=== PATIENT | female | born 1950 | race Caucasian/White ===

== ENCOUNTER 2019-12-19 07:52 | Outpatient (CLI) | payer MEDICARE, MEDICAID, SELFPAY ==
--- NOTE | 2019-12-19 07:59 | NM_ITS ---
WS: [id number] NM bone scan whole body* [id number] REASON FOR EXAM: ELEVATED ALK PHOS TECHNICAL: 24.6 mCi technetium 99m HDP at 0810AM JR right axilla. FINDINGS: Degenerated of activity is noted in both knee joints. The cervical area shows slight increased activity from degenerate changes. The ankle show slight increased activity. No pathological activity is seen throughout the skeletal system. NM/NM bone scan whole body* [id number] IMPRESSION: Mild increased activity from degenerate changes. No pathological activity.
== END 2019-12-19 07:53 | disposition home or self-care (01) ==
PROVIDERS: Family Provider Family Medicine; PCP Family Medicine; Visit Provider Family Medicine
DX: R74.8 Abnormal levels of other serum enzymes (principal); M17.0 Bilateral primary osteoarthritis of knee
CPT/HCPCS: 78306; A9561

== ENCOUNTER 2021-02-18 15:06 | Outpatient (CLI) | payer MEDICARE, MEDICAID, SELFPAY ==
--- NOTE | 2021-02-18 15:16 | CT_ITS ---
WS: [id number] LDCT LUNG CANCER SCREENING TECHNIQUE: Noncontrast CT of the chest with coronal and sagittal reformatted images. CLINICAL INFORMATION: NICOTINE DEPENDENCE, CIGARETTES COMPARISON: None. DLP: 54.58 mGy.cm DIvol: 1.[address] scans at [facility] use at least one of these dose optimization techniques: automat ed exposure control; mA and/or kV adjustment per patient size (includes targeted exams where dose is matched to clinical indication); or iterative reconstruction. FINDINGS: Chronic emphysematous changes. No acute pulmonary infiltrates. Calcified granuloma right upper lobe. 5 mm noncalcified nodule left upper lobe. No mediastinal or hilar lymphadenopathy. 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 This can be further evaluated CTA chest. Calcified hilar and subcarinal lymph nodes. Moderate esophageal hiatal hernia. Adrenal glands are normal. Chronic anterior wedging of the thoracolumbar junction. Mild thoracic kyphosis. : CT/CT lung screening [id number] LUNG-RADS: 2-Benign Appearance or Behavior FOLLOW UP: 12 Month: Continue annual screening with LDCT RECOMMEND CTA CHEST FOR FURTHER DETAIL EVALUATION OF THE ANEURYSMAL AORTIC ARCH .
== END 2021-02-18 15:07 | disposition home or self-care (01) ==
LOC: RAD 15:15
PROVIDERS: PCP Family Medicine; Visit Provider Family Medicine
DX: Z12.2 Encounter for screening for malignant neoplasm of respiratory organs (principal); F17.210 Nicotine dependence, cigarettes, uncomplicated
CPT/HCPCS: 71271

== ENCOUNTER 2021-03-14 09:05 | Outpatient (CLI) | payer MEDICARE, MEDICAID, SELFPAY ==
--- NOTE | 2021-03-14 09:10 | MM_ITS ---
WS: [id number] BILATERAL DIGITAL SCREENING MAMMOGRAPHY WITH CAD CLINICAL INFORMATION: SCREENING HISTORY: Screening mammogram. No current complaints. COMPARISON: TECHNIQUE: Bilateral CC and MLO views. FINDINGS: The breasts are composed of heterogeneous fibroglandular density tissue, which can limit the detectio n of small underlying mass lesions. Bilateral nodular breast tissue is similar in appearance. No susp icious mass, asymmetry, calcifications, or architectural distortion. No evidence of malignancy. Vascu lar calcification. MM/[place] [id number] IMPRESSION: BI-RADS: 2-Benign FOLLOW UP: 1 Year Follow-up Recommend return to annual screening mammography.
== END 2021-03-14 09:06 | disposition home or self-care (01) ==
PROVIDERS: PCP Family Medicine; Visit Provider Family Medicine
DX: Z12.31 Encounter for screening mammogram for malignant neoplasm of breast (principal)
CPT/HCPCS: 77067

== ENCOUNTER 2021-03-14 14:06 | Outpatient (CLI) | payer MEDICARE, MEDICAID, SELFPAY ==
--- NOTE | 2021-03-14 14:11 | CT_ITS ---
WS: [id number] CTA THORACIC TECHNIQUE: Contrast enhanced CTA of the thoracic aorta with coronal and sagittal reformatted images a nd maximum intensity projection (MIP) images. CLINICAL INFORMATION: THORACIC AORTIC ANEURYSM COMPARISON: CT lung screening February 18, 2021 DLP: 1149.[address] scans at [facility] use at least one of these dose optimization techniques: automat ed exposure control; mA and/or kV adjustment per patient size (includes targeted exams where dose is matched to clinical indication); or iterative reconstruction. FINDINGS: Moderate aortic atheromatous disease. Descending thoracic aorta measures 3 cm within normal limits. L obulated aortic arch with small eccentric lobulated pseudoaneurysm measuring 1.2 x 0.9 CM. Moderate a ortic atheromatous disease descending thoracic aorta. Moderate esophageal hiatal hernia. Adrenal glands are normal. Coronary calcification. No mediastinal or hilar lymphadenopathy. No axillary lymphadenopathy. 5 mm noncalcified nodule left upper lobe is un changed. A few calcified granulomas. Chronic appearing anterior wedging in the lower thoracic spine a t T11 CT/CT angio chest [id number] IMPRESSION: 1. Moderate aortic atheromatous disease with lobulated thoracic aorta. 2. 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 No evid ence of intramural hematoma. 3. Coronary calcification. 4. Moderate esophageal hiatal hernia. 5. Noncalcified 5 mm nodule left upper lobe unchanged
[2021-03-14 14:36] LABS: Blood Urea Nitrogen 33 mg/dL (8-23)
[2021-03-14] MEDS: iodixanol 320 mg/mL 100mL Btl IV (14:53)
== END 2021-03-14 14:07 | disposition home or self-care (01) ==
PROVIDERS: PCP Family Medicine; Visit Provider Family Medicine
DX: I71.2 Thoracic aortic aneurysm, without rupture (principal); R91.1 Solitary pulmonary nodule; K44.9 Diaphragmatic hernia without obstruction or gangrene; I25.10 Atherosclerotic heart disease of native coronary artery without angina pectoris
CPT/HCPCS: 71275; 82565; 84520; Q9967

== ENCOUNTER 2021-05-15 13:56 | Outpatient (CLI) | payer MEDICARE, MEDICAID, SELFPAY ==
--- NOTE | 2021-05-15 14:07 | XR_ITS ---
WS: [id number] SCREENING DEXA SCAN [facility] CLINICAL INFORMATION: POST MENOPAUSAL COMPARISON: 019 FINDINGS: The L1-L4 bone mineral density measures 1.306 g/cm2. This corresponds to a T score score of 1.0 and Z score of 2.4. Left femoral neck bone mineral density measures 0.895 g/cm2. This corresponds to a T score of -0.9 an d Z score of 0.4. Right femoral neck bone mineral density measures 0.940 g/cm2. This corresponds to a T score -0.5of an d Z score of 0.8. Mean femoral neck bone mineral density measures 0.917 g/cm2. This corresponds to a T score of -0.7 an d Z score of 0.6. XR/XR DEXA axial skeleton* [id number] IMPRESSION: Normal bone mineralization. Patient's FRAX calculated 10 year probability for major osteoporotic fracture i s 17.8 % and osteoporotic hip fracture is 5.0%.
== END 2021-05-15 13:57 | disposition home or self-care (01) ==
LOC: RADWPI 14:06
PROVIDERS: PCP Family Medicine; Visit Provider Family Medicine
DX: Z78.0 Asymptomatic menopausal state (principal)
CPT/HCPCS: 77080

== ENCOUNTER 2022-05-11 12:12 | Emergency (ER) | payer MEDICARE, MEDICAID, SELFPAY ==
[2022-05-11 12:46] VITALS: BP 112/66; PULSE 85; RESP 16; TEMP 36.8; BMI 29.2
--- NOTE | 2022-05-11 13:08 | CTR_ITS ---
PROCEDURE INFORMATION: Exam: CT Head Without Contrast Exam date and time: 05/11/2022 1:59 PM Age: 71 years old Clinical indication: Injury or trauma; Fall; Blunt trauma (contusions or hematomas); Injury details: Dizzy; Additional info: Stroke like symptoms > 1 week ago TECHNIQUE: Imaging protocol: Computed tomography of the head without contrast. Radiation optimization: All CT scans at this facility use at least one of these dose optimization techniques: automated exposure control; mA and/or kV adjustment per patient size (includes targeted exams where dose is matched to clinical indication); or iterative reconstruction. COMPARISON: PA bone scan whole body* [id number] 12/19/2019 7:59 AM RADIATION DOSE METRICS: Total DLP (mGy-cm): 1010.88 FINDINGS: Brain: Severe calcified intracranial atherosclerotic vessel disease. Mild cerebral atrophy and ischemic leukoencephalopathy. Cerebral ventricles: No ventriculomegaly. Paranasal sinuses: Visualized sinuses are unremarkable. No fluid levels. Mastoid air cells: Visualized mastoid air cells are well aerated. Bones/joints: Unremarkable. No acute fracture. Soft tissues: Unremarkable. CT/CT head wo con* [id number] IMPRESSION: No acute intracranial findings.
--- NOTE | 2022-05-11 14:23 | ECG_ITS ---
[facility] Test Date: 2022-05-11 Pat Name: Katerina Orozco Department: Room: Gender: Female Billing Specialist: : 1950 Requested By: Tolu Freed Order Number: [id number] So MD: Nishant Godoy M.D. Measurements Intervals [place] Rate: 80 P: 61 LA: 162 QRS: 5 QRSD: 87 T: 55 QT: 389 QTc: 451 Interpretive Statements SINUS RHYTHM Compared to ECG 09/19/2019 07:00:00 Myocardial infarct finding no longer present Electronically Signed On 05-11-2022 21:00:22 CDT by Nishant Godoy M.D. [id number]
--- NOTE | 2022-05-11 14:24 | W.ED.GENADLT ---
HPI - General Adult General: Chief complaint: General Medical Stated complaint: Dr told her to go to er for a CT Time Seen by Provider: 05/11/22 13:55 History of Present Illness: 71-year-old presents due to transient difficulty speaking. States that this occurred last Thursday. States that Thursday she saw her primary care doctor who started her on aspirin Plavix and requested she present to the ER for head CT. States that symptoms have completely resolved. Denies any residual speech difficulty. Denies any focal numbness weakness or tingling. Denies any vision change hearing change or vertigo. Denies any headache or head injury. Review of Systems Narrative: - CONSTITUTIONAL: Denies weight loss, fever and chills. - HEENT: Denies changes in vision and hearing. - RESPIRATORY: Denies SOB and cough. - CV: Denies palpitations and CP. - GI: Denies abdominal pain, nausea, vomiting and diarrhea. - : Denies dysuria and urinary frequency. - MSK: Denies myalgia and joint pain. - SKIN: Denies rash and pruritus. - NEUROLOGICAL: Denies headache, weakness, numbness and syncope. - PSYCHIATRIC: Denies suicidal ideation [facility] ED PFS: Medical History (Updated 11/08/19 @ 15:18 by Michi Fernando DO) Carpal tunnel syndrome left carpal tunnel release DOS: 09/19/[address] Fernando Cubital tunnel syndrome cubital tunnel release DOS: 09/19/20 Type 2 diabetes mellitus Social History Smoking and tobacco status: current every day smoker Quit status (tobacco): considering quitting Alcohol intake: never Physical Exam Narrative: EXAM NARRATIVE: - GENERAL: Alert and oriented x 3. No acute distress. Well-nourished. - EYES: EOMI. Anicteric. - HENT: Atraumatic, no C-spine tenderness. Moist mucous membranes. No scleral icterus. No cervical lymphadenopathy. - LUNGS: Clear to auscultation bilaterally. No accessory muscle use. Equal lung sounds bilaterally. No respiratory distress. - CARDIOVASCULAR: Regular rate and rhythm. No murmur. No JVD. - ABDOMEN: Soft, non-tender and non-distended. Negative CVA tenderness bilaterally, no rebound or guarding, negative Silva sign. No palpable masses. - EXTREMITIES: No edema. Non-tender. - SKIN: No rashes or lesions. Warm. - NEUROLOGIC: No meningismus or focal neurological deficits. CN II-XII grossly intact. - PSYCHIATRIC: Cooperative. Appropriate mood and affect. Course Vital Signs: Vital signs: Vital Signs Temperature 98.3 F 05/11/22 12:46 Pulse Rate 85 05/11/22 12:46 Respiratory Rate 16 05/11/22 12:46 Blood Pressure 112/66 05/11/22 12:46 MDM - General Adult Medical Decision Making 71-year-old presents due to transient speech difficulty last week. CT scan of the head does not reveal any intracranial hemorrhage or acute abnormality. Lab work is currently pending however prior to lab work being resulted patient eloped. Lab Data : 05/11/22 15:30 05/11/22 15:[address] 05/11/22 13:08 IMPRESSION: No acute intracranial findings. Laboratory Results WBC 11.0 10^3/uL (4.0-10.0) H 05/11/22 15:30 RBC 5.01 10^6/uL (4.1-5.3) 05/11/22 15:30 Hgb 13.9 g/dL (11.5-15.3) 05/11/22 15:30 Hct 43.0 % (37.0-47.0) 05/11/22 15:30 MCV 85.8 fl (81-99) 05/11/22 15:30 MCH 27.7 pg (28.0-34.0) L 05/11/22 15:30 MCHC 32.3 g/dL (30.0-36.0) 05/11/22 15:30 RDW 13.3 % (12.1-15.1) 05/11/22 15:30 Plt Count 289 10^3/cmm (130-400) 05/11/22 15:30 MPV 9.5 fL (7.4-10.4) 05/11/22 15:30 Neut % (Auto) 64.1 % 05/11/22 15:30 Lymph % (Auto) 24.5 % 05/11/22 15:30 Taliaferro % (Auto) 8.2 % 05/11/22 15:30 Eos % (Auto) 2.1 % 05/11/22 15:30 Baso % (Auto) 0.5 % 05/11/22 15:30 Neut # (Auto) 7.01 10^3/uL (1.8-7.7) 05/11/22 15:30 Lymph # (Auto) 2.7 10^3/uL (0.8-4.8) 05/11/22 15:30 Taliaferro # (Auto) 0.9 10^3/uL (0.2-0.9) 05/11/22 15:30 Eos # (Auto) 0.2 10^3/uL (0.0-0.8) 05/11/22 15:30 Baso # (Auto) 0.1 10^3/uL (0.0-0.1) 05/11/22 15:30 Nucleated RBC % (auto) 0 % 05/11/22 15:30 Nucleated RBCs # 0.0 /100WBC 05/11/22 15:30 Sodium 140 mmol/L (136-145) 05/11/22 15:30 Chloride 104 mmol/L (98-107) 05/11/22 15:30 Carbon Dioxide 23 mmol/L (22-29) 05/11/22 15:30 GFR Calculation Not Reportable 05/11/22 15:30 Calcium 9.5 mg/dL (8.5-10.5) 05/11/22 15:30 Total Bilirubin 0.5 mg/dL (0.15-1.2) 05/11/22 15:30 AST 11 U/L (0-32) 05/11/22 15:30 ALT 7 U/L (0-33) 05/11/22 15:30 Total Protein 7.2 g/dL (6.6-8.7) 05/11/22 15:30 Albumin 3.7 g/dL (3.5-5.2) 05/11/22 15:30 Globulin 3.5 g/dL (1.3-4.6) 05/11/22 15:30 EKG Data EKG 1: Computer generated interpretation: Head CT 05/11/22 13:08 IMPRESSION: No acute intracranial findings. Other EKG comments: Normal sinus rhythm, rate of 80, no sign of acute ischemia or other acute abnormality. Discharge Plan Discharge Condition: Stable Prescriptions: No Action bupropion HCl [Wellbutrin SR] 150 mg tablet sustained-release 12 hr 150 mg PO BID 0RF irbesartan-hydrochlorothiazide 300-12.5 mg tablet 1 tab PO QDAY 0RF Janumet XR 100-1,000 mg tablet, ER multiphase 24 hr 1 tab PO QDAY 0RF atorvastatin 80 mg tablet 80 mg PO QDAY 0RF Trelegy Ellipta 100-62.5-25 mcg blister with device 1 inh INHALATION QDAY 0RF albuterol sulfate [Ventolin HFA] 90 mcg/actuation HFA aerosol inhaler 2 puff INHALATION Q6H PRN0RF duloxetine 60 mg capsule,delayed release(DR/EC) 60 mg PO QDAY 0RF omeprazole 40 mg capsule,delayed release(DR/EC) 40 mg PO QDAY 0RF amlodipine 5 mg tablet 5 mg PO QDAY 0RF Referrals: Edvin Casiano MD [Primary Care Provider] - Coding Level of Care Code ED Drilling Supervisor for Kalin Collado
[2022-05-11 15:34] LABS: Basophils # 0.1 10^3/uL (0.0-0.1); Basophils % 0.5 %; Eosinophils # 0.2 10^3/uL (0.0-0.8); Eosinophils % 2.1 %; Hemoglobin 13.9 g/dL (11.5-15.3); Lymphocytes # 2.7 10^3/uL (0.8-4.8); Lymphocytes % 24.5 %; Mean Corpuscular HGB Conc 32.3 g/dL (30.0-36.0); Mean Corpuscular Hemoglobin 27.7 pg (28.0-34.0); Mean Corpuscular Volume 85.8 fl (81-99); Mean Platelet Volume 9.5 fL (7.4-10.4); Monocytes # 0.9 10^3/uL (0.2-0.9); Monocytes % 8.2 %; Neutrophils # 7.01 10^3/uL (1.8-7.7); Neutrophils % 64.1 %; Nucleated Red Blood Cells % 0 %; Platelet Count 289 10^3/cmm (130-400); Red Blood Count 5.01 10^6/uL (4.1-5.3); Red Cell Distribution Width 13.3 % (12.1-15.1)
[2022-05-11 16:03] LABS: Alanine Aminotransferase 7 U/L (0-33); Albumin Level 3.7 g/dL (3.5-5.2); Alkaline Phosphatase 148 IU/L (35-105); Aspartate Amino Transferase 11 U/L (0-32); Blood Urea Nitrogen 30 mg/dL (8-23); Calcium 9.5 mg/dL (8.5-10.5); Carbon Dioxide 23 mmol/L (22-29); Chloride 104 mmol/L (98-107); Globulin 3.5 g/dL (1.3-4.6); Glucose 125 mg/dL (65-115); Osmolality Calculated 298 mOsm/kg (285-295); Sodium 140 mmol/L (136-145); Total Bilirubin 0.5 mg/dL (0.15-1.2); Total Protein 7.2 g/dL (6.6-8.7)
[2022-05-11 16:17] LABS: Anion Gap 17.6 (5-19); Potassium 4.6 mmol/L (3.5-5.1)
== END 2022-05-11 16:15 | disposition left against medical advice (07) ==
PROVIDERS: Emergency Provider Emergency Medicine; PCP Family Medicine
DX: R47.9 Unspecified speech disturbances (principal); E11.9 Type 2 diabetes mellitus without complications; F17.210 Nicotine dependence, cigarettes, uncomplicated
CPT/HCPCS: 70450; 80053; 85025; 93005; 99284

== ENCOUNTER → 2022-05-21 10:48 | Outpatient (BNVA) | payer MEDICARE, MEDICAID, SELFPAY | PROVIDERS: PCP Family Medicine; Visit Provider Internal Medicine Cardiovascular Disease | DX: R42 Dizziness and giddiness (principal); I63.9 Cerebral infarction, unspecified | CPT/HCPCS: 93270 ==

== ENCOUNTER 2022-06-04 23:10 | Emergency (ER) | payer MEDICARE, MEDICAID, SELFPAY ==
[2022-06-04 23:23] VITALS: BP 190/85; PULSE 76; RESP 18; TEMP 36.6; O2SAT 96; BMI 27.4
[2022-06-04 23:28] VITALS: BP 178/93; PULSE 72; RESP 20; O2SAT 98
--- NOTE | 2022-06-04 23:49 | XRR_ITS ---
PROCEDURE INFORMATION: Exam: XR Cervical Spine Exam date and time: 06/04/2022 11:58 PM Age: 71 years old Clinical indication: Patient HX: Patient had sudden onset of left sided neck pain three weeks ago while doing house cleaning that has worsened. No recent injury. TECHNIQUE: Imaging protocol: Radiologic exam of the cervical spine. Views: 2 or 3 views. COMPARISON: NM bone scan whole body* [id number] 12/19/2019 7:59 AM FINDINGS: Bones/joints: Multilevel severe disc space narrowing and productive degenerative changes throughout the spine. Soft tissues: Unremarkable. Vasculature: Scattered vascular calcifications. XR/XR cervical spine 3V* [id number] IMPRESSION: 1. Negative for fracture or dislocation. 2. Multilevel severe disc space narrowing and productive degenerative changes throughout the spine. 3. Scattered vascular calcifications.
[2022-06-04] MEDS: dexamethasone 10 mg/mL INJ IM (23:54)
[2022-06-04] MEDS: ketorolac 30 mg/mL INJ IM (23:54)
--- NOTE | 2022-06-05 | ED_ITS ---
HPI - Neck Pain/Injury General: Chief Complaint: Neck Pain/Injury Stated Complaint: Neck pain Time Seen by Provider: 06/04/22 23:48 Source: patient Mode of arrival: ambulatory Limitations: no limitations History of Present Illness: 71-year-old female states been having neck pain over the last 3 weeks. States that she has no midline pain its worse on the left side but having bilateral pain states its worse with movement improved with rest states she has tried muscle relaxants with no improvement denies any injuries to start the pain denies any radiation of pain denies any weakness or numbness down her arms. Associated symptoms: Denies headache(s) or nausea Review of Systems Const: Denies: fever(s), chills, body aches or change in appetite Eyes: Denies: blurry vision or eye discomfort ENMT: Denies: throat pain or dental pain Card: Denies: chest pain Resp: Denies: dyspnea GI: Denies: abdominal pain, nausea, vomiting or diarrhea : Denies: dysuria Musc: Reports: neck pain Skin/Breast: Denies: rash Neuro: Denies: headache(s) Psych: Denies: depression Elroy/Lymph: Denies: easy bruising All/Imm: Denies: urticaria PFSH ED PFSH: Medical History Carpal tunnel syndrome left carpal tunnel release DOS: 09/19/[address] Fernando Cubital tunnel syndrome cubital tunnel release DOS: 09/19/20 Type 2 diabetes mellitus Social History Smoking and tobacco status: current every day smoker Quit status (tobacco): considering quitting Alcohol intake: never Physical Exam Const: COMMON NORMALS: no acute distress, patient oriented x3 and healthy appearing HENMT: COMMON NORMALS: normocephalic and atraumatic HEAD & SCALP: normocephalic and atraumatic Eye: COMMON NORMALS: Equal, round and reactive pupils present and EOMs intact bilaterally PUPIL: Yes Equal, round and reactive pupils present Neck/C-Spine: COMMON NORMALS: full ROM and supple OTHER: No midline tenderness does have paraspinal tenderness mainly on the left side the neck and left trapezius Chest: COMMONS NORMALS: normal inspection of the chest and normal palpation of entire chest wall Resp: COMMON NORMALS: normal respiratory effort, No retractions, No use of accessory muscles and clear to auscultation bilaterally AUSCULTATION: clear to auscultation bilaterally Cardio: COMMON NORMALS: regular rate, regular rhythm and No murmurs present (Cardio) RATE: regular rate RHYTHM: regular rhythm GI: COMMON NORMALS: Normal to inspection, nondistended, normoactive bowel sounds present, Soft to palpation, non-tender and no masses PALPATION: Yes Soft to palpation Extremity: COMMON NORMALS: normal to inspection and full ROM Neuro: COMMON NORMALS: patient oriented x3, moves all extremities and no focal motor deficits Psych: COMMON NORMALS: mental status grossly normal, Normal thought process present and cooperative THOUGHT PROCESS: Normal thought process present Skin: COMMON NORMALS: no rashes or lesions noted and no wounds GENERAL SKIN EXAM: no rashes or lesions noted Course Vital Signs: Vital signs: Vital Signs Temperature 97.9 F 06/04/22 23:23 Pulse Rate 72 06/04/22 23:28 Respiratory Rate 20 H 06/04/22 23:28 Blood Pressure 178/93 06/04/22 23:28 Pulse Oximetry 98 06/04/22 23:28 Oxygen Delivery Me thod 06/04/22 23:28 MDM - Neck Pain/Injury Medical Decision Making Patient presents with neck pain is likely muscular in origin she is well- appearing here she had no injuries patient given steroid we will prescribe her Naprosyn Robaxin for home she is to follow-up with PCP and return if worsening. Discharge Plan Discharge Patient Disposition: Home Clinical Impression: Neck pain Condition: Stable Prescriptions: New methocarbamol 750 mg tablet 750 mg PO Q6H PRN (Reason: spasms) Qty: 20 0RF Naprosyn 500 mg tablet 500 mg PO BID PRN (Reason: pain) Qty: 20 0RF No Action bupropion HCl [Wellbutrin SR] 150 mg tablet sustained-release 12 hr 150 mg PO BID irbesartan-hydrochlorothiazide 300-12.5 mg tablet 1 tab PO QDAY Janumet XR 100-1,000 mg tablet, ER multiphase 24 hr 1 tab PO QDAY atorvastatin 80 mg tablet 80 mg PO QDAY Trelegy Ellipta 100-62.5-25 mcg blister with device 1 inh INHALATION QDAY albuterol sulfate [Ventolin HFA] 90 mcg/actuation HFA aerosol inhaler 2 puff INHALATION Q6H PRN duloxetine 60 mg capsule,delayed release(DR/EC) 60 mg PO QDAY omeprazole 40 mg capsule,delayed release(DR/EC) 40 mg PO QDAY amlodipine 5 mg tablet 5 mg PO QDAY Discharge Orders: Discharge ED (Routine); Ordered 06/05/22 Ordered By: Julisa Melgoza Referrals: Edvin Casiano MD [Primary Care Provider] - 1-3 days Discharge Diet: Advance as tolerated Discharge Activity: Resume usual activity Patient Instructions: Cervical Strain (ED) Coding Level of Care Code ED Applied Exercise Physiologist for Chg Fwd Exam Comprehensive
[2022-06-05] MEDS: HYDROcodone-acetaminophen 5-325 mg Tablet 1 TAB PO (00:04)
[2022-06-05 00:30] VITALS: BP 178/93; PULSE 70; RESP 16; O2SAT 94
== END 2022-06-05 00:32 | disposition home or self-care (01) ==
PROVIDERS: Emergency Provider Emergency Medicine; PCP Family Medicine
DX: M54.2 Cervicalgia (principal); E11.9 Type 2 diabetes mellitus without complications; F17.210 Nicotine dependence, cigarettes, uncomplicated
CPT/HCPCS: 72040; 99284; J1100; J1885

== ENCOUNTER 2022-07-08 06:48 | Outpatient (CLI) | payer MEDICARE, MEDICAID, SELFPAY ==
--- NOTE | 2022-07-08 06:55 | CT_ITS ---
WS: [id number] CTA HEAD AND NECK TECHNIQUE: Contrast enhanced CTA of the head and neck with coronal and sagittal reformatted images an d maximum intensity projection (MIP) images. NASCET criteria utilized. CLINICAL INFORMATION: ACUTE CVA COMPARISON: CT head May 11, 2022 DLP: 560.[address] scans at [facility] use at least one of these dose optimization techniques: automated e xposure control; mA and/or kV adjustment per patient size (includes targeted exams where dose is matc hed to clinical indication); or iterative reconstruction. FINDINGS: RIGHT: RIGHT common carotid artery is patent. Retropharyngeal course RIGHT carotid bulb and RIGHT cer vical ICA. Dense Calcification RIGHT carotid bulb with RIGHT ICA stenosis 72%. RIGHT ICA remains hughes nt to the skull base. LEFT: LEFT common carotid artery is patent. Retropharyngeal course LEFT carotid bulb and LEFT ICA. LE FT ICA remains patent to the skull base. Densely calcified LEFT carotid bulb with LEFT ICA stenosis 8 4 % INTRACRANIAL CTA: RIGHT dominant vertebral artery. Tiny LEFT vertebral artery. Vertebral arteries are patent to the bas ilar junction. Tiny patent basilar artery. Dominant anterior circulation. Patent posterior communicat ing arteries bilaterally. Normal vascularity to the SAP FUNCTIONAL ANALYST territory bilaterally. Both ICAs are patent to the skull base. Mild cavernous carotid calcification. Patent anterior communi cating artery. Normal vascularity to the EVERETTE and MCA territories bilaterally. No flow-limiting intrac ranial stenosis. Emphysematous changes in the lung apices. Moderate atheromatous disease aortic arch with aneurysmal d ilatation measuring 3.2 CM. 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 Mastoid air cells are well aerated. Paranasal sinuses are well aerated. Small retention cyst in the L EFT greater than RIGHT maxillary sinuses. Normal parapharyngeal fat. Normal posterior nasopharynx. Mo derate spondylitic changes cervical spine. CT/CT angio headneck* [id number] IMPRESSION: 1. RIGHT ICA stenosis 72% 2. High-grade LEFT ICA stenosis 84 % 3. Densely calcified plaque both carotid bulbs extending into the ICAs LEFT gr eater than RIGHT. Retropharyngeal course to both carotid bulbs and both ICAs. B oth ICAs remain patent to the skull base. Somewhat reduced caliber of the LEFT ICA distal to the stenosis which remains patent. 4. RIGHT dominant vertebral artery. 5. Intracranial Anterior dominant circulation 6. No flow-limiting intracranial stenosis. 7. 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
[2022-07-08 07:21] LABS: Blood Urea Nitrogen 27 mg/dL (8-23)
[2022-07-08] MEDS: iohexol 350 mg/mL 100 mL Btl IV (07:31)
== END 2022-07-08 06:49 | disposition home or self-care (01) ==
LOC: RAD 06:48
PROVIDERS: PCP Family Medicine; Visit Provider Family Medicine
DX: I63.9 Cerebral infarction, unspecified (principal); I65.23 Occlusion and stenosis of bilateral carotid arteries
CPT/HCPCS: 70496; 70498; 82565; 84520

== ENCOUNTER 2022-07-22 08:23 | Outpatient (CLI) | payer MEDICARE, MEDICAID, SELFPAY ==
--- NOTE | 2022-07-22 08:34 | MR_ITS ---
WS: [id number] MRI BRAIN WITH AND WITHOUT CONTRAST HISTORY: POSTERIOR CIRCULATION STROKE COMPARISON: CT head 05/11/2022 TECHNIQUE: Multiplanar imaging performed through the brain with MultiHance 20 ml's IV. No acute infarcts are seen. Solorzano-white matter differentiation is well preserved. Moderate small vesse l ischemic disease noted bilaterally slightly greater on the RIGHT. There is also prior ischemic dise ase in the central and RIGHT raymon. No large territory infarct. No susceptibility artifacts or prior lacunar infarcts. Ventricles and extra-axial spaces are normal. Clivus and pituitary gland are normal. Visualized posterior fossa and brainstem are also normal. Postcontrast images are negative for masses or vascular malformations. Dural venous sinuses are normal. Paranasal sinuses: Well aerated with no significant disease. Mastoid air cells: Normal. Calvarium and scalp: Normal. MR/MR head wo/w con [id number] IMPRESSION: 1. No acute infarct or hemorrhage. 2. Moderate small vessel ischemic disease involving the supratentorial white m atter and also the raymon, greatest on the RIGHT. 3. No enhancing mass.
[2022-07-22] MEDS: gadobenate dimeglumine 20 mL vial IV (10:56)
== END 2022-07-22 08:24 | disposition home or self-care (01) ==
LOC: RAD 08:24
PROVIDERS: PCP Family Medicine; Visit Provider Family Medicine
DX: I63.9 Cerebral infarction, unspecified (principal); I67.82 Cerebral ischemia
CPT/HCPCS: 70553

== ENCOUNTER → 2022-08-14 14:05 | Outpatient (BNVA) | payer MEDICARE, MEDICAID, SELFPAY | PROVIDERS: PCP Family Medicine; Visit Provider Thoracic Surgery (Cardiothoracic Vascular Surgery) | DX: I65.23 Occlusion and stenosis of bilateral carotid arteries (principal); Z87.891 Personal history of nicotine dependence | CPT/HCPCS: 99203; 99204 ==

== ENCOUNTER 2023-01-03 16:24 | Emergency (ER) | payer MEDICARE, MEDICAID, SELFPAY ==
[2023-01-03 16:38] VITALS: BP 117/82; PULSE 90; RESP 17; TEMP 36.6; O2SAT 94; BMI 28.6
--- NOTE | 2023-01-03 18:35 | XRR_ITS ---
PROCEDURE INFORMATION: Exam: XR Right Wrist Exam date and time: 01/03/2023 6:41 PM Age: 72 years old Clinical indication: Injury or trauma; Fall; Blunt trauma (contusions or hematomas); Wrist; Right TECHNIQUE: Imaging protocol: Radiologic exam of the right wrist. Views: 3 or more views. COMPARISON: No relevant prior studies available. 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 There is marked joint space narrowing, subchondral sclerosis and marginal osteophytes. No acute fracture or dislocation. Osteopenia. Chondrocalcinosis at the triangular fibrocartilage. Soft tissues: Mild soft tissue swelling. XR/XR wrist RT min 3V* [id number] IMPRESSION: 1. No acute fracture or dislocation. 2. 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
[2023-01-03 18:42] VITALS: BP 109/59; PULSE 75; RESP 16; O2SAT 98
--- NOTE | 2023-01-03 18:47 | ED_ITS ---
HPI - Extremity Problem General: Chief complaint: Extremity Injury, Upper Stated complaint: Dizzy Spell\Fell\Right Breast Pain Time Seen by Provider: 01/03/23 18:34 History of Present Illness: 72-year-old comes in today for evaluation of right wrist injury. Patient fell 1 week ago catching herself with her right wrist. Since then patient has had discomfort to the right wrist. Patient appears nontoxic. Patient appears no acute distress. Review of Systems General: Reports: 10 or more systems reviewed and unremarkable except in HPI and below GI: Denies: vomiting : Denies: difficulty voiding Musc: Reports: extremity pain (Right wrist) [facility] ED PFSH: Medical History (Updated 01/03/23 @ 19:30 by ODALIS Woody) Carotid stenosis, bilateral Carpal tunnel syndrome left carpal tunnel release DOS: 09/19/[address] Fernando Cubital tunnel syndrome cubital tunnel release DOS: 09/19/20 Type 2 diabetes mellitus Family History Sister Cancer Brother Cancer Hypertension Father Hypertension Denies family history of Diabetes CAD (coronary artery disease) Stroke Social History Smoking and tobacco status: former smoker Quit status (tobacco): has quit using tobacco Year quit tobacco: 3 weeks ago Former quit date comment: smoked 1 pack per day x 50 years Alcohol intake: former Year of sobriety/quit date alcohol: 2000 Lives independently: Yes Household members: none Housing: House Marital status: Number of children: 3 Pets and animals: Yes Pets & animals: dog(s) Physical Exam Const: COMMON NORMALS: alert HENMT: COMMON NORMALS: normocephalic HEAD & SCALP: normocephalic Neck/C-Spine: COMMON NORMALS: full ROM Resp: COMMON NORMALS: normal respiratory effort Cardio: COMMON NORMALS: regular rate RATE: regular rate Extremity: RIGHT UPPER EXTREMITY: Yes wrist (Tenderness with palpation of the wrist joint, and with range of motion) Right wrist: Yes inspection, Yes palpation and Yes ROM Neuro: SENSORIUM/ORIENTATION: Yes alert Skin: COMMON NORMALS: turgor normal GENERAL SKIN EXAM: turgor normal Course Vital Signs: Vital signs: Vital Signs Temperature 97.9 F 01/03/23 16:38 Pulse Rate 75 01/03/23 18:42 Respiratory Rate 16 01/03/23 18:42 Blood Pressure 109/59 01/03/23 18:42 Pulse Oximetry 98 01/03/23 18:42 Oxygen Delivery Me thod 01/03/23 18:42 MDM - Extremity (Nontraumatic) Medical Decision Making Patient comes in today with complaints of right wrist pain. On exam she has some mild swelling and tenderness of the wrist joint line. Patient also has some decreased range of motion due to pain. Distal pulses and sensation are intact. Differential diagnosis includes but not limited to fracture, sprain, dislocation. X-ray noted no fracture but significant osteoarthritis. Believe the patient probably has a wrist sprain and exacerbation of her osteoarthritis. Patient was given a dose of ketorolac to help with pain and inflammation and will be continued with tramadol for further pain relief. Patient was also given a elastic bandage for comfort and support. Patient reported understanding of care plan and need for follow-up or return to the ER. Lab Data Radiology Impressions Wrist X-Ray 01/03/23 18:35 IMPRESSION: 1. No acute fracture or dislocation. 2. 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 Discharge Plan Discharge Patient Disposition: Home Clinical Impression: Sprain and strain of wrist Osteoarthritis of wrist Qualifiers: Osteoarthritis type: unspecified Laterality: right Qualified Code(s): M19.031 - Primary osteoarthritis, right wrist Condition: Stable Prescriptions: New celecoxib 100 mg capsule 100 mg PO BID Qty: 20 0RF tramadol 50 mg tablet 50 mg PO Q8H PRN (Reason: pain) Qty: 14 0RF No Action albuterol sulfate [Ventolin HFA] 90 mcg/actuation HFA aerosol inhaler 2 puff INHALATION Q6H PRN omeprazole 40 mg capsule,delayed release(DR/EC) 40 mg PO QDAY amlodipine 5 mg tablet 10 mg PO QDAY metoprolol succinate 100 mg tablet extended release 24 hr 100 mg PO DAILY metformin 500 mg tablet extended release 24hr 500 mg PO BID irbesartan 300 mg tablet 300 mg PO DAILY rosuvastatin 40 mg tablet 40 mg PO DAILY albuterol sulfate 2.5 mg /3 mL (0.083 %) solution for nebulization 2.5 mg inhalation Q6H divalproex 500 mg tablet extended release 24 hr 500 mg PO DAILY Breztri Aerosphere 160-9-4.8 mcg/actuation HFA aerosol inhaler 2 inh inhalation BID Discharge Orders: Discharge ED (Routine); Ordered 01/03/23 Ordered By: Kiko Jason Referrals: Edvin Casiano MD [Primary Care Provider] - Discharge Diet: Usual diet Discharge Activity: Increase activity as tolerated Patient Instructions: Wrist Sprain (ED) Activity Restrictions/Additional Instructions: Use elastic bandage for comfort and support. Take celecoxib twice a day for pain and inflammation. Drink plenty of water with medication. Use acetaminophen for further pain relief. Use tramadol for severe pain. Follow-up with primary care for further instructions. Return to ED for new concerns Coding Level of Care Code ED Head Resident for Kalin Collado
[2023-01-03] MEDS: ketorolac 30 mg/mL INJ IM (19:02)
[2023-01-03] MEDS: TRAMadol 50 mg Tablet PO (19:02)
== END 2023-01-03 19:45 | disposition home or self-care (01) ==
PROVIDERS: Emergency Provider Nurse Practitioner Family; PCP Family Medicine
DX: S63.501A Unspecified sprain of right wrist, initial encounter (principal); M19.031 Primary osteoarthritis, right wrist; E11.9 Type 2 diabetes mellitus without complications; Z79.84 Long term (current) use of oral hypoglycemic drugs; Z87.891 Personal history of nicotine dependence; W19.XXXA Unspecified fall, initial encounter
CPT/HCPCS: 73110; 96372; 99284; J1885

== ENCOUNTER 2023-04-15 12:46 | Outpatient (CLI) | payer MEDICARE, MEDICAID, SELFPAY ==
--- NOTE | 2023-04-15 12:59 | MM_ITS ---
WS: [id number] BILATERAL 3D TOMOSYNTHESIS DIGITAL SCREENING MAMMOGRAPHY WITH CAD CLINICAL INFORMATION: SCREENING HISTORY: Screening mammogram. No current complaints. COMPARISON: None. TECHNIQUE: Bilateral CC and MLO views. FINDINGS: The breasts are composed of heterogeneous fibroglandular density tissue, which can limit the detectio n of small underlying mass lesions. Bilateral nodular densities are similar in appearance. No suspici ous mass, asymmetry, calcifications, or architectural distortion. No evidence of malignancy. Vascular calcification. MM/[place] [id number] IMPRESSION: BI-RADS: 2-Benign FOLLOW UP: 1 Year Follow-up Recommend return to annual screening mammography.
--- NOTE | 2023-04-15 13:31 | XR_ITS ---
WS: [id number] SCREENING DEXA SCAN [facility] CLINICAL INFORMATION: POSTMENOPAUSAL COMPARISON: 2020 FINDINGS: The L1-L4 bone mineral density measures 1.328 g/cm2. This corresponds to a T score score of 1.2 and Z score of 2.6. Left femoral neck bone mineral density measures 0.812 g/cm2. This corresponds to a T score of -1.6 an d Z score of -0.2. Right femoral neck bone mineral density measures 0.842 g/cm2. This corresponds to a T score -1.3of an d Z score of 0.1. Mean femoral neck bone mineral density measures 0.827 g/cm2. This corresponds to a T score of -1.4 an d Z score of 0.0. XR/XR DEXA axial skeleton* [id number] IMPRESSION: Normal bone mineralization lumbar spine. Osteopenia femoral necks. Patient's FRAX calculated 10 year probability for major osteoporotic fracture i s 29.5 % and osteoporotic hip fracture is 11.3%. Bone mineral density lumbar spine has increased 1.7% since 2020. This is likely spuriously elevated due to endplate sclerosis. Bone mineral density in the femoral necks has decreased -9.8% since 2020
== END 2023-04-15 12:47 | disposition home or self-care (01) ==
LOC: RAD 12:50
PROVIDERS: PCP Family Medicine; Visit Provider Family Medicine
DX: Z12.31 Encounter for screening mammogram for malignant neoplasm of breast (principal); M85.862 Other specified disorders of bone density and structure, left lower leg; M85.861 Other specified disorders of bone density and structure, right lower leg; Z78.0 Asymptomatic menopausal state
CPT/HCPCS: 77063; 77067; 77080

== ENCOUNTER 2023-08-07 14:48 | Outpatient (CLI) | payer MEDICARE, MEDICAID, SELFPAY ==
--- NOTE | 2023-08-07 14:55 | USCV_ITS ---
Katerina Orozco Age: 72 Gender: F : 1950 Exam Date: 08/07/2023 15:09 Ordering Phys: Edvin Casiano MD Technologist: [place] [facility] [place]: lt leg pain PROCEDURES: Venous duplex imaging was performed in only the left lower extremity. The following venous structures were evaluated: common femoral vein, profunda vein, proximal portion of the greater saphenous vein, superficial femoral vein, and the popliteal vein. In addition, the posterior tibial and peroneal trunk were evaluated. FINDINGS: Normal 2-D Doppler and augmentation and compressibility throughout the lower extremity venous structures. Additional imaging through the proximal calf veins also reveals no thrombus. Limited evaluation of the greater saphenous vein is patent with no thrombus. CONCLUSIONS No evidence of left lower extremity DVT. Hank Cardona MD (Electronically Signed) Final Date: 07 August 2023 15:57 S
== END 2023-08-07 14:49 | disposition home or self-care (01) ==
PROVIDERS: PCP Family Medicine; Visit Provider Family Medicine
DX: M79.605 Pain in left leg (principal)
CPT/HCPCS: 93971

== ENCOUNTER 2024-08-08 20:35 | Emergency (ER) | payer MEDICARE, MEDICAID, SELFPAY ==
[2024-08-08 21:02] VITALS: BP 97/69; PULSE 86; RESP 16; TEMP 36.7; O2SAT 95
[2024-08-08 22:47] LABS: Basophils # 0.1 10^3/uL (0.0-0.1); Basophils % 0.4 %; Eosinophils # 0.1 10^3/uL (0.0-0.8); Eosinophils % 0.9 %; Hematocrit 37.5 % (36-47); Lymphocytes # 1.5 10^3/uL (0.8-4.8); Lymphocytes % 11.3 %; Mean Corpuscular HGB Conc 34.4 g/dL (30-55); Mean Corpuscular Hemoglobin 29.4 pg (27-33); Mean Corpuscular Volume 85.4 fl (85-98); Mean Platelet Volume 9.3 fL (7.4-10.4); Monocytes % 7.2 %; Neutrophils # 10.62 10^3/uL (1.8-7.7); Neutrophils % 79.6 %; Nucleated Red Blood Cells % 0 %; Platelet Count 249 10^3/cmm (157-399); Red Blood Count 4.39 10^6/uL (3.85-5.65); Red Cell Distribution Width 13.6 % (12.1-15.1); White Blood Count 13.34 10^3/uL (3.29-11.43)
[2024-08-08 22:53] VITALS: BP 144/83; PULSE 81; RESP 16; O2SAT 95
--- NOTE | 2024-08-08 22:54 | W.ED.ARRPALP ---
HPI - Arrhythmia/Palpitations General: Chief Complaint: Arrhythmia/Palpitations Stated Complaint: Low BP Time Seen by Provider: 08/08/24 21:55 History of Present Illness: Patient presents to the ER complaining of low blood pressure today. Her blood pressure in the systolics was in 70s and 90s. Patient was recently taken off her Celebrex and started on hydrocodone 7.5's. She is take this medicine twice a day. Patient's had also been vomiting. She reports abdominal pains been going on for months and she has been working for GI bleed that is why they stopped her Celebrex. Related Data Home Medications Medication Instructions Recorded Confirmed albuterol sulfate 90 mcg/actuation 2 puff inhalation Q6H PRN 11/07/19 08/14/22 aerosol inhaler (Ventolin HFA) omeprazole 40 mg capsule,delayed 40 mg PO QDAY 11/07/19 08/14/22 release albuterol sulfate 2.5 mg/3 mL 2.5 mg inhalation Q6H 08/14/22 08/14/22 (0.083 %) solution for nebulization amlodipine 5 mg tablet 10 mg PO QDAY 08/14/22 08/14/22 budesonide 160 mcg-glycopyr 9 2 inh inhalation BID 08/14/22 08/14/22 mcg-formot 4.8 mcg/actuation HFA inhaler (Breztri Aerosphere) divalproex 500 mg tablet,extended 500 mg PO DAILY 08/14/22 08/14/22 release 24 hr irbesartan 300 mg tablet 300 mg PO DAILY 08/14/22 08/14/22 metformin 500 mg tablet,extended 500 mg PO BID 08/14/22 08/14/22 release 24hr (osmotic) metoprolol succinate 100 mg 100 mg PO DAILY 08/14/22 08/14/22 tablet,extended release 24 hr rosuvastatin 40 mg tablet 40 mg PO DAILY 08/14/22 08/14/22 Previous Rx's Medication Instructions Recorded celecoxib 100 mg capsule 100 mg PO BID #20 caps 01/03/23 tramadol 50 mg tablet 50 mg PO Q8H PRN pain #14 tabs 01/03/23 magnesium oxide 400 mg PO BID #30 caps 08/09/24 ondansetron HCl 4 mg tablet 4 mg PO Q8H PRN nausea and 08/09/24 vomiting #14 tabs potassium chloride 20 mEq 20 meq PO BID #20 tabs 08/09/24 tablet,extended release Allergies Allergy/AdvReac Type Severity Reaction Status Date / Time codeine Allergy itching Verified 08/14/22 14:14 lamotrigine [From Lamictal] Allergy itching Verified 08/14/22 14:14 NSAIDS (Non-Steroidal Allergy ADR-Gastrointestinal Verified 08/08/24 21:11 Anti-Inflamma Upset Review of Systems General: Reports: 10 or more systems reviewed and unremarkable except in HPI and below PFSH ED PFSH: Medical History Carotid stenosis, bilateral Carpal tunnel syndrome left carpal tunnel release DOS: 09/19/[address] Fernando Type 2 diabetes mellitus Cubital tunnel syndrome cubital tunnel release DOS: 09/19/20 Family History Sister Cancer Brother Cancer Hypertension Father Hypertension Denies family history of Diabetes CAD (coronary artery disease) Stroke Social History Smoking and tobacco/nicotine status: former use of tobacco/nicotine Quit status (tobacco/nicotine): has quit using Year quit tobacco: 3 weeks ago Former quit date comment: smoked 1 pack per day x 50 years Alcohol intake: former Year of sobriety/quit date alcohol: 2000 Substance/Drug Use: never Lives independently: Yes Household members: none Housing: House Marital status: Number of children: 3 Pets and animals: Yes Pets & animals: dog(s) Physical Exam Const: COMMON NORMALS: no acute distress, average body habitus, patient oriented x3, no limitations, healthy appearing, alert and well nourished HENMT: COMMON NORMALS: normocephalic, atraumatic, hearing grossly normal bilaterally, external ears normal, Normal external nose present and moist oral mucous membranes HEAD & SCALP: normocephalic and atraumatic NOSE: Normal external nose present EXTERNAL EAR: Yes external ears normal Neck/C-Spine: COMMON NORMALS: no JVD Chest: COMMONS NORMALS: normal inspection of the chest and normal palpation of entire chest wall Resp: COMMON NORMALS: normal respiratory effort, No retractions, No use of accessory muscles and clear to auscultation bilaterally AUSCULTATION: clear to auscultation bilaterally Cardio: COMMON NORMALS: no JVD, regular rate, regular rhythm, S1 normal heart sound present, S2 normal heart sound present, No gallops present (Cardio), No clicks present (Cardio), No murmurs present (Cardio) and No rub (Cardio) RATE: regular rate RHYTHM: regular rhythm HEART SOUNDS: S1 normal heart sound present and S2 normal heart sound present GI: COMMON NORMALS: Normal to inspection, nondistended, normoactive bowel sounds present, Soft to palpation, non-tender, No hepatosplenomegaly present and no masses PALPATION: Yes Soft to palpation and Yes No hepatosplenomegaly present Neuro: COMMON NORMALS: patient oriented x3 SENSORIUM/ORIENTATION: Yes alert Course Vital Signs: Vital signs: Vital Signs Temperature 98.1 F 08/08/24 21:02 Pulse Rate 90 08/09/24 00:47 Respiratory Rate 24 H 08/09/24 00:47 Blood Pressure 155/74 08/09/24 00:47 Pulse Oximetry 93 08/09/24 00:47 Oxygen Delivery Me thod Room Air 08/09/24 00:47 MDM - Arrhythmia/Palpitations Medical Decision Making Patient presents to the ER with chest pain and some hypotension. Patient thought hypotension may be due to her taking her [place] 2 times a day as well as vomiting. Patient received 1 L bolus normal saline 40 mEq potassium and 2 g of magnesium, patient blood pressure improved to 155/74. Patient is given 2 mg morphine for pain. Patient be discharged on potassium magnesium. Medical Records I reviewed the patient's medical records. Lab Data I reviewed the patient's lab results. 08/08/24 22:25 08/08/24 22: Laboratory Results WBC 13.34 10^3/uL (3.29-11.43) H 08/08/24 22: RBC 4.39 10^6/uL (3.85-5.65) 08/08/24 22: Hgb 12.90 g/dL (11.27-16.99) 08/08/24 22: Hct 37.5 % (36-47) 08/08/24 22: MCV 85.4 fl (85-98) 08/08/24 22: MCH 29.4 pg (27-33) 08/08/24 22: MCHC 34.4 g/dL (30-55) 08/08/24 22: RDW 13.6 % (12.1-15.1) 08/08/24 22: Plt Count 249 10^3/cmm (157-399) 08/08/24 22:25 MPV 9.3 fL (7.4-10.4) 08/08/24 22: Neut % (Auto) 79.6 % 08/08/24 22: Lymph % (Auto) 11.3 % 08/08/24: [place] % (Auto) 7.2 % 08/08/24 22: Eos % (Auto) 0.9 % 08/08/24: Baso % (Auto) 0.4 % 08/08/24: Neut # (Auto) 10.62 10^3/uL (1.8-7.7) H 08/08/24 22: Lymph # (Auto) 1.5 10^3/uL (0.8-4.8) 08/08/24 22:25 [place] # (Auto) 1.0 10^3/uL (0.2-0.9) H 08/08/24:25 Eos # (Auto) 0.1 10^3/uL (0.0-0.8) 08/08/24 22:25 Baso # (Auto) 0.1 10^3/uL (0.0-0.1) 08/08/24: Nucleated RBC % (auto) 0 % 08/08/24: Nucleated RBCs # 0.0 /100WBC 08/08/24 22:25 Sodium 141 mmol/L (136-145) 08/08/24 22:25 Potassium 3.1 mmol/L (3.5-5.1) L 08/08/24 22:25 Chloride 103 mmol/L (98-107) 08/08/24 22:25 Carbon Dioxide 25 mmol/L (22-29) 08/08/24 22:25 Anion Gap 16.1 (5-19) 08/08/24 22:25 BUN 21 mg/dL (8-23) 08/08/24 22:25 Creatinine 1.4 mg/dL (0.5-0.9) H 08/08/24 22:25 GFR Calculation Not Reportable 08/08/24 22:25 Glucose 151 mg/dL (65-115) H 08/08/24 22:25 Calculated Osmolality 298 mOsm/kg (285-295) H 08/08/24 22:25 Calcium 8.4 mg/dL (8.5-10.5) L 08/08/24 22:25 Magnesium 1.3 mg/dL (1.7-2.3) L 08/08/24 22:25 Total Bilirubin 0.3 mg/dL (0.15-1.2) 08/08/24 22:25 AST 8 U/L (0-32) 08/08/24 22:25 ALT < 5 U/L (0-33) 08/08/24 22:25 Alkaline Phosphatase 134 U/L (35-105) H 08/08/24 22:25 Troponin T Baseline 19 ng/L (0-10) H 08/08/24 22:25 Troponin T 120 Minute 18.94 ng/L (0-10) H 08/09/24 00:15 Delta Troponin T -0.06 ABS# (0-10) L 08/09/24 00:15 Total Protein 6.5 g/dL (6.6-8.7) L 08/08/24 22:25 Albumin 3.9 g/dL (3.5-5.2) 08/08/24 22:25 Globulin 2.6 g/dL (1.3-4.6) 08/08/24 22:25 Valproic Acid 2.8 ug/mL (50-100) L 08/08/24 22:25 All radiology interpretation(s) finalized by discharge Discharge Plan Discharge Patient Disposition: Home Clinical Impression: Hypomagnesemia, Acute hypokalemia Nausea & vomiting Qualifiers: Vomiting type: unspecified Qualified Code(s): R11.2 - Nausea with vomiting, unspecified Condition: Stable Prescriptions: New potassium chloride 20 mEq tablet extended release 20 meq PO BID Qty: 20 0RF magnesium oxide 400 mg magnesium capsule 400 mg PO BID Qty: 30 0RF ondansetron HCl 4 mg tablet 4 mg PO Q8H PRN (Reason: nausea and vomiting) Qty: 14 0RF No Action albuterol sulfate [Ventolin HFA] 90 mcg/actuation HFA aerosol inhaler 2 puff INHALATION Q6H PRN omeprazole 40 mg capsule,delayed release(DR/EC) 40 mg PO QDAY amlodipine 5 mg tablet 10 mg PO QDAY metoprolol succinate 100 mg tablet extended release 24 hr 100 mg PO DAILY metformin 500 mg tablet extended release 24hr 500 mg PO BID irbesartan 300 mg tablet 300 mg PO DAILY rosuvastatin 40 mg tablet 40 mg PO DAILY albuterol sulfate 2.5 mg /3 mL (0.083 %) solution for nebulization 2.5 mg inhalation Q6H divalproex 500 mg tablet extended release 24 hr 500 mg PO DAILY Breztri Aerosphere 160-9-4.8 mcg/actuation HFA aerosol inhaler 2 inh inhalation BID celecoxib 100 mg capsule 100 mg PO BID Qty: 20 0RF tramadol 50 mg tablet 50 mg PO Q8H PRN (Reason: pain) Qty: 14 0RF Discharge Orders: Discharge ED (Routine); Ordered 08/09/24 Ordered By: Cesar Bansal Referrals: Edvin Casiano MD [Primary Care Provider] - 1 week Patient Instructions: Hypomagnesemia (ED), Hypokalemia (ED) Activity Restrictions/Additional Instructions: Your evaluation ER showed your potassium and magnesium were low. You have been prescribed supplementation for both of these as well as Zofran for your nausea and vomiting. It is thought that your hydrocodone may be causing you to be sick at your stomach and have low blood pressure. Please try half doses until he can be seen by your family practice physician for further evaluation and treatment. Coding Level of Care Code ED Clinical Systems Educator for Kalin Collado
[2024-08-08 23:05] LABS: Troponin(5th) Baseline 19 ng/L (0-10)
[2024-08-08 23:07] LABS: Alanine Aminotransferase < 5 U/L (0-33); Albumin Level 3.9 g/dL (3.5-5.2); Alkaline Phosphatase 134 U/L (35-105); Anion Gap 16.1 (5-19); Aspartate Amino Transferase 8 U/L (0-32); Blood Urea Nitrogen 21 mg/dL (8-23); Calcium 8.4 mg/dL (8.5-10.5); Carbon Dioxide 25 mmol/L (22-29); Chloride 103 mmol/L (98-107); Creatinine Clr Calc Pharmacy 33.6146; Globulin 2.6 g/dL (1.3-4.6); Glucose 151 mg/dL (65-115); Magnesium 1.3 mg/dL (1.7-2.3); Osmolality Calculated 298 mOsm/kg (285-295); Potassium 3.1 mmol/L (3.5-5.1); Sodium 141 mmol/L (136-145); Total Bilirubin 0.3 mg/dL (0.15-1.2); Total Protein 6.5 g/dL (6.6-8.7)
[2024-08-08] MEDS: sodium chloride 0.9% 1,000 ML 999 ML IV (23:19)
[2024-08-08 23:20] LABS: Valproic Acid Level 2.8 ug/mL (50-100)
[2024-08-08] MEDS: magnesium sulfate premix 2 GM/50 ML PIGGYBACK IV (23:20)
[2024-08-08] MEDS: potassium chloride ER 20 mEq Tablet 40 MEQ PO (23:21)
[2024-08-08] MEDS: ondansetron 2 mg/ML SDV 2 mL 4 MG IVP (23:21)
[2024-08-08 23:32] VITALS: BP 154/79; PULSE 84; RESP 20; O2SAT 92
--- NOTE | 2024-08-08 23:56 | ECG_ITS ---
[employer] [facility] Test Date: 2024-08-09 Pat Name: Katerina Orozco Department: Room: Gender: Female Electronic Wirer: : 1950 Requested By: Cesar Bansal Order Number: [id number] So MD: ANGE LEMUS Measurements Intervals [place] Rate: 88 P: 63 VT: 185 QRS: 41 QRSD: 90 T: 56 QT: 381 QTc: 463 Interpretive Statements SINUS RHYTHM LOW QRS VOLTAGE IN PRECORDIAL LEADS [QRS DEFLECTION < 1.0 mV IN CHEST LEADS] Compared to ECG 05/11/2022 14:28:25 Low QRS voltage now present Electronically Signed On 08-09-2024 21:17:37 CDT by ANGE LEMUS [id number]
[2024-08-09 00:47] VITALS: BP 155/74; PULSE 90; RESP 24; O2SAT 93
[2024-08-09 00:49] LABS: Troponin 5 2HR 18.94 ng/L (0-10)
[2024-08-09 00:51] LABS: Troponin 5 2HR Delta -0.06 ABS# (0-10)
[2024-08-09 01:48] VITALS: RESP 20; O2SAT 93
[2024-08-09] MEDS: morphine 4 mg/mL SDV 1 mL 2 MG IVP (01:48)
[2024-08-09 01:50] VITALS: BP 131/85; PULSE 93; RESP 22; O2SAT 93
== END 2024-08-09 02:04 | disposition home or self-care (01) ==
PROVIDERS: Emergency Provider Emergency Medicine; PCP Family Medicine
DX: E83.42 Hypomagnesemia (principal); E87.6 Hypokalemia; R11.2 Nausea with vomiting, unspecified; I95.9 Hypotension, unspecified
CPT/HCPCS: 36415; 80053; 80164; 83735; 84484; 85025; 93005; 96365; 96375; 99284; J2270; J2405; J3475; J7030

== ENCOUNTER 2024-08-16 08:57 | Emergency (ER) | payer MEDICARE, MEDICAID, SELFPAY ==
--- NOTE | 2024-08-16 09:00 | ECG_ITS ---
[facility] Date[facility] 2024-08-16 Pat Name: Katerina Orozco Department: Room: Gender: Female Gear Repairer: : 1950 Requested By: Reagan Abdullahi Order Number: [id number] So MD: Merissa Currie M.D. Measurements Intervals [place] Rate: 86 P: 53 MN: 153 QRS: 16 QRSD: 84 T: 53 QT: 389 QTc: 466 Interpretive Statements SINUS RHYTHM WITH OCCASIONAL SUPRAVENTRICULAR PREMATURE COMPLEXES Compared to ECG 08/09/2024 00:46:10 No significant changes Electronically Signed On 08-16-2024 11:11:02 CDT by Merissa Currie M.D. [email or web address]
--- NOTE | 2024-08-16 09:01 | XRR_ITS ---
PROCEDURE INFORMATION: Exam: XR Chest Exam date and time: 08/16/2024 9:14 AM Age: 73 years old Clinical indication: Cough and dyspnea; Patient HX: RT arm pain; Additional info: Dyspnea/cough TECHNIQUE: Imaging protocol: Radiologic exam of the chest. Views: 1 view. COMPARISON: CR XR ribs LT mn 3V w CXR1V [id number] 12/23/2023 2:00 PM FINDINGS: Lungs: No acute infiltrate identified. Very small calcified granuloma at the right lung base laterally. Pleural spaces: No significant pleural fluid. No pneumothorax detected. Heart/Mediastinum: Cardiomegaly without pulmonary vascular congestion. Moderately large hiatal hernia. Several granulomatous elvis calcifications are seen in the mediastinum. Bones/joints: No obvious acute osseous abnormality on this portable exam. XR/XR chest 1V portable [id number] IMPRESSION: No acute cardiopulmonary abnormality detected on AP portable chest radiograph.
[2024-08-16 09:06] VITALS: BP 109/56; PULSE 92; RESP 20; TEMP 37; O2SAT 94; BMI 26.6
--- NOTE | 2024-08-16 09:23 | W.ED.EXTPRO ---
HPI - Extremity Problem General: Chief complaint: Extremity Problem,Nontraumatic Stated complaint: Right arm pain, b/p trouble Time Seen by Provider: 08/16/24 09:00 History of Present Illness: 73-year-old female presents emergency room at the direction of her primary care provider. She has no known history of autoimmune disease she does have a history of peripheral vascular disease has had lower extremity arterial interventions. She is also diabetic. She was previously on Celebrex at her heme positive stool (06/24) about a month ago with witnessed melanic stools so her Celebrex. Since then she began having increased joint pain. She has also developed migrating joint effusions. She was seen in her doctor's office had a sed rate of 46 and CRP of 75 negative CORI and RA evaluation. She was started on some steroids on August 12 had some mild improvement with her arthralgia but continues to still have joint discomfort. Today was seen was complaining of right arm pain and weakness. Was seen in the office and found to have very weak blood pressure up only 75 palp in the right arm. No palpable radial ulnar pulse. Left arm pulse was normal and blood pressure was near normal last night. She was directed to the emergency room for further evaluation. Associated symptoms: Deny chest pain, fever(s) or rash Related Data Home Medications Medication Instructions Recorded Confirmed albuterol sulfate 90 mcg/actuation 2 puff inhalation Q6H PRN 11/07/19 08/16/24 aerosol inhaler (Ventolin HFA) Shortness Of Breath Or Wheezing omeprazole 40 mg capsule,delayed 40 mg PO QDAY 11/07/19 08/16/24 release budesonide 160 mcg-glycopyr 9 2 inh inhalation BID 08/14/22 08/16/24 mcg-formot 4.8 mcg/actuation HFA inhaler (Breztri Aerosphere) irbesartan 300 mg tablet 300 mg PO DAILY 08/14/22 08/16/24 metoprolol succinate 100 mg 100 mg PO DAILY 08/14/22 08/16/24 tablet,extended release 24 hr rosuvastatin 40 mg tablet 40 mg PO DAILY 08/14/22 08/16/24 clopidogrel 75 mg tablet 75 mg PO DAILY 08/16/24 08/16/24 ferrous gluconate 324 mg (38 mg 324 mg PO Q48H 08/16/24 08/16/24 iron) tablet ipratropium 0.5 mg-albuterol 3 mg 3 ml inhalation QID 08/16/24 08/16/24 (2.5 mg base)/3 mL nebulization soln ondansetron HCl 8 mg tablet 8 mg PO TID PRN Nausea And Vomiting 08/16/24 08/16/24 oxycodone 5 mg capsule 5 mg PO Q8H 08/16/24 08/16/24 roflumilast 500 mcg tablet 500 mcg PO DAILY 08/16/24 08/16/24 Previous Rx's Medication Instructions Recorded ondansetron HCl 4 mg tablet 4 mg PO Q8H PRN nausea and 08/09/24 vomiting #14 tabs potassium chloride 20 mEq 20 meq PO BID #20 tabs 08/09/24 tablet,extended release oxycodone-acetaminophen 7.5 mg-325 1 tab PO Q8H PRN pain #14 tabs 08/16/24 mg tablet pantoprazole 40 mg tablet,delayed 40 mg PO BID 14 days #28 tabs 08/16/24 release (Protonix) prednisone 10 mg tablet See Taper PO DIRECTED #42 tabs 08/16/24 sucralfate 1 gram tablet (Carafate) 1 g PO TID 4 weeks #84 tabs 08/16/24 Allergies Allergy/AdvReac Type Severity Reaction Status Date / Time codeine Allergy itching Verified 08/14/22 14:14 lamotrigine [From Lamictal] Allergy itching Verified 08/14/22 14:14 NSAIDS (Non-Steroidal Allergy ADR-Gastrointestinal Verified 08/08/24 21:11 Anti-Inflamma Upset Review of Systems Const: Denies: fever(s) or chills Card: Denies: chest pain Resp: Denies: dyspnea GI: Denies: abdominal pain : Denies: dysuria, urinary frequency or urinary urgency Musc: Reports: extremity pain and joint pain (Migratory joint pain); Denies: neck pain or back pain Skin/Breast: Denies: rash PFSH ED PFSH: Medical History (Updated 08/17/24 @ 00:01 by KASSIDY Foy) CKD (chronic kidney disease) Acute kidney injury superimposed on CKD Hypertension COPD (chronic obstructive pulmonary disease) Carotid stenosis, bilateral Carpal tunnel syndrome left carpal tunnel release DOS: 09/19/[address] Fernando Type 2 diabetes mellitus Cubital tunnel syndrome cubital tunnel release DOS: 09/19/20 Surgical History (Updated 08/16/24 @ 17:05 by Anand Kat MD) History of cholecystectomy H/O cataract removal with insertion of prosthetic lens H/O left wrist surgery Family History Sister Cancer Brother Cancer Hypertension Father Hypertension Denies family history of Diabetes CAD (coronary artery disease) Stroke Social History Smoking and tobacco/nicotine status: former use of tobacco/nicotine Quit status (tobacco/nicotine): has quit using Year quit tobacco: 3 weeks ago Former quit date comment: smoked 1 pack per day x 50 years Alcohol intake: former Year of sobriety/quit date alcohol: 2000 Substance/Drug Use: never Lives independently: Yes Household members: none Housing: House Marital status: Number of children: 3 Pets and animals: Yes Pets & animals: dog(s) Physical Exam Const: GENERAL APPEARANCE: cooperative ORIENTATION/CONSCIOUSNESS: Yes awake, Yes oriented to person, Yes oriented to place and Yes oriented to time HENMT: COMMON NORMALS: normocephalic, atraumatic and hearing grossly normal bilaterally HEAD & SCALP: normocephalic and atraumatic Resp: COMMON NORMALS: normal respiratory effort, No retractions, No use of accessory muscles and clear to auscultation bilaterally AUSCULTATION: clear to auscultation bilaterally Cardio: COMMON NORMALS: regular rate, regular rhythm and No murmurs present (Cardio) RATE: regular rate RHYTHM: regular rhythm GI: COMMON NORMALS: Soft to palpation and No hepatosplenomegaly present AUSCULTATION: Yes normoactive bowel sounds PALPATION: Yes Soft to palpation, No Tenderness to palpation present (GI), No Guarding due to palpation present (GI) and Yes No hepatosplenomegaly present Extremity: COMMON NORMALS: normal to inspection, capillary refill normal, no clubbing, cyanosis or edema, no calf tenderness and no pedal edema Neuro: SENSORIUM/ORIENTATION: Yes oriented to person, Yes oriented to place and Yes oriented to time Skin: COMMON NORMALS: no rashes or lesions noted GENERAL SKIN EXAM: no rashes or lesions noted Course Vital Signs: Vital signs: Vital Signs Temperature 98.6 F 08/16/24 09:06 Pulse Rate 71 08/16/24 16:28 Respiratory Rate 20 H 08/16/24 09:06 Blood Pressure 136/77 08/16/24 16:28 Pulse Oximetry 93 08/16/24 16:28 Oxygen Delivery Me thod Room Air 08/16/24 09:06 MDM - Extremity (Nontraumatic) Medical Decision Making Patient has severe right arm pain even to light touch. No pulses in the left arm. Ultrasound and then CTA done on radiology recommendation they sided acute occlusion. The son with the patient is relating that they were getting blood pressures last evening on the patient however the patient had no left arm pain. Began to make arrangements for transfer vascular surgery and Linnea reviewed the CT contacted us. He is convinced that since patient has no pain by the appearance the calcification on the left subclavian artery that this has been present for several years. He feels the blood pressures were probably anomalous and not accurate. There is no good reconstitution of flow in the arm however there is no ischemi. We did give her 500 mg of IV Solu-Medrol. [place] with Dr. Kat about admitting patient for PMR she is received large dose steroids she wants to go home. We offered admission and she declined Dr. Dias recommended pain medication changes along steroid taper. I did contact Dr. Casiano and inform of the ER course. Follow-up with Dr. Casiano in the office.c pain. Radiology and vascular surgery agree that because we did not do delayed images were not seeing the reconstitution. Lab Data 08/16/24 09:35 08/16/24 09:35 Radiology Impressions Chest X-Ray 08/16/24 09:01 IMPRESSION: No acute cardiopulmonary abnormality detected on AP portable chest radiograph. Upper Extremity CTA 08/16/24 10:00 IMPRESSION: 1. 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 Reconstitution via a small caliber LEFT vertebral artery. 2. There is contrast enhancement within the LEFT axillary and brachial arteries to the mid to distal humerus. The brachial artery is very small caliber and poorly opacified. Just distal to the elbow no flow is identified in the ulnar/radial arteries. 3. LEFT vertebral artery is extremely small caliber but responsible for reversed filling of the LEFT subclavian artery. 4. Calcified LEFT cervical carotid artery with stent noted. Laboratory Results WBC 12.65 10^3/uL (3.29-11.43) H 08/16/24 09:35 RBC 3.86 10^6/uL (3.85-5.65) 08/16/24 09:35 Hgb 11.10 g/dL (11.27-16.99) L 08/16/24 09:35 Hct 36.2 % (36-47) 08/16/24 09:35 MCV 93.8 fl (85-98) 08/16/24 09:35 MCH 28.8 pg (27-33) 08/16/24 09:35 MCHC 30.7 g/dL (30-55) 08/16/24 09:35 RDW 13.5 % (12.1-15.1) 08/16/24 09:35 Plt Count 358 10^3/cmm (157-399) 08/16/24 09:35 MPV 9.4 fL (7.4-10.4) 08/16/24 09:35 Neut % (Auto) 79.6 % 08/16/24 09:35 Lymph % (Auto) 10.1 % 08/16/24 09:35 [place] % (Auto) 7.7 % 08/16/24 09:35 Eos % (Auto) 1.1 % 08/16/24 09:35 Baso % (Auto) 0.4 % 08/16/24 09:35 Neut # (Auto) 10.06 10^3/uL (1.8-7.7) H 08/16/24 09:35 Lymph # (Auto) 1.3 10^3/uL (0.8-4.8) 08/16/24 09:35 [place] # (Auto) 1.0 10^3/uL (0.2-0.9) H 08/16/24 09:35 Eos # (Auto) 0.1 10^3/uL (0.0-0.8) 08/16/24 09:35 Baso # (Auto) 0.1 10^3/uL (0.0-0.1) 08/16/24 09:35 Nucleated RBC % (auto) 0 % 08/16/24 09:35 Nucleated RBCs # 0.0 /100WBC 08/16/24 09:35 ESR 21 mm/hr (0-15) H 08/16/24 09:35 Sodium 144 mmol/L (136-145) 08/16/24 09:35 Potassium 3.9 mmol/L (3.5-5.1) 08/16/24 09:35 Chloride 104 mmol/L (98-107) 08/16/24 09:35 Carbon Dioxide 28 mmol/L (22-29) 08/16/24 09:35 Anion Gap 15.9 (5-19) 08/16/24 09:35 BUN 44 mg/dL (8-23) H 08/16/24 09:35 Creatinine 1.8 mg/dL (0.5-0.9) H 08/16/24 09:35 GFR Calculation Not Reportable 08/16/24 09:35 Glucose 235 mg/dL (65-115) H 08/16/24 09:35 Calculated Osmolality 317 mOsm/kg (285-295) H 08/16/24 09:35 Calcium 8.0 mg/dL (8.5-10.5) L 08/16/24 09:35 Total Bilirubin 0.2 mg/dL (0.15-1.2) 08/16/24 09:35 AST 7 U/L (0-32) 08/16/24 09:35 ALT 8 U/L (0-33) 08/16/24 09:35 Alkaline Phosphatase 123 U/L (35-105) H 08/16/24 09:35 C-Reactive Protein 22.3 mg/L (0.0-4.9) H 08/16/24 09:35 Total Protein 6.3 g/dL (6.6-8.7) L 08/16/24 09:35 Albumin 3.4 g/dL (3.5-5.2) L 08/16/24 09:35 Globulin 2.9 g/dL (1.3-4.6) 08/16/24 09:35 All radiology interpretation(s) finalized by discharge Discharge Plan Discharge Patient Disposition: Home Clinical Impression: PMR (polymyalgia rheumatica), LIZY (acute kidney injury) Condition: Stable Prescriptions: New prednisone 10 mg tablet See Taper PO DIRECTED Qty: 42 0RF Taper: predniSONE 60-10 60 mg Daily for 4 Days and 0 Hour 50 mg Daily for 4 Days and 0 Hour 40 mg Daily for 4 Days and 0 Hour 30 mg Daily for 4 Days and 0 Hour 20 mg Daily for 4 Days and 0 Hour 10 mg Daily for 4 Days and 0 Hour Rx Instructions: see taper instructions oxycodone-acetaminophen 7.5-325 mg tablet 1 tab PO Q8H PRN (Reason: pain) Qty: 14 0RF pantoprazole [Protonix] 40 mg tablet,delayed release (DR/EC) 40 mg PO BID 14 Days Qty: 28 0RF sucralfate [Carafate] 1 gram tablet 1 g PO TID 28 Days Qty: 84 0RF Continued albuterol sulfate [Ventolin HFA] 90 mcg/actuation HFA aerosol inhaler 2 puff INHALATION Q6H PRN (Reason: Shortness Of Breath Or Wheezing) omeprazole 40 mg capsule,delayed release(DR/EC) 40 mg PO QDAY metoprolol succinate 100 mg tablet extended release 24 hr 100 mg PO DAILY irbesartan 300 mg tablet 300 mg PO DAILY rosuvastatin 40 mg tablet 40 mg PO DAILY Breztri Aerosphere 160-9-4.8 mcg/actuation HFA aerosol inhaler 2 inh inhalation BID potassium chloride 20 mEq tablet extended release 20 meq PO BID Qty: 20 0RF ondansetron HCl 4 mg tablet 4 mg PO Q8H PRN (Reason: nausea and vomiting) Qty: 14 0RF ipratropium-albuterol 0.5 mg-3 mg(2.5 mg base)/3 mL solution for nebulization 3 ml INHALATION QID ondansetron HCl 8 mg tablet 8 mg PO TID PRN (Reason: Nausea And Vomiting) clopidogrel 75 mg tablet 75 mg PO DAILY oxycodone 5 mg capsule 5 mg PO Q8H ferrous gluconate 324 mg (38 mg iron) tablet 324 mg PO Q48H roflumilast 500 mcg tablet 500 mcg PO DAILY Discontinued hydrocodone-acetaminophen 7.5-325 mg tablet 1 tab PO Q8H Discharge Orders: Discharge ED (Routine); Ordered 08/16/24 Ordered By: Anand Kat Referrals: Edvin Casiano MD [Primary Care Provider] - Discharge Diet: Usual diet Discharge Activity: Increase activity as tolerated Patient Instructions: Opioid Safety, Pain Management Activity Restrictions/Additional Instructions: Thank you for choosing [facility] for your healthcare needs today. It is very important that you follow up as instructed or that you return to the Emergency Department should you have concerns or if your condition changes or worsens in any way. You were seen in the emergency room with right arm pain. Imaging done in the emergency room today shows occlusion of the large vessel feeding the left arm. However imaging indicates that this has been a chronic problem. Discussed this with the radiologist as well as the vascular surgeon at [facility] in [place] who also reviewed the films himself. He does not feel that this is new recommends that this can be further evaluated as an outpatient. We do suspect you have polymyalgia rheumatica based on your presenting symptoms. We gave you a very large dose of steroids in the emergency room and a steroid taper as well as further pain medications. It was noted that your kidney function had slightly elevated from the past. We recommend that you hold the irbesartan for the next 3 days follow-up with your primary care doctor in the office to have your kidney function rechecked and review you your progress on the steroid taper and pain medications you were given today. They can also refer you for vascular consultation regarding the occlusion of the vessel to your left arm. Also do not take omeprazole for next 2 weeks. Instead take Protonix twice daily and Carafate 4 times a day for next 4 weeks. Coding Level of Care Code ED Customer [employer] Supervisor for Kalin Collado
--- NOTE | 2024-08-16 09:37 | USCV_ITS ---
Katerina Orozco Age: 73 Gender: F : 1950 Exam Date: 08/16/2024 09:49 Ordering Phys: Reagan Silva DO Technologist: Exam Location: [facility] [place] Indication: NO PULSE LT ARM Risk Factors: Previous Vascular Surgery: Right BP: 103.00 / 70.00 Left BP: 20.00 / RIGHT LEFT PSV PSV (cm/s) (cm/s) Waveform Waveform Subclavian Distal 33.0 Monophasic Axillary 39.0 Monophasic Brachial Mid 30.0 Monophasic Radial at Wrist 29.0 Monophasic Ulnar at Wrist 23.0 Monophasic Radial/Brachial Index .2 Ulnar/Brachial Index .2 FINDINGS No arterial flow in the left subclavian artery. Dampened velocities in the left upper extremity arteries. Reversal of flow left vertebral artery, consistent with subclavian steal. CONCLUSIONS Occluded left subclavian artery. Dampened arterial flow left upper extremity, via reversed left vertebral artery flow. Dr. Betty Goodson DO (Electronically Signed) Final Date: 16 August 2024 11:32 S
[2024-08-16 09:49] LABS: Basophils # 0.1 10^3/uL (0.0-0.1); Basophils % 0.4 %; Eosinophils # 0.1 10^3/uL (0.0-0.8); Eosinophils % 1.1 %; Hematocrit 36.2 % (36-47); Lymphocytes # 1.3 10^3/uL (0.8-4.8); Lymphocytes % 10.1 %; Mean Corpuscular HGB Conc 30.7 g/dL (30-55); Mean Corpuscular Hemoglobin 28.8 pg (27-33); Mean Corpuscular Volume 93.8 fl (85-98); Mean Platelet Volume 9.4 fL (7.4-10.4); Monocytes % 7.7 %; Neutrophils # 10.06 10^3/uL (1.8-7.7); Neutrophils % 79.6 %; Nucleated Red Blood Cells % 0 %; Platelet Count 358 10^3/cmm (157-399); Red Blood Count 3.86 10^6/uL (3.85-5.65); Red Cell Distribution Width 13.5 % (12.1-15.1); White Blood Count 12.65 10^3/uL (3.29-11.43)
[2024-08-16 09:59] LABS: Erythrocyte Sedimentation Rate 21 mm/hr (0-15)
--- NOTE | 2024-08-16 10:00 | CT_ITS ---
WS: [id number] CT angiogram LEFT upper extremity. HISTORY: No pulses in the LEFT arm. COMPARISON: Arterial Doppler 08/16/2024. Contrast: Omnipaque 350; 100 mL. Atherosclerotic disease involving the aortic arch. Dense calcified plaque involving the origin and proximal LEFT subclavian artery. No enhancing lumen i s identified. The dense calcification extends over a length of at least 2.3 cm. Flow is noted in the distal LEFT subclavian artery which is due to retrograde flow of the LEFT vertebral artery. The LEFT vertebral artery is very small caliber. LEFT axillary and brachial artery are small caliber. Luminal narrowing and irregularity in the brachial artery becomes very small caliber towards the mid and dist al humerus. Very poor runoff of the distal brachial and into the radial and ulnar arteries. No identi fiable flow is identified below the elbow. Visualized LEFT lung is clear. Very large hiatal hernia. 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 Calcification at the origin of the LEFT carotid artery w ith at least 50% stenosis. Heavy calcification identified in the LEFT cervical carotid bifurcation wi th a stent also present. No renal obstruction. There are few LEFT renal masses which cannot be further characterized. Atherosc lerotic disease within the abdominal aorta. CT/[place] [id number] IMPRESSION: 1. 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 Reconstitutio n via a small caliber LEFT vertebral artery. 2. There is contrast enhancement within the LEFT axillary and brachial arteries to the mid to distal humerus. The brachial artery is very small caliber and [place] opacified. Just distal to the elbow no flow is identified in the ulnar/rad ial arteries. 3. LEFT vertebral artery is extremely small caliber but responsible for reverse d filling of the LEFT subclavian artery. 4. Calcified LEFT cervical carotid artery with stent noted.
[2024-08-16 10:05] LABS: Alanine Aminotransferase 8 U/L (0-33); Albumin Level 3.4 g/dL (3.5-5.2); Alkaline Phosphatase 123 U/L (35-105); Anion Gap 15.9 (5-19); Aspartate Amino Transferase 7 U/L (0-32); Blood Urea Nitrogen 44 mg/dL (8-23); C Reactive Protein 22.3 mg/L (0.0-4.9); Carbon Dioxide 28 mmol/L (22-29); Chloride 104 mmol/L (98-107); Creatinine Clr Calc Pharmacy 26.3803; Globulin 2.9 g/dL (1.3-4.6); Glucose 235 mg/dL (65-115); Osmolality Calculated 317 mOsm/kg (285-295); Potassium 3.9 mmol/L (3.5-5.1); Sodium 144 mmol/L (136-145); Total Bilirubin 0.2 mg/dL (0.15-1.2); Total Protein 6.3 g/dL (6.6-8.7)
--- NOTE | 2024-08-16 10:29 | PC.PHAR ---
Patients son states that doctor took Patient off of Amlodipine 5mg,Metformin 500mg,and Hydrocodone 7.5/325 on August 09.
[2024-08-16] MEDS: heparin 5,000 unit/mL INJ 1 mL IVP (11:05)
[2024-08-16] MEDS: pantoprazole 40 mg SDV 80 MG IVP (11:09)
[2024-08-16] MEDS: heparin drip 25,000 UNIT/500 ML PREMIX 20 UNIT IV (11:11)
[2024-08-16] MEDS: iohexol 350 mg/mL 500 mL Btl (per mL) IV (12:14)
[2024-08-16 13:14] VITALS: BP 154/76; PULSE 74; O2SAT 92
[2024-08-16] MEDS: morphine 4 mg/mL SDV 1 mL IVP (15:10)
[2024-08-16 15:14] VITALS: BP 129/64; PULSE 77; O2SAT 90
--- NOTE | 2024-08-16 15:18 | P.CONIM_ITS ---
Providers/Reason For Consult 2 Consulting Physician/Specialty*: Dr. Kat/internal medicine Reason for Consult*: Medical management Primary Care Provider: Edvin Casiano MD History of Present Illness History of Present Illness Katerina Orozco is a 73 year old female with past medical history of CVA, peripheral vascular disease, bilateral carotid artery stenosis, type 2 diabetes melitis, hypertension, CKD with baseline creatinine of 1.1-1.7. As per the history provided by patient and patient's son at bedside and review of chart, patient has been on Celebrex for a long time for joint pains which were discontinued very recently by her PCP on 06/24 because of heme positive stool after which her joint pain started getting worse. It seems she had developed migrating joint effusions with sedimentation rate of 46 and CRP of 75, negative CORI and RA factor on workup. As per the family patient also received steroid as an outpatient. First she was prescribed tramadol which she does not tolerate well after which it was switched to hydrocodone. Hydrocodone was later switched over to oxycodone with no improvement in pain. Yesterday she started having worsening in her pain in the right arm with some dizziness. Patient tried to check her blood pressure on the left arm which was not recordable but on the right arm the blood pressures are better. Today when she visited her PCPs office she was found to have a 75 mmHg systolic blood pressure in the left arm hence she was sent into the ER. In the ER she was complaining of pain. She underwent CTA of the arm which showed complete occlusion at the origin and proximal left subclavian artery, reconstitution via small caliber left vertebral artery. It also showed contrast-enhancement within the left axillary and brachial arteries to the mid and distal humerus. 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 Recommended patient to follow-up as an outpatient. Heparin drip was initially started in the ER but was later discontinued as per directions from vascular surgeon. Patient received 500 mg of IV Solu-Medrol and 4 mg of morphine. Examination patient is seen laying comfortably in bed complaining of some pain in the right arm with family at bedside. Patient herself denies any nausea, vomiting, headache, dizziness, difficulty in breathing. States she is thirsty and feels dehydrated. Review of Systems 2 General: Reports: 10 or more systems reviewed and unremarkable except in HPI and below Const: Denies: fever(s), chills, body aches, change in appetite, change in weight, malaise, night sweats, diaphoresis, change in sleep pattern, daytime sleepiness or snoring Eyes: Denies: change in vision, blurry vision, photophobia, eye discomfort or eye discharge ENMT: Denies: throat pain, enlarged tonsils, hoarseness, mouth pain, oral sores, dry mouth, tinnitus, nasal congestion or post nasal drip Card: Denies: chest pain, palpitations, irregular heart rhythm, edema, swelling of feet/ankles, lightheadedness, syncope, pre-syncope, dyspnea on exertion, orthopnea, leg pain with exertion or acrocyanosis Resp: Denies: dyspnea, productive cough, non-productive cough, wheezing, stridor, pain on inspiration, change in phlegm color, hemoptysis or chest congestion GI: Denies: abdominal pain, nausea, vomiting, hematemesis, coffee ground emesis, dysphagia, heartburn, diarrhea, constipation, bloating, GI cramping, change in bowel habits, pain on defecation, hematochezia or melena : Denies: flank pain, dysuria, urinary frequency, urinary urgency, urinary hesitancy, nocturia or hematuria Musc: Denies: neck pain, back pain, extremity pain, joint pain, joint swelling, joint redness, joint stiffness or limited range of motion Neuro: Denies: headache(s), numbness in extremities, weakness in extremities, sensory changes, lack of coordination, difficulty walking, frequent falls, dizziness, vertigo, confusion, Slurred speech present, difficulty communicating thoughts or seizure-like activity Psych: Denies: anxiety, depression, mood swings, panic attacks, hopelessness or irritability Endo: Denies: polyuria, polydipsia, tired all the time, cold intolerance, excessive sweating, flushing or heat intolerance Elroy/Lymph: Denies: easy bruising or easy bleeding All/Imm: Denies: tongue swelling, facial swelling or acute wheezing Medications/Allergies Home Medications Medication Instructions Recorded Confirmed Last Taken Type albuterol sulfate 90 mcg/actuation 2 puff inhalation Q6H PRN 11/07/19 08/16/24 08/15/24 History aerosol inhaler (Ventolin HFA) Shortness Of Breath Or Wheezing omeprazole 40 mg capsule,delayed 40 mg PO QDAY 11/07/19 08/16/24 08/15/24 History release budesonide 160 mcg-glycopyr 9 2 inh inhalation BID 08/14/22 08/16/24 08/15/24 History mcg-formot 4.8 mcg/actuation HFA inhaler (Breztri Aerosphere) irbesartan 300 mg tablet 300 mg PO DAILY 08/14/22 08/16/24 08/15/24 History metoprolol succinate 100 mg 100 mg PO DAILY 08/14/22 08/16/24 08/15/24 History tablet,extended release 24 hr rosuvastatin 40 mg tablet 40 mg PO DAILY 08/14/22 08/16/24 08/15/24 History ondansetron HCl 4 mg tablet 4 mg PO Q8H PRN nausea and 08/09/24 08/16/24 Unknown Rx vomiting #14 tabs potassium chloride 20 mEq 20 meq PO BID #20 tabs 08/09/24 08/16/24 08/15/24 Rx tablet,extended release clopidogrel 75 mg tablet 75 mg PO DAILY 08/16/24 08/16/24 08/15/24 History ferrous gluconate 324 mg (38 mg 324 mg PO Q48H 08/16/24 08/16/24 Unknown History iron) tablet ipratropium 0.5 mg-albuterol 3 mg 3 ml inhalation QID 08/16/24 08/16/24 Unknown History (2.5 mg base)/3 mL nebulization soln ondansetron HCl 8 mg tablet 8 mg PO TID PRN Nausea And Vomiting 08/16/24 08/16/24 Unknown History oxycodone 5 mg capsule 5 mg PO Q8H 08/16/24 08/16/24 08/16/24 04:00 History oxycodone-acetaminophen 7.5 mg-325 1 tab PO Q8H PRN pain #14 tabs 08/16/24 Unknown Rx mg tablet prednisone 10 mg tablet See Taper PO DIRECTED #42 tabs 08/16/24 Unknown Rx roflumilast 500 mcg tablet 500 mcg PO DAILY 08/16/24 08/16/24 08/15/24 History Allergies Allergy/AdvReac Type Severity Reaction Status Date / Time codeine Allergy itching Verified 08/14/22 14:14 lamotrigine [From Lamictal] Allergy itching Verified 08/14/22 14:14 NSAIDS (Non-Steroidal Allergy ADR-Gastrointestinal Verified 08/08/24 21:11 Anti-Inflamma Upset Current Medications Generic Name Dose Route Start Last Admin Trade Name Freq PRN Reason Stop Dose Admin Heparin Sodium/Sodium Chloride 25,000 unit in 500 mls @ 0 mls/hr 08/16/24 10:15 08/16/24 14:33 Heparin Drip IV 0 unit/kg/hr CONT MARIA R 0 mls/hr Titration Protocol Per Protocol PFSH Acute 2 PFSH: Medical History (Updated 08/16/24 @ 17:54 by Anand Kat MD) CKD (chronic kidney disease) Acute kidney injury superimposed on CKD Hypertension COPD (chronic obstructive pulmonary disease) Carotid stenosis, bilateral Carpal tunnel syndrome left carpal tunnel release DOS: 09/19/[address] Fernando Type 2 diabetes mellitus Cubital tunnel syndrome cubital tunnel release DOS: 09/19/20 Surgical History (Updated 08/16/24 @ 17:05 by Anand Kat MD) History of cholecystectomy H/O cataract removal with insertion of prosthetic lens H/O left wrist surgery Family History Sister Cancer Brother Cancer Hypertension Father Hypertension Denies family history of Diabetes CAD (coronary artery disease) Stroke Social History Smoking and tobacco/nicotine status: former use of tobacco/nicotine Quit status (tobacco/nicotine): has quit using Year quit tobacco: 3 weeks ago Former quit date comment: smoked 1 pack per day x 50 years Alcohol intake: former Year of sobriety/quit date alcohol: 2000 Substance/Drug Use: never Lives independently: Yes Household members: none Housing: House Marital status: Number of children: 3 Pets and animals: Yes Pets & animals: dog(s) Vitals/I&O/Wt Last Vital Signs Temp 98.6 F 08/16/24 09:06 Pulse 92 08/16/24 09:06 Resp 20 H 08/16/24 09:06 BP 109/56 08/16/24 09:06 Pulse Ox 94 08/16/24 09:06 O2 Del Method Room Air 08/16/24 09:06 08/16/24 08/16/24 08/16/24 06:59 14:59 22:59 Intake Total 67.333 / 67.333 Balance 67.333 / 67.333 Weight last 48 hrs Weight 70.307 kg Physical Exam 2 Narrative: General: No acute distress, AO x3 HEENT: PERRLA, pupils bilaterally equal and reactive Chest: Bilateral bronchial breath sounds all over lung zhou, mild rhonchi CVS: S1-S2 regular, no murmurs, no tachycardia, no gallops, no rubs Abdomen: Soft, nontender, no organomegaly, bowel sounds present Neuro: No focal deficits, no facial deformity, AO x3, power 5/5 in all limbs Extremity: Right wrist mild effusion, left arm warm to touch, appropriate capillary refill, pulses soft to palpate on the left arm, good to palpate on the right arm Data 08/16/24 09:35 08/16/24 09:35 Other Labs: Radiology Impressions Chest X-Ray 08/16/24 09:01 IMPRESSION: No acute cardiopulmonary abnormality detected on AP portable chest radiograph. Upper Extremity CTA 08/16/24 10:00 IMPRESSION: 1. 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 Reconstitution via a small caliber LEFT vertebral artery. 2. There is contrast enhancement within the LEFT axillary and brachial arteries to the mid to distal humerus. The brachial artery is very small caliber and poorly opacified. Just distal to the elbow no flow is identified in the ulnar/radial arteries. 3. LEFT vertebral artery is extremely small caliber but responsible for reversed filling of the LEFT subclavian artery. 4. Calcified LEFT cervical carotid artery with stent noted. Laboratory Results WBC 12.65 10^3/uL (3.29-11.43) H 08/16/24 09:35 RBC 3.86 10^6/uL (3.85-5.65) 08/16/24 09:35 Hgb 11.10 g/dL (11.27-16.99) L 08/16/24 09:35 Hct 36.2 % (36-47) 08/16/24 09:35 MCV 93.8 fl (85-98) 08/16/24 09:35 MCH 28.8 pg (27-33) 08/16/24 09:35 MCHC 30.7 g/dL (30-55) 08/16/24 09:35 RDW 13.5 % (12.1-15.1) 08/16/24 09:35 Plt Count 358 10^3/cmm (157-399) 08/16/24 09:35 MPV 9.4 fL (7.4-10.4) 08/16/24 09:35 Neut % (Auto) 79.6 % 08/16/24 09:35 Lymph % (Auto) 10.1 % 08/16/24 09:35 Wells % (Auto) 7.7 % 08/16/24 09:35 Eos % (Auto) 1.1 % 08/16/24 09:35 Baso % (Auto) 0.4 % 08/16/24 09:35 Neut # (Auto) 10.06 10^3/uL (1.8-7.7) H 08/16/24 09:35 Lymph # (Auto) 1.3 10^3/uL (0.8-4.8) 08/16/24 09:35 Wells # (Auto) 1.0 10^3/uL (0.2-0.9) H 08/16/24 09:35 Eos # (Auto) 0.1 10^3/uL (0.0-0.8) 08/16/24 09:35 Baso # (Auto) 0.1 10^3/uL (0.0-0.1) 08/16/24 09:35 Nucleated RBC % (auto) 0 % 08/16/24 09:35 Nucleated RBCs # 0.0 /100WBC 08/16/24 09:35 ESR 21 mm/hr (0-15) H 08/16/24 09:35 Sodium 144 mmol/L (136-145) 08/16/24 09:35 Potassium 3.9 mmol/L (3.5-5.1) 08/16/24 09:35 Chloride 104 mmol/L (98-107) 08/16/24 09:35 Carbon Dioxide 28 mmol/L (22-29) 08/16/24 09:35 Anion Gap 15.9 (5-19) 08/16/24 09:35 BUN 44 mg/dL (8-23) H 08/16/24 09:35 Creatinine 1.8 mg/dL (0.5-0.9) H 08/16/24 09:35 GFR Calculation Not Reportable 08/16/24 09:35 Glucose 235 mg/dL (65-115) H 08/16/24 09:35 Calculated Osmolality 317 mOsm/kg (285-295) H 08/16/24 09:35 Calcium 8.0 mg/dL (8.5-10.5) L 08/16/24 09:35 Total Bilirubin 0.2 mg/dL (0.15-1.2) 08/16/24 09:35 AST 7 U/L (0-32) 08/16/24 09:35 ALT 8 U/L (0-33) 08/16/24 09:35 Alkaline Phosphatase 123 U/L (35-105) H 08/16/24 09:35 C-Reactive Protein 22.3 mg/L (0.0-4.9) H 08/16/24 09:35 Total Protein 6.3 g/dL (6.6-8.7) L 08/16/24 09:35 Albumin 3.4 g/dL (3.5-5.2) L 08/16/24 09:35 Globulin 2.9 g/dL (1.3-4.6) 08/16/24 09:35 A&P Assessment and plan (1) Left subclavian artery occlusion: Further discussion between ER physician and the vascular surgeon at [place] it seems patient has chronic occlusion with calcification of the left axillary artery. Collateral was not seen as we did not have any bleeding delayed CT pictures. On examination patient's arm is warm to touch, good capillary reflex. As per vascular surgery patient needs to follow-up as an outpatient. Continue with home dose of Plavix, statin. Should follow-up as an outpatient with vascular surgery at the earliest. Patient would request the referral from his PCPs office. Discussed in detail with the patient and patient's son regarding danger sign with arm turning cold, numb or blue discoloration. (2) Acute kidney injury superimposed on CKD: Baseline creati 1.1-1.7. Currently 1.8. Most likely in setting of dehydration. Patient did get contrast study in the ER. Also takes ARB at home. Medical reconciliation done. Hold off on ARB for now. Blood pressures been soft normal. For now hold off on any antihypertensive. Discussed with patient about option of potential admission to the hospital for IV hydration and monitoring renal functions versus potentially increasing oral intake at home with rechecking renal functions and 1 week and patient and patient's son would want to try the option at home first. (3) Joint pain: Most likely in setting of PMR. Patient already received 500 mg of IV Solu-Medrol in the ER. Discussed in detail with patient and patient's son at bedside. Discussed the treatment for PMR with his steroid along with pain management. We discussed patient already received a very high dose of almost 8 mg/kg body weight today and will not need any more steroids for next 24 hours. Discussed options of high-dose steroid taper as an outpatient along with oral pain medications versus admission for steroids with pain medication. Discussed most likely on discharge even after steroids patient will have pain level of 6- 7. Son and patient verbalized understanding and would like to go home. Will plan to discharge patient from the ER on high-dose steroid taper within next 10 days along with oxycodone 10 mg every 8 hours as needed. Advised patient to alternate oxycodone and tramadol at home for better cascading effect of pain management. (4) PMR (polymyalgia rheumatica): (5) Carotid stenosis, bilateral: (6) Positive occult stool blood test: Discussed with patient about need for endoscopy and colonoscopy as she would possibly need a vascular surgery going forward. Discussed most likely she will need to have GI workup before vascular surgery. As per patient she has an appointment as an outpatient. Discussed potential admission for EGD and colonoscopy. Patient would like to go home. We should monitor hemoglobin weekly. Should have Protonix twice daily along with Carafate 4 times a day for now. Plan Plan: Patient is to be discharged home on steroid taper along with oxycodone 10 mg every 8 hours as needed alternating with tramadol. Advised to take at least 2 to 3 L of fluid daily. Hold off on ARB. Monitor blood pressures daily at home with goal blood pressure of less than 140/90 MAG. Should check blood pressure in the right arm. Take Protonix twice daily along with Carafate ACHS. Should follow-up with PCP at the earliest within next 1 week. Patient will require referral for vascular surgeon as an outpatient. Plan discussed in detail with patient, patient's son and ER physician. All in agreements. Consult Attestations 2 Medical Necessity Statement: Patient to be discharged from the ER on oral pain medications and steroid taper with Protonix and Carafate Diagnoses Left subclavian artery occlusion I70.8 Acute kidney injury superimposed on CKD N17.9; N18.9 Joint pain M25.50 PMR (polymyalgia rheumatica) M35.3 Carotid stenosis, bilateral I65.23 Positive occult stool blood test R19.5
[2024-08-16 16:28] VITALS: BP 136/77; PULSE 71; O2SAT 93
== END 2024-08-16 16:30 | disposition home or self-care (01) ==
PROVIDERS: Emergency Provider Family Medicine; PCP Family Medicine
DX: M35.3 Polymyalgia rheumatica (principal); N17.9 Acute kidney failure, unspecified; E11.22 Type 2 diabetes mellitus with diabetic chronic kidney disease; I12.9 Hypertensive chronic kidney disease with stage 1 through stage 4 chronic kidney disease, or unspecified chronic kidney disease; N18.9 Chronic kidney disease, unspecified; Z87.891 Personal history of nicotine dependence
CPT/HCPCS: 36415; 71045; 73206; 80053; 85025; 85651; 86140; 93005; 93931; 96365; 96366; 96375; 99285; J1644; J2270; J2470; J2919; J7050

== ENCOUNTER 2024-08-20 14:05 | Emergency (ER) | payer MEDICARE, MEDICAID, SELFPAY ==
[2024-08-20 14:14] VITALS: BP 182/73; PULSE 110; RESP 17; TEMP 36.8; O2SAT 97; BMI 26.1
--- NOTE | 2024-08-20 14:40 | XRR_ITS ---
PROCEDURE INFORMATION: Exam: XR Chest Exam date and time: 08/20/2024 3:08 PM Age: 73 years old Clinical indication: Cough and dyspnea; Additional info: Dyspnea/cough TECHNIQUE: Imaging protocol: Radiologic exam of the chest. Views: 1 view. COMPARISON: CR XR chest 1V portable [id number] 08/16/2024 9:14 AM FINDINGS: Lungs: Unremarkable. No consolidation. Pleural spaces: Unremarkable. No pleural effusion. No pneumothorax. Heart/Mediastinum: Stable cardiomegaly. Bones/joints: Stable. XR/XR chest 1V portable [id number] IMPRESSION: No acute findings.
--- NOTE | 2024-08-20 14:44 | ED_ITS ---
HPI - General Adult 2 General: Chief complaint: General Medical Stated complaint: bp issues Time Seen by Provider: 08/20/24 14:35 History of Present Illness: 73-year-old female who was seen a few da ys ago returns emergency room with over blood pressure when she had seen several days ago she had a polymyalgia rheumatica like presentation she also had a mild acute kidney injury. 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 Her right arm pain has improved with the prednisone. She denies chest pain no focal neurologic deficits noted. Associated symptoms: Deny chest pain, dyspnea or rash Related Data Home Medications Medication Instructions Recorded Confirmed albuterol sulfate 90 mcg/actuation 2 puff inhalation Q6H PRN 11/07/19 08/16/24 aerosol inhaler (Ventolin HFA) Shortness Of Breath Or Wheezing omeprazole 40 mg capsule,delayed 40 mg PO QDAY 11/07/19 08/16/24 release budesonide 160 mcg-glycopyr 9 2 inh inhalation BID 08/14/22 08/16/24 mcg-formot 4.8 mcg/actuation HFA inhaler (Breztri Aerosphere) irbesartan 300 mg tablet 300 mg PO DAILY 08/14/22 08/16/24 metoprolol succinate 100 mg 100 mg PO DAILY 08/14/22 08/16/24 tablet,extended release 24 hr rosuvastatin 40 mg tablet 40 mg PO DAILY 08/14/22 08/16/24 clopidogrel 75 mg tablet 75 mg PO DAILY 08/16/24 08/16/24 ferrous gluconate 324 mg (38 mg 324 mg PO Q48H 08/16/24 08/16/24 iron) tablet ipratropium 0.5 mg-albuterol 3 mg 3 ml inhalation QID 08/16/24 08/16/24 (2.5 mg base)/3 mL nebulization soln ondansetron HCl 8 mg tablet 8 mg PO TID PRN Nausea And Vomiting 08/16/24 08/16/24 oxycodone 5 mg capsule 5 mg PO Q8H 08/16/24 08/16/24 roflumilast 500 mcg tablet 500 mcg PO DAILY 08/16/24 08/16/24 Previous Rx's Medication Instructions Recorded ondansetron HCl 4 mg tablet 4 mg PO Q8H PRN nausea and 08/09/24 vomiting #14 tabs potassium chloride 20 mEq 20 meq PO BID #20 tabs 08/09/24 tablet,extended release oxycodone-acetaminophen 7.5 mg-325 1 tab PO Q8H PRN pain #14 tabs 08/16/24 mg tablet pantoprazole 40 mg tablet,delayed 40 mg PO BID 14 days #28 tabs 08/16/24 release (Protonix) prednisone 10 mg tablet See Taper PO DIRECTED #42 tabs 08/16/24 sucralfate 1 gram tablet (Carafate) 1 g PO TID 4 weeks #84 tabs 08/16/24 amlodipine 5 mg tablet 5 mg PO DAILY #30 tabs 08/20/24 Allergies Allergy/AdvReac Type Severity Reaction Status Date / Time codeine Allergy itching Verified 08/14/22 14:14 lamotrigine [From Lamictal] Allergy itching Verified 08/14/22 14:14 NSAIDS (Non-Steroidal Allergy ADR-Gastrointestinal Verified 08/08/24 21:11 Anti-Inflamma Upset Review of Systems 2 Const: Denies: fever(s) or chills Card: Denies: chest pain Resp: Denies: dyspnea GI: Denies: abdominal pain : Denies: dysuria, urinary frequency or urinary urgency Musc: Denies: neck pain or back pain Skin/Breast: Denies: rash PFSH ED 2 PFSH: Medical History CKD (chronic kidney disease) Acute kidney injury superimposed on CKD Hypertension COPD (chronic obstructive pulmonary disease) Carotid stenosis, bilateral Carpal tunnel syndrome left carpal tunnel release DOS: 09/19/[address] Fernando Type 2 diabetes mellitus Cubital tunnel syndrome cubital tunnel release DOS: 09/19/20 Surgical History History of cholecystectomy H/O cataract removal with insertion of prosthetic lens H/O left wrist surgery Family History Sister Cancer Brother Cancer Hypertension Father Hypertension Denies family history of Diabetes CAD (coronary artery disease) Stroke Social History Smoking and tobacco/nicotine status: former use of tobacco/nicotine Quit status (tobacco/nicotine): has quit using Year quit tobacco: 3 weeks ago Former quit date comment: smoked 1 pack per day x 50 years Alcohol intake: former Year of sobriety/quit date alcohol: 2000 Substance/Drug Use: never Lives independently: Yes Household members: none Housing: House Marital status: Number of children: 3 Pets and animals: Yes Pets & animals: dog(s) Physical Exam 2 Const: COMMON NORMALS: no acute distress GENERAL APPEARANCE: cooperative and comfortable ORIENTATION/CONSCIOUSNESS: Yes awake, Yes oriented to person, Yes oriented to place and Yes oriented to time HENMT: COMMON NORMALS: normocephalic, atraumatic and hearing grossly normal bilaterally HEAD & SCALP: normocephalic and atraumatic Resp: COMMON NORMALS: normal respiratory effort, No retractions, No use of accessory muscles and clear to auscultation bilaterally AUSCULTATION: clear to auscultation bilaterally Cardio: COMMON NORMALS: regular rate, regular rhythm and No murmurs present (Cardio) RATE: regular rate RHYTHM: regular rhythm GI: COMMON NORMALS: Soft to palpation and No hepatosplenomegaly present A USCULTATION: Yes normoactive bowel sounds PALPATION: Yes Soft to palpation, No Tenderness to palpation present (GI), No Guarding due to palpation present (GI) and Yes No hepatosplenomegaly present Extremity: COMMON NORMALS: normal to inspection, capillary refill normal, no clubbing, cyanosis or edema, no calf tenderness and no pedal edema Neuro: SENSORIUM/ORIENTATION: Yes oriented to person, Yes oriented to place and Yes oriented to time Skin: COMMON NORMALS: no rashes or lesions noted GENERAL SKIN EXAM: no rashes or lesions noted Course 2 Vital Signs: Vital signs: Vital Signs Temperature 98.2 F 08/20/24 14:14 Pulse Rate 78 08/20/24 17:12 Respiratory Rate 22 H 08/20/24 16:05 Blood Pressure 159/81 08/20/24 17:12 Pulse Oximetry 96 08/20/24 17:12 Oxygen Delivery Me thod Room Air 08/20/24 14:14 [facility] - General Adult Medical Decision Making Blood pressure improved with medications given. She her creatinine is still slightly elevated. Will have her continue to hold irbesartan and start her on amlodipine 5 mg daily follow-up with her primary care doctor next week. Her PMR is much improved she has no significant pain at this time Medical Records I reviewed the patient's medical records. Lab Data I reviewed the patient's lab results. 08/20/24 15:00 08/20/24 15:00 Radiology Impressions Chest X-Ray 08/20/24 14:40 IMPRESSION: No acute findings. Laboratory Results WBC 13.80 10^3/uL (3.29-11.43) H 08/20/24 15:00 RBC 4.46 10^6/uL (3.85-5.65) 08/20/24 15:00 Hgb 12.70 g/dL (11.27-16.99) 08/20/24 15:00 Hct 39.0 % (36-47) 08/20/24 15:00 MCV 87.4 fl (85-98) 08/20/24 15:00 MCH 28.5 pg (27-33) 08/20/24 15:00 MCHC 32.6 g/dL (30-55) 08/20/24 15:00 RDW 13.2 % (12.1-15.1) 08/20/24 15:00 Plt Count 524 10^3/cmm (157-399) H 08/20/24 15:00 MPV 9.4 fL (7.4-10.4) 08/20/24 15:00 Neut % (Auto) 82.5 % 08/20/24 15:00 Lymph % (Auto) 7.6 % 08/20/24 15:00 [place]row % (Auto) 5.3 % 08/20/24 15:00 Eos % (Auto) 0.0 % 08/20/24 15:00 Baso % (Auto) 0.4 % 08/20/24 15:00 Neut # (Auto) 11.39 10^3/uL (1.8-7.7) H 08/20/24 15:00 Lymph # (Auto) 1.1 10^3/uL (0.8-4.8) 08/20/24 15:00 [place]row # (Auto) 0.7 10^3/uL (0.2-0.9) 08/20/24 15:00 Eos # (Auto) 0.0 10^3/uL (0.0-0.8) 08/20/24 15:00 Baso # (Auto) 0.1 10^3/uL (0.0-0.1) 08/20/24 15:00 Nucleated RBC % (auto) 0 % 08/20/24 15:00 Nucleated RBCs # 0.0 /100WBC 08/20/24 15:00 Sodium 137 mmol/L (136-145) 08/20/24 15:00 Potassium 3.9 mmol/L (3.5-5.1) 08/20/24 15:00 Chloride 100 mmol/L (98-107) 08/20/24 15:00 Carbon Dioxide 22 mmol/L (22-29) 08/20/24 15:00 Anion Gap 18.9 (5-19) 08/20/24 15:00 BUN 35 mg/dL (8-23) H 08/20/24 15:00 Creatinine 1.5 mg/dL (0.5-0.9) H 08/20/24 15:00 GFR Calculation Not Reportable 08/20/24 15:00 Glucose 275 mg/dL (65-115) H 08/20/24 15:00 Calculated Osmolality 302 mOsm/kg (285-295) H 08/20/24 15:00 Calcium 8.5 mg/dL (8.5-10.5) 08/20/24 15:00 Magnesium 1.7 mg/dL (1.7-2.3) 08/20/24 15:00 Total Bilirubin 0.2 mg/dL (0.15-1.2) 08/20/24 15:00 AST 8 U/L (0-32) 08/20/24 15:00 ALT 9 U/L (0-33) 08/20/24 15:00 Alkaline Phosphatase 123 U/L (35-105) H 08/20/24 15:00 Total Protein 6.4 g/dL (6.6-8.7) L 08/20/24 15:00 Albumin 3.5 g/dL (3.5-5.2) 08/20/24 15:00 Globulin 2.9 g/dL (1.3-4.6) 08/20/24 15:00 Urine Color Yellow (Yellow) 08/20/24 15:33 Urine Appearance Clear (CLEAR) 08/20/24 15:33 Urine pH 5.5 (5-7) 08/20/24 15:33 Ur Specific [place] 1.030 (1.005-1.030) 08/20/24 15:33 Urine Protein 4+ (Negative) A 08/20/24 15:33 Urine Glucose (UA) Trace (Normal) H 08/20/24 15:33 Urine Ketones Trace (Negative) 08/20/24 15:33 Urine Blood Negative (Negative) 08/20/24 15: Urine Nitrate Negative (Negative) 08/20/24 15:33 Urine Bilirubin Negative (Negative) 08/20/24 15:33 Urine Urobilinogen 1.0 mg/dL (Negative) 08/20/24 15:33 Ur Leukocyte Esterase Negative (Negative) 08/20/24 15:33 Urine RBC 0-2 /hpf (0-2) 08/20/24 15:33 Urine WBC 5-10 /hpf (0-5) H 08/20/24 15:33 Ur Squamous Epith Cells 6-10 /hpf (0-5) 08/20/24 15:33 Amorphous Sediment Trace /hpf 08/20/24 15:33 Urine Bacteria 1+ /hpf (NONE) H 08/20/24 15:33 Hyaline Casts 15-25 /lpf H 08/20/24 15:33 Fine Granular Casts 0-4 /lpf H 08/20/24 15:33 Coarse Granular Casts 5-10 /lpf H 08/20/24 15:33 Urine Mucus 1+ /hpf 08/20/24 15:33 All radiology interpretation(s) finalized by discharge Discharge Plan Discharge Patient Disposition: Home Clinical Impression: Benign essential HTN Condition: Stable Prescriptions: New amlodipine 5 mg tablet 5 mg PO DAILY Qty: 30 0RF No Action albuterol sulfate [Ventolin HFA] 90 mcg/actuation HFA aerosol inhaler 2 puff INHALATION Q6H PRN (Reason: Shortness Of Breath Or Wheezing) omeprazole 40 mg capsule,delayed release(DR/EC) 40 mg PO QDAY metoprolol succinate 100 mg tablet extended release 24 hr 100 mg PO DAILY irbesartan 300 mg tablet 300 mg PO DAILY rosuvastatin 40 mg tablet 40 mg PO DAILY Breztri Aerosphere 160-9-4.8 mcg/actuation HFA aerosol inhaler 2 inh inhalation BID potassium chloride 20 mEq tablet extended release 20 meq PO BID Qty: 20 0RF ondansetron HCl 4 mg tablet 4 mg PO Q8H PRN (Reason: nausea and vomiting) Qty: 14 0RF ipratropium-albuterol 0.5 mg-3 mg(2.5 mg base)/3 mL solution for nebulization 3 ml INHALATION QID ondansetron HCl 8 mg tablet 8 mg PO TID PRN (Reason: Nausea And Vomiting) clopidogrel 75 mg tablet 75 mg PO DAILY oxycodone 5 mg capsule 5 mg PO Q8H ferrous gluconate 324 mg (38 mg iron) tablet 324 mg PO Q48H roflumilast 500 mcg tablet 500 mcg PO DAILY prednisone 10 mg tablet See Taper PO DIRECTED Qty: 42 0RF Taper: predniSONE 60-10 60 mg Daily for 4 Days and 0 Hour 50 mg Daily for 4 Days and 0 Hour 40 mg Daily for 4 Days and 0 Hour 30 mg Daily for 4 Days and 0 Hour 20 mg Daily for 4 Days and 0 Hour 10 mg Daily for 4 Days and 0 Hour Rx Instructions: see taper instructions oxycodone-acetaminophen 7.5-325 mg tablet 1 tab PO Q8H PRN (Reason: pain) Qty: 14 0RF pantoprazole [Protonix] 40 mg tablet,delayed release (DR/EC) 40 mg PO BID 14 Days Qty: 28 0RF sucralfate [Carafate] 1 gram tablet 1 g PO TID 28 Days Qty: 84 0RF Discharge Orders: Discharge ED (Routine); Ordered 08/20/24 Ordered By: Reagan Silva Referrals: Edvin Casiano MD [Primary Care Provider] - Discharge Diet: Usual diet Discharge Activity: Increase activity as tolerated Patient Instructions: Opioid Safety, Pain Management Activity Restrictions/Additional Instructions: Thank you for choosing [facility] for your healthcare needs today. It is very important that you follow up as instructed or that you return to the Emergency Department should you have concerns or if your condition changes or worsens in any way. You were seen in the emergency room with elevated blood pressure. It improved with medication given. Recommend that you start amlodipine 5 mg daily continue your metoprolol. Hold the irbesartan Velia. Follow-up with your primary care doctor in the next 2 to 3 days to reevaluate blood pressure. Coding Level of Care Code ED [employer] Programmer Analyst for Kalin Collado
--- NOTE | 2024-08-20 14:54 | ECG_ITS ---
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 Measurements Intervals [place] Rate: 75 P: 9 OK: 128 QRS: 0 QRSD: 85 T: 37 QT: 392 QTc: 441 Interpretive Statements SINUS RHYTHM Compared to ECG 08/16/2024 09:15:46 No significant changes Electronically Signed On 08-21-2024 14:07:19 AIR VALVE MECHANIC by Merissa Currie M.D. [email or web address]
[2024-08-20 15:00] VITALS: BP 217/103; PULSE 78; RESP 20; O2SAT 96
[2024-08-20 15:09] LABS: Basophils # 0.1 10^3/uL (0.0-0.1); Basophils % 0.4 %; Lymphocytes # 1.1 10^3/uL (0.8-4.8); Lymphocytes % 7.6 %; Mean Corpuscular HGB Conc 32.6 g/dL (30-55); Mean Corpuscular Hemoglobin 28.5 pg (27-33); Mean Corpuscular Volume 87.4 fl (85-98); Mean Platelet Volume 9.4 fL (7.4-10.4); Monocytes # 0.7 10^3/uL (0.2-0.9); Monocytes % 5.3 %; Neutrophils # 11.39 10^3/uL (1.8-7.7); Neutrophils % 82.5 %; Nucleated Red Blood Cells % 0 %; Platelet Count 524 10^3/cmm (157-399); Red Blood Count 4.46 10^6/uL (3.85-5.65); Red Cell Distribution Width 13.2 % (12.1-15.1)
[2024-08-20 15:22] LABS: Alanine Aminotransferase 9 U/L (0-33); Albumin Level 3.5 g/dL (3.5-5.2); Alkaline Phosphatase 123 U/L (35-105); Anion Gap 18.9 (5-19); Aspartate Amino Transferase 8 U/L (0-32); Blood Urea Nitrogen 35 mg/dL (8-23); Calcium 8.5 mg/dL (8.5-10.5); Carbon Dioxide 22 mmol/L (22-29); Chloride 100 mmol/L (98-107); Creatinine Clr Calc Pharmacy 31.3736; Globulin 2.9 g/dL (1.3-4.6); Glucose 275 mg/dL (65-115); Magnesium 1.7 mg/dL (1.7-2.3); Osmolality Calculated 302 mOsm/kg (285-295); Potassium 3.9 mmol/L (3.5-5.1); Sodium 137 mmol/L (136-145); Total Bilirubin 0.2 mg/dL (0.15-1.2); Total Protein 6.4 g/dL (6.6-8.7)
[2024-08-20 15:55] LABS: Bilirubin Urine Negative (Negative); Blood Urine Negative (Negative); Glucose Urine UA Trace (Normal); Ketones Urine Trace (Negative); Leukocyte Esterase Urine Negative (Negative); Nitrate Urine Negative (Negative); Protein Urine 4+ (Negative); Urine Appearance Clear (CLEAR); Urine Color Yellow (Yellow); pH Urine 5.5 (5-7)
[2024-08-20 16:00] LABS: Add Urine Microscopic? YES; RBC Urine 0-2 /hpf (0-2)
[2024-08-20 16:05] VITALS: BP 163/87; PULSE 65; RESP 22; O2SAT 96
[2024-08-20] MEDS: hyDRALAzine 20 mg/mL INJ 1 mL 10 MG IVP (16:05)
[2024-08-20 16:11] LABS: UA Slide Review UA Slide Review Perf
[2024-08-20 16:12] LABS: Bacteria Urine 1+ /hpf
[2024-08-20 16:13] LABS: Amorphous Sediment Urine TRACE /hpf; Fine Granular Casts Urine 0-4 /lpf; Hyaline Casts Urine 15-25 /lpf; Mucus Urine 1+ /hpf
[2024-08-20 17:12] VITALS: BP 159/81; PULSE 78; O2SAT 96
== END 2024-08-20 17:18 | disposition home or self-care (01) ==
PROVIDERS: Emergency Provider Family Medicine; PCP Family Medicine
DX: I12.9 Hypertensive chronic kidney disease with stage 1 through stage 4 chronic kidney disease, or unspecified chronic kidney disease (principal); Z87.891 Personal history of nicotine dependence; N18.9 Chronic kidney disease, unspecified; Z79.02 Long term (current) use of antithrombotics/antiplatelets; E11.22 Type 2 diabetes mellitus with diabetic chronic kidney disease; J44.9 Chronic obstructive pulmonary disease, unspecified
CPT/HCPCS: 71045; 80053; 81001; 83735; 85025; 93005; 96374; 99285; J0360

== ENCOUNTER 2024-08-22 03:01 | Emergency (ER) | payer MEDICARE, MEDICAID, SELFPAY ==
[2024-08-22] VITALS (7 sets, daily range): BP systolic 143–173; BP diastolic 71–118; PULSE 65–96; RESP 20–23; TEMP 36.6; O2SAT 94–97; BMI 26.1
--- NOTE | 2024-08-22 03:14 | XRR_ITS ---
PROCEDURE INFORMATION: Exam: XR Chest Exam date and time: 08/22/2024 3:23 AM Age: 73 years old Clinical indication: Pain; Shortness of breath; Chest pressure; Patient HX: C/O cp with SOB. History of thoracic aortic aneurysm TECHNIQUE: Imaging protocol: Radiologic exam of the chest. Views: 1 view. COMPARISON: CR (CHEST, ) 08/20/2024 3:08 PM FINDINGS: Lungs: Unremarkable. No consolidation. Pleural spaces: Unremarkable. No pleural effusion. No pneumothorax. Heart/Mediastinum: Hiatal hernia re-identified. Bones/joints: Unremarkable. XR/XR chest 1V portable [id number] IMPRESSION: No acute findings.
--- NOTE | 2024-08-22 03:14 | ECG_ITS ---
[facility] Test Date: 2024-08-22 Pat Name: Katerina Orozco Department: Room: Gender: Female Gelatin Powder Mixer: : 1950 Requested By: Todd Torres Order Number: [id number] So MD: Nishant Godoy M.D. Measurements Intervals [place] Rate: 61 P: 9 MS: 135 QRS: 13 QRSD: 78 T: 50 QT: 394 QTc: 399 Interpretive Statements SINUS RHYTHM Compared to ECG 08/20/2024 14:54:07 No significant changes Electronically Signed On 08-25-2024 21:20:04 NECK PINNER by Nishant Godoy M.D. [id number]
[2024-08-22 03:31] LABS: Hematocrit 38.4 % (36-47); Mean Corpuscular Volume 87.5 fl (85-98); Mean Platelet Volume 9.2 fL (7.4-10.4); Platelet Count 539 10^3/cmm (157-399); Red Blood Count 4.39 10^6/uL (3.85-5.65); Red Cell Distribution Width 13.3 % (12.1-15.1); White Blood Count 13.57 10^3/uL (3.29-11.43)
[2024-08-22] MEDS: hyDRALAzine 20 mg/mL INJ 1 mL IVP (03:36)
[2024-08-22 03:40] LABS: INR 0.93 (0.8-1.2)
[2024-08-22 03:41] LABS: Partial Thromboplastin Time 21.9 SECONDS (23.9-36.7)
[2024-08-22 03:48] LABS: Troponin(5th) Baseline 19 ng/L (0-10)
[2024-08-22] MEDS: LORazepam 2 mg/mL INJ 1 mL 0.5 MG IVP (03:55)
[2024-08-22 03:58] LABS: Alanine Aminotransferase 9 U/L (0-33); Albumin Level 3.5 g/dL (3.5-5.2); Alkaline Phosphatase 109 U/L (35-105); Anion Gap 15.8 (5-19); Aspartate Amino Transferase 8 U/L (0-32); Blood Urea Nitrogen 36 mg/dL (8-23); Calcium 8.2 mg/dL (8.5-10.5); Carbon Dioxide 22 mmol/L (22-29); Chloride 101 mmol/L (98-107); Creatine Phosphokinase 47 U/L (26-192); Globulin 2.6 g/dL (1.3-4.6); Glucose 238 mg/dL (65-115); NT Pro B Type Natriuretic Pept 668 pg/mL (0-125); Osmolality Calculated 296 mOsm/kg (285-295); Potassium 3.8 mmol/L (3.5-5.1); Sodium 135 mmol/L (136-145); Total Bilirubin 0.2 mg/dL (0.15-1.2); Total Protein 6.1 g/dL (6.6-8.7)
[2024-08-22 04:06] LABS: Absolute Segmented Neutrophil 11.4 10/cmm (1.6-7.1); Eosinophils 0 %; Lymphocytes 12 %; Monocytes Absolute 0.5 10^3/cmm (0.1-0.6); Platelet Estimate Increased (Normal); Segmented Neutrophils 84 %; Slide Review Slide Review Perform; Total Cells Counted 100 (0-100)
--- NOTE | 2024-08-22 04:45 | W.ED.CHESTPA ---
HPI - Chest Pain General: Chief Complaint: Chest Pain Stated Complaint: HB SOB Time Seen by Provider: 08/22/24 03:13 History of Present Illness: 73-year-old female with mild medical problems including recent diagnosis of polymyalgia rheumatica, peripheral vascular disease with occlusion of her left subclavian artery, thoracic aortic aneurysm, hypertension. She presents with chest pressure, shortness of breath that kept her from going to sleep this morning. She says she has been under a lot of stress due to her health conditions. She has also had a GI bleed, for which she is supposed to get an outpatient scope soon. She states she just does not feel well at this point. Her chest pressure is gone, and shortness of breath is improved on my examination and interview. She is quite concerned about her hypertension, due to the aneurysm. She has been hypertensive since she was here in the ER last. This is her fourth visit in the last several days. Related Data Home Medications Medication Instructions Recorded Confirmed albuterol sulfate 90 mcg/actuation 2 puff inhalation Q6H PRN 11/07/19 08/16/24 aerosol inhaler (Ventolin HFA) Shortness Of Breath Or Wheezing omeprazole 40 mg capsule,delayed 40 mg PO QDAY 11/07/19 08/16/24 release budesonide 160 mcg-glycopyr 9 2 inh inhalation BID 08/14/22 08/16/24 mcg-formot 4.8 mcg/actuation HFA inhaler (Breztri Aerosphere) irbesartan 300 mg tablet 300 mg PO DAILY 08/14/22 08/16/24 metoprolol succinate 100 mg 100 mg PO DAILY 08/14/22 08/16/24 tablet,extended release 24 hr rosuvastatin 40 mg tablet 40 mg PO DAILY 08/14/22 08/16/24 clopidogrel 75 mg tablet 75 mg PO DAILY 08/16/24 08/16/24 ferrous gluconate 324 mg (38 mg 324 mg PO Q48H 08/16/24 08/16/24 iron) tablet ipratropium 0.5 mg-albuterol 3 mg 3 ml inhalation QID 08/16/24 08/16/24 (2.5 mg base)/3 mL nebulization soln ondansetron HCl 8 mg tablet 8 mg PO TID PRN Nausea And Vomiting 08/16/24 08/16/24 oxycodone 5 mg capsule 5 mg PO Q8H 08/16/24 08/16/24 roflumilast 500 mcg tablet 500 mcg PO DAILY 08/16/24 08/16/24 Previous Rx's Medication Instructions Recorded ondansetron HCl 4 mg tablet 4 mg PO Q8H PRN nausea and 08/09/24 vomiting #14 tabs potassium chloride 20 mEq 20 meq PO BID #20 tabs 08/09/24 tablet,extended release oxycodone-acetaminophen 7.5 mg-325 1 tab PO Q8H PRN pain #14 tabs 08/16/24 mg tablet pantoprazole 40 mg tablet,delayed 40 mg PO BID 14 days #28 tabs 08/16/24 release (Protonix) prednisone 10 mg tablet See Taper PO DIRECTED #42 tabs 08/16/24 sucralfate 1 gram tablet (Carafate) 1 g PO TID 4 weeks #84 tabs 08/16/24 amlodipine 5 mg tablet 5 mg PO DAILY #30 tabs 08/20/24 lorazepam 1 mg tablet 0.5 mg (1/2 x 1 mg) PO BID PRN 08/22/24 anxiety #14 tabs Allergies Allergy/AdvReac Type Severity Reaction Status Date / Time codeine Allergy itching Verified 08/14/22 14:14 lamotrigine [From Lamictal] Allergy itching Verified 08/14/22 14:14 NSAIDS (Non-Steroidal Allergy ADR-Gastrointestinal Verified 08/08/24 21:11 Anti-Inflamma Upset PFSH ED PFSH: Medical History CKD (chronic kidney disease) Acute kidney injury superimposed on CKD Hypertension COPD (chronic obstructive pulmonary disease) Carotid stenosis, bilateral Carpal tunnel syndrome left carpal tunnel release DOS: 09/19/[address] Fernando Type 2 diabetes mellitus Cubital tunnel syndrome cubital tunnel release DOS: 09/19/20 Surgical History History of cholecystectomy H/O cataract removal with insertion of prosthetic lens H/O left wrist surgery Family History Sister Cancer Brother Cancer Hypertension Father Hypertension Denies family history of Diabetes CAD (coronary artery disease) Stroke Social History Smoking and tobacco/nicotine status: former use of tobacco/nicotine Quit status (tobacco/nicotine): has quit using Year quit tobacco: 3 weeks ago Former quit date comment: smoked 1 pack per day x 50 years Alcohol intake: former Year of sobriety/quit date alcohol: 2000 Substance/Drug Use: never Lives independently: Yes Household members: none Housing: House Marital status: Number of children: 3 Pets and animals: Yes Pets & animals: dog(s) Physical Exam Const: COMMON NORMALS: no acute distress GENERAL APPEARANCE: cooperative, anxious and frail appearing (mildly) HENMT: COMMON NORMALS: normocephalic, atraumatic and Normal external nose present HEAD & SCALP: normocephalic and atraumatic FACE & SINUS: normal facial exam and face symmetric NOSE: Normal external nose present Eye: COMMON NORMALS: Equal, round and reactive pupils present and EOMs intact bilaterally PUPIL: Yes Equal, round and reactive pupils present Neck/C-Spine: GENERAL: Yes trachea midline Chest: CHEST: Yes Symmetrical chest wall rise Resp: COMMON NORMALS: normal respiratory effort, No retractions, No use of accessory muscles and clear to auscultation bilaterally AUSCULTATION: clear to auscultation bilaterally Cardio: COMMON NORMALS: regular rate and regular rhythm RATE: regular rate RHYTHM: regular rhythm GI: COMMON NORMALS: Normal to inspection, nondistended, normoactive bowel sounds present Extremity: COMMON NORMALS: no pedal edema Neuro: DENISE COMA SCALE: document GCS findings Denise coma scale eye opening: Spontaneous [place] coma scale verbal response: Orientated Ferris coma scale motor response: Obey commands Denise coma scale total score: 15 SENSORY EXAM: Yes extremities (intact) Psych: COMMON NORMALS: speech normal SPEECH: Yes normal speech Skin: COMMON NORMALS: no rashes or lesions noted GENERAL SKIN EXAM: no rashes or lesions noted Course Vital Signs: Vital signs: Vital Signs Temperature 97.8 F 08/22/24 03:12 Pulse Rate 90 08/22/24 05:16 Respiratory Rate 23 H 08/22/24 04:01 Blood Pressure 152/118 08/22/24 05:16 Pulse Oximetry 94 08/22/24 05:16 Oxygen Delivery Me thod Room Air 08/22/24 05:16 [facility] - Chest Pain Medical Decision Making Patient was quite hypertensive on arrival here. She is anxious as well. Despite this, her symptoms have improved on their own. Blood pressure was initially in the 180s systolic. She had taken 5 mg of amlodipine prior to coming here. Hydralazine bolus was given IV, current blood pressure is 135/67 with a heart rate of 66, saturations of 95% respirations of 20. Hemoglobin is 12.3. White blood cell count is 13.5. The patient has been on steroids, likely raising her white count. Creatinine is 1.2 with a BUN of 36. Electrolytes are not remarkable. Chest x-ray is nonacute. Her first troponin is 19 which is what it was last month on initial testing. BNP is 668. Awaiting a second troponin for likely discharge. Lab Data 08/22/24 03:22 08/22/24 03:22 Radiology Impressions Chest X-Ray 08/22/24 03:14 IMPRESSION: No acute findings. Laboratory Results WBC 13.57 10^3/uL (3.29-11.43) H 08/22/24 03:22 RBC 4.39 10^6/uL (3.85-5.65) 08/22/24 03:22 Hgb 12.30 g/dL (11.27-16.99) 08/22/24 03:22 Hct 38.4 % (36-47) 08/22/24 03:22 MCV 87.5 fl (85-98) 08/22/24 03:22 MCH 28.0 pg (27-33) 08/22/24 03:22 MCHC 32.0 g/dL (30-55) 08/22/24 03:22 RDW 13.3 % (12.1-15.1) 08/22/24 03:22 Plt Count 539 10^3/cmm (157-399) H 08/22/24 03:22 MPV 9.2 fL (7.4-10.4) 08/22/24 03:22 Lymph % (Auto) Not Reportable 08/22/24 03:22 [place] % (Auto) Not Reportable 08/22/24 03:22 Lymph # (Auto) Not Reportable 08/22/24 03:22 [place] # (Auto) Not Reportable 08/22/24 03:22 Total Counted 100 (0-100) 08/22/24 03:22 Atypical Lymphs % Not Reportable 08/22/24 03:22 Segmented Neutrophils 84 % 08/22/24 03:22 Band Neutrophils Not Reportable 08/22/24 03:22 Lymphocytes (Manual) 12 % 08/22/24 03:22 Monocytes (Manual) 4.0 % 08/22/24 03:22 Absolute Monocytes 0.5 10^3/cmm (0.1-0.6) 08/22/24 03:22 Eosinophils (Manual) 0 % 08/22/24 03:22 Absolute Eosinophils 0.0 10^3/cmm (0.0-0.7) 08/22/24 03:22 Basophils (Manual) 0.0 % 08/22/24 03:22 Absolute Basophils 0.0 10^3/cmm (0.0-0.2) 08/22/24 03:22 Platelet Estimate Increased (Normal) H 08/22/24 03:22 PT 12.70 SECONDS (12.1-14.9) 08/22/24 03:22 INR 0.93 (0.8-1.2) 08/22/24 03:22 APTT 21.9 SECONDS (23.9-36.7) L 08/22/24 03:22 Sodium 135 mmol/L (136-145) L 08/22/24 03:22 Potassium 3.8 mmol/L (3.5-5.1) 08/22/24 03:22 Chloride 101 mmol/L (98-107) 08/22/24 03:22 Carbon Dioxide 22 mmol/L (22-29) 08/22/24 03:22 Anion Gap 15.8 (5-19) 08/22/24 03:22 BUN 36 mg/dL (8-23) H 08/22/24 03:22 Creatinine 1.2 mg/dL (0.5-0.9) H 08/22/24 03:22 GFR Calculation Not Reportable 08/22/24 03:22 Glucose 238 mg/dL (65-115) H 08/22/24 03:22 Calculated Osmolality 296 mOsm/kg (285-295) H 08/22/24 03:22 Calcium 8.2 mg/dL (8.5-10.5) L 08/22/24 03:22 Total Bilirubin 0.2 mg/dL (0.15-1.2) 08/22/24 03:22 AST 8 U/L (0-32) 08/22/24 03:22 ALT 9 U/L (0-33) 08/22/24 03:22 Alkaline Phosphatase 109 U/L (35-105) H 08/22/24 03:22 Creatine Kinase 47 U/L (26-192) 08/22/24 03:22 Troponin T Baseline 19 ng/L (0-10) H 08/22/24 03:22 Troponin T 120 Minute 17.79 ng/L (0-10) H 08/22/24 05:22 Delta Troponin T -1.21 ABS# (0-10) L 08/22/24 05:22 NT-Pro-B Natriuret Pep 668 pg/mL (0-125) H 08/22/24 03:22 Total Protein 6.1 g/dL (6.6-8.7) L 08/22/24 03:22 Albumin 3.5 g/dL (3.5-5.2) 08/22/24 03:22 Globulin 2.6 g/dL (1.3-4.6) 08/22/24 03:22 All radiology interpretation(s) finalized by discharge Discharge Plan Discharge Patient Disposition: Home Clinical Impression: Chest pain, Hypertension, Anxiety, generalized Condition: Stable Prescriptions: New lorazepam 1 mg tablet 0.5 mg PO BID PRN (Reason: anxiety) Qty: 14 0RF No Action albuterol sulfate [Ventolin HFA] 90 mcg/actuation HFA aerosol inhaler 2 puff INHALATION Q6H PRN (Reason: Shortness Of Breath Or Wheezing) omeprazole 40 mg capsule,delayed release(DR/EC) 40 mg PO QDAY metoprolol succinate 100 mg tablet extended release 24 hr 100 mg PO DAILY irbesartan 300 mg tablet 300 mg PO DAILY rosuvastatin 40 mg tablet 40 mg PO DAILY Breztri Aerosphere 160-9-4.8 mcg/actuation HFA aerosol inhaler 2 inh inhalation BID potassium chloride 20 mEq tablet extended release 20 meq PO BID Qty: 20 0RF ondansetron HCl 4 mg tablet 4 mg PO Q8H PRN (Reason: nausea and vomiting) Qty: 14 0RF amlodipine 5 mg tablet 5 mg PO DAILY Qty: 30 0RF ipratropium-albuterol 0.5 mg-3 mg(2.5 mg base)/3 mL solution for nebulization 3 ml INHALATION QID ondansetron HCl 8 mg tablet 8 mg PO TID PRN (Reason: Nausea And Vomiting) clopidogrel 75 mg tablet 75 mg PO DAILY oxycodone 5 mg capsule 5 mg PO Q8H ferrous gluconate 324 mg (38 mg iron) tablet 324 mg PO Q48H roflumilast 500 mcg tablet 500 mcg PO DAILY prednisone 10 mg tablet See Taper PO DIRECTED Qty: 42 0RF Taper: predniSONE 60-10 60 mg Daily for 4 Days and 0 Hour 50 mg Daily for 4 Days and 0 Hour 40 mg Daily for 4 Days and 0 Hour 30 mg Daily for 4 Days and 0 Hour 20 mg Daily for 4 Days and 0 Hour 10 mg Daily for 4 Days and 0 Hour Rx Instructions: see taper instructions oxycodone-acetaminophen 7.5-325 mg tablet 1 tab PO Q8H PRN (Reason: pain) Qty: 14 0RF pantoprazole [Protonix] 40 mg tablet,delayed release (DR/EC) 40 mg PO BID 14 Days Qty: 28 0RF sucralfate [Carafate] 1 gram tablet 1 g PO TID 28 Days Qty: 84 0RF Discharge Orders: Discharge ED (Routine); Ordered 08/22/24 Ordered By: Todd Arsmtrong Referrals: Edvin Casiano MD [Primary Care Provider] - 1-3 days Patient Instructions: Chest Pain (ED), Hypertension (ED), Anxiety (ED), Opioid Safety, Pain Management Activity Restrictions/Additional Instructions: Given your home blood pressure readings, you may increase your amlodipine back to 10 mg daily. If despite this your blood pressure remains above 150 systolic, you may take a half of a dose of your irbesartan daily as well. If you are feeling anxious, with high blood pressure, you may take one of the medications prescribed. Continue to log your blood pressures twice daily. Call your doctor for follow-up appointment. Return for worsening pain despite treatment, worsening shortness of breath, other concerning symptoms. Coding Level of Care Code ED Wholesale Representative for Kalin Collado
--- NOTE | 2024-08-22 05:14 | ECG_ITS ---
[facility] Test Date: 2024-08-22 Pat Name: Katerina Orozco Department: Room: Gender: Female Bean Weigher: : 1950 Requested By: Todd Torres Order Number: [id number] So MD: ANGE LEMUS Measurements Intervals [place] Rate: 70 P: 33 IA: 131 QRS: 48 QRSD: 85 T: 61 QT: 414 QTc: 450 Interpretive Statements SINUS RHYTHM Compared to ECG 08/22/2024 03:10:40 No significant changes Electronically Signed On 08-26-2024 00:42:51 VOCATIONAL TRAINING TEACHER by ANGE LEMUS [email or web address]
[2024-08-22] MEDS: amlodipine 5 mg Tablet PO (05:34)
[2024-08-22] MEDS: hyDRALAzine 20 mg/mL INJ 1 mL 10 MG IVP (05:36)
[2024-08-22 05:48] LABS: Troponin 5 2HR 17.79 ng/L (0-10)
[2024-08-22 05:52] LABS: Troponin 5 2HR Delta -1.21 ABS# (0-10)
== END 2024-08-22 06:27 | disposition home or self-care (01) ==
PROVIDERS: Emergency Provider Emergency Medicine; PCP Family Medicine
DX: R07.9 Chest pain, unspecified (principal); F41.9 Anxiety disorder, unspecified; E11.22 Type 2 diabetes mellitus with diabetic chronic kidney disease; I12.9 Hypertensive chronic kidney disease with stage 1 through stage 4 chronic kidney disease, or unspecified chronic kidney disease; N18.9 Chronic kidney disease, unspecified; J44.9 Chronic obstructive pulmonary disease, unspecified; Z87.891 Personal history of nicotine dependence
CPT/HCPCS: 71045; 80053; 82550; 83880; 84484; 85007; 85025; 85610; 85730; 93005; 96374; 96375; 96376; 99285; J0360; J2060

== ENCOUNTER 2024-08-31 16:38 | Emergency (ER) | payer MEDICARE, MEDICAID, SELFPAY ==
--- NOTE | 2024-08-31 16:41 | ECG_ITS ---
[facility] Test Date: 2024-08-31 Pat Name: Katerina Orozco Department: Room: Gender: Female Clay Temperer: : 1950 Requested By: Julisa Melgoza Order Number: [id number] So MD: Nishant Godoy M.D. Measurements Intervals [place] Rate: 89 P: 27 NV: 122 QRS: 32 QRSD: 85 T: 55 QT: 352 QTc: 429 Interpretive Statements SINUS RHYTHM Compared to ECG 08/22/2024 05:27:18 No significant changes Electronically Signed On 09-01-2024 21:16:44 B2B APPOINTMENT SETTER by Nishant Godoy M.D. [id number]
[2024-08-31 16:44] VITALS: BP 209/93; PULSE 99; RESP 18; TEMP 36.8; O2SAT 96; BMI 26.1
[2024-08-31 17:38] LABS: Hematocrit 38.9 % (36-47); Mean Corpuscular HGB Conc 31.1 g/dL (30-55); Mean Corpuscular Hemoglobin 27.9 pg (27-33); Mean Corpuscular Volume 89.8 fl (85-98); Mean Platelet Volume 9.9 fL (7.4-10.4); Platelet Count 253 10^3/cmm (157-399); Red Blood Count 4.33 10^6/uL (3.85-5.65)
[2024-08-31 17:48] LABS: Slide Review Slide Review Perform
[2024-08-31 17:50] LABS: Absolute Neutrophil 17.4 10^3/cmm (1.4-6.5); Band Neutrophils Absolute 1.4 10^3/cmm (0.0-1.2); Eosinophils 0 %; Lymphocytes 5 %; Monocytes Absolute 0.4 10^3/cmm (0.1-0.6); Platelet Estimate Normal (Normal); Segmented Neutrophils 82 %; Total Cells Counted 100 (0-100)
[2024-08-31 17:51] LABS: Alanine Aminotransferase 22 U/L (0-33); Albumin Level 3.7 g/dL (3.5-5.2); Alkaline Phosphatase 153 U/L (35-105); Anion Gap 16.9 (5-19); Aspartate Amino Transferase 13 U/L (0-32); Blood Urea Nitrogen 27 mg/dL (8-23); Calcium 8.3 mg/dL (8.5-10.5); Carbon Dioxide 25 mmol/L (22-29); Chloride 101 mmol/L (98-107); Creatinine Clr Calc Pharmacy 47.0604; Globulin 2.1 g/dL (1.3-4.6); Glucose 260 mg/dL (65-115); Osmolality Calculated 302 mOsm/kg (285-295); Potassium 3.9 mmol/L (3.5-5.1); Sodium 139 mmol/L (136-145); Total Bilirubin 0.4 mg/dL (0.15-1.2); Total Protein 5.8 g/dL (6.6-8.7)
== END 2024-08-31 17:37 | disposition left against medical advice (07) ==
PROVIDERS: Emergency Medicine; Emergency Provider Family Medicine; PCP Family Medicine
DX: Z53.21 Procedure and treatment not carried out due to patient leaving prior to being seen by health care provider (principal)
CPT/HCPCS: 36415; 80053; 85007; 85025; 93005

== ENCOUNTER 2024-09-11 12:26 | Emergency (ER) | payer MEDICARE, MEDICAID, SELFPAY ==
[2024-09-11 12:53] VITALS: BP 111/78; PULSE 97; RESP 18; TEMP 36.9; O2SAT 94; BMI 27.4
--- NOTE | 2024-09-11 13:23 | W.ED.GENADLT ---
HPI - General Adult General: Chief complaint: General Medical Stated complaint: yeast infection under breast and stomach Time Seen by Provider: 09/11/24 13:01 Source: patient Mode of arrival: wheelchair Limitations: no limitations History of Present Illness: Patient presents emergency department today accompanied by family for evaluation treatment of concerns for worsening yeast infection and newly found pressure ulcer. Patient states that she just darted getting home health in last week, they came in to evaluate her. She had developed a yeast infection underneath her pannus and underneath her right breast. She states that she was given medication for the yeast infection which she has been putting on but, they told her to also apply Desitin and since then, has been getting a lot of moisture buildup. States they had put some gauze in the folded areas but, when she removed the gauze, caused bleeding and pain. States she took oxycodone earlier this morning for her pain. She also states that they found a developing sacral pressure ulcer and states she currently has a bandage on it. She only receives home health 1 time a week and states she does not have any instructions about pressure ulcer care other than they told her to keep it dry . She is supposed to be seeing her primary care doctor on Thursday-48 hours from now. Patient is also concerned she may be developing thrush as she is having white spots in her mouth and burning pain-even lower with liquid intake. Patient chart states she has a history of diabetes type 2 (not on medications) and indicated to me she is currently on some steroids. Has not recently been on any antibiotics. Last set of lab work taken approximately 10 days ago showed a presumed nonfasting glucose of approximately 260. Related Data Home Medications Medication Instructions Recorded Confirmed albuterol sulfate 90 mcg/actuation 2 puff inhalation Q6H PRN 11/07/19 09/11/24 aerosol inhaler (Ventolin HFA) Shortness Of Breath Or Wheezing omeprazole 40 mg capsule,delayed 40 mg PO BID 11/07/19 09/11/24 release budesonide 160 mcg-glycopyr 9 2 inh inhalation BID 08/14/22 09/11/24 mcg-formot 4.8 mcg/actuation HFA inhaler (Breztri Aerosphere) irbesartan 300 mg tablet 300 mg PO DAILY 08/14/22 09/11/24 rosuvastatin 40 mg tablet 40 mg PO QPM 08/14/22 09/11/24 clopidogrel 75 mg tablet 75 mg PO DAILY 08/16/24 09/11/24 ferrous gluconate 324 mg (38 mg 324 mg PO Q48H 08/16/24 09/11/24 iron) tablet ipratropium 0.5 mg-albuterol 3 mg 3 ml inhalation QID 08/16/24 09/11/24 (2.5 mg base)/3 mL nebulization soln ondansetron HCl 8 mg tablet 8 mg PO TID PRN Nausea And Vomiting 08/16/24 09/11/24 oxycodone 5 mg capsule 5 mg PO Q8H PRN Pain 08/16/24 09/11/24 roflumilast 500 mcg tablet 500 mcg PO DAILY 08/16/24 09/11/24 amlodipine 10 mg tablet 10 mg PO DAILY 09/11/24 09/11/24 folic acid 1 mg tablet 1 mg PO DAILY 09/11/24 09/11/24 hydrochlorothiazide 25 mg tablet 25 mg PO DAILY 09/11/24 09/11/24 methotrexate sodium 2.5 mg tablet 2.5 mg PO Q7D 09/11/24 09/11/24 metoprolol succinate 50 mg 50 mg PO DAILY 09/11/24 09/11/24 tablet,extended release 24 hr nystatin 100,000 unit/gram topical 1 applic topical BID 09/11/24 09/11/24 powder (Nystop) prednisone 10 mg tablet See Taper PO BID 09/11/24 09/11/24 quetiapine 50 mg tablet 50 mg PO BID 09/11/24 09/11/24 silver (SilvaSorb topical 1 applic topical Q12H PRN wound 09/11/24 09/11/24 gel,extended release) dressing Previous Rx's Medication Instructions Recorded potassium chloride 20 mEq 20 meq PO BID #20 tabs 08/09/24 tablet,extended release sucralfate 1 gram tablet (Carafate) 1 g PO TID 4 weeks #84 tabs 08/16/24 lorazepam 1 mg tablet 0.5 mg (1/2 x 1 mg) PO BID PRN 08/22/24 anxiety #14 tabs fluconazole 150 mg tablet 150 mg PO Q3D 2 doses #2 tabs 09/11/24 metformin 1,000 mg tablet 1,000 mg PO DAILY #10 tabs 09/11/24 nystatin 100,000 unit/gram topical 1 applic topical BID #60 grams 09/11/24 powder Allergies Allergy/AdvReac Type Severity Reaction Status Date / Time codeine Allergy itching Verified 09/11/24 12:56 lamotrigine [From Lamictal] Allergy itching Verified 09/11/24 12:56 NSAIDS (Non-Steroidal Allergy ADR-Gastrointestinal Verified 09/11/24 12:56 Anti-Inflamma Upset Review of Systems General: Reports: 10 or more systems reviewed and unremarkable except in HPI and below PFSH ED PFSH: Medical History CKD (chronic kidney disease) Acute kidney injury superimposed on CKD Hypertension COPD (chronic obstructive pulmonary disease) Carotid stenosis, bilateral Carpal tunnel syndrome left carpal tunnel release DOS: 09/19/[address] Fernando Type 2 diabetes mellitus Cubital tunnel syndrome cubital tunnel release DOS: 09/19/20 Surgical History History of cholecystectomy H/O cataract removal with insertion of prosthetic lens H/O left wrist surgery Family History Sister Cancer Brother Cancer Hypertension Father Hypertension Denies family history of Diabetes CAD (coronary artery disease) Stroke Social History Smoking and tobacco/nicotine status: former use of tobacco/nicotine Quit status (tobacco/nicotine): has quit using Year quit tobacco: 3 weeks ago Former quit date comment: smoked 1 pack per day x 50 years Alcohol intake: former Year of sobriety/quit date alcohol: 2000 Substance/Drug Use: never Lives independently: Yes Household members: none Housing: House Marital status: Number of children: 3 Pets and animals: Yes Pets & animals: dog(s) Physical Exam Const: COMMON NORMALS: no acute distress, average body habitus and patient oriented x3 OTHER: Answering her own history. HENMT: COMMON NORMALS: normocephalic, atraumatic, hearing grossly normal bilaterally, Normal external nose present and moist oral mucous membranes HEAD & SCALP: normocephalic and atraumatic NOSE: Normal external nose present OTHER: Patient does have redness to the top of the tongue with a light yellow coating. Posterior pharynx is erythematous but no signs of exudate. Eye: COMMON NORMALS: Equal, round and reactive pupils present, EOMs intact bilaterally and conjunctivae normal CONJUNCTIVA: Yes conjunctivae normal PUPIL: Yes Equal, round and reactive pupils present Neck/C-Spine: COMMON NORMALS: no JVD Lymph: LYMPHATIC: no lymphadenopathy noted Resp: COMMON NORMALS: normal respiratory effort, No retractions and No use of accessory muscles Cardio: COMMON NORMALS: no JVD, regular rate and regular rhythm RATE: regular rate RHYTHM: regular rhythm GI: COMMON NORMALS: Normal to inspection, nondistended, normoactive bowel sounds present : COMMON NORMALS: Yes no CVA tenderness BLADDER/KIDNEY EXAM: Yes no CVA tenderness Back/Pelvis: COMMON NORMALS: no CVA tenderness and thoraco-lumbar ROM normal Extremity: COMMON NORMALS: normal to inspection, full ROM and capillary refill normal Neuro: COMMON NORMALS: patient oriented x3 Psych: COMMON NORMALS: mental status grossly normal, Normal thought process present, cooperative, normal affect and activity/motor behavior normal THOUGHT PROCESS: Normal thought process present Skin: OTHER: Patient has a significant mount of beefy red erythema with shininess of skin, drainage and discharge present across the pannus fold. Similar finding underneath the right breast fold. Patient has an erythematous sacral pressure ulcer developing without signs of involvement below the skin. Did present with bandaging and cream over this ulcer. Course Vital Signs: Vital signs: Vital Signs Temperature 98.4 F 09/11/24 12:53 Pulse Rate 84 09/11/24 14:54 Respiratory Rate 16 09/11/24 14:15 Blood Pressure 111/78 09/11/24 12:53 Pulse Oximetry 97 09/11/24 14:54 Oxygen Delivery Me thod Room Air 09/11/24 12:53 MDM - General Adult Medical Decision Making Patient presents to the emergency department today for concerns of pain and significant yeast infection. Patient states she has only had the redness now for couple of days and that the home health nurse gave her some medication to put on it. Also had recommendation to apply Desitin in the folds. Was also found to have the onset of a sacral pressure ulcer developing. Patient states she was not given much information on how to care for it at home. States she has an upcoming appoint with her doctor in approximately 48 hours but due to discomfort and family concern, came in to be evaluated today. Patient does have a significant yeast infection in the pannus fold. Unfortunately, as the patient has put Desitin in this area as well as nystatin, there is a thick and adherent accumulation of cream in the fold. Similar accumulation under the right breast though much less significant than the pannus fold. Patient was placed in the bed and we also examined the pressure ulcer. It does not appear to have started to affect the area below the top of the skin as there is just diffuse erythema at this time. Family states they only have 1 bandage at home. After speaking with the nurse, did get pressure ulcer bandaging from the floor sent down here to the emergency department to reapply and to show wound care recommendations with the family who indicates they will be doing this at home for the patient as she does not have daily nursing care. We discussed that the antibiotic provided from the home health nurse can be applied to the bandaging as well as the barrier cream after a once or twice a day cleaning of this area with warm water and mild soap. However, as with any type of pressure ulcer, the most important is to keep direct pressure off of it. We discussed the importance of the patient changing positions regularly and discussed the importance of her getting onto her right or left hip. If she is unable to do this, we recommended getting an inflatable donut for the patient to sit on to alleviate pressure on the sacrum. Explained how pressure ulcers developed so they are aware for future prevention. Nursing also help to assist in cleaning the Desitin accumulation from the pannus. It was an extremely painful process for the patient we did provide her some pain medication here in the emergency department. We used warm cleansing Closs to remove is much as we could however, patient's skin was very friable and there was still some material that was left on the skin. We padded the area dry and liberally applied nystatin powder to the pannus. We then placed ABD pads and paper tape to hold pads in place. Similar procedure performed for underneath the breast folds. Patient was also given a swish and swallow treatment of nystatin orally for concerns of developing thrush. As the patient is a type II diabetic not currently on medication and, has recently started on some high-dose steroids, my suspicion is her blood sugars are extremely high which has resulted in the significant yeast infection outbreak. Accu-Chek at bedside revealed a blood sugar of approximately 400. Patient admitted she does not check her blood sugars at home. Discussed with the patient family that with the steroid use, we [place] the blood sugars in check as I think we will not be getting resolution or improvement of the yeast infection until blood sugars are addressed. After talking to Dr. Bansal, we will start the patient on metformin. Family states patient had previously been on metformin before her doctor had taken her off of it. I think they may still have some at home but, I did go ahead and provide them a short course of metformin to begin again for the next few days until her doctor can recheck her blood sugars and determine whether or not continued or change in therapy is warranted at that time. Again reiterated the importance of her having her follow-up with her primary care doctor on Thursday. They may need to special order and continued wound care bandaging or, may need to increase the frequency for which home health comes and visits the patient during this time. Patient family verbalized understanding and agreement to treatment plan. Differential Diagnosis Yeast, cellulitis, contact dermatitis, eczema, psoriasis, chemical burn, allergic reaction No radiology studies performed this visit Discharge Plan Discharge Patient Disposition: Home Clinical Impression: Yeast infection of the skin, Sacral pressure ulcer, Diabetes mellitus Condition: Stable Prescriptions: New nystatin 100,000 unit/gram powder 1 applic topical BID Qty: 60 0RF fluconazole 150 mg tablet 150 mg PO Q3D Qty: 2 0RF metformin 1,000 mg tablet 1,000 mg PO DAILY Qty: 10 0RF No Action albuterol sulfate [Ventolin HFA] 90 mcg/actuation HFA aerosol inhaler 2 puff INHALATION Q6H PRN (Reason: Shortness Of Breath Or Wheezing) omeprazole 40 mg capsule,delayed release(DR/EC) 40 mg PO BID irbesartan 300 mg tablet 300 mg PO DAILY rosuvastatin 40 mg tablet 40 mg PO QPM Breztri Aerosphere 160-9-4.8 mcg/actuation HFA aerosol inhaler 2 inh inhalation BID potassium chloride 20 mEq tablet extended release 20 meq PO BID Qty: 20 0RF lorazepam 1 mg tablet 0.5 mg PO BID PRN (Reason: anxiety) Qty: 14 0RF metoprolol succinate 50 mg tablet extended release 24 hr 50 mg PO DAILY methotrexate sodium 2.5 mg tablet 2.5 mg PO Q7D amlodipine 10 mg tablet 10 mg PO DAILY folic acid 1 mg tablet 1 mg PO DAILY hydrochlorothiazide 25 mg tablet 25 mg PO DAILY nystatin [Nystop] 100,000 unit/gram powder 1 applic TOPICAL BID SilvaSorb Gel,Extended Release 1 applic TOPICAL Q12H PRN (Reason: wound dressing) quetiapine 50 mg tablet 50 mg PO BID prednisone 10 mg tablet See Taper PO BID Taper: predniSONE 60-10 60 mg Daily for 4 Days and 0 Hour 50 mg Daily for 4 Days and 0 Hour 40 mg Daily for 4 Days and 0 Hour 30 mg Daily for 4 Days and 0 Hour 20 mg Daily for 4 Days and 0 Hour 10 mg Daily for 4 Days and 0 Hour ipratropium-albuterol 0.5 mg-3 mg(2.5 mg base)/3 mL solution for nebulization 3 ml INHALATION QID ondansetron HCl 8 mg tablet 8 mg PO TID PRN (Reason: Nausea And Vomiting) clopidogrel 75 mg tablet 75 mg PO DAILY oxycodone 5 mg capsule 5 mg PO Q8H PRN (Reason: Pain) ferrous gluconate 324 mg (38 mg iron) tablet 324 mg PO Q48H roflumilast 500 mcg tablet 500 mcg PO DAILY sucralfate [Carafate] 1 gram tablet 1 g PO TID 28 Days Qty: 84 0RF Discharge Orders: Discharge ED (Routine); Ordered 09/11/24 Ordered By: Sharyn Martinez Referrals: Edvin Casiano MD [Primary Care Provider] - Discharge Diet: Diabetic Discharge Activity: Increase activity as tolerated Patient Instructions: Skin Yeast Infection (ED), Decubitus Ulcers Activity Restrictions/Additional Instructions: You have a significant yeast infection which I suspect is due to your recent steroid use and your underlying diabetes. Steroid use can significantly increase your blood sugars, making more predisposed to skin yeast infections. Unfortunately, this will take a while to get turned around but, I am going to encourage you to continue with your skin cleanings, nystatin powder, and bandaging in addition to taking an oral medication to help combat yeast infection. I recommend washing the skin under your pannus and your breasts at least once if not twice a day with some warm water and gentle soap. Try and remove any discharge or accumulation on the skin. I recommend doing this gently as the skin is extremely sensitive and can easily be disturbed and torn. It is very important that these areas get cleaned and dried thoroughly. Pat the area dry with a washcloth or towel before applying a copious amount of nystatin powder. You can then apply the ABD pads under the pannus and the gauze pads under your breast folds to help hold the medication and place and to also help prevent extra friction and rubbing in this area. I have given you a prescription for an additional bottle of nystatin as I want you to feel you can liberally apply the powder. It is very important that you see your doctor on Thursday to discuss. You may need further monitoring of your blood sugars while on the steroids and, to make sure that all signs of your yeast infection resolved with this treatment. It is also very important that they evaluate the pressure ulcer in your sacral region. At this time, it is still at an early stage and can be treated with the SilvaSorb gel and bandaging you have been provided. I recommend also washing this area once or twice a day and applying clean bandaging while this is healing but, the most important thing is to avoid direct pressure in this area. As we discussed, rotating your weight from hip to hip is the best way to help prevent pressure here. However, if you are needing to sit up and cannot be on your sides, I would recommend sitting on a donut pillow to help alleviate pressure on your sacrum. I am giving you a prescription for metformin. We would like you to take 1000 mg daily and recheck with your doctor on Thursday to see how your blood sugars are responding. He may need to increase or change her dosing regimen to continue to control your blood sugars better. Coding Level of Care Code ED Vice President Quality Assurance for Kalin Collado
[2024-09-11 14:15] VITALS: RESP 16; O2SAT 97
[2024-09-11] MEDS: nystatin powder 15 gm Btl 1 APPLIC TOPICAL (14:15)
[2024-09-11] MEDS: oxyCODONE-APAP 5-325 mg Tablet 1 TAB PO (14:15)
[2024-09-11] MEDS: nystatin 100,000 unit/mL UDC 5 mL 400000 UNIT PO (14:15)
[2024-09-11 14:54] VITALS: PULSE 84; O2SAT 97
[2024-09-14 12:08] LABS: Glucose Point of Care 394 mg/dL (70-110)
== END 2024-09-11 14:55 | disposition home or self-care (01) ==
PROVIDERS: Emergency Provider Physician Assistant; PCP Family Medicine
DX: B37.2 Candidiasis of skin and nail (principal); L89.159 Pressure ulcer of sacral region, unspecified stage; E11.22 Type 2 diabetes mellitus with diabetic chronic kidney disease; I12.9 Hypertensive chronic kidney disease with stage 1 through stage 4 chronic kidney disease, or unspecified chronic kidney disease; N18.9 Chronic kidney disease, unspecified; J44.9 Chronic obstructive pulmonary disease, unspecified; Z87.891 Personal history of nicotine dependence
CPT/HCPCS: 36416; 82962; 99283

== ENCOUNTER 2024-09-13 04:22 | Inpatient (IN) | payer MEDICARE, MEDICAID, SELFPAY ==
[2024-09-13] VITALS (18 sets, daily range): BP systolic 105–134; BP diastolic 47–75; PULSE 72–115; RESP 16–22; TEMP 36.7–37.3; O2SAT 90–96; BMI 27.4; BMI 26.2
--- NOTE | 2024-09-13 04:52 | ED_ITS ---
HPI - Skin/Abscess/Foreign Bdy 2 General: Chief complaint: Skin/Abscess/Foreign Body Stated complaint: Rash\Under Breast and Folds of Skin Time Seen by Provider: 09/13/24 04:26 History of Present Illness: 73-year-old female with a history of remberto betes, chronic kidney disease, COPD who presents emergency room with worsening pain associated with wounds in her pannus. She is being treated for possible candidal infection. At this point the wound looks fairly angry. She has bleeding from some of the wound. She was seen here yesterday but the pain became unbearable this morning and so she came back to the emergency room. No known systemic fevers. She also has a sacral ulcer. She does have chronic pain syndrome and is on chronic oxycodone therapy Related Data Home Medications Medication Instructions Recorded Confirmed albuterol sulfate 90 mcg/actuation 2 puff inhalation Q6H PRN 11/07/19 09/11/24 aerosol inhaler (Ventolin HFA) Shortness Of Breath Or Wheezing omeprazole 40 mg capsule,delayed 40 mg PO BID 11/07/19 09/11/24 release budesonide 160 mcg-glycopyr 9 2 inh inhalation BID 08/14/22 09/11/24 mcg-formot 4.8 mcg/actuation HFA inhaler (Breztri Aerosphere) irbesartan 300 mg tablet 300 mg PO DAILY 08/14/22 09/11/24 rosuvastatin 40 mg tablet 40 mg PO QPM 08/14/22 09/11/24 clopidogrel 75 mg tablet 75 mg PO DAILY 08/16/24 09/11/24 ferrous gluconate 324 mg (38 mg 324 mg PO Q48H 08/16/24 09/11/24 iron) tablet ipratropium 0.5 mg-albuterol 3 mg 3 ml inhalation QID 08/16/24 09/11/24 (2.5 mg base)/3 mL nebulization soln ondansetron HCl 8 mg tablet 8 mg PO TID PRN Nausea And Vomiting 08/16/24 09/11/24 oxycodone 5 mg capsule 5 mg PO Q8H PRN Pain 08/16/24 09/11/24 roflumilast 500 mcg tablet 500 mcg PO DAILY 08/16/24 09/11/24 amlodipine 10 mg tablet 10 mg PO DAILY 09/11/24 09/11/24 folic acid 1 mg tablet 1 mg PO DAILY 09/11/24 09/11/24 hydrochlorothiazide 25 mg tablet 25 mg PO DAILY 09/11/24 09/11/24 methotrexate sodium 2.5 mg tablet 2.5 mg PO Q7D 09/11/24 09/11/24 metoprolol succinate 50 mg 50 mg PO DAILY 09/11/24 09/11/24 tablet,extended release 24 hr nystatin 100,000 unit/gram topical 1 applic topical BID 09/11/24 09/11/24 powder (Nystop) prednisone 10 mg tablet See Taper PO BID 09/11/24 09/11/24 quetiapine 50 mg tablet 50 mg PO BID 09/11/24 09/11/24 silver (SilvaSorb topical 1 applic topical Q12H PRN wound 09/11/24 09/11/24 gel,extended release) dressing Previous Rx's Medication Instructions Recorded potassium chloride 20 mEq 20 meq PO BID #20 tabs 08/09/24 tablet,extended release lorazepam 1 mg tablet 0.5 mg (1/2 x 1 mg) PO BID PRN 08/22/24 anxiety #14 tabs fluconazole 150 mg tablet 150 mg PO Q3D 2 doses #2 tabs 09/11/24 metformin 1,000 mg tablet 1,000 mg PO DAILY #10 tabs 09/11/24 nystatin 100,000 unit/gram topical 1 applic topical BID #60 grams 09/11/24 powder Allergies Allergy/AdvReac Type Severity Reaction Status Date / Time codeine Allergy itching Verified 09/13/24 04:34 lamotrigine [From Lamictal] Allergy itching Verified 09/13/24 04:34 NSAIDS (Non-Steroidal Allergy ADR-Gastrointestinal Verified 09/13/24 04:34 Anti-Inflamma Upset Review of Systems 2 Narrative: Constitutional symptoms: Negative except as documented in HPI. Skin symptoms: Negative except as documented in HPI. Eye symptoms: Negative except as documented in HPI. ENMT symptoms: Negative except as documented in HPI. Respiratory symptoms: Negative except as documented in HPI. Cardiovascular symptoms: Negative except as documented in HPI. Gastrointestinal symptoms: Negative except as documented in HPI. Genitourinary symptoms: Negative except as documented in HPI. Musculoskeletal symptoms: Negative except as documented in HPI. Neurologic symptoms: Negative except as documented in HPI. Psychiatric symptoms: Negative except as documented in HPI. Endocrine symptoms: Negative except as documented in HPI. PFSH ED 2 PFSH: Medical History CKD (chronic kidney disease) Acute kidney injury superimposed on CKD Hypertension COPD (chronic obstructive pulmonary disease) Carotid stenosis, bilateral Carpal tunnel syndrome left carpal tunnel release DOS: 09/19/[address] Fernando Type 2 diabetes mellitus Cubital tunnel syndrome cubital tunnel release DOS: 09/19/20 Surgical History History of cholecystectomy H/O cataract removal with insertion of prosthetic lens H/O left wrist surgery Family History Sister Cancer Brother Cancer Hypertension Father Hypertension Denies family history of Diabetes CAD (coronary artery disease) Stroke Social History Smoking and tobacco/nicotine status: former use of tobacco/nicotine Quit status (tobacco/nicotine): has quit using Year quit tobacco: 3 weeks ago Former quit date comment: smoked 1 pack per day x 50 years Alcohol intake: former Year of sobriety/quit date alcohol: 2000 Substance/Drug Use: never Lives independently: Yes Household members: none Housing: House Marital status: Number of children: 3 Pets and animals: Yes Pets & animals: dog(s) Physical Exam 2 Narrative: EXAM NARRATIVE: General: Alert, no acute distress. Skin: Patient has rash/cellulitis in the fold of her pannus. There is some bleeding from some of the wounds. No obvious abscess. Head: Normocephalic, atraumatic. Neck: Supple, trachea midline. Eye: Extraocular movements are intact. Ears, nose, mouth and throat: mucosa moist. Cardiovascular: Regular, Normal peripheral perfusion. Respiratory: Lungs are clear to auscultation, respirations are non-labored, breath sounds are equal, Symmetrical chest wall expansion. Gastrointestinal: Soft, Nontender, Non distended Musculoskeletal: Normal ROM, no deformity. Neurological: Alert and oriented, No focal neurological deficit observed. Psychiatric: Cooperative, appropriate mood & affect. Course 2 Vital Signs: Vital signs: Vital Signs Temperature 98.1 F 09/13/24 04:27 Pulse Rate 110 H 09/13/24 04:27 Respiratory Rate 18 09/13/24 04:27 Blood Pressure 130/70 09/13/24 04:27 Pulse Oximetry 95 09/13/24 04:27 Oxygen Delivery Me thod Room Air 09/13/24 04:27 MDM - Skin/Abscess/Foreign Bdy Medicial Decision Making Lab Review: Laboratory results were reviewed and interpreted by myself the emergency room physician. No leukocytosis. No anemia. She does have acute renal insufficiency with a creatinine of 1.9 which is up from 1.2 recently. ESR and CRP are significantly elevated I reviewed the patient's medical record. Reexamination: Patient remained stable. No increased work of breathing. No altered mental status. No focal motor deficits. Consultation: I spoke with Dr. Maguire who has agreed to admit the patient Assessment and plan: Panniculitis Acute on chronic renal insufficiency Chronic pain syndrome Hyperglycemia ?Normal saline bolus, IV insulin, IV fluconazole, Zyvox and cefepime -I discussed the patient with the hospitalist on-call who is admitting the patient. - Discussed findings and plan with patient. Answered any questions. - All laboratory values were reviewed and interpreted personally by myself, the ER physician - All imaging was reviewed and interpreted personally by myself, the ER physician. - Evaluation and treatment of this problem were appropriate in the emergency setting Lab Data 09/13/24 04:40 09/13/24 04:40 Laboratory Results WBC 5.76 10^3/uL (3.29-11.43) 09/13/24 04:40 RBC 3.96 10^6/uL (3.85-5.65) 09/13/24 04:40 Hgb 11.40 g/dL (11.27-16.99) 09/13/24 04:40 Hct 34.4 % (36-47) L 09/13/24 04:40 MCV 86.9 fl (85-98) 09/13/24 04:40 MCH 28.8 pg (27-33) 09/13/24 04:40 MCHC 33.1 g/dL (30-55) 09/13/24 04:40 RDW 13.2 % (12.1-15.1) 09/13/24 04:40 Plt Count 155 10^3/cmm (157-399) L 09/13/24 04:40 MPV 9.7 fL (7.4-10.4) 09/13/24 04:40 Neut % (Auto) 81.9 % 09/13/24 04:40 Lymph % (Auto) 14.8 % 09/13/24 04:40 [place] % (Auto) 0.9 % 09/13/24 04:40 Eos % (Auto) 1.7 % 09/13/24 04:40 Baso % (Auto) 0.2 % 09/13/24 04:40 Neut # (Auto) 4.72 10^3/uL (1.8-7.7) 09/13/24 04:40 Lymph # (Auto) 0.9 10^3/uL (0.8-4.8) 09/13/24 04:40 [place] # (Auto) 0.1 10^3/uL (0.2-0.9) L 09/13/24 04:40 Eos # (Auto) 0.1 10^3/uL (0.0-0.8) 09/13/24 04:40 Baso # (Auto) 0.0 10^3/uL (0.0-0.1) 09/13/24 04:40 Nucleated RBC % (auto) 0.3 % 09/13/24 04:40 Nucleated RBCs # 0.0 /100WBC 09/13/24 04:40 ESR 41 mm/hr (0-15) H 09/13/24 04:40 Sodium 132 mmol/L (136-145) L 09/13/24 04:40 Potassium 3.9 mmol/L (3.5-5.1) 09/13/24 04:40 Chloride 93 mmol/L (98-107) L 09/13/24 04:40 Carbon Dioxide 24 mmol/L (22-29) 09/13/24 04:40 Anion Gap 18.9 (5-19) 09/13/24 04:40 BUN 46 mg/dL (8-23) H 09/13/24 04:40 Creatinine 1.9 mg/dL (0.5-0.9) H 09/13/24 04:40 GFR Calculation Not Reportable 09/13/24 04:40 Glucose 419 mg/dL (65-115) H 09/13/24 04:40 Calculated Osmolality 304 mOsm/kg (285-295) H 09/13/24 04:40 Calcium 9.0 mg/dL (8.5-10.5) 09/13/24 04:40 Total Bilirubin 0.4 mg/dL (0.15-1.2) 09/13/24 04:40 AST 34 U/L (0-32) H 09/13/24 04:40 ALT 115 U/L (0-33) H 09/13/24 04:40 Alkaline Phosphatase 137 U/L (35-105) H 09/13/24 04:40 C-Reactive Protein 88.1 mg/L (0.0-4.9) H 09/13/24 04:40 Total Protein 6.3 g/dL (6.6-8.7) L 09/13/24 04:40 Albumin 3.3 g/dL (3.5-5.2) L 09/13/24 04:40 Globulin 3.0 g/dL (1.3-4.6) 09/13/24 04:40 No radiology studies performed this visit Discharge Plan Discharge Patient Disposition: Admitted As Inpatient Clinical Impression: Panniculitis, Acute on chronic renal insufficiency, Hyperglycemia, Dehydration, Chronic pain syndrome Condition: Stable Coding Level of Care Code ED Storage Consultant for Kalin Collado
[2024-09-13] MEDS: ondansetron 2 mg/ML SDV 2 mL 4 MG IVP ×2 (04:57→23:39)
[2024-09-13] MEDS: morphine 4 mg/mL SDV 1 mL IVP (04:57)
[2024-09-13 05:02] LABS: Basophils % 0.2 %; Hematocrit 34.4 % (36-47); Mean Corpuscular HGB Conc 33.1 g/dL (30-55); Mean Platelet Volume 9.7 fL (7.4-10.4); Red Cell Distribution Width 13.2 % (12.1-15.1)
[2024-09-13 05:04] LABS: Erythrocyte Sedimentation Rate 41 mm/hr (0-15)
[2024-09-13 05:08] LABS: Eosinophils # 0.1 10^3/uL (0.0-0.8); Eosinophils % 1.7 %; Lymphocytes # 0.9 10^3/uL (0.8-4.8); Lymphocytes % 14.8 %; Mean Corpuscular Hemoglobin 28.8 pg (27-33); Mean Corpuscular Volume 86.9 fl (85-98); Monocytes # 0.1 10^3/uL (0.2-0.9); Monocytes % 0.9 %; Neutrophils # 4.72 10^3/uL (1.8-7.7); Neutrophils % 81.9 %; Nucleated Red Blood Cells % 0.3 %; Platelet Count 155 10^3/cmm (157-399); Red Blood Count 3.96 10^6/uL (3.85-5.65); White Blood Count 5.76 10^3/uL (3.29-11.43)
[2024-09-13 05:09] LABS: Alanine Aminotransferase 115 U/L (0-33); Albumin Level 3.3 g/dL (3.5-5.2); Alkaline Phosphatase 137 U/L (35-105); Anion Gap 18.9 (5-19); Aspartate Amino Transferase 34 U/L (0-32); Blood Urea Nitrogen 46 mg/dL (8-23); C Reactive Protein 88.1 mg/L (0.0-4.9); Carbon Dioxide 24 mmol/L (22-29); Chloride 93 mmol/L (98-107); Creatinine Clr Calc Pharmacy 25.3639; Glucose 419 mg/dL (65-115); Osmolality Calculated 304 mOsm/kg (285-295); Potassium 3.9 mmol/L (3.5-5.1); Sodium 132 mmol/L (136-145); Total Bilirubin 0.4 mg/dL (0.15-1.2); Total Protein 6.3 g/dL (6.6-8.7)
[2024-09-13] MEDS: cefepime 2,000 MG in sodium chloride 0.9% (plus) 50 ML 100 MG IV (05:20)
[2024-09-13] MEDS: linezolid premix 600 MG/300 ML PREMIX 300 MG IV (05:21)
[2024-09-13] MEDS: fluconazole premix 200 MG/100 ML PREMIX 100 MG IV (05:22)
[2024-09-13] MEDS: sodium chloride 0.9% 1,000 ML 999 ML IV (05:23)
[2024-09-13 05:25] LABS: Add RBC Morph Yes; RBC Morph Comp No; Slide Review Slide Review Perform
[2024-09-13 05:27] LABS: Hypersegmented Polys 1
[2024-09-13] MEDS: insulin regular-human 100 units/1 mL 10 UNIT IVP (05:28)
--- NOTE | 2024-09-13 07:29 | P.HP_ITS ---
Providers/Chief Complaint 2 Admitting Physician: Zeynep Maguire MD Primary Care Provider: Edvin Casiano MD Chief Complaint: Rash\Under Breast and Folds of Skin\Mouth Thrush History of Present Illness Katerina Orozco is a 73 year old female with past medical history of CVA, peripheral vascular disease, bilateral carotid artery stenosis, type 2 diabetes melitis, hypertension, CKD with baseline creatinine of 1.1-1.7. She is presenting to the hospital with chief complaints of worsening candidiasis over bilateral groin folds, under the breasts, and buttocks. Additionally has oropharyngeal candidiasis. States that she has had progressive odynophagia to the point where she is not able to eat or drink anything currently. Patient was recently diagnosed with a presumptive diagnosis of PMR and has been on steroid taper since August 16, 2024. Initially started off with prednisone 50 mg p.o. daily which is being tapered down currently to 20 mg p.o. daily and followed by patient's primary care physician. It appears she did require a recently increased dose of 50 mg p.o. daily due to a flare of arthritis in her right hand for a few days. She developed candidiasis recently for which she presented into the emergency room on 09/11/2024 and was started on fluconazole. Her symptoms have continued to worsen, to the point where she has multiple bleeding ulcers over bilateral groin folds and under her breast. These are extremely painful. There is signs of cellulitis over the lower abdomen additionally. As per the history provided by patient and patient's son at bedside and review of chart, patient had been on Celebrex for a long time for joint pains which were discontinued very recently in June because of heme positive stool. She has undergone an upper and lower endoscopy since then. It appears she was detected to have colonic polyps which were removed. Do not have the results for direct review at this present time. With discontinuation of NSAIDs, it seems she had developed migrating joint effusions with sedimentation rate of 46 and CRP of 75, negative CORI and RA factor on workup and therefore started high-dose steroids. 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 She is scheduled to see vascular surgery as an outpatient. Of note she has widely varying blood pressures as a result of this occlusion. Her right arm is a reliable site to take blood pressure. She denies any fever or chills currently. Today she is noted to have signs of LIZY on CKD, transaminitis on labs. Review of Systems 2 General: Reports: 10 or more systems reviewed and unremarkable except in HPI and below Const: Denies: fever(s), chills or body aches Eyes: Denies: change in vision, blurry vision or photophobia ENMT: Reports: hoarseness; Denies: throat pain, enlarged tonsils, odynophagia or nasal congestion Card: Denies: chest pain, palpitations, irregular heart rhythm, edema, swelling of feet/ankles, lightheadedness, pre-syncope, dyspnea on exertion or orthopnea Resp: Denies: dyspnea, productive cough, non-productive cough, wheezing, stridor, pain on inspiration, change in phlegm color, hemoptysis or chest congestion GI: Denies: abdominal pain, nausea, vomiting, hematemesis, coffee ground emesis, dysphagia, heartburn, diarrhea, constipation, GI cramping, change in stool character, hematochezia or melena : Denies: flank pain, difficulty voiding, dysuria, urinary frequency, urinary urgency, urinary hesitancy or hematuria Musc: Denies: neck pain, back pain, extremity pain, joint swelling, joint warmth or deformity Neuro: Denies: headache(s), numbness in extremities, weakness in extremities, sensory changes, difficulty walking, frequent falls, dizziness, vertigo, behavioral changes, Slurred speech present or seizure-like activity Psych: Denies: anxiety, depression, suicidal ideation or homicidal ideation Endo: Denies: polyuria, polydipsia, tired all the time, cold intolerance or hot flashes [place]/Lymph: Denies: easy bruising or easy bleeding Medications/Allergies Home Medications Medication Instructions Recorded Confirmed Last Taken Type albuterol sulfate 90 mcg/actuation 2 puff inhalation Q6H PRN 11/07/19 09/13/24 08/15/24 History aerosol inhaler (Ventolin HFA) Shortness Of Breath Or Wheezing omeprazole 40 mg capsule,delayed 40 mg PO BID 11/07/19 09/13/24 09/11/24 History release budesonide 160 mcg-glycopyr 9 2 inh inhalation BID 08/14/22 09/13/24 09/11/24 History mcg-formot 4.8 mcg/actuation HFA inhaler (Breztri Softheonphere) irbesartan 300 mg tablet 300 mg PO DAILY 08/14/22 09/13/24 09/11/24 History rosuvastatin 40 mg tablet 40 mg PO QPM 08/14/22 09/13/24 09/10/24 History potassium chloride 20 mEq 20 meq PO BID #20 tabs 08/09/24 09/13/24 08/15/24 Rx tablet,extended release clopidogrel 75 mg tablet 75 mg PO DAILY 08/16/24 09/13/24 09/11/24 History ferrous gluconate 324 mg (38 mg 324 mg PO Q48H 08/16/24 09/13/24 09/11/24 History iron) tablet ipratropium 0.5 mg-albuterol 3 mg 3 ml inhalation QID 08/16/24 09/13/24 09/11/24 History (2.5 mg base)/3 mL nebulization soln ondansetron HCl 8 mg tablet 8 mg PO TID PRN Nausea And Vomiting 08/16/24 09/13/24 Unknown History oxycodone 5 mg capsule 5 mg PO Q8H PRN Pain 08/16/24 09/13/24 08/16/24 04:00 History roflumilast 500 mcg tablet 500 mcg PO DAILY 08/16/24 09/13/24 09/11/24 History lorazepam 1 mg tablet 0.5 mg (1/2 x 1 mg) PO BID PRN 08/22/24 09/13/24 Unknown Rx anxiety #14 tabs amlodipine 10 mg tablet 10 mg PO DAILY 09/11/24 09/13/24 09/11/24 History fluconazole 150 mg tablet 150 mg PO Q3D 2 doses #2 tabs 09/11/24 09/13/24 Unknown Rx folic acid 1 mg tablet 1 mg PO DAILY 09/11/24 09/13/24 09/11/24 History hydrochlorothiazide 25 mg tablet 25 mg PO DAILY 09/11/24 09/13/24 09/11/24 History metformin 1,000 mg tablet 1,000 mg PO DAILY #10 tabs 09/11/24 09/13/24 Unknown Rx methotrexate sodium 2.5 mg tablet 2.5 mg PO Q7D 09/11/24 09/13/24 Unknown History metoprolol succinate 50 mg 50 mg PO DAILY 09/11/24 09/13/24 09/11/24 History tablet,extended release 24 hr nystatin 100,000 unit/gram topical 1 applic topical BID #60 grams 09/11/24 09/13/24 Unknown Rx powder nystatin 100,000 unit/gram topical 1 applic topical BID 09/11/24 09/13/24 09/11/24 History powder (Nystop) prednisone 10 mg tablet See Taper PO BID 09/11/24 09/13/24 09/11/24 History quetiapine 50 mg tablet 50 mg PO BID 09/11/24 09/13/24 Unknown History silver (SilvaSorb topical 1 applic topical Q12H PRN wound 09/11/24 09/13/24 Unknown History gel,extended release) dressing Allergies Allergy/AdvReac Type Severity Reaction Status Date / Time codeine Allergy itching Verified 09/13/24 04:34 lamotrigine [From Lamictal] Allergy itching Verified 09/13/24 04:34 NSAIDS (Non-Steroidal Allergy ADR-Gastrointestinal Verified 09/13/24 04:34 Anti-Inflamma Upset PFSH Acute 2 PFSH: Medical History CKD (chronic kidney disease) Acute kidney injury superimposed on CKD Hypertension COPD (chronic obstructive pulmonary disease) Carotid stenosis, bilateral Carpal tunnel syndrome left carpal tunnel release DOS: 09/19/[address] Fernando Type 2 diabetes mellitus Cubital tunnel syndrome cubital tunnel release DOS: 09/19/20 Surgical History History of cholecystectomy H/O cataract removal with insertion of prosthetic lens H/O left wrist surgery Family History Sister Cancer Brother Cancer Hypertension Father Hypertension Denies family history of Diabetes CAD (coronary artery disease) Stroke Social History Smoking and tobacco/nicotine status: former use of tobacco/nicotine Quit status (tobacco/nicotine): has quit using Year quit tobacco: 3 weeks ago Former quit date comment: smoked 1 pack per day x 50 years Alcohol intake: former Year of sobriety/quit date alcohol: 2000 Substance/Drug Use: never Lives independently: Yes Household members: none Housing: House Marital status: Number of children: 3 Pets and animals: Yes Pets & animals: dog(s) Vitals/I&O/Wt Last Vital Signs Temp 98.1 F 09/13/24 04:27 Pulse 97 09/13/24 06:10 Resp 18 09/13/24 05:34 BP 105/47 09/13/24 06:10 Pulse Ox 95 09/13/24 06:10 O2 Del Method Room Air 09/13/24 04:27 09/12/24 09/13/24 09/13/24 22:59 06:59 14:59 Intake Total 50 / 50 Balance 50 / 50 Weight last 48 hrs Weight 69.4 kg Weight 72.575 kg Physical Exam 2 Narrative: General: No acute distress, AO x3 HEENT: PERRLA, oropharyngeal candidiasis present Chest: Normal vesicular breath sounds, no added sounds, equal good air entry bilaterally CVS: S1-S2 regular, no murmurs, no tachycardia, no gallops, no rubs Abdomen: Soft, nontender, no organomegaly, bowel sounds present. Bilateral diffuse groin folds with excoriation. Multiple shallow bleeding ulcers noted bilaterally, worse over left side of the abdomen. There is significant crusting overlying which may be residue from diaper rash creams versus discharge from the ulcers. There is signs of cellulitis over the left lower abdomen. Neuro: No focal deficits, no facial deformity, AO x3, power 5/5 in all limbs Extremities. Bleeding shallow ulceration over bilateral breast folds, right worse than left. Erythema involving skin fold between bilateral buttocks. Secretions noted over this area. Data 09/14/24 04:41 09/14/24 04:41 Micro: Microbiology 09/13/24 04:50 Blood Culture - Preliminary Blood SPECIMEN COLLECTED 09/13/24 04:45 Blood Culture - Preliminary Blood SPECIMEN COLLECTED A&P Assessment and plan (1) Candidiasis: (2) Abdominal wall cellulitis: (3) Chronic steroid use: (4) Hyperglycemia: Plan Severe candidiasis affecting multiple sites including bilateral groin folds, bilateral breast folds, buttock folds, oropharyngeal candidiasis with possibility of esophageal candidiasis given complaints of odynophagia. Most likely this severity is related to recent steroid use over the past 1 month in addition to having uncontrolled hyperglycemia. Multiple shallow bleeding ulcerations noted over the above areas. Additionally signs of abdominal wall cellulitis particularly over the left lower abdomen. Patient has started oral fluconazole recently as outpatient without any significant improvement. Will admit to [facility] Start fluconazole 100 mg IV every 24 hours over the next 10 days. Magic mouthwash to help with mucositis and odynophagia. Local application of clotrimazole and mupirocin over affected sites twice daily. IV antibiotics including cefepime renally dosed and linezolid 600 mg p.o. daily. Check MRSA PCR Most likely severity of symptoms is related to recent steroid use, however given severity recommended to check for underlying immunocompromise, discussed with patient and consented to check HIV and hepatitis screening. Differentials at this time include SJS, dress syndrome however consider these to be less likely given distribution of lesions in the skin folds, no peripheral eosinophilia LIZY on CKD and transaminitis likely related to dehydration given poor p.o. intake related to odynophagia. Saline at 75 cc an hour for a total volume of 1000 cc. Reassess labs with hydration. Lower steroid dose to prednisone 10 mg daily DVT prophylaxis: Heparin 5000 subcutaneous every 12 hours Full code Attestations 2 Medical Necessity Statement*: > 2 midnight stay is anticipated Coding Level of Care Code Acute Code for Chg Fwd High MDM includes number and complexity of problems actively addressed during encounter, amount and/or complexity of data reviewed/ordered and described risk of complication, morbidity or mortality of management as documented Diagnoses Candidiasis B37.9 Abdominal wall cellulitis L03.311 Chronic steroid use Hyperglycemia R73.9
--- NOTE | 2024-09-13 07:50 | PC.PHAR ---
patient was discharged from hospital 2 days ago from [facility] confirms meds are still the same
[2024-09-13 08:13] LABS: Thyroid Stimulating Hormone 1.53 uIU/mL (0.27-4.20)
[2024-09-13] MEDS: sodium chloride 0.9% 1,000 ML 75 ML IV (08:30)
[2024-09-13] MEDS: morphine 4 mg/mL SDV 1 mL 2 MG IVP ×2 (08:38→20:58)
[2024-09-13] MEDS: pantoprazole DR 40 mg Tablet PO (08:42)
[2024-09-13] MEDS: metoprolol succinate ER (24 HR) 50 mg Tablet PO (08:42)
[2024-09-13] MEDS: linezolid 600 mg Tablet PO ×2 (08:42→21:04)
[2024-09-13] MEDS: predniSONE 10 mg Tablet PO (08:43)
[2024-09-13] MEDS: heparin 5,000 unit/mL INJ 1 mL 5000 UNIT SUBCUT ×2 (08:43→21:05)
[2024-09-13] MEDS: clopidogrel 75 mg Tablet PO (08:43)
[2024-09-13] MEDS: clotrimazole 1% cream 30 gm 1 APPLIC TOPICAL ×2 (08:44→17:05)
[2024-09-13 08:50] LABS: Glucose Point of Care 139 mg/dL (70-110)
[2024-09-13] MEDS: lidocaine 2% jelly 1 APPLIC/6 ML TUBE TOPICAL ×2 (08:51→17:15)
[2024-09-13] MEDS: lidocaine 2% viscous 15 ML, diphenhydrAMINE oral liq 37.5 MG, aluminum-mag hydrox-simet... MUCOUS MEM ×4 (09:21→21:05)
[2024-09-13] MEDS: budesonide 0.5 mg/2 mL Neb INHALATION ×2 (10:02→20:29)
[2024-09-13] MEDS: ipratropium-albuterol 3 mL Neb INHALATION ×3 (10:02→20:29)
[2024-09-13 10:31] LABS: Glucose Point of Care 277 mg/dL (70-110)
[2024-09-13 10:42] LABS: MRSA PCR OZH (swab) NOT DETECTED (Not Detecte)
[2024-09-13] MEDS: insulin lispro 100 unit/1 mL SUBCUT ×3 (11:45→21:05)
[2024-09-13] MEDS: mupirocin oint 22 gm 1 APPLIC TOPICAL ×2 (11:45→17:05)
[2024-09-13 13:34] LABS: Estmated Average Glucose 237; Hemoglobin A1C 9.9 % (4.0-6.0)
[2024-09-13 13:47] LABS: Anion Gap 15.3 (5-19); Blood Urea Nitrogen 41 mg/dL (8-23); Calcium 8.4 mg/dL (8.5-10.5); Carbon Dioxide 24 mmol/L (22-29); Chloride 95 mmol/L (98-107); Creatinine Clr Calc Pharmacy 27.7658; Glucose 290 mg/dL (65-115); Osmolality Calculated 293 mOsm/kg (285-295); Potassium 3.3 mmol/L (3.5-5.1); Sodium 131 mmol/L (136-145)
[2024-09-13 13:50] LABS: Iron 33 ug/dL (37-145); Percent Saturation 15.7 % (20-50); Total Iron Binding Capacity 209 mcg/dl; Unsaturated Iron Binding 176 ug/dL (112-347)
[2024-09-13 14:05] LABS: Procalcitonin 0.19 ng/mL (0-0.5); Vitamin B12 956 pg/mL (232-1245)
[2024-09-13 14:11] LABS: HIV 1 & 2 Antibody Non-Reactive (Non-Reactiv); HIV 1 & 2 Antigen Non-Reactive (Non-Reactiv)
[2024-09-13 14:13] LABS: Hepatitis A Antibody IgM Non-Reactive (Nonreactive); Hepatitis B Core AB, Total Non-Reactive (Nonreactive); Hepatitis B Surface AB < 3.5 (11.5-1000); Hepatitis B Surface Antigen Non-Reactive (Nonreactive); Hepatitis C Virus Antibody Non-Reactive (Nonreactive)
[2024-09-13] MEDS: oxyCODONE 5 mg IR Tab/Cap PO (15:35)
[2024-09-13 16:43] LABS: Glucose Point of Care 209 mg/dL (70-110)
[2024-09-13] MEDS: atorvastatin 40 mg Tablet PO (17:04)
[2024-09-13] MEDS: nicotine 21 mg Patch 1 PATCH TRANSDERMA (17:23)
[2024-09-13 19:10] LABS: Creatine Phosphokinase 77 U/L (26-192)
[2024-09-13 20:05] LABS: Glucose Point of Care 184 mg/dL (70-110)
[2024-09-13 23:46] LABS: Bilirubin Urine Negative (Negative); Blood Urine 1+ (Negative); Glucose Urine UA Negative (Normal); Ketones Urine Negative (Negative); Leukocyte Esterase Urine Trace (Negative); Nitrate Urine Negative (Negative); Protein Urine 2+ (Negative); Specific Gravity, Urine 1.012 (1.005-1.030); Urine Appearance Clear (CLEAR); Urine Color Yellow (Yellow); Urobilinogen Urine 0.2 mg/dL (Negative)
[2024-09-13 23:51] LABS: Add Urine Microscopic? YES; Bacteria Urine None Seen /hpf; Hyaline Casts Urine 4.52 /lpf; Squamous Epithelial Cell Urine 0-5 /hpf (0-5); WBC Urine 0-5 /hpf (0-5)
[2024-09-13 23:57] LABS: Potassium, Radom Urine 15 mmol/L; Urine Creatinine 48 mg/dL (28-217); Urine Random Chloride 98 mmol/L; Urine Random Sodium 103 mmol/L
[2024-09-14] VITALS (22 sets, daily range): BP systolic 109–146; BP diastolic 63–76; PULSE 58–103; RESP 15–20; TEMP 36.4–37.4; O2SAT 90–95
[2024-09-14 00:18] LABS: Eosinophil Urine No Eosinophils Seen; Urine Eosinophil Count 0 (0-0)
[2024-09-14] MEDS: ipratropium-albuterol 3 mL Neb INHALATION ×4 (02:08→20:37)
[2024-09-14] MEDS: oxyCODONE 5 mg IR Tab/Cap PO ×3 (02:38→23:48)
[2024-09-14 05:18] LABS: Eosinophils # 0.1 10^3/uL (0.0-0.8); Eosinophils % 2.9 %; Hematocrit 30.3 % (36-47); Lymphocytes # 0.9 10^3/uL (0.8-4.8); Mean Corpuscular HGB Conc 31.7 g/dL (30-55); Mean Corpuscular Hemoglobin 28.3 pg (27-33); Mean Corpuscular Volume 89.4 fl (85-98); Mean Platelet Volume 9.6 fL (7.4-10.4); Monocytes % 0.4 %; Neutrophils # 3.73 10^3/uL (1.8-7.7); Nucleated Red Blood Cells % 0 %; Platelet Count 106 10^3/cmm (157-399); Red Blood Count 3.39 10^6/uL (3.85-5.65); Red Cell Distribution Width 13.4 % (12.1-15.1); White Blood Count 4.83 10^3/uL (3.29-11.43)
[2024-09-14 05:37] LABS: Chol HDL Ratio 1.67 mg/dL (0.0-4.40); Cholesterol 147 mg/dL (0-200); HDL Cholesterol 88 mg/dL (60-100); LDL Cholesterol Calculated 35 mg/dL (50-129); Magnesium 1.5 mg/dL (1.7-2.3); Triglycerides 122 mg/dL (0-150); VLDL Cholestrol Calculation 24 mg/dL (0-30)
[2024-09-14 05:38] LABS: Alanine Aminotransferase 122 U/L (0-33); Albumin Level 2.5 g/dL (3.5-5.2); Alkaline Phosphatase 159 U/L (35-105); Anion Gap 15.2 (5-19); Aspartate Amino Transferase 68 U/L (0-32); Blood Urea Nitrogen 33 mg/dL (8-23); Calcium 8.7 mg/dL (8.5-10.5); Carbon Dioxide 23 mmol/L (22-29); Chloride 100 mmol/L (98-107); Creatinine Clr Calc Pharmacy 28.1483; Globulin 2.4 g/dL (1.3-4.6); Glucose 141 mg/dL (65-115); Osmolality Calculated 290 mOsm/kg (285-295); Potassium 3.2 mmol/L (3.5-5.1); Sodium 135 mmol/L (136-145); Total Bilirubin 0.4 mg/dL (0.15-1.2); Total Protein 4.9 g/dL (6.6-8.7)
[2024-09-14 05:52] LABS: Add RBC Morph Yes; Slide Review Slide Review Perform
[2024-09-14 05:53] LABS: Pathology Refferal No; RBC Morph Comp Yes
[2024-09-14 05:54] LABS: Neutrophils % 77.3 %
[2024-09-14 06:02] LABS: Folate Level > 20.0 ng/mL (4.8-37.3)
[2024-09-14] MEDS: heparin 5,000 unit/mL INJ 1 mL 5000 UNIT SUBCUT ×2 (06:19→20:28)
[2024-09-14] MEDS: morphine 4 mg/mL SDV 1 mL 2 MG IVP ×3 (06:19→19:11)
[2024-09-14] MEDS: cefepime 1,000 mg SDV 1000 MG IV (06:21)
[2024-09-14] MEDS: linezolid 600 mg Tablet PO (06:33)
[2024-09-14 06:35] LABS: Glucose Point of Care 206 mg/dL (70-110)
[2024-09-14] MEDS: fluconazole premix 100 MG in empty flexible container 1 EACH 50 MG IV (06:37)
[2024-09-14] MEDS: clopidogrel 75 mg Tablet PO (08:28)
[2024-09-14] MEDS: pantoprazole 40 mg SDV IVP (08:28)
[2024-09-14] MEDS: insulin lispro 100 unit/1 mL SUBCUT ×3 (08:28→17:11)
[2024-09-14] MEDS: metoprolol succinate ER (24 HR) 50 mg Tablet PO (08:28)
[2024-09-14] MEDS: predniSONE 10 mg Tablet PO (08:28)
[2024-09-14] MEDS: nicotine 21 mg Patch 1 PATCH TRANSDERMA (08:29)
[2024-09-14] MEDS: budesonide 0.5 mg/2 mL Neb INHALATION ×2 (08:42→20:37)
[2024-09-14] MEDS: lidocaine 2% viscous 15 ML, diphenhydrAMINE oral liq 37.5 MG, aluminum-mag hydrox-simet... MUCOUS MEM ×4 (08:54→20:29)
--- NOTE | 2024-09-14 10:06 | P.PN_ITS ---
Subjective 2 Subjective: Overnight patient continued to have pain in the rash in the groin specially during dressing changes. She denies any nausea, vomiting. She is able to intake orally better now. Overnight she has developed new rash on her right shoulder, right thigh and finger. Vitals/I&O/Wt Last Vital Signs Temp 98.6 F 09/13/24 11:48 Pulse 92 09/13/24 11:48 Resp 18 09/13/24 11:48 BP 108/75 09/13/24 11:48 Pulse Ox 90 09/13/24 11:48 O2 Del Method Room Air 09/13/24 11:48 09/12/24 09/13/24 09/13/24 22:59 06:59 14:59 Intake Total 50 / 50 400 / 400 Balance 50 / 50 400 / 400 Weight last 48 hrs Weight 69.4 kg Weight 72.575 kg Physical Exam 2 Narrative: General: No acute distress, AO x3 HEENT: PERRLA, oropharyngeal candidiasis present Chest: Normal vesicular breath sounds, no added sounds, equal good air entry bilaterally. CVS: S1-S2 regular, no murmurs, no tachycardia, no gallops, no rubs Abdomen: Soft, nontender, no organomegaly, bowel sounds present. Bilateral diffuse groin folds with excoriation. Multiple shallow bleeding ulcers noted bilaterally, worse over left side of the abdomen. There is significant crusting overlying which may be residue from diaper rash creams versus discharge from the ulcers. There is signs of cellulitis over the left lower abdomen. Neuro: No focal deficits, no facial deformity, AO x3, power 5/5 in all limbs Extremities. Bleeding shallow ulceration over bilateral breast folds, right worse than left. Erythema involving skin fold between bilateral buttocks. Secretions noted over this area. Skin: OTHER: On admission 09/14 On Right shoulder Data 09/14/24 04:41 09/14/24 04:41 Micro: Microbiology 09/13/24 04:50 Blood Culture - Preliminary Blood SPECIMEN COLLECTED 09/13/24 04:45 Blood Culture - Preliminary Blood SPECIMEN COLLECTED A&P Assessment and plan (1) Candidiasis: (2) Abdominal wall cellulitis: (3) Chronic steroid use: (4) Hyperglycemia: (5) Acute on chronic renal insufficiency: (6) Diabetes mellitus: (7) Acute maculopapular rash: (8) Chronic pain syndrome: Plan 73-year-old female on high-dose steroids for last 1 month with concerns of polymyalgia rheumatica presents with significant bilateral groin folds rash along with cellulitis and decreased oral intake because of odynophagia for last 1 week getting worse over last few days. Rash: Severe candidiasis affecting multiple sites including bilateral groin folds, bilateral breast folds, buttock folds, oropharyngeal candidiasis with possibility of esophageal candidiasis given complaints of odynophagia. Most likely this severity is related to recent steroid use over the past 1 month in addition to having uncontrolled hyperglycemia. Multiple shallow bleeding ulcerations noted over the above areas. Additionally signs of abdominal wall cellulitis particularly over the left lower abdomen. With development of new generalized rash. Patient has started oral fluconazole recently as outpatient without any significant improvement. Most likely presentation in setting of severe candidiasis but given development of new rash, severity of the rash along with oral involvement definitely will have to think about SJS, TN, dress syndrome. Specially patient was started on new methotrexate and hydrochlorothiazide on 09/01. Patient does have transaminitis, renal dysfunction which is mildly worsened than a chronic levels, thrombocytopenia, high normal eosinophils. HIV, hepatus panel negative. A1c appreciated. Follow-up blood cultures. Will consult surgery for skin biopsy both at the groin and maculopapular rash at the shoulder. Will try to request for fungal cultures. Superficial fungal and viral cultures from the groin area. Continue with IV fluconazole. Continue with IV cefepime. MRSA swab negative. Will discontinue linezolid as patient has developed new rash. Odynophagia: Most likely in setting of oral thrush. Continue with Magic mouthwash. Liquid diet. For pain control we will change to oxycodone ER 10 mg twice daily along with oxycodone IR 5 mg every 6 hours as needed. Continue with prednisone 10 mg oral daily for now. If rash worsens or starts having new development of rash all over body will go on higher dose of steroids. Hypoxia: Check chest x-ray. Most likely in setting of mild fluid overload. Stop IV fluids. Oxygen supplementation keeping saturation over 90%. LIZY on CKD: Resolved. Baseline creatinine 1.4-1.8. Stop IV fluids. Monitor renal functions daily. Transaminitis: Continue to monitor. No hyperbilirubinemia. Hepatitis panel negative. Type 2 diabetes mellitus: Uncontrolled recently most likely in setting of high steroid use. Continue with sliding scale before meals and at bedtime. Care discussed in detail with patient and patient's son over the phone. Full code Full liquid diet Heparin for DVT prophylaxis Protonix OPD prophylaxis Attestations 2 Medical Necessity Statement*: Requires further hospitalization for management of severe candidal intertrigo, odynophagia in setting of thrush, transaminitis while other etiologies including dress syndromes are ruled out Diagnoses Candidiasis B37.9 Abdominal wall cellulitis L03.311 Chronic steroid use Hyperglycemia R73.9 Acute on chronic renal insufficiency N28.9; N18.9 Diabetes mellitus E11.9 Acute maculopapular rash R21 Chronic pain syndrome G89.4
[2024-09-14] MEDS: potassium chloride ER 20 mEq Tablet 40 MEQ PO (10:32)
[2024-09-14] MEDS: oxyCODONE 10 mg ER (12 HR) Tablet PO ×2 (10:32→17:11)
[2024-09-14] MEDS: clotrimazole 1% cream 30 gm 1 APPLIC TOPICAL ×2 (10:34→19:10)
[2024-09-14] MEDS: magnesium sulfate premix 1 GM/100 ML PIGGYBACK IV (10:35)
[2024-09-14] MEDS: mupirocin oint 22 gm 1 APPLIC TOPICAL ×2 (10:35→19:10)
[2024-09-14 11:27] LABS: Glucose Point of Care 154 mg/dL (70-110)
--- NOTE | 2024-09-14 12:01 | PM.PN ---
Subjective Subjective: Katerina Orozco is a 73 y.o. female admitted for worsening skin lesions, worst in bilateral inguinal folds, beneath breasts, and buttocks. She also had a bout of oropharyngeal candidiasis that is better today. Her odynophagia is improved and she was able to tolerate breakfast this morning. However, regarding the skin lesions she feels their appearance and pain are relatively unchanged. She does not mention any new concerns. Medications: Reviewed: Yes Vitals/I&O/Wt Last Vital Signs Temp 98.0 F 09/14/24 11:53 Pulse 58 L 09/14/24 11:53 Resp 16 09/14/24 11:53 BP 109/69 09/14/24 11:53 Pulse Ox 95 09/14/24 11:53 O2 Del Method Nasal Cannula 09/14/24 11:53 O2 Flow Rate 3 09/14/24 04:00 09/13/24 09/14/24 09/14/24 22:59 06:59 14:59 Intake Total 1740 / 2140 450 / 2590 272 / 272 Balance 1740 / 2140 450 / 2590 272 / 272 Weight last 48 hrs Weight 157 lb 9.6 oz Weight 153 lb Weight 160 lb Physical Exam Narrative: General: In some visible discomfort. Awake, alert, and oriented. HEENT: PERRLA, oropharyngeal candidiasis present Chest: Normal vesicular breath sounds, no added sounds, equal good air entry bilaterally. CVS: S1-S2 regular, no murmurs, no tachycardia, no gallops, no rubs Abdomen: Soft, nontender, no organomegaly, bowel sounds present. Bilateral diffuse groin folds with excoriation. Multiple shallow bleeding ulcers noted bilaterally, worse over left side of the abdomen. There is significant crusting overlying which may be residue from diaper rash creams versus discharge from the ulcers. There is signs of cellulitis over the left lower abdomen. Neuro: No focal deficits, no facial deformity, AO x3, power 5/5 in all limbs Extremities. Bleeding shallow ulceration over bilateral breast folds, right worse than left. Erythema involving skin fold between bilateral buttocks. Secretions noted over this area. Skin: OTHER: On admission 09/14 On Right shoulder Data 09/14/24 04:41 09/14/24 04:41 Micro: Microbiology 09/13/24 04:50 Blood Culture - Preliminary Blood NEGATIVE TO DATE 09/13/24 04:45 Blood Culture - Preliminary Blood NEGATIVE TO DATE A&P Assessment and plan Plan Severe candidiasis affecting multiple sites including bilateral groin folds, bilateral breast folds, buttock folds, oropharyngeal candidiasis with possibility of esophageal candidiasis given complaints of odynophagia. Most likely this severity is related to recent steroid use over the past 1 month in addition to having uncontrolled hyperglycemia. Multiple shallow bleeding ulcerations noted over the above areas. Additionally signs of abdominal wall cellulitis particularly over the left lower abdomen. Patient has started oral fluconazole recently as outpatient without any significant improvement. Will admit to [facility] Start fluconazole 100 mg IV every 24 hours over the next 10 days. Magic mouthwash to help with mucositis and odynophagia. Local application of clotrimazole and mupirocin over affected sites twice daily. IV antibiotics including cefepime renally dosed and linezolid 600 mg p.o. daily. Check MRSA PCR Most likely severity of symptoms is related to recent steroid use, however given severity recommended to check for underlying immunocompromise, discussed with patient and consented to check HIV and hepatitis screening. Differentials at this time include SJS, dress syndrome however consider these to be less likely given distribution of lesions in the skin folds, no peripheral eosinophilia LIZY on CKD and transaminitis likely related to dehydration given poor p.o. intake related to odynophagia. Saline at 75 cc an hour for a total volume of 1000 cc. Reassess labs with hydration. Lower steroid dose to prednisone 10 mg daily DVT prophylaxis: Heparin 5000 subcutaneous every 12 hours Full code Coding Level of Care Code Acute Code for Chg Tobias
--- NOTE | 2024-09-14 13:32 | XRR_ITS ---
PROCEDURE INFORMATION: Exam: XR Chest Exam date and time: 09/14/2024 1:42 PM Age: 73 years old Clinical indication: Wheezing; Additional info: Hypoxia TECHNIQUE: Imaging protocol: Radiologic exam of the chest. Views: 1 view. COMPARISON: CR (CHEST, ) 08/22/2024 3:23 AM FINDINGS: Airway: Patent Lungs: Calcified granulomas throughout the lungs are benign. Pleural spaces: Unremarkable. No pleural effusion. No pneumothorax. Heart/Mediastinum: Stable large hiatal hernia. Bones/joints: No acute skeletal abnormality or aggressive osseous lesion. XR/XR chest 1V portable [id number] IMPRESSION: No acute findings.
--- NOTE | 2024-09-14 13:48 | P.CONIM_ITS ---
Providers/Reason For Consult 2 Consulting Physician/Specialty*: General Surgery Reason for Consult*: rash in the inguinal folds and below breast. Attending Physician: Anand Kat MD Primary Care Provider: Edvin Casiano MD History of Present Illness History of Present Illness Katerina Orozco is a 73 year old female who was admitted to the hospital with a concern of possible fungal infection of the skin. Patient has a biopsy of rash of bilateral groins that has ulcerated superficial layer of the skin and is causing bleeding. She also has rash below her breast and on the right shoulder. Current to the patient she does not know the cause of this rash but has been worsening over time. Review of Systems 2 General: Reports: 10 or more systems reviewed and unremarkable except in HPI and below Medications/Allergies Home Medications Medication Instructions Recorded Confirmed Last Taken Type albuterol sulfate 90 mcg/actuation 2 puff inhalation Q6H PRN 11/07/19 09/13/24 08/15/24 History aerosol inhaler (Ventolin HFA) Shortness Of Breath Or Wheezing omeprazole 40 mg capsule,delayed 40 mg PO BID 11/07/19 09/13/24 09/11/24 History release budesonide 160 mcg-glycopyr 9 2 inh inhalation BID 08/14/22 09/13/24 09/11/24 History mcg-formot 4.8 mcg/actuation HFA inhaler (Breztri Aerosphere) irbesartan 300 mg tablet 300 mg PO DAILY 08/14/22 09/13/24 09/11/24 History rosuvastatin 40 mg tablet 40 mg PO QPM 08/14/22 09/13/24 09/10/24 History potassium chloride 20 mEq 20 meq PO BID #20 tabs 08/09/24 09/13/24 08/15/24 Rx tablet,extended release clopidogrel 75 mg tablet 75 mg PO DAILY 08/16/24 09/13/24 09/11/24 History ferrous gluconate 324 mg (38 mg 324 mg PO Q48H 08/16/24 09/13/24 09/11/24 History iron) tablet ipratropium 0.5 mg-albuterol 3 mg 3 ml inhalation QID 08/16/24 09/13/24 09/11/24 History (2.5 mg base)/3 mL nebulization soln ondansetron HCl 8 mg tablet 8 mg PO TID PRN Nausea And Vomiting 08/16/24 09/13/24 Unknown History oxycodone 5 mg capsule 5 mg PO Q8H PRN Pain 08/16/24 09/13/24 08/16/24 04:00 History roflumilast 500 mcg tablet 500 mcg PO DAILY 08/16/24 09/13/24 09/11/24 History lorazepam 1 mg tablet 0.5 mg (1/2 x 1 mg) PO BID PRN 08/22/24 09/13/24 Unknown Rx anxiety #14 tabs amlodipine 10 mg tablet 10 mg PO DAILY 09/11/24 09/13/24 09/11/24 History fluconazole 150 mg tablet 150 mg PO Q3D 2 doses #2 tabs 09/11/24 09/13/24 Unknown Rx folic acid 1 mg tablet 1 mg PO DAILY 09/11/24 09/13/24 09/11/24 History hydrochlorothiazide 25 mg tablet 25 mg PO DAILY 09/11/24 09/13/24 09/11/24 History metformin 1,000 mg tablet 1,000 mg PO DAILY #10 tabs 09/11/24 09/13/24 Unknown Rx methotrexate sodium 2.5 mg tablet 2.5 mg PO Q7D 09/11/24 09/13/24 Unknown History metoprolol succinate 50 mg 50 mg PO DAILY 09/11/24 09/13/24 09/11/24 History tablet,extended release 24 hr nystatin 100,000 unit/gram topical 1 applic topical BID #60 grams 09/11/24 09/13/24 Unknown Rx powder nystatin 100,000 unit/gram topical 1 applic topical BID 09/11/24 09/13/24 09/11/24 History powder (Nystop) prednisone 10 mg tablet See Taper PO BID 09/11/24 09/13/24 09/11/24 History quetiapine 50 mg tablet 50 mg PO BID 09/11/24 09/13/24 Unknown History silver (SilvaSorb topical 1 applic topical Q12H PRN wound 09/11/24 09/13/24 Unknown History gel,extended release) dressing Allergies Allergy/AdvReac Type Severity Reaction Status Date / Time codeine Allergy itching Verified 09/13/24 04:34 lamotrigine [From Lamictal] Allergy itching Verified 09/13/24 04:34 NSAIDS (Non-Steroidal Allergy ADR-Gastrointestinal Verified 09/13/24 04:34 Anti-Inflamma Upset Current Medications Generic Name Dose Route Start Last Admin Trade Name Freq PRN Reason Stop Dose Admin Albuterol/Ipratropium 3 ml 09/14/24 02:00 09/14/24 13:22 Ipratropium-Albuterol 3 Ml Neb INHALATION 3 ml Q6H.RESP MARIA R Administration Atorvastatin Calcium 40 mg 09/13/24 18:00 09/13/24 17:04 Atorvastatin 40 Mg Tablet PO 40 mg QPM MARIA R Administration Budesonide 0.5 mg 09/13/24 08:00 09/14/24 08:42 Budesonide 0.5 Mg/2 Ml Neb INHALATION 0.5 mg BID.RESPIRATORY MARIA R Administration Cefepime HCl 1,000 mg 09/14/24 06:00 09/14/24 06:21 Cefepime 1,000 Mg Sdv IV 1,000 mg Q24H MARIA R Administration Protocol Clopidogrel Bisulfate 75 mg 09/13/24 09:00 09/14/24 08:28 Clopidogrel 75 Mg Tablet PO 75 mg DAILY MARIA R Administration Clotrimazole 1 applic 09/13/24 09:00 09/14/24 10:34 Clotrimazole 1% Cream 30 Gm TOPICAL 1 applic BID MARIA R Administration Lidocaine HCl 15 ml/ 0 ml 09/13/24 09:00 09/14/24 08:54 Diphenhydramine HCl 37.5 mg/ MUCOUS MEM 37.5 ml Al Hydrox/Mg Hydrox/ QID MARIA R Administration Simethicone 15 ml Heparin Sodium (Porcine) 5,000 unit 09/13/24 07:15 09/14/24 06:19 Heparin 5,000 Unit/Ml Inj 1 Ml SUBCUT 5,000 unit Q12H MARIA R Administration Fluconazole 100 mg/ N/A 50 mls @ 50 mls/hr 09/14/24 07:00 09/14/24 09:43 IV Infused Q24H MARIA R Infusion Insulin Human Lispro 0 unit 09/13/24 08:00 09/14/24 11:56 Insulin Lispro 100 Unit/1 Ml SUBCUT 4 unit WM&BEDTIME MARIA R Administration Protocol Lidocaine HCl 1 applic 09/13/24 07:15 09/13/24 17:15 Lidocaine 2% Jelly 1 Applic/6 Ml Tube TOPICAL 1 applic PRN PRN Administration PAIN Morphine Sulfate 2 mg 09/13/24 07:15 09/14/24 13:32 Morphine 4 Mg/Ml Sdv 1 Ml IVP 2 mg Q4H PRN Administration SEVERE PAIN Mupirocin 1 applic 09/13/24 09:00 09/14/24 10:35 Mupirocin Oint 22 Gm TOPICAL 1 applic BID MARIA R Administration Nicotine 1 patch 09/13/24 17:15 09/14/24 08:29 Nicotine 21 Mg Patch TRANSDERMA 1 patch DAILY MARIA R Administration Ondansetron HCl 4 mg 09/13/24 07:15 09/13/24 23:39 Ondansetron 2 Mg/Ml Sdv 2 Ml IVP 4 mg Q8H PRN Administration vomiting, or N/V if npo Oxycodone HCl 10 mg 09/14/24 09:40 09/14/24 10:32 Oxycodone 10 Mg Er (12 Hr) Tablet PO 10 mg BID MARIA R Administration Pantoprazole Sodium 40 mg 09/14/24 09:00 09/14/24 08:28 Pantoprazole 40 Mg Sdv IVP 40 mg DAILY MARIA R Administration Prednisone 10 mg 09/13/24 09:00 09/14/24 08:28 Prednisone 10 Mg Tablet PO 10 mg DAILY MARIA R Administration PFSH Acute 2 PFSH: Medical History (Updated 09/14/24 @ 13:52 by Wild Suárez MD) Positive occult stool blood test Resolved. CKD (chronic kidney disease) Acute kidney injury superimposed on CKD Hypertension COPD (chronic obstructive pulmonary disease) Carotid stenosis, bilateral Carpal tunnel syndrome left carpal tunnel release DOS: 09/19/[address] Fernando Type 2 diabetes mellitus Cubital tunnel syndrome cubital tunnel release DOS: 09/19/20 Surgical History History of cholecystectomy H/O cataract removal with insertion of prosthetic lens H/O left wrist surgery Family History Sister Cancer Brother Cancer Hypertension Father Hypertension Denies family history of Diabetes CAD (coronary artery disease) Stroke Social History Smoking and tobacco/nicotine status: former use of tobacco/nicotine Quit status (tobacco/nicotine): has quit using Year quit tobacco: 3 weeks ago Former quit date comment: smoked 1 pack per day x 50 years Alcohol intake: former Year of sobriety/quit date alcohol: 2000 Substance/Drug Use: never Lives independently: Yes Household members: none Housing: House Marital status: Number of children: 3 Pets and animals: Yes Pets & animals: dog(s) Vitals/I&O/Wt Last Vital Signs Temp 98.0 F 09/14/24 11:53 Pulse 96 09/14/24 13:25 Resp 18 09/14/24 13:32 BP 109/69 09/14/24 11:53 Pulse Ox 95 09/14/24 13:22 O2 Del Method Room Air 09/14/24 13:22 O2 Flow Rate 3 09/14/24 04:00 09/13/24 09/14/24 09/14/24 22:59 06:59 14:59 Intake Total 1740 / 2140 450 / 2590 612 / 612 Balance 1740 / 2140 450 / 2590 612 / 612 Weight last 48 hrs Weight 157 lb 9.6 oz Weight 153 lb Weight 160 lb Physical Exam 2 Narrative: There is severe superficial skin irritation at the level of bilateral groins, this level the skin appears raw and the epidermis is compromised, no subcutaneous tissue is visible, there are some superficial bleeding. There is similar rash under bilateral breast. Data 09/14/24 04:41 09/14/24 04:41 Micro: Microbiology 09/13/24 04:50 Blood Culture - Preliminary Blood NEGATIVE TO DATE 09/13/24 04:45 Blood Culture - Preliminary Blood NEGATIVE TO DATE A&P Assessment and plan (1) Intertrigo: (2) Acute maculopapular rash: Plan Current patient symptoms are consistent with the possibility of severe presentation of intertrigo, I agree with primary team decision of continuing mupirocin and antifungal cream, my only additional recommendation is to put Interdry sheets on bilateral groins and below the breast 2-3 times a day to prevent the area from becoming moist. Once fungal infection is under control by keeping the area dry the skin will able to heal. Once fungal infection is under control may consider seeing oxide cream to facilitate healing. Upon request of medical team I will proceed with a skin biopsy tomorrow. Patient was informed of all recent benefits of the skin biopsy and is agreeable to proceed, this will be done at the bedside tomorrow. I discussed with patient the possibility of bleeding infection abscess formation need for additional interventions or poor wound healing and she agrees. Coding Level of Care Code Acute Code for Chg Fwd Diagnoses Intertrigo L30.4 Acute maculopapular rash R21
[2024-09-14 16:19] LABS: Anti-Double Strand DNA AB <1 IU/mL; Jo-1 Antibody <1.0 NEG AI (<1.0 NEG); SS-B/LA IGG <1.0 NEG AI (<1.0 NEG); Scleroderma Ab(Scl-70) Ab <1.0 NEG AI (<1.0 NEG); Ss-A/Ro Igg <1.0 NEG AI (<1.0 NEG)
[2024-09-14 17:07] LABS: Glucose Point of Care 181 mg/dL (70-110)
[2024-09-14] MEDS: atorvastatin 40 mg Tablet PO (17:11)
[2024-09-14 20:25] LABS: Glucose Point of Care 87 mg/dL (70-110)
[2024-09-15] VITALS (20 sets, daily range): BP systolic 95–124; BP diastolic 58–70; PULSE 80–108; RESP 16–18; TEMP 36.6–36.9; O2SAT 79–94
[2024-09-15] MEDS: ipratropium-albuterol 3 mL Neb INHALATION ×4 (02:31→20:53)
[2024-09-15 04:44] LABS: Basophils % 0.1 %; Eosinophils # 0.2 10^3/uL (0.0-0.8); Hematocrit 32.9 % (36-47); Lymphocytes # 1.3 10^3/uL (0.8-4.8); Lymphocytes % 17.7 %; Mean Corpuscular HGB Conc 31.6 g/dL (30-55); Mean Corpuscular Volume 91.6 fl (85-98); Mean Platelet Volume 9.1 fL (7.4-10.4); Monocytes % 0.4 %; Neutrophils # 5.57 10^3/uL (1.8-7.7); Nucleated Red Blood Cells % 0 %; Platelet Count 85 10^3/cmm (157-399); Red Blood Count 3.59 10^6/uL (3.85-5.65); Red Cell Distribution Width 13.5 % (12.1-15.1)
[2024-09-15 05:02] LABS: Alanine Aminotransferase 142 U/L (0-33); Alkaline Phosphatase 184 U/L (35-105); Anion Gap 19.5 (5-19); Aspartate Amino Transferase 95 U/L (0-32); Blood Urea Nitrogen 39 mg/dL (8-23); Calcium 9.3 mg/dL (8.5-10.5); Carbon Dioxide 22 mmol/L (22-29); Chloride 101 mmol/L (98-107); Creatinine Clr Calc Pharmacy 19.1408; Globulin 2.8 g/dL (1.3-4.6); Glucose 121 mg/dL (65-115); Osmolality Calculated 297 mOsm/kg (285-295); Potassium 4.5 mmol/L (3.5-5.1); Sodium 138 mmol/L (136-145); Total Bilirubin 0.5 mg/dL (0.15-1.2); Total Protein 5.8 g/dL (6.6-8.7)
[2024-09-15 05:04] LABS: Slide Review Slide Review Perform
[2024-09-15 05:05] LABS: Add RBC Morph No
[2024-09-15 05:06] LABS: Neutrophils % 78.5 %
[2024-09-15] MEDS: oxyCODONE 5 mg IR Tab/Cap PO ×2 (05:23→22:44)
[2024-09-15] MEDS: cefepime 1,000 mg SDV 1000 MG IV (05:23)
[2024-09-15 06:32] LABS: Glucose Point of Care 135 mg/dL (70-110)
[2024-09-15] MEDS: morphine 4 mg/mL SDV 1 mL 2 MG IVP ×2 (07:02→19:39)
[2024-09-15] MEDS: LORazepam 2 mg/mL INJ 1 mL 0.5 MG IVP (07:03)
[2024-09-15] MEDS: heparin 5,000 unit/mL INJ 1 mL 5000 UNIT SUBCUT ×2 (07:04→17:20)
[2024-09-15] MEDS: budesonide 0.5 mg/2 mL Neb INHALATION ×2 (08:23→20:53)
[2024-09-15] MEDS: clotrimazole 1% cream 30 gm 1 APPLIC TOPICAL (09:10)
[2024-09-15] MEDS: lidocaine 2% jelly 1 APPLIC/6 ML TUBE TOPICAL (09:10)
[2024-09-15] MEDS: oxyCODONE 10 mg ER (12 HR) Tablet PO ×2 (09:11→17:19)
[2024-09-15] MEDS: pantoprazole 40 mg SDV IVP (09:11)
[2024-09-15] MEDS: nicotine 21 mg Patch 1 PATCH TRANSDERMA (09:11)
[2024-09-15] MEDS: fluconazole premix 100 MG in empty flexible container 1 EACH 50 MG IV (09:11)
[2024-09-15] MEDS: mupirocin oint 22 gm 1 APPLIC TOPICAL ×2 (09:11→22:44)
[2024-09-15] MEDS: clopidogrel 75 mg Tablet PO (09:12)
[2024-09-15] MEDS: predniSONE 10 mg Tablet PO (09:12)
[2024-09-15] MEDS: lidocaine-epi 1% PF 1:200,000 30 mL SDV INJECTION (09:12)
[2024-09-15] MEDS: lidocaine 2% viscous 15 ML, diphenhydrAMINE oral liq 37.5 MG, aluminum-mag hydrox-simet... MUCOUS MEM ×4 (09:16→19:39)
--- NOTE | 2024-09-15 09:34 | PM.ACPR ---
Procedure/Consent Time out: Time Out Performed: Yes Consent: Consent for Procedure: Consent obtained from patient Procedure Narrative: After consent was obtained from the patient a timeout was conducted, the left lower abdomen and groin region was prepped and draped in usual sterile fashion. Local anesthesia was infiltrated in the areas where skin biopsies were going to be obtained. I then proceeded to use a 4 mm punch biopsy to obtain 2 punch biopsies in the left lower abdominal wall and also 2 additional punch biopsies in the left groin, the punch biopsies were excised with the sister and placed in formalin to be sent to pathology. Hemostasis was achieved with pressure and I proceeded to close the wounds with #3-0 Vicryl subcutaneous sutures. Dermabond was then applied. At the end of the procedure patient tolerated well and remained in the medical unit in stable condition. Acute Procedures Epistaxis Control: Time out performed: Yes
--- NOTE | 2024-09-15 09:36 | PM.PN ---
Subjective Subjective: Patient with slight improvement on her wounds still complain of severe pain especially due to the wounds in the groins. Vitals/I&O/Wt Last Vital Signs Temp 98.4 F 09/15/24 07:56 Pulse 89 09/15/24 08:28 Resp 16 09/15/24 08:00 BP 95/60 09/15/24 07:56 Pulse Ox 92 09/15/24 08:00 O2 Del Method Room Air 09/15/24 08:00 O2 Flow Rate 2 09/15/24 02:34 09/14/24 09/15/24 09/15/24 22:59 06:59 14:59 Intake Total 240 / 852 500 / 1352 60 / 60 Balance 240 / 852 500 / 1352 60 / 60 Weight last 48 hrs Weight 157 lb Weight 157 lb 9.6 oz Physical Exam Skin: NARRATIVE SKIN EXAM: There is several areas over the body with erythema and macules, most important areas is in bilateral groins, these are consistent with possibility of intertrigo, there is very raw skin causing bleeding. Data 09/15/24 04:19 09/15/24 04:19 Micro: Microbiology 09/13/24 04:50 Blood Culture - Preliminary Blood NEGATIVE TO DATE 09/13/24 04:45 Blood Culture - Preliminary Blood NEGATIVE TO DATE A&P Assessment and plan (1) Abdominal wall cellulitis: (2) Candidiasis: Plan Patient is a stable, I evaluated his wounds. Bilateral groin wounds are stable there are several areas of raw skin with ulceration of the epithelium causing bleeding, I think at this point these areas are acting more as a chemical wound that traditional intertrigo, therefore I have asked the medical team to proceed with wound care with antibiotic and antifungal cream and on top of that to put Xeroform to prevent the skin to get adhered to the dressing over the Xeroform Interdry can be placed to prevent excessive moisture. I think patient will probably benefit from a dermatology evaluation as they may able to provide more insight regarding the management of this skin condition. Skin biopsies were taken today and results will be pending. I will continue to evaluate on a daily basis to ensure adequate progression of wound healing. Attestations Medical Necessity Statement*: Per medical team Coding Level of Care Code Acute Code for [facility] Fwd Diagnoses Abdominal wall cellulitis L03.311 Candidiasis B37.9
--- NOTE | 2024-09-15 09:59 | PC.NURSE ---
Dr. Suárez takes skin biopsies from two different sites on pts left abdomen. Specimens sent to pathology. Dr. Suárez places one stitch in each site, and covers with dermbond. This nurse and aide clean pt's abdominal/groin folds, and under breasts with soap and water. Creams applied. Per Dr. Suárez, xeroform dressings applied over abdominal fold skin breakdown. Interdry applied to groing area and under breasts.
--- NOTE | 2024-09-15 10:34 | USR_ITS ---
PROCEDURE INFORMATION: Exam: US Abdomen, Limited; Right Upper Quadrant Exam date and time: 09/15/2024 10:55 AM Age: 73 years old Clinical indication: Abnormal findings; Abnormal lab test; Elevated liver enzymes; Prior surgery; Surgery date: 6+ months; Surgery type: Cholecystectomy; Additional info: Transaminitis TECHNIQUE: Imaging protocol: Real time ultrasound of the abdomen with image documentation. Limited exam focused on the right upper quadrant. COMPARISON: US abdomen limited [id number] 03/06/2020 7:56 AM FINDINGS: Liver: There is a slightly nodular contour to the liver which also has a somewhat coarsened echotexture. Findings are suspicious for cirrhosis. No focal liver masses identified. No intrahepatic biliary ductal dilatation is noted. Gallbladder: The gallbladder is surgically absent. Biliary ducts: Normal. No stones. No dilation. The common bile duct measures 5 mm in size. Pancreas: The pancreas is poorly seen secondary to overlying bowel gas. Right kidney: The right kidney measures 7.9 cm in length. There is a benign-appearing cyst measuring 2 cm in size. No hydronephrosis is noted. Cortical echogenicity is increased suspicious for medical renal disease. US/US liver [id number] IMPRESSION: 1. Gallbladder is surgically absent. 2. Slightly nodular contour to the liver which has a coarsened echotexture. Findings suspicious for cirrhosis. 3. Somewhat small right kidney which appears to be echogenic suspicious for medical renal disease.
[2024-09-15 10:48] LABS: Glucose Point of Care 174 mg/dL (70-110)
[2024-09-15] MEDS: insulin lispro 100 unit/1 mL SUBCUT ×3 (11:24→23:12)
--- NOTE | 2024-09-15 12:37 | P.PN_ITS ---
Subjective 2 Subjective: No acute events overnight. Patient seen with family at bedside. Patient states she is feeling a lot better today. Sitting up at the edge of the bed today. States pain is better controlled. Rash less angry appearing. Does complain of itching all over her body. Vitals/I&O/Wt Last Vital Signs Temp 98.0 F 09/15/24 11:36 Pulse 93 09/15/24 11:36 Resp 16 09/15/24 11:36 BP 116/58 09/15/24 11:36 Pulse Ox 94 09/15/24 11:36 O2 Del Method Nasal Cannula 09/15/24 11:36 O2 Flow Rate 2 09/15/24 02:34 09/14/24 09/15/24 09/15/24 22:59 06:59 14:59 Intake Total 240 / 852 500 / 1352 350 / 350 Balance 240 / 852 500 / 1352 350 / 350 Weight last 48 hrs Weight 71.214 kg Weight 71.486 kg Physical Exam 2 Narrative: General: No acute distress, AO x3 HEENT: PERRLA, oropharyngeal candidiasis present Chest: Normal vesicular breath sounds, no added sounds, equal good air entry bilaterally. CVS: S1-S2 regular, no murmurs, no tachycardia, no gallops, no rubs Abdomen: Soft, nontender, no organomegaly, bowel sounds present. Bilateral diffuse groin folds with excoriation. Multiple shallow bleeding ulcers noted bilaterally, worse over left side of the abdomen. There is significant crusting overlying which may be residue from diaper rash creams versus discharge from the ulcers. There is signs of cellulitis over the left lower abdomen. Neuro: No focal deficits, no facial deformity, AO x3, power 5/5 in all limbs Extremities. Bleeding shallow ulceration over bilateral breast folds, right worse than left. Erythema involving skin fold between bilateral buttocks. Secretions noted over this area. Data 09/15/24 04:19 09/15/24 04:19 A&P Assessment and plan (1) Candidiasis: (2) Abdominal wall cellulitis: (3) Chronic steroid use: (4) Hyperglycemia: (5) Acute on chronic renal insufficiency: (6) Diabetes mellitus: (7) Acute maculopapular rash: (8) Chronic pain syndrome: Plan 73-year-old female on high-dose steroids for last 1 month with concerns of polymyalgia rheumatica presents with significant bilateral groin folds rash along with cellulitis and decreased oral intake because of odynophagia for last 1 week getting worse over last few days. Rash: Severe candidiasis affecting multiple sites including bilateral groin folds, bilateral breast folds, buttock folds, oropharyngeal candidiasis with possibility of esophageal candidiasis given complaints of odynophagia. Most likely this severity is related to recent steroid use over the past 1 month in addition to having uncontrolled hyperglycemia. Multiple shallow bleeding ulcerations noted over the above areas. Additionally signs of abdominal wall cellulitis particularly over the left lower abdomen. With development of new generalized rash. Patient has started oral fluconazole recently as outpatient without any significant improvement. Most likely presentation in setting of severe candidiasis but given development of new rash, severity of the rash along with oral involvement definitely will have to think about SJS, TN, dress syndrome. Specially patient was started on new methotrexate and hydrochlorothiazide on 09/01. Patient does have transaminitis, renal dysfunction which is mildly worsened than a chronic levels, thrombocytopenia, high normal eosinophils. HIV, hepatus panel negative. A1c appreciated. Follow-up blood cultures. Underwent skin biopsy from the groin and abdominal wall area on 09/15. Will request further biopsy from the rash on shoulder or back. Superficial fungal and viral cultures from the groin area. Continue with IV fluconazole. Change as per creatinine clearance. Continue with IV cefepime. MRSA swab negative. Will discontinue linezolid as patient has developed new rash. Odynophagia: Most likely in setting of oral thrush. Continue with Magic mouthwash. Liquid diet. For pain control we will change to oxycodone ER 10 mg twice daily along with oxycodone IR 5 mg every 6 hours as needed. Continue with prednisone 10 mg oral daily for now. If rash worsens or starts having new development of rash all over body will go on higher dose of steroids. Hypoxia: Check chest x-ray. Appreciate chest x-ray. Oxygen supplementation keeping saturation over 90%. LIZY on CKD: Creatinine worsening today. Most likely in setting of recent CTA, home use of ARB, new hydrochlorothiazide along with methotrexate. Baseline creatinine 1.4-1.8. Repeat BMP in afternoon. Monitor electrolytes. Check urine lites, urine creatinine and eosinophils. Monitor renal functions daily. Transaminitis: Slight worsening today. Continue to monitor. Check liver ultrasound. Hepatitis panel negative. Type 2 diabetes mellitus: Uncontrolled recently most likely in setting of high steroid use. Better control now. Continue with sliding scale before meals and at bedtime. Hypoglycemia protocol. Care discussed in detail with patient and patient's son over the phone. Full code Full liquid diet Heparin for DVT prophylaxis Protonix OPD prophylaxis Attestations 2 Medical Necessity Statement*: Requires further hospitalization for management of severe generalized rash in setting of interitigo, odynophagia, LIZY and CKD while other etiologies are ruled out Diagnoses Candidiasis B37.9 Abdominal wall cellulitis L03.311 Chronic steroid use Hyperglycemia R73.9 Acute on chronic renal insufficiency N28.9; N18.9 Diabetes mellitus E11.9 Acute maculopapular rash R21 Chronic pain syndrome G89.4
--- NOTE | 2024-09-15 13:34 | PC.NURSE ---
1145-Pt on room air with sats 79%. Placed back on 1LNC-sats quickly recover to 96%
[2024-09-15 15:14] LABS: Anion Gap 17.3 (5-19); Blood Urea Nitrogen 39 mg/dL (8-23); Calcium 8.7 mg/dL (8.5-10.5); Carbon Dioxide 22 mmol/L (22-29); Chloride 101 mmol/L (98-107); Glucose 148 mg/dL (65-115); Osmolality Calculated 294 mOsm/kg (285-295); Potassium 4.3 mmol/L (3.5-5.1); Sodium 136 mmol/L (136-145)
[2024-09-15 17:13] LABS: Glucose Point of Care 278 mg/dL (70-110)
[2024-09-15] MEDS: atorvastatin 40 mg Tablet PO (17:19)
[2024-09-15 20:56] LABS: Glucose Point of Care 177 mg/dL (70-110)
--- NOTE | 2024-09-15 22:56 | PC.NURSE ---
Lotrimin cream and lidocaine cream not available in any Pyxis and needed for wound care/ordered for 2100. Medication bottles from previous dose at bedside did not have enough medication in them to cover the entire area of the wound. Pharmacy not in house at this time.
[2024-09-15 23:02] LABS: Glucose Point of Care 244 mg/dL (70-110)
[2024-09-16] VITALS (20 sets, daily range): BP systolic 102–132; BP diastolic 59–86; PULSE 78–116; RESP 16–90; TEMP 36.6–36.9; O2SAT 84–96
[2024-09-16] MEDS: LORazepam 2 mg/mL INJ 1 mL 0.5 MG IVP ×2 (01:35→17:21)
[2024-09-16] MEDS: morphine 4 mg/mL SDV 1 mL 2 MG IVP ×4 (01:36→20:26)
[2024-09-16] MEDS: ipratropium-albuterol 3 mL Neb INHALATION ×4 (02:47→21:01)
--- NOTE | 2024-09-16 03:24 | PC.NURSE ---
Addendum entered by Ines Serna RN 09/16/24 05:15: Magic mouthwash changed from QID to q6h. Original Note: This nurse asked Dr. Maguire if patient can have something such as Benadryl to help with itching. Awaiting response.
[2024-09-16 04:56] LABS: Basophils % 0.3 %; Eosinophils # 0.1 10^3/uL (0.0-0.8); Eosinophils % 2.5 %; Hematocrit 29.9 % (36-47); Lymphocytes # 0.9 10^3/uL (0.8-4.8); Lymphocytes % 21.9 %; Mean Corpuscular HGB Conc 31.1 g/dL (30-55); Mean Corpuscular Hemoglobin 28.6 pg (27-33); Mean Platelet Volume 9.9 fL (7.4-10.4); Monocytes % 0.8 %; Neutrophils # 2.91 10^3/uL (1.8-7.7); Nucleated Red Blood Cells % 0 %; Platelet Count 40 10^3/cmm (157-399); Red Blood Count 3.25 10^6/uL (3.85-5.65); Red Cell Distribution Width 13.6 % (12.1-15.1); White Blood Count 3.93 10^3/uL (3.29-11.43)
[2024-09-16 05:19] LABS: Alanine Aminotransferase 202 U/L (0-33); Albumin Level 2.8 g/dL (3.5-5.2); Alkaline Phosphatase 164 U/L (35-105); Anion Gap 16.9 (5-19); Aspartate Amino Transferase 172 U/L (0-32); Blood Urea Nitrogen 46 mg/dL (8-23); Calcium 8.9 mg/dL (8.5-10.5); Carbon Dioxide 25 mmol/L (22-29); Chloride 100 mmol/L (98-107); Creatinine Clr Calc Pharmacy 17.6916; Globulin 2.7 g/dL (1.3-4.6); Glucose 103 mg/dL (65-115); Osmolality Calculated 298 mOsm/kg (285-295); Potassium 3.9 mmol/L (3.5-5.1); Sodium 138 mmol/L (136-145); Total Bilirubin 0.3 mg/dL (0.15-1.2); Total Protein 5.5 g/dL (6.6-8.7)
[2024-09-16 05:21] LABS: Magnesium 2.2 mg/dL (1.7-2.3)
[2024-09-16] MEDS: cefepime 1,000 mg SDV 1000 MG IV (05:29)
[2024-09-16] MEDS: oxyCODONE 5 mg IR Tab/Cap PO ×3 (05:29→22:21)
[2024-09-16] MEDS: lidocaine 2% viscous 15 ML, diphenhydrAMINE oral liq 37.5 MG, aluminum-mag hydrox-simet... MUCOUS MEM ×4 (05:42→22:22)
[2024-09-16 06:25] LABS: Glucose Point of Care 169 mg/dL (70-110)
[2024-09-16] MEDS: budesonide 0.5 mg/2 mL Neb INHALATION ×2 (08:05→21:02)
[2024-09-16] MEDS: insulin lispro 100 unit/1 mL SUBCUT ×4 (09:25→21:41)
[2024-09-16] MEDS: nicotine 21 mg Patch 1 PATCH TRANSDERMA (09:26)
[2024-09-16] MEDS: pantoprazole 40 mg SDV IVP (09:26)
[2024-09-16] MEDS: oxyCODONE 10 mg ER (12 HR) Tablet PO ×2 (09:26→17:23)
[2024-09-16] MEDS: predniSONE 10 mg Tablet PO (09:26)
[2024-09-16] MEDS: clotrimazole 1% cream 30 gm 1 APPLIC TOPICAL ×2 (09:27→20:25)
[2024-09-16] MEDS: lidocaine 2% jelly 1 APPLIC/6 ML TUBE TOPICAL (09:27)
[2024-09-16] MEDS: metoprolol succinate ER (24 HR) 50 mg Tablet 25 MG PO (09:27)
[2024-09-16] MEDS: mupirocin oint 22 gm 1 APPLIC TOPICAL ×2 (09:29→20:25)
--- NOTE | 2024-09-16 09:52 | PC.SOCIAL ---
IMM Update pg 2 of IMM Updated and reviewed w/ patient and copy provided and copy dated, initialed and placed in chart.
[2024-09-16] MEDS: fluconazole premix 100 MG in empty flexible container 1 EACH 50 MG IV (09:55)
[2024-09-16] MEDS: clopidogrel 75 mg Tablet PO (10:27)
[2024-09-16 10:43] LABS: LAB Peripheral Smear Sent for Review
[2024-09-16 10:52] LABS: Glucose Point of Care 207 mg/dL (70-110)
--- NOTE | 2024-09-16 11:34 | P.PN_ITS ---
Subjective 2 Subjective: No acute events overnight. Patient seen with family at bedside. Patient states she is feeling a lot better today. Sitting up at the edge of the bed today. States pain is better controlled. Rash less angry appearing. Does complain of itching all over her body. Medications: Reviewed: Yes Vitals/I&O/Wt Last Vital Signs Temp 98.0 F 09/16/24 11:14 Pulse 108 H 09/16/24 11:14 Resp 16 09/16/24 11:14 BP 106/67 09/16/24 11:14 Pulse Ox 92 09/16/24 11:14 O2 Del Method Room Air, Nasal Cannula 09/16/24 11:14 O2 Flow Rate 2 09/15/24 13:29 09/15/24 09/16/24 09/16/24 22:59 06:59 14:59 Intake Total 240 / 710 236 / 236 Output Total 100 / 500 600 / 1100 Balance 140 / 210 -600 / -390 236 / 236 Weight last 48 hrs Weight 71.214 kg Weight 71.214 kg Physical Exam 2 Narrative: General: No acute distress, AO x3 HEENT: PERRLA, oropharyngeal candidiasis present Chest: Normal vesicular breath sounds, no added sounds, equal good air entry bilaterally. CVS: S1-S2 regular, no murmurs, no tachycardia, no gallops, no rubs Abdomen: Soft, nontender, no organomegaly, bowel sounds present. Bilateral diffuse groin folds with excoriation. Multiple shallow bleeding ulcers noted bilaterally, worse over left side of the abdomen. There is significant crusting overlying which may be residue from diaper rash creams versus discharge from the ulcers. There is signs of cellulitis over the left lower abdomen. Neuro: No focal deficits, no facial deformity, AO x3, power 5/5 in all limbs Extremities. Bleeding shallow ulceration over bilateral breast folds, right worse than left. Erythema involving skin fold between bilateral buttocks. Secretions noted over this area. Skin: OTHER: On admission 09/16 Right thigh Data 09/16/24 04:37 09/16/24 04:37 A&P Assessment and plan (1) Candidiasis: (2) Abdominal wall cellulitis: (3) Chronic steroid use: (4) Hyperglycemia: (5) Acute on chronic renal insufficiency: (6) Diabetes mellitus: (7) Acute maculopapular rash: (8) Chronic pain syndrome: (9) Thrombocytopenia: Plan 73-year-old female on high-dose steroids for last 1 month with concerns of polymyalgia rheumatica presents with significant bilateral groin folds rash along with cellulitis and decreased oral intake because of odynophagia for last 1 week getting worse over last few days. Rash: Severe candidiasis affecting multiple sites including bilateral groin folds, bilateral breast folds, buttock folds, oropharyngeal candidiasis with possibility of esophageal candidiasis given complaints of odynophagia. Most likely this severity is related to recent steroid use over the past 1 month in addition to having uncontrolled hyperglycemia. Multiple shallow bleeding ulcerations noted over the above areas. Additionally signs of abdominal wall cellulitis particularly over the left lower abdomen. With development of new generalized rash. Patient has started oral fluconazole recently as outpatient without any significant improvement. Most likely presentation in setting of severe candidiasis but given development of new rash, severity of the rash along with oral involvement definitely will have to think about SJS, TEN, dress syndrome. Specially patient was started on new methotrexate and hydrochlorothiazide on 09/01. Patient does have transaminitis, renal dysfunction which is mildly worsened than a chronic levels, thrombocytopenia, high normal eosinophils. HIV, hepatitis panel negative. A1c appreciated. Follow-up blood cultures. Underwent skin biopsy from the groin and abdominal wall area on 09/15. Underwent further skin biopsy from shoulder and thigh region on 09/16. Pathology and culture sent. Check HSV viral PCR from the rash in groin, HSV antibody Superficial fungal and viral cultures from the groin area. Patient developing worsening of renal function, transaminitis, thrombocytopenia though eosinophils remained stable. Patient is already on low-dose steroid. 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 Follow-up pathology reports. Have already stopped offending agents including methotrexate and hydrochlorothiazide. Will also stop fluconazole and switch to micafungin. Linezolid stopped. Continue with IV cefepime. Start on high-dose steroids with hydrocortisone 100 mg every 8 hourly which is going to be equal to prednisone 1 mg/kg body weight daily. Given high-dose steroids will monitor blood sugars closely. If needed will change insulin every 4 hours. Odynophagia: Most likely in setting of oral thrush. Continue with Magic mouthwash. Liquid diet. For pain control we will change to oxycodone ER 10 mg twice daily along with oxycodone IR 5 mg every 6 hours as needed. Add hydroxyzine for itching. Thrombocytopenia: Baseline platelet count normal. On presentation down to 150s. Currently 40 today. Treatment possibly as above. Check HIT panel. Hold off on heparin. Hypoxia: Check chest x-ray. Appreciate chest x-ray. Oxygen supplementation keeping saturation over 90%. LIZY on CKD: Creatinine worsening today. Most likely in setting of recent CTA, home use of ARB, new hydrochlorothiazide along with methotrexate. Baseline creatinine 1.4-1.8. Monitor BMP and electrolytes daily. Recheck urine lites, urine creatinine and eosinophils. Monitor renal functions daily. Transaminitis: Slight worsening today. Continue to monitor. Liver ultrasound nodular contour. Hepatitis panel negative. Type 2 diabetes mellitus: Uncontrolled recently most likely in setting of high steroid use. Better control now. Continue with sliding scale before meals and at bedtime. Hypoglycemia protocol. Given worsening of renal function, transaminitis, thrombocytopenia, mild hypoxia for now will check CT abd/pelvis, chest w/o contrast. Care discussed in detail with patient and patient's son at bedside. All the questions were answered. Full code Full liquid diet SCD for DVT prophylaxis. Holding off on medical prophylaxis patient developing thrombocytopenia Protonix OPD prophylaxis Attestations 2 Medical Necessity Statement*: Requires further hospitalization for management of severe maculopapular rash with cellulitis, severe candidiasis, oral thrush with odynophagia with worsening renal and liver functions, thrombocytopenia while other etiologies are ruled out Diagnoses Candidiasis B37.9 Abdominal wall cellulitis L03.311 Chronic steroid use Hyperglycemia R73.9 Acute on chronic renal insufficiency N28.9; N18.9 Diabetes mellitus E11.9 Acute maculopapular rash R21 Chronic pain syndrome G89.4 Thrombocytopenia D69.6
[2024-09-16] MEDS: lidocaine-epi 1% 20 mL INJ INJECTION (11:55)
[2024-09-16] MEDS: hyDROXYzine 25 mg Capsule PO ×2 (11:56→17:24)
[2024-09-16] MEDS: hydrocortisone 100 mg/2 mL SDV IVP ×2 (12:07→20:25)
--- NOTE | 2024-09-16 12:28 | PM.ACPR ---
Procedure/Consent Time out: Time Out Performed: Yes Consent: Consent for Procedure: Consent obtained from patient Procedure Narrative: After the consent was obtained and a timeout was performed I proceeded to prep and drape the right tight and right shoulder in the areas where the rash was noted. I then proceeded to infiltrate local anesthesia in both areas, I then placed my attention to the right tight, I took to 4 mm punch biopsy bites from the area of interest, the skin circles were removed from the subcutaneous tissue with scissor one of the skin circles were sent for culture the second 1 was sent for pathology. The wound was closed with #3-0 Vicryl in the subcutaneous layer. Hemostasis was confirmed before evaluating the shoulder. In the shoulder right 2 to 4 mm punch biopsies in the area of interest, this punch biopsies were excised from the subcutaneous tissue with a scissor and sent both for pathology. The wound was closed with #3-0 Vicryl and hemostasis was verified. I then applied Dermabond on the shoulder and also on the right tight. Patient tolerated the procedure well and remained in the medical floor in stable condition. Acute Procedures Epistaxis Control: Time out performed: Yes
--- NOTE | 2024-09-16 12:32 | PM.PN ---
Subjective Subjective: Patient is stable, continues to have significant pain and ulceration of the skin in bilateral groins. Has noticed to have worsening of the rash at the level of the shoulder and right thigh. I was requested to obtain new samples from these areas. Vitals/I&O/Wt Last Vital Signs Temp 98.0 F 09/16/24 11:14 Pulse 108 H 09/16/24 11:14 Resp 16 09/16/24 11:14 BP 106/67 09/16/24 11:14 Pulse Ox 92 09/16/24 11:14 O2 Del Method Room Air, Nasal Cannula 09/16/24 11:14 O2 Flow Rate 2 09/15/24 13:29 09/15/24 09/16/24 09/16/24 22:59 06:59 14:59 Intake Total 240 / 710 236 / 236 Output Total 100 / 500 600 / 1100 Balance 140 / 210 -600 / -390 236 / 236 Weight last 48 hrs Weight 157 lb Weight 157 lb Physical Exam Narrative: No significant changes in examination in the last 24 hours. In the right shoulder there is a area of erythema of about 5 x 2 cm with a central scabbing. In the right thigh there is a 2 x 1 cm area of erythema with central scabbing. Data 09/16/24 04:37 09/16/24 04:37 A&P Assessment and plan (1) Candidiasis: (2) Abdominal wall cellulitis: (3) Intertrigo: (4) Yeast infection of the skin: Plan Will continue current wound care with antifungal and mupirocin cream followed by Xeroform in the folds and Interdry to maintain separation of the falls. I will proceed with a skin biopsy at the bedside, all other management per primary team. Attestations Medical Necessity Statement*: Per medical team Coding Level of Care Code Acute Code for [facility] Fwd Diagnoses Candidiasis B37.9 Abdominal wall cellulitis L03.311 Intertrigo L30.4 Yeast infection of the skin B37.2
[2024-09-16] MEDS: micafungin 100 MG in sodium chloride 0.9% (100 ml) 100 ML IV (12:34)
--- NOTE | 2024-09-16 15:36 | CTR_ITS ---
PROCEDURE INFORMATION: Exam: CT Chest Without Contrast; Diagnostic Exam date and time: 09/16/2024 5:56 PM Age: 73 years old Clinical indication: Other: Negrito/transaminitis; Shortness of breath; Prior surgery; Surgery date: 6+ months; Surgery type: Gb; Patient HX: Hypoxia with negrito and transaminitis. History of copd. ; Additional info: Negrito, transaminitis, generalized rash, hypoxia TECHNIQUE: Imaging protocol: Diagnostic computed tomography of the chest without contrast. Radiation optimization: All CT scans at this facility use at least one of these dose optimization techniques: automated exposure control; mA and/or kV adjustment per patient size (includes targeted exams where dose is matched to clinical indication); or iterative reconstruction. COMPARISON: CT angio chest [id number] 03/14/2021 2:41 PM RADIATION DOSE METRICS: Total DLP (mGy-cm): 769.98 FINDINGS: Lungs: There are emphysematous changes in the lungs. There are scattered ground-glass opacities in the right upper and middle lobes. There are pulmonary parenchymal calcifications consistent with remote granulomatous organism exposure. Pleural spaces: Unremarkable. No pneumothorax. No pleural effusion. Heart: Unremarkable. No cardiomegaly. No pericardial effusion. Coronary arteries: Multivessel atherosclerotic disease which involves the coronary arteries. Esophagus: There is complex fluid in the esophagus consistent with reflux. Lymph nodes: There are calcified mediastinal and perihilar lymph nodes consistent with prior granulomatous exposure. Vasculature: Unremarkable. No aortic aneurysm. Diaphragm: Moderate-sized hiatal hernia. Bones/joints: Unremarkable. No acute fracture. Soft tissues: Unremarkable. COMMENTS: The presence of pulmonary emphysema on CT is an independent risk factor for lung cancer. In the absence of a history or active diagnosis of lung cancer, it is recommended that this patient with emphysema be evaluated for enrollment in a low dose CT lung cancer screening program. PROCEDURE INFORMATION: Exam: CT Abdomen And Pelvis Without Contrast Exam date and time: 09/16/2024 5:56 PM Age: 73 years old Clinical indication: Other: Negrito/transaminitis; Shortness of breath; Prior surgery; Surgery date: 6+ months; Surgery type: Gb; Patient HX: Hypoxia with negrito and transaminitis. History of copd. ; Additional info: Negrito, transaminitis, generalized rash, hypoxia TECHNIQUE: Imaging protocol: Computed tomography of the abdomen and pelvis without contrast. Radiation optimization: All CT scans at this facility use at least one of these dose optimization techniques: automated exposure control; mA and/or kV adjustment per patient size (includes targeted exams where dose is matched to clinical indication); or iterative reconstruction. COMPARISON: [place] bone scan whole body* [id number] 12/19/2019 7:59 AM RADIATION DOSE METRICS: Total DLP (mGy-cm): 769.98 FINDINGS: Coronary arteries: Multivessel atherosclerotic disease which involves the coronary arteries. Liver: Normal. No mass. Gallbladder and biliary ducts: The gallbladder has been removed. Pancreas: Normal. No ductal dilation. Spleen: Normal. No splenomegaly. Adrenal glands: Normal. No mass. Kidneys and ureters: Bilateral renal cysts have benign features the larger of which measures 2.5 cm in the transverse dimension of the lateral aspect of the right kidney. Stomach and bowel: There is diverticulosis of the colon without evidence of diverticulitis. Moderate stool burden. Appendix: No evidence of appendicitis. Intraperitoneal space: Unremarkable. No free air. No significant fluid collection. Vasculature: Unremarkable. No abdominal aortic aneurysm. Lymph nodes: Unremarkable. No enlarged lymph nodes. Urinary bladder: Unremarkable as visualized. Reproductive: Unremarkable as visualized. Bones/joints: Unremarkable. No acute fracture. Soft tissues: Unremarkable. CT/[place] [id number] IMPRESSION: 1. Scattered right upper and middle lobe ground-glass opacities are nonspecific and can be seen with pneumonia and/or pulmonary edema. 2. Pulmonary emphysema. 3. Multivessel atherosclerotic disease which involves the coronary arteries. 4. Moderate-sized hiatal hernia. 5. There is complex fluid in the esophagus consistent with reflux. IMPRESSION: No acute findings.Non acute findings as described above.
[2024-09-16 17:11] LABS: Glucose Point of Care 292 mg/dL (70-110)
[2024-09-16] MEDS: atorvastatin 40 mg Tablet PO (17:23)
[2024-09-16 20:53] LABS: Glucose Point of Care 244 mg/dL (70-110)
[2024-09-17] VITALS (17 sets, daily range): BP systolic 108–189; BP diastolic 67–81; PULSE 82–104; RESP 15–20; TEMP 36.4–37.1; O2SAT 90–98
[2024-09-17] MEDS: ipratropium-albuterol 3 mL Neb INHALATION ×4 (02:25→20:31)
[2024-09-17] MEDS: hydrocortisone 100 mg/2 mL SDV IVP ×3 (03:24→20:51)
[2024-09-17] MEDS: hyDROXYzine 25 mg Capsule PO ×3 (03:24→21:05)
[2024-09-17] MEDS: lidocaine 2% viscous 15 ML, diphenhydrAMINE oral liq 37.5 MG, aluminum-mag hydrox-simet... MUCOUS MEM ×4 (05:29→23:24)
[2024-09-17] MEDS: cefepime 1,000 mg SDV 1000 MG IV (05:31)
[2024-09-17] MEDS: LORazepam 2 mg/mL INJ 1 mL 0.5 MG IVP (06:08)
--- NOTE | 2024-09-17 06:12 | PC.NURSE ---
Patient is visibly upset and crying this morning. She states she is scared and wants someone to be with her. Patient called her son to come in so she could calm down.
[2024-09-17 07:08] LABS: Glucose Point of Care 164 mg/dL (70-110)
[2024-09-17] MEDS: insulin lispro 100 unit/1 mL SUBCUT ×4 (08:22→20:52)
[2024-09-17] MEDS: morphine 4 mg/mL SDV 1 mL 2 MG IVP ×3 (08:23→21:19)
[2024-09-17] MEDS: pantoprazole 40 mg SDV IVP (08:23)
[2024-09-17] MEDS: nicotine 21 mg Patch 1 PATCH TRANSDERMA (08:23)
[2024-09-17] MEDS: metoprolol succinate ER (24 HR) 50 mg Tablet 25 MG PO (08:24)
[2024-09-17] MEDS: clopidogrel 75 mg Tablet PO (08:24)
[2024-09-17] MEDS: oxyCODONE 10 mg ER (12 HR) Tablet PO ×2 (08:24→16:59)
[2024-09-17] MEDS: clotrimazole 1% cream 30 gm 1 APPLIC TOPICAL ×2 (08:27→17:00)
[2024-09-17] MEDS: mupirocin oint 22 gm 1 APPLIC TOPICAL ×2 (08:28→17:00)
[2024-09-17] MEDS: budesonide 0.5 mg/2 mL Neb INHALATION ×2 (09:29→20:31)
[2024-09-17] MEDS: micafungin 100 MG in sodium chloride 0.9% (plus) 100 ML IV (11:35)
[2024-09-17 11:52] LABS: Glucose Point of Care 216 mg/dL (70-110)
[2024-09-17 12:13] LABS: Eosinophils % 0.2 %; Hematocrit 27.8 % (36-47); Lymphocytes # 0.4 10^3/uL (0.8-4.8); Lymphocytes % 7.8 %; Mean Corpuscular Volume 90.6 fl (85-98); Mean Platelet Volume 9.7 fL (7.4-10.4); Monocytes % 0.7 %; Neutrophils # 4.06 10^3/uL (1.8-7.7); Neutrophils % 90.2 %; Nucleated Red Blood Cells % 0.4 %; Platelet Count 29 10^3/cmm (157-399); Red Blood Count 3.07 10^6/uL (3.85-5.65); Red Cell Distribution Width 13.7 % (12.1-15.1)
[2024-09-17 12:20] LABS: Alanine Aminotransferase 166 U/L (0-33); Alkaline Phosphatase 158 U/L (35-105); Anion Gap 20.5 (5-19); Aspartate Amino Transferase 60 U/L (0-32); Blood Urea Nitrogen 55 mg/dL (8-23); Calcium 8.7 mg/dL (8.5-10.5); Carbon Dioxide 20 mmol/L (22-29); Chloride 96 mmol/L (98-107); Creatinine Clr Calc Pharmacy 18.3754; Globulin 2.5 g/dL (1.3-4.6); Glucose 203 mg/dL (65-115); Osmolality Calculated 295 mOsm/kg (285-295); Potassium 4.5 mmol/L (3.5-5.1); Sodium 132 mmol/L (136-145); Total Bilirubin 0.2 mg/dL (0.15-1.2); Total Protein 5.5 g/dL (6.6-8.7)
[2024-09-17] MEDS: sodium chloride 0.9% 1,000 ML 50 ML IV (13:01)
--- NOTE | 2024-09-17 14:40 | P.PN_ITS ---
Subjective 2 Subjective: No acute events overnight. Today morning patient seen walking from bed to bedside chair. Denies any nausea vomiting, headache. States she is feeling slightly better. Pain seems to be controlled. Has remained hemodynamically stable and afebrile. Medications: Reviewed: Yes Vitals/I&O/Wt Last Vital Signs Temp 98.7 F 09/17/24 11:41 Pulse 88 09/17/24 14:37 Resp 17 09/17/24 14:29 BP 136/79 09/17/24 11:41 Pulse Ox 93 09/17/24 14:29 O2 Del Method Room Air 09/17/24 14:29 O2 Flow Rate 2 09/17/24 02:25 09/16/24 09/17/24 09/17/24 22:59 06:59 14:59 Intake Total 480 / 866 820 / 820 Balance 480 / 616 820 / 820 Weight last 48 hrs Weight 71.242 kg Weight 71.214 kg Physical Exam 2 Narrative: General: No acute distress, AO x3 HEENT: PERRLA, oropharyngeal candidiasis present Chest: Normal vesicular breath sounds, no added sounds, equal good air entry bilaterally. CVS: S1-S2 regular, no murmurs, no tachycardia, no gallops, no rubs Abdomen: Soft, nontender, no organomegaly, bowel sounds present. Bilateral diffuse groin folds with excoriation. Multiple shallow bleeding ulcers noted bilaterally, worse over left side of the abdomen. There is significant crusting overlying which may be residue from diaper rash creams versus discharge from the ulcers. There is signs of cellulitis over the left lower abdomen. Neuro: No focal deficits, no facial deformity, AO x3, power 5/5 in all limbs Extremities. Bleeding shallow ulceration over bilateral breast folds, right worse than left. Erythema involving skin fold between bilateral buttocks. Secretions noted over this area. Skin: OTHER: On admission 09/16 Right thigh Data 09/17/24 11:48 09/17/24 11:48 Micro: Microbiology 09/16/24 12:05 Gram Stain - Final Abdomen Wound Culture - Preliminary A&P Assessment and plan (1) Candidiasis: (2) Abdominal wall cellulitis: (3) Chronic steroid use: (4) Hyperglycemia: (5) Acute on chronic renal insufficiency: (6) Diabetes mellitus: (7) Acute maculopapular rash: (8) Chronic pain syndrome: (9) Thrombocytopenia: Plan 73-year-old female on high-dose steroids for last 1 month with concerns of polymyalgia rheumatica presents with significant bilateral groin folds rash along with cellulitis and decreased oral intake because of odynophagia for last 1 week getting worse over last few days. Rash: Severe candidiasis affecting multiple sites including bilateral groin folds, bilateral breast folds, buttock folds, oropharyngeal candidiasis with possibility of esophageal candidiasis given complaints of odynophagia. Most likely this severity is related to recent steroid use over the past 1 month in addition to having uncontrolled hyperglycemia. Multiple shallow bleeding ulcerations noted over the above areas. Additionally signs of abdominal wall cellulitis particularly over the left lower abdomen. With development of new generalized rash. Patient has started oral fluconazole recently as outpatient without any significant improvement. Most likely presentation in setting of severe candidiasis but given development of new rash, severity of the rash along with oral involvement definitely will have to think about SJS, TEN, dress syndrome. Specially patient was started on new methotrexate and hydrochlorothiazide on 09/01. Patient does have transaminitis, renal dysfunction which is mildly worsened than a chronic levels, thrombocytopenia, high normal eosinophils. HIV, hepatitis panel negative. A1c appreciated. Follow-up blood cultures. Underwent skin biopsy from the groin and abdominal wall area on 09/15. Underwent further skin biopsy from shoulder and thigh region on 09/16. Pathology and culture sent. Check HSV viral PCR from the rash in groin, HSV antibody Superficial fungal and viral cultures from the groin area. Patient developing worsening of renal function, transaminitis, thrombocytopenia though eosinophils remained stable. Patient is already on low-dose steroid. 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 Follow-up pathology reports. Have already stopped offending agents including methotrexate and hydrochlorothiazide. Will also stop fluconazole and switch to micafungin. Linezolid stopped. Continue with IV cefepime. Start on high-dose steroids with hydrocortisone 100 mg every 8 hourly which is going to be equal to prednisone 1 mg/kg body weight daily. Given high-dose steroids will monitor blood sugars closely. If needed will change insulin every 4 hours. Odynophagia: Most likely in setting of oral thrush. Continue with Magic mouthwash. Liquid diet. For pain control we will change to oxycodone ER 10 mg twice daily along with oxycodone IR 5 mg every 6 hours as needed. Add hydroxyzine for itching. Thrombocytopenia: Baseline platelet count normal. On presentation down to 150s. Currently 40 today. Treatment possibly as above. Check HIT panel. Hold off on heparin. Hypoxia: Check chest x-ray. Appreciate chest x-ray. Oxygen supplementation keeping saturation over 90%. LIZY on CKD: Creatinine worsening today. Most likely in setting of recent CTA, home use of ARB, new hydrochlorothiazide along with methotrexate. Baseline creatinine 1.4-1.8. Monitor BMP and electrolytes daily. Recheck urine lites, urine creatinine and eosinophils. Monitor renal functions daily. Transaminitis: Slight worsening today. Continue to monitor. Liver ultrasound nodular contour. Hepatitis panel negative. Type 2 diabetes mellitus: Uncontrolled recently most likely in setting of high steroid use. Better control now. Continue with sliding scale before meals and at bedtime. Hypoglycemia protocol. Given worsening of renal function, transaminitis, thrombocytopenia, mild hypoxia for now will check CT abd/pelvis, chest w/o contrast. Care discussed in detail with patient and patient's son at bedside. All the questions were answered. Plan for the day: Continue to follow-up skin biopsy pathology and micro. Follow-up for HSV DNA PCR. Slight worsening thrombocytopenia. Hemoglobin has remained stable. Hold off on heparin. Awaiting HIT panel. Stable versus slight improvement in renal function and liver function. Counts 6, hospital rash seems to be getting slightly better. Continue with high-dose steroids for now. Monitor blood sugars. Continue with IV cefepime. Continue with micafungin. Monitor renal functions. Dose antibiotics and antifungal as per creatinine clearance. Full code Full liquid diet SCD for DVT prophylaxis. Holding off on medical prophylaxis patient developing thrombocytopenia Protonix OPD prophylaxis Attestations 2 Medical Necessity Statement*: Requires further hospitalization for management of severe maculopapular rash with concerns for interitigo, LIZY on CKD, transaminitis, thrombocytopenia with concerns for dress syndrome Diagnoses Candidiasis B37.9 Abdominal wall cellulitis L03.311 Chronic steroid use Hyperglycemia R73.9 Acute on chronic renal insufficiency N28.9; N18.9 Diabetes mellitus E11.9 Acute maculopapular rash R21 Chronic pain syndrome G89.4 Thrombocytopenia D69.6
[2024-09-17 16:00] LABS: Anion Gap 18.6 (5-19); Blood Urea Nitrogen 57 mg/dL (8-23); Calcium 8.5 mg/dL (8.5-10.5); Carbon Dioxide 19 mmol/L (22-29); Chloride 98 mmol/L (98-107); Glucose 227 mg/dL (65-115); Osmolality Calculated 295 mOsm/kg (285-295); Potassium 4.6 mmol/L (3.5-5.1); Sodium 131 mmol/L (136-145)
[2024-09-17 16:01] LABS: Creatinine Clr Calc Pharmacy 18.3754
[2024-09-17 16:50] LABS: Glucose Point of Care 282 mg/dL (70-110)
[2024-09-17] MEDS: atorvastatin 40 mg Tablet PO (16:59)
[2024-09-17 20:39] LABS: Glucose Point of Care 321 mg/dL (70-110)
[2024-09-17] MEDS: oxyCODONE 5 mg IR Tab/Cap PO (23:26)
[2024-09-18] VITALS (10 sets, daily range): BP systolic 120–183; BP diastolic 55–81; PULSE 72–93; RESP 16–20; TEMP 36.4–36.9; O2SAT 90–97
[2024-09-18 00:09] LABS: Potassium, Radom Urine 52 mmol/L; Urine Creatinine 124 mg/dL (28-217); Urine Random Chloride 23 mmol/L; Urine Random Sodium 22 mmol/L
[2024-09-18 00:24] LABS: Add Urine Culture? No; Add Urine Microscopic? YES; Bacteria Urine None Seen /hpf; Bilirubin Urine Negative (Negative); Blood Urine 1+ (Negative); Glucose Urine UA Trace (Normal); Hyaline Casts Urine 13.22 /lpf; Ketones Urine Negative (Negative); Leukocyte Esterase Urine 1+ (Negative); Nitrate Urine Negative (Negative); Protein Urine 3+ (Negative); RBC Urine 0-2 /hpf (0-2); Squamous Epithelial Cell Urine 0-5 /hpf (0-5); Universal Test for UA Present (0); Urine Appearance Clear (CLEAR); Urine Color Yellow (Yellow); Urobilinogen Urine 0.2 mg/dL (Negative)
[2024-09-18 00:26] LABS: Eosinophil Urine No Eosinophils Seen; Urine Eosinophil Count 0 (0-0)
[2024-09-18] MEDS: LORazepam 2 mg/mL INJ 1 mL 0.5 MG IVP ×2 (01:20→10:50)
[2024-09-18] MEDS: ipratropium-albuterol 3 mL Neb INHALATION ×3 (02:32→20:37)
[2024-09-18 03:34] LABS: Eosinophils % 0.4 %; Hematocrit 27.5 % (36-47); Lymphocytes # 0.2 10^3/uL (0.8-4.8); Mean Corpuscular HGB Conc 30.2 g/dL (30-55); Mean Corpuscular Hemoglobin 28.3 pg (27-33); Mean Corpuscular Volume 93.9 fl (85-98); Mean Platelet Volume 11.5 fL (7.4-10.4); Monocytes # 0.1 10^3/uL (0.2-0.9); Monocytes % 2.6 %; Neutrophils # 2.41 10^3/uL (1.8-7.7); Neutrophils % 87.9 %; Nucleated Red Blood Cells % 0.7 %; Red Blood Count 2.93 10^6/uL (3.85-5.65); Red Cell Distribution Width 13.9 % (12.1-15.1); White Blood Count 2.74 10^3/uL (3.29-11.43)
[2024-09-18 03:54] LABS: Slide Review Slide Review Perform
[2024-09-18 03:57] LABS: Alanine Aminotransferase 133 U/L (0-33); Alkaline Phosphatase 148 U/L (35-105); Anion Gap 13.8 (5-19); Aspartate Amino Transferase 30 U/L (0-32); Blood Urea Nitrogen 61 mg/dL (8-23); Calcium 8.6 mg/dL (8.5-10.5); Carbon Dioxide 23 mmol/L (22-29); Chloride 103 mmol/L (98-107); Creatinine Clr Calc Pharmacy 18.3754; Globulin 2.2 g/dL (1.3-4.6); Glucose 192 mg/dL (65-115); Osmolality Calculated 302 mOsm/kg (285-295); Potassium 4.8 mmol/L (3.5-5.1); Sodium 135 mmol/L (136-145); Total Bilirubin 0.2 mg/dL (0.15-1.2); Total Protein 5.2 g/dL (6.6-8.7)
[2024-09-18 04:09] LABS: Platelet Count 25 10^3/cmm (157-399)
[2024-09-18] MEDS: lidocaine 2% viscous 15 ML, diphenhydrAMINE oral liq 37.5 MG, aluminum-mag hydrox-simet... MUCOUS MEM ×4 (04:49→22:43)
[2024-09-18] MEDS: hydrocortisone 100 mg/2 mL SDV IVP ×3 (04:49→19:49)
--- NOTE | 2024-09-18 04:54 | PC.NURSE ---
Attempted to reach physician to report critical lab at [phone] with no answer. Sent message through voalte and informed physician that this nurse had critical lab values to report if she would like me to attempt to call her back or her call the floor. Physician read message with no response.
[2024-09-18] MEDS: cefepime 1,000 mg SDV 1000 MG IV (06:02)
[2024-09-18 06:33] LABS: Glucose Point of Care 300 mg/dL (70-110)
[2024-09-18] MEDS: budesonide 0.5 mg/2 mL Neb INHALATION ×2 (08:18→20:37)
[2024-09-18] MEDS: nicotine 21 mg Patch 1 PATCH TRANSDERMA (09:05)
[2024-09-18] MEDS: pantoprazole 40 mg SDV IVP (09:09)
[2024-09-18] MEDS: oxyCODONE 10 mg ER (12 HR) Tablet PO ×2 (09:09→17:15)
[2024-09-18] MEDS: metoprolol succinate ER (24 HR) 50 mg Tablet 25 MG PO (09:09)
[2024-09-18] MEDS: insulin lispro 100 unit/1 mL SUBCUT ×3 (09:12→21:02)
[2024-09-18] MEDS: sodium chloride 0.9% 1,000 ML 50 ML IV (10:32)
[2024-09-18] MEDS: morphine 4 mg/mL SDV 1 mL 2 MG IVP ×2 (10:50→19:49)
[2024-09-18 11:40] LABS: Glucose Point of Care 318 mg/dL (70-110)
[2024-09-18] MEDS: micafungin 100 MG in sodium chloride 0.9% (plus) 100 ML IV (12:16)
[2024-09-18] MEDS: clotrimazole 1% cream 30 gm 1 APPLIC TOPICAL ×2 (12:17→19:50)
[2024-09-18] MEDS: mupirocin oint 22 gm 1 APPLIC TOPICAL ×2 (12:17→19:50)
[2024-09-18] MEDS: clopidogrel 75 mg Tablet PO (13:21)
--- NOTE | 2024-09-18 13:35 | P.PN_ITS ---
Subjective 2 Subjective: Today morning on examination patient complaining of excruciating pain specially in her throat while swallowing. She is also complaining of pain in her groin. Patient spitting out blood with squishing swallow. No other site of bleeding. On examination overall her rash seems to be improving today. Medications: Reviewed: Yes Vitals/I&O/Wt Last Vital Signs Temp 98.2 F 09/18/24 12:00 Pulse 72 09/18/24 12:00 Resp 18 09/18/24 12:00 BP 130/61 09/18/24 12:00 Pulse Ox 95 09/18/24 12:00 O2 Del Method Room Air 09/18/24 12:00 O2 Flow Rate 2 09/17/24 02:25 09/17/24 09/18/24 09/18/24 22:59 06:59 14:59 Intake Total 120 / 940 1200 / 1200 Output Total 500 / 500 Balance 120 / 940 700 / 700 Weight last 48 hrs Weight 72.178 kg Weight 71.242 kg Physical Exam 2 Narrative: General: No acute distress, AO x3 HEENT: PERRLA, oropharyngeal candidiasis present Chest: Normal vesicular breath sounds, no added sounds, equal good air entry bilaterally. CVS: S1-S2 regular, no murmurs, no tachycardia, no gallops, no rubs Abdomen: Soft, nontender, no organomegaly, bowel sounds present. Bilateral diffuse groin folds with excoriation. Multiple shallow bleeding ulcers noted bilaterally, worse over left side of the abdomen. There is significant crusting overlying which may be residue from diaper rash creams versus discharge from the ulcers. There is signs of cellulitis over the left lower abdomen. Neuro: No focal deficits, no facial deformity, AO x3, power 5/5 in all limbs Extremities. Bleeding shallow ulceration over bilateral breast folds, right worse than left. Erythema involving skin fold between bilateral buttocks. Secretions noted over this area. Skin: OTHER: On admission 09/16 Right thigh Data 09/18/24 02:27 09/18/24 02:27 Micro: Microbiology 09/13/24 04:50 Blood Culture - Final Blood NO GROWTH AFTER 5 DAYS 09/13/24 04:45 Blood Culture - Final Blood NO GROWTH AFTER 5 DAYS 09/16/24 12:05 Gram Stain - Final Abdomen Wound Culture - Preliminary A&P Assessment and plan (1) Candidiasis: (2) Abdominal wall cellulitis: (3) Chronic steroid use: (4) Hyperglycemia: (5) Acute on chronic renal insufficiency: (6) Diabetes mellitus: (7) Acute maculopapular rash: (8) Chronic pain syndrome: (9) Thrombocytopenia: Plan 73-year-old female on high-dose steroids for last 1 month with concerns of polymyalgia rheumatica presents with significant bilateral groin folds rash along with cellulitis and decreased oral intake because of odynophagia for last 1 week getting worse over last few days. Rash: Severe candidiasis affecting multiple sites including bilateral groin folds, bilateral breast folds, buttock folds, oropharyngeal candidiasis with possibility of esophageal candidiasis given complaints of odynophagia. Most likely this severity is related to recent steroid use over the past 1 month in addition to having uncontrolled hyperglycemia. Multiple shallow bleeding ulcerations noted over the above areas. Additionally signs of abdominal wall cellulitis particularly over the left lower abdomen. With development of new generalized rash. Patient has started oral fluconazole recently as outpatient without any significant improvement. Most likely presentation in setting of severe candidiasis but given development of new rash, severity of the rash along with oral involvement definitely will have to think about SJS, TEN, dress syndrome. Specially patient was started on new methotrexate and hydrochlorothiazide on 09/01. Patient has also developed recent new satellite lesions with concerns for central necrosis. Patient does have transaminitis, renal dysfunction which is mildly worsened than a chronic levels, thrombocytopenia, high normal eosinophils. HIV, hepatitis panel negative. A1c appreciated. CORI panel negative. Blood cultures so far negative. Underwent skin biopsy from the groin and abdominal wall area on 09/15. Underwent further skin biopsy from shoulder and thigh region on 09/16. Pathology and culture sent. Follow-up HSV viral PCR from the rash in groin, HSV antibody Superficial fungal and viral cultures from the groin area. Patient started on high-dose steroids with hydrocortisone 100 mg every 8 hourly equaling to 1 mg/kg body weight of prednisone on 09/16. 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 Follow-up pathology reports. Have already stopped offending agents including methotrexate and hydrochlorothiazide. Will also stop fluconazole and switch to micafungin. Linezolid stopped. Continue with IV cefepime. Given high-dose steroids will monitor blood sugars closely. If needed will change insulin every 4 hours. Patient showing slight improvement in transaminitis, stable renal functions and CBC for now with slight worsening in leukopenia. Odynophagia: Most likely in setting of oral thrush. Continue with Magic mouthwash. Switch to full liquid diet. Continue with oxycodone ER 10 mg twice daily along with oxycodone IR 5 mg every 4 hours as needed. Add hydroxyzine for itching. Thrombocytopenia: Baseline platelet count normal. On presentation down to 150s. Continues to worsen. High concerns for in setting of dress syndrome versus SJS. Follow-up peripheral smear. Check HIT panel. Hold off on heparin. Hypoxia: Check chest x-ray. Appreciate chest x-ray. Oxygen supplementation keeping saturation over 90%. LIZY on CKD: Creatinine worsening today. Most likely in setting of recent CTA, home use of ARB, new hydrochlorothiazide along with methotrexate. Baseline creatinine 1.4-1.8. Monitor BMP and electrolytes daily. Appreciate urine lites, urine creatinine and eosinophils. Monitor renal functions daily. Transaminitis: Treatment as above. Slight improvement. Liver ultrasound nodular contour. Hepatitis panel negative. Type 2 diabetes mellitus: Uncontrolled recently most likely in setting of high steroid use. Better control now. Continue with sliding scale before meals and at bedtime. Hypoglycemia protocol. Care discussed in detail with patient and patient's son at bedside. All the questions were answered. Plan for the day: Follow-up skin biopsy result, HSV viral PCR. Continue to monitor transaminitis, renal functions, platelet counts. Slight improvement in transaminitis today. Renal function so far stable. Continue with micafungin given concerns for severe fungal infection. Continue with high-dose steroids with hydrocortisone 100 mg every 8 hourly equal to prednisone 1 mg/kg body weight. Clinically high concerns for dress syndrome versus SJS versus TEN. Pain management and anxiety medication as above. Full code Full liquid diet SCD for DVT prophylaxis. Holding off on medical prophylaxis patient developing thrombocytopenia Protonix OPD prophylaxis Attestations 2 Medical Necessity Statement*: Requires further hospitalization for management of severe groin fold cellulitis in setting of interitigo, transaminitis, LIZY on CKD, thrombocytopenia with high concerns for dress syndrome as patient remains on high-dose steroids, wound care and IV pain medications Diagnoses Candidiasis B37.9 Abdominal wall cellulitis L03.311 Chronic steroid use Hyperglycemia R73.9 Acute on chronic renal insufficiency N28.9; N18.9 Diabetes mellitus E11.9 Acute maculopapular rash R21 Chronic pain syndrome G89.4 Thrombocytopenia D69.6
[2024-09-18 16:13] LABS: Glucose Point of Care 121 mg/dL (70-110)
[2024-09-18 17:46] LABS: HSV 1 DNA Not Detected (Not Detected); HSV 2 DNA Detected (Not Detected); HSV Source GROIN RASH
[2024-09-18 20:50] LABS: Glucose Point of Care 245 mg/dL (70-110)
[2024-09-18] MEDS: oxyCODONE 5 mg IR Tab/Cap PO (22:41)
[2024-09-19] VITALS (11 sets, daily range): BP systolic 140–176; BP diastolic 67–80; PULSE 56–93; RESP 16–22; TEMP 36.8–37.1; O2SAT 92–97
[2024-09-19] MEDS: ipratropium-albuterol 3 mL Neb INHALATION ×3 (02:34→21:41)
[2024-09-19] MEDS: lidocaine 2% viscous 15 ML, diphenhydrAMINE oral liq 37.5 MG, aluminum-mag hydrox-simet... MUCOUS MEM ×4 (04:51→22:25)
[2024-09-19] MEDS: hydrocortisone 100 mg/2 mL SDV IVP ×3 (04:51→21:14)
[2024-09-19 05:04] LABS: Eosinophils % 1.6 %; Hematocrit 25.3 % (36-47); Lymphocytes # 0.4 10^3/uL (0.8-4.8); Lymphocytes % 35.2 %; Mean Corpuscular Hemoglobin 28.1 pg (27-33); Mean Corpuscular Volume 93.7 fl (85-98); Mean Platelet Volume 10.7 fL (7.4-10.4); Monocytes # 0.1 10^3/uL (0.2-0.9); Monocytes % 4.9 %; Neutrophils % 56.7 %; Nucleated Red Blood Cells % 3.3 %; Red Cell Distribution Width 14.9 % (12.1-15.1); White Blood Count 1.22 10^3/uL (3.29-11.43)
[2024-09-19 05:32] LABS: Alanine Aminotransferase 85 U/L (0-33); Albumin Level 2.5 g/dL (3.5-5.2); Alkaline Phosphatase 122 U/L (35-105); Anion Gap 15.3 (5-19); Aspartate Amino Transferase 18 U/L (0-32); Blood Urea Nitrogen 53 mg/dL (8-23); Calcium 7.8 mg/dL (8.5-10.5); Carbon Dioxide 20 mmol/L (22-29); Chloride 109 mmol/L (98-107); Creatinine Clr Calc Pharmacy 25.5127; Globulin 2.2 g/dL (1.3-4.6); Glucose 207 mg/dL (65-115); Osmolality Calculated 310 mOsm/kg (285-295); Potassium 4.3 mmol/L (3.5-5.1); Sodium 140 mmol/L (136-145); Total Bilirubin 0.2 mg/dL (0.15-1.2); Total Protein 4.7 g/dL (6.6-8.7)
[2024-09-19 05:38] LABS: Neutrophils # 0.69 10^3/uL (1.8-7.7); Platelet Count 17 10^3/cmm (157-399); Slide Review Slide Review Perform
[2024-09-19] MEDS: cefepime 1,000 mg SDV 1000 MG IV (06:05)
[2024-09-19 06:23] LABS: Glucose Point of Care 287 mg/dL (70-110)
[2024-09-19] MEDS: budesonide 0.5 mg/2 mL Neb INHALATION ×2 (08:54→21:40)
[2024-09-19] MEDS: clopidogrel 75 mg Tablet PO (08:55)
[2024-09-19] MEDS: oxyCODONE 10 mg ER (12 HR) Tablet PO ×2 (08:55→17:08)
[2024-09-19] MEDS: nicotine 21 mg Patch 1 PATCH TRANSDERMA (08:55)
[2024-09-19] MEDS: metoprolol succinate ER (24 HR) 50 mg Tablet 25 MG PO (08:55)
[2024-09-19] MEDS: pantoprazole 40 mg SDV IVP (08:56)
[2024-09-19] MEDS: mupirocin oint 22 gm 1 APPLIC TOPICAL ×2 (09:03→22:20)
[2024-09-19] MEDS: insulin lispro 100 unit/1 mL SUBCUT ×2 (09:03→12:09)
[2024-09-19 09:43] LABS: Reflex FDPQ test REFLEX FDP QUEST TES
[2024-09-19 10:01] LABS: Partial Thromboplastin Time 22.5 SECONDS (23.9-36.7)
[2024-09-19 10:05] LABS: D Dimer 1.48 ug/mLFEU (0-0.59)
[2024-09-19 10:08] LABS: Fibrinogen 513 mg/dL (174-498)
[2024-09-19] MEDS: lidocaine 2% jelly 1 APPLIC/6 ML TUBE TOPICAL (11:30)
[2024-09-19] MEDS: clotrimazole 1% cream 30 gm 1 APPLIC TOPICAL ×2 (11:30→22:20)
[2024-09-19] MEDS: micafungin 100 MG in sodium chloride 0.9% (plus) 100 ML IV (11:31)
[2024-09-19 11:44] LABS: Glucose Point of Care 265 mg/dL (70-110)
--- NOTE | 2024-09-19 13:14 | P.PN_ITS ---
Subjective 2 Subjective: She is having pain at the sites of rashes in her groin, under pannus, between buttocks posteriorly, smaller rashes under her breasts. Pain medication has not been entirely helpful with her symptoms so far. Vitals/I&O/Wt Last Vital Signs Temp 98.4 F 09/19/24 12:00 Pulse 80 09/19/24 12:00 Resp 18 09/19/24 12:00 BP 169/71 09/19/24 12:00 Pulse Ox 97 09/19/24 12:00 O2 Del Method Room Air 09/19/24 12:00 O2 Flow Rate 2 09/17/24 02:25 09/18/24 09/19/24 09/19/24 22:59 06:59 14:59 Intake Total 730 / 1930 1250 / 3180 940 / 940 Balance 730 / 1430 1250 / 2680 940 / 940 Weight last 48 hrs Weight 73.482 kg Weight 72.178 kg Physical Exam 2 Narrative: Accompanied by her son. Const: COMMON NORMALS: patient oriented x3 and alert GENERAL APPEARANCE: c ooperative ORIENTATION/CONSCIOUSNESS: Yes awake HENMT: COMMON NORMALS: oropharynx normal Neck/C-Spine: COMMON NORMALS: no JVD Resp: COMMON NORMALS: normal respiratory effort and clear to auscultation bilaterally AUSCULTATION: clear to auscultation bilaterally Cardio: COMMON NORMALS: no JVD, regular rhythm, S1 normal heart sound present, S2 normal heart sound present and No murmurs present (Cardio) RHYTHM: regular rhythm HEART SOUNDS: S1 normal heart sound present and S2 normal heart sound present GI: COMMON NORMALS: Normal to inspection, nondistended, normoactive bowel sounds present, Soft to palpation and non-tender PALPATION: Yes Soft to palpation Extremity: COMMON NORMALS: no joint enlargement and no pedal edema Neuro: COMMON NORMALS: patient oriented x3 and moves all extremities S ENSORIUM/ORIENTATION: Yes alert Skin: NARRATIVE SKIN EXAM: Desquamated rash in groin, under pannus, gluteal cleft, less pronounced under breasts. Currently no active bleeding. Data 09/19/24 04:51 09/19/24 04:51 Micro: Microbiology 09/16/24 12:05 Gram Stain - Final Abdomen Wound Culture - Final A&P Assessment and plan (1) Candidiasis: (2) Abdominal wall cellulitis: (3) Chronic steroid use: (4) Hyperglycemia: (5) Acute on chronic renal insufficiency: (6) Diabetes mellitus: (7) Acute maculopapular rash: (8) Chronic pain syndrome: (9) Thrombocytopenia: Plan 73-year-old female on high-dose steroids for last 1 month with concerns of polymyalgia rheumatica presents with significant bilateral groin folds rash along with cellulitis and decreased oral intake because of odynophagia for last 1 week getting worse over last few days. Rash: Reviewed vitals, CBC, CMP, requested DIC profile, reviewed peripheral smear, skin biopsy, pending earlier today. Discussed with patient and her son, discussed with surgery, later on results available for pathology. Reviewed skin biopsy, peripheral smear. Noted worsened pancytopenia today. No schistocytes. Will check reticulocyte count. DIC profile not suggestive of DIC. Not currently on heparin product. Skin biopsy suggestive of drug reaction. Possibly methotrexate but cannot definitively identify drug, and is on several different medications that could have been the cause. Requesting to confirm home medications. Discussed with nursing, correctional case manager. Continues with hydrocortisone 100 mg every 8 hours, monitor for risk of hyperglycemia, hypertension, encephalopathy with IV steroids. Currently has been hypoglycemic, continue hypoglycemia protocol. Oral intake as tolerating. Hold further insulin. Continue micafungin for concomitant severe candidiasis affecting multiple sites including bilateral groin folds, bilateral breast folds, buttock folds, oropharyngeal candidiasis with possibility of esophageal candidiasis given complaints of odynophagia. Continued to have pain, had to increase oxycodone dose to 10 mg. Continue with IV morphine for severe breakthrough pain. Most likely this severity is related to recent steroid use over the past 1 month in addition to having uncontrolled hyperglycemia. Multiple shallow bleeding ulcerations noted over the above areas. Additionally signs of abdominal wall cellulitis particularly over the left lower abdomen. With development of new generalized rash. Patient has started oral fluconazole recently as outpatient without any significant improvement. Most likely presentation in setting of severe candidiasis but given development of new rash, severity of the rash along with oral involvement definitely will have to think about SJS, TEN, dress syndrome. Specially patient was started on new methotrexate and hydrochlorothiazide on 09/01. Patient has also developed recent new satellite lesions with concerns for central necrosis. Patient does have transaminitis, renal dysfunction which is mildly worsened than a chronic levels, thrombocytopenia, high normal eosinophils. HIV, hepatitis panel negative. A1c appreciated. CORI panel negative. Blood cultures so far negative. Underwent skin biopsy from the groin and abdominal wall area on 09/15. Underwent further skin biopsy from shoulder and thigh region on 09/16. Pathology and culture sent. Follow-up HSV viral PCR from the rash in groin, HSV antibody Superficial fungal and viral cultures from the groin area. Patient started on high-dose steroids with hydrocortisone 100 mg every 8 hourly equaling to 1 mg/kg body weight of prednisone on 09/16. 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 Follow-up pathology reports. Have already stopped offending agents including methotrexate and hydrochlorothiazide. Will also stop fluconazole and switch to micafungin. Linezolid stopped. Continue with IV cefepime. Given high-dose steroids will monitor blood sugars closely. If needed will change insulin every 4 hours. Hypoglycemia: Received orange juice. Will hold further insulin for now. Discussed with nursing staff. Recheck blood glucose. Oral intake as tolerating. Hypoglycemia protocol. Pancytopenia: DIC profile, low suspicion for DIC. Peripheral smear reviewed, no schistocytes. Check LDH, haptoglobin, reticulocyte. Platelets down to 17,000. Held Plavix. Oral candidiasis: Continues with micafungin. Patient showing slight improvement in transaminitis, stable renal functions and CBC for now with slight worsening in leukopenia. Odynophagia: Most likely in setting of oral thrush. Continue with Magic mouthwash. Switch to full liquid diet. Continue with oxycodone ER 10 mg twice daily along with oxycodone IR 5 mg every 4 hours as needed. hydroxyzine for itching. Thrombocytopenia: Baseline platelet count normal. On presentation down to 150s. Continues to worsen. High concerns for in setting of dress syndrome versus SJS. Follow-up peripheral smear. Check HIT panel. Hold off on heparin. Hypoxia: Check chest x-ray. Appreciate chest x-ray. Oxygen supplementation keeping saturation over 90%. LIZY on CKD: Creatinine worsening today. Most likely in setting of recent CTA, home use of ARB, new hydrochlorothiazide along with methotrexate. Baseline creatinine 1.4-1.8. Monitor BMP and electrolytes daily. Appreciate urine lites, urine creatinine and eosinophils. Monitor renal functions daily. Transaminitis: Treatment as above. Slight improvement. Liver ultrasound nodular contour. Hepatitis panel negative. Type 2 diabetes mellitus: Uncontrolled recently most likely in setting of high steroid use. Better control now. Continue with sliding scale before meals and at bedtime. Hypoglycemia protocol. Care discussed in detail with patient and patient's son at bedside. All the questions were answered. Full code Full liquid diet SCD for DVT prophylaxis. Holding off on medical prophylaxis patient developing thrombocytopenia Protonix OPD prophylaxis Attestations 2 Medical Necessity Statement*: Continue admission for assessment management of moderate to severe drug reaction, disseminated candidiasis. and High MDM includes amount and/or complexity of data reviewed/ordered [ resulted lab(s)/test(s), ordered lab(s)/test(s) and other healthcare professional discussion] and described risk of complication, morbidity or mortality of management as documented Diagnoses Candidiasis B37.9 Abdominal wall cellulitis L03.311 Chronic steroid use Hyperglycemia R73.9 Acute on chronic renal insufficiency N28.9; N18.9 Diabetes mellitus E11.9 Acute maculopapular rash R21 Chronic pain syndrome G89.4 Thrombocytopenia D69.6
[2024-09-19] MEDS: morphine 4 mg/mL SDV 1 mL 2 MG IVP ×2 (15:10→22:19)
--- NOTE | 2024-09-19 15:26 | PC.SOCIAL ---
IMM updated IMM dated and initialed, copy given to patient and copy placed in chart.
[2024-09-19 16:27] LABS: Glucose Point of Care 49 mg/dL (70-110)
[2024-09-19 16:52] LABS: Glucose Point of Care 57 mg/dL (70-110)
[2024-09-19] MEDS: ALPRAZolam 0.5 mg Tablet PO ×2 (17:09→22:19)
[2024-09-19 18:07] LABS: Glucose Point of Care 199 mg/dL (70-110)
--- NOTE | 2024-09-19 18:46 | PC.NURSE ---
Pt had unexpected bout of hypoglycemia. Juice given per protocol. BS normalized. Notified Dr. Selby of unexpected finding.
[2024-09-19 18:50] LABS: Retic Production Index 1.94; Reticulocyte % 3.1 % (0.5-2.0)
[2024-09-19 18:54] LABS: Lactate Dehydrogenase 257 U/L (135-214)
[2024-09-19 20:45] LABS: Glucose Point of Care 216 mg/dL (70-110)
[2024-09-20] VITALS (13 sets, daily range): BP systolic 150–198; BP diastolic 73–95; PULSE 67–83; RESP 15–20; TEMP 36.4–37; O2SAT 93–96
[2024-09-20 00:35] LABS: Heparin Induced Platelet AB NEGATIVE (NEGATIVE); Patient O.D 0.015
[2024-09-20] MEDS: oxyCODONE 5 mg IR Tab/Cap 10 MG PO ×3 (01:36→19:42)
[2024-09-20] MEDS: lidocaine 2% viscous 15 ML, diphenhydrAMINE oral liq 37.5 MG, aluminum-mag hydrox-simet... MUCOUS MEM ×4 (04:19→22:29)
[2024-09-20] MEDS: hydrocortisone 100 mg/2 mL SDV IVP ×3 (04:19→19:45)
[2024-09-20] MEDS: morphine 4 mg/mL SDV 1 mL 2 MG IVP (04:23)
[2024-09-20] MEDS: cefepime 1,000 mg SDV 1000 MG IV (05:27)
[2024-09-20 05:30] LABS: Eosinophils % 0.7 %; Hematocrit 27.7 % (36-47); Lymphocytes # 0.6 10^3/uL (0.8-4.8); Lymphocytes % 42.6 %; Mean Corpuscular HGB Conc 31.4 g/dL (30-55); Mean Corpuscular Hemoglobin 28.6 pg (27-33); Mean Corpuscular Volume 91.1 fl (85-98); Mean Platelet Volume 12.1 fL (7.4-10.4); Monocytes # 0.1 10^3/uL (0.2-0.9); Monocytes % 10.3 %; Neutrophils % 44.2 %; Nucleated Red Blood Cells # 0.1 /100WBC; Nucleated Red Blood Cells % 6.6 %; Platelet Count 59 10^3/cmm (157-399); Red Blood Count 3.04 10^6/uL (3.85-5.65); White Blood Count 1.36 10^3/uL (3.29-11.43)
[2024-09-20 05:50] LABS: Alanine Aminotransferase 78 U/L (0-33); Albumin Level 3.2 g/dL (3.5-5.2); Alkaline Phosphatase 136 U/L (35-105); Anion Gap 14.9 (5-19); Aspartate Amino Transferase 15 U/L (0-32); Blood Urea Nitrogen 44 mg/dL (8-23); Calcium 8.6 mg/dL (8.5-10.5); Carbon Dioxide 23 mmol/L (22-29); Chloride 103 mmol/L (98-107); Creatinine Clr Calc Pharmacy 32.5045; Globulin 2.3 g/dL (1.3-4.6); Glucose 219 mg/dL (65-115); Osmolality Calculated 300 mOsm/kg (285-295); Potassium 4.9 mmol/L (3.5-5.1); Sodium 136 mmol/L (136-145); Total Bilirubin 0.3 mg/dL (0.15-1.2); Total Protein 5.5 g/dL (6.6-8.7)
[2024-09-20 06:03] LABS: Slide Review Slide Review Perform
[2024-09-20 06:23] LABS: Glucose Point of Care 226 mg/dL (70-110)
[2024-09-20] MEDS: oxyCODONE 10 mg ER (12 HR) Tablet PO ×2 (08:36→17:19)
[2024-09-20] MEDS: metoprolol succinate ER (24 HR) 50 mg Tablet 25 MG PO (08:37)
[2024-09-20] MEDS: pantoprazole 40 mg SDV IVP (08:39)
[2024-09-20] MEDS: nicotine 21 mg Patch 1 PATCH TRANSDERMA (08:39)
[2024-09-20] MEDS: budesonide 0.5 mg/2 mL Neb INHALATION ×2 (09:08→21:32)
[2024-09-20] MEDS: ipratropium-albuterol 3 mL Neb INHALATION ×2 (09:09→21:32)
[2024-09-20 10:55] LABS: Glucose Point of Care 456 mg/dL (70-110)
[2024-09-20] MEDS: mupirocin oint 22 gm 1 APPLIC TOPICAL ×2 (12:36→16:35)
[2024-09-20] MEDS: micafungin 100 MG in sodium chloride 0.9% (plus) 100 ML IV (12:42)
[2024-09-20] MEDS: clotrimazole 1% cream 30 gm 1 APPLIC TOPICAL ×2 (12:45→16:34)
[2024-09-20 16:56] LABS: Glucose Point of Care 354 mg/dL (70-110)
--- NOTE | 2024-09-20 18:45 | P.PN_ITS ---
Subjective 2 Subjective: She is having pain in her mouth. Vitals/I&O/Wt Last Vital Signs Temp 97.6 F 09/20/24 15:36 Pulse 83 09/20/24 15:36 Resp 20 H 09/20/24 15:36 BP 160/84 09/20/24 15:36 Pulse Ox 95 09/20/24 15:36 O2 Del Method Room Air 09/20/24 15:36 O2 Flow Rate 2 09/17/24 02:25 09/20/24 09/20/24 09/20/24 06:59 14:59 22:59 Intake Total 120 / 2260 460 / 460 240 / 700 Output Total 300 / 800 Balance -180 / 1460 460 / 460 240 / 700 Weight last 48 hrs Weight 74.389 kg Weight 73.482 kg Physical Exam 2 Narrative: Accompanied by her son. Const: COMMON NORMALS: patient oriented x3 and alert GENERAL APPEARANCE: c ooperative ORIENTATION/CONSCIOUSNESS: Yes awake HENMT: COMMON NORMALS: oropharynx normal Neck/C-Spine: COMMON NORMALS: no JVD Resp: COMMON NORMALS: normal respiratory effort and clear to auscultation bilaterally AUSCULTATION: clear to auscultation bilaterally Cardio: COMMON NORMALS: no JVD, regular rhythm, S1 normal heart sound present, S2 normal heart sound present and No murmurs present (Cardio) RHYTHM: regular rhythm HEART SOUNDS: S1 normal heart sound present and S2 normal heart sound present GI: COMMON NORMALS: Normal to inspection, nondistended, normoactive bowel sounds present, Soft to palpation and non-tender PALPATION: Yes Soft to palpation Extremity: COMMON NORMALS: no joint enlargement and no pedal edema Neuro: COMMON NORMALS: patient oriented x3 and moves all extremities S ENSORIUM/ORIENTATION: Yes alert Skin: NARRATIVE SKIN EXAM: Desquamated rash in groin, under pannus, gluteal cleft, less pronounced under breasts. Currently no active bleeding. Data 09/20/24 04:58 09/20/24 04:58 A&P Assessment and plan (1) Candidiasis: (2) Abdominal wall cellulitis: (3) Chronic steroid use: (4) Hyperglycemia: (5) Acute on chronic renal insufficiency: (6) Diabetes mellitus: (7) Acute maculopapular rash: (8) Chronic pain syndrome: (9) Thrombocytopenia: Plan 73-year-old female on high-dose steroids for last 1 month with concerns of polymyalgia rheumatica presents with significant bilateral groin folds rash along with cellulitis and decreased oral intake because of odynophagia for last 1 week getting worse over last few days. Rash: Continue wound care. Reviewed vitals, CBC, CMP. Platelets noted with improvement up to 59,000. Still neutropenic, ANC 600. Reassess blood counts. Reviewed LDH, haptoglobin. Reticulocyte. Mild elevation of LDH. Haptoglobin for some reason was not resulted. Will reorder. Continue to withhold potential offending medication for continue IV steroid. Continue wound care. Discussed with nursing, vocational case manager Reviewed vitals, CBC, CMP, requested DIC profile, reviewed peripheral smear, skin biopsy, pending earlier today. Discussed with patient and her son, discussed with surgery, later on results available for pathology. Reviewed skin biopsy, peripheral smear. Noted worsened pancytopenia today. No schistocytes. Will check reticulocyte count. DIC profile not suggestive of DIC. Not currently on heparin product. Skin biopsy suggestive of drug reaction. Possibly methotrexate but cannot definitively identify drug, and is on several different medications that could have been the cause. Requesting to confirm home medications. Discussed with nursing, vocational case manager. Continues with hydrocortisone 100 mg every 8 hours, monitor for risk of hyperglycemia, hypertension, encephalopathy with IV steroids. Currently has been hypoglycemic, continue hypoglycemia protocol. Oral intake as tolerating. Hold further insulin. Mucositis: Has been treating with Magic mouthwash, although states limited response. Continue systemic antifungal. Initially considered adding some antiseptic spray, nystatin swish and swallow, but later on report possible aspiration with water by her nurse. Made NPO. Speech therapy assessment requested. Continue micafungin for concomitant severe candidiasis affecting multiple sites including bilateral groin folds, bilateral breast folds, buttock folds, oropharyngeal candidiasis with possibility of esophageal candidiasis given complaints of odynophagia. Continued to have pain, had to increase oxycodone dose to 10 mg. Continue with IV morphine for severe breakthrough pain. Most likely this severity is related to recent steroid use over the past 1 month in addition to having uncontrolled hyperglycemia. Multiple shallow bleeding ulcerations noted over the above areas. Additionally signs of abdominal wall cellulitis particularly over the left lower abdomen. With development of new generalized rash. Patient has started oral fluconazole recently as outpatient without any significant improvement. Most likely presentation in setting of severe candidiasis but given development of new rash, severity of the rash along with oral involvement definitely will have to think about SJS, TEN, dress syndrome. Specially patient was started on new methotrexate and hydrochlorothiazide on 09/01. Patient has also developed recent new satellite lesions with concerns for central necrosis. Patient does have transaminitis, renal dysfunction which is mildly worsened than a chronic levels, thrombocytopenia, high normal eosinophils. HIV, hepatitis panel negative. A1c appreciated. CORI panel negative. Blood cultures so far negative. Underwent skin biopsy from the groin and abdominal wall area on 09/15. Underwent further skin biopsy from shoulder and thigh region on 09/16. Pathology and culture sent. Follow-up HSV viral PCR from the rash in groin, HSV antibody Superficial fungal and viral cultures from the groin area. Patient started on high-dose steroids with hydrocortisone 100 mg every 8 hourly equaling to 1 mg/kg body weight of prednisone on 09/16. 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 Follow-up pathology reports. Have already stopped offending agents including methotrexate and hydrochlorothiazide. Will also stop fluconazole and switch to micafungin. Linezolid stopped. Continue with IV cefepime. Given high-dose steroids will monitor blood sugars closely. If needed will change insulin every 4 hours. Hypoglycemia: Reviewed blood glucose. Hypoglycemia improved today. Received orange juice. Will hold further insulin for now. Discussed with nursing staff. Recheck blood glucose. Oral intake as tolerating. Hypoglycemia protocol. Pancytopenia: Reviewed LDH, mild elevation. Haptoglobin for some reason did not resolve. Reorder. DIC profile, low suspicion for DIC. Peripheral smear reviewed, no schistocytes. Check LDH, haptoglobin, reticulocyte. Platelets down to 17,000. Held Plavix. Oral candidiasis: Continues with micafungin.Hold off swish and swallow for now, Chloraseptic spray, assess with speech therapy with possible risk of aspiration. Patient showing slight improvement in transaminitis, stable renal functions and CBC for now with slight worsening in leukopenia. Odynophagia: Most likely in setting of oral thrush. Continue with Magic mouthwash. Switch to full liquid diet. Continue with oxycodone ER 10 mg twice daily along with oxycodone IR 5 mg every 4 hours as needed. hydroxyzine for itching. Thrombocytopenia: Baseline platelet count normal. On presentation down to 150s. Continues to worsen. High concerns for in setting of dress syndrome versus SJS. Follow-up peripheral smear. Check HIT panel. Hold off on heparin. Hypoxia: Check chest x-ray. Appreciate chest x-ray. Oxygen supplementation keeping saturation over 90%. LIZY on CKD: Creatinine worsening today. Most likely in setting of recent CTA, home use of ARB, new hydrochlorothiazide along with methotrexate. Baseline creatinine 1.4-1.8. Monitor BMP and electrolytes daily. Appreciate urine lites, urine creatinine and eosinophils. Monitor renal functions daily. Transaminitis: Treatment as above. Slight improvement. Liver ultrasound nodular contour. Hepatitis panel negative. Type 2 diabetes mellitus: Uncontrolled recently most likely in setting of high steroid use. Better control now. Continue with sliding scale before meals and at bedtime. Hypoglycemia protocol. Full code Full liquid diet SCD for DVT prophylaxis. Holding off on medical prophylaxis patient developing thrombocytopenia Protonix OPD prophylaxis Attestations 2 Medical Necessity Statement*: Continue admission for assessment management of moderate to severe drug reaction, disseminated candidiasis. Diagnoses Candidiasis B37.9 Abdominal wall cellulitis L03.311 Chronic steroid use Hyperglycemia R73.9 Acute on chronic renal insufficiency N28.9; N18.9 Diabetes mellitus E11.9 Acute maculopapular rash R21 Chronic pain syndrome G89.4 Thrombocytopenia D69.6
[2024-09-20] MEDS: ALPRAZolam 0.5 mg Tablet PO (19:53)
[2024-09-20 20:47] LABS: Glucose Point of Care 425 mg/dL (70-110)
[2024-09-20 21:14] LABS: UFH High Dose, 100 IU/ML 0 % release; UFH Low Dose, 0.1 IU/ML 0 % release; UFH Low Dose, 0.5 IU/ML 1 % release; UFH SRA Result NEGATIVE (NEGATIVE)
[2024-09-20] MEDS: insulin lispro 100 unit/1 mL SUBCUT (21:18)
[2024-09-20] MEDS: hyDRALAzine 20 mg/mL INJ 1 mL 5 MG IVP (21:18)
--- NOTE | 2024-09-20 21:38 | PC.NURSE ---
Hypertension and Hypergylcemia At approximately 2100, this nurse was notified by [employer]IST that pt's blood pressure was 180/73 and blood sugar 425. This nurse noticed pt's sliding scale insulin was on hold. Dr. Feng notified and ordered to resume sliding scale insulin and give Hydralazine 5mg IVP for high blood pressure.
[2024-09-21] VITALS (17 sets, daily range): BP systolic 103–191; BP diastolic 68–115; PULSE 61–91; RESP 18–22; TEMP 36.3–37; O2SAT 93–98
[2024-09-21] MEDS: morphine 4 mg/mL SDV 1 mL 2 MG IVP ×3 (00:11→20:12)
[2024-09-21] MEDS: hyDROXYzine 25 mg Capsule PO (00:53)
[2024-09-21] MEDS: oxyCODONE 5 mg IR Tab/Cap 10 MG PO ×3 (00:53→23:56)
[2024-09-21] MEDS: hydrocortisone 100 mg/2 mL SDV IVP ×3 (05:06→20:12)
[2024-09-21] MEDS: lidocaine 2% viscous 15 ML, diphenhydrAMINE oral liq 37.5 MG, aluminum-mag hydrox-simet... MUCOUS MEM ×4 (05:06→23:52)
[2024-09-21] MEDS: cefepime 1,000 mg SDV 1000 MG IV (05:06)
[2024-09-21 05:31] LABS: Hematocrit 26.7 % (36-47); Mean Corpuscular HGB Conc 31.8 g/dL (30-55); Mean Corpuscular Hemoglobin 29.3 pg (27-33); Mean Corpuscular Volume 92.1 fl (85-98); Mean Platelet Volume 10.6 fL (7.4-10.4); Platelet Count 143 10^3/cmm (157-399); Red Cell Distribution Width 15.1 % (12.1-15.1)
[2024-09-21 05:53] LABS: Alanine Aminotransferase 56 U/L (0-33); Albumin Level 2.9 g/dL (3.5-5.2); Alkaline Phosphatase 123 U/L (35-105); Anion Gap 14.7 (5-19); Aspartate Amino Transferase 12 U/L (0-32); Blood Urea Nitrogen 45 mg/dL (8-23); Calcium 8.5 mg/dL (8.5-10.5); Carbon Dioxide 23 mmol/L (22-29); Chloride 105 mmol/L (98-107); Globulin 2.3 g/dL (1.3-4.6); Glucose 90 mg/dL (65-115); Osmolality Calculated 297 mOsm/kg (285-295); Potassium 4.7 mmol/L (3.5-5.1); Sodium 138 mmol/L (136-145); Total Bilirubin 0.3 mg/dL (0.15-1.2); Total Protein 5.2 g/dL (6.6-8.7)
[2024-09-21 06:30] LABS: Glucose Point of Care 134 mg/dL (70-110)
[2024-09-21] MEDS: oxyCODONE 10 mg ER (12 HR) Tablet PO ×2 (08:13→17:19)
[2024-09-21] MEDS: metoprolol succinate ER (24 HR) 50 mg Tablet 25 MG PO (08:13)
[2024-09-21] MEDS: pantoprazole 40 mg SDV IVP (08:14)
[2024-09-21] MEDS: nicotine 21 mg Patch 1 PATCH TRANSDERMA (08:14)
[2024-09-21] MEDS: ALPRAZolam 0.5 mg Tablet PO ×2 (08:14→17:19)
[2024-09-21] MEDS: mupirocin oint 22 gm 1 APPLIC TOPICAL ×2 (08:16→17:20)
[2024-09-21] MEDS: clotrimazole 1% cream 30 gm 1 APPLIC TOPICAL ×2 (08:16→17:20)
[2024-09-21 08:31] LABS: Slide Review Slide Review Perform
[2024-09-21 08:32] LABS: Absolute Segmented Neutrophil 0.3 10/cmm (1.6-7.1); Eosinophils 2 %; Lymphocytes 43 %; Lymphocytes Absolute 0.7 10^3/cmm (1.2-3.4); Monocytes Absolute 0.1 10^3/cmm (0.1-0.6); Segmented Neutrophils 28 %; Total Cells Counted 100 (0-100)
[2024-09-21 08:33] LABS: Platelet Estimate Decreased (Normal)
[2024-09-21 08:37] LABS: Absolute Neutrophil 0.4 10^3/cmm (1.4-6.5)
[2024-09-21 09:49] LABS: LAB Peripheral Smear Sent for Review
[2024-09-21 11:14] LABS: Glucose Point of Care 356 mg/dL (70-110)
[2024-09-21] MEDS: insulin lispro 100 unit/1 mL SUBCUT ×3 (11:49→21:13)
[2024-09-21] MEDS: micafungin 100 MG in sodium chloride 0.9% (plus) 100 ML IV (11:49)
[2024-09-21 14:57] LABS: SM/RNP Antibodies <1.0 NEG
[2024-09-21 16:31] LABS: Glucose Point of Care 184 mg/dL (70-110)
--- NOTE | 2024-09-21 19:50 | P.PN_ITS ---
Subjective 2 Subjective: Resting, wakes up to voice. States mouth is still sore. Still pain at the lesions in the skin folds and groin, gluteal cleft, but those are showing some improvement. Vitals/I&O/Wt Last Vital Signs Temp 97.5 F L 09/21/24 15:26 Pulse 82 09/21/24 15:26 Resp 18 09/21/24 15:27 BP 163/91 09/21/24 15:26 Pulse Ox 98 09/21/24 15:27 O2 Del Method Room Air 09/21/24 15:26 O2 Flow Rate 2 09/17/24 02:25 09/21/24 09/21/24 09/21/24 06:59 14:59 22:59 Intake Total 240 / 1180 460 / 460 120 / 580 Output Total 500 / 500 Balance -260 / 680 460 / 460 120 / 580 Weight last 48 hrs Weight 74.797 kg Weight 74.389 kg Physical Exam 2 Const: COMMON NORMALS: patient oriented x3 and alert GENERAL APPEARANCE: c ooperative ORIENTATION/CONSCIOUSNESS: Yes awake HENMT: OTHER: Oral mucositis right side cheek, right side hard palate Neck/C-Spine: COMMON NORMALS: no JVD Resp: COMMON NORMALS: normal respiratory effort and clear to auscultation bilaterally AUSCULTATION: clear to auscultation bilaterally Cardio: COMMON NORMALS: no JVD, regular rhythm, S1 normal heart sound present, S2 normal heart sound present and No murmurs present (Cardio) RHYTHM: regular rhythm HEART SOUNDS: S1 normal heart sound present and S2 normal heart sound present GI: COMMON NORMALS: Normal to inspection, nondistended, normoactive bowel sounds present, Soft to palpation and non-tender PALPATION: Yes Soft to palpation Extremity: COMMON NORMALS: no joint enlargement and no pedal edema Neuro: COMMON NORMALS: patient oriented x3 and moves all extremities S ENSORIUM/ORIENTATION: Yes alert Skin: NARRATIVE SKIN EXAM: Desquamated rash in groin, under pannus, gluteal cleft, less pronounced under breasts. Currently no active bleeding. Data 09/21/24 05:17 09/21/24 05:17 Micro: Microbiology 09/14/24 19:26 Fungal Culture - Preliminary Skin - Abdominal A&P Assessment and plan (1) Candidiasis: (2) Abdominal wall cellulitis: (3) Chronic steroid use: (4) Hyperglycemia: (5) Acute on chronic renal insufficiency: (6) Diabetes mellitus: (7) Acute maculopapular rash: (8) Chronic pain syndrome: (9) Thrombocytopenia: Plan 73-year-old female on high-dose steroids for last 1 month with concerns of polymyalgia rheumatica presents with significant bilateral groin folds rash along with cellulitis and decreased oral intake because of odynophagia for last 1 week getting worse over last few days. Rash: Mild improvement in the rash, however, has been bothered by mucositis. Improvement in platelets, but worsening neutropenia. Noted eosinophils on differential. Atypical lymphocytes noted as well. Requested repeat peripheral smear. Will see if we can get in touch with hematology. Reviewed CBC, LDH, haptoglobin. No evidence of hemolysis. Additionally discontinued pantoprazole, switched over to famotidine. Continue to withhold potential offending medication for continue IV steroid. Continue wound care. Discussed with nursing, rehabilitation caseworker DIC profile not suggestive of DIC. Low probability of TTP. Not currently on heparin product. Skin biopsy suggestive of drug reaction. Possibly methotrexate but cannot definitively identify drug, and is on several different medications that could have been the cause. Requesting to confirm home medications. Discussed with rehabilitation caseworker. Continues with hydrocortisone 100 mg every 8 hours, monitor for risk of hyperglycemia, hypertension, encephalopathy with IV steroids. Currently has been hypoglycemic, continue hypoglycemia protocol. Oral intake as tolerating. Hold further insulin. Mucositis: Bothersome mucositis. Yesterday with concern for aspiration was assessed by speech therapy, recommendation for continued liquid diet discussed with her. Start nystatin by mouth. Phenaseptic spray. Aspiration precautions. Has been treating with Magic mouthwash, although states limited response. Continue systemic antifungal. Initially considered adding some antiseptic spray, nystatin swish and swallow, but later on report possible aspiration with water by her nurse. Made NPO. Speech therapy assessment requested. Continue micafungin for concomitant severe candidiasis affecting multiple sites including bilateral groin folds, bilateral breast folds, buttock folds, oropharyngeal candidiasis with possibility of esophageal candidiasis given complaints of odynophagia. Continued to have pain, had to increase oxycodone dose to 10 mg. Continue with IV morphine for severe breakthrough pain. Most likely this severity is related to recent steroid use over the past 1 month in addition to having uncontrolled hyperglycemia. Multiple shallow bleeding ulcerations noted over the above areas. Additionally signs of abdominal wall cellulitis particularly over the left lower abdomen. With development of new generalized rash. Patient has started oral fluconazole recently as outpatient without any significant improvement. Most likely presentation in setting of severe candidiasis but given development of new rash, severity of the rash along with oral involvement definitely will have to think about SJS, TEN, dress syndrome. Specially patient was started on new methotrexate and hydrochlorothiazide on 09/01. Patient has also developed recent new satellite lesions with concerns for central necrosis. Patient does have transaminitis, renal dysfunction which is mildly worsened than a chronic levels, thrombocytopenia, high normal eosinophils. HIV, hepatitis panel negative. A1c appreciated. CORI panel negative. Blood cultures so far negative. Underwent skin biopsy from the groin and abdominal wall area on 09/15. Underwent further skin biopsy from shoulder and thigh region on 09/16. Pathology and culture sent. Follow-up HSV viral PCR from the rash in groin, HSV antibody Superficial fungal and viral cultures from the groin area. Patient started on high-dose steroids with hydrocortisone 100 mg every 8 hourly equaling to 1 mg/kg body weight of prednisone on 09/16. 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 Follow-up pathology reports. Have already stopped offending agents including methotrexate and hydrochlorothiazide. Will also stop fluconazole and switch to micafungin. Linezolid stopped. Continue with IV cefepime. Given high-dose steroids will monitor blood sugars closely. If needed will change insulin every 4 hours. Hypoglycemia: Reviewed blood glucose. Hypoglycemia improved today. Received orange juice. Will hold further insulin for now. Discussed with nursing staff. Recheck blood glucose. Oral intake as tolerating. Hypoglycemia protocol. Pancytopenia: Reviewed LDH, mild elevation. Haptoglobin for some reason did not resolve. Reorder. DIC profile, low suspicion for DIC. Peripheral smear reviewed, no schistocytes. Check LDH, haptoglobin, reticulocyte. Platelets down to 17,000. Held Plavix. Patient showing slight improvement in transaminitis, stable renal functions and CBC for now with slight worsening in leukopenia. Odynophagia: Most likely in setting of oral thrush. Continue with Magic mouthwash. Switch to full liquid diet. Continue with oxycodone ER 10 mg twice daily along with oxycodone IR 5 mg every 4 hours as needed. hydroxyzine for itching. Thrombocytopenia: Baseline platelet count normal. On presentation down to 150s. Continues to worsen. High concerns for in setting of dress syndrome versus SJS. Follow-up peripheral smear. Check HIT panel. Hold off on heparin. Hypoxia: Check chest x-ray. Appreciate chest x-ray. Oxygen supplementation keeping saturation over 90%. LIZY on CKD: Creatinine worsening today. Most likely in setting of recent CTA, home use of ARB, new hydrochlorothiazide along with methotrexate. Baseline creatinine 1.4-1.8. Monitor BMP and electrolytes daily. Appreciate urine lites, urine creatinine and eosinophils. Monitor renal functions daily. Transaminitis: Treatment as above. Slight improvement. Liver ultrasound nodular contour. Hepatitis panel negative. Type 2 diabetes mellitus: Uncontrolled recently most likely in setting of high steroid use. Better control now. Continue with sliding scale before meals and at bedtime. Hypoglycemia protocol. Full code Full liquid diet SCD for DVT prophylaxis. Holding off on medical prophylaxis patient developing thrombocytopenia Protonix OPD prophylaxis Attestations 2 Medical Necessity Statement*: Continue admission for assessment management of moderate to severe drug reaction, disseminated candidiasis. Diagnoses Candidiasis B37.9 Abdominal wall cellulitis L03.311 Chronic steroid use Hyperglycemia R73.9 Acute on chronic renal insufficiency N28.9; N18.9 Diabetes mellitus E11.9 Acute maculopapular rash R21 Chronic pain syndrome G89.4 Thrombocytopenia D69.6
[2024-09-21] MEDS: famotidine 20 mg/2 mL INJ IVP (20:12)
[2024-09-21] MEDS: nystatin 100,000 unit/mL UDC 5 mL 400000 UNIT PO (20:12)
[2024-09-21] MEDS: phenol oral Spray 177 mL 3 SPRAY MUCOUS MEM ×2 (20:23→23:53)
[2024-09-21 20:30] LABS: Glucose Point of Care 243 mg/dL (70-110)
[2024-09-21] MEDS: ipratropium-albuterol 3 mL Neb INHALATION (21:19)
[2024-09-21] MEDS: budesonide 0.5 mg/2 mL Neb INHALATION (21:19)
[2024-09-22] VITALS (13 sets, daily range): BP systolic 162–203; BP diastolic 77–85; PULSE 73–111; RESP 16–19; TEMP 36.3–37.1; O2SAT 93–96
[2024-09-22] MEDS: lidocaine 2% viscous 15 ML, diphenhydrAMINE oral liq 37.5 MG, aluminum-mag hydrox-simet... MUCOUS MEM ×4 (04:55→23:05)
[2024-09-22] MEDS: hydrocortisone 100 mg/2 mL SDV IVP ×3 (04:56→20:15)
[2024-09-22] MEDS: morphine 4 mg/mL SDV 1 mL 2 MG IVP ×2 (04:56→22:07)
[2024-09-22] MEDS: cefepime 1,000 mg SDV 1000 MG IV (05:02)
[2024-09-22 05:56] LABS: Basophils % 0.8 %; Eosinophils % 0.8 %; Hematocrit 30.8 % (36-47); Lymphocytes # 0.5 10^3/uL (0.8-4.8); Lymphocytes % 37.5 %; Mean Corpuscular HGB Conc 31.8 g/dL (30-55); Mean Corpuscular Hemoglobin 29.2 pg (27-33); Mean Corpuscular Volume 91.7 fl (85-98); Mean Platelet Volume 10.2 fL (7.4-10.4); Monocytes # 0.3 10^3/uL (0.2-0.9); Monocytes % 21.7 %; Neutrophils % 25.9 %; Nucleated Red Blood Cells # 0.1 /100WBC; Platelet Count 270 10^3/cmm (157-399); Red Blood Count 3.36 10^6/uL (3.85-5.65); Red Cell Distribution Width 15.4 % (12.1-15.1)
[2024-09-22 06:20] LABS: Alanine Aminotransferase 49 U/L (0-33); Albumin Level 3.1 g/dL (3.5-5.2); Alkaline Phosphatase 138 U/L (35-105); Anion Gap 16.5 (5-19); Aspartate Amino Transferase 14 U/L (0-32); Blood Urea Nitrogen 40 mg/dL (8-23); Calcium 8.5 mg/dL (8.5-10.5); Carbon Dioxide 25 mmol/L (22-29); Chloride 102 mmol/L (98-107); Creatinine Clr Calc Pharmacy 37.6031; Globulin 2.7 g/dL (1.3-4.6); Glucose 167 mg/dL (65-115); Osmolality Calculated 302 mOsm/kg (285-295); Potassium 4.5 mmol/L (3.5-5.1); Sodium 139 mmol/L (136-145); Total Bilirubin 0.3 mg/dL (0.15-1.2); Total Protein 5.8 g/dL (6.6-8.7)
[2024-09-22 06:34] LABS: Glucose Point of Care 179 mg/dL (70-110)
[2024-09-22 06:49] LABS: Fibrinogen Degradation Product <5 mcg/mL (LESS THAN 5)
[2024-09-22 08:23] LABS: Neutrophils # 0.31 10^3/uL (1.8-7.7)
[2024-09-22 08:24] LABS: Slide Review Slide Review Perform
[2024-09-22] MEDS: ALPRAZolam 0.5 mg Tablet PO (08:32)
[2024-09-22] MEDS: metoprolol succinate ER (24 HR) 50 mg Tablet 25 MG PO (08:32)
[2024-09-22] MEDS: famotidine 20 mg/2 mL INJ IVP ×2 (08:33→20:15)
[2024-09-22] MEDS: insulin lispro 100 unit/1 mL SUBCUT ×4 (08:33→22:07)
[2024-09-22] MEDS: nystatin 100,000 unit/mL UDC 5 mL 400000 UNIT PO ×4 (08:33→20:15)
[2024-09-22] MEDS: nicotine 21 mg Patch 1 PATCH TRANSDERMA (08:33)
[2024-09-22] MEDS: clotrimazole 1% cream 30 gm 1 APPLIC TOPICAL ×2 (08:34→17:03)
[2024-09-22] MEDS: oxyCODONE 10 mg ER (12 HR) Tablet PO ×2 (08:34→17:03)
[2024-09-22] MEDS: mupirocin oint 22 gm 1 APPLIC TOPICAL ×2 (08:34→17:03)
[2024-09-22] MEDS: ipratropium-albuterol 3 mL Neb INHALATION ×3 (09:46→19:23)
[2024-09-22 11:35] LABS: Glucose Point of Care 284 mg/dL (70-110)
[2024-09-22] MEDS: hyDROXYzine 25 mg Capsule PO ×2 (12:34→20:15)
[2024-09-22] MEDS: oxyCODONE 5 mg IR Tab/Cap 10 MG PO ×2 (12:35→23:05)
[2024-09-22] MEDS: micafungin 100 MG in sodium chloride 0.9% (plus) 100 ML IV (12:43)
[2024-09-22] MEDS: amlodipine 5 mg Tablet PO (18:05)
--- NOTE | 2024-09-22 19:52 | P.PN_ITS ---
Subjective 2 Subjective: Skin rash is improving in abdominal skin folds, groin, gluteal cleft, but mucositis is still very bothersome. Vitals/I&O/Wt Last Vital Signs Temp 98.8 F 09/22/24 17:00 Pulse 82 09/22/24 19:27 Resp 18 09/22/24 19:27 BP 162/84 09/22/24 17:00 Pulse Ox 93 09/22/24 19:27 O2 Del Method Room Air 09/22/24 19:27 O2 Flow Rate 2 09/17/24 02:25 09/22/24 09/22/24 09/22/24 06:59 14:59 22:59 Intake Total 120 / 940 940 / 940 360 / 1300 Balance 120 / 740 940 / 940 360 / 1300 Weight last 48 hrs Weight 74.797 kg Weight 74.797 kg Physical Exam 2 Const: COMMON NORMALS: patient oriented x3 and alert GENERAL APPEARANCE: c ooperative ORIENTATION/CONSCIOUSNESS: Yes awake HENMT: COMMON NORMALS: oropharynx normal OTHER: Oral mucositis patches on cheeks, lateral gums, part of heart and part of soft palate. Neck/C-Spine: COMMON NORMALS: no JVD Resp: COMMON NORMALS: normal respiratory effort and clear to auscultation bilaterally AUSCULTATION: clear to auscultation bilaterally Cardio: COMMON NORMALS: no JVD, regular rhythm, S1 normal heart sound present, S2 normal heart sound present and No murmurs present (Cardio) RHYTHM: regular rhythm HEART SOUNDS: S1 normal heart sound present and S2 normal heart sound present GI: COMMON NORMALS: Normal to inspection, nondistended, normoactive bowel sounds present, Soft to palpation and non-tender PALPATION: Yes Soft to palpation Extremity: COMMON NORMALS: no joint enlargement and no pedal edema Neuro: COMMON NORMALS: patient oriented x3 and moves all extremities S ENSORIUM/ORIENTATION: Yes alert Skin: NARRATIVE SKIN EXAM: Desquamated rash in groin, under pannus, gluteal cleft, less pronounced under breasts. Currently no active bleeding. Data 09/22/24 04:53 09/22/24 04:53 A&P Assessment and plan (1) Candidiasis: (2) Abdominal wall cellulitis: (3) Chronic steroid use: (4) Hyperglycemia: (5) Acute on chronic renal insufficiency: (6) Diabetes mellitus: (7) Acute maculopapular rash: (8) Chronic pain syndrome: (9) Thrombocytopenia: Plan 73-year-old female on high-dose steroids for last 1 month with concerns of polymyalgia rheumatica presents with significant bilateral groin folds rash along with cellulitis and decreased oral intake because of odynophagia for last 1 week getting worse over last few days. Rash: Skin rash is showing gradual improvement, including in abdominal skin folds, groins, gluteal cleft. Subsiding erythema, decreasing oozing. Decreasing pain. However, still very bothersome mucositis. Discussed with her reviewed peripheral smear Send after noted atypical lymphocytes, and still pending. No atypical lymphs noted on auto differential today. No more eosinophils. He is having persistent somewhat worse neutropenia, ANC 310. Discussed with nursing, case resource manager. Additionally discontinued pantoprazole, switched over to famotidine. Continue to withhold potential offending medication (suspected methotrexate) for continue IV steroid. Continue wound care. Discussed with nursing, case resource manager DIC profile not suggestive of DIC. Low probability of TTP. Not currently on heparin product. Skin biopsy suggestive of drug reaction. Possibly methotrexate but cannot definitively identify drug, and is on several different medications that could have been the cause. Requesting to confirm home medications. Discussed with case resource manager. Continues with hydrocortisone 100 mg every 8 hours, monitor for risk of hyperglycemia, hypertension, encephalopathy with IV steroids. Currently has been hypoglycemic, continue hypoglycemia protocol. Oral intake as tolerating. Hold further insulin. Mucositis: Still bothersome mucositis. Nystatin swish and swallow. Phenaseptic spray. Magic mouthwash.Discussed with her steroid therapy, will discontinue Pulmicort at this time in case contributing. Full liquid diet. Aspiration precautions. Has been treating with Magic mouthwash, although states limited response. Continue systemic antifungal. Initially considered adding some antiseptic spray, nystatin swish and swallow, but later on report possible aspiration with water by her nurse. Made NPO. Speech therapy assessment requested. Continue micafungin for concomitant severe candidiasis affecting multiple sites including bilateral groin folds, bilateral breast folds, buttock folds, oropharyngeal candidiasis with possibility of esophageal candidiasis given complaints of odynophagia. Continue oxycodone dose to 10 mg. Continue with IV morphine for severe breakthrough pain. Most likely this severity is related to recent steroid use over the past 1 month in addition to having uncontrolled hyperglycemia. Multiple shallow bleeding ulcerations noted over the above areas. Additionally signs of abdominal wall cellulitis particularly over the left lower abdomen. With development of new generalized rash. Patient has started oral fluconazole recently as outpatient without any significant improvement. HIV, hepatitis panel negative. A1c appreciated. CORI panel negative. Blood cultures so far negative. Underwent skin biopsy from the groin and abdominal wall area on 09/15. Underwent further skin biopsy from shoulder and thigh region on 09/16. Fungal culture pending. Viral culture could not be obtained, HSV was obtained here, Reviewed and negative, VZV is being requested. Patient started on high-dose steroids with hydrocortisone 100 mg every 8 hourly equaling to 1 mg/kg body weight of prednisone on 09/16. Monitor for adverse effects, hyperglycemia, encephalopathy, gastritis, hypertension. Blood pressure noted elevated this morning as high as 203/85. Started on amlodipine. So far showing improvement down to 162/84. Continue to monitor blood pressure. Hypoglycemia: Resolved. Reviewed blood glucose. Hypoglycemia improved today. Received orange juice. Will hold further insulin for now. Discussed with nursing staff. Recheck blood glucose. Oral intake as tolerating. Hypoglycemia protocol. Pancytopenia: Without suggestion of hemolysis. No suggestion of DIC. Low probability of TTP. Platelets improving. RBCs improving. Still neutropenic. Reassess counts. Held Plavix. Patient showing slight improvement in transaminitis, stable renal functions and CBC for now with slight worsening in leukopenia. Hypoxia:Resolved. Saturating in the 90s on room air. Right upper lobe groundglass opacities. Underlying emphysema. LIZY on CKD: Creatinine worsening today. Most likely in setting of recent CTA, home use of ARB, new hydrochlorothiazide along with methotrexate. Baseline creatinine 1.4-1.8. Monitor BMP and electrolytes daily. Appreciate urine lites, urine creatinine and eosinophils. Monitor renal functions daily. Transaminitis: Treatment as above. Slight improvement. Liver ultrasound nodular contour. Hepatitis panel negative. Type 2 diabetes mellitus: Continue to monitor glucose. Sliding scale insulin. Reviewed POC glucose. Currently no room for long-acting insulin. Better control now. Continue with sliding scale before meals and at bedtime. Hypoglycemia protocol. Full code Full liquid diet SCD for DVT prophylaxis. Holding off on medical prophylaxis patient developing thrombocytopenia. SCDs. Protonix OPD prophylaxis Attestations 2 Medical Necessity Statement*: Continue admission for assessment management of moderate to severe drug reaction, disseminated candidiasis, severe neutropenia. Diagnoses Candidiasis B37.9 Abdominal wall cellulitis L03.311 Chronic steroid use Hyperglycemia R73.9 Acute on chronic renal insufficiency N28.9; N18.9 Diabetes mellitus E11.9 Acute maculopapular rash R21 Chronic pain syndrome G89.4 Thrombocytopenia D69.6
[2024-09-22 21:47] LABS: Glucose Point of Care 183 mg/dL (70-110)
[2024-09-23] VITALS (17 sets, daily range): BP systolic 159–183; BP diastolic 62–82; PULSE 71–97; RESP 15–18; TEMP 36.4–37.1; O2SAT 93–95
[2024-09-23] MEDS: morphine 4 mg/mL SDV 1 mL 2 MG IVP (02:24)
[2024-09-23] MEDS: hydrocortisone 100 mg/2 mL SDV IVP ×3 (05:09→21:27)
[2024-09-23] MEDS: lidocaine 2% viscous 15 ML, diphenhydrAMINE oral liq 37.5 MG, aluminum-mag hydrox-simet... MUCOUS MEM ×4 (05:09→22:56)
[2024-09-23] MEDS: cefepime 1,000 mg SDV 1000 MG IV (05:09)
[2024-09-23] MEDS: oxyCODONE 5 mg IR Tab/Cap 10 MG PO ×4 (05:17→21:45)
[2024-09-23] MEDS: phenol oral Spray 177 mL 3 SPRAY MUCOUS MEM (05:20)
[2024-09-23 06:43] LABS: Basophils % 1.9 %; Eosinophils % 1.3 %; Hematocrit 31.4 % (36-47); Lymphocytes # 0.4 10^3/uL (0.8-4.8); Lymphocytes % 24.5 %; Mean Corpuscular HGB Conc 31.8 g/dL (30-55); Mean Corpuscular Hemoglobin 28.5 pg (27-33); Mean Corpuscular Volume 89.5 fl (85-98); Mean Platelet Volume 9.9 fL (7.4-10.4); Monocytes # 0.5 10^3/uL (0.2-0.9); Monocytes % 29.7 %; Neutrophils % 20.7 %; Nucleated Red Blood Cells # 0.1 /100WBC; Nucleated Red Blood Cells % 3.2 %; Platelet Count 528 10^3/cmm (157-399); Red Blood Count 3.51 10^6/uL (3.85-5.65); Red Cell Distribution Width 15.5 % (12.1-15.1); White Blood Count 1.55 10^3/uL (3.29-11.43)
[2024-09-23 06:46] LABS: Glucose Point of Care 272 mg/dL (70-110)
[2024-09-23 06:58] LABS: Alanine Aminotransferase 38 U/L (0-33); Alkaline Phosphatase 133 U/L (35-105); Anion Gap 15.9 (5-19); Aspartate Amino Transferase 12 U/L (0-32); Blood Urea Nitrogen 30 mg/dL (8-23); Calcium 8.6 mg/dL (8.5-10.5); Carbon Dioxide 27 mmol/L (22-29); Chloride 97 mmol/L (98-107); Creatinine Clr Calc Pharmacy 34.3657; Globulin 2.7 g/dL (1.3-4.6); Glucose 256 mg/dL (65-115); Osmolality Calculated 297 mOsm/kg (285-295); Potassium 3.9 mmol/L (3.5-5.1); Sodium 136 mmol/L (136-145); Total Bilirubin 0.3 mg/dL (0.15-1.2); Total Protein 5.7 g/dL (6.6-8.7)
[2024-09-23 07:38] LABS: Neutrophils # 0.32 10^3/uL (1.8-7.7); Slide Review Slide Review Perform
[2024-09-23] MEDS: ipratropium-albuterol 3 mL Neb INHALATION ×3 (08:25→20:38)
[2024-09-23] MEDS: oxyCODONE 10 mg ER (12 HR) Tablet PO (08:49)
[2024-09-23] MEDS: amlodipine 5 mg Tablet PO (08:49)
[2024-09-23] MEDS: hyDROXYzine 25 mg Capsule PO ×2 (08:49→17:50)
[2024-09-23] MEDS: clotrimazole 1% cream 30 gm 1 APPLIC TOPICAL ×2 (08:50→17:51)
[2024-09-23] MEDS: mupirocin oint 22 gm 1 APPLIC TOPICAL ×2 (08:50→17:51)
[2024-09-23] MEDS: nystatin 100,000 unit/mL UDC 5 mL 400000 UNIT PO ×4 (08:50→21:28)
[2024-09-23] MEDS: nicotine 21 mg Patch 1 PATCH TRANSDERMA (08:51)
[2024-09-23] MEDS: metoprolol succinate ER (24 HR) 50 mg Tablet 25 MG PO (08:51)
[2024-09-23] MEDS: famotidine 20 mg/2 mL INJ IVP ×2 (08:51→21:27)
[2024-09-23] MEDS: insulin lispro 100 unit/1 mL SUBCUT ×3 (08:51→21:28)
[2024-09-23] MEDS: micafungin 100 MG in sodium chloride 0.9% (plus) 100 ML IV (12:22)
[2024-09-23 12:43] LABS: Glucose Point of Care 388 mg/dL (70-110)
[2024-09-23 12:43] LABS: Glucose Point of Care 177 mg/dL (70-110)
[2024-09-23 16:52] LABS: Glucose Point of Care 75 mg/dL (70-110)
--- NOTE | 2024-09-23 19:48 | P.PN_ITS ---
Subjective 2 Subjective: Minimally better, still with bothersome mucositis. Skin fold lesions although with some improvement are still painful. No bleeding. Vitals/I&O/Wt Last Vital Signs Temp 98.0 F 09/23/24 16:00 Pulse 90 09/23/24 16:00 Resp 16 09/23/24 17:50 BP 162/68 09/23/24 16:00 Pulse Ox 95 09/23/24 17:50 O2 Del Method Room Air 09/23/24 16:00 O2 Flow Rate 2 09/17/24 02:25 09/23/24 09/23/24 09/23/24 06:59 14:59 22:59 Intake Total 580 / 580 120 / 700 Balance 580 / 580 120 / 700 Weight last 48 hrs Weight 72.32 kg Weight 74.797 kg Physical Exam 2 Narrative: Accompanied by her son. Const: COMMON NORMALS: patient oriented x3 and alert GENERAL APPEARANCE: c ooperative ORIENTATION/CONSCIOUSNESS: Yes awake HENMT: COMMON NORMALS: oropharynx normal OTHER: Oral mucositis patches on cheeks, lateral gums, part of heart and part of soft palate. Neck/C-Spine: COMMON NORMALS: no JVD Resp: COMMON NORMALS: normal respiratory effort and clear to auscultation bilaterally AUSCULTATION: clear to auscultation bilaterally Cardio: COMMON NORMALS: no JVD, regular rhythm, S1 normal heart sound present, S2 normal heart sound present and No murmurs present (Cardio) RHYTHM: regular rhythm HEART SOUNDS: S1 normal heart sound present and S2 normal heart sound present GI: COMMON NORMALS: Normal to inspection, nondistended, normoactive bowel sounds present, Soft to palpation and non-tender PALPATION: Yes Soft to palpation Extremity: COMMON NORMALS: no joint enlargement and no pedal edema Neuro: COMMON NORMALS: patient oriented x3 and moves all extremities S ENSORIUM/ORIENTATION: Yes alert Skin: NARRATIVE SKIN EXAM: Slowly improving, less erythematous desquamated rash in groin, under pannus, gluteal cleft, less pronounced under breasts. Currently no active bleeding. Data 09/23/24 06:18 09/23/24 06:18 Micro: Microbiology 09/16/24 12:05 Fungal Culture - Preliminary Skin - Biopsy 09/16/24 12:05 Fungal Culture - Preliminary Skin - Biopsy A&P Assessment and plan (1) Candidiasis: (2) Abdominal wall cellulitis: (3) Chronic steroid use: (4) Hyperglycemia: (5) Acute on chronic renal insufficiency: (6) Diabetes mellitus: (7) Acute maculopapular rash: (8) Chronic pain syndrome: (9) Thrombocytopenia: Plan 73-year-old female on high-dose steroids for last 1 month with concerns of polymyalgia rheumatica presents with significant bilateral groin folds rash along with cellulitis and decreased oral intake because of odynophagia for last 1 week getting worse over last few days. Pancytopenia: Reviewed vitals, blood counts, neutrophils reviewed, ANC today without further decrease 320. RBC with improvement, platelets continue to rise today up to 528. Resume Plavix, resume prophylactic heparin. Continue neutropenic precautions. Continue empiric antibiotic for now. Without suggestion of hemolysis. No suggestion of DIC. Low probability of TTP. Platelets improving. RBCs improving. Still neutropenic. Reassess counts. Reviewed peripheral smear. 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 Reassess counts. Mucositis: Still bothersome mucositis. Continue liquid diet for now. Nystatin swish and swallow. Phenaseptic spray. Magic mouthwash. Discussed with her steroid therapy. Discontinued Pulmicort. Full liquid diet. Aspiration precautions. Rash: Skin rash is showing gradual improvement, including in abdominal skin folds, groins, gluteal cleft. Subsiding erythema, decreasing oozing. Decreasing pain. However, still very bothersome mucositis. Continues with systemic steroid therapy as has shown some improvement. Monitor for risk of hyperglycemia, reviewed POC glucose, hypertension, encephalopathy, gastritis. Discussed with her reviewed peripheral smear Send after noted atypical lymphocytes, and still pending. No atypical lymphs noted on auto differential today. No more eosinophils. He is having persistent somewhat worse neutropenia, ANC 310. Discussed with nursing, medical case manager. Hematology unavailable until Thursday. Additionally discontinued pantoprazole, switched over to famotidine. Continue to withhold potential offending medication (suspected methotrexate) for continue IV steroid. Continue wound care. Discussed with nursing, medical case manager DIC profile not suggestive of DIC. Low probability of TTP. Not currently on heparin product. Skin biopsy suggestive of drug reaction. Possibly methotrexate but cannot definitively identify drug, and is on several different medications that could have been the cause. Requesting to confirm home medications. Discussed with medical case manager. Continues with hydrocortisone 100 mg every 8 hours, monitor for risk of hyperglycemia, hypertension, encephalopathy with IV steroids. Currently has been hypoglycemic, continue hypoglycemia protocol. Oral intake as tolerating. Hold further insulin. Continue micafungin for concomitant severe candidiasis affecting multiple sites including bilateral groin folds, bilateral breast folds, buttock folds, oropharyngeal candidiasis with possibility of esophageal candidiasis given complaints of odynophagia. Continue oxycodone dose to 10 mg. Continue with IV morphine for severe breakthrough pain. Most likely this severity is related to recent steroid use over the past 1 month in addition to having uncontrolled hyperglycemia. Multiple shallow bleeding ulcerations noted over the above areas. Additionally signs of abdominal wall cellulitis particularly over the left lower abdomen. With development of new generalized rash. Patient has started oral fluconazole recently as outpatient without any significant improvement. HIV, hepatitis panel negative. A1c appreciated. CORI panel negative. Blood cultures so far negative. Underwent skin biopsy from the groin and abdominal wall area on 09/15. Underwent further skin biopsy from shoulder and thigh region on 09/16. Fungal culture pending. Viral culture could not be obtained, HSV was obtained here, Reviewed and negative, VZV is being requested. Patient started on high-dose steroids with hydrocortisone 100 mg every 8 hourly equaling to 1 mg/kg body weight of prednisone on 09/16. Monitor for adverse effects, hyperglycemia, encephalopathy, gastritis, hypertension. Blood pressure noted elevated this morning as high as 203/85. Started on amlodipine. So far showing improvement down to 162/84. Continue to monitor blood pressure. Hypoglycemia: Glucose 75. Continue steroid for now. Reassess. Not on long- acting insulin. Reviewed blood glucose. Hypoglycemia improved today. Received orange juice. Will hold further insulin for now. Discussed with nursing staff. Recheck blood glucose. Oral intake as tolerating. Hypoglycemia protocol. Patient showing slight improvement in transaminitis, stable renal functions and CBC for now with slight worsening in leukopenia. Hypoxia:Resolved. Saturating in the 90s on room air. Right upper lobe groundglass opacities. Underlying emphysema. LIZY on CKD: Creatinine worsening today. Most likely in setting of recent CTA, home use of ARB, new hydrochlorothiazide along with methotrexate. Baseline creatinine 1.4-1.8. Monitor BMP and electrolytes daily. Appreciate urine lites, urine creatinine and eosinophils. Monitor renal functions daily. Transaminitis: Treatment as above. Slight improvement. Liver ultrasound nodular contour. Hepatitis panel negative. Type 2 diabetes mellitus: Continue to monitor glucose. Sliding scale insulin. Reviewed POC glucose. Currently no room for long-acting insulin. Better control now. Continue with sliding scale before meals and at bedtime. Hypoglycemia protocol. Full code Full liquid diet SCD for DVT prophylaxis. Holding off on medical prophylaxis patient developing thrombocytopenia. SCDs. Protonix OPD prophylaxis Attestations 2 Medical Necessity Statement*: Continue admission for assessment management of moderate to severe drug reaction, disseminated candidiasis, severe neutropenia. Diagnoses Candidiasis B37.9 Abdominal wall cellulitis L03.311 Chronic steroid use Hyperglycemia R73.9 Acute on chronic renal insufficiency N28.9; N18.9 Diabetes mellitus E11.9 Acute maculopapular rash R21 Chronic pain syndrome G89.4 Thrombocytopenia D69.6
[2024-09-23 21:08] LABS: Glucose Point of Care 224 mg/dL (70-110)
[2024-09-23] MEDS: heparin 5,000 unit/mL INJ 1 mL 5000 UNIT SUBCUT (21:28)
[2024-09-24] VITALS (17 sets, daily range): BP systolic 138–182; BP diastolic 69–88; PULSE 63–87; RESP 14–18; TEMP 36.6–37; O2SAT 90–98
[2024-09-24] MEDS: oxyCODONE 5 mg IR Tab/Cap 10 MG PO ×5 (02:41→21:05)
[2024-09-24] MEDS: phenol oral Spray 177 mL 3 SPRAY MUCOUS MEM (02:47)
[2024-09-24] MEDS: lidocaine 2% viscous 15 ML, diphenhydrAMINE oral liq 37.5 MG, aluminum-mag hydrox-simet... MUCOUS MEM ×4 (04:37→22:53)
[2024-09-24] MEDS: hydrocortisone 100 mg/2 mL SDV IVP ×3 (04:38→20:13)
[2024-09-24 05:04] LABS: Basophils # 0.1 10^3/uL (0.0-0.1); Basophils % 2.2 %; Eosinophils % 0.7 %; Hematocrit 29.5 % (36-47); Lymphocytes # 0.5 10^3/uL (0.8-4.8); Lymphocytes % 17.5 %; Mean Corpuscular HGB Conc 32.2 g/dL (30-55); Mean Corpuscular Hemoglobin 29.2 pg (27-33); Mean Corpuscular Volume 90.8 fl (85-98); Mean Platelet Volume 9.7 fL (7.4-10.4); Monocytes # 0.9 10^3/uL (0.2-0.9); Monocytes % 31.4 %; Neutrophils % 17.2 %; Nucleated Red Blood Cells # 0.1 /100WBC; Nucleated Red Blood Cells % 2.9 %; Platelet Count 642 10^3/cmm (157-399); Red Blood Count 3.25 10^6/uL (3.85-5.65); Red Cell Distribution Width 15.5 % (12.1-15.1); White Blood Count 2.74 10^3/uL (3.29-11.43)
[2024-09-24 05:22] LABS: Alanine Aminotransferase 30 U/L (0-33); Albumin Level 2.9 g/dL (3.5-5.2); Alkaline Phosphatase 123 U/L (35-105); Blood Urea Nitrogen 29 mg/dL (8-23); Calcium 8.6 mg/dL (8.5-10.5); Carbon Dioxide 29 mmol/L (22-29); Chloride 99 mmol/L (98-107); Creatinine Clr Calc Pharmacy 32.0747; Globulin 2.7 g/dL (1.3-4.6); Glucose 129 mg/dL (65-115); Osmolality Calculated 292 mOsm/kg (285-295); Sodium 137 mmol/L (136-145); Total Bilirubin 0.2 mg/dL (0.15-1.2); Total Protein 5.6 g/dL (6.6-8.7)
[2024-09-24 05:23] LABS: Slide Review Slide Review Perform
[2024-09-24 05:24] LABS: Anion Gap 12.9 (5-19); Aspartate Amino Transferase 17 U/L (0-32); Potassium 3.9 mmol/L (3.5-5.1)
[2024-09-24 05:25] LABS: Neutrophils # 0.47 10^3/uL (1.8-7.7)
[2024-09-24] MEDS: cefepime 1,000 mg SDV 1000 MG IV (06:21)
[2024-09-24 06:24] LABS: Glucose Point of Care 170 mg/dL (70-110)
[2024-09-24] MEDS: nicotine 21 mg Patch 1 PATCH TRANSDERMA (08:13)
[2024-09-24] MEDS: insulin lispro 100 unit/1 mL SUBCUT ×4 (08:13→21:05)
[2024-09-24] MEDS: heparin 5,000 unit/mL INJ 1 mL 5000 UNIT SUBCUT ×2 (08:14→20:13)
[2024-09-24] MEDS: metoprolol succinate ER (24 HR) 50 mg Tablet 25 MG PO (08:14)
[2024-09-24] MEDS: hyDROXYzine 25 mg Capsule PO ×4 (08:14→21:06)
[2024-09-24] MEDS: famotidine 20 mg/2 mL INJ IVP ×2 (08:14→20:14)
[2024-09-24] MEDS: nystatin 100,000 unit/mL UDC 5 mL 400000 UNIT PO ×4 (08:14→20:14)
[2024-09-24] MEDS: amlodipine 5 mg Tablet PO (08:14)
[2024-09-24] MEDS: clopidogrel 75 mg Tablet PO (08:14)
[2024-09-24] MEDS: mupirocin oint 22 gm 1 APPLIC TOPICAL ×2 (08:16→17:04)
[2024-09-24] MEDS: clotrimazole 1% cream 30 gm 1 APPLIC TOPICAL ×2 (08:17→17:04)
[2024-09-24] MEDS: ipratropium-albuterol 3 mL Neb INHALATION ×3 (09:21→20:51)
[2024-09-24 11:50] LABS: Glucose Point of Care 241 mg/dL (70-110)
[2024-09-24] MEDS: micafungin 100 MG in sodium chloride 0.9% (plus) 100 ML IV (12:21)
[2024-09-24 16:58] LABS: Glucose Point of Care 160 mg/dL (70-110)
[2024-09-24 20:24] LABS: Glucose Point of Care 212 mg/dL (70-110)
--- NOTE | 2024-09-24 20:43 | PM.PN ---
Subjective Subjective: Minimally better today, but otherwise still having painful mucositis. No additional new symptoms. Vitals/I&O/Wt Last Vital Signs Temp 98.6 F 09/24/24 19:48 Pulse 86 09/24/24 19:48 Resp 15 09/24/24 19:48 BP 145/78 09/24/24 19:48 Pulse Ox 96 09/24/24 19:48 O2 Del Method Room Air 09/24/24 19:48 O2 Flow Rate 2 09/17/24 02:25 09/24/24 09/24/24 09/24/24 06:59 14:59 22:59 Intake Total 340 / 340 120 / 460 Balance 340 / 340 120 / 460 Weight last 48 hrs Weight 72.32 kg Weight 72.32 kg Physical Exam Const: COMMON NORMALS: patient oriented x3 and alert GENERAL APPEARANCE: cooperative ORIENTATION/CONSCIOUSNESS: Yes awake HENMT: COMMON NORMALS: oropharynx normal OTHER: Oral mucositis patches on cheeks, lateral gums, part of heart and part of soft palate. Neck/C-Spine: COMMON NORMALS: no JVD Resp: COMMON NORMALS: normal respiratory effort and clear to auscultation bilaterally AUSCULTATION: clear to auscultation bilaterally Cardio: COMMON NORMALS: no JVD, regular rhythm, S1 normal heart sound present, S2 normal heart sound present and No murmurs present (Cardio) RHYTHM: regular rhythm HEART SOUNDS: S1 normal heart sound present and S2 normal heart sound present GI: COMMON NORMALS: Normal to inspection, nondistended, normoactive bowel sounds present, Soft to palpation and non-tender PALPATION: Yes Soft to palpation Extremity: COMMON NORMALS: no joint enlargement and no pedal edema Neuro: COMMON NORMALS: patient oriented x3 and moves all extremities SENSORIUM/ORIENTATION: Yes alert Skin: NARRATIVE SKIN EXAM: Slowly improving, less erythematous desquamated rash in groin, under pannus, gluteal cleft, less pronounced under breasts. Currently no active bleeding. Data 09/24/24 04:31 09/24/24 04:31 A&P Assessment and plan (1) Candidiasis: (2) Abdominal wall cellulitis: (3) Chronic steroid use: (4) Hyperglycemia: (5) Acute on chronic renal insufficiency: (6) Diabetes mellitus: (7) Acute maculopapular rash: (8) Chronic pain syndrome: (9) Thrombocytopenia: Plan 73-year-old female on high-dose steroids for last 1 month with concerns of polymyalgia rheumatica presents with significant bilateral groin folds rash along with cellulitis and decreased oral intake because of odynophagia for last 1 week getting worse over last few days. Pancytopenia: Reviewed vitals, WBC, neutrophils, noted improvement in ANC up to 470 today. Discussed with her. No atypical cells, no eosinophils noted today. Noted some nucleated RBC. RBC levels increasing. Hemoglobin improved up to 9.5. Platelets so far additional increasing up to 642. Reassess blood counts. Reviewed blood culture, negative. Reviewed [facility] culture, noted Rosa albicans. Viral studies for VZV, pending. Resumed Plavix, resumed prophylactic heparin. Continue neutropenic precautions. Continue empiric antibiotic for now. Without suggestion of hemolysis. No suggestion of DIC. Low probability of TTP. Platelets improving. RBCs improving. Still neutropenic. Reassess counts. Reviewed peripheral smear. 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 Reassess counts. Mucositis: Still bothersome mucositis. Continue liquid diet for now. Nystatin swish and swallow. Phenaseptic spray. Magic mouthwash. Discussed with her steroid therapy. Discontinued Pulmicort. Full liquid diet. Aspiration precautions. Hypertension: Continue to treat pain. Addition will increase amlodipine to 10 mg. Reviewed BMP. CKD, creatinine patient at baseline. Rash: Skin rash is showing gradual improvement, including in abdominal skin folds, groins, gluteal cleft. Subsiding erythema, decreasing oozing. Decreasing pain. However, still very bothersome mucositis. Continues with systemic steroid therapy as has shown some improvement. Monitor for risk of hyperglycemia, reviewed POC glucose, hypertension, encephalopathy, gastritis. Discussed with her reviewed peripheral smear Send after noted atypical lymphocytes, and still pending. No atypical lymphs noted on auto differential today. No more eosinophils. He is having persistent somewhat worse neutropenia, ANC 310. Discussed with nursing, child support case officer. Hematology unavailable until Thursday. Additionally discontinued pantoprazole, switched over to famotidine. Continue to withhold potential offending medication (suspected methotrexate) for continue IV steroid. Continue wound care. Discussed with nursing, child support case officer DIC profile not suggestive of DIC. Low probability of TTP. Not currently on heparin product. Skin biopsy suggestive of drug reaction. Possibly methotrexate but cannot definitively identify drug, and is on several different medications that could have been the cause. Requesting to confirm home medications. Discussed with child support case officer. Continues with hydrocortisone 100 mg every 8 hours, monitor for risk of hyperglycemia, hypertension, encephalopathy with IV steroids. Currently has been hypoglycemic, continue hypoglycemia protocol. Oral intake as tolerating. Hold further insulin. Continue micafungin for concomitant severe candidiasis affecting multiple sites including bilateral groin folds, bilateral breast folds, buttock folds, oropharyngeal candidiasis with possibility of esophageal candidiasis given complaints of odynophagia. Continue oxycodone dose to 10 mg. Continue with IV morphine for severe breakthrough pain. Most likely this severity is related to recent steroid use over the past 1 month in addition to having uncontrolled hyperglycemia. Multiple shallow bleeding ulcerations noted over the above areas. Additionally signs of abdominal wall cellulitis particularly over the left lower abdomen. With development of new generalized rash. Patient has started oral fluconazole recently as outpatient without any significant improvement. HIV, hepatitis panel negative. A1c appreciated. CORI panel negative. Blood cultures so far negative. Underwent skin biopsy from the groin and abdominal wall area on 09/15. Underwent further skin biopsy from shoulder and thigh region on 09/16. Fungal culture pending. Viral culture could not be obtained, HSV was obtained here, Reviewed and negative, VZV is being requested. Patient started on high-dose steroids with hydrocortisone 100 mg every 8 hourly equaling to 1 mg/kg body weight of prednisone on 09/16. Monitor for adverse effects, hyperglycemia, encephalopathy, gastritis, hypertension. Blood pressure noted elevated this morning as high as 203/85. Started on amlodipine. So far showing improvement down to 162/84. Continue to monitor blood pressure. Hypoglycemia: Reviewed POC glucose. Glucose improved. Continue steroid for now. Reassess. Not on long-acting insulin. Reviewed blood glucose. Hypoglycemia improved today. Received orange juice. Will hold further insulin for now. Discussed with nursing staff. Recheck blood glucose. Oral intake as tolerating. Hypoglycemia protocol. Patient showing slight improvement in transaminitis, stable renal functions and CBC for now with slight worsening in leukopenia. Hypoxia:Resolved. Saturating in the 90s on room air. Right upper lobe groundglass opacities. Underlying emphysema. LIZY on CKD: Creatinine worsening today. Most likely in setting of recent CTA, home use of ARB, new hydrochlorothiazide along with methotrexate. Baseline creatinine 1.4-1.8. Monitor BMP and electrolytes daily. Appreciate urine lites, urine creatinine and eosinophils. Monitor renal functions daily. Transaminitis: Treatment as above. Slight improvement. Liver ultrasound nodular contour. Hepatitis panel negative. Type 2 diabetes mellitus: Continue to monitor glucose. Sliding scale insulin. Reviewed POC glucose. Currently no room for long-acting insulin. Better control now. Continue with sliding scale before meals and at bedtime. Hypoglycemia protocol. Full code Full liquid diet SCD for DVT prophylaxis. Holding off on medical prophylaxis patient developing thrombocytopenia. SCDs. Protonix OPD prophylaxis Attestations Medical Necessity Statement*: Continue admission for assessment management of moderate to severe drug reaction, disseminated candidiasis, severe neutropenia. Diagnoses Candidiasis B37.9 Abdominal wall cellulitis L03.311 Chronic steroid use Hyperglycemia R73.9 Acute on chronic renal insufficiency N28.9; N18.9 Diabetes mellitus E11.9 Acute maculopapular rash R21 Chronic pain syndrome G89.4 Thrombocytopenia D69.6
[2024-09-25] VITALS (15 sets, daily range): BP systolic 131–180; BP diastolic 63–88; PULSE 76–102; RESP 17–20; TEMP 36.3–37.7; O2SAT 93–99
[2024-09-25] MEDS: hyDROXYzine 25 mg Capsule PO ×5 (01:41→21:55)
[2024-09-25] MEDS: hydrocortisone 100 mg/2 mL SDV IVP ×3 (04:22→21:09)
[2024-09-25] MEDS: lidocaine 2% viscous 15 ML, diphenhydrAMINE oral liq 37.5 MG, aluminum-mag hydrox-simet... MUCOUS MEM ×4 (04:22→23:36)
[2024-09-25 05:58] LABS: Mean Corpuscular HGB Conc 31.6 g/dL (30-55); Mean Corpuscular Hemoglobin 28.3 pg (27-33); Mean Corpuscular Volume 89.6 fl (85-98); Mean Platelet Volume 9.7 fL (7.4-10.4); Platelet Count 842 10^3/cmm (157-399); Red Blood Count 3.46 10^6/uL (3.85-5.65); Red Cell Distribution Width 15.3 % (12.1-15.1); White Blood Count 5.74 10^3/uL (3.29-11.43)
[2024-09-25] MEDS: cefepime 1,000 mg SDV 1000 MG IV (06:06)
[2024-09-25 06:13] LABS: Alanine Aminotransferase 28 U/L (0-33); Alkaline Phosphatase 135 U/L (35-105); Blood Urea Nitrogen 28 mg/dL (8-23); Calcium 8.9 mg/dL (8.5-10.5); Carbon Dioxide 31 mmol/L (22-29); Chloride 97 mmol/L (98-107); Creatinine Clr Calc Pharmacy 30.1019; Glucose 125 mg/dL (65-115); Osmolality Calculated 295 mOsm/kg (285-295); Sodium 139 mmol/L (136-145); Total Bilirubin 0.2 mg/dL (0.15-1.2)
[2024-09-25 06:14] LABS: Anion Gap 14.6 (5-19); Aspartate Amino Transferase 20 U/L (0-32); Potassium 3.6 mmol/L (3.5-5.1)
[2024-09-25 06:20] LABS: Slide Review Slide Review Perform
[2024-09-25 06:28] LABS: Glucose Point of Care 140 mg/dL (70-110)
[2024-09-25 06:29] LABS: Absolute Eosinophils 0.1 10^3/cmm (0.0-0.7); Absolute Segmented Neutrophil 0.5 10/cmm (1.6-7.1); Band Neutrophils Absolute 0.6 10^3/cmm (0.0-1.2); Eosinophils 1 %; Lymphocytes 42 %; Lymphocytes Absolute 2.5 10^3/cmm (1.2-3.4); Monocytes Absolute 0.6 10^3/cmm (0.1-0.6); Segmented Neutrophils 8 %; Total Cells Counted 100 (0-100)
[2024-09-25 06:30] LABS: Anisocytosis Trace
[2024-09-25 06:31] LABS: Absolute Neutrophil 1.1 10^3/cmm (1.4-6.5); Giant Platelets 1+; Platelet Estimate Increased (Normal)
[2024-09-25] MEDS: metoprolol succinate ER (24 HR) 50 mg Tablet 25 MG PO (08:17)
[2024-09-25] MEDS: oxyCODONE 5 mg IR Tab/Cap 10 MG PO ×4 (08:17→21:55)
[2024-09-25] MEDS: amlodipine 5 mg Tablet 10 MG PO (08:17)
[2024-09-25] MEDS: clopidogrel 75 mg Tablet PO (08:18)
[2024-09-25] MEDS: famotidine 20 mg/2 mL INJ IVP ×2 (08:18→21:09)
[2024-09-25] MEDS: heparin 5,000 unit/mL INJ 1 mL 5000 UNIT SUBCUT ×2 (08:18→21:09)
[2024-09-25] MEDS: nicotine 21 mg Patch 1 PATCH TRANSDERMA (08:18)
[2024-09-25] MEDS: nystatin 100,000 unit/mL UDC 5 mL 400000 UNIT PO ×4 (08:18→21:09)
[2024-09-25] MEDS: clotrimazole 1% cream 30 gm 1 APPLIC TOPICAL ×2 (08:28→17:12)
[2024-09-25] MEDS: mupirocin oint 22 gm 1 APPLIC TOPICAL ×2 (08:28→17:12)
[2024-09-25] MEDS: ipratropium-albuterol 3 mL Neb INHALATION ×3 (09:13→19:56)
[2024-09-25 11:41] LABS: Glucose Point of Care 400 mg/dL (70-110)
[2024-09-25] MEDS: insulin lispro 100 unit/1 mL SUBCUT ×3 (12:20→21:14)
[2024-09-25] MEDS: micafungin 100 MG in sodium chloride 0.9% (plus) 100 ML IV (12:20)
[2024-09-25 16:46] LABS: Glucose Point of Care 159 mg/dL (70-110)
--- NOTE | 2024-09-25 20:46 | P.PN_ITS ---
Subjective 2 Subjective: She overall feels better. Malaise with improvement. Pain showing improvement, although still sore with mucositis. Vitals/I&O/Wt Last Vital Signs Temp 99.8 F H 09/25/24 19:59 Pulse 82 09/25/24 20:00 Resp 18 09/25/24 20:00 BP 168/75 09/25/24 19:59 Pulse Ox 97 09/25/24 20:00 O2 Del Method Room Air 09/25/24 20:00 O2 Flow Rate 2 09/17/24 02:25 09/25/24 09/25/24 09/25/24 06:59 14:59 22:59 Intake Total 100 / 680 820 / 820 120 / 940 Balance 100 / 680 820 / 820 120 / 940 Weight last 48 hrs Weight 72.484 kg Weight 72.32 kg Physical Exam 2 Const: COMMON NORMALS: patient oriented x3 and alert GENERAL APPEARANCE: c ooperative ORIENTATION/CONSCIOUSNESS: Yes awake HENMT: COMMON NORMALS: oropharynx normal OTHER: Oral mucositis patches on cheeks, lateral gums, part of hard and part of soft palate. Neck/C-Spine: COMMON NORMALS: no JVD Resp: COMMON NORMALS: normal respiratory effort and clear to auscultation bilaterally AUSCULTATION: clear to auscultation bilaterally Cardio: COMMON NORMALS: no JVD, regular rhythm, S1 normal heart sound present, S2 normal heart sound present and No murmurs present (Cardio) RHYTHM: regular rhythm HEART SOUNDS: S1 normal heart sound present and S2 normal heart sound present GI: COMMON NORMALS: Normal to inspection, nondistended, normoactive bowel sounds present, Soft to palpation and non-tender PALPATION: Yes Soft to palpation Extremity: COMMON NORMALS: no joint enlargement and no pedal edema Neuro: COMMON NORMALS: patient oriented x3 and moves all extremities S ENSORIUM/ORIENTATION: Yes alert Skin: NARRATIVE SKIN EXAM: Slowly improving, less erythematous desquamated rash in groin, under pannus, gluteal cleft, less pronounced under breasts. Currently no active bleeding. Data 09/25/24 05:24 09/25/24 05:24 A&P Assessment and plan (1) Candidiasis: (2) Abdominal wall cellulitis: (3) Chronic steroid use: (4) Hyperglycemia: (5) Acute on chronic renal insufficiency: (6) Diabetes mellitus: (7) Acute maculopapular rash: (8) Chronic pain syndrome: (9) Thrombocytopenia: Plan 73-year-old female on high-dose steroids for last 1 month with concerns of polymyalgia rheumatica presents with significant bilateral groin folds rash along with cellulitis and decreased oral intake because of odynophagia for last 1 week getting worse over last few days. Pancytopenia: Blood counts reviewed today, with rising neutrophils, resolution of severe neutropenia. Thrombocytopenia has resolved, although platelets are becoming elevated. RBC with improvement. Discussed with her, however, on recheck additional automated differential added findings of bandemia 11%, metamyelocytes 17%, myelocytes 7%, promyelocytes 2%, atypical lymphocytes 2%, eosinophils 1%, giant platelets 1+. I was notified in office tomorrow, please glass etcher helper should be back check with hematology possible, as this does have significant left shift, these lab studies may be secondary to severe inflammation, but hematologic malignancy may be a concern. Repeat blood counts. Reviewed blood culture, negative. Reviewed [facility] culture, noted Rosa albicans. Viral studies for VZV, pending. Resumed Plavix, resumed prophylactic heparin. Continue neutropenic precautions. Continue empiric antibiotic for now. Without suggestion of hemolysis. No suggestion of DIC. Low probability of TTP. Platelets improving. RBCs improving. Still neutropenic. Reassess counts. Reviewed peripheral smear. 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 Mucositis: Showing some improvement. Subjectively less painful and responding better to Phenaseptic spray. Still bothersome. Continue liquid diet for now. Nystatin swish and swallow. Phenaseptic spray. Magic mouthwash. Discussed with her steroid therapy. Discontinued Pulmicort. Full liquid diet. Aspiration precautions. Hypertension: Continue to treat pain. Increased amlodipine to 10 mg. Still hypertensive. Add hydralazine 10 mg 3 times daily. Reviewed BMP. CKD, creatinine patient at baseline. Rash: Gradually improving. including in abdominal skin folds, groins, gluteal cleft. Subsiding erythema, decreasing oozing. Decreasing pain. Underwent skin biopsy from the groin and abdominal wall area on 09/15. Underwent further skin biopsy from shoulder and thigh region on 09/16. Skin biopsy with findings suggestive of drug reaction, possibly methotrexate. However, still very bothersome mucositis. Continues with systemic steroid therapy as has shown some improvement. Monitor for risk of hyperglycemia, reviewed POC glucose, hypertension, encephalopathy, gastritis. Additionally discontinued pantoprazole, switched over to famotidine. Continue to withhold potential offending medication (suspected methotrexate) for continue IV steroid. Continue wound care. Currently has been hypoglycemic, continue hypoglycemia protocol. Oral intake as tolerating. Hold further insulin. Continue micafungin for concomitant severe candidiasis affecting multiple sites including bilateral groin folds, bilateral breast folds, buttock folds, oropharyngeal candidiasis with possibility of esophageal candidiasis given complaints of odynophagia. Continue oxycodone dose to 10 mg. Continue with IV morphine for severe breakthrough pain. Most likely this severity is related to recent steroid use over the past 1 month in addition to having uncontrolled hyperglycemia. Multiple shallow bleeding ulcerations noted over the above areas. Additionally signs of abdominal wall cellulitis particularly over the left lower abdomen. With development of new generalized rash. Patient has started oral fluconazole recently as outpatient without any significant improvement. HIV, hepatitis panel negative. A1c appreciated. CORI panel negative. Blood cultures so far negative. Reviewed Fungal culture, pending. Viral culture could not be obtained, HSV was obtained here, Reviewed and negative, VZV is being requested. Patient started on high-dose steroids with hydrocortisone 100 mg every 8 hourly equaling to 1 mg/kg body weight of prednisone on 09/16. Monitor for adverse effects, hyperglycemia, encephalopathy, gastritis, hypertension. Blood pressure noted elevated this morning as high as 203/85. Started on amlodipine. So far showing improvement down to 162/84. Continue to monitor blood pressure. Hypoglycemia: Reviewed POC glucose. Glucose improved. Continue steroid for now. Reassess. Not on long-acting insulin. Reviewed blood glucose. Hypoglycemia improved today. Received orange juice. Will hold further insulin for now. Discussed with nursing staff. Recheck blood glucose. Oral intake as tolerating. Hypoglycemia protocol. Patient showing slight improvement in transaminitis, stable renal functions and CBC for now with slight worsening in leukopenia. Hypoxia:Resolved. Saturating in the 90s on room air. Right upper lobe groundglass opacities. Underlying emphysema. LIZY on CKD: Creatinine worsening today. Most likely in setting of recent CTA, home use of ARB, new hydrochlorothiazide along with methotrexate. Baseline creatinine 1.4-1.8. Reassess chemistry. No sign of tumor lysis syndrome. Monitor BMP and electrolytes daily. Appreciate urine lites, urine creatinine and eosinophils. Monitor renal functions daily. Transaminitis: Treatment as above. Slight improvement. Liver ultrasound nodular contour. Hepatitis panel negative. Type 2 diabetes mellitus: Continue to monitor glucose. Sliding scale insulin. Reviewed POC glucose. Currently no room for long-acting insulin. Better control now. Continue with sliding scale before meals and at bedtime. Hypoglycemia protocol. Full code Full liquid diet SCD for DVT prophylaxis. Holding off on medical prophylaxis patient developing thrombocytopenia. SCDs. Protonix OPD prophylaxis Attestations 2 Medical Necessity Statement*: Continue admission for assessment management of moderate to severe drug reaction, disseminated candidiasis, severe neutropenia. and High MDM includes described risk of complication, morbidity or mortality of management as documented Diagnoses Candidiasis B37.9 Abdominal wall cellulitis L03.311 Chronic steroid use Hyperglycemia R73.9 Acute on chronic renal insufficiency N28.9; N18.9 Diabetes mellitus E11.9 Acute maculopapular rash R21 Chronic pain syndrome G89.4 Thrombocytopenia D69.6
[2024-09-25 21:09] LABS: Glucose Point of Care 153 mg/dL (70-110)
[2024-09-25] MEDS: hyDRALAzine 10 mg Tablet PO (21:26)
[2024-09-26] VITALS (10 sets, daily range): BP systolic 127–177; BP diastolic 67–78; PULSE 67–86; RESP 15–18; TEMP 36.5–37.4; O2SAT 92–98
[2024-09-26] MEDS: oxyCODONE 5 mg IR Tab/Cap 10 MG PO (01:46)
[2024-09-26] MEDS: hyDROXYzine 25 mg Capsule PO ×2 (01:48→21:56)
[2024-09-26] MEDS: lidocaine 2% viscous 15 ML, diphenhydrAMINE oral liq 37.5 MG, aluminum-mag hydrox-simet... MUCOUS MEM ×3 (04:43→19:07)
[2024-09-26] MEDS: hydrocortisone 100 mg/2 mL SDV IVP (04:43)
[2024-09-26 05:42] LABS: Basophils % 0.1 %; Eosinophils % 0.2 %; Hematocrit 30.9 % (36-47); Lymphocytes # 1.2 10^3/uL (0.8-4.8); Lymphocytes % 12.2 %; Mean Corpuscular HGB Conc 31.7 g/dL (30-55); Mean Corpuscular Hemoglobin 29.1 pg (27-33); Mean Corpuscular Volume 91.7 fl (85-98); Mean Platelet Volume 9.3 fL (7.4-10.4); Monocytes # 1.7 10^3/uL (0.2-0.9); Monocytes % 16.9 %; Neutrophils % 20.2 %; Nucleated Red Blood Cells # 0.1 /100WBC; Nucleated Red Blood Cells % 0.7 %; Platelet Count 878 10^3/cmm (157-399); Red Blood Count 3.37 10^6/uL (3.85-5.65); Red Cell Distribution Width 15.3 % (12.1-15.1); White Blood Count 9.89 10^3/uL (3.29-11.43)
[2024-09-26 05:56] LABS: Alanine Aminotransferase 27 U/L (0-33); Albumin Level 2.9 g/dL (3.5-5.2); Alkaline Phosphatase 130 U/L (35-105); Anion Gap 14.3 (5-19); Aspartate Amino Transferase 20 U/L (0-32); Blood Urea Nitrogen 28 mg/dL (8-23); Calcium 8.6 mg/dL (8.5-10.5); Carbon Dioxide 32 mmol/L (22-29); Chloride 94 mmol/L (98-107); Creatinine Clr Calc Pharmacy 34.4022; Globulin 3.2 g/dL (1.3-4.6); Glucose 157 mg/dL (65-115); Osmolality Calculated 293 mOsm/kg (285-295); Potassium 3.3 mmol/L (3.5-5.1); Sodium 137 mmol/L (136-145); Total Bilirubin 0.2 mg/dL (0.15-1.2); Total Protein 6.1 g/dL (6.6-8.7)
[2024-09-26] MEDS: cefepime 1,000 mg SDV 1000 MG IV (06:01)
[2024-09-26 06:06] LABS: Slide Review Slide Review Perform
[2024-09-26 06:32] LABS: Glucose Point of Care 177 mg/dL (70-110)
[2024-09-26] MEDS: ipratropium-albuterol 3 mL Neb INHALATION ×3 (08:57→20:39)
[2024-09-26] MEDS: amlodipine 5 mg Tablet 10 MG PO (09:44)
[2024-09-26] MEDS: nicotine 21 mg Patch 1 PATCH TRANSDERMA (09:44)
[2024-09-26] MEDS: nystatin 100,000 unit/mL UDC 5 mL 400000 UNIT PO ×3 (09:44→19:08)
[2024-09-26] MEDS: clopidogrel 75 mg Tablet PO (09:45)
[2024-09-26] MEDS: famotidine 20 mg/2 mL INJ IVP ×2 (09:45→20:44)
[2024-09-26] MEDS: heparin 5,000 unit/mL INJ 1 mL 5000 UNIT SUBCUT ×2 (09:45→19:09)
[2024-09-26] MEDS: insulin lispro 100 unit/1 mL SUBCUT ×4 (09:45→21:57)
[2024-09-26] MEDS: mupirocin oint 22 gm 1 APPLIC TOPICAL (09:46)
[2024-09-26] MEDS: clotrimazole 1% cream 30 gm 1 APPLIC TOPICAL (09:46)
[2024-09-26] MEDS: albumin 25 G/100 ML BAG 60 G IV ×2 (10:06→20:44)
[2024-09-26] MEDS: potassium chloride oral liq 20 mEq/15 mL UDC 40 MEQ PO (10:11)
[2024-09-26] MEDS: hyDRALAzine 25 mg Tablet PO ×3 (10:12→21:56)
[2024-09-26] MEDS: hydrocortisone 100 mg/2 mL SDV 50 MG IVP ×2 (10:12→19:05)
[2024-09-26] MEDS: valACYclovir 1,000 mg Tablet 500 MG PO ×2 (10:12→19:10)
[2024-09-26 10:51] LABS: Glucose Point of Care 383 mg/dL (70-110)
[2024-09-26] MEDS: micafungin 100 MG in sodium chloride 0.9% (plus) 100 ML IV (12:55)
[2024-09-26] MEDS: sucralfate 1 gm/10 mL Oral Liq UDC PO ×2 (12:56→19:10)
--- NOTE | 2024-09-26 13:52 | PC.SOCIAL ---
IMM Updated Updated pt on IMM. No questions voiced. Provided pt a copy. Initialed, dated, & timed copy in chart.
--- NOTE | 2024-09-26 15:44 | PM.PN ---
Subjective Subjective: Hospital course, labs appreciated. Today morning patient seen sitting at edge of the bed. States she is feeling a lot better. States her wounds are healing. Denies any nausea, vomiting, headache. Able to tolerate orally better. States pain is well-controlled. Medications: Reviewed: Yes Vitals/I&O/Wt Last Vital Signs Temp 97.7 F 09/26/24 12:40 Pulse 73 09/26/24 13:54 Resp 16 09/26/24 13:54 BP 127/67 09/26/24 12:40 Pulse Ox 98 09/26/24 13:54 O2 Del Method Room Air 09/26/24 13:54 O2 Flow Rate 2 09/17/24 02:25 09/26/24 09/26/24 09/26/24 06:59 14:59 22:59 Intake Total 0 / 1060 1160 / 1160 Output Total 200 / 200 Balance -200 / 860 1160 / 1160 Weight last 48 hrs Weight 71.668 kg Weight 72.484 kg Physical Exam Narrative: General: No acute distress, AO x3 HEENT: PERRLA, oropharyngeal candidiasis present Chest: Normal vesicular breath sounds, no added sounds, equal good air entry bilaterally. CVS: S1-S2 regular, no murmurs, no tachycardia, no gallops, no rubs Abdomen: Soft, nontender, no organomegaly, bowel sounds present. Bilateral diffuse groin folds with excoriation. Multiple shallow Healing ulcers noted bilaterally, worse over left side of the abdomen. Cellulitis improving. No active bleeding. Various satellite lesions maculopapular in nature without central necrosis seen now. Neuro: No focal deficits, no facial deformity, AO x3, power 5/5 in all limbs Extremities. Bleeding shallow ulceration over bilateral breast folds, right worse than left. Erythema involving skin fold between bilateral buttocks. Secretions noted over this area. 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 Pancytopenia: Blood counts reviewed today, with rising neutrophils, resolution of severe neutropenia. Thrombocytopenia has resolved, although platelets are becoming elevated. RBC with improvement. Discussed with her, however, on recheck additional automated differential added findings of bandemia 11%, metamyelocytes 17%, myelocytes 7%, promyelocytes 2%, atypical lymphocytes 2%, eosinophils 1%, giant platelets 1+. I was notified in office tomorrow, please charge account authorizer should be back check with hematology possible, as this does have significant left shift, these lab studies may be secondary to severe inflammation, but hematologic malignancy may be a concern. Repeat blood counts. Reviewed blood culture, negative. Reviewed Diamnate culture, noted Rosa albicans. Viral studies for VZV, pending. Resumed Plavix, resumed prophylactic heparin. Continue neutropenic precautions. Continue empiric antibiotic for now. Without suggestion of hemolysis. No suggestion of DIC. Low probability of TTP. Platelets improving. RBCs improving. Still neutropenic. Reassess counts. Reviewed peripheral smear. 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 Mucositis: Showing some improvement. Subjectively less painful and responding better to Phenaseptic spray. Still bothersome. Continue liquid diet for now. Nystatin swish and swallow. Phenaseptic spray. Magic mouthwash. Discussed with her steroid therapy. Discontinued Pulmicort. Full liquid diet. Aspiration precautions. Hypertension: Continue to treat pain. Increased amlodipine to 10 mg. Still hypertensive. Add hydralazine 10 mg 3 times daily. Reviewed BMP. CKD, creatinine patient at baseline. Rash: Gradually improving. including in abdominal skin folds, groins, gluteal cleft. Subsiding erythema, decreasing oozing. Decreasing pain. Underwent skin biopsy from the groin and abdominal wall area on 09/15. Underwent further skin biopsy from shoulder and thigh region on 09/16. Skin biopsy with findings suggestive of drug reaction, possibly methotrexate. However, still very bothersome mucositis. Continues with systemic steroid therapy as has shown some improvement. Monitor for risk of hyperglycemia, reviewed POC glucose, hypertension, encephalopathy, gastritis. Additionally discontinued pantoprazole, switched over to famotidine. Continue to withhold potential offending medication (suspected methotrexate) for continue IV steroid. Continue wound care. Currently has been hypoglycemic, continue hypoglycemia protocol. Oral intake as tolerating. Hold further insulin. Continue micafungin for concomitant severe candidiasis affecting multiple sites including bilateral groin folds, bilateral breast folds, buttock folds, oropharyngeal candidiasis with possibility of esophageal candidiasis given complaints of odynophagia. Continue oxycodone dose to 10 mg. Continue with IV morphine for severe breakthrough pain. Most likely this severity is related to recent steroid use over the past 1 month in addition to having uncontrolled hyperglycemia. Multiple shallow bleeding ulcerations noted over the above areas. Additionally signs of abdominal wall cellulitis particularly over the left lower abdomen. With development of new generalized rash. Patient has started oral fluconazole recently as outpatient without any significant improvement. HIV, hepatitis panel negative. A1c appreciated. CORI panel negative. Blood cultures so far negative. Reviewed Fungal culture, pending. Viral culture could not be obtained, HSV was obtained here, Reviewed and negative, VZV is being requested. Patient started on high-dose steroids with hydrocortisone 100 mg every 8 hourly equaling to 1 mg/kg body weight of prednisone on 09/16. Monitor for adverse effects, hyperglycemia, encephalopathy, gastritis, hypertension. Blood pressure noted elevated this morning as high as 203/85. Started on amlodipine. So far showing improvement down to 162/84. Continue to monitor blood pressure. Hypoglycemia: Reviewed POC glucose. Glucose improved. Continue steroid for now. Reassess. Not on long-acting insulin. Reviewed blood glucose. Hypoglycemia improved today. Received orange juice. Will hold further insulin for now. Discussed with nursing staff. Recheck blood glucose. Oral intake as tolerating. Hypoglycemia protocol. Patient showing slight improvement in transaminitis, stable renal functions and CBC for now with slight worsening in leukopenia. Hypoxia:Resolved. Saturating in the 90s on room air. Right upper lobe groundglass opacities. Underlying emphysema. LIZY on CKD: Creatinine worsening today. Most likely in setting of recent CTA, home use of ARB, new hydrochlorothiazide along with methotrexate. Baseline creatinine 1.4-1.8. Reassess chemistry. No sign of tumor lysis syndrome. Monitor BMP and electrolytes daily. Appreciate urine lites, urine creatinine and eosinophils. Monitor renal functions daily. Transaminitis: Treatment as above. Slight improvement. Liver ultrasound nodular contour. Hepatitis panel negative. Type 2 diabetes mellitus: Continue to monitor glucose. Sliding scale insulin. Reviewed POC glucose. Currently no room for long-acting insulin. Better control now. Continue with sliding scale before meals and at bedtime. Hypoglycemia protocol. Plan for the day: Patient showing significant improvement in the lesions and rash. Continue with micafungin to finish a 10-day course. Last dose on 09/27. Cellulitis have resolved. Discontinue cefepime. Patient has been on high-dose steroids for more than 10 days. Will switch to hydrocortisone 50 mg every 8 hourly. Patient has been on high-dose steroids for more than 4 to 5 weeks now. Would benefit from prophylaxis for PJP but for now we will hold off on Bactrim because of resolving renal functions and atovaquone as patient is recovering from drug reaction. Will need to follow-up as an outpatient with dermatology. Renal functions are back to baseline. Transaminitis is resolving. Resolution of thrombocytopenia. No neutropenia today. Hemoglobin stable. Abnormal CBC most likely reactive in nature from severe stress given high concerns for SJS/TN Continue with liquid diet. Leukocytosis seems to be improving. No further episodes of hemoptysis. Continue with famotidine twice daily. Add Carafate ACHS. 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 Start on valacyclovir 500 mg twice daily. Goal blood pressure less than 140/90 mmHg. Continue with hydralazine 25 mg 3 times daily. Start on Coreg 6.25 mg twice daily. Uptitrate as for goal blood pressures. Physical therapy. Discharge plan: Plan to discharge in next 24 to 48 hours if patient continues to show improvement in her blood work and clinically. 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
[2024-09-26 16:46] LABS: Glucose Point of Care 190 mg/dL (70-110)
[2024-09-26] MEDS: carvedilol 6.25 mg Tablet PO (19:09)
[2024-09-26 21:01] LABS: Glucose Point of Care 153 mg/dL (70-110)
[2024-09-27] VITALS (9 sets, daily range): BP systolic 111–177; BP diastolic 64–84; PULSE 54–82; RESP 14–18; TEMP 34.8–36.9; O2SAT 92–99
[2024-09-27] MEDS: glucagon 1 mg/mL KIT 1 mL IM (00:03)
[2024-09-27 00:24] LABS: Glucose Point of Care 56 mg/dL (70-110)
[2024-09-27 00:24] LABS: Glucose Point of Care 32 mg/dL (70-110)
[2024-09-27 00:29] LABS: Glucose Point of Care 111 mg/dL (70-110)
[2024-09-27 00:51] LABS: Glucose Point of Care 140 mg/dL (70-110)
[2024-09-27 01:09] LABS: Glucose Point of Care 190 mg/dL (70-110)
--- NOTE | 2024-09-27 01:11 | PC.NURSE ---
This ENVELOPE CUTTER along with several other staff members heard yelling of unintelligible words coming from room 255. Upon inspection, this ENVELOPE CUTTER found the patient curled up on the floor near the wall, talking and rolling around but making no sense. The patient was disoriented and her skin and gown were wet. This ENVELOPE CUTTER tried to speak to the patient but she did not understand the questions. This ENVELOPE CUTTER then told the nurse that the patient was on the floor. GRICEL Woody got the patients vitals and this ENVELOPE CUTTER got the blood glucose which was 32. The nurse was informed and care was taken over from there.
[2024-09-27] MEDS: heparin 5,000 unit/mL INJ 1 mL 5000 UNIT SUBCUT ×2 (01:54→08:31)
[2024-09-27] MEDS: hydrocortisone 100 mg/2 mL SDV 50 MG IVP ×2 (01:54→08:28)
[2024-09-27 02:09] LABS: Glucose Point of Care 227 mg/dL (70-110)
[2024-09-27] MEDS: albumin 25 G/100 ML BAG 60 G IV (04:11)
--- NOTE | 2024-09-27 04:57 | PC.NURSE ---
It is not confirmed that patient actually fell, as she is close to the nurses station with door open. She was not heard falling or hitting the floor. Patient was just calling out in distress so PERFORMANCE MAKEUP ARTIST went to check on patient she was found on the floor across the room, rolling from side to side, diaphoretic and speaking unintelligibly. We immediately got vitals and blood sugar. Pt was following commands but very disoriented. Vitals 173/84 HR64 RR18 O2 99%. Blood sugar 32. She was able to sit up and drink apple juice. Pt was physically assessed at this time and no contusion noted on face/head or other area of body. After drinking a juice she was transferred to the bed where an IV was placed (she had pulled out IV getting out of bed). Pt was difficult to get an IV on initially so glucagon IM was given by Juan Conn RN. Pt also drank another apple juice during this time. Second blood sugar taken 15 min after glucagon and juice was 56, after 15 more mins it was 111, 15 more min 190. No new orders from [facility] at this time of updating on pt condition.
[2024-09-27 06:27] LABS: Glucose Point of Care 174 mg/dL (70-110)
[2024-09-27 07:31] LABS: Hematocrit 26.6 % (36-47); Mean Corpuscular HGB Conc 31.2 g/dL (30-55); Mean Corpuscular Hemoglobin 28.3 pg (27-33); Mean Corpuscular Volume 90.8 fl (85-98); Mean Platelet Volume 9.3 fL (7.4-10.4); Platelet Count 736 10^3/cmm (157-399); Red Blood Count 2.93 10^6/uL (3.85-5.65); Red Cell Distribution Width 15.2 % (12.1-15.1); White Blood Count 10.72 10^3/uL (3.29-11.43)
[2024-09-27 07:46] LABS: Alanine Aminotransferase 22 U/L (0-33); Albumin Level 3.4 g/dL (3.5-5.2); Alkaline Phosphatase 107 U/L (35-105); Anion Gap 14.9 (5-19); Aspartate Amino Transferase 23 U/L (0-32); Blood Urea Nitrogen 31 mg/dL (8-23); Calcium 8.6 mg/dL (8.5-10.5); Carbon Dioxide 30 mmol/L (22-29); Chloride 97 mmol/L (98-107); Creatinine Clr Calc Pharmacy 41.3779; Globulin 2.2 g/dL (1.3-4.6); Glucose 164 mg/dL (65-115); Osmolality Calculated 298 mOsm/kg (285-295); Sodium 139 mmol/L (136-145); Total Bilirubin 0.4 mg/dL (0.15-1.2); Total Protein 5.6 g/dL (6.6-8.7)
[2024-09-27] MEDS: ipratropium-albuterol 3 mL Neb INHALATION (08:19)
[2024-09-27 08:20] LABS: Potassium 2.9 mmol/L (3.5-5.1)
[2024-09-27] MEDS: famotidine 20 mg/2 mL INJ IVP (08:28)
[2024-09-27 08:29] LABS: Absolute Segmented Neutrophil 5.7 10/cmm (1.6-7.1); Add RBC Morph No; Band Neutrophils Absolute 1.2 10^3/cmm (0.0-1.2); Segmented Neutrophils 53 %; Slide Review Slide Review Perform; Total Cells Counted 100 (0-100)
[2024-09-27] MEDS: clopidogrel 75 mg Tablet PO (08:29)
[2024-09-27] MEDS: amlodipine 5 mg Tablet 10 MG PO (08:29)
[2024-09-27] MEDS: nystatin 100,000 unit/mL UDC 5 mL 400000 UNIT PO (08:29)
[2024-09-27] MEDS: hyDROXYzine 25 mg Capsule PO (08:29)
[2024-09-27] MEDS: sucralfate 1 gm/10 mL Oral Liq UDC PO ×2 (08:29→10:22)
[2024-09-27 08:30] LABS: Absolute Neutrophil 6.9 10^3/cmm (1.4-6.5); Eosinophils 0 %; Lymphocytes 12 %; Lymphocytes Absolute 1.5 10^3/cmm (1.2-3.4); Macrocytosis 1+; Microcytosis 1+; Monocytes Absolute 0.3 10^3/cmm (0.1-0.6); Platelet Estimate Increased (Normal)
[2024-09-27] MEDS: carvedilol 6.25 mg Tablet PO (08:30)
[2024-09-27] MEDS: hyDRALAzine 25 mg Tablet PO (08:30)
[2024-09-27] MEDS: nicotine 21 mg Patch 1 PATCH TRANSDERMA (08:30)
[2024-09-27] MEDS: valACYclovir 1,000 mg Tablet 500 MG PO (08:30)
[2024-09-27] MEDS: mupirocin oint 22 gm 1 APPLIC TOPICAL (08:31)
[2024-09-27] MEDS: clotrimazole 1% cream 30 gm 1 APPLIC TOPICAL (08:32)
[2024-09-27 08:34] LABS: Glucose Point of Care 171 mg/dL (70-110)
[2024-09-27 09:17] LABS: Magnesium 1.9 mg/dL (1.7-2.3)
[2024-09-27] MEDS: lidocaine 2% viscous 15 ML, diphenhydrAMINE oral liq 37.5 MG, aluminum-mag hydrox-simet... MUCOUS MEM (10:22)
[2024-09-27] MEDS: magnesium sulfate premix 1 GM/100 ML PIGGYBACK IV (10:22)
[2024-09-27] MEDS: potassium chloride oral liq 20 mEq/15 mL UDC 80 MEQ PO (10:22)
--- NOTE | 2024-09-27 10:29 | P.DS_ITS ---
Discharge Providers 2 Date of Admission: 09/13/24 05:20 Date of Discharge: September 27, 2024 Attending Provider at Admission: Zeynep Maguire MD Attending Provider at Discharge: Anand Kat MD Consults: Surgery: Dr. 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 (3) Acute on chronic renal insufficiency: Status: Acute (4) Transaminitis: Status: Acute (5) Thrombocytopenia: Status: Acute (6) Neutropenia: Status: Acute (7) Candidiasis: Status: Acute (8) Abdominal wall cellulitis: Status: Acute (9) Chronic steroid use: Status: Acute (10) Hyperglycemia: Status: Acute (11) Diabetes mellitus: Status: Inactive (12) Acute maculopapular rash: Status: Acute (13) Chronic pain syndrome: Status: Chronic (14) Left subclavian artery occlusion: Status: Acute (15) 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 She is presenting to the hospital with chief complaints of worsening candidiasis over bilateral groin folds, under the breasts, and buttocks. Additionally has oropharyngeal candidiasis. States that she has had progressive odynophagia to the point where she is not able to eat or drink anything currently. Patient was recently diagnosed with a presumptive diagnosis of PMR and has been on steroid taper since August 16, 2024. Initially started off with prednisone 50 mg p.o. daily which is being tapered down currently to 20 mg p.o. daily and followed by patient's primary care physician. It appears she did require a recently increased dose of 50 mg p.o. daily due to a flare of arthritis in her right hand for a few days. She developed candidiasis recently for which she presented into the emergency room on 09/11/2024 and was started on fluconazole. Her symptoms have continued to worsen, to the point where she has multiple bleeding ulcers over bilateral groin folds and under her breast. These are extremely painful. There is signs of cellulitis over the lower abdomen additionally. As per the history provided by patient and patient's son at bedside and review of chart, patient had been on Celebrex for a long time for joint pains which were discontinued very recently in June because of heme positive stool. She has undergone an upper and lower endoscopy since then. It appears she was detected to have colonic polyps which were removed. Do not have the results for direct review at this present time. With discontinuation of NSAIDs, it seems she had developed migrating joint effusions with sedimentation rate of 46 and CRP of 75, negative CORI and RA factor on workup and therefore started high-dose steroids. 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 She is scheduled to see vascular surgery as an outpatient. Of note she has widely varying blood pressures as a result of this occlusion. Her right arm is a reliable site to take blood pressure. She denies any fever or chills currently. Today she is noted to have signs of LIZY on CKD, transaminitis on labs. Hospital Course Hospital Course Patient was admitted to the hospital with concerns for severe candidal infection with maculopapular rash with concerns for poor oral intake secondary to severe mucositis along with concerns for thrush. At first she was started on IV fluconazole, her home dose of steroids were lowered. On admission she was also found to have uncontrolled hyperglycemia which was managed with insulin and IV fluids. Patient continued to have significant pain at the rash with each dressing change. During hospitalization she developed worsening of transaminitis, LIZY on CKD, thrombocytopenia with worsening of rash and developing or new satellite lesions away from skin folds with concerns for central necrosis. 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 On further review with patient and patient's family it seems she was recently started on IV methotrexate and hydrochlorothiazide around 2 weeks prior to her developing the rash. She was started on high-dose steroids with concerns for TEN/SJS/dress syndrome. Fluconazole was changed over to micafungin. Gradually while being on high-dose steroids her rash started improving with resolution of her thrombocytopenia, transaminitis and LIZY. She did develop neutropenia which gradually improved as well. It is believed her thrombocytosis with neutropenia is most likely in setting of marrow reactivation while being on high-dose steroids. Her neutropenia has resolved. Patient has been working well with physical therapist. During hospitalization her antihypertensives were adjusted and currently she has been discharged on hydralazine 25 3 times daily, carvedilol 6.25 twice daily, amlodipine 10 mg oral daily. Her oral intake has been improving. She has finished 10-day course of micafungin. She has been started on Valtrex 500 twice daily for HSV keratitis. She has been discharged in hemodynamically stable condition with adjusted medications, 10 days of Valtrex, prednisone 10 mg 3 times daily Carafate AC at bedtime with advised to follow-up with dermatology as an outpatient and her primary care provider within the next 1 week. She is to continue taking her current dose of steroids till seen by dermatology team. Her care discussed in detail with patient and patient's son at bedside and all the questions were answered. Physical Exam 2 Narrative: General: No acute distress, AO x3 HEENT: PERRLA, oropharyngeal candidiasis present Chest: Normal vesicular breath sounds, no added sounds, equal good air entry bilaterally. CVS: S1-S2 regular, no murmurs, no tachycardia, no gallops, no rubs Abdomen: Soft, nontender, no organomegaly, bowel sounds present. Bilateral diffuse groin folds with excoriation. Multiple shallow Healing ulcers noted bilaterally, worse over left side of the abdomen. Cellulitis improving. No active bleeding. Various satellite lesions maculopapular in nature without central necrosis seen now. Neuro: No focal deficits, no facial deformity, AO x3, power 5/5 in all limbs Extremities. Bleeding shallow ulceration over bilateral breast folds, right worse than left. Erythema involving skin fold between bilateral buttocks. Secretions noted over this area. Skin: OTHER: 09/16 Right thigh Discharge Data Studies Completed and Pending Completed Studies During Hospitalization Category [place] [id number] Routine Cat Scan 09/16/24 15:36 Completed XR chest 1V portable [id number] Routine Exams 09/14/24 13:32 Completed Pathology: Surgical [PTH] Stat Pth 09/15/24 09:03 [place] liver [id number] Routine Ultrasound 09/15/24 10:34 Completed Pending at discharge Category Date Time Status Fungal Culture Hair/Skin/Nail Routine Lab 09/14/24 19:26 Results Fungal Culture Hair/Skin/Nail Routine Lab 09/16/24 12:05 Results Fungal Culture Hair/Skin/Nail Routine Lab 09/16/24 12:05 Results Miscellaneous Test Routine Lab 09/19/24 11:45 Received Viral Culture Body Flds,Tissue Routine Lab 09/19/24 11:45 Received Radiology Impressions Chest X-Ray 09/14/24 13:32 IMPRESSION: No acute findings. Liver Ultrasound 09/15/24 10:34 IMPRESSION: 1. Gallbladder is surgically absent. 2. Slightly nodular contour to the liver which has a coarsened echotexture. Findings suspicious for cirrhosis. 3. Somewhat small right kidney which appears to be echogenic suspicious for medical renal disease. Chest/Abdomen/Pelvis CT 09/16/24 15:36 IMPRESSION: 1. Scattered right upper and middle lobe ground-glass opacities are nonspecific and can be seen with pneumonia and/or pulmonary edema. 2. Pulmonary emphysema. 3. Multivessel atherosclerotic disease which involves the coronary arteries. 4. Moderate-sized hiatal hernia. 5. There is complex fluid in the esophagus consistent with reflux. IMPRESSION: No acute findings.Non acute findings as described above. Laboratory Results WBC 10.72 10^3/uL (3.29-11.43) 09/27/24 07:11 Corrected WBC 1.0 10^3/cmm (4.8-10.8) L 09/21/24 05:17 RBC 2.93 10^6/uL (3.85-5.65) L 09/27/24 07:11 Hgb 8.30 g/dL (11.27-16.99) L 09/27/24 07:11 Hct 26.6 % (36-47) L 09/27/24 07:11 MCV 90.8 fl (85-98) 09/27/24 07:11 MCH 28.3 pg (27-33) 09/27/24 07:11 MCHC 31.2 g/dL (30-55) 09/27/24 07:11 RDW 15.2 % (12.1-15.1) H 09/27/24 07:11 Plt Count 736 10^3/cmm (157-399) H 09/27/24 07:11 MPV 9.3 fL (7.4-10.4) 09/27/24 07:11 Neut % (Auto) 20.2 % 09/26/24 05:15 Lymph % (Auto) Not Reportable 09/27/24 07:11 [place] % (Auto) Not Reportable 09/27/24 07:11 Eos % (Auto) 0.2 % 09/26/24 05:15 Baso % (Auto) 0.1 % 09/26/24 05:15 Reticulocyte % (Auto) 3.1 % (0.5-2.0) H 09/19/24 04:51 Neut # (Auto) 2.00 10^3/uL (1.8-7.7) 09/26/24 05:15 Lymph # (Auto) Not Reportable 09/27/24 07:11 [place] # (Auto) Not Reportable 09/27/24 07:11 Eos # (Auto) 0.0 10^3/uL (0.0-0.8) 09/26/24 05:15 Baso # (Auto) 0.0 10^3/uL (0.0-0.1) 09/26/24 05:15 Nucleated RBC % (auto) 0.7 % 09/26/24 05:15 Total Counted 100 (0-100) 09/27/24 07:11 Atypical Lymphs % 2.0 % (0-5) 09/27/24 07:11 Absolute Neutrophils 6.9 10^3/cmm (1.4-6.5) H 09/27/24 07:11 Segmented Neutrophils 53 % 09/27/24 07:11 Band Neutrophils 11.0 % 09/27/24 07:11 Absolute Lymphocytes 1.5 10^3/cmm (1.2-3.4) 09/27/24 07:11 Lymphocytes (Manual) 12 % 09/27/24 07:11 Monocytes (Manual) 3.0 % 09/27/24 07:11 Absolute Monocytes 0.3 10^3/cmm (0.1-0.6) 09/27/24 07:11 Eosinophils (Manual) 0 % 09/27/24 07:11 Absolute Eosinophils 0.0 10^3/cmm (0.0-0.7) 09/27/24 07:11 Basophils (Manual) 0.0 % 09/27/24 07:11 Absolute Basophils 0.0 10^3/cmm (0.0-0.2) 09/27/24 07:11 Metamyelocytes 4.0 % 09/27/24 07:11 Myelocytes 13.0 % 09/27/24 07:11 Promyelocytes 2.0 % 09/27/24 07:11 Nucleated RBCs 1.0 /100WBC (0-1) 09/25/24 05:24 Nucleated RBCs # 0.1 /100WBC 09/26/24 05:15 Pathologist Review No 09/14/24 04:41 Platelet Estimate Increased (Normal) H 09/27/24 07:11 Giant Platelets 1+ H 09/25/24 05:24 Anisocytosis Trace 09/25/24 05:24 Microcytosis 1+ H 09/27/24 07:11 Macrocytosis 1+ H 09/27/24 07:11 Peripher Smr Path Cons Sent for review 09/21/24 05:17 ESR 41 mm/hr (0-15) H 09/13/24 04:40 Retic Production Index 1.94 09/19/24 04:51 Haptoglobin 172.0 mg/L (30-200) 09/20/24 04:58 Heparin Require Pat 0.015 09/16/24 12:30 PT 13.50 SECONDS (12.1-14.9) 09/19/24 09:37 INR 1.00 (0.8-1.2) 09/19/24 09:37 APTT 22.5 SECONDS (23.9-36.7) L 09/19/24 09:37 Fibrinogen 513 mg/dL (174-498) H 09/19/24 09:37 Fibrin Degrad Products <5 mcg/mL (LESS THAN 5) 09/19/24 09:43 D-Dimer 1.48 ug/mLFEU (0-0.59) H 09/19/24 09:37 Sodium 139 mmol/L (136-145) 09/27/24 07:11 Potassium 2.9 mmol/L (3.5-5.1) L 09/27/24 07:11 Chloride 97 mmol/L (98-107) L 09/27/24 07:11 Carbon Dioxide 30 mmol/L (22-29) H 09/27/24 07:11 Anion Gap 14.9 (5-19) 09/27/24 07:11 BUN 31 mg/dL (8-23) H 09/27/24 07:11 Creatinine 1.3 mg/dL (0.5-0.9) H 09/27/24 07:11 GFR Calculation Not Reportable 09/27/24 07:11 Glucose 164 mg/dL (65-115) H 09/27/24 07:11 POC Glucose 171 mg/dL (70-110) H 09/27/24 08:14 Estimat Average Glucose 237 09/13/24 04:40 Hemoglobin A1c 9.9 % (4.0-6.0) H 09/13/24 04:40 Calculated Osmolality 298 mOsm/kg (285-295) H 09/27/24 07:11 Calcium 8.6 mg/dL (8.5-10.5) 09/27/24 07:11 Magnesium 1.9 mg/dL (1.7-2.3) 09/27/24 07:11 Iron 33 ug/dL (37-145) L 09/13/24 13:15 TIBC 209 mcg/dl 09/13/24 13:15 % Saturation 15.7 % (20-50) L 09/13/24 13:15 Unsat Iron Binding 176 ug/dL (112-347) 09/13/24 13:15 Total Bilirubin 0.4 mg/dL (0.15-1.2) 09/27/24 07:11 AST 23 U/L (0-32) 09/27/24 07:11 ALT 22 U/L (0-33) 09/27/24 07:11 Alkaline Phosphatase 107 U/L (35-105) H 09/27/24 07:11 Lactate Dehydrogenase 257 U/L (135-214) H 09/19/24 04:51 Creatine Kinase 77 U/L (26-192) 09/13/24 13:15 C-Reactive Protein 88.1 mg/L (0.0-4.9) H 09/13/24 04:40 Total Protein 5.6 g/dL (6.6-8.7) L 09/27/24 07:11 Albumin 3.4 g/dL (3.5-5.2) L 09/27/24 07:11 Globulin 2.2 g/dL (1.3-4.6) 09/27/24 07:11 Triglycerides 122 mg/dL (0-150) 09/14/24 04:41 Cholesterol 147 mg/dL (0-200) 09/14/24 04:41 LDL Cholesterol, Calc 35 mg/dL (50-129) L 09/14/24 04:41 Total VLDL Cholesterol 24 mg/dL (0-30) 09/14/24 04:41 HDL Cholesterol 88 mg/dL (60-100) 09/14/24 04:41 Cholesterol/HDL Ratio 1.67 mg/dL (0.0-4.40) 09/14/24 04:41 Vitamin B12 956 pg/mL (232-1245) 09/13/24 13:15 Folate > 20.0 ng/mL (4.8-37.3) 09/14/24 04:41 Procalcitonin 0.19 ng/mL (0-0.5) 09/13/24 13:15 TSH 1.53 uIU/mL (0.27-4.20) 09/13/24 04:40 Urine Color Yellow (Yellow) 09/17/24 23:42 Urine Appearance Clear (CLEAR) 09/17/24 23:42 Urine pH 5.0 (5-7) 09/17/24 23:42 Ur Specific [place] 1.020 (1.005-1.030) 09/17/24 23:42 Urine Protein 3+ (Negative) A 09/17/24 23:42 Urine Glucose (UA) Trace (Normal) H 09/17/24 23:42 Urine Ketones Negative (Negative) 09/17/24 23:42 Urine Blood 1+ (Negative) A 09/17/24 23:42 Urine Nitrate Negative (Negative) 09/17/24 23:42 Urine Bilirubin Negative (Negative) 09/17/24 23:42 Urine Urobilinogen 0.2 mg/dL (Negative) 09/17/24 23:42 Ur Leukocyte Esterase 1+ (Negative) A 09/17/24 23:42 Urine RBC 0-2 /hpf (0-2) 09/17/24 23:42 Urine WBC 6-10 /hpf (0-5) 09/17/24 23:42 Ur Eosinophil Smear 0 (0-0) 09/17/24 23:42 Ur Squamous Epith Cells 0-5 /hpf (0-5) 09/17/24 23:42 Amorphous Sediment Not Reportable 09/17/24 23:42 Urine Bacteria None seen /hpf (NONE) 09/17/24 23:42 Hyaline Casts 13.22 /lpf 09/17/24 23:42 Urine Eosinophils No eosinophils seen 09/17/24 23:42 Ur Random Sodium 22 mmol/L 09/17/24 23:42 Ur Random Potassium 52 mmol/L 09/17/24 23:42 Ur Random Chloride 23 mmol/L 09/17/24 23:42 Urine Creatinine 124 mg/dL (28-217) 09/17/24 23:42 Nasal MRSA (PCR) Not detected (Not Detecte) 09/13/24 07:55 SISSY-1 Antibody <1.0 neg AI (<1.0 NEG) 09/13/24 13:15 SS-A/Ro IgG Antibody <1.0 neg AI (<1.0 NEG) 09/13/24 13:15 SS-B/La IgG Antibody <1.0 neg AI (<1.0 NEG) 09/13/24 13:15 Anti-nRNP/Sm IgG Ab <1.0 neg 09/13/24 13:15 Scl-70 Scleroderma Ab <1.0 neg AI (<1.0 NEG) 09/13/24 13:15 Anti-ds DNA IgG Ab <1 IU/mL 09/13/24 13:15 Heparin-induced Ab Negative (NEGATIVE) 09/16/24 12:30 UF Heparin Low Dose 1 0 % release 09/16/24 12:30 UF Heparin Low Dose 2 1 % release 09/16/24 12:30 UF Heparin High Dose 0 % release 09/16/24 12:30 KATHY Unfract Heparin Negative (NEGATIVE) 09/16/24 12:30 Hepatitis A IgM Ab Non-reactive (Nonreactive) 09/13/24 13:15 Hep Bs Antigen Non-reactive (Nonreactive) 09/13/24 13:15 Hep Bs Antibody < 3.5 (11.5-1000) L 09/13/24 13:15 Hep B Core Total Ab Non-reactive (Nonreactive) 09/13/24 13:15 Hepatitis C Antibody Non-reactive (Nonreactive) 09/13/24 13:15 Herpes Simplex Source Groin rash 09/16/24 12:05 HSV I DNA PCR Not detected 09/16/24 12:05 HSV II DNA PCR Not detected 09/16/24 12:05 HIV 1&2 Ab & HIV 1 Ag Non-reactive (Non-Reactiv) 09/13/24 13:15 HIV 1&2 Antibody Non-reactive (Non-Reactiv) 09/13/24 13:15 HSV 1 DNA Not detected (Not Detected) 09/16/24 12:05 HSV 2 DNA Detected (Not Detected) A 09/16/24 12:05 Vitals Last Vital Signs Temp 97.7 F 09/27/24 07:50 Pulse 78 09/27/24 08:28 Resp 17 09/27/24 08:20 BP 177/69 09/27/24 07:50 Pulse Ox 92 09/27/24 08:20 O2 Del Method Room Air 09/27/24 08:20 O2 Flow Rate 2 09/17/24 02:25 Discharge Plan Discharge Patient Disposition: Home Health Service Condition: Stable Prescriptions: New nystatin 100,000 unit/mL Suspension 400,000 unit PO QID 7 Days Qty: 112 0RF valacyclovir 1 gram Tablet 500 mg PO BID 10 Days Qty: 10 0RF carvedilol 6.25 mg Tablet 6.25 mg PO BID Qty: 60 0RF hydralazine 25 mg Tablet 25 mg PO TID 30 Days Qty: 90 0RF Sore Throat (phenol) 1.4 % Aerosol,[place] 3 spray mucous membrane Q2H PRN (Reason: Sore Throat) Qty: 177 0RF sucralfate 100 mg/mL Suspension 1 g PO AC&BEDTIME 30 Days Qty: 200 0RF prednisone 10 mg tablet 10 mg PO TID Qty: 30 0RF (DME) lancets Misc See Rx Instructions .ROUTE .MEDSUPPLY Qty: 100 0RF Rx Instructions: As directed (DME) blood-glucose meter [Blood Glucose Monitoring] Kit See Rx Instructions .ROUTE .MEDSUPPLY Qty: 1 0RF Rx Instructions: As directed (DME) pen needle, diabetic [BD Ultra-Fine Micro Pen Needle] 32 gauge x 1/4 needle See Rx Instructions .ROUTE .MEDSUPPLY Qty: 50 0RF Rx Instructions: As directed insulin lispro [Humalog KwikPen Insulin] 100 unit/mL insulin pen 5 unit SUBCUT TID Qty: 15 0RF insulin glargine [Basaglar KwikPen U-100 Insulin] 100 unit/mL (3 mL) insulin pen 7 unit SUBCUT BID Qty: 15 0RF Continued albuterol sulfate [Ventolin HFA] 90 mcg/actuation HFA aerosol inhaler 2 puff INHALATION Q6H PRN (Reason: Shortness Of Breath Or Wheezing) omeprazole 40 mg capsule,delayed release(DR/EC) 40 mg PO BID Breztri Aerosphere 160-9-4.8 mcg/actuation HFA aerosol inhaler 2 inh inhalation BID lorazepam 1 mg tablet 0.5 mg PO BID PRN (Reason: anxiety) Qty: 14 0RF amlodipine 10 mg tablet 10 mg PO DAILY folic acid 1 mg tablet 1 mg PO DAILY nystatin [Nystop] 100,000 unit/gram powder 1 applic TOPICAL BID SilvaSorb Gel,Extended Release 1 applic TOPICAL Q12H PRN (Reason: wound dressing) nystatin 100,000 unit/gram powder 1 applic topical BID Qty: 60 0RF ipratropium-albuterol 0.5 mg-3 mg(2.5 mg base)/3 mL solution for nebulization 3 ml INHALATION QID ondansetron HCl 8 mg tablet 8 mg PO TID PRN (Reason: Nausea And Vomiting) clopidogrel 75 mg tablet 75 mg PO DAILY oxycodone 5 mg capsule 5 mg PO Q8H PRN (Reason: Pain) ferrous gluconate 324 mg (38 mg iron) tablet 324 mg PO Q48H roflumilast 500 mcg tablet 500 mcg PO DAILY Changed quetiapine 50 mg tablet 50 mg PO BEDTIME Qty: 10 0RF Discontinued irbesartan 300 mg tablet 300 mg PO DAILY rosuvastatin 40 mg tablet 40 mg PO QPM potassium chloride 20 mEq tablet extended release 20 meq PO BID Qty: 20 0RF metoprolol succinate 50 mg tablet extended release 24 hr 50 mg PO DAILY methotrexate sodium 2.5 mg tablet 2.5 mg PO Q7D hydrochlorothiazide 25 mg tablet 25 mg PO DAILY prednisone 10 mg tablet See Taper PO BID Taper: predniSONE 60-10 60 mg Daily for 4 Days and 0 Hour 50 mg Daily for 4 Days and 0 Hour 40 mg Daily for 4 Days and 0 Hour 30 mg Daily for 4 Days and 0 Hour 20 mg Daily for 4 Days and 0 Hour 10 mg Daily for 4 Days and 0 Hour fluconazole 150 mg tablet 150 mg PO Q3D Qty: 2 0RF metformin 1,000 mg tablet 1,000 mg PO DAILY Qty: 10 0RF Discharge Orders: Discharge Order (Routine); Ordered 09/27/24 Ordered By: Anand Kat Referrals: [facility] [Outside] Yoko Kaminski DO [Physician] - 10/03/24 3:30 pm Edvin Casiano MD [Primary Care Provider] - 10/05/24 11:15 am () Discharge Diet: Cardiac, Diabetic and Soft Mechanical Discharge Activity: Resume usual activity and Increase activity as tolerated Patient Instructions: Prednisone (By mouth) (Prednisone Intensol, Prednicot, Deltasone, [place]), Insulin Glargine (By injection) (Lantus, Lantus SoloStar, Toujeo, Semglee), Insulin Lispro (By injection) (Humalog, Humalog Pen, Lispro- PFC,..., How to Give an Insulin Injection (DC), Oral Herpes Infection (ED), Toxic Epidermal Necrolysis (DC), Skin Yeast Infection (ED), How to Check your Blood Sugar (DC), Opioid Safety Activity Restrictions/Additional Instructions: Your goal blood pressure is less than 140/90 mmHg. Please check your blood pressure daily at home maintain a blood pressure diary. Follow-up with a primary care provider within next 1 week for adjustment of antihypertensive. 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 For now please avoid hydrochlorothiazide, fluconazole and methotrexate. Check your blood sugars daily at home and maintain a blood sugar diary 3 times before meals. Follow-up with a primary care provider on set appointment with a blood sugar and a blood pressure diary for further adjustment of medications as needed. Discharge Attestations 2 Time Spent in Discharge Care*: greater than 30 min Specific Discharge Activities: educating patient, discussing with pcp/other providers, discussing with caser in/social workers/dc planners, documenting/other paperwork and evaluating patient/reviewing data Status at Discharge: Cognitive status at discharge: cognitively intact , B ehavioral status at discharge: cooperative , Functional status at discharge: i ndependent ambulation , Overall status at discharge: patient is progressing back to baseline Quality Metrics Clinical Quality Measures [ No reported AMI, CVA or VTE this stay] Coding Level of Care Code 63091 Total time (in minutes) for Discharge: 70 Diagnoses Drug reaction with eosinophilia and systemic symptoms D72.10; T50.905A TEN (toxic epidermal necrolysis) L51.2 Acute on chronic renal insufficiency N28.9; N18.9 Transaminitis R74.01 Thrombocytopenia D69.6 Neutropenia D70.9 Candidiasis B37.9 Abdominal wall cellulitis L03.311 Chronic steroid use Hyperglycemia R73.9 Diabetes mellitus E11.9 Acute maculopapular rash R21 Chronic pain syndrome G89.4 Left subclavian artery occlusion I70.8 HSV (herpes simplex virus) dendritic keratitis B00.52
[2024-09-27 10:38] LABS: Glucose Point of Care 379 mg/dL (70-110)
[2024-09-27] MEDS: insulin lispro 100 unit/1 mL SUBCUT (12:18)
== END 2024-09-27 12:45 | disposition home health service (06) | DRG 603 ==
LOC: ER 05:22 → MEDSURG 05:46
PROVIDERS: Internal Medicine; Admitting Provider Student in an Organized Health Care Education/Training Program; Emergency Provider Emergency Medicine; PCP Family Medicine; Visit Provider Student in an Organized Health Care Education/Training Program
DX: L03.311 Cellulitis of abdominal wall (principal); L51.2 Toxic epidermal necrolysis [Lyell]; B37.0 Candidal stomatitis; B00.52 Herpesviral keratitis; N17.9 Acute kidney failure, unspecified; L97.129 Non-pressure chronic ulcer of left thigh with unspecified severity; L97.119 Non-pressure chronic ulcer of right thigh with unspecified severity; D61.818 Other pancytopenia; T38.0X5A Adverse effect of glucocorticoids and synthetic analogues, initial encounter; K12.32 Oral mucositis (ulcerative) due to other drugs; R74.01 Elevation of levels of liver transaminase levels; D69.6 Thrombocytopenia, unspecified; D70.9 Neutropenia, unspecified; B37.2 Candidiasis of skin and nail; E11.65 Type 2 diabetes mellitus with hyperglycemia; E11.649 Type 2 diabetes mellitus with hypoglycemia without coma; E11.51 Type 2 diabetes mellitus with diabetic peripheral angiopathy without gangrene; G89.4 Chronic pain syndrome; I70.8 Atherosclerosis of other arteries; I12.9 Hypertensive chronic kidney disease with stage 1 through stage 4 chronic kidney disease, or unspecified chronic kidney disease; E11.22 Type 2 diabetes mellitus with diabetic chronic kidney disease; N18.9 Chronic kidney disease, unspecified; J44.9 Chronic obstructive pulmonary disease, unspecified; L98.419 Non-pressure chronic ulcer of buttock with unspecified severity; L98.499 Non-pressure chronic ulcer of skin of other sites with unspecified severity; L30.4 Erythema intertrigo; T45.1X5A Adverse effect of antineoplastic and immunosuppressive drugs, initial encounter; Z79.84 Long term (current) use of oral hypoglycemic drugs; Z79.02 Long term (current) use of antithrombotics/antiplatelets; Z87.891 Personal history of nicotine dependence; Z86.73 Personal history of transient ischemic attack (TIA), and cerebral infarction without residual deficits
CPT/HCPCS: 36415; 36416; 71045; 71250; 74176; 76705; 80048; 80053; 80061; 80503; 81001; 82436; 82550; 82570; 82607; 82746; 82962; 83010; 83036; 83540; 83550; 83615; 83735; 84133; 84145; 84300; 84443; 85007; 85014; 85025; 85045; 85362; 85378; 85384; 85610; 85651; 85730; 85999; 86140; 86225; 86235; 86705; 86706; 86709; 86803; 87040; 87070; 87075; 87205; 87252; 87340; 87529; 87530; 87806; 88305; 92610; 94640; 96365; 96367; 96372; 96375; 97161; 97165; 99283; 99285; J0360; J0692; J1450; J1610; J1644; J1720; J1815; J2020; J2060; J2248; J2270; J2405; J2470; J3475; J3490; J7030; J7512; J7626; P9046

== ENCOUNTER 2024-09-28 11:33 | Emergency (ER) | payer MEDICARE, MEDICAID, SELFPAY ==
[2024-09-28 11:53] VITALS: BP 176/78; PULSE 75; RESP 15; O2SAT 92; BMI 28.3
--- NOTE | 2024-09-28 14:02 | CTR_ITS ---
PROCEDURE INFORMATION: Exam: CT Head Without Contrast Exam date and time: 09/28/2024 3:47 PM Age: 73 years old Clinical indication: Injury or trauma; Fall; Blunt trauma (contusions or hematomas); Without loss of consciousness TECHNIQUE: Imaging protocol: Computed tomography of the head without contrast. Radiation optimization: All CT scans at this facility use at least one of these dose optimization techniques: automated exposure control; mA and/or kV adjustment per patient size (includes targeted exams where dose is matched to clinical indication); or iterative reconstruction. COMPARISON: MR head wo/w con [id number] 07/22/2022 9:19 AM RADIATION DOSE METRICS: Total DLP (mGy-cm): 973.98 FINDINGS: Brain: Mild nonspecific white matter low attenuation which may be related to microvascular ischemic changes. No acute confluent lobar ischemic infarct. No acute intracranial hemorrhage. Cerebral ventricles: The ventricles and sulci are prominent in size compatible with mild atrophy. Paranasal sinuses: Mucous retention cysts versus polyps in the bilateral maxillary sinuses. Mastoid air cells: Visualized mastoid air cells are well aerated. Bones: No acute calvarial fracture. Soft tissues: Visualized soft tissues are unremarkable. CT/CT head wo con* [id number] IMPRESSION: No acute intracranial abnormality. If symptoms persist, consider further evaluation with MRI, if MRI is clinically safe to obtain.
--- NOTE | 2024-09-28 14:06 | ED_ITS ---
HPI - Fall 2 General: Chief Complaint: Fall Stated Complaint: pt fell, high BP and high glucose Time Seen by Provider: 09/28/24 14:01 History of Present Illness: 73-year-old female presents to the emerg ency room after a fall at home. She was discharged from the hospital yesterday. She had a 1 week stay in the hospital with severe candidal infection and Durham-Kareem syndrome. Evidently they had mentioned to her about going to the penitentiary however she opted to go home last night she fell because of weakness. She is unsure she may have hit her head she states she has a new bruise on her lower abdomen has some abdominal pain she also has right hip pain. Associated symptoms-after fall: Denies abdominal pain, chest pain or neck pain Related Data Home Medications Medication Instructions Recorded Confirmed omeprazole 40 mg capsule,delayed 40 mg PO BID 11/07/19 09/28/24 release clopidogrel 75 mg tablet 75 mg PO DAILY 08/16/24 09/28/24 ipratropium 0.5 mg-albuterol 3 mg 3 ml inhalation QID 08/16/24 09/28/24 (2.5 mg base)/3 mL nebulization soln oxycodone 5 mg capsule 5 mg PO Q8H PRN Pain 08/16/24 09/28/24 roflumilast 500 mcg tablet 500 mcg PO DAILY 08/16/24 09/28/24 amlodipine 10 mg tablet 10 mg PO DAILY 09/11/24 09/28/24 insulin glargine 100 unit/mL (3 8 unit SUBCUT DAILY 09/28/24 09/28/24 mL) subcutaneous pen (Lantus Solostar U-100 Insulin) Previous Rx's Medication Instructions Recorded nystatin 100,000 unit/gram topical 1 applic topical BID #60 grams 09/11/24 powder blood-glucose meter (Blood Glucose #1 ea 09/26/24 Monitoring kit) carvedilol 6.25 mg tablet 6.25 mg PO BID #60 tabs 09/26/24 hydralazine 25 mg tablet 25 mg PO TID 30 days #90 tabs 09/26/24 lancets #100 ea 09/26/24 pen needle, diabetic 32 gauge x #50 ea 09/26/24/ (BD Ultra-Fine Micro Pen Needle) prednisone 10 mg tablet 10 mg PO TID #30 tabs 09/26/24 quetiapine 50 mg tablet 50 mg PO BEDTIME #10 tabs 09/26/24 sucralfate 100 mg/mL oral 1 g (10 mL) PO AC&BEDTIME 30 days 09/26/24 suspension #200 mL insulin lispro 100 unit/mL 5 unit (0.05 mL) SUBCUT TID #15 mL 09/27/24 subcutaneous pen (Humalog KwikPen (U-100) Insulin) Allergies Allergy/AdvReac Type Severity Reaction Status Date / Time codeine Allergy itching Verified 09/29/24 00:20 lamotrigine [From Lamictal] Allergy itching Verified 09/29/24 00:20 NSAIDS (Non-Steroidal Allergy ADR-Gastrointestinal Verified 09/29/24 00:20 Anti-Inflamma Upset Review of Systems 2 Const: Denies: fever(s) or chills Card: Denies: chest pain Resp: Denies: dyspnea GI: Denies: abdominal pain : Denies: dysuria, urinary frequency or urinary urgency Musc: Denies: neck pain or back pain Skin/Breast: Denies: rash PFSH ED 2 PFSH: Medical History Left subclavian artery occlusion Positive occult stool blood test Resolved. CKD (chronic kidney disease) Acute kidney injury superimposed on CKD Hypertension COPD (chronic obstructive pulmonary disease) Carotid stenosis, bilateral Carpal tunnel syndrome left carpal tunnel release DOS: 09/19/[address] Fernando Type 2 diabetes mellitus Cubital tunnel syndrome cubital tunnel release DOS: 09/19/20 Surgical History History of cholecystectomy H/O cataract removal with insertion of prosthetic lens H/O left wrist surgery Family History Sister Cancer Brother Cancer Hypertension Father Hypertension Denies family history of Diabetes CAD (coronary artery disease) Stroke Social History Smoking and tobacco/nicotine status: former use of tobacco/nicotine Quit status (tobacco/nicotine): has quit using Year quit tobacco: 3 weeks ago Former quit date comment: smoked 1 pack per day x 50 years Alcohol intake: former Year of sobriety/quit date alcohol: 2000 Substance/Drug Use: never Lives independently: Yes Household members: none Housing: House Marital status: Number of children: 3 Pets and animals: Yes Pets & animals: dog(s) Physical Exam 2 Const: GENERAL APPEARANCE: cooperative ORIENTATION/CONSCIOUSNESS: Yes awake, Yes oriented to person, Yes oriented to place and Yes oriented to time HENMT: COMMON NORMALS: normocephalic, atraumatic and hearing grossly normal bilaterally HEAD & SCALP: normocephalic and atraumatic Resp: COMMON NORMALS: normal respiratory effort, No retractions, No use of accessory muscles and clear to auscultation bilaterally AUSCULTATION: clear to auscultation bilaterally Cardio: COMMON NORMALS: regular rate, regular rhythm and No murmurs present (Cardio) RATE: regular rate RHYTHM: regular rhythm GI: COMMON NORMALS: Soft to palpation and No hepatosplenomegaly present A USCULTATION: Yes normoactive bowel sounds PALPATION: Yes Soft to palpation, No Tenderness to palpation present (GI), No Guarding due to palpation present (GI) and Yes No hepatosplenomegaly present OTHER: Isolated bruise approximately 4-1/2 inches x 2 inches in the right mid abdomen abdominal exam otherwise benign Extremity: COMMON NORMALS: normal to inspection, capillary refill normal, no clubbing, cyanosis or edema, no calf tenderness and no pedal edema Neuro: SENSORIUM/ORIENTATION: Yes oriented to person, Yes oriented to place and Yes oriented to time Skin: COMMON NORMALS: no rashes or lesions noted GENERAL SKIN EXAM: no rashes or lesions noted Course 2 Vital Signs: Vital signs: Vital Signs Pulse Rate 82 09/28/24 16:30 Respiratory Rate 15 09/28/24 11:53 Blood Pressure 160/109 09/28/24 16:30 Pulse Oximetry 96 09/28/24 16:30 Oxygen Delivery Me thod Room Air 09/28/24 16:30 MDM - Fall Medical Decision Making Labs and imaging reviewed. No acute injuries noted will discharge patient home. We looked at going to penitentiary thought to have case management helped him were unable to arrange it at this time. Medical Records I reviewed the patient's medical records. Lab Data I reviewed the patient's lab results. 09/28/24 14:13 09/28/24 14:[address] 09/28/24 14:02 IMPRESSION: No acute intracranial abnormality. If symptoms persist, consider further evaluation with MRI, if MRI is clinically safe to obtain. Cervical Spine CT 09/28/24 14:31 IMPRESSION: Degenerative changes of the cervical spine. No acute bony abnormality. If symptoms persist, consider further evaluation with MRI, if MRI is clinically safe to obtain. Hip/Pelvis X-Ray 09/28/24 14:31 IMPRESSION: 1. No fracture. Moderate DJD. Abdomen/Pelvis CT 09/28/24 14:32 IMPRESSION: 1. No acute findings. 2. Chronic hiatal hernia. Chronic renal cysts. Colonic diverticulosis without diverticulitis and moderate stool volume. 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 Laboratory Results WBC 19.56 10^3/uL (3.29-11.43) H 09/28/24 14:13 RBC 3.41 10^6/uL (3.85-5.65) L 09/28/24 14:13 Hgb 9.90 g/dL (11.27-16.99) L 09/28/24 14:13 Hct 30.5 % (36-47) L 09/28/24 14:13 MCV 89.4 fl (85-98) 09/28/24 14:13 MCH 29.0 pg (27-33) 09/28/24 14:13 MCHC 32.5 g/dL (30-55) 09/28/24 14:13 RDW 15.3 % (12.1-15.1) H 09/28/24 14:13 Plt Count 864 10^3/cmm (157-399) H 09/28/24 14:13 MPV 9.1 fL (7.4-10.4) 09/28/24 14:13 Neut % (Auto) 49.4 % 09/28/24 14:13 Lymph % (Auto) 7.9 % 09/28/24 14:13 [place] % (Auto) 11.0 % 09/28/24 14:13 Eos % (Auto) 0.1 % 09/28/24 14:13 Baso % (Auto) 0.1 % 09/28/24 14:13 Neut # (Auto) 9.65 10^3/uL (1.8-7.7) H 09/28/24 14:13 Lymph # (Auto) 1.6 10^3/uL (0.8-4.8) 09/28/24 14:13 [place] # (Auto) 2.2 10^3/uL (0.2-0.9) H 09/28/24 14:13 Eos # (Auto) 0.0 10^3/uL (0.0-0.8) 09/28/24 14:13 Baso # (Auto) 0.0 10^3/uL (0.0-0.1) 09/28/24 14:13 Nucleated RBC % (auto) 0.3 % 09/28/24 14:13 Nucleated RBCs # 0.1 /100WBC 09/28/24 14:13 Sodium 139 mmol/L (136-145) 09/28/24 14:13 Potassium 3.1 mmol/L (3.5-5.1) L 09/28/24 14:13 Chloride 96 mmol/L (98-107) L 09/28/24 14:13 Carbon Dioxide 32 mmol/L (22-29) H 09/28/24 14:13 Anion Gap 14.1 (5-19) 09/28/24 14:13 BUN 34 mg/dL (8-23) H 09/28/24 14:13 Creatinine 1.1 mg/dL (0.5-0.9) H 09/28/24 14:13 GFR Calculation Not Reportable 09/28/24 14:13 Glucose 275 mg/dL (65-115) H 09/28/24 14:13 POC Glucose 333 mg/dL (70-110) H 09/28/24 14:10 Calculated Osmolality 305 mOsm/kg (285-295) H 09/28/24 14:13 Calcium 8.4 mg/dL (8.5-10.5) L 09/28/24 14:13 Total Bilirubin 0.3 mg/dL (0.15-1.2) 09/28/24 14:13 AST 22 U/L (0-32) 09/28/24 14:13 ALT 27 U/L (0-33) 09/28/24 14:13 Alkaline Phosphatase 153 U/L (35-105) H 09/28/24 14:13 Creatine Kinase 83 U/L (26-192) 09/28/24 14:13 Total Protein 6.3 g/dL (6.6-8.7) L 09/28/24 14:13 Albumin 3.7 g/dL (3.5-5.2) 09/28/24 14:13 Globulin 2.6 g/dL (1.3-4.6) 09/28/24 14:13 Urine Color Yellow (Yellow) 09/28/24 14:59 Urine Appearance Clear (CLEAR) 09/28/24 14:59 Urine pH 8.0 (5-7) A 09/28/24 14:59 Ur Specific [place] 1.017 (1.005-1.030) 09/28/24 14:59 Urine Protein 3+ (Negative) A 09/28/24 14:59 Urine Glucose (UA) 2+ (Normal) H 09/28/24 14:59 Urine Ketones Negative (Negative) 09/28/24 14:59 Urine Blood Negative (Negative) 09/28/24 14:59 Urine Nitrate Negative (Negative) 09/28/24 14:59 Urine Bilirubin Negative (Negative) 09/28/24 14:59 Urine Urobilinogen 0.2 mg/dL (Negative) 09/28/24 14:59 Ur Leukocyte Esterase Negative (Negative) 09/28/24 14:59 Urine RBC 0-2 /hpf (0-2) 09/28/24 14:59 Urine WBC 0-5 /hpf (0-5) 09/28/24 14:59 Ur Squamous Epith Cells 0-5 /hpf (0-5) 09/28/24 14:59 Amorphous Sediment Not Reportable 09/28/24 14:59 Urine Bacteria None seen /hpf (NONE) 09/28/24 14:59 Hyaline Casts 0.40 /lpf 09/28/24 14:59 Serum Ketones Negative (Negative) 09/28/24 14:13 All radiology interpretation(s) finalized by discharge Discharge Plan Discharge Patient Disposition: Home Clinical Impression: Fall Condition: Stable Prescriptions: No Action omeprazole 40 mg capsule,delayed release(DR/EC) 40 mg PO BID amlodipine 10 mg tablet 10 mg PO DAILY nystatin 100,000 unit/gram powder 1 applic topical BID Qty: 60 0RF insulin glargine [Lantus Solostar U-100 Insulin] 100 unit/mL (3 mL) insulin pen 8 unit SUBCUT DAILY ipratropium-albuterol 0.5 mg-3 mg(2.5 mg base)/3 mL solution for nebulization 3 ml INHALATION QID clopidogrel 75 mg tablet 75 mg PO DAILY oxycodone 5 mg capsule 5 mg PO Q8H PRN (Reason: Pain) roflumilast 500 mcg tablet 500 mcg PO DAILY carvedilol 6.25 mg Tablet 6.25 mg PO BID Qty: 60 0RF hydralazine 25 mg Tablet 25 mg PO TID 30 Days Qty: 90 0RF sucralfate 100 mg/mL Suspension 1 g PO AC&BEDTIME 30 Days Qty: 200 0RF prednisone 10 mg tablet 10 mg PO TID Qty: 30 0RF (DME) lancets Misc See Rx Instructions .ROUTE .MEDSUPPLY Qty: 100 0RF Rx Instructions: As directed (DME) blood-glucose meter [Blood Glucose Monitoring] Kit See Rx Instructions .ROUTE .MEDSUPPLY Qty: 1 0RF Rx Instructions: As directed (DME) pen needle, diabetic [BD Ultra-Fine Micro Pen Needle] 32 gauge x 1/4 needle See Rx Instructions .ROUTE .MEDSUPPLY Qty: 50 0RF Rx Instructions: As directed quetiapine 50 mg tablet 50 mg PO BEDTIME Qty: 10 0RF insulin lispro [Humalog KwikPen Insulin] 100 unit/mL insulin pen 5 unit SUBCUT TID Qty: 15 0RF Discharge Orders: Discharge ED (Routine); Ordered 09/28/24 Ordered By: Reagan Silva Referrals: Edvin Casiano MD [Primary Care Provider] - Discharge Diet: Usual diet Discharge Activity: Limit activity as instructed Patient Instructions: Opioid Safety, Pain Management Activity Restrictions/Additional Instructions: Thank you for choosing [facility] for your healthcare needs today. It is very important that you follow up as instructed or that you return to the Emergency Department should you have concerns or if your condition changes or worsens in any way. You were seen today after a fall plain x-rays and CTs did not show any acute fractures. You requested to go back to the [facility]iary case management has made arrangements but due to some logistical issues with your insurance he will not be able to go today. Will discharge you home within the next 1 to 2 days they should be able to get you admitted. Return to the ER if you have further problems. Continue to take your current medications as previously prescribed Coding Level of Care Code ED [employer] for Kalin Collado
[2024-09-28 14:14] LABS: Glucose Point of Care 333 mg/dL (70-110)
[2024-09-28 14:25] LABS: Basophils % 0.1 %; Eosinophils % 0.1 %; Hematocrit 30.5 % (36-47); Lymphocytes # 1.6 10^3/uL (0.8-4.8); Lymphocytes % 7.9 %; Mean Corpuscular HGB Conc 32.5 g/dL (30-55); Mean Corpuscular Volume 89.4 fl (85-98); Mean Platelet Volume 9.1 fL (7.4-10.4); Monocytes # 2.2 10^3/uL (0.2-0.9); Neutrophils # 9.65 10^3/uL (1.8-7.7); Neutrophils % 49.4 %; Nucleated Red Blood Cells # 0.1 /100WBC; Nucleated Red Blood Cells % 0.3 %; Platelet Count 864 10^3/cmm (157-399); Red Blood Count 3.41 10^6/uL (3.85-5.65); Red Cell Distribution Width 15.3 % (12.1-15.1); White Blood Count 19.56 10^3/uL (3.29-11.43)
--- NOTE | 2024-09-28 14:31 | CTR_ITS ---
PROCEDURE INFORMATION: Exam: CT Cervical Spine Without Contrast Exam date and time: 09/28/2024 3:47 PM Age: 73 years old Clinical indication: Injury or trauma; Fall; Blunt trauma TECHNIQUE: Imaging protocol: Computed tomography of the cervical spine without contrast. Radiation optimization: All CT scans at this facility use at least one of these dose optimization techniques: automated exposure control; mA and/or kV adjustment per patient size (includes targeted exams where dose is matched to clinical indication); or iterative reconstruction. COMPARISON: CR XR cervical spine 3V* [id number] 06/04/2022 11:58 PM RADIATION DOSE METRICS: Total DLP (mGy-cm): 194.6 FINDINGS: Bones/joints: The cervical vertebral body heights are maintained. Normal alignment. Moderate to severe multilevel disc space narrowing throughout the cervical spine. C2-C3: Broad-based disc osteophyte complex with mild central canal stenosis. Moderate right neuroforaminal narrowing secondary to uncovertebral and facet hypertrophy. C3-C4: Broad-based disc osteophyte complex with mild central canal stenosis. [id number] bilateral neuroforaminal narrowing secondary to uncovertebral and facet hypertrophy. C4-C5: Broad-based disc osteophyte complex with mild central canal stenosis. Mild right and moderate left neuroforaminal narrowing secondary to uncovertebral and facet hypertrophy. C5-C6: Broad-based disc osteophyte complex with [id number]-[id number] central canal stenosis. Mild right and moderate left neuroforaminal narrowing secondary to uncovertebral and facet hypertrophy. C6-C7: Broad-based disc osteophyte complex with mild central canal stenosis. Mild right and moderate left neuroforaminal narrowing secondary to uncovertebral and facet hypertrophy. C7-T1: No significant disc bulge or herniation. No severe spinal canal stenosis. No significant neuroforaminal narrowing. Lungs: Lung apices are normal. Soft tissues: Vascular stents are noted within the bilateral cervical internal carotid arteries. Prominent calcified plaque involving the bilateral carotid bulbs CT/CT cervical spin wo con* [id number] IMPRESSION: Degenerative changes of the cervical spine. No acute bony abnormality. If symptoms persist, consider further evaluation with MRI, if MRI is clinically safe to obtain.
--- NOTE | 2024-09-28 14:31 | XR_ITS ---
WS: [id number] Exam: XR hip RT 2-3V wo/w pel* [id number] Date/Time of Exam: 09/28/2024 2:38 PM Reason For Exam: trauma No acute fracture. Moderate DJD of the joint compartment. Normal soft tissues. XR/XR hip RT 2-3V wo/w pel* [id number] IMPRESSION: 1. No fracture. Moderate DJD.
[2024-09-28 14:32] LABS: Ketone (Acetest) Serum Negative (Negative)
--- NOTE | 2024-09-28 14:32 | CTR_ITS ---
PROCEDURE INFORMATION: Exam: CT Abdomen And Pelvis With Contrast Exam date and time: 09/28/2024 3:54 PM Age: 73 years old Clinical indication: Abdominal pain; Additional info: Abd pain TECHNIQUE: Imaging protocol: Computed tomography of the abdomen and pelvis with contrast. Radiation optimization: All CT scans at this facility use at least one of these dose optimization techniques: automated exposure control; mA and/or kV adjustment per patient size (includes targeted exams where dose is matched to clinical indication); or iterative reconstruction. Contrast material: OMNI 350; Contrast volume: 100 ml; Contrast route: INTRAVENOUS (IV); COMPARISON: [place] [id number] 09/16/2024 5:56 PM RADIATION DOSE METRICS: Total DLP (mGy-cm): 690.97 FINDINGS: Lungs: No infiltrate or effusion is seen within the visualized lung bases. Diaphragm: Partially visualized [id number]-[id number] hiatal hernia. This is chronic with prior exam. Liver: Normal. No mass. Gallbladder and biliary ducts: Gallbladder is not seen, likely previous cholecystectomy, as noted with prior exam. No significant biliary ductal dilatation. Pancreas: Normal. No ductal dilation. Spleen: Normal. No splenomegaly. Adrenal glands: Normal. No mass. Kidneys and ureters: Bilateral rounded hypodense renal cysts, [id number], appearing unchanged with prior exam. No hydronephrosis or obstruction. No abnormal perinephric stranding. Stomach and bowel: No bowel dilatation or obstruction. Colonic diverticulosis without evidence of diverticulitis. Moderate stool volume throughout the colon. Appendix: No evidence of appendicitis. Intraperitoneal space: No free fluid or ascites. No free air. Vasculature: Atherosclerotic vascular disease without aneurysmal dilatation of the abdominal aorta. Major vascular structures appear patent. Lymph nodes: Unremarkable. No enlarged lymph nodes. Urinary bladder: Unremarkable as visualized. Reproductive: Unremarkable as visualized. Bones/joints: Bone windows demonstrate spondylotic/degenerative change thoracolumbar spine with degenerative disc disease lower lumbar spine. Mild old compression deformity T12 unchanged with prior exam. Mild degenerative change about the pelvis and hips. No acute findings. Soft tissues: Unremarkable. CT/CT abdomen pelvis w con* [id number] IMPRESSION: 1. No acute findings. 2. Chronic hiatal hernia. Chronic renal cysts. Colonic diverticulosis without diverticulitis and moderate stool volume. 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
[2024-09-28 14:38] LABS: Alanine Aminotransferase 27 U/L (0-33); Albumin Level 3.7 g/dL (3.5-5.2); Alkaline Phosphatase 153 U/L (35-105); Anion Gap 14.1 (5-19); Aspartate Amino Transferase 22 U/L (0-32); Blood Urea Nitrogen 34 mg/dL (8-23); Calcium 8.4 mg/dL (8.5-10.5); Carbon Dioxide 32 mmol/L (22-29); Chloride 96 mmol/L (98-107); Globulin 2.6 g/dL (1.3-4.6); Glucose 275 mg/dL (65-115); Osmolality Calculated 305 mOsm/kg (285-295); Potassium 3.1 mmol/L (3.5-5.1); Sodium 139 mmol/L (136-145); Total Bilirubin 0.3 mg/dL (0.15-1.2); Total Protein 6.3 g/dL (6.6-8.7)
[2024-09-28 14:58] VITALS: BP 195/87; PULSE 84; O2SAT 97
[2024-09-28 15:03] LABS: Slide Review Slide Review Perform
[2024-09-28 15:07] LABS: Creatine Phosphokinase 83 U/L (26-192)
[2024-09-28 15:12] LABS: Bilirubin Urine Negative (Negative); Blood Urine Negative (Negative); Glucose Urine UA 2+ (Normal); Ketones Urine Negative (Negative); Leukocyte Esterase Urine Negative (Negative); Nitrate Urine Negative (Negative); Protein Urine 3+ (Negative); Specific Gravity, Urine 1.017 (1.005-1.030); Urine Appearance Clear (CLEAR); Urine Color Yellow (Yellow); Urobilinogen Urine 0.2 mg/dL (Negative)
[2024-09-28 15:14] LABS: Add Urine Microscopic? YES; Bacteria Urine None Seen /hpf; RBC Urine 0-2 /hpf (0-2); Squamous Epithelial Cell Urine 0-5 /hpf (0-5); WBC Urine 0-5 /hpf (0-5)
[2024-09-28] MEDS: iohexol 350 mg/mL 500 mL Btl (per mL) IV (15:55)
[2024-09-28 16:30] VITALS: BP 160/109; PULSE 82; O2SAT 96
== END 2024-09-28 17:30 | disposition home or self-care (01) ==
PROVIDERS: Emergency Provider Family Medicine; PCP Family Medicine
DX: Z03.89 Encounter for observation for other suspected diseases and conditions ruled out (principal); E11.22 Type 2 diabetes mellitus with diabetic chronic kidney disease; I12.9 Hypertensive chronic kidney disease with stage 1 through stage 4 chronic kidney disease, or unspecified chronic kidney disease; N18.9 Chronic kidney disease, unspecified; J44.9 Chronic obstructive pulmonary disease, unspecified; Z87.891 Personal history of nicotine dependence; W19.XXXA Unspecified fall, initial encounter; Z79.02 Long term (current) use of antithrombotics/antiplatelets; Z79.4 Long term (current) use of insulin
CPT/HCPCS: 36416; 70450; 72125; 73502; 74177; 80053; 81001; 82009; 82550; 82962; 85025; 99285

== ENCOUNTER 2024-09-29 00:13 | Emergency (ER) | payer MEDICARE, MEDICAID, SELFPAY ==
[2024-09-29] VITALS (9 sets, daily range): BP systolic 172–184; BP diastolic 65–91; PULSE 69–94; RESP 18; TEMP 36.6; O2SAT 95–97; BMI 25.5
[2024-09-29 00:24] LABS: Glucose Point of Care 411 mg/dL (70-110)
--- NOTE | 2024-09-29 00:31 | ED_ITS ---
HPI - General Adult 2 General: Chief complaint: General Medical Stated complaint: HIGH BLOOD SUGAR Time Seen by Provider: 09/29/24 00:20 History of Present Illness: Patient presents by EMS to the ER with complaints of high blood sugar. Patient is an insulin-dependent diabetic. Blood sugars in the 400s at home she took additional fast acting insulin at 10 PM. Did not come down. Patient's blood pressure is also elevated at 184/91 here in ER. Patient has no other complaints at this time. Related Data Home Medications Medication Instructions Recorded Confirmed omeprazole 40 mg capsule,delayed 40 mg PO BID 11/07/19 09/28/24 release clopidogrel 75 mg tablet 75 mg PO DAILY 08/16/24 09/28/24 ipratropium 0.5 mg-albuterol 3 mg 3 ml inhalation QID 08/16/24 09/28/24 (2.5 mg base)/3 mL nebulization soln oxycodone 5 mg capsule 5 mg PO Q8H PRN Pain 08/16/24 09/28/24 roflumilast 500 mcg tablet 500 mcg PO DAILY 08/16/24 09/28/24 amlodipine 10 mg tablet 10 mg PO DAILY 09/11/24 09/28/24 insulin glargine 100 unit/mL (3 8 unit SUBCUT DAILY 09/28/24 09/28/24 mL) subcutaneous pen (Lantus Solostar U-100 Insulin) Previous Rx's Medication Instructions Recorded nystatin 100,000 unit/gram topical 1 applic topical BID #60 grams 09/11/24 powder blood-glucose meter (Blood Glucose #1 ea 09/26/24 Monitoring kit) carvedilol 6.25 mg tablet 6.25 mg PO BID #60 tabs 09/26/24 hydralazine 25 mg tablet 25 mg PO TID 30 days #90 tabs 09/26/24 lancets #100 ea 09/26/24 nystatin 100,000 unit/mL oral 400,000 unit (4 mL) PO QID 7 days 09/26/24 suspension #112 mL pen needle, diabetic 32 gauge x #50 ea 09/26/2410/22 (BD Ultra-Fine Micro Pen Needle) prednisone 10 mg tablet 10 mg PO TID #30 tabs 09/26/24 quetiapine 50 mg tablet 50 mg PO BEDTIME #10 tabs 09/26/24 sucralfate 100 mg/mL oral 1 g (10 mL) PO AC&BEDTIME 30 days 09/26/24 suspension #200 mL valacyclovir 1 gram tablet 500 mg (1/2 x 1 gram) PO BID 10 09/26/24 days #10 tabs insulin lispro 100 unit/mL 5 unit (0.05 mL) SUBCUT TID #15 mL 09/27/24 subcutaneous pen (Humalog KwikPen (U-100) Insulin) Allergies Allergy/AdvReac Type Severity Reaction Status Date / Time codeine Allergy itching Verified 09/29/24 00:20 lamotrigine [From Lamictal] Allergy itching Verified 09/29/24 00:20 NSAIDS (Non-Steroidal Allergy ADR-Gastrointestinal Verified 09/29/24 00:20 Anti-Inflamma Upset Review of Systems 2 General: Reports: 10 or more systems reviewed and unremarkable except in HPI and below PFSH ED 2 PFSH: Medical History Left subclavian artery occlusion Positive occult stool blood test Resolved. CKD (chronic kidney disease) Acute kidney injury superimposed on CKD Hypertension COPD (chronic obstructive pulmonary disease) Carotid stenosis, bilateral Carpal tunnel syndrome left carpal tunnel release DOS: 09/19/[address] Fernando Type 2 diabetes mellitus Cubital tunnel syndrome cubital tunnel release DOS: 09/19/20 Surgical History History of cholecystectomy H/O cataract removal with insertion of prosthetic lens H/O left wrist surgery Family History Sister Cancer Brother Cancer Hypertension Father Hypertension Denies family history of Diabetes CAD (coronary artery disease) Stroke Social History Smoking and tobacco/nicotine status: former use of tobacco/nicotine Quit status (tobacco/nicotine): has quit using Year quit tobacco: 3 weeks ago Former quit date comment: smoked 1 pack per day x 50 years Alcohol intake: former Year of sobriety/quit date alcohol: 2000 Substance/Drug Use: never Lives independently: Yes Household members: none Housing: House Marital status: Number of children: 3 Pets and animals: Yes Pets & animals: dog(s) Physical Exam 2 Const: COMMON NORMALS: no acute distress, average body habitus, patient oriented x3, no limitations, healthy appearing, alert and well nourished HENMT: COMMON NORMALS: normocephalic, atraumatic, hearing grossly normal bilaterally, external ears normal, Normal external nose present and moist oral mucous membranes HEAD & SCALP: normocephalic and atraumatic NOSE: Normal external nose present EXTERNAL EAR: Yes external ears normal Neck/C-Spine: COMMON NORMALS: no JVD Chest: COMMONS NORMALS: normal inspection of the chest and normal palpation of entire chest wall Resp: COMMON NORMALS: normal respiratory effort, No retractions, No use of accessory muscles and clear to auscultation bilaterally AUSCULTATION: clear to auscultation bilaterally Cardio: COMMON NORMALS: no JVD, regular rate, regular rhythm, S1 normal heart sound present, S2 normal heart sound present, No gallops present (Cardio), No clicks present (Cardio), No murmurs present (Cardio) and No rub (Cardio) R ATE: regular rate RHYTHM: regular rhythm HEART SOUNDS: S1 normal heart sound present and S2 normal heart sound present GI: COMMON NORMALS: Normal to inspection, nondistended, normoactive bowel sounds present, Soft to palpation, non-tender, No hepatosplenomegaly present and no masses PALPATION: Yes Soft to palpation and Yes No hepatosplenomegaly present Neuro: COMMON NORMALS: patient oriented x3 SENSORIUM/ORIENTATION: Yes alert Course 2 Vital Signs: Vital signs: Vital Signs Temperature 97.8 F 09/29/24 00:14 Pulse Rate 94 09/29/24 03:20 Respiratory Rate 18 09/29/24 00:14 Blood Pressure 172/65 09/29/24 03:20 Pulse Oximetry 95 09/29/24 03:20 Oxygen Delivery Me thod Room Air 09/29/24 01:30 MDM - General Adult Medical Decision Making stable with white count 19, hemoglobin 9.1, platelets 765, metabolic panel showed blood sugar 374, patient was given 10 units of insulin. Upon recheck patient's blood sugar was approximately 120. Patient denies any other complaints. Patient be discharged home. Differential Diagnosis CBC was Medical Records I reviewed the patient's medical records. Lab Data I reviewed the patient's lab results. 09/29/24 00:58 09/29/24 00:58 Laboratory Results WBC 19.15 10^3/uL (3.29-11.43) H 09/29/24 00:58 RBC 3.21 10^6/uL (3.85-5.65) L 09/29/24 00:58 Hgb 9.10 g/dL (11.27-16.99) L 09/29/24 00:58 Hct 29.2 % (36-47) L 09/29/24 00:58 MCV 91.0 fl (85-98) 09/29/24 00:58 MCH 28.3 pg (27-33) 09/29/24 00:58 MCHC 31.2 g/dL (30-55) 09/29/24 00:58 RDW 15.3 % (12.1-15.1) H 09/29/24 00:58 Plt Count 765 10^3/cmm (157-399) H 09/29/24 00:58 MPV 9.2 fL (7.4-10.4) 09/29/24 00:58 Lymph % (Auto) Not Reportable 09/29/24 00:58 Cherry % (Auto) Not Reportable 09/29/24 00:58 Lymph # (Auto) Not Reportable 09/29/24 00:58 Cherry # (Auto) Not Reportable 09/29/24 00:58 Total Counted 100 (0-100) 09/29/24 00:58 Atypical Lymphs % Not Reportable 09/29/24 00:58 Absolute Neutrophils 10.1 10^3/cmm (1.4-6.5) H 09/29/24 00:58 Segmented Neutrophils 49 % 09/29/24 00:58 Band Neutrophils 4.0 % 09/29/24 00:58 Lymphocytes (Manual) 6 % 09/29/24 00:58 Monocytes (Manual) 11.0 % 09/29/24 00:58 Absolute Monocytes 2.1 10^3/cmm (0.1-0.6) H 09/29/24 00:58 Eosinophils (Manual) 2 % 09/29/24 00:58 Absolute Eosinophils 0.4 10^3/cmm (0.0-0.7) 09/29/24 00:58 Basophils (Manual) 0.0 % 09/29/24 00:58 Absolute Basophils 0.0 10^3/cmm (0.0-0.2) 09/29/24 00:58 Metamyelocytes 3.0 % 09/29/24 00:58 Myelocytes 20.0 % 09/29/24 00:58 Promyelocytes 5.0 % 09/29/24 00:58 Platelet Estimate Increased (Normal) H 09/29/24 00:58 Sodium 137 mmol/L (136-145) 09/29/24 00:58 Potassium 3.3 mmol/L (3.5-5.1) L 09/29/24 00:58 Chloride 95 mmol/L (98-107) L 09/29/24 00:58 Carbon Dioxide 30 mmol/L (22-29) H 09/29/24 00:58 Anion Gap 15.3 (5-19) 09/29/24 00:58 BUN 33 mg/dL (8-23) H 09/29/24 00:58 Creatinine 1.2 mg/dL (0.5-0.9) H 09/29/24 00:58 GFR Calculation Not Reportable 09/29/24 00:58 Glucose 374 mg/dL (65-115) H 09/29/24 00:58 POC Glucose 128 mg/dL (70-110) H 09/29/24 02:49 Calculated Osmolality 307 mOsm/kg (285-295) H 09/29/24 00:58 Calcium 8.0 mg/dL (8.5-10.5) L 09/29/24 00:58 Total Bilirubin 0.3 mg/dL (0.15-1.2) 09/29/24 00:58 AST 32 U/L (0-32) 09/29/24 00:58 ALT 31 U/L (0-33) 09/29/24 00:58 Alkaline Phosphatase 163 U/L (35-105) H 09/29/24 00:58 Total Protein 5.7 g/dL (6.6-8.7) L 09/29/24 00:58 Albumin 3.4 g/dL (3.5-5.2) L 09/29/24 00:58 Globulin 2.3 g/dL (1.3-4.6) 09/29/24 00:58 Urine Color Yellow (Yellow) 09/29/24 00:45 Urine Appearance Clear (CLEAR) 09/29/24 00:45 Urine pH 8.0 (5-7) A 09/29/24 00:45 Ur Specific [place] 1.026 (1.005-1.030) 09/29/24 00:45 Urine Protein 3+ (Negative) A 09/29/24 00:45 Urine Glucose (UA) 3+ (Normal) H 09/29/24 00:45 Urine Ketones Negative (Negative) 09/29/24 00:45 Urine Blood Trace (Negative) A 09/29/24 00:45 Urine Nitrate Negative (Negative) 09/29/24 00:45 Urine Bilirubin Negative (Negative) 09/29/24 00:45 Urine Urobilinogen 1.0 mg/dL (Negative) 09/29/24 00:45 Ur Leukocyte Esterase Negative (Negative) 09/29/24 00:45 Urine RBC 0-2 /hpf (0-2) 09/29/24 00:45 Urine WBC 0-5 /hpf (0-5) 09/29/24 00:45 Ur Squamous Epith Cells 0-5 /hpf (0-5) 09/29/24 00:45 Amorphous Sediment Not Reportable 09/29/24 00:45 Urine Bacteria None seen /hpf (NONE) 09/29/24 00:45 Hyaline Casts 0.81 /lpf 09/29/24 00:45 All radiology interpretation(s) finalized by discharge Discharge Plan Discharge Patient Disposition: Home Clinical Impression: Hyperglycemia due to diabetes mellitus Condition: Stable Prescriptions: No Action omeprazole 40 mg capsule,delayed release(DR/EC) 40 mg PO BID amlodipine 10 mg tablet 10 mg PO DAILY nystatin 100,000 unit/gram powder 1 applic topical BID Qty: 60 0RF insulin glargine [Lantus Solostar U-100 Insulin] 100 unit/mL (3 mL) insulin pen 8 unit SUBCUT DAILY ipratropium-albuterol 0.5 mg-3 mg(2.5 mg base)/3 mL solution for nebulization 3 ml INHALATION QID clopidogrel 75 mg tablet 75 mg PO DAILY oxycodone 5 mg capsule 5 mg PO Q8H PRN (Reason: Pain) roflumilast 500 mcg tablet 500 mcg PO DAILY nystatin 100,000 unit/mL Suspension 400,000 unit PO QID 7 Days Qty: 112 0RF valacyclovir 1 gram Tablet 500 mg PO BID 10 Days Qty: 10 0RF carvedilol 6.25 mg Tablet 6.25 mg PO BID Qty: 60 0RF hydralazine 25 mg Tablet 25 mg PO TID 30 Days Qty: 90 0RF sucralfate 100 mg/mL Suspension 1 g PO AC&BEDTIME 30 Days Qty: 200 0RF prednisone 10 mg tablet 10 mg PO TID Qty: 30 0RF (DME) lancets Misc See Rx Instructions .ROUTE .MEDSUPPLY Qty: 100 0RF Rx Instructions: As directed (DME) blood-glucose meter [Blood Glucose Monitoring] Kit See Rx Instructions .ROUTE .MEDSUPPLY Qty: 1 0RF Rx Instructions: As directed (DME) pen needle, diabetic [BD Ultra-Fine Micro Pen Needle] 32 gauge x 1/4 needle See Rx Instructions .ROUTE .MEDSUPPLY Qty: 50 0RF Rx Instructions: As directed quetiapine 50 mg tablet 50 mg PO BEDTIME Qty: 10 0RF insulin lispro [Humalog KwikPen Insulin] 100 unit/mL insulin pen 5 unit SUBCUT TID Qty: 15 0RF Discharge Orders: Discharge ED (Routine); Ordered 09/29/24 Ordered By: Cesar Bansal Referrals: Edvin Casiano MD [Primary Care Provider] - 1 week Patient Instructions: Hyperglycemia Activity Restrictions/Additional Instructions: Thank you for choosing [facility] for your healthcare needs today. Please realize that you were seen in the emergency department and that we are providing you with an emergency medical screening exam and this may not be a complete and all exclusive of all testing and/or medical workup we may need to determine your element or severity of your illness. It is very important that you follow-up as instructed with your primary care provider or specialist for the additional evaluation and to discuss your medical treatment plan. You may return to the emergency department should you have concerns or if your condition changes or worsens in any way. Coding Level of Care Code ED Lead Burner Apprentice for Kalin Collado
[2024-09-29] MEDS: insulin lispro 100 unit/1 mL 10 UNIT SUBCUT (00:36)
[2024-09-29 00:59] LABS: Bilirubin Urine Negative (Negative); Blood Urine Trace (Negative); Glucose Urine UA 3+ (Normal); Ketones Urine Negative (Negative); Leukocyte Esterase Urine Negative (Negative); Nitrate Urine Negative (Negative); Protein Urine 3+ (Negative); Specific Gravity, Urine 1.026 (1.005-1.030); Urine Appearance Clear (CLEAR); Urine Color Yellow (Yellow)
[2024-09-29 01:04] LABS: Add Urine Microscopic? YES; Bacteria Urine None Seen /hpf; Hyaline Casts Urine 0.81 /lpf; RBC Urine 0-2 /hpf (0-2); Squamous Epithelial Cell Urine 0-5 /hpf (0-5); WBC Urine 0-5 /hpf (0-5)
[2024-09-29 01:11] LABS: Hematocrit 29.2 % (36-47); Mean Corpuscular HGB Conc 31.2 g/dL (30-55); Mean Corpuscular Hemoglobin 28.3 pg (27-33); Mean Platelet Volume 9.2 fL (7.4-10.4); Platelet Count 765 10^3/cmm (157-399); Red Blood Count 3.21 10^6/uL (3.85-5.65); Red Cell Distribution Width 15.3 % (12.1-15.1); White Blood Count 19.15 10^3/uL (3.29-11.43)
[2024-09-29 01:27] LABS: Alanine Aminotransferase 31 U/L (0-33); Albumin Level 3.4 g/dL (3.5-5.2); Alkaline Phosphatase 163 U/L (35-105); Anion Gap 15.3 (5-19); Aspartate Amino Transferase 32 U/L (0-32); Blood Urea Nitrogen 33 mg/dL (8-23); Carbon Dioxide 30 mmol/L (22-29); Chloride 95 mmol/L (98-107); Creatinine Clr Calc Pharmacy 38.8635; Globulin 2.3 g/dL (1.3-4.6); Glucose 374 mg/dL (65-115); Osmolality Calculated 307 mOsm/kg (285-295); Potassium 3.3 mmol/L (3.5-5.1); Sodium 137 mmol/L (136-145); Total Bilirubin 0.3 mg/dL (0.15-1.2); Total Protein 5.7 g/dL (6.6-8.7)
[2024-09-29 01:50] LABS: Slide Review Slide Review Perform
[2024-09-29 01:51] LABS: Absolute Eosinophils 0.4 10^3/cmm (0.0-0.7); Absolute Neutrophil 10.1 10^3/cmm (1.4-6.5); Absolute Segmented Neutrophil 9.4 10/cmm (1.6-7.1); Band Neutrophils Absolute 0.8 10^3/cmm (0.0-1.2); Eosinophils 2 %; Lymphocytes 6 %; Monocytes Absolute 2.1 10^3/cmm (0.1-0.6); Platelet Estimate Increased (Normal); Segmented Neutrophils 49 %; Total Cells Counted 100 (0-100)
[2024-09-29 02:53] LABS: Glucose Point of Care 128 mg/dL (70-110)
== END 2024-09-29 03:22 | disposition home or self-care (01) ==
PROVIDERS: Emergency Provider Emergency Medicine; PCP Family Medicine
DX: E11.65 Type 2 diabetes mellitus with hyperglycemia (principal); E11.22 Type 2 diabetes mellitus with diabetic chronic kidney disease; I12.9 Hypertensive chronic kidney disease with stage 1 through stage 4 chronic kidney disease, or unspecified chronic kidney disease; N18.9 Chronic kidney disease, unspecified; J44.9 Chronic obstructive pulmonary disease, unspecified; Z87.891 Personal history of nicotine dependence; Z79.4 Long term (current) use of insulin; Z79.02 Long term (current) use of antithrombotics/antiplatelets
CPT/HCPCS: 36415; 36416; 80053; 81001; 82962; 85007; 85025; 96372; 99283; J1815

== ENCOUNTER → 2024-10-03 10:57 | Outpatient (BNVA) | payer MEDICARE, MEDICAID, SELFPAY | PROVIDERS: PCP Family Medicine; Visit Provider Dermatology | DX: L27.0 Generalized skin eruption due to drugs and medicaments taken internally (principal); B37.0 Candidal stomatitis; T14.8XXA Other injury of unspecified body region, initial encounter; X58.XXXA Exposure to other specified factors, initial encounter | CPT/HCPCS: 99204 ==

== ENCOUNTER → 2024-10-27 14:55 | Outpatient (BNVA) | payer MEDICARE, MEDICAID, SELFPAY | PROVIDERS: PCP Family Medicine; Visit Provider Dermatology | DX: L27.0 Generalized skin eruption due to drugs and medicaments taken internally (principal) | CPT/HCPCS: 99213 ==

== ENCOUNTER 2025-05-04 08:01 | Inpatient (IN) | payer MEDICARE, MEDICAID, SELFPAY ==
--- OUTSIDE RECORDS SUMMARY | 2025-01-26 04:00 | XMS_ITS ---
Author Organization [facility] Address [address] [place] [address] Care Team Providers Care Hydroelectric Plant Technician Name Role Phone Oh CORONA, Edvin Primary Care Provider Tremayne Fernandez [phone] REASON FOR VISIT 3 mos s/p Left carotid to subclavian bypass with carotid doppler Encounters Encounter Location Date Provider Diagnosis [facility] [address] [place] [address] 01/26/2025 Tremayne Acuña Plan Of Treatment Next Appt Details Provider Name:Tremayne acharya, 05/10/2025 09:00:00 AM, [address] [place] [address] [place], [place], [address], Provider Name:Gretchen baird, 05/10/2025 09:30:00 AM, [address] [place] [address] [place], [place], [address], Progress Notes * ERNESTO AlysiatyronDOB:1950 (74 yo F)Acc No.[id number]:01/26/2025 Patient: Katerina Amaya Provider: Kyara Acuña MD :1950 A ge:74 Y S ex:Female Date:01/26/2025 Address:[address] [place], [place] [id number] Pcp:Edvin Casiano MD Subjective: * Chief Complaints: * 3 mos s/p Left carotid to subclavian bypass with carotid doppler * Electronic signature of Tremayne Acuña MD on 05/04/2025 at 08:12 AM CDT Sign off status: Pending * Provider: Kyara Acuña MD Date: 0 01/26/2025 Generated for Hannah cummins/Michael/Hayde on: 0 05/04/2025 08:12 AM CDT
--- OUTSIDE RECORDS SUMMARY | 2025-01-26 04:30 | XMS_ITS ---
Author Organization [facility] Address [address] [place] [address] Care Team Providers Care Clamshell Operator Name Role Phone Oh CORONA, Edvin Primary Care Provider Tremayne Fernandez Unavailable [phone] Gretchen Edwards [phone] REASON FOR VISIT 3 mos s/p Left carotid to subclavian bypass with carotid doppler Encounters Encounter Location Date Provider Diagnosis [facility] [address] [place] [address] 01/26/2025 Gretchen Edwards Plan Of Treatment Next Appt Details Provider Name:Tremayne acharya, 05/10/2025 09:00:00 AM, [address] [place] [address] [place], [address], Provider Name:Gretchen baird, 05/10/2025 09:30:00 AM, [address] [place] [address] [place], [place], [address], Progress Notes * Katerina OROZCODOB:1950 (74 yo F)Acc No.[id number]:01/26/2025 Progress Notes Patient: Katerina Amaya Provider: Adam Edwards CNP :1950 A ge:74 Y S ex:Female Date:01/26/2025 Address:[address] [place], [place] [phone] Pcp:Edvin Csaiano MD Subjective: * Chief Complaints: * 3 mos s/p Left carotid to subclavian bypass with carotid doppler Care Plan Details* * Electronic signature of Braxton Edwards CNP on 05/04/2025 at 08:12 AM CDT Sign off status: Pending * Provider: Adam Edwards CNP Date: 0 01/26/2025 Generated for Hannah cummins/Michael/Greggitting on: 0 05/04/2025 08:12 AM CDT
--- OUTSIDE RECORDS SUMMARY | 2025-05-02 13:20 | XMS_ITS | Encounter Summary ---
Author Organization [facility] Address [address] [place] [address] Care Team Providers Care Produce Wrapper Name Role Phone Unavailable Primary Care Provider Unavailabl e Reason for Visit * Reason Comments Follow Up Encounter Details Date Type Department Care Team ([facility] Contact Info) Description 05/02/2025 1:20 PM CDT Office Visit [facility] Rheumatology- [facility] [address] [place] [address] Kaylin Jean Baptiste MD [address] [place] [address] PMR (polymyalgia rheumatica) (Primary Dx); Chronic obstructive pulmonary disease, unspecified COPD type (CMS/HCC); On prednisone therapy; Tobacco use Social History Tobacco Use Types Packs/Day Years Used Date Smoking Tobacco: Every Day Cigarettes Tobacco Cessation:Ready to Q uit: Not Asked; Counseling Given: Not Answered Comments Unknown Sex and Gender Information Value Date Recorded Sex Assigned at Not on file 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 Gender Identity Not on file Sexual Orientation Not on file documented as of this encounter Last Filed Vital Signs Vital Sign Reading Time Taken Comments Blood Pressure 130/86 05/02/2025 1:12 PM CDT Pulse 90 05/02/2025 1:12 PM CDT Temperature - - Respiratory Rate - - Oxygen Saturation 87% 05/02/2025 1:12 PM CDT Inhaled Oxygen Concentration - - Weight 69.4 kg (153 lb) 05/02/2025 1:12 PM CDT Height 162.6 cm (5' 4 ) 05/02/2025 1:12 PM CDT Body Mass Index 26.26 05/02/2025 1:12 PM CDT documented in this encounter Progress Notes * Kaylin Jean Baptiste MD - 05/02/2025 4:27 PM CDT HISTORY OF PRESENT ILLNESS Katerina Orozco, a 74 y.o. female presents with a Chief Complaint of Follow Up Subjective HPI Pt initially seen 03/2025 for joint pain. She reports developing B arm pain and weakness with numbness and tingling in 07/2025. She was placed on Celebrex but it was stopped because of blood in stools. Steroids also helped but when she was started on MTX, she was hospitalized with diffuse candidiasis. She is now on 20mg prednisone and feels okay but has new HTN and hyperglycemia as well as glaucoma. Since last visit, she has decreased to 15mg prednisone. Joint and muscle pain is well controlled. No fevers but in last few days, she is noting increased wheezing. Has been using her nebulizer Not onoxygen. REVIEW OF SYSTEMS Review of Systems Constitutional: Positive for fatigue. Negative for fever. Eyes: Positive for visual disturbance. Respiratory: Positive for cough, shortness of breath and wheezing. Cardiovascular: Positive for leg swelling. Negative for chest pain. Musculoskeletal: Positive for arthralgias and myalgias. Negative for joint swelling. Skin: Negative for rash. Neurological: Positive for weakness. Hematological: Negative for adenopathy. Bruises/bleeds easily. Psychiatric/Behavioral: Positive for dysphoric mood and sleep disturbance. Objective PHYSICAL EXAM BP 130/86 (BP Location: Right arm, Patient Position (BP): Sitting, BP Cuff Size: Adult) Pulse 90 Ht 5' 4 (1.626 m) Wt 69.4 kg (153 lb) SpO2 (!) 87% BMI 26.26 kg/m?? Physical Exam Vitals and nursing note reviewed. Constitutional: General: She is not in acute distress. Appearance: She is well-developed. HENT: Head: Normocephalic and atraumatic. Mouth/Throat: Mouth: Mucous membranes are moist. Pharynx: Oropharynx is clear. Eyes: Conjunctiva/sclera: Conjunctivae normal. Cardiovascular: Rate and Rhythm: Regular rhythm. Tachycardia present. Pulmonary: Effort: Pulmonary effort is normal. Comments: Diffuse wheezing Abdominal: General: Bowel sounds are normal. Musculoskeletal: General: No tenderness or deformity. Normal range of motion. Cervical back: Normal range of motion. Comments: No synovitis. Lymphadenopathy: Cervical: No cervical adenopathy. Skin: General: Skin is warm and dry. Findings: Bruising (arms) present. No rash. Neurological: General: No focal deficit present. Mental Status: She is alert. Motor: No weakness or abnormal muscle tone. Psychiatric: Behavior: Behavior normal. Comments: Flat affect Procedures Assessment ASSESSMENT and PLAN: ICD-10-CM ICD-9-CM 1. PMR (polymyalgia rheumatica) M35.3 725 2. Chronic obstructive pulmonary disease, unspecified COPD type (CMS/HCC) J44.9 496 XR CHEST PA ANDLATERAL 2 VW triamcinolone acetonide (KENALOG-40) injectable suspension 40 mg 3. On prednisone therapy Z79.52 V58.65 4. Tobacco use Z72.0 305.1 Well controled PMR, taper to 10mg prednisone and continue gabapentin. Also consider HCQ and NCV. Had sepsis on MTX. Also with apparent COPD exacerbation. Kenalog shot and CXR today. She will call herPCP today for further management. RTC 6 weeks, sooner if needed. * Moriah Duran - 05/02/2025 1:15 PM CDT Pt reports pain in both hands and wrist. Pt also reports pain in her left leg and foot. documented in this encounter Miscellaneous Notes * Patient Instructions - Kaylin Jean Baptiste MD - 05/02/2025 1:36 PM CDT Please call with any concerns Please talk to Dr. Casiano about your breathing, Please decrease prednisone to 10mg daily. documented in this encounter Plan of Treatment Upcoming Encounters Date Type Department Care Team (Late st Contact Info) Description 06/12/2025 1:40 PM CDT Video Visit [facility] Rheumatology- [facility] [address] [place] [address] Kaylin Jean Baptiste MD [address] [place] [address] documented as of this encounter Results * XR CHEST PA AND LATERAL 2 VW (05/02/2025 2:00 PM CDT) Anatomical Region Laterality Modality Chest Computed Radiogr aphy 05/02/2025 2:00 PM CDT Impressions 05/03/2025 8:49 PM CDT IMPRESSION: 1. No acute cardiopulmonary findings. 2. Probable moderate-sized hiatal hernia. Narrative 05/03/2025 8:49 PM CDT EXAM: XR CHEST PA AND LATERAL 2 VW DIAGNOSIS/REASON FOR EXAM: Chronic obstructive pulmonary disease, unspecified COPD type (CMS/HCC). DATE AND TIME: 05/02/2025, 2:00 PM. COMPARISON: None. TECHNIQUE: PA and lateral views of the chest. FINDINGS: No focal consolidation, pleural effusion, or pneumothorax is identified. The cardiac silhouette is at the upper limits of normal in size. A moderate-sized opacity is located posterior to the cardiac silhouette and superior to the gastroesophageal junction. The bones appear diffusely demineralized. Procedure Note Daniele Soriano MD - 05/03/2025 EXAM: XR CHEST PA AND LATERAL 2 VW DIAGNOSIS/REASON FOR EXAM: Chronic obstructive pulmonary disease, unspecified COPD type (CMS/HCC). DATE AND TIME: 05/02/2025, 2:00 PM. COMPARISON: None. TECHNIQUE: PA and lateral views of the chest. FINDINGS: No focal consolidation, pleural effusion, or pneumothorax is identified. The cardiac silhouette is at the upper limits of normal in size. A moderate-sized opacity is located posterior to the cardiac silhouette and superior to the gastroesophageal junction. The bones appear diffusely demineralized. IMPRESSION: 1. No acute cardiopulmonary findings. 2. Probable moderate-sized hiatal hernia. us Kaylin Jean Baptiste MD DIAGNOSTIC IMAGING ORDERABLE S Final Result documented in this encounter Visit Diagnoses Diagnosis PMR (polymyalgia rheumatica)- Primary Polymyalgia rheumatica Chronic obstructive pulmonary disease, unspecified COPD type (CMS/HCC) On prednisone therapy Tobacco use Tobacco use disorder Chronic obstructive pulmonary disease, unspecified COPD type (CMS/HCC) documented in this encounter Administered Medications Inactive Administered Medications - up to 3 most recent administrations Medication Order MAR Action Action Date Dose Rate Site triamcinolone acetonide (KENALOG-40) injectable suspension 40 mg 40 mg, IM, ONE TIME ONLY, 1 dose, On Thu05/02/25 at 1345, RoutineIndications:Chronic obstructive pulmonary disease, unspecified COPD type (CMS/HCC) Given 05/02/2025 1:43 PM CDT 40 mg Deltoid, Right documented in this encounter
--- OUTSIDE RECORDS SUMMARY | 2025-05-02 13:20 | XMS_ITS | Encounter Summary ---
Author Organization [facility] Address [address] [place] [address] Care Team Providers Care Sales Operations Assistant Name Role Phone Unavailable Primary Care Provider Unavailabl e Reason for Visit * Reason Comments Follow Up Encounter Details Date Type Department Care Team ([facility] Contact Info) Description 05/02/2025 1:20 PM CDT Office Visit [facility] Rheumatology- [facility] [place] [address] [place] [address] Kaylin Jean Baptiste MD [address] [place] [address] PMR (polymyalgia rheumatica) (Primary Dx); [...] on file 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
--- OUTSIDE RECORDS SUMMARY | 2025-05-02 14:00 | XMS_ITS | Encounter Summary ---
Author Organization [facility] Address [address] [place] [address] Care Team Providers Care Preparole Counseling Aide Name Role Phone Unavailable Primary Care Provider Unavailabl e Encounter Details Date Type Department Care Team (Latest Contact Info) Description 05/02/2025 2:00 PM CDT Ancillary Procedure [facility] Imaging Services-Arthur Santiago Rhodell [address] [place] [address] Kaylin Jean Baptiste MD [address] [place] [address] Chronic obstructive pulmonary disease, unspecified COPD type (CMS/HCC) Social History Tobacco Use Types Packs/Day Years Used Date Smoking Tobacco: Every Day Cigarettes Comments Unknown Sex and Gender Information Value Date Recorded Sex Assigned at Not on file Legal Sex 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 Gender Identity Not on file Sexual Orientation Not on file documented as of this encounter Plan of Treatment Upcoming Encounters Date Type Department Care Team (Late st Contact Info) Description 06/12/2025 1:40 PM CDT Video Visit [facility] Rheumatology- Arthur Santiago Rhodell [address] [place] [address] Kaylin Jean Baptiste MD [address] [place] [address] documented as of this encounter Procedures Procedure Name Priority Date/Time Associated Diagnosis Comments XR CHEST PA AND LATERAL 2 VW Routine 05/02/2025 2:00 PM CDT Chronic obstructive pulmonary disease, unspecified COPD type (CMS/HCC) documented in this encounter Results * XR CHEST PA [...] cardiopulmonary findings. 2. Probable moderate-sized hiatal hernia. Kaylin Jean Baptiste MD DIAGNOSTIC IMAGING ORDERABLE S Final Result documented in this encounter Visit Diagnoses Diagnosis Chronic obstructive pulmonary disease, unspecified COPD type (CMS/HCC) documented in this encounter
--- OUTSIDE RECORDS SUMMARY | 2025-05-02 14:00 | XMS_ITS | Encounter Summary ---
Author Organization [facility] Address [address] [place] [address] Care Team Providers Care Statistical Programmer Name Role Phone Unavailable Primary Care Provider Unavailabl e Encounter Details Date Type Department Care Team (Latest Contact Info) Description 05/02/2025 2:00 PM CDT Ancillary Procedure [facility] Imaging Services-Arthur Santiago [place] [address] [place] [address] Kaylin Jean Baptiste MD [address] [place] [address] Chronic obstructive pulmonary disease, unspecified COPD type (CMS/HCC) Social History Tobacco Use Types Packs/Day Years Used Date Smoking Tobacco: Every Day Cigarettes Comments Unknown Sex and Gender Information Value Date Recorded Sex Assigned at Not on file Legal 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
[2025-05-04] VITALS (21 sets, daily range): BP systolic 108–186; BP diastolic 53–89; PULSE 73–89; RESP 16–30; TEMP 36.6–37.1; O2SAT 85–97; BMI 28.3
--- NOTE | 2025-05-04 08:05 | ECG_ITS ---
[facility] Test Date: 2025-05-04 Pat Name: Katerina Orozco Department: Room: Gender: Female Production Support Specialist: : 1950 Requested By: Reagan Abdullahi Order Number: [id number] So MD: Nishant Godoy M.D. Measurements Intervals [place] Rate: 84 P: 65 ID: 147 QRS: 6 QRSD: 85 T: 27 QT: 363 QTc: 429 Interpretive Statements SINUS RHYTHM LOW QRS VOLTAGE IN PRECORDIAL LEADS [QRS DEFLECTION < 1.0 mV IN CHEST LEADS] Compared to ECG 08/31/2024 17:22:27 Low QRS voltage now present Electronically Signed On 05-06-2025 14:14:03 CDT by Nishant Godoy M.D. [id number]
--- NOTE | 2025-05-04 08:05 | XR_ITS ---
WS: [id number] XR chest 1V portable [id number] REASON FOR EXAM: dyspnea/cough FINDINGS: Chest is relatively unchanged compared to 08/22/2024. Calcified aortic arch with mild tortuosity of the thoracic aorta. Mediastinal density, presumed hiatal hernia. Borderline cardiomegaly. Calcified granulomatous disease in both hemithoraces. No acute pulmonary parenchymal or pleural abnormality. Moderate degenerative spondylosis in the thoracic spine. XR/XR chest 1V portable [id number] IMPRESSION: Stable chest without acute abnormality.
--- NOTE | 2025-05-04 08:06 | W.ED.SOB ---
HPI - SOB/Dyspnea General: Chief Complaint: Shortness of Breath/Dyspnea Stated Complaint: resp distress Time Seen by Provider: 05/04/25 08:05 History of Present Illness: HPI Narrative: 74-year-old female presents emergency room via EMS with complaints of shortness of breath. States symptoms began 3 to 4 days ago progressively worsening she was given steroids yesterday. She does not typically on oxygen. EMS reports that she was 80% on room air when they first arrived. She is given DuoNeb and Solu-Medrol en route on arrival here she is somewhat sedate but does open her eyes to verbal stimuli and answers questions appropriately. She gets conversationally dyspneic only able giving a few words at a time before needing to catch her breath. She denies any hemoptysis she has had a productive cough with some mild purulent sputum Associated symptoms: Deny abdominal pain, chest pain or fever(s) Related Data Home Medications ?Medication ?Instructions ?Recorded ?Confirmed omeprazole 40 mg capsule,delayed 40 mg PO BID 11/07/19 05/04/25 release clopidogrel 75 mg tablet 75 mg PO DAILY 08/16/24 05/04/25 ipratropium 0.5 mg-albuterol 3 mg 3 ml inhalation QID PRN copd 08/16/24 05/04/25 (2.5 mg base)/3 mL nebulization soln insulin glargine 100 unit/mL (3 See Rx Instructions .Route .COMPLEX 09/28/24 05/04/25 mL) subcutaneous pen (Lantus Solostar U-100 Insulin) albuterol sulfate 90 mcg/actuation 1 - 2 puff inhalation .Q4-6H PRN 05/04/25 05/04/25 aerosol inhaler Shortness Of Breath Or Wheezing amlodipine 5 mg tablet 5 mg PO DAILY 05/04/25 05/04/25 cholecalciferol (vitamin D3) 125 125 mcg PO DAILY 05/04/25 05/04/25 mcg (5,000 unit) tablet (Vitamin D3) ferrous gluconate 324 mg (38 mg 324 mg PO .QOD 05/04/25 05/04/25 iron) tablet gabapentin 100 mg capsule See Rx Instructions .Route .COMPLEX 05/04/25 05/04/25 hydralazine 25 mg tablet 25 mg PO TID 05/04/25 05/04/25 insulin lispro 100 unit/mL See Rx Instructions .Route .COMPLEX 05/04/25 05/04/25 subcutaneous pen (Humalog KwikPen (U-100) Insulin) irbesartan 300 mg tablet 300 mg PO DAILY 05/04/25 05/04/25 ketorolac 0.5 % eye drops 1 drp ophthalmic (eye) TID 05/04/25 05/04/25 magnesium oxide 400 mg PO DAILY 05/04/25 05/04/25 metformin 500 mg tablet,extended 500 mg PO BID 05/04/25 05/04/25 release 24 hr metoprolol succinate 50 mg 50 mg PO DAILY 05/04/25 05/04/25 tablet,extended release 24 hr rosuvastatin 40 mg tablet 40 mg PO BEDTIME 05/04/25 05/04/25 spironolactone 25 1 tab PO DAILY 05/04/25 05/04/25 mg-hydrochlorothiazide 25 mg tablet Previous Rx's ?Medication ?Instructions ?Recorded blood-glucose meter (Blood Glucose #1 ea 09/26/24 Monitoring kit) lancets #100 ea 09/26/24 pen needle, diabetic 32 gauge x #50 ea 09/26/2410/22 (BD Ultra-Fine Micro Pen Needle) prednisone 10 mg tablet 10 mg PO TID #30 tabs 09/26/24 quetiapine 50 mg tablet 50 mg PO BEDTIME #10 tabs 09/26/24 Allergies Allergy/AdvReac Type Severity Reaction Status Date / Time codeine Allergy itching Verified 11/13/24 16:43 lamotrigine (From Lamictal) Allergy itching Verified 11/13/24 16:43 methotrexate Allergy ALGY-Anaphy Verified 11/13/24 16:43 laxis NSAIDS (Non-Steroidal Allergy ADR-Gastrointestinal Verified 11/13/24 16:43 Anti-Inflamma Upset Review of Systems Const: Denies: fever(s) or chills Card: Denies: chest pain Resp: Reports: dyspnea and productive cough GI: Denies: abdominal pain : Denies: dysuria, urinary frequency or urinary urgency Musc: Denies: neck pain or back pain Skin/Breast: Denies: rash PFSH ED PFSH: Medical History Left subclavian artery occlusion Positive occult stool blood test Resolved. CKD (chronic kidney disease) Acute kidney injury superimposed on CKD Hypertension COPD (chronic obstructive pulmonary disease) Carotid stenosis, bilateral Carpal tunnel syndrome left carpal tunnel release DOS: 09/19/[address] Fernando Type 2 diabetes mellitus Cubital tunnel syndrome cubital tunnel release DOS: 09/19/20 Surgical History History of cholecystectomy H/O cataract removal with insertion of prosthetic lens H/O left wrist surgery Family History Sister Cancer Brother Cancer Hypertension Father Hypertension Denies family history of Diabetes CAD (coronary artery disease) Stroke Social History Smoking and tobacco/nicotine status: current every day tobacco/nicotine user Quit status (tobacco/nicotine): has quit using Year quit tobacco: 3 weeks ago Former quit date comment: smoked 1 pack per day x 50 years Alcohol intake: former Year of sobriety/quit date alcohol: 2000 Substance/Drug Use: never Lives independently: Yes Household members: none Housing: House Marital status: Number of children: 3 Pets and animals: Yes Pets & animals: dog(s) Physical Exam Const: GENERAL APPEARANCE: cooperative ORIENTATION/CONSCIOUSNESS: Yes awake, Yes oriented to person, Yes oriented to place and Yes oriented to time HENMT: COMMON NORMALS: normocephalic, atraumatic and hearing grossly normal bilaterally HEAD & SCALP: normocephalic and atraumatic Resp: COMMON NORMALS: normal respiratory effort, No retractions, No use of accessory muscles and clear to auscultation bilaterally AUSCULTATION: clear to auscultation bilaterally Cardio: COMMON NORMALS: regular rate, regular rhythm and No murmurs present (Cardio) RATE: regular rate RHYTHM: regular rhythm GI: COMMON NORMALS: Soft to palpation and No hepatosplenomegaly present AUSCULTATION: Yes normoactive bowel sounds PALPATION: Yes Soft to palpation, No Tenderness to palpation present (GI), No Guarding due to palpation present (GI) and Yes No hepatosplenomegaly present Extremity: COMMON NORMALS: normal to inspection, capillary refill normal, no clubbing, cyanosis or edema, no calf tenderness and no pedal edema Neuro: SENSORIUM/ORIENTATION: Yes oriented to person, Yes oriented to place and Yes oriented to time Skin: COMMON NORMALS: no rashes or lesions noted GENERAL SKIN EXAM: no rashes or lesions noted Course Vital Signs: Vital signs: Vital Signs Temperature 98.3 F 05/04/25 15:59 Pulse Rate 88 05/04/25 15:59 Respiratory Rate 22 H 05/04/25 15:59 Blood Pressure 119/65 05/04/25 15:59 Pulse Oximetry 91 05/04/25 15:59 Oxygen Delivery Me thod Nasal Cannula 05/04/25 15:59 Oxygen Flow Rate 3 05/04/25 13:13 Fraction of Inspir ed Oxygen 28 05/04/25 12:29 MDM - SOB/Dyspnea Medical Decision Making Acute hypercapnic respiratory failure with hypoxemia. Will admit aggressive steroids. Chest x-ray read as normal question of there is a pneumonia at the right lower base did not he change antibiotics but did discuss it with Dr. Selby he felt the same he will review and decide if he wishes to initiate antibiotics. Aggressive pulmonary toilet. BiPAP initiated in the ER changed to AVAPS after second blood gas which showed increasing hypercapnia Medical Records I reviewed the patient's medical records. Lab Data I reviewed the patient's lab results. 05/04/25 07:50 05/04/25 07:50 Labs/Radiology: Radiology Impressions Chest X-Ray 05/04/25 08:05 IMPRESSION: Stable chest without acute abnormality. Laboratory Results WBC 9.90 10^3/uL (3.29-11.43) 05/04/25 07:50 RBC 3.49 10^6/uL (3.85-5.65) L 05/04/25 07:50 Hgb 10.40 g/dL (11.27-16.99) L 05/04/25 07:50 Hct 34.5 % (36-47) L 05/04/25 07:50 MCV 98.9 fl (85-98) H 05/04/25 07:50 MCH 29.8 pg (27-33) 05/04/25 07:50 MCHC 30.1 g/dL (30-55) 05/04/25 07:50 RDW 14.6 % (12.1-15.1) 05/04/25 07:50 Plt Count 245 10^3/cmm (157-399) 05/04/25 07:50 MPV 9.9 fL (7.4-10.4) 05/04/25 07:50 Neut % (Auto) 75.3 % 05/04/25 07:50 Lymph % (Auto) 14.6 % 05/04/25 07:50 Childress % (Auto) 6.1 % 05/04/25 07:50 Eos % (Auto) 1.6 % 05/04/25 07:50 Baso % (Auto) 0.6 % 05/04/25 07:50 Neut # (Auto) 7.45 10^3/uL (1.8-7.7) 05/04/25 07:50 Lymph # (Auto) 1.5 10^3/uL (0.8-4.8) 05/04/25 07:50 Childress # (Auto) 0.6 10^3/uL (0.2-0.9) 05/04/25 07:50 Eos # (Auto) 0.2 10^3/uL (0.0-0.8) 05/04/25 07:50 Baso # (Auto) 0.1 10^3/uL (0.0-0.1) 05/04/25 07:50 Nucleated RBC % (auto) 0.3 % 05/04/25 07:50 Nucleated RBCs # 0.0 /100WBC 05/04/25 07:50 Specimen Type Arterial 05/04/25 09:15 Sample Site Radial, left 05/04/25 09:15 ABG pH 7.33 (7.35-7.45) L 05/04/25 09:15 ABG pCO2 54.4 mmHg (35-45) H 05/04/25 09:15 ABG pO2 77.5 mmHg (80.0-100.0) L 05/04/25 09:15 ABG PO2/FiO2 Ratio 258 05/04/25 09:15 ABG HCO3 28.9 mmol/L (22-26) H 05/04/25 09:15 ABG O2 Saturation 94.9 05/04/25 09:15 ABG Base Excess 2.2 mmol/L (-2.0-2.0) H 05/04/25 09:15 Nick Test Pos 05/04/25 09:15 A-a O2 Gradient 9.1 mmHg (5-10) 05/04/25 09:15 Hematocrit 32.7 % (37-47) L 05/04/25 09:15 Hgb O2 Saturation 91.5 % (95-100) L 05/04/25 09:15 Carboxyhemoglobin 2.1 %THgb (0.4-20.1) 05/04/25 09:15 Methemoglobin 1.4 % (0.4-1.5) 05/04/25 09:15 Total Hemoglobin 10.7 g/dL (12-16) L 05/04/25 09:15 Sodium 145.0 mmol/L (131-143) H 05/04/25 09:15 Potassium 4.2 mmol/L (3.5-5.0) 05/04/25 09:15 Glucose 129.0 mg/dL (70-115) H 05/04/25 09:15 Ionized Calcium 1.2 mmol/L (1.1-1.4) 05/04/25 09:15 O2 Delivery Device Bipap 05/04/25 09:15 O2 Liters/Min 3.0 % 05/04/25 08:07 FiO2 30.0 % 05/04/25 09:15 Public Employment Mediator ID [email or web address] 05/04/25 09:15 Sodium 144 mmol/L (136-145) 05/04/25 07:50 Potassium 4.6 mmol/L (3.5-5.1) 05/04/25 07:50 Chloride 106 mmol/L (98-107) 05/04/25 07:50 Carbon Dioxide 28 mmol/L (22-29) 05/04/25 07:50 Anion Gap 14.6 (5-19) 05/04/25 07:50 BUN 28 mg/dL (8-23) H 05/04/25 07:50 Creatinine 2.0 mg/dL (0.5-0.9) H 05/04/25 07:50 GFR Calculation Not Reportable 05/04/25 07:50 Glucose 108 mg/dL (65-115) 05/04/25 07:50 Calculated Osmolality 304 mOsm/kg (285-295) H 05/04/25 07:50 Calcium 8.7 mg/dL (8.5-10.5) 05/04/25 07:50 Total Bilirubin 0.3 mg/dL (0.15-1.2) 05/04/25 07:50 AST 18 U/L (0-32) 05/04/25 07:50 ALT 27 U/L (0-33) 05/04/25 07:50 Alkaline Phosphatase 95 U/L (35-105) 05/04/25 07:50 C-Reactive Protein 5.2 mg/L (0.0-4.9) H 05/04/25 07:50 NT-Pro-B Natriuret Pep 801 pg/mL (0-450) H 05/04/25 07:50 Total Protein 6.0 g/dL (6.6-8.7) L 05/04/25 07:50 Albumin 3.4 g/dL (3.5-5.2) L 05/04/25 07:50 Globulin 2.6 g/dL (1.3-4.6) 05/04/25 07:50 Influenza A (PCR) Negative (Negative) 05/04/25 08:13 Influenza Type B (PCR) Negative (Negative) 05/04/25 08:13 RSV (PCR) Negative (Negative) 05/04/25 08:13 SARS-CoV-2 (PCR) Negative (Negative) 05/04/25 08:13 All radiology interpretation(s) finalized by discharge Discharge Plan Discharge Patient Disposition: Admitted As Inpatient Admit Provider: Jreed Selby Clinical Impression: Acute kidney injury superimposed on CKD, Acute exacerbation of chronic obstructive airways disease Respiratory failure with hypoxia Qualifiers: Chronicity: acute Qualified Code(s): J96.01 - Acute respiratory failure with hypoxia Condition: Stable Coding Level of Care Code ED Principal Military Analyst for Kalin Collado
--- OUTSIDE RECORDS SUMMARY | 2025-05-04 08:10 | XMS_ITS | Encounter Summary ---
Author Organization [facility] Address [address] [place] [address] Care Team Providers Care Crew Chief Name Role Phone Unavailable Primary Care Provider Unavailabl e Encounter Details Date Type Department Care Team (Latest Contact Info) Description 01/10/2002 Outpatient Historical [facility] Rafael Jeong MD [address] [place] [address] LUMBAGO (Primary Dx); NEURALGIA/NEURITIS NOS Social History Tobacco Use Types Packs/Day Years Used Date Smoking Tobacco: Never Assessed Comments Unknown Sex and Gender Information Value Date Recorded Sex Assigned at Not on file 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
--- OUTSIDE RECORDS SUMMARY | 2025-05-04 08:10 | XMS_ITS | Encounter Summary ---
Author Organization [facility] Address [address] [place] [address] Care Team Providers Care Guest Service Agent Name Role Phone Unavailable Primary Care Provider Unavailabl e Encounter Details Date Type Department Care Team (Latest Contact Info) Description 11/15/2001 Outpatient Historical [facility]- [place] [address] [facility] [address] [place] [address] Ezekiel Mars, PhD NO ADDRESS ON FILE CHRONIC PERIODONTITIS (Primary Dx) Social History Tobacco Use Types Packs/Day Years Used Date Smoking Tobacco: Never Assessed Comments Unknown Sex and Gender Information Value Date Recorded Sex Assigned at Not on file 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
--- OUTSIDE RECORDS SUMMARY | 2025-05-04 08:10 | XMS_ITS | Encounter Summary ---
Author Organization [facility] Address [address] [place] [address] Care Team Providers Care Lens Matcher Name Role Phone Unavailable Primary Care Provider Unavailabl e Encounter Details Date Type Department Care Team (Latest Contact Info) Description 04/18/2002 Outpatient Historical [facility] Rafael Jeong MD [address] [place] [address] General symptoms NEC (Primary Dx); DENTAL DISORDER NOS; FRACTURE NOS-CLOSED Social History Tobacco Use Types Packs/Day Years Used Date Smoking Tobacco: Never Assessed Comments Unknown Sex and Gender Information Value Date Recorded Sex Assigned at Not on file 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
--- OUTSIDE RECORDS SUMMARY | 2025-05-04 08:10 | XMS_ITS | Encounter Summary ---
Author Organization [facility] Address [address] [place] [address] Care Team Providers Care Bacteriology Professor Name Role Phone Unavailable Primary Care Provider Unavailabl e Encounter Details Date Type Department Care Team (Latest Contact Info) Description 01/31/2002 Outpatient Historical [facility] Rafael Jeong MD [address] [place] [address] UNSPEC DENTAL CARIES (Primary Dx); CORONARY ATHEROSCLER UNSPEC VESSEL Social History Tobacco Use Types Packs/Day Years Used Date Smoking Tobacco: Never Assessed Comments Unknown Sex and Gender Information Value Date Recorded Sex Assigned at Not on file 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
--- OUTSIDE RECORDS SUMMARY | 2025-05-04 08:10 | XMS_ITS | Encounter Summary ---
Author Organization [facility] Address [address] 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
--- OUTSIDE RECORDS SUMMARY | 2025-05-04 08:10 | XMS_ITS | Encounter Summary ---
Author Organization [facility] Address [address] 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
--- OUTSIDE RECORDS SUMMARY | 2025-05-04 08:10 | XMS_ITS | Encounter Summary ---
Author Organization [facility] Address [address] [place] [address] Care Team Providers Care Distance Learning Program Coordinator Name Role Phone Unavailable Primary Care Provider Unavailabl e Encounter Details Date Type Department Care Team (Latest Contact Info) Description 02/10/2002 Outpatient Historical [facility] Rafael Jeong MD [address] [place] [address] LUMBAGO (Primary Dx); General symptoms NEC; FX DORSAL VERTEBRA-CLOSE (CMS/HCC) Social History Tobacco Use Types Packs/Day Years Used Date Smoking Tobacco: Never Assessed Comments Unknown Sex and Gender Information Value Date Recorded Sex Assigned at Not on file 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
--- OUTSIDE RECORDS SUMMARY | 2025-05-04 08:10 | XMS_ITS | Encounter Summary ---
Author Organization [employer] [facility] Address [address] [place] [address] Care Team Providers Care Survey Party Chief Name Role Phone Unavailable Primary Care Provider Unavailabl e Encounter Details Date Type Department Care Team (Latest Contact Info) Description 11/01/2001 Outpatient Historical [facility] Rafael Jeong MD [address] [place] [address] LUMBAGO (Primary Dx); NEURALGIA/NEURITIS NOS; General symptoms NEC; GENERALIZED ANXIETY DIS Social History Tobacco Use Types Packs/Day Years Used Date Smoking Tobacco: Never Assessed Comments Unknown Sex and Gender Information Value Date Recorded Sex Assigned at Not on file Legal Sex 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
--- OUTSIDE RECORDS SUMMARY | 2025-05-04 08:10 | XMS_ITS | Encounter Summary ---
Author Organization [employer] [facility] Address [address] [place] [address] Care Team Providers Care Metal Worker Name Role Phone Unavailable Primary Care Provider Unavailabl e Encounter Details Date Type Department Care Team (Latest Contact Info) Description 09/28/2001 Outpatient Historical HIS [facility] Rafael Jeong MD [address] [place] [address] LUMBOSACRAL NEURITIS NOS (Primary Dx); PATHOLOGIC FX VERTEBRAE; General symptoms NEC; HYPERTENSION NOS Social History Tobacco Use Types Packs/Day Years Used Date Smoking Tobacco: Never Assessed Comments Unknown Sex and Gender Information Value Date Recorded Sex Assigned at Not on file 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
--- OUTSIDE RECORDS SUMMARY | 2025-05-04 08:10 | XMS_ITS | Encounter Summary ---
Author Organization [employer] [facility] Address [address] [place] [address] Care Team Providers Care Shafting Cleaner Name Role Phone Unavailable Primary Care Provider Unavailabl e Encounter Details Date Type Department Care Team (Latest Contact Info) Description 12/02/2001 Outpatient Historical HIS [facility] Rafael Jeong MD [address] [place] [address] General symptoms NEC (Primary Dx); FX DORSAL VERTEBRA-CLOSE (CMS/HCC); PREOP EXAM OTHER UNSPECIFIED Social History Tobacco Use Types Packs/Day Years Used Date Smoking Tobacco: Never Assessed Comments Unknown Sex and Gender Information Value Date Recorded Sex Assigned at Not on file 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
--- OUTSIDE RECORDS SUMMARY | 2025-05-04 08:10 | XMS_ITS | Encounter Summary ---
Author Organization [employer] [facility] Address [address] [place] [address] Care Team Providers Care Electric Operator Name Role Phone Unavailable Primary Care Provider Unavailabl e Encounter Details Date Type Department Care Team (Latest Contact Info) Description 03/17/2002 Outpatient Historical HIS [facility] Rafael Jeong MD [address] [place] [address] General symptoms NEC (Primary Dx); NEURALGIA/NEURITIS NOS; LUMBAGO Social History Tobacco Use Types Packs/Day Years Used Date Smoking Tobacco: Never Assessed Comments Unknown Sex and Gender Information Value Date Recorded Sex Assigned at Not on file 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
--- OUTSIDE RECORDS SUMMARY | 2025-05-04 08:11 | XMS_ITS | Encounter Summary ---
Author Organization [employer] [facility] Address [address] [place] [address] Care Team Providers Care Blacking Wheel Tender Name Role Phone Unavailable Primary Care Provider Unavailabl e Encounter Details Date Type Department Care Team (Latest Contact Info) Description 07/26/2001 Outpatient Historical [facility] Sacha Hendrickson MD [address] [place], [place] [id number] General symptoms NEC (Primary Dx); Unspecified essential hypertension Social History Tobacco Use Types Packs/Day Years Used Date Smoking Tobacco: Never Assessed Comments Unknown Sex and Gender Information Value Date Recorded Sex Assigned at Not on file 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
--- OUTSIDE RECORDS SUMMARY | 2025-05-04 08:11 | XMS_ITS | Encounter Summary ---
Author Organization [employer] [facility] Address [address] [place] [address] Care Team Providers Care Director Of Recruitment And Admissions Name Role Phone Unavailable Primary Care Provider Unavailabl e Encounter Details Date Type Department Care Team (Latest Contact Info) Description 04/23/2001 Outpatient Historical HIS [facility] Rafael Jeong MD [address] [place] [address] Edema (Primary Dx); Sprain rotator cuff Social History Tobacco Use Types Packs/Day Years Used Date Smoking Tobacco: Never Assessed Comments Unknown Sex and Gender Information Value Date Recorded Sex Assigned at Not on file 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
--- OUTSIDE RECORDS SUMMARY | 2025-05-04 08:11 | XMS_ITS | Encounter Summary ---
Author Organization [employer] [facility] Address [address] [place] [address] Care Team Providers Care Clerk Funeral Detail Name Role Phone Unavailable Primary Care Provider Unavailabl e Encounter Details Date Type Department Care Team (Latest Contact Info) Description 03/01/2001 Outpatient Historical HIS [facility] Rafael Jeong MD [address] [place] [address] Lumbago (Primary Dx); Neuralgia, neuritis, and radiculitis, unspecified; General symptoms NEC Social History Tobacco Use Types Packs/Day Years Used Date Smoking Tobacco: Never Assessed Comments Unknown Sex and Gender Information Value Date Recorded Sex Assigned at Not on file 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
--- OUTSIDE RECORDS SUMMARY | 2025-05-04 08:11 | XMS_ITS | Continuity of Care Document ---
Author Organization [facility], [facility] ([facility]) Address [address] [place] [address] Care Team Providers Care Quality Compliance Consultant Name Role Phone SOPHIA CASIANO Primary Care Provider Unavailabl e Assessment No assessment recorded. Plan of Treatment Reminders Order Date Submit Date Provider Last Modified By Organization Details Last Modified Time Details Appointments OFFICE VISIT MIKE 2024 12:00P Juju Casiano MD Not available Not available Not available Lab microalbu min/creat inine, mass ratio, urine 2024 025 [employer] [facility], [address] [place] [address] 248, [facility] [address] [place], [address], 04/28/2025 10:26:34 Referral None recorded. Procedures None recorded. Surgeries None recorded. Imaging None recorded. Medication Orders prednison e 10 mg tablet 2024 025 [id number], [address], [place], [place], [id number], 04/27/2025 13:37:31 Patient TargetsNo targets recorded. Patient InstructionsNo instructions recorded. Reason for Referral None Reported. Problems Name Problem SNOMED Code Status Onset Date Resolution Date Notes Provider Name and Address Organization Details Recorded Time For resuscit ation [id number] Active 2020 FULL CODE STATUS; advanced directiv es: full code does not want life prolongi ng or heroic measures if no meaningf ul chance of recovery 1st POA is her son Kiko Byers on [phone] wishes him to be the primary decision maker unless unable 2ND poa her daughter Roxanna Koenig ; Date: 04/08/20; 12/23/19 8:36AM by Anabella Parker LPN, Office Visit; Promoted ; acuity set as *; Asha montgomery, [facility] 5 23:07:55 Chronic obstruct michael pulmonar y disease 66700083 Completed 202106/12/2022 Chronic Obstruct michael Lung Disease - Status is Inactive ; 06/12/20 10:24AM by Jennifer Casiano PA-C, Annotati on/Adden dum; Promoted ; acuity set as *; Not Available [facility] 3 03:13:13 Depressi ve disorder [id number] Completed 202106/12/2022 Depressi on - Status is Inactive ; 06/12/20 10:28AM by Jennifer Casiano PA-C, Annotati on/Adden dum; Promoted ; acuity set as *; Not Available [facility] 3 03:13:13 Bipolar disorder 94213970 Completed 202106/12/2022 Bipolar Disorder - Status is Inactive ; 06/12/20 10:27AM by Jennifer Casiano PA-C, Annotati on/Adden dum; Promoted ; acuity set as *; Asha montgomery, [facility] 5 23:07:54 Clinical finding Completed 202106/12/2022 obesity - Status is Inactive ; 06/12/20 10:28AM by Jennifer Casiano PA-C, Annotati on/Adden dum; Promoted ; acuity set as *; Not Available [facility] 3 03:13:15 Cerebral infarcti on 488787799 Active 2022 POSTERIO R CIRCULAT ION STROKE; Recorded 12/23/19 8:36AM by Anabella Parker LPN, Office Visit; Promoted ; acuity set as *; Asha montgomery, [facility] 5 23:07:55 Insomnia 467375324 Active 2022 INSOMNIA ; Recorded 12/23/19 8:36AM by Anabella Parker LPN, Office Visit; Promoted ; acuity set as *; Asha Hutchinsonoch valentina [facility] 5 23:07:55 Anxiety disorder 846901770 Active 2022 Anxiety Disorder ; 12/23/19 8:36AM by Anabella Parker LPN, Office Visit; Promoted ; acuity set as *; Asha Khannaobloch valentina [facility] 5 23:07:55 Chronic post-tra umatic stress disorder 627635792 Active 2022 PTSD; 12/23/19 8:36AM by Anabella Parker LPN, Office Visit; Promoted ; acuity set as *; Asha Joel valentina [facility] 5 23:07:55 Mixed bipolar affectiv e disorder 079350725 Active 2022 BIPOLAR DISORDER , MIXED; Recorded 12/23/19 8:36AM by Anabella Parker LPN, Office Visit; Promoted ; acuity set as *; Asha Khannaobloch valentina [facility] 5 23:07:55 Emphysem atous bleb of lung 28646820 Active 2022 COPD (CHRONIC OBSTRUCT MICHAEL PULMONAR Y DISEASE) WITH EMPHYSEM A; Recorded 12/23/19 8:36AM by Anabella Parker LPN, Office Visit; Promoted ; acuity set as *; Asharoshni KhannaJoel valentina [facility] 5 23:07:55 Myocardi al infarcti on 38551271 Active 2022 Myocardi al Infarcti on1994; 12/23/19 8:36AM by Anabella Parker LPN, Office Visit; Promoted ; acuity set as *; Asha Maldonado [facility] 5 23:07:55 Hyperten sive disorder 67651685 Active 2022 Hyperten jose armando - Status is Inactive ; 06/12/20 10:28AM by Jennifer Casiano PA-C, Annotati on/Adden dum; Promoted ; acuity set as *; ; Start Date : 06/12/20 HYPER TENSION; Recorded 12/23/19 8:36AM by Anabella Parker LPN, Office Visit; Promoted ; acuity set as *; BENIGN ESSENTIA L HTN; Recorded 06/12/20 10:27AM by Jennifer Casiano PA-C, Annotati on/Adden dum; Promoted ; acuity set as *; ; Start Date : 06/12/20 ESSEN TIAL HYPERTEN JOSE ARMANDO; Recorded 06/12/20 10:27AM by Jennifer Casiano PA-C, Annotati on/Adden dum; Promoted ; acuity set as *; ; Start Date : 06/12/20 Asha montgomery [facility] 5 23:07:55 Nicotine dependen ce 40185814 Active 2022 TOBACCO USE DISORDER ; Recorded 12/23/19 8:36AM by Anabella Parker LPN, Office Visit; Promoted ; acuity set as *; Asha montgomery [facility] 5 23:07:55 Obsessiv e compulsi ve personal ity disorder 0121943 Active 2022 Obsessiv e Compulsi ve Personal ity Disorder ; 12/23/19 8:36AM by Anabella Parker LPN, Office Visit; Promoted ; acuity set as *; Asha montgomery [facility] 5 23:07:55 Divertic ulosis NOS Active 2022 divertic ulosis; 12/23/19 8:36AM by Anabella Parker LPN, Office Visit; Promoted ; acuity set as *; Asha montgomery [facility] 5 23:07:55 Essentia l tremor 105225947 Active 2022 benign essentia l tremor; 12/23/19 8:36AM by Anabella Parker LPN, Office Visit; Promoted ; acuity set as *; Asha Maldonado null, [facility] 5 23:07:55 Type 2 diabetes mellitus 77917087 Active 2022 ANABELLA PARKER null, [facility] 3 14:35:25 Aneurysm of thoracic aorta 726554157 Active 2022 Asha Maldonado null, [facility] 5 23:07:55 Chronic obstruct michael pulmonar y disease 90116826 Active 2022 ANABELLA PARKER null, [facility] 3 14:35:46 Hyperlip idemia 03073921 Active 2022 ANABELLA PARKER null, [facility] 3 14:35:59 Esssacha l hyperten jose armando 89469522 Active 2022 ANABELLA PARKER null, [facility] 3 14:36:09 Bipolar disorder 48946589 Active 2022 Asha Maldonado null, [facility] 5 23:07:54 Chronic kidney disease stage 3B 912039250 Active 2023 Asha Maldonado null, [facility] 5 23:07:55 Frailty 037036939 Active 2023 Asha Maldonado null, [facility] 5 23:07:55 Fatigue 64795317 Active 2023 Asha Maldonado null, [facility] 5 23:07:55 Pulmonar y emphysem a 18396452 Active 2023 Asha Maldonado null, [facility] 5 23:07:55 Vertigo 456022274 Completed 202301/16/2025 Asha Maldonado [facility], [facility] 5 23:08:28 Occult blood detected in feces 11226904 Completed 202301/16/2025 Asha Hutchinsonoch [facility], [facility] 5 23:08:28 Dehydrat ion 88866189 Completed 202301/16/2025 Asha Maldonado [facility] 5 23:08:28 Hypokale aaliyah 27596839 Active 2023 Asha Hutchinsonoch [facility], [facility] 5 23:07:55 Low blood pressure 13889436 Completed 202301/16/2025 Asha Maldonado [facility], [facility] 5 23:08:28 Serum proteins below referenc e range 678835158 Active 2023 Asha Maldonado [facility], [facility] 5 23:07:55 Hypomagn esemia 427610014 Active 2023 Asha Hutchinsonoch [facility], [facility] 5 23:07:55 Gastroes ophageal reflux disease without esophagi tis 464259279 Active 2023 Asha Hutchinsonoch [facility], [facility] 5 23:07:55 Chronic gastriti s 0230714 Active 2023 Asha Maldonado [facility] 5 23:07:55 Intermit tent effusion of joint 721128885 Active 2023 Asha Hutchinsonoch [facility] 5 23:07:55 Family history of Autoimmu ne disease 135014600 Completed 202301/16/2025 Asha Hutchinsonoch [facility] 5 23:08:28 Seronega tive rheumato id arthriti s 555848158 Active 2023 Asha Hutchinsonoch [facility] 5 23:07:55 Candidia sis of skin 34756106 Completed 202301/16/2025 Asha Joel [facility] 5 23:08:28 Candidia sis of mouth 99418036 Completed 202301/16/2025 Asha Joel [facility] 5 23:08:28 Low back pain 955149151 Active 2024 Asha Joel [facility] 5 23:07:55 Problem of aging 28232546 Active 2024 Asha Joel [facility] 5 23:07:55 Subclavi an steal syndrome 26923519 Active 2024 Asha Maldonado [facility] 5 23:07:55 Pregnanc y 42482151 Completed 202411/23/2024 Jeff Mathew [facility] 5 07:51:47 Proteinu laura 70448397 Active 2024 [facility] 5 10:44:37 Problem Notes None recorded. Procedures Surgical History Date Name Laterality Status Provider Name and Address Organization Details Recorded Time 2024 carotid-subclavian artery bypass graft with vein completed [facility] 5 08:52:27 2023 esophagogastroduodenoscopy completed , [facility] 4 08:16:57 2023 colonoscopy completed [facility] 5 10:12:12 cholecystectomy completed , [facility] 5 23:08:53 ligation of fallopian tube completed , [facility] 5 23:09:11 complete repair of r otator cuff completed [facility] 3 14:29:55 Imaging Results None recorded. Procedure Notes None recorded. Medical Equipment None Reported. Allergies Allergen ID Allergen Name Allergen Category Reaction Reaction Severity Criticality Documentation Date Start Date Code Code System Note Provider Name and Address Organization Details Recorded Time 2559 codeine medicatio n Not available Not available Not available 02/20/2023 2670 RxNorm LORENATHA CARLO [facility] 3 15:32:46 2560 Effexor medicatio n Not available Not available Not available 02/20/2023 36431 2 RxNorm LORENATHA CARLO [facility] 3 15:33:00 2561 Lamictal medicatio n rash Not available Not available 02/20/2023 30903 2 RxNorm [facility]HA [facility] 3 15:33:14 2562 Celebrex medicatio n vomiting Not available Not available 02/20/2023 80925 7 RxNorm Tasneem Serna [facility] 4 10:14:57 2563 Abilify medicatio n Not available Not available Not available 02/20/2023 01144 3 RxNorm NICKY MATOS [facility] 3 15:33:48 2564 Celexa medicatio n Not available Not available Not available 02/20/2023 93603 8 RxNorm NICKY MATOS [facility] 3 15:34:11 51637 Effexor medicatio n other Not available Not available 05/16/2023 73758 2 RxNorm React ion: not effec tive; Comme nt: Recor ded 12/22 8:36A M by Izzy Young on, FORMULA TECHNICIAN, Offic e Visit ; Promo peggy; Signi fican ce: *; ; [facility] 4 14:03:01 00116 Abilify medicatio n other Not available Not available 05/16/2023 23933 3 RxNorm React ion: tremo r; Comme nt: Recor ded 12/22 8:36A M by Izzy Young on, FORMULA TECHNICIAN, Offic e Visit ; Promo peggy; Signi fican ce: *; ; [facility] 4 14:02:54 54859 metformin medicatio n diarrhea vomiting Not available Not available Not available 06/22/2024 6809 RxNorm [facility] 4 08:34:56 68368 methotrex ate medicatio n lemos-j ohnson syndrome Not available [facility] 10/05/2024 6851 RxNorm possi ble dx not compl etely clear if this is the final diagn osis but medardo d avoid compl etely . Sophia Casiano MD [address] [place] [address], [id number] , [facility], [facility] 4 13:20:43 Medications Name Sig Start Date Stop Date Status Note LastModified by Organization Details LastModified Time celecoxib 200 mg capsule TAKE 1 CAPSULE BY MOUTH EVERY DAY NEEDED 06/22 completed Not Available Not Available Not Available clotrimaz ole 10 mg patricia dissolve one in the mouth, swish and swallow 5 times dailhy for 10 days 11/22 completed Not Available Not Available Not Available nystatin 100,000 unit/mL oral suspensio n 10/05 completed Not Available Not Available Not Available carvedilo l 6.25 mg tablet bid 10/05 completed Not Available Not Available Not Available prednison e 10 mg tablet Take 1.5 tablets every day by oral route for 30 days. 2024 active Not Available Not Available Not Avai lable doxycycli ne hyclate 100 mg capsule TAKE 1 CAPSULE BY MOUTH TWICE DAILY FOR 7 DAYS 03/26 completed Not Available Not Available Not Available ipratropi um 0.5 mg-albute rol 3 mg (2.5 mg base)/3 mL nebulizat ion soln USE 3 ML VIA NEBULIZE R FOUR TIMES DAILY NEEDED FOR WHEEZING active Not Available Not Available No t Available azithromy pako 250 mg tablet TAKE 2 TABLETS BY MOUTH FOR 1 DAY THEN TAKE 1 TABLET BY MOUTH DAILY FOR 4 DAYS 02/20 completed Not Available Not Available Not Available fluconazo le 150 mg tablet TAKE 1 TABLET BY MOUTH EVERY 3 DAYS FOR 2 DOSES 10/05 completed Not Available Not Available Not Available metoprolo l succinate ER 50 mg tablet,ex tended release 24 hr TAKE 1 TABLET BY MOUTH EVERY DAY active Not Available Not Available No t Available valacyclo vir 1 gram tablet 11/15 completed Not Available Not Available Not Available hydrocodo ne 5 mg-acetam inophen 325 mg tablet TAKE 1 TABLET BY MOUTH EVERY 4 HOURS NEEDED FOR MODERATE PAIN 03/26 completed Not Available Not Available Not Available Nystop 100,000 unit/gram topical powder APPLY TO THE AFFECTED AREA(S) BY TOPICAL ROUTE 2 TIMES PER DAY 11/22 completed Not Available Not Available Not Available sucralfat e 100 mg/mL oral suspensio n 10/05 completed Not Available Not Available Not Available ondansetr on HCl 8 mg tablet TAKE 1 TABLET BY MOUTH THREE TIMES DAILY FOR 10 DAYS NEEDED FOR NAUSEA 11/15 completed Not Available Not Available Not Available sucralfat e 1 gram tablet TAKE 1 TABLET BY MOUTH THREE TIMES DAILY FOR 4 WEEKS 10/05 completed Not Available Not Available Not Available spironola ctone 25 mg-hydroc hlorothia zide 25 mg tablet TAKE 1 TABLET BY MOUTH ONCE DAILY 04/27 completed Not Available Not Available Not Available ondansetr on HCl 4 mg tablet 08/16 completed Not Available Not Available Not Available prednison e 20 mg tablet Take 1 tablet every day by oral route for 7 days. 08/16 completed Not Available Not Available Not Available metoprolo l succinate ER 100 mg tablet,ex tended release 24 hr TAKE 1 TABLET BY MOUTH DAILY 08/11 completed Not Available Not Available Not Available hydralazi ne 25 mg tablet TAKE 1 TABLET BY MOUTH THREE TIMES DAILY active Not Available Not Available No t Available amlodipin e 2.5 mg tablet TAKE 1 TABLET BY MOUTH EVERY DAY 03/26 completed Not Available Not Available Not Available clopidogr el 75 mg tablet TAKE 1 TABLET BY MOUTH DAILY active Not Available Not Available No t Available amlodipin e 5 mg tablet TAKE 1 TABLET BY MOUTH EVERY DAY active Not Available Not Available No t Available sulfameth oxazole 800 mg-trimet hoprim 160 mg tablet TAKE 1 TABLET BY MOUTH EVERY 12 HOURS FOR 3 DAYS 03/08 completed Not Available Not Available Not Available hydrocodo ne 10 mg-acetam inophen 325 mg tablet TAKE 1 TABLET BY MOUTH EVERY 4 HOURS FOR 4 DAYS 01/12 completed Not Available Not Available Not Available omeprazol e 40 mg capsule,d elayed release TAKE 1 CAPSULE BY MOUTH TWICE DAILY active Not Available Not Available No t Available aspirin 81 mg tablet,de layed release TAKE 1 TABLET BY MOUTH DAILY 06/27 /2023 completed Not Available Not Available Not Available tramadol 50 mg tablet TAKE 1 TABLET BY MOUTH TWICE DAILY FOR 7 DAYS FOR MODERATE TO SEVERE PAIN 08/04 completed Not Available Not Available Not Available acyclovir 800 mg tablet TAKE 1 TABLET BY MOUTH FIVE TIMES DAILY 04/25 completed Not Available Not Available Not Available ketorolac 0.5 % eye drops APPLY 1 DROP INTO AFFECTED EYE THREE TIMES DAILY FOR 1 WEEK IN THE OPERATIV E EYE active Not Available Not Available No t Available betametha sone acetate and sodium phos 6 mg/mL suspensio n for injection Take 1 mL by injectio n route. 08/16 completed Not Available Not Available Not Available oxycodone -acetamin ophen 5 mg-325 mg tablet TAKE 1 TABLET BY MOUTH FOUR TIMES DAILY NEEDED FOR PAIN AFTER SURGERY 03/26 completed Not Available Not Available Not Available prednisol one acetate 1 % eye drops,[employer] SHAKE LIQUID AND INSTILL 1 DROP IN LEFT EYE FOUR TIMES DAILY 04/25 completed Not Available Not Available Not Available lorazepam 0.5 mg tablet TAKE 1 TO 2 TABS BY MOUTH UP TO TWICE DAILY NEEDED FOR PANIC OR ANXIEY. USE INFREQUE NTLY POSSIBLE FOR EMERGENC Y 01/12 completed Not Available Not Available Not Available methocarb shruti 750 mg tablet TAKE 1 TABLET BY MOUTH EVERY 6 HOURS NEEDED 03/26 completed Not Available Not Available Not Available methotrex ate sodium 2.5 mg tablet TAKE 6 TABLETS BY MOUTH EVERY WEEK 10/05 completed Not Available Not Available Not Available meclizine 25 mg tablet TAKE 1 TABLET BY MOUTH THREE TIMES DAILY NEEDED 10/05 completed Not Available Not Available Not Available amlodipin e 10 mg tablet TAKE 1 TABLET BY MOUTH EVERY DAY 08/11 completed Not Available Not Available Not Available hydrocodo ne 7.5 mg-acetam inophen 325 mg tablet TAKE 1 TABLET BY MOUTH EVERY 8 HOURS FOR 7 DAYS 08/09 completed Not Available Not Available Not Available pantopraz ole 40 mg tablet,de layed release TAKE 1 TABLET BY MOUTH TWICE DAILY FOR 14 DAYS 11/15 completed Not Available Not Available Not Available erythromy pako 5 mg/gram (0.5 %) eye ointment APPLY 1/4 INCH IN LEFT EYE THREE TIMES DAILY 04/25 completed Not Available Not Available Not Available metformin 1,000 mg tablet TAKE 1 TABLET BY MOUTH DAILY 10/05 completed Not Available Not Available Not Available neomycin- polymyxin -dexameth 3.5 mg/mL-10, 000 unit/mL-0 .1% eye drops SHAKE LIQUID AND INSTILL 1 DROP IN RIGHT EYE FOUR TIMES DAILY 08/07 completed Not Available Not Available Not Available divalproe x ER 500 mg tablet,ex tended release 24 hr TAKE 1 TABLET BY MOUTH DAILY 03/26 completed Not Available Not Available Not Available oxycodone 5 mg capsule TAKE 1 CAPSULE BY MOUTH EVERY 8 HOURS FOR 7 DAYS 08/23 completed Not Available Not Available Not Available folic acid 1 mg tablet TAKE 1 TABLET BY MOUTH DAILY 11/15 completed Not Available Not Available Not Available hydrochlo rothiazid e 25 mg tablet TAKE 1 TABLET BY MOUTH EVERY DAY 10/05 completed Not Available Not Available Not Available mupirocin 2 % topical ointment 11/22 completed Not Available Not Available Not Available gabapenti n 100 mg capsule 2 in the morning, 1 at noon, 3 at bedtime 2024 active Not Available Not Available Not Avai lable lorazepam 1 mg tablet 10/05 completed Not Available Not Available Not Available levofloxa pako 500 mg tablet TAKE 1 TABLET BY MOUTH EVERY 24 HOURS FOR 7 DAYS 03/26 completed Not Available Not Available Not Available oxycodone -acetamin ophen 7.5 mg-325 mg tablet TAKE 1 TABLET BY MOUTH EVERY 8 HOURS NEEDED FOR PAIN 08/30 completed Not Available Not Available Not Available albuterol sulfate HFA 90 mcg/actua tion aerosol inhaler INHALE 1 TO 2 PUFFS BY MOUTH EVERY 4 TO 6 HOURS NEEDED FOR WHEEZING OR SHORTNES S OF BREATH active Not Available Not Available No t Available celecoxib 100 mg capsule 03/26 completed Not Available Not Available Not Available metformin ER 500 mg tablet,ex tended release 24 hr TAKE 1 TABLET BY MOUTH TWICE DAILY active Not Available Not Available No t Available irbesarta n 300 mg tablet TAKE 1 TABLET BY MOUTH DAILY 2024 active Not Available Not Available Not Avai lable naproxen 500 mg tablet TAKE 1 TABLET BY MOUTH TWICE DAILY NEEDED FOR PAIN 03/26 completed Not Available Not Available Not Available oxycodone 5 mg tablet Take 1 tablet every 8 hours by oral route for 30 days, for as needed for moderate to severe pain. take as infreque ntly as possible . 11/15 completed Not Available Not Available Not Available insulin lispro (U-100) 100 unit/mL subcutane ous pen INJECT 8 units at breakfas t, 6 units at lunch, and 113units at dinner active Not Available Not Available No t Available Ventolin 90 mcg/actua tion aerosol inhaler q 4-6 hrs prn wheezing /sob 08/07 completed Recorded 05/29/20 22 3:18PM by Caro Craven LPN, Office Visit; Refill Quantity : 3; Each; Not Available Not Available Not Available rosuvasta tin 40 mg tablet TAKE 1 TABLET BY MOUTH AT BEDTIME active Not Available Not Available No t Available bupropion HCl XL 300 mg 24 hr tablet, extended release TAKE 1 TABLET BY MOUTH EVERY DAY 04/25 completed Not Available Not Available Not Available bupropion HCl XL 150 mg 24 hr tablet, extended release TAKE 1 TABLET BY MOUTH EVERY DAY 08/11 completed Not Available Not Available Not Available tizanidin e 4 mg capsule TAKE 1 CAPSULE TWICE DAILY NEEDED FOR 2 DAYS 03/26 completed Not Available Not Available Not Available magnesium 1 daily; chelated 08/11 completed Not Available Not Available Not Available ipratropi um-albute rol four times daily 08/07 completed may split to individu al albutero l and ipratrop ium if insuranc e coverage is better same instruct ions; Recorded 09/01/20 22 1:57PM by Asha Gomez RN, Office Visit; Refill Quantity : 120; Applicat or; Not Available Not Available Not Available metoprolo l succinate daily 08/07 completed 436; Recorded 11/11/19 23 11:33AM by Anabella Parker LPN (Authori jeramie through Sophia Casiano MD), Annotati on/Adden dum; Refill Quantity : 100; Tablet; Not Available Not Available Not Available metformin QD 08/073 completed 436; Recorded 05/29/20 22 3:18PM by Caro Craven LPN (Authori jeramie through Sophia Casiano MD), Office Visit; Refill Quantity : 180; Tablet; Not Available Not Available Not Available Calcium 600 with Vitamin D3 1 daily 08/11 completed Not Available Not Available Not Available metformin ER 500 mg 24 hr tablet,ex tended release (gastric retention ) Take 1 tablet twice a day by oral route for 90 days. 2024 active Not Available Not Available Not Avai lable quetiapin e 50 mg tablet TAKE 1 TABLET BY MOUTH EVERY DAY AT BEDTIME active Not Available Not Available No t Available ferrous gluconate 324 mg (38 mg iron) tablet TAKE 1 TABLET BY MOUTH EVERY OTHER DAY WITH FOOD active Not Available Not Available No t Available Lantus Solostar U-100 Insulin 100 unit/mL (3 mL) subcutane ous pen ADMINIST ER 7 UNITS UNDER THE SKIN TWICE DAILY active Not Available Not Available No t Available amlodipin e besylate (bulk) QD 08/07 completed 436; Recorded 08/06/20 22 1:48PM by Asha Gomez RN (Authori jeramie through Sophia Casiano MD), Annotati on/Adden dum; Refill Quantity : 100; Tablet; Not Available Not Available Not Available roflumila st 500 mcg tablet TAKE 1 TABLET BY MOUTH EVERY DAY 11/15 completed Not Available Not Available Not Available OneTouch Verio test strips Take 1 strip 6 times a day by miscell. route. 2023 active Not Available Not Available Not Avai lable Simbrinza 1 %-0.2 % eye drops,[employer] SHAKE LIQUID AND INSTILL 1 DROP IN BOTH EYES TWICE DAILY active Not Available Not Available No t Available potassium chloride ER 20 mEq tablet,ex tended release 08/16 completed Not Available Not Available Not Available OneTouch Verio Flex Meter active Not Available Not Available Not Available Droplet Pen Needle 32 gauge x 32 USE DIRECTED FIVE TIMES DAILY active Not Available Not Available No t Available betametha sone 6 mg/mL injection suspensio n/norflur -HFC 245fa top spray Take 6 mg by miscell. route for 1 day. 08/11 completed Not Available Not Available Not Available Vyzulta 0.024 % eye drops APPLY 1 DROP IN LEFT EYE DAILY active Not Available Not Available No t Available roflumila st 250 mcg tablet TAKE 1 TABLET BY MOUTH EVERY DAY 05/04 completed Not Available Not Available Not Available OneTouch Delica Plus Lancet 33 gauge USE DIRECTED TO CHECK BLOOD GLUCOSE active Not Available Not Available No t Available Breztri Aerospher e 160 mcg-9mcg- 4.8mcg/ac tuation HFA aerosol inhaler INHALE 2 PUFFS BY MOUTH TWICE DAILY active Not Available Not Available No t Available Breztri Aerospher e 08/07 completed 0; Recorded 12/23/19 23 8:43AM by Anabella Parker LPN, Office Visit; Not Available Not Available Not Available Trelegy Ellipta 200 mcg-62.5 mcg-25 mcg powder for inhalatio n Inhale 1 puff every day by inhalati on route for 90 days. 2024 active Not Available Not Available Not Avai lable aspirin 81 mg capsule Take 1 capsule every day by oral route. active Not Available Not Available No t Available FreeStyle Ozzie 3 Sensor device USE DIRECTED TO CHECK GLUCOSE 4 TIMES DAILY. CHANGE EVERY 14 DAYS. active Not Available Not Available No t Available FreeStyle Ozzie 3 [place] active Not Available Not Available Not Available Vitals Date Recorded Body height Body mass index (BMI) Body weight Body temperature Oxygen saturation Oxygen saturation in Arterial blood by Pulse oximetry Heart rate Respiratory rate Systolic And Diastolic Provider Name and Address Organization Details Last Updated DateTime 5 162.56 cm 28.3 kg/m2 86960.7 4 g 96.9 [degF] 93 % 93 % 76 /min 20 /min 126/80 mm[Hg] MELE SANDERS [facility] 13:07:03 Social History Question Answer Notes LastModified by Organizat ion Details LastModified Time Tobacco Smoking Status Current Every Day Smoker ANABELLA montgomery [facility] 03/26/2023 14:37:34 What Was The Date Of Your Most Recent Tobacco Screening? 04/18/2025 [email or web address] Information not available 04/18/2025 What Is Your Current Pack Years? 30ormorepacky ears [email or web address] Information not available 03/26/2023 How Much Tobacco Do You Smoke? 1 PPD [email or web address] Information not available 03/26/2023 Sex: Unknown Functional Status Question Answer Note LastModified by Organizat ion Details LastModified Time Do you use any illicit or recreational drugs? No [email or web address] Information not available 03/26/2023 Do you or have you ever used any other forms of tobacco or nicotine? No [email or web address] Information not available 09/24/2023 What is your level of alcohol consumption? None [email or web address] Information not available 03/26/2023 Mental Status None recorded. Family History Relationship Description Onset Age of this Age Resolved Age Notes LastModified by Organization Details LastModified Time Daughter Diabetes mellitus [email or web address] Not available 09/24 14:28:06 Daughter Microscopic polyangiitis [email or web address] Not available 16:11:53 Sister Malignant tumor of oral cavity [email or web address] Not available 04/2023 14:28:31 Father Essential tremor [email or web address] Not available 09/24 14:28:43 Medical History No medical history recorded. Gynecological HistoryNo gynecological history recorded. Obstetrics History GPAL:G 0 P 0 0 0 0 Immunizations Vaccine Type Date Status Note Provider Nam e and Address Organization Details Recorded Time zoster recombinant 3 completed Asha montgomery [facility] 04/14/2023 15:57:56 zoster recombinant 3 completed Asha montgomery [facility] 08/07/2023 15:06:28 COVID-19, mRNA, LNP-S, PF, 100 mcg/0.5mL dose or 50 mcg/0.25mL dose 1 completed ANABELLA montgomery [facility] 03/26/2023 14:25:50 COVID-19, mRNA, LNP-S, PF, 30 mcg/0.3 mL dose 1 completed ANABELLA montgomery [facility] 03/26/2023 14:25:50 COVID-19, mRNA, LNP-S, PF, 30 mcg/0.3 mL dose 1 completed ANABELLA montgomery [facility] 03/26/2023 14:25:50 Influenza, split virus, trivalent, preservative 3 completed Not Available [facility] 11/05/2023 14:11:50 COVID-19, mRNA, LNP-S, PF, 30 mcg/0.3 mL dose 1 completed Not Available [facility] 11/05/2023 14:11:50 Tdap 7 completed Not [facility] 11/05/2023 14:11:50 pneumococcal polysaccharide PPV23 0 completed Not Available [facility] 11/05/2023 14:11:50 Influenza, split virus, trivalent, preservative 2 completed Not Available [facility] 11/05/2023 14:11:50 Influenza, split virus, trivalent, preservative 1 completed Not Available [facility] 11/05/2023 14:11:50 Influenza, split virus, trivalent, preservative 1 completed Not Available [facility] 11/05/2023 14:11:50 Influenza, split virus, trivalent, preservative 9 completed Not Available [facility] 11/05/2023 14:11:50 pneumococcal polysaccharide PPV23 1 completed Not Available [facility] 11/05/2023 14:11:50 Pneumococcal conjugate PCV 13 7 completed Not Available [facility] 11/05/2023 14:11:50 Influenza, split virus, trivalent, preservative 7 completed Not Available [facility] 11/05/2023 14:11:50 Past Encounters Encounter ID Performer Location Encounter Start Date Encounter Closed Date Diagnosis/Indication Diagnosis SNOMED-CT Code Diagnosis ICD10 Code Diagnosis Note [id number] Sophia Casiano MD [facility] ([facility]) [address] [place], [place] [address] 04/04/2025 12:14:48 04/05/2025 11:38:50 Bipolar disorder 02904972 F31.60 Chronic ob structive pulmonary disease 56964665 J44.9 we discussed need to getting off the cigarettes . she understand s. she is not ready. Intermitte nt effusion of joint 831773154 M12.40 M25.432 M12.431 stable despite decrease in prednisone Seronegati ve rheumatoid arthritis 741823186 M06.00 Neuropathic pain 7730025 09 M79.2 [id number] Sophia Casiano MD [facility] ([facility]) [address] [place] [phone] 04/18/2025 11:55:21 04/18/2025 13:12:42 Type 2 diabetes mellitus 47938312 E11.59 Anemia 349471872 D64.9 Chronic anemia 848096010 D64.9 Cramp in limb 138928999 R25.2 Vitamin D deficiency 347 51728 E55.9 Seronegati ve rheumatoid arthritis 122452449 M06.00 Neuropathic pain 5720756 09 M79.2 [id number] Sophia Casiano MD [facility] ([facility]) [address] [place] [phone] 04/27/2025 12:46:53 04/27/2025 17:31:17 Neuropathic pain 700506517 M79.2 Seronegati ve rheumatoid arthritis 100505357 M06.00 Chronic ki dney disease stage 3B 153369156 N18.32 Health Concerns Section Related Observation LastModified by Organization Detai ls LastModified Time None Recorded Concern Status LastModified by Organization Details LastModified Time None Recorded Payers Encounter Date Sequence Insurance Name Policy Number Policy Dill Covered Member ID Dill Member ID Guarantor Name 04/27/2025 1 [place] (MEDICARE REPLACEMENT HMO) [id number] Katerina Orozco [id number] Katerina Orozco 04/27/2025 2 [place] Katerina Orozco [id number] Katerina Orozco Notes Date Note Type Note Provider Name and Address Organization Details Recorded Time 04/27/2025 text/html one week f/u aft er pausing Spironolactone and increasing insulin and gabapentin sugars seem better after dinner since the increase in after dinner insulin increase in gabapentin seems to cause very little drowsiness during the day. her brandon is controlled. will continue current dose at least another weak. Sophia Casiano MD [address] [place] [address], [phone], [facility], [place] 04/27/2025 13:38:36 OBGyn Episode No OBEpisode recorded.
--- OUTSIDE RECORDS SUMMARY | 2025-05-04 08:11 | XMS_ITS | Encounter Summary ---
Author Organization [employer] [facility] Address [address] [place] [address] Care Team Providers Care Finger Cobbler Name Role Phone Unavailable Primary Care Provider Unavailabl e Encounter Details Date Type Department Care Team (Latest Contact Info) Description 06/25/2001 Outpatient Historical HIS [facility] Rafael Jeong MD [address] [place] [address] General symptoms NEC (Primary Dx); Osteoarthrosis, unspecified whether generalized or localized, unspecified site Social History Tobacco Use Types Packs/Day Years Used Date Smoking Tobacco: Never Assessed Comments Unknown Sex and Gender Information Value Date Recorded Sex Assigned at Not on file 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
--- OUTSIDE RECORDS SUMMARY | 2025-05-04 08:11 | XMS_ITS | Encounter Summary ---
Author Organization [employer] [facility] Address [address] [place] [address] Care Team Providers Care Automobile Service Station Attendant Name Role Phone Unavailable Primary Care Provider Unavailabl e Encounter Details Date Type Department Care Team (Latest Contact Info) Description 09/02/2001 Outpatient Historical HIS [facility] Rafael Jeong MD [address] [place] [address] LUMBAGO (Primary Dx); General symptoms NEC; HYPERTENSION NOS; FX LUMBAR VERTEBRA-CLOSE (CMS/HCC) Social History Tobacco Use Types Packs/Day Years Used Date Smoking Tobacco: Never Assessed Comments Unknown Sex and Gender Information Value Date Recorded Sex Assigned at Not on file 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
--- OUTSIDE RECORDS SUMMARY | 2025-05-04 08:11 | XMS_ITS | Encounter Summary ---
Author Organization [employer] [facility] Address [address] [place] [address] Care Team Providers Care Seismograph Shooter Name Role Phone Unavailable Primary Care Provider Unavailabl e Encounter Details Date Type Department Care Team (Latest Contact Info) Description 05/28/2001 Outpatient Historical HIS [facility] Rafael Jeong MD [address] [place] [address] Nonallopathic lesion of abdomen and other sites, not elsewhere classified (Primary Dx); General symptoms NEC; Closed fracture of dorsal (thoracic) vertebra without mention of spinal cord injury (CMS/HCC) Social History Tobacco Use Types Packs/Day Years Used Date Smoking Tobacco: Never Assessed Comments Unknown Sex and Gender Information Value Date Recorded Sex Assigned at Not on file 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
--- OUTSIDE RECORDS SUMMARY | 2025-05-04 08:11 | XMS_ITS | Encounter Summary ---
Author Organization [employer] [facility] Address [address] [place] [address] Care Team Providers Care Commercial Finance Analyst Name Role Phone Unavailable Primary Care Provider Unavailabl e Encounter Details Date Type Department Care Team (Latest Contact Info) Description 08/03/2001 Outpatient Historical HIS [facility] Rafael Jeong MD [address] [place] [address] Lumbago (Primary Dx); General symptoms NEC; Dyspepsia and other specified disorders of function of stomach; Closed fracture of unspecified bone Social History Tobacco Use Types Packs/Day Years Used Date Smoking Tobacco: Never Assessed Comments Unknown Sex and Gender Information Value Date Recorded Sex Assigned at Not on file 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
--- OUTSIDE RECORDS SUMMARY | 2025-05-04 08:11 | XMS_ITS | Encounter Summary ---
Author Organization [employer] [facility] Address [address] [place] [address] Care Team Providers Care Freight Car Loader Name Role Phone Unavailable Primary Care Provider Unavailabl e Encounter Details Date Type Department Care Team (Latest Contact Info) Description 04/02/2001 Outpatient Historical HIS [facility] Rafael Jeong MD [address] [place] [address] Osteoarthrosis, unspecified whether generalized or localized, unspecified site (Primary Dx); Panic disorder without agoraphobia; General symptoms NEC; Depressive disorder, not elsewhere classified Social History Tobacco Use Types Packs/Day Years Used Date Smoking Tobacco: Never Assessed Comments Unknown Sex and Gender Information Value Date Recorded Sex Assigned at Not on file 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
--- OUTSIDE RECORDS SUMMARY | 2025-05-04 08:11 | XMS_ITS | Encounter Summary ---
Author Organization [employer] [facility] Address [address] [place] [address] Care Team Providers Care Corral Boss Name Role Phone Unavailable Primary Care Provider Unavailabl e Encounter Details Date Type Department Care Team (Latest Contact Info) Description 04/29/2001 Outpatient Historical HIS [facility] Rafael Jeong MD [address] [place] [address] Osteoarthrosis, unspecified whether generalized or localized, unspecified site (Primary Dx); General symptoms NEC; Panic disorder without agoraphobia; Depressive disorder, not elsewhere classified Social History Tobacco Use Types Packs/Day Years Used Date Smoking Tobacco: Never Assessed Comments Unknown Sex and Gender Information Value Date Recorded Sex Assigned at Not on file 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
--- OUTSIDE RECORDS SUMMARY | 2025-05-04 08:12 | XMS_ITS | Encounter Summary ---
Author Organization [facility] Address [address] 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
--- OUTSIDE RECORDS SUMMARY | 2025-05-04 08:12 | XMS_ITS | Clinical Summary ---
Author Organization [facility] Arthur gifford [place] Address [address] [place] [address] Phone Care Team Providers Care Brass Finisher Name Role Phone Unavailable Primary Care Provider Unavailabl e Allergies Active Allergy Reactions Criticality Noted Date Comments Codeine Unknown 03/24/2025 Lamotrigine Rash Low 03/24/2025 Methotrexate [place] Kareem Syndrome High methotrexate Medications albuterol sulfate HFA 90 mcg/actuation aerosol inhaler INHALE 1 TO 2 PUFFS BY MOUTH EVERY 4 TO 6 HOURS NEEDED FOR WHEEZING OR SHORTNESS OF BREATH 01/20/20 25 Active amLODIPine (NORVASC) 5 mg tablet Take 5 mg by mouth daily. Active aspirin 81 mg Capsule Take 1 capsule every day by oral route. Active FreeStyle Ozzie 3 Sensor Device USE DIRECTED TO CHECK GLUCOSE 4 TIMES DAILY. CHANGE EVERY 14 DAYS. 02/10/20 25 Active Simbrinza 1-0.2 % Drops, Suspension SHAKE LIQUID AND INSTILL 1 DROP IN BOTH EYES TWICE DAILY Active budesonide 160 mcg-glycopyr 9 mcg-formot 4.8 mcg/actuation HFA inhaler Take 2 Puffs by inhalation 2 times daily. Active clopidogreL (PLAVIX) 75 mg Tablet Take 75 mg by mouth daily. Active ferrous gluconate 324 mg (38 mg iron) tablet TAKE 1 TABLET BY MOUTH EVERY OTHER DAY WITH FOOD 02/29/20 25 Active fluticasone-umec lidinium-vilante rol (TRELEGY ELLIPTA) 200-62.5-25 mcg Disk with Device Inhale 1 puff every day by inhalation route for 90 days. 01/20/20 25 Active hydrALAZINE (APRESOLINE) 25 mg tablet Take 25 mg by mouth 3 times daily. Active insulin glargine (LANTUS) 100 unit/mL pen syringe Inject 7 units twice a day by subcutaneous route. 01/20/20 Active insulin lispro (HumaLOG,ADMELOG ) 100 unit/mL pen syringe INJECT 6 UNITS THREE TIMES DAILY SUBCUTANEOUS BEFORE MEALS Active ipratropium-albu teroL (DUONEB) 0.5 mg-3 mg(2.5 mg base)/3 mL Solution for Nebulization USE 3 ML VIA NEBULIZER FOUR TIMES DAILY NEEDED FOR WHEEZING Active Irbesartan (AVAPRO) 300 mg tablet Take 300 mg by mouth daily. Active OneTouch Delica Plus Lancet 33 gauge USE DIRECTED TO CHECK BLOOD GLUCOSE 02/17/20 Active Vyzulta 0.024 % Drops APPLY 1 DROP IN LEFT EYE DAILY Active metFORMIN (GLUCOPHAGE XR) 500 mg Extended Release 24 hour tablet Take 500 mg by mouth 2 times daily. Active metoprolol succinate (TOPROL XL) 50 mg Extended Release 24 hour tablet Take 50 mg by mouth daily. Active omeprazole (PriLOSEC) 40 mg Capsule, Delayed Release(E.C.) Take 40 mg by mouth 2 times daily. Active predniSONE (DELTASONE) 10 mg tablet Take 2 Tablets by mouth daily. 03/07/20 Active spironolactone-h ydroCHLOROthiazi de (ALDACTAZIDE) 25-25 mg Tablet Take 1 Tablet by mouth daily. Active rosuvastatin (CRESTOR) 40 mg tablet Take 40 mg by mouth daily at bedtime. Active QUEtiapine (SEROquel) 50 mg tablet TAKE 1 TABLET BY MOUTH EVERY DAY AT BEDTIME Active gabapentin (NEURONTIN) 100 mg capsule Take 1 tab morning and afternoon and 3 tabs at bedtime. 150 Capsule 1 04/13/20 25 Active gabapentin (NEURONTIN) 100 mg capsule Take 1 Capsule (100 mg) by mouth 3 times daily. Start with 1 capsule at bedtime, increase to 3 times daily as tolerated 90 Capsule 1 5 12:50 PM CDT 03/24/20 25 025 Discontin ued([facility]) Hospital, Clinic, or Other Facility Administered Medication Ordered Dose Route Frequency Start Date End Date Status triamcinolone acetonide (KENALOG-40) injectable suspension 40 mgIndications:Chronic obstructive pulmonary disease, unspecified COPD type ([facility]) 40 mg IM ONE TIME ONLY 05/02/2025 05/02/2025 En ded Active Problems Problem Noted Date Diagnosed Date Tobacco use 05/02/2025 Encounters Date Type Department Care Team Description 05/02/2025 2:00 PM CDT Ancillary Procedure [facility] Imaging Services-[facility] [address] [place] [address] Kaylin Jean Baptiste MD Chronic obstructive pulmonary disease, unspecified COPD type ([facility]) 05/02/2025 1:20 PM CDT Office Visit [facility] [address] [place] [address] Kaylin Jean Baptiste MD PMR (polymyalgia rheumatica) (Primary Dx); Chronic obstructive pulmonary disease, unspecified COPD type ([facility]); On prednisone therapy; Tobacco use 05/02/2025 External Device Data STL ABSTRACTION Provider, Abstract 04/13/2025 Refill [facility] [address] [place] [address] Kaylin Jean Baptiste MD 04/07/2025 Telephone [facility] Rheumatology- [facility] [address] [place] [address] Kaylin Jean Baptiste MD Results 04/04/2025 External Device Data STL ABSTRACTION Provider, Abstract 03/31/2025 Abstract [facility][Note 3] [address] [place] [address] Kaylin Jean Baptiste MD 03/31/2025 Orders Only [facility] Health Information Management [place] [address] [place] [address] Provider, Abstract 03/24/2025 12:00 PM CDT Office Visit [facility][Note 3] [address] [place] [address] Kaylin Jean Baptiste MD Myalgia (Primary Dx); On prednisone therapy 03/14/2025 External Device Data STL ABSTRACTION Provider, Abstract 03/09/2025 External Device Data STL ABSTRACTION Provider, Abstract 03/08/2025 External Device Data STL ABSTRACTION Provider, Abstract 03/07/2025 External Device Data STL ABSTRACTION Provider, Abstract from Last 3 Months Immunizations Immunization Administration Dates Next Due Influenza Seasonal Unspecified Formulation IM Social History Tobacco Use Types Packs/Day Years Used Date Smoking Tobacco: Every Day Cigarettes Tobacco Cessation:Ready to Q uit: Not Asked; Counseling Given: Not Answered Comments Unknown Sex and Gender Information Value Date Recorded Sex Assigned at Not on file 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 Gender Identity Not on file Sexual Orientation Not on file Last Filed Vital Signs Vital Sign Reading [...] Mass Index 26.26 05/02/2025 1:12 PM CDT Plan of Treatment Upcoming Encounters Date Type Department Care Team (Late st Contact Info) Description 06/12/2025 1:40 PM CDT Video Visit [facility] Rheumatology- [facility] [address] [place] [address] Kaylin Jean Baptiste MD [address] [place] [address] Health Maintenance Due Date Last Done Comments DIABETES ANNUAL FOOT EXAM 1967 DIABETES ANNUAL RETINAL EXAM 1967 DIABETES MICROALBUMIN ANNUAL SCREEN 1967 FIT-DNA Q 3 years 1994 FIT/FOBT Q 1 year 1994 Flex Sig/CT Colonography Q 5 years 1994 OSTEOPOROSIS SCREENING 2014 COVID-19 Vaccine (2023- 5 season) 2024 08/16/2021, 12/14/2020, 11/16/2020 Medicare Advantage ([place]) Preventative Visit/Annual Wellness Visit 10/19/2024 RSV VACCINE (60+ or ) (1 - 1-dose 75+ series) 2024 DIABETES HBA1C Q 6 MONTHS 03/13/2025 09/13/2024 INFLUENZA VACCINE (#1) 2025 3, 08/16/2021, 09/27/2019, Additional history exists LDL CHOLESTEROL ANNUAL 09/14/2025 09/14/2024 DTAP/TDAP/TD VACCINES (2 - T d or Tdap) 06/19/2027 06/19/2017 COLORECTAL SCREENING 09/01/2034 09/01/2024 Colorectal Cancer Screening 09/01/2034 PNEUMOCOCCAL VACCINE 50+ YEARS Completed 0 02/23/2020, 12/17/2016, 10/19/2010 ZOSTER VACCINE Completed 08/07/2023, 04/14/2023 Procedures Procedure Name Priority Date/Time Associated Diagnosis Comments XR CHEST PA AND LATERAL 2 VW Routine 05/02/2025 2:00 PM CDT Chronic obstructive pulmonary disease, unspecified COPD type (CMS/HCC) COMPREHENSIVE METABOLIC PANEL Routine 03/24/2025 12:28 PM CDT Myalgia CBC WITH DIFFERENTIAL Routine 03/24/2025 12:28 PM CDT Myalgia CK Routine 03/24/2025 12:28 PM CDT Myalgia CORI SCREEN W/REFLEX Routine 03/24/2025 1 2:28 PM CDT Myalgia CYCLIC CITRULLINATED PEPTIDE AB IGG Routine 03/24/2025 12:28 PM CDT Myalgia RHEUMATOID FACTOR Routine 03/24/2025 12: 28 PM CDT Myalgia TSH Routine 03/24/2025 12:28 PM CDT Myalgia VITAMIN B12 AND FOLATE Routine 12:28 PM CDT Myalgia LACTATE DEHYDROGENASE Routine 03/24/2025 12:28 PM CDT Myalgia C-REACTIVE PROTEIN Routine 03/24/2025 12 :28 PM CDT Myalgia SEDIMENTATION RATE Routine 03/24/2025 12 :28 PM CDT Myalgia LIPID PANEL Routine 09/14/2024 HEMOGLOBIN A1C Routine 09/13/2024 from Last 3 Months or Most Recently Relevant to Health Maintenance Results * XR CHEST PA AND LATERAL [...] MD DIAGNOSTIC IMAGING ORDERABLE S Final Result * VITAMIN B12 AND FOLATE (03/24/2025 12:28 PM CDT) Pathologist [facility] VITAMIN B12 486 200 - 1100 pg/mL [facility] FOLATE, SERUM 13.0 ng/mL [facility] Comment: Reference Range Low: <3.4 Borderline: 3.4-5.4 Normal: >5.4 Test Performed at: [facility] [address] [place] [phone] Negrita Ford MD Blood 03/24/2025 12:2 8 PM CDT 03/24/2025 12:29 PM CDT Kaylin Jean Baptiste MD CHEMISTRY ORDERABLES Final R esult Performing Organization Address [facility] Co de Phone Number [facility] [phone] [facility] [address] [place] [phone] * CYCLIC CITRULLINATED PEPTIDE AB IGG (03/24/2025 12:28 PM CDT) Pathologist [facility] CYCLIC CITRULLINATED PEPTIDE AB IGG <16 UNITS [facility] Comment: Reference Range Negative: <20 Weak Positive: 20-39 Moderate Positive: 40-59 Strong Positive: >59 Test Performed at: [facility] [address] [facility] [place] [address] Negrita Ford MD Blood 03/24/2025 12:2 8 PM CDT 03/24/2025 12:29 PM CDT Kaylin Jean Baptiste MD CHEMISTRY ORDERABLES Final R esult [facility] [phone] [facility] [address] [place] [address] * (ABNORMAL) CBC WITH DIFFERENTIAL (03/24/2025 12:28 PM CDT) WBC 12.4(H) 3.8 - 10.8 Thousand/ uL [facility] RBC 3.86 3.80 - 5.10 Million/u L [facility] HEMOGLOBIN 11.5(L) 11.7 - 15.5 g/dL [facility] HEMATOCRIT 36.3 35.0 - 45.0 % [facility] MCV 94.0 80.0 - 100.0 fL [facility] MCH 29.8 27.0 - 33.0 pg [facility] MCHC 31.7(L) 32.0 - 36.0 g/dL [facility] Comment: For adults, a slight decrease in the calculated MCHC value (in the range of 30 to 32 g/dL) is most likely not clinically significant; however, it should be interpreted with caution in correlation with other red cell parameters and the patient's clinical condition. RDW 14.4 11.0 - 15.0 % [facility] PLATELETS 246 140 - 400 Thousand/ uL [facility] MPV 9.8 7.5 - 12.5 fL [facility] NEUTROPHIL ABSOLUTE 10,875(H) 1,500 - 7,800 cells/uL [facility] LYMPHOCYTE ABSOLUTE 955 850 - 3,900 cells/uL [facility] MONOCYTE ABSOLUTE 446 200 - 950 cells/uL [facility] EOSINOPHIL ABSOLUTE 74 15 - 500 cells/uL [facility] BASOPHILS ABSOLUTE 50 0 - 200 cells/uL [facility] NEUTROPHIL 87.7 % [facility] LYMPHOCYTES 7.7 % [facility] MONOCYTE 3.6 % [facility] EOSINOPHILS 0.6 % [facility] BASOPHILS 0.4 % [facility] COMMENT HEMATOLOGY [facility] Comment: Red cell morphology appears unremarkable Review of peripheral smear confirms automated results. Slide review performed at: [facility] [address] [address] Automation Test Developer: Radha Vang [id number] Test Performed at: [facility] [address] [place] [address] Luis Oliveira Blood 03/24/2025 12:2 8 PM CDT 03/24/2025 12:29 PM CDT Kaylin Jean Baptiste MD HEMATOLOGY ORDERABLES Final Result Performing Organization Address City/[facility]/ZIP Co de Phone Number [facility] [phone] [facility] [address] [place] [address] * SEDIMENTATION RATE (03/24/2025 12:28 PM CDT) ESR (SEDIMENTATION RATE) 18 < OR = 30 mm/h [facility] Comment: Test Performed at: [facility] [address] [place] [address] Luis Oliveira Blood 03/24/2025 12:2 8 PM CDT 03/24/2025 12:29 PM CDT us Kaylin Jean Baptiste MD HEMATOLOGY ORDERABLES Final Result [facility] [phone] [facility] [address] [place] [address] * RHEUMATOID FACTOR (03/24/2025 12:28 PM CDT) RHEUMATOID FACTOR <10 <14 IU/mL [facility] Comment: Test Performed at: [facility] [id number] [place] [address] GayatriMichelle Ford MD Blood 03/24/2025 12:2 8 PM CDT 03/24/2025 12:29 PM CDT Kaylin Jean Baptiste MD CHEMISTRY ORDERABLES Final R esult Performing Organization Address City/[facility]/ZIP Co de Phone Number [facility] [phone] [facility] [address] * C-REACTIVE PROTEIN (03/24/2025 12:28 PM CDT) Pathologist [facility] CRP <3.0 <8.0 mg/L [facility] Comment: Test Performed at: [facility] [place] [address] Negrita Ford MD Blood 03/24/2025 12:2 8 PM CDT 03/24/2025 12:29 PM CDT Kaylin Jean Baptiste MD CHEMISTRY ORDERABLES Final R [facility] Performing Organization Address [facility] Co de Phone Number [facility] [phone] [facility] [place] [address] * CORI SCREEN W/REFLEX (03/24/2025 12:28 PM CDT) Pathologist [facility] CORI SCREEN NEGATIVE NEGATIVE [facility] [place] Comment: CORI IFA is a first line screen for detecting the presence of up to approximately 150 autoantibodies in various autoimmune diseases. A negative CORI IFA result suggests an CORI-associated autoimmune disease is not present at this time, and does not reflex further. If there is high clinical suspicion for Sjogren's syndrome, testing for anti-SS-A/Ro antibody should be considered. Anti-Kaylin-1 antibody should be considered for clinically suspected inflammatory myopathies. AC-0: Negative International Consensus on CORI Patterns (https://doi.org/10.1515/uejh-5099-4467) For additional information, please refer to http://education.[employer]/faq/EYL749 (This link is being provided for informational/ educational purposes only.) Test Performed at: [facility] [place] [address] Negrita Ford MD Blood 03/24/2025 12:2 8 PM CDT 03/24/2025 12:29 PM CDT Kaylin Jean Baptiste MD CHEMISTRY ORDERABLES Final R esult [facility] [phone] [facility] [address] * TSH (03/24/2025 12:28 PM CDT) Pathologist [facility] TSH 3.20 0.40 - 4.50 mIU/L [facility] Comment: Test Performed at: [facility] [place] [address] GayatriMichelle Ford MD Blood 03/24/2025 12:2 8 PM CDT 03/24/2025 12:29 PM CDT us Kaylin Jean Baptiste MD CHEMISTRY ORDERABLES Final R esult Performing Organization Address City/[facility]/ZIP Co de Phone Number [facility] [phone] [facility] [address] * (ABNORMAL) LACTATE DEHYDROGENASE (03/24/2025 12:28 PM CDT) LD (LACTATE DEHYDROGENASE) 308(H) 120 - 250 U/L [facility] Comment: Test Performed at: [facility] [place] [address] Negrita Ford MD Blood 03/24/2025 12:2 8 PM CDT 03/24/2025 12:29 PM CDT Kaylin Jean Baptiste MD CHEMISTRY ORDERABLES Final R esult Performing Organization Address City/[facility] Co de Phone Number [facility] [phone] [facility] [address] * CK (03/24/2025 12:28 PM CDT) [facility] CK 136 18 - 225 U/L [facility] Comment: Test Performed at: [facility] [address] Negrita Ford MD Blood 03/24/2025 12:2 8 PM CDT 03/24/2025 12:29 PM CDT Kaylin Jean Baptiste MD CHEMISTRY ORDERABLES Final R esult Performing Organization Address [facility] Co de Phone Number [facility] [phone] [facility] [address] * (ABNORMAL) COMPREHENSIVE METABOLIC PANEL (03/24/2025 12:28 PM CDT) [facility] GLUCOSE 94 65 - 99 mg/dL [facility] Comment: Fasting reference interval BUN 40(H) 7 - 25 mg/dL [facility] CREATININE 1.91(H) 0.60 - 1.00 mg/dL [facility] GFR 27(L) > OR = 60 mL/min/1.7 3m2 [facility] BUN/CREAT RATIO 21 6 - 22 (calc) [facility] SODIUM 144 135 - 146 mmol/L [facility] POTASSIUM 4.2 3.5 - 5.3 mmol/L [facility] CHLORIDE 108 98 - 110 mmol/L [facility] CO2 28 20 - 32 mmol/L [facility] CALCIUM 8.0(L) 8.6 - 10.4 mg/dL [facility] TOTAL PROTEIN 5.7(L) 6.1 - 8.1 g/dL [facility] ALBUMIN 3.6 3.6 - 5.1 g/dL [facility] GLOBULIN 2.1 1.9 - 3.7 g/dL (calc) [facility] ALBUMIN/GLOBULIN RATIO 1.7 1.0 - 2.5 (calc) [facility] BILIRUBIN TOTAL 0.4 0.2 - 1.2 mg/dL [facility] ALKALINE PHOSPHATASE 61 37 - 153 U/L [facility] AST 17 10 - 35 U/L [facility] ALT 18 6 - 29 U/L [facility] Comment: Test Performed at: [facility] [address] [place] [address] Luis Oliveira Blood 03/24/2025 12:2 8 PM CDT 03/24/2025 12:29 PM CDT us Kaylin Jean Baptiste MD CHEMISTRY ORDERABLES Final R esult [facility] [phone] [facility] [address] [place] [address] * LIPID PANEL (09/14/2024) Pathologist [facility] ABSTRACTED CHOLESTEROL 147 ABSTRACTED TRIGLYCERIDE 122 ABSTRACTED HDL 88 ABSTRACTED LDL CALCULATED 35 Blood 09/14/2024 us Abstract Provider CHEMISTRY ORDERABLES Final Res ult * HEMOGLOBIN A1C (09/13/2024) Pathologist [facility] ABSTRACTED HGB A1C 9.9 % Blood 09/13/2024 us Abstract Provider CHEMISTRY ORDERABLES Final Res ult from Last 3 Months or Most Recently Relevant to Health Maintenance Insurance RX [facility] Medicare Part D RX [employer] Medicaid ANTH DUAL ADVANTAGE O [facility] MEDICAID [place] Advance Directives For more information, please contact: [phone] Documents on File Type Date Recorded 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
--- OUTSIDE RECORDS SUMMARY | 2025-05-04 08:12 | XMS_ITS | Encounter Summary ---
Author Organization [employer] [facility] Address [address] [place] [address] Care Team Providers Care Senior Partner Name Role Phone Unavailable Primary Care Provider Unavailabl e Encounter Details Date Type Department Care Team (Latest Contact Info) Description 11/14/2002 Outpatient Historical [facility] Rafael Jeong MD [address] [place] [address] FRACTURE NOS-CLOSED (Primary Dx); POSTMENOPAUSAL HORMONAL REPLACMT Social History Tobacco Use Types Packs/Day Years Used Date Smoking Tobacco: Never Assessed Comments Unknown Sex and Gender Information Value Date Recorded Sex Assigned at Not on file 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
--- OUTSIDE RECORDS SUMMARY | 2025-05-04 08:12 | XMS_ITS | Patient Health Record ---
Author Organization [facility] Address [address] [place] [address] Care Team Providers Care Java Software Developer Name Role Phone Edvin Casiano MD Primary Care Provider UnavailTremayne Marroquin Unavailable [phone] Juan Manuel Dominguez Unavailable [phone] Gretchen Edwards Unavailable [phone] Jonathan Ramirez Unavailable [phone] Allergies Allergen (clinical drug ingredient) Drug/Non Drug Allergy documented on EMR Reaction Allergy Type Onset Date Status aripiprazole Abilify Unknown Drug Allergy Acti ve celecoxib CeleBREX Unknown Drug Allergy Active citalopram CeleXA Unknown Drug Allergy Active Effexor Unknown Drug Allergy Active lamotrigine LaMICtal rash Drug Allergy Activ e codeine Codeine Unknown Drug Allergy Active metformin Metformin diarrhea Drug Allergy Active methotrexate Methotrexate Unknown Drug Allergy A ctive Results Component Value Reference Range Flag Notes Chest PA/Lat-14496 Reviewed date:11/08/2024 04:44:40 PM Interpretation: Performing Lab: Notes/Report: bag=[id number]&org=iSite ABOR 14495, 99590 Reviewed date:11/10/2024 04:35:14 PM Interpretation: Performing Lab: Notes/Report: Diagnosis Description: Chronic kidney disease, unspecified Diagnosis Description: Chronic obstructive pulmonary disease, unspecified Diagnosis Description: Other transient cerebral ischemic attacks and related syndromes Diagnosis Description: Occlusion and stenosis of bilateral carotid arteries Diagnosis Description: Encounter for other preprocedural examination ABO/Rh Interp O NEG Unknown Antibody Screen [id number] Reviewed date:11/10/2024 04:35:14 PM Interpretation: Performing Lab: Notes/Report: Diagnosis Description: Chronic kidney disease, unspecified Diagnosis Description: Chronic obstructive pulmonary disease, unspecified Diagnosis Description: Other transient cerebral ischemic attacks and related syndromes Diagnosis Description: Occlusion and stenosis of bilateral carotid arteries Diagnosis Description: Encounter for other preprocedural examination Blood Bank ID [id number] Unknown ABSC Interp Negative Basic Metabolic Panel (BMP) 69599 Reviewed date:11/10/2024 04:35:14 PM Interpretation: Performing Lab: Notes/Report: Diagnosis Description: Chronic kidney disease, unspecified Diagnosis Description: Chronic obstructive pulmonary disease, unspecified Diagnosis Description: Other transient cerebral ischemic attacks and related syndromes Diagnosis Description: Occlusion and stenosis of bilateral carotid arteries Diagnosis Description: Encounter for other preprocedural examination Sodium 143 136-145 MMOL/L Potassium 4.6 3.5-5.1 MMOL/L Chloride 110 98-107 MMOL/L HI CO2 21.4 20.0-31.0 MMOL/L Glucose Serum 303 71-110 MG/DL HI Testing p erformed at [facility], [address] [place] [address] [place] [address]. CLIA ID#: [id number] BUN 50 7-21 MG/DL HI Creat 1.51 .51-1.17 MG/DL HI K-gummkq-e-benzoquin one imine (NAPQI) is a metabolite of acetaminophen, NAPQI concentrations of apparoximately 10 mg/L correlation to toxic levels of acetaminophen demonstrates a greater than or equil to 10% change in results. NAPQI concentrations greater than this may lead to falsely depressed results for patient samples. Use of this assay is not recommended for patients undergoing treatment with phenindione, due to the potential for falsely depressed results. GFR 35.9 NA Calculation pe rformed from GFR calculator provided by the [employer]. Glomerular Filtration rate(GRF) is the best overall index of kidney function. Normal GFR varies according to age,sex, body size, and declines with age. The National [employer] recommends using the CKD-EPI Creatinine Equation(2020) to estimate GFR. Anion Gap 16 5-15 HI BUN/Creat Ratio 33.1 12.0-20.0 % HI Calcium 8.6 8.7-10.4 MG/DL LOW Osmo Serum,Calculated 321 280-300 MOSM/KG HI CBC Reflex Man Diff 93787, 8 2056 Reviewed date:11/10/2024 04:35:07 PM Interpretation: Performing Lab: Notes/Report: Diagnosis Description: Chronic kidney disease, unspecified Diagnosis Description: Chronic obstructive pulmonary disease, unspecified Diagnosis Description: Other transient cerebral ischemic attacks and related syndromes Diagnosis Description: Occlusion and stenosis of bilateral carotid arteries Diagnosis Description: Encounter for other preprocedural examination WBC 12.1 4.5-11.0 X10'3 HI RBC 3.37 4.00-5.20 X10'6 LOW Hgb 10.3 12.0-16.0 G/DL LOW Hct 33.4 36.0-46.0 % LOW MCV 99.1 80.0-100.0 FL MCH 30.6 27.0-31.0 PG MCHC 30.8 31.0-37.0 G/DL LOW Platelet 300 150-400 X10'3 RDW-SD 60.7 35.0-49.0 FL HI RDW-CV 16.4 12.2-15.6 % HI MPV 9.2 9.2-12.0 FL Review Auto Diff Conf PRBC-LR--P9016 Reviewed date:11/10/2024 04:35:14 PM Interpretation: Performing Lab: Notes/Report: Diagnosis Description: Chronic kidney disease, unspecified Diagnosis Description: Chronic obstructive pulmonary disease, unspecified Diagnosis Description: Other transient cerebral ischemic attacks and related syndromes Diagnosis Description: Occlusion and stenosis of bilateral carotid arteries Diagnosis Description: Encounter for other preprocedural examination Number of Units 2 NA Product Type Blood Product NA WBC Auto Diff--06423 Reviewed date:11/10/2024 04:35:07 PM Interpretation: Performing Lab: Notes/Report: Added by Discern Rules Neutro Auto% 87.7 40.0-70.0 % HI Lymph Auto% 5.5 22.0-44.0 % LOW Addison Auto% 2.3 3.0-7.0 % LOW Eos Auto% .1 2.0-4.0 % LOW Baso Auto% 0.6 0.0-1.0 % NRBC% .00 .00-.20 /100 intact WBC's Neutro Abs 10.60 .80-7.70 HI Absolute Neutrophil Count 73129 NA Lymph Abs .66 .10-4.10 Addison Abs .28 .20-1.00 Eos Abs .01 .00-.40 Baso Abs .07 .00-.20 NRBC# .00 .00-.20 X10'3 Imm Gran Abs .46 .00-.10 HI Imm Gran% 3.8 .0-.4 % HI Schedule Confirmation Reviewed date:11/10/2024 04:35:00 PM Interpretation: Performing Lab: Notes/Report: Carotid Angiogram possible Stent Placeme POCT-ACT--NO CPT Reviewed date:11/10/2024 04:35:00 PM Interpretation: Performing Lab: Notes/Report: POCT-ACT 351 75-120 SEC HI POCT-ACT--NO CPT Reviewed date:11/10/2024 04:35:00 PM Interpretation: Performing Lab: Notes/Report: POCT-ACT 112 75-120 SEC zzzCarotid Angiogram possibl e Stent Placeme Reviewed date:11/10/2024 04:35:00 PM Interpretation: Performing Lab: Notes/Report: See Below For Report This report was dictated outside of the [employer] system. Read See Below For Report Glucometer WBG--92367 Reviewed date:11/10/2024 04:35:00 PM Interpretation: Performing Lab: Notes/Report: Glucometer WBG 158 65-110 MG/DL HI Notify R N~Meter: [id number]~Flour Worker: [id number] KYLE NOLAND Carotid Doppler Unilatera l Left-82592 Reviewed date:01/12/2025 04:20:39 PM Interpretation: Performing Lab: Notes/Report: dks=[id number]&org=iSite lje=[id number]&org=iSite POCT-ACT--NO CPT Reviewed date:11/10/2024 04:35:00 PM Interpretation: Performing Lab: Notes/Report: POCT-ACT 365 75-120 SEC HI Glucometer WBG--82557 Reviewed date:11/10/2024 04:34:54 PM Interpretation: Performing Lab: Notes/Report: Glucometer WBG 145 65-110 MG/DL HI Asymptom atic~Meter: [id number]~Flour Worker: [id number] RITU PEREZ zzzCarotid Angiogram possibl e Stent Placeme Reviewed date:11/10/2024 04:35:07 PM Interpretation: Performing Lab: Notes/Report: yof=[id number]&org=iSite Chest PA/Lat-94279 Reviewed date:11/10/2024 04:35:07 PM Interpretation: Performing Lab: Notes/Report: See Below For Report Chest PA/Lat Diagnosis Description: Chronic kidney disease, unspecified Read See Below For Report US Carotid Doppler Bilateral -56630 Reviewed date:11/08/2024 04:44:52 PM Interpretation: Performing Lab: Notes/Report: gjd=[id number]&org=iSite chc=[id number]&org=iSite US Carotid Doppler Unilatera l Left-39114 Reviewed date:01/10/2025 03:59:31 PM Interpretation: Performing Lab: Notes/Report: This report was dictated at the [facility] FINAL REPORT Read This report was dictated at the [facility] US Carotid Doppler Bilateral -32580 Reviewed date:10/26/2024 02:05:06 PM Interpretation: Performing Lab: Notes/Report: This report was dictated at the [facility] FINAL REPORT Read This report was dictated at the [facility] Schedule Confirmation Reviewed date:11/10/2024 04:35:00 PM Interpretation: Performing Lab: Notes/Report: Carotid Angiogram possible Stent Placeme Glucometer WBG--40065 Reviewed date:11/10/2024 04:35:07 PM Interpretation: Performing Lab: Notes/Report: Glucometer WBG 85 65-110 MG/DL Meter: [id number]~Flour Worker: [id number] ANAIS PARRISH ABORH-30591,39880 Reviewed date:11/10/2024 04:35:14 PM Interpretation: Performing Lab: Notes/Report: FRANCOIS Pérez Interp O NEG Unknown Crossmatch--[id number] Reviewed date:11/10/2024 04:35:14 PM Interpretation: Performing Lab: Notes/Report: Blood Bank ID [id number] Unknown Blood Product Notification Hold Unknown IS 0+ XM Interp Compatible IS 0+ XM Interp Compatible Reason For Referral Reason subclavian steal syn drome based on differential blood pressures Diagnosis 1 Steal syndrome, subc lavian (G45.8) Referring Provider First Name Edvin Referring Provider Last Name Casiano Referring Provider [facility] Referred Organization [facility] Referred Provider Juan Manuel Dominguez Referred Address [address] [place] [address] [address],[address],[place] Referred Provider Specialty Vascular Blas kamryn General Notes Silvina Dodd 09/01/20 04:12:01 PM >Called to see if patient has had any testing done. Nurse to call back, Silvina Dodd 09/08/2024 01:12:43 PM >patient states that she has had some ultrasounds done at [facility] in [place]., Silvina Dodd 09/08/2024 01:24:06 PM >Called and requested images and reports from [facility] - they have an upper extremity duplex and CTA, Silvina Dodd 09/09/2024 12:47:14 PM >please schedule with Dr. Dominguez or Jaxson. Patient may need ultrasound of the upper extremity, Silvina Dodd 09/09/2024 12:47:28 PM >testing from [facility] was venous dopplers, Radha Parra 09/13/2024 11:29:52 AM >Appointment scheduled on 12 @ 2:30Fidel Brittany M 09/26/2024 08:31:37 AM >Patient in the hospital, will call when d/c to r/s. Referral Priority Routine Medications Medication SIG (Take, Route, Frequency, Duration) Notes Start Date End Date Status HYDROcodone-Acetaminop hen 10-325 MG Tablet 1 tablet as needed Orally every 6 hrs 11/23/2024 Active Ipratropium-Albuterol 0.5-2.5 (3) MG/3ML Solution 3 mL as needed Inhalation three times a day 10/26/2024 Active Vyzulta 0.024 % Solution 1 drop into affected eye in the evening Ophthalmic Once a day Active Irbesartan 300 MG Tablet 1 tablet Orally Once a day A ctive Aspirin 81 MG Tablet Delayed Release 1 tablet Orally Once a day Active metFORMIN HCl 500 MG Tablet 1 tablet with a meal Orally twice a day 10/26/2024 Active Albuterol Sulfate HFA 108 (90 Base) MCG/ACT Aerosol Solution 2 puffs as needed Inhalation every 6 hrs Active Metoprolol Succinate ER 50 MG Tablet Extended Release 24 Hour 1 tablet Orally Once a day A ctive amLODIPine Besylate 10 MG Tablet 1 tablet Orally Once a day A ctive Omeprazole 40 MG Capsule Delayed Release 1 capsule Orally Twice a day 10/26/2024 Active Desiree Paytonphere 160-9-4.8 MCG/ACT Aerosol 2 puffs Inhalation Twice a day 10/26/2024 Active predniSONE 10 MG Tablet 1 tablet Orally twice a day 10/26/2024 Active Clopidogrel Bisulfate 75 MG Tablet 1 tablet Orally Once a day A ctive QUEtiapine Fumarate 50 MG Tablet 1 tablet Orally twice a day 10/26/2024 Active Ferrous Gluconate 324 (38 Fe) MG Tablet 1 tablet Orally every other day 10/26/2024 Active Rosuvastatin Calcium 40 MG Tablet 1 tablet Orally Once a day A ctive hydrALAZINE HCl 25 MG Tablet 1 tablet with food Orally three times a day 10/26/2024 Active Clotrimazole 10 MG Patricia 1 patricia while on immunosuppressive medicine Mouth/Throat Five times a day 10/26/2024 Not-Taking Insulin Glargine 100 UNIT/ML Solution 14 units Subcutaneous twice a day 10/26/2024 Active Insulin Lispro 100 UNIT/ML Solution 6 units Injection at breakfast and lunch and 11 units at dinner 10/26/2024 Active Social History Tobacco Use: Social History Observation Description Date Details (start date - stop date) Former Smoker NA - NA Social History Drugs/Alcohol: Social Info Question Answer Notes Drugs Have you used drugs other than those for medical reasons in the past 12 months? Yes Marijuana? Yes Caffeine Intake: 3-4 cups per day Drug/Alcohol: Social Info Question Answer Notes AUDIT-C (Standard) Did you have a drink containing alcohol in the past year? No Points 0 Interpretation Negative Tobacco Use: Social Info Question Answer Notes Tobacco Control (Standard) Tobacco use: Former smoker How long has it been since you last smoked? 3-6 months Additional Details Category Social Info Options Details Drugs/Alcohol: Do you smoke marijuana? Ad mits, no card Do you drink alcohol? No Problems Problem Type SNOMED Code ICD Code Onset Dates Problem Status W/U Status Risk Notes Problem Essential tremor (243459304) Essential tremor (G25.0) Active confirmed Problem Occlusion and stenosis of multiple and bilateral cerebral arteries (314708074) Carotid stenosis, bilateral (I65.23) Active confirmed Problem Carotid artery stenosis (77417868) Carotid stenosis (I65.29) Active confirmed Problem Chronic kidney disease (198657900) Chronic kidney disease (N18.9) Active confirmed Problem Subclavian steal syndrome (86648820) Subclavian steal syndrome (G45.8) Active confirmed Problem Chronic obstructive pulmonary disease (56399837) Chronic obstructive pulmonary disease (COPD) (J44.9) Active confirmed Problem Primary hypertension (33970453) Primary hypertension (I10) Active confirmed Problem Aneurysm of descending thoracic aorta (disorder) (3297049536024) Aneurysm of descending thoracic aorta without rupture (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) Active confirmed Problem Subclavian steal syndrome (50887118) Steal syndrome, subclavian (G45.8) Active confirmed Vital Signs Heart Rate 86 /min 12/27/2024 Temperature 98.8 degrees Fahrenheit 12/27/2024 Height-cm 162.56 cm 12/27/2024 Oximetry 96 % 11/23/2024 Blood pressure diastolic 90 mm Hg 12/27/2024 Weight-kg 69.1 kg 12/27/2024 Height 64 in 12/27/2024 Blood pressure systolic 160 mm Hg 12/27/2024 Weight 152.34 lbs 12/27/2024 BMI 26.15 kg/m2 12/27/2024 Encounters Encounter Location Date Provider Diagnosis [facility] [address] [place] [address] [facility] [address] [place] [address] 11/09/2024 Juan Manuel Dominguez [facility] [address] [place] [address] [facility] [address] [place] [address] 10/26/2024 Juan Manuel Dominguez Steal syndrome, subclavian G45.8 and Carotid stenosis, bilateral I65.23 [facility] [address] [place] [address] 11/23/2024 Gretchen Edwards Carotid stenosis, bilateral I65.23 ; Subclavian steal syndrome G45.8 and Aneurysm of descending thoracic aorta without rupture I71.23 [facility] [address] [place] [address] 12/27/2024 Jonathan Ramirez Carotid stenosis, bilateral I65.23 ; Subclavian steal syndrome G45.8 and Primary hypertension I10 [facility] [address] [place] [address] 01/10/2025 Juan Manuel Dominguez Subclavian steal syndrome G45.8 [facility] [address] [place] [address] 10/26/2024 Juan Manuel Dominguez Chronic kidney disease N18.9 ; Chronic obstructive pulmonary disease (COPD) J44.9 ; Steal syndrome, subclavian G45.8 ; Carotid stenosis, bilateral I65.23 and Preop testing Z01.818 [facility] [address] [place] [address] 11/24/2024 Gretchen Edwards Assessments Encounter Date Diagnosis (ICD Code) Assessment Notes Treatment Notes Treatment Clinical Notes Section Notes 10/26/2024 Carotid stenosis, bilateral (ICD-10 - I65.23) Right carotid stent is moderately compressed but patent and flowing both on ultrasound and CT angiogram. 10/26/2024 Steal syndrome, subclavian (ICD-10 - G45.8) Images of CT angiogram were reviewed. She has a severely calcified left subclavian artery at the arch with occlusion. There is reconstitution of the subclavian artery via the vertebral artery which is fairly small. She has bilateral carotid stents in place. Both are fairly compressed with the left being worse than the right due to calcific arterial disease. The left carotid stent is actually compressed completely on itself in the proximal portion. There also is calcified plaque at the origin of the left common carotid artery with possible moderate to high-grade stenosis. Carotid duplex was performed showing flow through bilateral internal carotid artery stents with less than 20% in-stent restenosis however the proximal portion of the left stent does not visible due to severe calcification. Vertebral flow is antegrade on the right and retrograde on the left. I had a long discussion with the patient that it is difficult to tell what is causing her balance and falling problems. It very well could be from subclavian steal syndrome but could also be from some other issue such as the inner ear.. There also could be a component of cerebral hypoperfusion as she also has proximal carotid stenosis on the left and a compressed stent plus the steal syndrome. I have offered her stent placement of the origin of the left subclavian artery via a retrograde approach with concomitant left carotid subclavian bypass. The patient understands the benefits and risks of the procedure including the risk of bleeding, infection, arterial injury/thrombosis, renal failure, and stroke. The patient gives consent for surgery. I discussed with her that at some point in the future we will need to consider left carotid endarterectomy with explantation of her carotid stent due to the compression from the calcium. Follow-up after surgery 10/26/2024 Chronic kidney disease (ICD-10 - N18.9) 11/23/2024 Carotid stenosis, bilateral (ICD-10 - I65.23) Patient states that she prefers her PCP to do annual surveillance that she does not live in the area. 11/23/2024 Subclavian steal syndrome (ICD-10 - G45.8) Overall doing well today, unsure if her edema is from the procedure, reduced use, or her polymyalgia rheumatic flare.Recommend using her left upper extremity is much as possible, it is her dominant arm.Also recommend follow-up with primary care with continued blood pressure checks as her blood pressure remains elevated in clinic today on bilateral arms.Continue medications as directed and documented, with plan to follow-up at 1 month with duplex at that time. 12/27/2024 Carotid stenosis, bilateral (ICD-10 - I65.23) Patient states that she prefers her PCP to do annual surveillance that she does not live in the area. 12/27/2024 Subclavian steal syndrome (ICD-10 - G45.8) 74-year-old who is status post left carotid to subclavian bypass by Dr. Dominguez on . Patient has done well postoperatively and reports regaining her function back in her left arm denies any pain or discomfort but does continue to have autoimmune numbness and tingling bilateral upper upper extremities. Patient's blood pressure is elevated today but continues to follow-up with her primary care doctor in [place] for this. Pulmonary ultrasound shows ICA velocity of 132 and less than 20% in-stent restenosis on the left and that the bike past graft is patent. Patient understand that if they develop lower extremity pain or signs or symptoms of claudication to notify us RUY. Patient was educated on signs and symptoms of limb ischemia such as blue-black discoloration, loss of function, blanching, cold extremities, or pain and to go to the ER immediately. Patient denies all these and verbalized understanding. Patient continues to take Plavix, aspirin, rosuvastatin. Will follow-up in 6 months with carotid and subclavian ultrasound. 01/10/2025 Subclavian steal syndrome (ICD-10 - G45.8) Carotid duplex left side: Less than 20% in-stent restenosis left internal carotid artery. Antegrade flow left vertebral artery with dampened waveforms. Carotid subclavian bypass is widely patent. 12/27/2024 Primary hypertension (ICD-10 - I10) 11/23/2024 Aneurysm of descending thoracic aorta without rupture (ICD-10 - I71.23) 10/26/2024 Chronic obstructive pulmonary disease (COPD) (ICD-10 - J44.9) 10/26/2024 Steal syndrome, subclavian (ICD-10 - G45.8) 10/26/2024 Carotid stenosis, bilateral (ICD-10 - I65.23) 10/26/2024 Preop testing (ICD-10 - Z01.818) Plan Of Treatment Pending Test Test Name Order Date ABORh 99237, 71509 10/26/2024 Antibody Screen 22366 10/26/2024 Basic Metabolic Panel (BMP) 86418 2024 CBC Reflex Man Diff 65026, 08318 025 Electrocardiogram 12 Lead Tracing-56201 10/26/2024 PRBC-LR--P9016 10/26/2024 Next Appt Details Provider Name:Tremayne acharya, 05/10/2025 09:00:00 AM, [address] [place] [address] [address], [place], [address], Provider Name:Gretchensophia baird, 05/10/2025 09:30:00 AM, [address] [place] [address] [address], [place], [address], Insurance Providers Payer Name Payer Address Payer Phone Subscriber Number Group Number Insured Name Patient Relationship to Insured Coverage Start Date Coverage End Date [employer] [place] [employer] Medicare Replacement [address] [place] [address] [id number] Brothert onKaterina Self - patient is the insured [place] Medicaid [address] [place] [address] [id number] Brothert onKaterina Self - patient is the insured Medical (General) History Medical History History ICD Code diabetes mellitus hypertension bipolar disorder obsessive-compulsive personality disorde r insomnia Essential tremor G25.0 Old myocardial infarction I25.2 Emphysema, unspecified J43.9 Chronic obstructive pulmonary disease (C OPD) J44.9 Chronic kidney disease N18.9 Thoracic aortic aneurysm, without ruptur e I71.2 Carotid stenosis I65.29 Hyperlipidemia, unspecified E78.5 Post-traumatic stress disorder Surgical History Surgery Date(Month/Year) cholecystectomy left wrist surgery for fracture lipoma removed from axilla carotid stent placement - bilateral cataract - bilateral gallbladder
--- OUTSIDE RECORDS SUMMARY | 2025-05-04 08:12 | XMS_ITS | Encounter Summary ---
Author Organization [facility] Address [address] 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
--- OUTSIDE RECORDS SUMMARY | 2025-05-04 08:12 | XMS_ITS | Encounter Summary ---
Author Organization [employer] [facility] Address [address] [place] [address] Care Team Providers Care Dressmaker Or Tailor Name Role Phone Unavailable Primary Care Provider Unavailabl e Encounter Details Date Type Department Care Team (Latest Contact Info) Description 12/15/2002 Outpatient Historical HIS [facility] Rafael Jeong MD [address] [place] [address] LUMBAGO (Primary Dx) Social History Tobacco Use Types Packs/Day Years Used Date Smoking Tobacco: Never Assessed Comments Unknown Sex and Gender Information Value Date Recorded Sex Assigned at Not on file 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
--- OUTSIDE RECORDS SUMMARY | 2025-05-04 08:12 | XMS_ITS | Clinical Summary ---
Author Organization [facility] Address [address] 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
--- OUTSIDE RECORDS SUMMARY | 2025-05-04 08:12 | XMS_ITS | Encounter Summary ---
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 Name Role Phone Unavailable Primary Care Provider Unavailabl e Encounter Details Date Type Department Care Team (Latest Contact Info) Description 01/28/2001 Outpatient Historical HIS [facility] Rafael Jeong MD [address] [place] [address] Urinary tract infection, site not specified (Primary Dx); Other specified menopausal and postmenopausal disorder; Lumbago Social History Tobacco Use Types Packs/Day Years Used Date Smoking Tobacco: Never Assessed Comments Unknown Sex and Gender Information Value Date Recorded Sex Assigned at Not on file 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
--- OUTSIDE RECORDS SUMMARY | 2025-05-04 08:12 | XMS_ITS | Data Portability ---
Author Organization [facility], [place], [facility] Address [address] [address] Care Team Providers Care Clip On Sunglasses Inspector Name Role Phone EDVIN CASIANO Primary Care Provider Unavailabl e Assessment Encounter Date Assessment Date Assessment LastModified by Organization Details LastModified Time 01/19/2025 01/19/2025 she has cut back her carbs pretty well. she the a good sized salad and one large chicken strip for lunch. [email or web address] have her larynx evaluated in a few weeks. [email or web address] Not available 01/19/2025 14:59:40 02/16/2025 02/16/2025 she will reschedule for Dr. Hloder. [email or web address] Not available 02/16/2025 13:47:18 04/04/2025 04/04/2025 she is sleeping much better reduce sodium intake for edema call if it worsens [email or web address] Not available 04/04/2025 12:59:13 04/18/2025 04/18/2025 large workup by rheum including b12 tsh cmp cbc etc.magnesium not dome [email or web address] Not available 04/18/2025 12:12:29 Plan of Treatment Reminders Order Date Submit Date Provider Last Modified By Organization Details Last Modified Time Details Appointments OFFICE VISIT MIKE 2024 12:00P Juju Casiano MD Not available Not available Not available Lab microal bumin/c reatini ne, mass ratio, urine 2024 025 [facility], [address] [facility] [address], [address] [place], [address], 04/28/2025 10:26:34 CMP, serum or plasma 2024 025 [facility], 805 [facility], [address], [address], 04/18/2025 14:01:18 magnesi um, serum or plasma 2024 025 [facility], [address] [place] [address], [address], [place], [address], 04/19/2025 10:46:50 C-react michael protein , quantit ative, serum or plasma 2024 025 [facility], [address] [place], [address], 04/19/2025 10:46:51 ESR (erythr ocyte sedimen tation rate), blood [address] [facility] ([facility] [address] [place], [address], 04/18/2025 14:08:54 vitamin D, 25-hydr oxy, total, serum 2024 025 [facility], [address] [facility], [place], [address], 04/19/2025 10:46:52 iron + TIBC + ferriti n, serum 2024 025 [facility], [address] [place] [address], [address], [place], [address], 04/19/2025 10:46:48 CBC 2024 025 [facility], [address] [facility], [address], [address], 04/18/2025 13:42:34 Referral audiolo gist referra l 2024 025 [email or web address] Hank Holder MD, [address] , [place], [address], 01/19/2025 22:42:[address] referra l 2024 025 [email or web address] Hank Holder MD, [address] , [place], [address], 01/30/2025 10:18:31 Procedures None recorde d. Surgeries None recorde d. Imaging None recorde d. Medication Orders prednis one 10 mg tablet 2024 025 [id number], [address], [place], [place], [id number], 04/27/2025 13:37:31 gabapen tin 100 mg capsule 2024 025 [facility] #[id number], [address], [place], [place], [id number], 04/18/2025 12:40:20 gabapen tin 100 mg capsule [email or web address] [place] [address] [facility], [address], [place], [place], [id number], 04/04/2025 12:59:08 albuter ol sulfate HFA 90 mcg/act uation aerosol inhaler 2024 025 [facility] #11687, [address], [place], [place], [id number], 04/04/2025 12:52:18 quetiap ine 50 mg tablet 2024 025 [facility] #[id number], [address], [place], [place], [id number], 02/16/2025 13:47:32 metform in ER 500 mg 24 hr tablet, extende d release (gastri c retenti on) 2024 025 [email or web address] [facility][id number], [address], [place], [place], [id number], 02/16/2025 13:48:01 insulin glargin e (U-100) 100 unit/mL (3 mL) subcuta neous pen 2024 025 [email or web address] [facility] #28709, [address], [place], [place], [id number], 04/04/2025 12:31:18 albuter ol sulfate HFA 90 mcg/act uation aerosol inhaler 2024 025 [facility] #[id number], [address], [place], [place], [id number], 01/19/2025 15:00:05 Trelegy Ellipta 200 mcg-62. 5 mcg-25 mcg powder for inhalat ion 2024 025 [facility]278, [address], [place], [place], [id number], 01/19/2025 15:00:06 Patient TargetsNo targets recorded. Patient InstructionsNo instructions recorded. 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 Referral fo r Laryngeal stridor Referring Physician: Edvin Casiano [facility] Medicine, Encounter Date: 01/19/2025 Refrigeration Engine Operator Referral for Hea ring loss Referring Physician: Edvin Casiano [facility], Encounter Date: 01/19/2025 Results Created Date Observation Date Name Description Value Unit Range Abnormal Flag Note LastModifiedBy Organization Detail LastModifiedTime 04/18/2004/18/2025 CBC WBC 11.0 x10 4.0-10 .5 high Not Available [facility] [address] [facility] [address], [place], [address], 04/18/2025 13:42:34 04/18/2004/18/2025 CBC RBC 3.86 x10 3.50-5 .50 Not Available [facility] [address] [facility] 1, [place], [address], 04/18/2025 13:42:34 04/18/20 25 04/18/2025 CBC HGB 11.7 g/dL 12.0-1 6.0 low Not Available [facility] [address] [facility], [place], [address], 04/18/2025 13:42:34 04/18/20 25 04/18/2025 CBC HCT 36.9 % 37.0-4 7.0 low Not Available [facility] [address] [facility] 1, [place], [address], 04/18/2025 13:42:34 04/18/20 25 04/18/2025 CBC MCV 95.5 fL 80.0-9 9.9 Not Available [facility] [address] [facility] 1, [place], [address], 04/18/2025 13:42:34 04/18/20 25 04/18/2025 CBC MCH 30.3 pg 27.0-3 2.0 Not Available [facility] [address] [facility] 1, [place], [address], 04/18/2025 13:42:34 04/18/20 25 04/18/2025 CBC MCHC 31.7 g/dL 32.0-3 6.0 low Not Available [facility] [address] [facility] 1, [place], [address], 04/18/2025 13:42:34 04/18/20 25 04/18/2025 CBC RDW 14.4 % 11.5-1 4.5 Not Available [facility] [address] [facility] 1, [place], [address], 04/18/2025 13:42:34 04/18/20 25 04/18/2025 CBC plt 309.9 x10 140.0- 451.0 Not Available [facility] [address] [facility] 1, [place], [address], 04/18/2025 13:42:34 04/18/20 25 04/18/2025 CBC lymphocytes % 18.0 % 20.0-5 0.0 low Not Available [facility] [address] [facility] 1, [place], [address], 04/18/2025 13:42:34 04/18/20 25 04/18/2025 CBC granulcytes % 72.1 % 30.0-7 0.0 high Not Available [facility] [address] [facility] [address], [place], [address], 04/18/2025 13:42:34 04/18/20 25 04/18/2025 CBC monocytes % 7.0 % 2.0-16 .0 Not Available [facility] [address] [address], [place], [address], 04/18/2025 13:42:34 04/18/20 25 04/18/2025 CBC granulcytes# 7.9 x10 Not Marisela ilable [facility] [address] [address], [place], [address], 04/18/2025 13:42:34 04/18/20 25 04/18/2025 CBC lymphocytes # 2.0 x10 Not Available [facility] [address] [address], [place], [address], 04/18/2025 13:42:34 04/18/20 25 04/18/2025 CBC monocytes # 0.8 x10 Not Avai lable [facility] [address] [address], [place], [address], 04/18/2025 13:42:34 04/18/20 25 04/18/2025 CMP (FEMA LE) glucose 167.0 mg/dL 60.0-9 9.0 high Not Available [facility] [address] [facility], [place], [address], 04/18/2025 14:01:18 04/18/20 25 04/18/2025 CMP (FEMA LE) BUN (blood urea nitrogen) 59.0 mg/dL 10.0-2 6.0 high Not Available [facility] [address] [facility] 1, [place], [address], 04/18/2025 14:01:18 04/18/20 25 04/18/2025 CMP (FEMA LE) creatinine (serum) 2.4 mg/dL 0.4-1. 5 high Not Available [facility] [address] [facility] 1, [place], [address], 04/18/2025 14:01:18 04/18/20 25 04/18/2025 CMP (FEMA LE) BUN/creatini ne ratio 24.58 ratio Not Available [facility] [facility], [place], [address], 04/18/2025 14:01:18 04/18/20 25 04/18/2025 CMP (FEMA LE) eGFR calculated 20.9 Not Available [facility] [address] [facility] 1, [place], [address], 04/18/2025 14:01:18 04/18/20 25 04/18/2025 CMP (FEMA LE) total protein 6.2 g/dL 6.0-8. 5 Not Available [facility] [address] [facility] 1, [place], [address], 04/18/2025 14:01:18 04/18/20 25 04/18/2025 CMP (FEMA LE) total bilirubin 0.3 mg/dL 0.2-1. 3 Not Available [facility] [address] [facility] 1, [place], [address], 04/18/2025 14:01:18 04/18/20 25 04/18/2025 CMP (FEMA LE) albumin 3.6 g/dL 3.5-5. 5 Not Available [facility] [address] [facility] 1, [place], [address], 04/18/2025 14:01:18 04/18/2004/18/2025 CMP (FEMA LE) globulin 2.6 calc Not Available [facility] [address] [facility] 1, [place], [address], 04/18/2025 14:01:18 04/18/20 25 04/18/2025 CMP (FEMA LE) AST (SGOT) 31.0 U/L 0.0-46 .0 Not Available [facility] [address] [facility] 1, [place], [address], 04/18/2025 14:01:18 04/18/20 25 04/18/2025 CMP (FEMA LE) altv (SGPT) 27.0 U/L 13.0-6 9.0 normal Not Available [facility] [address] [facility] 1, [place], [address], 04/18/2025 14:01:18 04/18/20 25 04/18/2025 CMP (FEMA LE) A/G ratio 1.4 ratio Not Available [facility] [address] [facility] 1, [place], [address], 04/18/2025 14:01:18 04/18/20 25 04/18/2025 CMP (FEMA LE) ALP phos 89.0 U/L 30.0-1 40.0 normal Not Available [facility] [address] [facility] 1, [place], [address], 04/18/2025 14:01:18 04/18/2004/18/2025 CMP (FEMA LE) calcium 8.4 mg/dL 8.4-10 .5 Not Available [facility] [address] [facility] 1, [place], [address], 04/18/2025 14:01:18 04/18/2004/18/2025 CMP (FEMA LE) sodium 142.0 mmol/ L 136.0- 145.0 Not Available [facility] [address] [facility] 1, [place], [address], 04/18/2025 14:01:18 04/18/2004/18/2025 CMP (FEMA LE) potassium 4.1 mmol/ L 3.5-5. 1 Not Available [facility] [address] [facility] 1, [place], [address], 04/18/2025 14:01:18 04/18/2004/18/2025 CMP (FEMA LE) chloride 107.0 mmol/ L 98.0-1 10.0 normal Not Available [facility] [address] [facility] 1, [place], [address], 04/18/2025 14:01:18 04/18/2004/18/2025 CMP (FEMA LE) C02 28.0 mmol/ L 22.0-3 1.0 Not Available [facility] [address] [facility] 1, [place], [address], 04/18/2025 14:01:18 04/18/2004/18/2025 CMP (FEMA LE) anion gap 7.0 calc Not Available [facility] [address] [facility] 1, [place], [address], 04/18/2025 14:01:18 04/18/20 25 04/18/2025 CMP (FEMA LE) osmolality 312.0 calc Not Available [facility] [address] [facility] 1, [place], [address], 04/18/2025 14:01:18 04/18/20 25 04/19/2025 IRON, TIBC AND DONOVAN TIN PANEL iron, total 88 mcg/d L 45-160 normal Not Available [address], [address], 04/19/2025 10:46:48 04/18/20 25 04/19/2025 IRON, TIBC AND DONOVAN TIN PANEL iron binding capacity 388 mcg/d L_(ca lc) 250-45 0 normal Not Available [address], [address], 04/19/2025 10:46:48 04/18/20 25 04/19/2025 IRON, TIBC AND DONOVAN TIN PANEL % saturation 23 %_(ca lc) 16-45 normal Not Available [address], [address], 04/19/2025 10:46:48 04/18/20 25 04/19/2025 IRON, TIBC AND DONOVAN TIN PANEL ferritin 21 NG/mL 16-288 normal Not Available [address], [address], 04/19/2025 10:46:48 04/18/20 25 04/19/2025 MAGNE SIUM magnesium 1.4 mg/dL 1.5-2. 5 low Not Available [address], [address], 04/19/2025 10:46:50 04/18/20 25 04/19/2025 C-CHANDLER CTIVE PROTE IN C-reactive protein <3.0 mg/L <8.0 normal Not Available [facility]. [place] [address] [place], [address], 04/19/2025 10:46:51 04/18/20 25 04/19/2025 VITAM IN D,25- OH,TO ELIZABETH,I A vitamin D,25-oh,tota l,ia 16 NG/mL 30-100 low Vitam in D Statu s 25-OH Vitam in D: Defic iency : <20 ng/mL Insuf ficie ncy: 20 - 29 ng/mL Optim al: > or = 30 ng/mL For 25-OH Vitam in D testi ng on patie nts on D2-fernandes pplem entat ion and patie nts for whom quant itati on of D2 and D3 fract ions is requi red, the [employer] Assur eD(TM ) 25-OH VIT D, (D2,D 3), LC/MS /MS is recom boaz d: order code 62909 (hannah ents >2yrs ). See Note 1 Note 1 For addit ional infor liberty aguillon e refer to http: //[facility] rosalva Hanley stDia gnost ics.c om/fa q/FAQ 199 (This link is being provi ded for infor manfred dwyer/ pippa hernandez purpo ses only. ) Not Available [facility] [address] [address] [place], [address], 04/19/2025 10:46:52 04/18/20 25 04/18/2025 ESR (eryt hrocy te sedim entat ion rate) , blood ESR 44 Not Available [facility] ([facility]) [address] [place], [address], 04/18/2025 12:48:32 04/27/20 25 04/28/2025 ALBUM IN, RANDO M URINE W/CRE ATINI NE creatinine, random urine 62 mg/dL 20-275 normal Not Available [facility] [address] [address] [place], [address], 04/28/2025 10:26:34 04/27/20 25 04/28/2025 ALBUM IN, RANDO M URINE W/CRE ATINI NE albumin, urine 255.4 mg/dL see note: normal Refer ence Range : Refer ence Range Not estab lishe d Verif ied by repea t anatoly sis. Not Available [facility] [address] [place], [address], 04/28/2025 10:26:34 04/27/20 25 04/28/2025 ALBUM IN, RANDO M URINE W/CRE ATINI NE albumin/crea tinine ratio, random urine 4119 mg/g_ creat <30 high The ADA defin es abnor malit ies in album in excre tion as follo ws: Album inuri a Categ ory Resul t (mg/g creat inine ) Gladis l to Mildl y incre ased <30 Moder ately incre ased 30-29 9 Sever wyatt incre ased > OR = 300 The ADA recom mends that at least two of three speci mens colle cted withi n a 3-6 month perio d be abnor mal befor e consi caitlyn g a patie nt to be withi n a diagn ostic categ ory. Not Available [facility] [address] [place], [address], 04/28/2025 10:26:34 Result Notes None recorded. Problems Name Problem SNOMED Code Status Onset Date Resolution Date Notes Provider Name and Address Organization Details Recorded Time For resuscit ation 758571585 Active 2020 FULL CODE STATUS; advanced directiv es: full code does not want life prolongi ng or heroic measures if no meaningf ul chance of recovery 1st POA is her son Kiko Byers on [phone] wishes him to be the primary decision maker unless unable 2ND poa her daughter Roxanna Koenig ; Date: 04/08/20 21; 12/23/19 8:36AM by Anabella Parker LPN, Office Visit; Promoted ; acuity set as *; Asha Maldonado [facility] [place] - [facility] 03/31/202 5 23:07:55 Chronic obstruct michael pulmonar y disease 16404233 Completed 202106/12/2022 Chronic Obstruct michael Lung Disease - Status is Inactive ; 06/12/20 10:24AM by Papo Casiano PA-C, Annotati on/Adden dum; Promoted ; acuity set as *; Not Available [facility] 3 03:13:13 Depressi ve disorder 95065006 Completed 202106/12/2022 Depressi on - Status is Inactive ; 06/12/20 10:28AM by Papo Casiano PA-C, Annotati on/Adden dum; Promoted ; acuity set as *; Not Available [facility] 3 03:13:13 Bipolar disorder 91414680 Completed 202106/12/2022 Bipolar Disorder - Status is Inactive ; 06/12/20 10:27AM by Papo Casiano PA-C, Annotati on/Adden dum; Promoted ; acuity set as *; Asha montgomery [facility] 5 23:07:54 Clinical finding Completed 202106/12/2022 obesity - Status is Inactive ; 06/12/20 10:28AM by Papo Casiano PA-C, Annotati on/Adden dum; Promoted ; acuity set as *; Not Available [facility] 3 03:13:15 Cerebral infarcti on 329730479 Active 2022 POSTERIO R CIRCULAT ION STROKE; Recorded 12/23/19 8:36AM by Anabella Parker LPN, Office Visit; Promoted ; acuity set as *; Asha montgomery [facility] 5 23:07:55 Insomnia 451499475 Active 2022 INSOMNIA ; Recorded 12/23/19 8:36AM by Anabella Parker LPN, Office Visit; Promoted ; acuity set as *; Asha montgomery [facility] 5 23:07:55 Anxiety disorder 513452430 Active 2022 Anxiety Disorder ; 12/23/19 8:36AM by Anabella Parker LPN, Office Visit; Promoted ; acuity set as *; Asha montgomery, [facility] 5 23:07:55 Chronic post-tra umatic stress disorder 373267501 Active 2022 PTSD; 12/23/19 8:36AM by Anabella Parker LPN, Office Visit; Promoted ; acuity set as *; Asha montgomery, [facility] 5 23:07:55 Mixed bipolar affectiv e disorder 548564948 Active 2022 BIPOLAR DISORDER , MIXED; Recorded 12/23/19 8:36AM by Anabella Parker LPN, Office Visit; Promoted ; acuity set as *; Asha montgomery, [facility] 5 23:07:55 Emphysem atous bleb of lung 10883225 Active 2022 COPD (CHRONIC OBSTRUCT MICHAEL PULMONAR Y DISEASE) WITH EMPHYSEM A; Recorded 12/23/19 8:36AM by Anabella Parker LPN, Office Visit; Promoted ; acuity set as *; Asha montgomery, [facility] 5 23:07:55 Myocardi al infarcti on 79524972 Active 2022 Myocardi al Infarcti on1994; 12/23/19 8:36AM by Anabella Parker LPN, Office Visit; Promoted ; acuity set as *; Asha Hutchinsonoch [place], [facility] 5 23:07:55 Hyperten sive disorder 41059648 Active 2022 Hyperten rinku - Status is Inactive ; 06/12/20 10:28AM by Papo Casiano PA-C, Annotati on/Adden dum; Promoted ; acuity set as *; ; Start Date : 06/12/20 HYPER TENSION; Recorded 12/23/19 8:36AM by Anabella Parker LPN, Office Visit; Promoted ; acuity set as *; BENIGN ESSENTIA L HTN; Recorded 06/12/20 10:27AM by Papo Casiano PA-C, Annotati on/Adden dum; Promoted ; acuity set as *; ; Start Date : 06/12/20 ESSEN TIAL HYPERTEN RINKU; Recorded 06/12/20 10:27AM by Papo Casiano PA-C, Annotati on/Adden dum; Promoted ; acuity set as *; ; Start Date : 06/12/20 Asha montgomery [facility] 5 23:07:55 Nicotine dependen ce 83283188 Active 2022 TOBACCO USE DISORDER ; Recorded 12/23/19 8:36AM by Anabella Parker LPN, Office Visit; Promoted ; acuity set as *; Asha montgomery, [facility] 5 23:07:55 Obsessiv e compulsi ve personal ity disorder 6633908 Active 2022 Obsessiv e Compulsi ve Personal ity Disorder ; 12/23/19 8:36AM by Anabella Parker LPN, Office Visit; Promoted ; acuity set as *; Asha montgomery [facility], Kaylen.Tiki 5 23:07:55 Divertic ulosis NOS Active 2022 divertic ulosis; 12/23/19 8:36AM by Anabella Parker LPN, Office Visit; Promoted ; acuity set as *; Asha montgomery [facility], Kaylen.LKimmieCKimmie 5 23:07:55 Essentia l tremor 637931174 Active 2022 benign essentia l tremor; 12/23/19 23 8:36AM by Anabella Parker LPN, Office Visit; Promoted ; acuity set as *; Asha montgomery [facility] 5 23:07:55 Type 2 diabetes mellitus 61525485 Active 2022 ANABELLA PARKER null, [facility] 3 14:35:25 Aneurysm of thoracic aorta 575942671 Active 2022 Asha Maldonado null, [facility] 5 23:07:55 Chronic obstruct michael pulmonar y disease 48202946 Active 2022 ANABELLA PARKER null, [facility] 3 14:35:46 Hyperlip idemia 64894179 Active 2022 ANABELLA PARKER null, [facility] 3 14:35:59 Essentia l hyperten rinku 52203860 Active 2022 ANABELLA PARKER null, [facility] 3 14:36:09 Bipolar disorder 69582424 Active 2022 Asha Maldonado null, [facility] 5 23:07:54 Chronic kidney disease stage 3B 578410334 Active 2023 Asha Maldonado null, [facility] 5 23:07:55 Frailty 898314546 Active 2023 Asha Maldonado null, [facility] 5 23:07:55 Fatigue 98806902 Active 2023 Asha Maldonado null, [facility] 5 23:07:55 Pulmonar y emphysem a 42538095 Active 2023 Asha Maldonado null, [facility] 5 23:07:55 Vertigo 293523001 Completed 202301/16/2025 Asha Maldonado [facility], [facility] 5 23:08:28 Occult blood detected in feces 67739968 Completed 202301/16/2025 Asha Maldonado [facility], [facility] 5 23:08:28 Dehydrat ion 93829055 Completed 202301/16/2025 Asha Hutchinsonoch [facility], [facility] 5 23:08:28 Hypokale aaliyah 30186654 Active 2023 Asha Hutchinsonoch [facility] 5 23:07:55 Low blood pressure 59717007 Completed 202301/16/2025 Asha Hutchinsonoch [facility] 5 23:08:28 Serum proteins below referenc e range 652708510 Active 2023 Asha Hutchinsonoch [facility] 5 23:07:55 Hypomagn esemia 278476616 Active 2023 Asha Hutchinsonoch [facility] 5 23:07:55 Gastroes ophageal reflux disease without esophagi tis 944870670 Active 2023 Asha Hutchinsonoch [facility], [facility] 5 23:07:55 Chronic gastriti s 0014122 Active 2023 Asha Hutchinsonoch [facility], [facility] 5 23:07:55 Intermit tent effusion of joint 169795437 Active 2023 Asha Joel [facility], [facility] 5 23:07:55 Family history of Autoimmu ne disease 934112215 Completed 202301/16/2025 Asha Maldonado [facility] 5 23:08:28 Seronega tive rheumato id mayela s 908704052 Active 2023 Asha Maldonado [facility]ie 5 23:07:55 Candidia sis of skin 68009619 Completed 202301/16/2025 Asha Maldonado [facility] 5 23:08:28 Candidia sis of mouth 70784090 Completed 202301/16/2025 Asha Maldonado [facility] 5 23:08:28 Low back pain 290856999 Active 2024 Asha Maldonado [facility] 5 23:07:55 Problem of aging 65943785 Active 2024 Asha Maldonado [facility] 5 23:07:55 Subclavi an steal syndrome 47920660 Active 2024 Asha Maldonado [facility] 5 23:07:55 Pregnanc y 70376933 Completed 202411/23/2024 Jeff Mathew [facility] 5 07:51:47 Proteinu laura 24770398 Active 2024 ANABELLA PARKER [facility] 5 10:44:37 Problem Notes None recorded. Procedures Surgical History Date Name Laterality Status Provider Name and Address Organization Details Recorded Time 2024 carotid-subclavian artery bypass graft with vein completed [facility] 5 08:52:27 2023 esophagogastroduodenoscopy completed [facility] 4 08:16:57 2023 colonoscopy completed [facility]ie 5 10:12:12 cholecystectomy completed [facility] 5 23:08:53 ligation of fallopian tube completed [facility] 5 23:09:11 complete repair of r otator cuff completed [facility] 3 14:29:55 Imaging Results None recorded. Procedure Notes None recorded. Medical Equipment None Reported. Allergies Allergen ID Allergen Name Allergen Category Reaction Reaction Severity Criticality Documentation Date Start Date Code Code System Note Provider Name and Address Organization Details Recorded Time 2559 codeine medicatio n Not available Not available Not available 02/20/2023 2670 RxNorm NICKY MATOS [facility] 3 15:32:46 2560 Effexor medicatio n Not available Not available Not available 02/20/2023 06364 2 RxNorm LORENANDRIY MATOS [facility] 3 15:33:00 2561 Lamictal medicatio n rash Not available Not available 02/20/2023 47055 2 RxNorm LORENANDRIY MATOS [facility] 3 15:33:14 2562 Celebrex medicatio n vomiting Not available Not available 02/20/2023 62705 7 RxNorm Tasneem Serna [facility] 4 10:14:57 2563 Abilify medicatio n Not available Not available Not available 02/20/2023 92106 3 RxNorm LORENATHA CARLO [place], [facility] 3 15:33:48 2564 Celexa medicatio n Not available Not available Not available 02/20/2023 05254 8 RxNorm NICKY mont[place], [facility] 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 4 14:02:54 40384 metformin medicatio n diarrhea vomiting Not available Not available Not available 06/22/2024 6809 RxNorm ANABELLA montgomery, [facility] 4 08:34:56 27950 methotrex ate medicatio n lemos-j ohnson syndrome Not available [facility] 10/05/2024 6851 RxNorm possi ble dx not compl etely clear if this is the final diagn osis but shoul d avoid compl etely . Edvin Casiano MD [address] [place] [address], [phone] , [facility] 4 13:20:43 Medications Name Sig Start Date [...] release TAKE 1 TABLET BY MOUTH DAILY 04/14 completed Not Available Not Available Not Available [...] 23 11:33AM by Anabella Parker LPN (Authori zed through Edvin Casiano MD), Annotati on/Adden dum; Refill Quantity : 100; Tablet; Not Available Not Available Not Available metformin QD 08/07 completed 436; Recorded 05/29/20 22 3:18PM by Caro Craven LPN (Authori zed through Edvin Casiano MD), Office Visit; Refill Quantity : [...] (bulk) QD 08/07 completed 436; Recorded 08/06/20 1:48PM by Asha Gomez RN (Authori zed through Edvin Casiano MD), Annotati on/Adden dum; Refill Quantity [...] Available Droplet Pen Needle 32 gauge x 5/32 USE DIRECTED FIVE TIMES DAILY active Not [...] Available No t Available FreeStyle Ozzie 3 [place] active Not Available Not Available Not Available Vitals Date Recorded Body height Body mass index (BMI) Body weight Body temperature Heart rate Oxygen saturation Oxygen saturation in Arterial blood by Pulse oximetry Systolic And Diastolic Provider Name and Address Organization Details Last Updated DateTime 5 162.56 cm 26.1 kg/m2 69038.0 4 g 98 [degF] 89 /min 99 % 99 % 138/84 mm[Hg] [facility] 5 14:37:42 Date Recorded Body height Body mass index (BMI) Body weight Body temperature Heart rate Oxygen saturation Oxygen saturation in Arterial blood by Pulse oximetry Systolic And Diastolic Provider Name and Address Organization Details Last Updated DateTime 5 162.56 cm 26.1 kg/m2 05947.0 4 g 97.4 [degF] 97 /min 95 % 95 % 142/84 mm[Hg] [facility] 5 13:18:17 Date Recorded Body height Body mass index (BMI) Body weight Body temperature Oxygen saturation Oxygen saturation in Arterial blood by Pulse oximetry Heart rate Systolic And Diastolic Provider Name and Address Organization Details Last Updated DateTime 5 162.56 cm 27.1 kg/m2 22922.5 9 g 97.7 [degF] 91 % 91 % 94 /min 126/70 mm[Hg] Asha Maldonado [facility] 5 12:34:50 Date Recorded Body height Body mass index (BMI) Body weight Body temperature Oxygen saturation Oxygen saturation in Arterial blood by Pulse oximetry Heart rate Respiratory rate Systolic And Diastolic Provider Name and Address Organization Details Last Updated DateTime 5 162.56 cm 26.6 kg/m2 61675.8 2 g 96.8 [degF] 93 % 93 % 74 /min 20 /min 124/76 mm[Hg] MELE SANDERS [facility] 5 12:00:11 Date Recorded Body height Body mass index (BMI) Body weight Body temperature Oxygen saturation Oxygen saturation in Arterial blood by Pulse oximetry Heart rate Respiratory rate Systolic And Diastolic Provider Name and Address Organization Details Last Updated DateTime 5 162.56 cm 28.3 kg/m2 05152.7 4 g 96.9 [degF] 93 % 93 % 76 /min 20 /min 126/80 mm[Hg] MELE SANDERS [facility] 5 13:07:03 Social History Question Answer Notes LastModified by [employer] Details LastModified Time Tobacco Smoking Status Current Every Day Smoker [facility] 03/26/2023 14:37:34 What Was The Date Of Your Most Recent Tobacco Screening? 04/18/2025 [email or web address] Information not available 04/18/2025 What Is Your Current Pack Years? 30ormorepacky ears [email or web address] Information not available 03/26/2023 How Much Tobacco Do You Smoke? 1 PPD [email or web address] Information not available 03/26/2023 Sex: Unknown Functional Status Question Answer Note LastModified by [employer] Details LastModified Time Do you use any illicit or recreational drugs? No [email or web address] Information not available 03/26/2023 Do you or have you ever used any other forms of tobacco or nicotine? No [email or web address] Information not available 09/24/2023 What is your level of alcohol consumption? None Information not available 03/26/2023 Mental Status None recorded. Family History Relationship Description Onset Age of this Age Resolved Age Notes LastModified by Organization Details LastModified Time Daughter Diabetes mellitus [email or web address] Not available 09/24 14:28:06 Daughter Microscopic polyangiitis [email or web address] Not available 16:11:53 Sister Malignant tumor of oral cavity [email or web address] Not available 04/2023 14:28:31 Father Essential tremor [email or web address] Not available 09/24 14:28:43 Medical History No medical history recorded. Gynecological HistoryNo gynecological history recorded. Obstetrics History GPAL:G 0 P 0 0 0 0 Immunizations Vaccine Type Date Status Note Provider Nam e and Address Organization Details Recorded Time zoster recombinant 3 completed Asha Maldonado [facility] 04/14/2023 15:57:56 zoster recombinant 3 completed Asha Maldonado [facility] 08/07/2023 15:06:28 COVID-19, mRNA, LNP-S, PF, 100 mcg/0.5mL dose or 50 mcg/0.25mL dose 1 completed ANABELLA PARKER [facility] 03/26/2023 14:25:50 COVID-19, mRNA, LNP-S, PF, 30 mcg/0.3 mL dose 1 completed ANABELLA PARKER [facility] 03/26/2023 14:25:50 COVID-19, mRNA, LNP-S, PF, 30 mcg/0.3 mL dose 1 completed ANABELLA PARKER [facility] 03/26/2023 14:25:50 Influenza, split virus, trivalent, preservative 3 completed Not Available [facility] 11/05/2023 14:11:50 COVID-19, mRNA, LNP-S, PF, 30 mcg/0.3 mL dose 1 completed Not Available [facility] 11/05/2023 14:11:50 Tdap 7 completed Not Available [facility] 11/05/2023 14:11:50 pneumococcal polysaccharide PPV23 0 completed Not Available [facility] 11/05/2023 14:11:50 Influenza, split virus, trivalent, preservative 2 completed Not Available [facility] 11/05/2023 14:11:50 Influenza, split virus, trivalent, preservative 1 completed Not Available [facility] 11/05/2023 14:11:50 Influenza, split virus, trivalent, preservative 1 completed Not Available [facility] 11/05/2023 14:11:50 Influenza, split virus, trivalent, preservative 9 completed Not Available [facility] 11/05/2023 14:11:50 pneumococcal polysaccharide PPV23 1 completed Not Available [facility] 11/05/2023 14:11:50 Pneumococcal conjugate PCV 13 7 completed Not Available [facility] 11/05/2023 14:11:50 Influenza, split virus, trivalent, preservative 7 completed Not Available [facility] 11/05/2023 14:11:50 Past Encounters Encounter ID Performer Location Encounter Start Date Encounter Closed Date Diagnosis/Indication Diagnosis SNOMED-CT Code Diagnosis ICD10 Code Diagnosis Note [id number] PAPO CASIANO PA-C [facility] ([facility]) [address] [place] [address] [id number] 5 02/20/2023 15:12:52 02/20/2023 19:17:11 Acute exacerbation of chronic obstructive pulmonary disease 809442611 J44.1 ok to use her duonebs. 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 Will start levofloxac in daily for 7 days today. Encouraged patient to complete 4 breathing treatments at home daily for the next 4-5 days, and then decrease to 2 per day once feeling better. Discussed with patient that she should continue 2 breathing treatments daily until seen by PCP in 2 weeks. Patient verbalized understand ing. If worsening SOB or severe chest pain occurs, recommend going to ED. Patient agrees to plan of care. [id number] Edvin Casiano MD [facility] ([facility]) [address] [place] [address] [id number] 5 03/26/2023 14:14:54 03/26/2023 18:03:33 Chronic obstructive pulmonary disease 76096369 J44.9 we discussed need to getting off the cigarettes . she understand s. she is not ready. Type 2 remberto betes mellitus 43316541 E11.59 Aneurysm o f thoracic aorta 794725384 I71.20 Hyperlipidemia 68515648 E78.5 Nicotine dependence 5629 4008 F17.200 Essential hypertension 46229506 I10 Bipolar disorder 7267436 4 F31.9 History of fall 20190513 9 Z91.81 Fatigue 86332366 R53.83 Frailty 577775919 R54 Chronic ki dney disease stage 3B 621668171 N18.32 Screening for osteoporosis 353194620 Z13.820 Screening mammography 24 771069 Z12.31 [id number] Edvin Casiano MD [facility] ([facility]) [address] [place] [address] [id number] 5 04/14/2023 14:48:07 04/14/2023 16:46:49 Seborrheic keratosis 935398316 L82.1 Intolerant of cold 02234 000 R68.89 mammogram and bmd tomorrow as an aside Pain of ri ght shoulder joint 3653233885 9693690 M25.944 [id number] Edvin Casiano MD [facility] ([facility]) [address] [place] [address] [id number] 5 08/07/2023 13:25:23 08/07/2023 14:13:55 Pain in left lower limb 432116832 M79.769 [id number] Edvin Casiano MD [facility] ([facility]) [address] [place] [address] [id number] 5 09/17/2023 11:16:55 09/17/2023 16:39:02 Essential hypertension 68000408 I10 Type 2 remberto betes mellitus 04246749 E11.59 [id number] Edvin Casiano MD [facility] ([facility]) [address] [place] [address] [id number] 5 09/24/2023 14:09:35 09/24/2023 15:09:14 Iron deficiency anemia 20218735 D50.9 [id number] Edvin Casiano MD [facility] ([facility]) [address] [place] [address] [id number] 5 11/05/2023 14:11:19 11/05/2023 14:52:42 Chronic obstructive pulmonary disease 75745905 J44.9 we discussed need to getting off the cigarettes . she understand s. she is not ready. Type 2 remberto betes mellitus 27779807 E11.59 Aneurysm o f thoracic aorta 430207203 I71.20 Hyperlipidemia 22481386 E78.5 Nicotine dependence 5629 4008 F17.200 Essential hypertension 30416461 I10 Bipolar disorder 1457744 4 F31.9 History of fall 07983315 9 Z91.81 Fatigue 39108942 R53.83 Frailty 744246593 R54 Chronic ki dney disease stage 3B 859475113 N18.32 Iron defic iency anemia 44703312 D50.9 Pulmonary emphysema 8743 3001 J43.9 [id number] Edvin Casiano MD [facility] ([facility]) [address] [place] [address] [id number] 5 12/16/2023 09:09:16 12/17/2023 10:25:41 Iron deficiency anemia 22647121 D50.9 [id number] Edvin Casiano MD [facility] ([facility]) [address] [place] [address] [id number] 5 12/23/2023 13:59:47 12/23/2023 16:13:39 Iron deficiency anemia 86449251 D50.9 will refer to consider upper and lower endoscopy due to iron deficiency anemia, iron storage not normalizin g despite adequate time and therapy, weight loss, and loss of appetite. Rib pain 088778661 R07.8 1 Pain in th oracic spine 166678603 M54.6 [id number] Edvin Casiano MD [facility] ([facility]) [address] [place], [place] [address] 01/25/2024 08:56:27 01/25/2024 09:38:53 Dysuria 81464339 R30.0 if signs of kidney infection, please return right away. we discussed these in detailretu rn right away if worsening in any waypush fluids. she has held her bronchodil ator thinking she needed to with the azo she took. Chronic ob structive pulmonary disease 40621165 J44.9 we discussed need to getting off the cigarettes . she understand s. she is not ready. [id number] Edvin Casiano MD [facility] ([facility]) [address] [place] [address] 5 03/08/2024 13:01:20 03/08/2024 16:46:07 Mixed bipolar affective disorder 515439631 F31.60 Acute situ ational disturbance 843561255 F43.20 has retinal edema, possible keratitis, increased pressure. started on prednisone drops continued on her other drops. [id number] Edvin Casiano MD [facility] ([facility]) [address] [place] [address] 5 03/17/2024 11:57:34 03/17/2024 12:50:50 Chronic obstructive pulmonary disease 96387798 J44.9 we discussed need to getting off the cigarettes . she understand s. she is not ready. Severe chr onic obstructive pulmonary disease 330797109 J44.9 [id number] Edvin Casiano MD [facility] ([facility]) [address] [place] [address] [id number] 5 04/11/2024 13:53:14 04/11/2024 15:09:51 Severe chronic obstructive pulmonary disease 899743092 J44.9 [id number] Edvin Casiano MD [facility] ([facility]) [address] [place], [place] [phone] 04/25/2024 14:59:01 05/04/2024 14:07:16 Vertigo 731013657 R42 [id number] Edvin Casiano MD [facility] ([facility]) [address] [place] [address] [id number] 5 06/06/2024 13:28:41 06/06/2024 15:00:43 Type 2 diabetes mellitus 43996380 E11.59 Hyperlipidemia 34654475 E78.5 Essential hypertension 85449451 I10 Diarrhea 04394533 R19.7 [id number] Edvin Casiano MD [facility] ([facility]) [address] [place] [address] [id number] 5 06/22/2024 08:28:24 06/22/2024 09:17:07 Screening mammography 50137466 Z12.31 Heavy tobacco smoker 737 4162635 65463 Z72.0 Abnormal weight loss 267 609799 R63.4 Frequent defecation 3003 46365 R19.8 hold magnesium Iron defic iency anemia 45863921 D50.9 will refer to consider upper and lower endoscopy due to iron deficiency anemia, iron storage not normalizin g despite adequate time and therapy, weight loss, and loss of appetite. hold celebrex Chronic low back pain 27 7358969 M54.50 [id number] Edvin Casiano MD [facility] ([facility]) [address] [place] [address] [phone] 5 08/04/2024 08:31:31 08/04/2024 09:25:23 Screening mammography 42030967 Z12.31 Heavy tobacco smoker 135 9077098 35826 Z72.0 Abnormal weight loss 267 441237 R63.4 Frequent defecation 3003 71008 R19.8 hold magnesium Iron defic iency anemia 02193081 D50.9 hold celebrex. we discussed the risks of celebrex quite frankly including . Chronic low back pain 27 4383612 M54.50 [id number] Edvin Casiano MD [facility] ([facility]) [address] [place] [address] [id number] 5 08/09/2024 09:08:50 08/09/2024 13:08:21 Dehydration 60432154 E86.0 Hypomagnesemia 979679219 E83.42 Hypokalemia 49524458 E87 .6 Serum prot eins below reference range 548543440 R77.8 Low blood pressure 36023 003 I95.9 Gastroesop hageal reflux disease without esophagitis 564772222 K21.9 Essential hypertension 60988140 I10 Chronic gastritis 958463 9 K29.50 Intermitte nt effusion of joint 328285674 M12.40 M25.432 M12.431 migratory arthropath y knee shoulder bilaterall y wristthey told me years and years ago i had gout. [id number] Deep Philippe DO [facility] ([facility]) [address] [place] [address] [id number] 5 08/11/2024 08:44:24 08/11/2024 17:22:07 Occult blood detected in feces 63960320 R19.5 pt has + FOBT with iron def. anemia recently, on nsaids. Nsaids stopped due to this, but her arthric pain much worse. We need to evaluate to ensure she can get back on nsaids if possible. She will get eval and clearance from cardiology . We discussed the patients' current symptoms as well as treatment options. We discussed diagnostic colonoscop y and EGD in detail using handouts and illustrati ons. The patient is agreeable to proceeding with Colonoscop y and EGD at [facility]. We discussed pre op process, risks, benefits, expectatio ns, aftercare, and other aspects of the procedure in great detail. Handouts were given and discussed. The patient provided Verbal understand ing and verbally expressed desire to proceed. We will schedule colonoscop y and EGD at [facility]. [id number] ODALIS GARRIDO [facility] ([facility]) [address] [place] [address] [id number] 5 08/12/2024 08:27:17 08/12/2024 14:26:09 Pain of joint of hand 933886599 M25.549 IM beta administer ed today. Discussed f/u with PCP next week. [id number] ODALIS GARRIDO [facility] ([facility]) [address] [place] [address] [id number] 5 08/15/2024 10:11:27 08/15/2024 10:29:57 [id number] Edvin Casiano MD [facility]) [address] [place] [address] [id number] 5 08/16/2024 08:53:13 08/16/2024 09:58:21 Intermittent effusion of joint 617029247 M12.40 M25.432 M12.431 migratory arthropath y knee shoulder bilaterall y wristthey told me years and years ago i had gout. Muscle weakness 21742895 M62.81 Peripheral arterial occlusive disease 385861827 I73.9 left arm:radial artery does not fill the hand on tinel's test blushing is normal to slightly diminished with the ulnar artery but the radial is quite delayed. the brachial artery bp is 70-75 systolic.i am unable to check the right arm due to her intractabl e pain with any right extremity movement. pedal pulses are diminished but symmetric. 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 her weight is up 5 lbs. Muscle weakness 14711270 M62.81 greatly improved on prednisone . she is down to 30 mg. Peripheral arterial occlusive disease 963060804 I73.9 previous visitleft arm:radial artery does not fill the hand on tinel's test [place] is normal to slightly diminished with the ulnar artery but the radial is quite delayed. the brachial artery bp is 70-75 systolic.i am unable to check the right arm due to her intractabl e pain with any right extremity movement. pedal pulses are diminished but symmetric. today 08/23/2024h er radial and ulnar fill are now normal. radial pulse is 2+ and equal.left arm bp today is much improved 100/70 today still a 50 point differenti al but not critical like it was potentiall y last time. Subclavian steal syndrome 50163449 G45.8 Generalize d anxiety disorder 88326594 F41.1 no gerald but hx of bipolar disorder. need to re-establi sh mood stabilize continue lorazepam prn but only as directed. avoid opiod whenever you possibly can. [id number] Edvin Casiano MD [facility] ([facility]) [address] [place] [address] [id number] 5 08/30/2024 10:48:37 08/30/2024 14:00:36 Essential hypertension 82045752 I10 Seronegati ve rheumatoid arthritis 913796471 M06.00 prednisone responsive sx's present more than 6 weeksana neg. rheumatoid antibody panel neg.crp over 70 esr 46decrease d but stayed moderately high on repeat at the er after steroids. my mouth is so dry i cannot drink enough. i think this is only related to her seroquel being started rather than being present before.her anxiety is better controlled with the low dose seroquel. no maniaeyes are not dry. she is swallowing well.colon oscopy pending. i have asked for random biopsies though calprotect in was neg.her joint effusions started during a severe diarrheal illness that did resolve. her daughter has an autoimmune disease initially thought to be lupus. they will call her and get her accurate dx for me. Family his tory of Autoimmune disease 615625818 Z83.2 [id number] Edvin Casiano MD [facility] ([facility]) [address] [place] [address] [id number] 5 09/06/2024 10:44:16 09/07/2024 12:50:46 Essential hypertension 04037459 I10 Seronegati ve rheumatoid arthritis 846982484 M06.00 [id number] Edvin Casiano MD [facility] ([facility]) [address] [place] [address] [id number] 5 10/05/2024 12:13:08 10/05/2024 17:42:33 Uncontrolled type 2 diabetes mellitus 739342092 E11.65 Acquired thrombocytopenia 96220060 D69.6 Thrombocytosis 9818810 D 75.839 Leukopenia 43403080 D72. 819 Leukocytosis 549853645 D 72.829 Acute kidney injury 1466 9001 N17.9 [address] tr eated type 2 diabetes mellitus 704715956 Z79.4 Essential hypertension 10400227 I10 Generalize d anxiety disorder 84185971 F41.1 no gerald but hx of bipolar disorder. need to re-establi sh mood stabilize continue lorazepam prn but only as directed. avoid opiod whenever you possibly can. [id number] Edvin Casiano MD [facility] ([facility]) [address] [place] [address] [id number] 5 10/21/2024 09:11:49 10/21/2024 10:45:53 Type 2 diabetes mellitus 70692724 E11.59 Seronegati ve rheumatoid arthritis 293418342 M06.00 Bipolar disorder 1755473 4 F31.60 Chronic ob structive pulmonary disease 99383065 J44.9 we discussed need to getting off the cigarettes . she understand s. she is not ready. Chronic ki dney disease stage 3B 136978965 N18.32 Hyperlipidemia 62551836 E78.5 Essential hypertension 06600671 I10 Low back pain 832622933 M54.50 Fatigue 52806069 R53.83 Problem of aging 6979370 1 R54 History of fall 21180015 9 Z91.81 Inflammato ry polyarthropathy 018734411 M06.4 [id number] Edvin Casiano MD [facility] ([facility]) [address] [place] [address] [phone] 5 11/15/2024 13:44:45 11/17/2024 13:57:51 Subclavian steal syndrome 92667789 G45.8 s/p bipass. appears to be having expected postoperat michael effects. Will will bring Alysia back immediatel y if the arm is cold dusky more painful palpable knot or the swelling increases [id number] Edvin Casiano MD [facility] ([facility]) [address] [place] [address] [id number] 5 11/22/2024 08:55:29 11/22/2024 14:00:47 Essential hypertension 35863000 I10 Type 2 remberto betes mellitus 46587011 E11.59 [id number] Edvin Casiano MD [facility] ([facility]) [address] [place] [address] [id number] 5 01/12/2025 09:44:55 01/13/2025 08:11:15 Chronic obstructive pulmonary disease 37009690 J44.9 we discussed need to getting off the cigarettes . she understand s. she is not ready. Insulin tr eated type 2 diabetes mellitus 791349777 Z79.4 Laryngeal stridor 391630 009 J38.5 [id number] Edvin Casiano MD [facility] ([facility]) [address] [place] [address] [phone] 01/19/2025 14:29:39 01/19/2025 22:42:30 Insulin treated type 2 diabetes mellitus 304878156 Z79.4 Chronic ob structive pulmonary disease 32962236 J44.9 we discussed need to getting off the cigarettes . she understand s. she is not ready. Laryngeal stridor 016817 009 J38.5 Seronegati ve rheumatoid arthritis 980808373 M06.00 Hearing loss 39077829 H9 1.93 has c/o hearing loss for a longtime is ready to do something about it. will send a separate referral for hearing referral [id number] Edvin Casiano MD [facility] ([facility]) [address] [place] [address] [phone] 02/16/2025 13:00:34 02/16/2025 15:04:18 Generalized anxiety disorder 70236284 F41.1 no gerald but hx of bipolar disorder. need to re-establi sh mood stabilize continue lorazepam prn but only as directed. avoid opiod whenever you possibly can. Type 2 remberto betes mellitus 21382744 E11.59 Bipolar disorder 9342633 4 F31.60 [id number] Edvin Casiano MD [facility] ([facility]) [address] [place] [address] [phone] 04/04/2025 12:14:48 04/05/2025 11:38:50 Bipolar disorder 27945675 F31.60 Chronic ob structive pulmonary disease 01636922 J44.9 we discussed need to getting off the cigarettes . she understand s. she is not ready. Intermitte nt effusion of joint 833621998 M12.40 M25.432 M12.431 stable despite decrease in prednisone Seronegati ve rheumatoid arthritis 692186414 M06.00 Neuropathic pain 2817930 09 M79.2 [id number] Edvin Casiano MD [facility] ([facility]) [address] [place] [address] [phone] 04/18/2025 11:55:21 04/18/2025 13:12:42 Type 2 diabetes mellitus 11809911 E11.59 Anemia 771679575 D64.9 Chronic anemia 864153869 D64.9 Cramp in limb 241179273 R25.2 Vitamin D deficiency 347 91962 E55.9 Seronegati ve rheumatoid arthritis 271674048 M06.00 Neuropathic pain 5957906 09 M79.2 [id number] Edvin Casiano MD [facility] ([facility]) [address] [place] [address] [phone] 04/27/2025 12:46:53 04/27/2025 17:31:17 Neuropathic pain 207871740 M79.2 Seronegati ve rheumatoid arthritis 230357876 M06.00 Chronic ki dney disease stage 3B 145602719 N18.32 Health Concerns Section Related Observation LastModified by Organization Detai ls LastModified Time None Recorded Concern Status LastModified by Organization Details LastModified Time None Recorded Advance Directives Directive None Recorded Payers Insurance Date Sequence Insurance Name Policy Number Policy Dill Covered Member ID Dill Member ID Guarantor Name 04/24/2025 1 [place]MEDICARE REPLACEMENT HMO) [id number] Katerina Orozco [id number] Katerina Orozco 04/18/2025 2 [place] Katerina Orozco [id number] Katerina Orozco 04/04/2025 1 [place]MEDICARE REPLACEMENT HMO) [id number] Katerina Orozco [id number] Katerina Orozco 04/18/2025 [place] [facility] ([facility] ) Katerina Orozco [id number] Katerina Orozco Notes Date Note Type Note Provider Name and Address Organization Details Recorded Time 5 text/html DiabetesReported bypatient.Review finger sticks:fasting am: 61-183, 2 hours after breakfast 55-235. Before lunch: 136-274, 2 hours after lunch:132-356. Before dinner:51-193, 2 hours after dinner: 103-314. Duration:chronic Control:treated with insulin Compliance:compliant with medications; compliant with follow-up visits Self Care:monitoring glucose (6 times daily)Notes:Pt has been having a lot of wheezing still, but she forgot to switch from breztri to trelegy. Her blood sugar is low at triage. Going from 71 to 55 in a matter of minutes. She just had her lunch and insulin before coming to this appointment. Pt given some crackers and a lollipop to try to remediate. Pt has been having a lot of wheezing still, but she forgot to switch from breztri to trelegy. Her blood sugar is low at triage. Going from 71 to 62 in a matter of minutes. She just had her lunch and insulin before coming to this appointment. she was given chips and suckers. the joe was 5. Appetite has improved a bit since her last visit. Edvin Casiano MD [address] [place] [address], [phone], [facility] 01/19/2025 15:08:19 5 text/html DiabetesReported bypatient.Review finger sticks:fasting am: 101-251, 2 hours after breakfast 150-319. Before lunch: 176-302, 2 hours after lunch: 150-Out of Range. Before dinner: 214-Out of Range, 2 hours after dinner: 199-391. Duration:chronic Control:treated with insulin Compliance:compliant with medications; compliant with follow-up visits Self Care:monitoring glucose (6 times daily) Appetite has not been good. She has been skipping meals and eating small portions. Weight is stable. Edvin Casiano MD [address] [place] [address], [phone], [facility] 02/16/2025 13:57:47 5 text/html Pt is here for a f/u on her rheumatology appt. Pt's prednisone was reduced by rheumatology from 20mg daily to 15mg daily and she was given a script for gabapentin 100mg with the instructions to start with 1 tablet at night and increase to tid. Pt's son states she was only supposed to take 1 tablet daily of the gabapentin this week and then report to rheumatology how she was feeling. She misunderstood and has been taking 3 tablets daily. After consulting with Dr. Casiano, she has continued taking the gabapentin tid. Pt's blood sugar readings range from 98-251 fasting. Edvin Casiano MD [address] [place], [phone], [facility], [place] 04/04/2025 12:59:33 5 text/html 2 week f/u Patient states her hands have continued to hurt and cramp. Pain has been pretty constant for the last two days. She's been weaning off the prednisone, has taken away half a pill. She's taking the Gabapentin and it's making her sleep. She is unsure how it's working because it's been making her so sleepy. Pain does come back. She also had surgery on her eyes last week. [address] [place], [place] [address]Vkkrlgjvq SummarySignedPatient: Katerina Orozco MMR#: [id number]: [id number]#:[id number]/Sex: 73 / FADM Date: 09/13/24Loc: [facility] Room/Bed: [address] [place] [address] Date: 09/27/24Attending Dr: Anand Kat MDReport Number: [id number] ProvidersDate of Admission:09/13/24 05:20Date of Discharge:September 274Attending Provider at Admission:Zeynep Maguire MDAttending Provider at Discharge:ERIC Goldonsults:Surgery: Dr. Yasmany Mcnulty Care Provider:Edvin Casiano, MDDiagnoses at DischargeDischarge Diagnosis(1) Drug reaction with eosinophilia and systemic symptoms:Status: Acute(2) TEN (toxic epidermal necrolysis):Status: Acute(3) Acute on chronic renal insufficiency:Status: Acute(4) Transaminitis:Status: Acute(5) Thrombocytopenia:Status: Acute(6) Neutropenia:Status: Acute(7) Candidiasis:Status: Acute(8) Abdominal wall cellulitis:Status: Acute(9) Chronic steroid use:Status: Acute(10) Hyperglycemia:Status: Acute(11) Diabetes mellitus:Status: Inactive(12) Acute maculopapular rash:Status: Acute(13) Chronic pain syndrome:Status: Chronic(14) Left subclavian artery occlusion:Status: Acute(15) HSV (herpes simplex virus) dendritic keratitis:Status: AcuteReason for VisitReason for Visit: Rash\Under Breast and Folds of Skin\Mouth Thrush Brief History:History as per HPI:Katerian Orozco is a 73 year old female with past medical history of CVA, peripheral vascular disease, bilateral carotid artery stenosis, type 2 diabetes melitis, hypertension, CKD with baseline creatinine of 1.1-1.7.She is presenting to the hospital with chief complaints of worsening candidiasis over bilateral groin folds, under the breasts, and buttocks. Additionally has oropharyngeal candidiasis. States that she has had progressive odynophagia to the point where she is not able to eat or drink anything currently.Patient was recently diagnosed with a presumptive diagnosis of PMR and has been on steroid taper since August 16, 2024. Initially started off with prednisone 50 mg p.o. daily which is being tapered down currently to 20 mg p.o. daily and followed by patient's primary care physician. It appears she did require a recently increased dose of 50 mg p.o. daily due to a flare of arthritis in her right hand for a few days.She developed candidiasis recently for which she presented into the emergency room on 09/11/2024 and was started on fluconazole.Her symptoms have continued to worsen, to the point where she has multiple bleeding ulcers over bilateral groin folds and under her breast. These are extremely painful. There is signs of cellulitis over the lower abdomen additionally.As per the history provided by patient and patient's son at bedside and review of chart, patient had been on Celebrex for a long time for joint pains which were discontinued very recently in June because of heme positive stool. She has undergone an upper and lower endoscopy since then. It appears she was detected to have colonic polyps which were removed. 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 She is scheduled to see vascular surgery as an outpatient. Of note she has widely varying blood pressures as a result of this occlusion. Her right arm is a reliable site to take blood pressure.She denies any fever or chills currently.Today she is noted to have signs of LIZY on CKD, transaminitis on labs.Hospital CourseHospital CoursePatient was admitted to the hospital with concerns for severe candidal infection with maculopapular rash with concerns for poor oral intake secondary to severe mucositis along with concerns for thrush. At first she was started on IV fluconazole, her home dose of steroids were lowered. On admission she was also found to have uncontrolled hyperglycemia which was managed with insulin and IV fluids. Patient continued to have significant pain at the rash with each dressing change. During hospitalization she developed worsening of transaminitis, LIZY on CKD, thrombocytopenia with worsening of rash and developing or new satellite lesions away from skin folds with concerns for central necrosis. 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 On further review with patient and patient's family it seems she was recently started on IV methotrexate and hydrochlorothiazide around 2 weeks prior to her developing the rash. She was started on high-dose steroids with concerns for TEN/SJS/dress syndrome. Fluconazole was changed over to micafungin. Gradually while being on high-dose steroids her rash started improving with resolution of her thrombocytopenia, transaminitis and LIZY. She did develop neutropenia which gradually improved as well. It is believed her thrombocytosis with neutropenia is most likely in setting of marrow reactivation while being on high-dose steroids. Her neutropenia has resolved.Patient has been working well with physical therapist. During hospitalization her antihypertensives were adjusted and currently she has been discharged on hydralazine 25 3 times daily, carvedilol 6.25 twice daily, amlodipine 10 mg oral daily. Her oral intake has been improving. She has finished 10-day course of micafungin. 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 She is to continue taking her current dose of steroids till seen by dermatology team. Her care discussed in detail with patient and patient's son at bedside and all the questions were answered.Physical ExamNarrative:General: No acute distress, AO p5SAPPY: PERRLA, oropharyngeal candidiasis presentChest: Normal vesicular breath sounds, no added sounds, equal good air entry bilaterally.CVS: S1-S2 regular, no murmurs, no tachycardia, no gallops, no rubsAbdomen: Soft, nontender, no organomegaly, bowel sounds present.Bilateral diffuse groin folds with excoriation. Multiple shallow Healing ulcers noted bilaterally, worse over left side of the abdomen. Cellulitis improving. No active bleeding.Various satellite lesions maculopapular in nature without central necrosis seen now.Neuro: No focal deficits, no facial deformity, AO x3, power 5/5 in all limbsExtremities. Bleeding shallow ulceration over bilateral breast folds, right worse than left. Erythema involving skin fold between bilateral buttocks. Secretions noted over this area.Skin: OTHER:09/16document embedded imageRight thighdocument embedded imageDischarge DataStudies Completed and PendingCompleted Studies During HospitalizationCategory [place] [id number] Routine Cat Scan 09/16/24 15:36 CompletedXR chest 1V portable [id number] Routine Exams 09/14/24 13:32 CompletedPathology: Surgical [PTH] Stat Pth 09/15/24 09:03 CompletedUS liver [id number] Routine Ultrasound 09/15/24 10:34 CompletedPending at dischargeCategory Date Time StatusFungal Culture Hair/Skin/Nail Routine Lab 09/14/24 19:26 ResultsFungal Culture Hair/Skin/Nail Routine Lab 09/16/24 12:05 ResultsFungal Culture Hair/Skin/Nail Routine Lab 09/16/24 12:05 ResultsMiscellaneous Test Routine Lab 09/19/24 11:45 ReceivedViral Culture Body Flds,Tissue Routine Lab 09/19/24 11:45 ReceivedRadiology ImpressionsChest X-Ray 09/14/24 13:32IMPRESSION:No acute findings.Liver Ultrasound 09/15/24 10:34IMPRESSION:1. Gallbladder is surgically absent.2. Slightly nodular contour to the liver which has a coarsened echotexture.Findings suspicious for cirrhosis.3. Somewhat small right kidney which appears to be echogenic suspicious formedical renal disease.Chest/Abdomen/Pelvi s CT 09/16/24 15:36IMPRESSION:1. Scattered right upper and middle lobe ground-glass opacities arenonspecific and can be seen with pneumonia and/or pulmonary edema.2. Pulmonary emphysema.3. Multivessel atherosclerotic disease which involves the coronaryarteries.4. Moderate-sized hiatal hernia.5. There is complex fluid in the esophagus consistent with reflux.IMPRESSION:No acute findings.Non acute findings as described above.Laboratory ResultsWBC 10.72 10^3/uL (3.29-11.43)09/27/24 07:11Corrected WBC 1.0 10^3/cmm (4.8-10.8) L111/22/23 05:17RBC 2.93 10^6/uL (3.85-5.65) 09/27/24 07:11Hgb 8.30 g/dL (11.27-16.99) 09/27/24 07:11Hct 26.6 % (36-47) 09/27/24 07:11MCV 90.8 fl (85-98)09/27/24 07:11MCH 28.3 pg (27-33)09/27/24 07:11MCHC 31.2 g/dL (30-55)09/27/24 07:11RDW 15.2 % (12.1-15.1) 09/27/24 07:11Plt Count 736 10^3/cmm (157-399) 09/27/24 07:11MPV 9.3 fL (7.4-10.4)09/27/24 07:11Neut % (Auto) 20.2 %09/26/24 05:15Lymph % (Auto) Not Dpeygqspli94/10/24 07:11Mono % (Auto) Not Lhlvhvlsbw89/10/24 07:11Eos % (Auto) 0.2 %09/26/24 05:15Baso % (Auto) 0.1 %09/26/24 05:15Reticulocyte % (Auto) 3.1 % (0.5-2.0) 09/19/24 04:51Neut # (Auto) 2.00 10^3/uL (1.8-7.7)09/26/24 05:15Lymph # (Auto) Not Tdnjexelwy64/10/24 07:11Mono # (Auto) Not Iawweqfvgt34/10/24 07:11Eos # (Auto) 0.0 10^3/uL (0.0-0.8)09/26/24 05:15Baso # (Auto) 0.0 10^3/uL (0.0-0.1)09/26/24 05:15Nucleated RBC % (auto) 0.7 %09/26/24 05:15Total Counted 100 (0-100)09/27/24 07:11Atypical Lymphs % 2.0 % (0-5)09/27/24 07:11Absolute Neutrophils 6.9 10^3/cmm (1.4-6.5) 09/27/24 07:11Segmented Neutrophils 53 %09/27/24 07:11Band Neutrophils 11.0 %09/27/24 07:11Absolute Lymphocytes 1.5 10^3/cmm (1.2-3.4)09/27/24 07:11Lymphocytes (Manual) 12 %09/27/24 07:11Monocytes (Manual) 3.0 %09/27/24 07:11Absolute Monocytes 0.3 10^3/cmm (0.1-0.6)09/27/24 07:11Eosinophils (Manual) 0 %09/27/24 07:11Absolute Eosinophils 0.0 10^3/cmm (0.0-0.7)09/27/24 07:11Basophils (Manual) 0.0 %09/27/24 07:11Absolute Basophils 0.0 10^3/cmm (0.0-0.2)09/27/24 07:11Metamyelocytes 4.0 %09/27/24 07:11Myelocytes 13.0 %09/27/24 07:11Promyelocytes 2.0 %09/27/24 07:11Nucleated RBCs 1.0 /100WBC (0-1)09/25/24 05:24Nucleated RBCs # 0.1 /994IMN86/09/24 05:15Pathologist Review No09/14/24 04:41Platelet Estimate Increased (Normal) 09/27/24 07:11Giant Platelets 1+ 09/25/24 05:24Anisocytosis Trace09/25/24 05:24Microcytosis 1+ 09/27/24 07:11Macrocytosis 1+ 09/27/24 07:11Peripher Smr Path Cons Sent for tabewk47/04/24 05:17ESR 41 mm/hr (0-15) H111/13/23 04:40Retic Production Index 1. 04:51Haptoglobin 172.0 mg/L (30-200)09/20/24 04:58Heparin Require Pat 0.5070009/16/24 12:30PT 13.50 SECONDS (12.1-14.9)09/19/24 09:37INR 1.00 (0.8-1.2)09/19/24 09:37APTT 22.5 SECONDS (23.9-36.7) L111/20/23 09:37Fibrinogen 513 mg/dL (174-498) 09/19/24 09:37Fibrin Degrad Products <5 mcg/mL (LESS THAN 5)09/19/24 09:43D-Dimer 1.48 ug/mLFEU (0-0.59) 09/19/24 09:37Sodium 139 mmol/L (136-145)09/27/24 07:11Potassium 2.9 mmol/L (3.5-5.1) 09/27/24 07:11Chloride 97 mmol/L (98-107) 09/27/24 07:11Carbon Dioxide 30 mmol/L (22-29) 09/27/24 07:11Anion Gap 14.9 (5-19)09/27/24 07:11BUN 31 mg/dL (8-23) 09/27/24 07:11Creatinine 1.3 mg/dL (0.5-0.9) 09/27/24 07:11GFR Calculation Not Wxlxyevgjw70/10/24 07:11Glucose 164 mg/dL (65-115) 09/27/24 07:11POC Glucose 171 mg/dL (70-110) 09/27/24 08:14Estimat Average Glucose 6485709/13/24 04:40Hemoglobin A1c 9.9 % (4.0-6.0) 09/13/24 04:40Calculated Osmolality 298 mOsm/kg (285-295) 09/27/24 07:11Calcium 8.6 mg/dL (8.5-10.5)09/27/24 07:11Magnesium 1.9 mg/dL (1.7-2.3)09/27/24 07:11Iron 33 ug/dL (37-145) 09/13/24 13:15TIBC 209 mcg/dl09/13/24 13:15% Saturation 15.7 % (20-50) 09/13/24 13:15Unsat Iron Binding 176 ug/dL (112-347)09/13/24 13:15Total Bilirubin 0.4 mg/dL (0.15-1.2)09/27/24 07:11AST 23 U/L (0-32)09/27/24 07:11ALT 22 U/L (0-33)09/27/24 07:11Alkaline Phosphatase 107 U/L (35-105) 09/27/24 07:11Lactate Dehydrogenase 257 U/L (135-214) 09/19/24 04:51Creatine Kinase 77 U/L (26-192)09/13/24 13:15C-Reactive Protein 88.1 mg/L (0.0-4.9) 09/13/24 04:40Total Protein 5.6 g/dL (6.6-8.7) 09/27/24 07:11Albumin 3.4 g/dL (3.5-5.2) 09/27/24 07:11Globulin 2.2 g/dL (1.3-4.6)09/27/24 07:11Triglycerides 122 mg/dL (0-150)09/14/24 04:41Cholesterol 147 mg/dL (0-200)09/14/24 04:41LDL Cholesterol, Calc 35 mg/dL (50-129) 09/14/24 04:41Total VLDL Cholesterol 24 mg/dL (0-30)09/14/24 04:41HDL Cholesterol 88 mg/dL (60-100)09/14/24 04:41Cholesterol/HDL Ratio 1.67 mg/dL (0.0-4.40)09/14/24 04:41Vitamin B12 956 pg/mL (232-1245)09/13/24 13:15Folate > 20.0 ng/mL (4.8-37.3)09/14/24 04:41Procalcitonin 0.19 ng/mL (0-0.5)09/13/24 13:15TSH 1.53 uIU/mL (0.27-4.20)09/13/24 04:40Urine Color Yellow (Yellow)09/17/24 23:42Urine Appearance Clear (CLEAR)09/17/24 23:42Urine pH 5.0 (5-7)09/17/24 23:42Ur Specific [place] 1.020 (1.005-1.030)09/17/24 23:42Urine Protein 3+ (Negative) 09/17/24 23:42Urine Glucose (UA) Trace (Normal) H111/17/23 23:42Urine Ketones Negative (Negative)09/17/24 23:42Urine Blood 1+ (Negative) 09/17/24 23:42Urine Nitrate Negative (Negative)09/17/24 23:42Urine Bilirubin Negative (Negative)09/17/24 23:42Urine Urobilinogen 0.2 mg/dL (Negative)09/17/24 23:42Ur Leukocyte Esterase 1+ (Negative) 09/17/24 23:42Urine RBC 0-2 /hpf (0-2)09/17/24 23:42Urine WBC 6-10 /hpf (0-5)09/17/24 23:42Ur Eosinophil Smear 0 (0-0)09/17/24 23:42Ur Squamous Epith Cells 0-5 /hpf (0-5)09/17/24 23:42Amorphous Sediment Not Mghtnpario83/30/24 23:42Urine Bacteria None seen /hpf (NONE)09/17/24 23:42Hyaline Casts 13.22 /lpf111/17/23 23:42Urine Eosinophils No eosinophils seen09/17/24 23:42Ur Random Sodium 22 mmol/L111/17/23 23:42Ur Random Potassium 52 mmol/L111/17/23 23:42Ur Random Chloride 23 mmol/L111/17/23 23:42Urine Creatinine 124 mg/dL (28-217)09/17/24 23:42Nasal MRSA (PCR) Not detected (Not Detecte)09/13/24 07:55JO-1 Antibody <1.0 neg AI (<1.0 NEG)09/13/24 13:15SS-A/Ro IgG Antibody <1.0 neg AI (<1.0 NEG)09/13/24 13:15SS-B/La IgG Antibody <1.0 neg AI (<1.0 NEG)09/13/24 13:15Anti-nRNP/Sm IgG Ab <1.0 neg09/13/24 13:15Scl-70 Scleroderma Ab <1.0 neg AI (<1.0 NEG)09/13/24 13:15Anti-ds DNA IgG Ab <1 IU/mL09/13/24 13:15Heparin-induced Ab Negative (NEGATIVE)09/16/24 12:30UF Heparin Low Dose 1 0 % weoooug84/29/24 12:30UF Heparin Low Dose 2 1 % /29/24 12:30UF Heparin High Dose 0 % /29/24 12:30SRA Unfract Heparin Negative (NEGATIVE)09/16/24 12:30Hepatitis A IgM Ab Non-reactive (Nonreactive)09/13/24 13:15Hep Bs Antigen Non-reactive (Nonreactive)09/13/24 13:15Hep Bs Antibody < 3.5 (11.5-1000) L111/13/23 13:15Hep B Core Total Ab Non-reactive (Nonreactive)09/13/24 13:15Hepatitis C Antibody Non-reactive (Nonreactive)09/13/24 13:15Herpes Simplex Source Groin rash09/16/24 12:05HSV I DNA PCR Not biabnxfd53/29/24 12:05HSV II DNA PCR Not yvgnpbkm49/29/24 12:05HIV 1&2 Ab & HIV 1 Ag Non-reactive (Non-Reactiv)09/13/24 13:15HIV 1&2 Antibody Non-reactive (Non-Reactiv)09/13/24 13:15HSV 1 DNA Not detected (Not Detected)09/16/24 12:05HSV 2 DNA Detected (Not Detected) A111/16/23 12:05VitalsLast Vital SignsTemp 97.7 F 09/27/24 07:50Pulse 78 09/27/24 08:28Resp 17 09/27/24 08:20BP 177/69 09/27/24 07:50Pulse Ox 92 09/27/24 08:20O2 Del Method Room Air 09/27/24 08:20O2 Flow Rate 2 09/17/24 02:25Discharge PlanDischargePatient Disposition: Home Health ServiceCondition: StablePrescriptions:Newnyst atin 100,000 unit/mL Wbavlfsrcd102,000 unit PO QID 7 Days Qty: 112 0RFvalacyclovir 1 gram Bkfntu480 mg PO BID 10 Days Qty: 10 0RFcarvedilol 6.25 mg Tablet6.25 mg PO BID Qty: 60 0RFhydralazine 25 mg Peiecz92 mg PO TID 30 Days Qty: 90 0RFSore Throat (phenol) 1.4 % Aerosol,Spray3 spray mucous membrane Q2H PRN (Reason: Sore Throat) Qty: 177 0RFsucralfate 100 mg/mL Suspension1 g PO AC&BEDTIME 30 Days Qty: 200 0RFprednisone 10 mg mg PO TID Qty: 30 0RF(DME) lancets MiscSee Rx Instructions .ROUTE .MEDSUPPLY Qty: 100 0RFRx Instructions:As directed(DME) blood-glucose meter [Blood Glucose Monitoring] KitSee Rx Instructions .ROUTE .MEDSUPPLY Qty: 1 0RFRx Instructions:As directed(DME) pen needle, diabetic [BD Ultra-Fine Micro Pen Needle] 32 gauge x 1/4 needleSee Rx Instructions .ROUTE .MEDSUPPLY Qty: 50 0RFRx Instructions:As directedinsulin lispro [Humalog KwikPen Insulin] 100 unit/mL insulin pen5 unit SUBCUT TID Qty: 15 0RFinsulin glargine [Basaglar KwikPen U-100 Insulin] 100 unit/mL (3 mL) insulin pen7 unit SUBCUT BID Qty: 15 0RFContinuedalbuterol sulfate [Ventolin HFA] 90 mcg/actuation HFA aerosol inhaler2 puff INHALATION Q6H PRN (Reason: Shortness Of Breath Or Wheezing)omeprazole 40 mg capsule,delayed release(DR/EC)40 mg PO BIDBreztri Aerosphere 160-9-4.8 mcg/actuation HFA aerosol inhaler2 inh inhalation BIDlorazepam 1 mg tablet0.5 mg PO BID PRN (Reason: anxiety) Qty: 14 0RFamlodipine 10 mg ozmtwx45 mg PO DAILYfolic acid 1 mg tablet1 mg PO DAILYnystatin [Nystop] 100,000 unit/gram powder1 applic TOPICAL BIDSilvaSorb Gel,Extended Release1 applic TOPICAL Q12H PRN (Reason: wound dressing)nystatin 100,000 unit/gram powder1 applic topical BID Qty: 60 0RFipratropium-albuterol 0.5 mg-3 mg(2.5 mg base)/3 mL solution for nebulization3 ml INHALATION QIDondansetron HCl 8 mg tablet8 mg PO TID PRN (Reason: Nausea And Vomiting)clopidogrel 75 mg mg PO DAILYoxycodone 5 mg capsule5 mg PO Q8H PRN (Reason: Pain)ferrous gluconate 324 mg (38 mg iron) jctatv618 mg PO G67Izgwjwxbwgko 500 mcg zeqtke960 mcg PO DAILYChangedquetiapine 50 mg alwizi65 mg PO BEDTIME Qty: 10 0RFDiscontinuedirbesartan 300 mg fmiafk921 mg PO DAILYrosuvastatin 40 mg vgteqi66 mg PO QPMpotassium chloride 20 mEq tablet extended ykhwebb88 meq PO BID Qty: 20 0RFmetoprolol succinate 50 mg tablet extended release 24 hr50 mg PO DAILYmethotrexate sodium 2.5 mg tablet2.5 mg PO I0Kbqxyoirgiynywfdkmfm 25 mg waspjw55 mg PO DAILYprednisone 10 mg tabletSee Taper PO BIDTaper: predniSONE 60-1060 mg Daily for 4 Days and 0 Hour50 mg Daily for 4 Days and 0 Hour40 mg Daily for 4 Days and 0 Hour30 mg Daily for 4 Days and 0 Hour20 mg Daily for 4 Days and 0 Hour10 mg Daily for 4 Days and 0 Hourfluconazole 150 mg edzpky132 mg PO Q3D Qty: 2 0RFmetformin 1,000 mg tablet1,000 mg PO DAILY Qty: 10 0RFDischarge Orders:Discharge Order (Routine); Ordered 09/27/24Ordered By: Anand Bishopals:[facility] [Outside]Yoko Kaminski DO [Physician] - 10/03/24 3:30 pmEdvin Casiano MD [Primary Care Provider] - 10/05/24 11:15 am()Discharge Diet: Cardiac, Diabetic and Soft MechanicalDischarge Activity: Resume usual activity and Increase activity as toleratedPatient Instructions: Prednisone (By mouth) (Prednisone Intensol, Prednicot, Deltasone, Ashanti), Insulin Glargine (By injection) (Lantus, Lantus SoloStar, Toujeo, Semglee), Insulin Lispro (By injection) (Humalog, Humalog Pen, Lispro-PFC,..., How to Give an Insulin Injection (DC), Oral Herpes Infection (ED), Toxic Epidermal Necrolysis (DC), Skin Yeast Infection (ED), How to Check your Blood Sugar (DC), Opioid SafetyActivity Restrictions/Additional Instructions:Your goal blood pressure is less than 140/90 mmHg. Please check your blood pressure daily at home maintain a blood pressure diary. Follow-up with a primary care provider within next 1 week for adjustment of antihypertensive.Continue taking your steroids I have directed until you see your patient financial services manager on set appointment.For now please avoid hydrochlorothiazide, fluconazole and methotrexate.Check your blood sugars daily at home and maintain a blood sugar diary 3 times before meals. Follow-up with a primary care provider on set appointment with a blood sugar and a blood pressure diary for further adjustment of medications as needed.Discharge AttestationsTime Spent in Discharge Care*: greater than 30 minSpecific Discharge Activities: educating patient, discussing with pcp/other providers, discussing with manager rn case/social workers/dc planners, documenting/other paperwork and evaluating patient/reviewing dataStatus at Discharge: Cognitive status at discharge: cognitively intact, Behavioral status at discharge: cooperative, Functional status at discharge: independent ambulation, Overall status at discharge: patient is progressing back to baselineQuality MetricsClinical Quality Measures[ No reported AMI, CVA or VTE this stay]CodingLevel of Care [id number] time (in minutes) for Discharge: 70DiagnosesDrug reaction with eosinophilia and systemic symptoms D72.10; T50.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 (toxic epidermal necrolysis) L51.2Acute on chronic renal insufficiency N28.9; N18.9Transaminitis R74.01Thrombocytopenia D69.6Neutropenia D70.9Candidiasis B37.9Abdominal wall cellulitis L03.311Chronic steroid useHyperglycemia R73.9Diabetes mellitus E11.9Acute maculopapular rash P04Izwhund pain syndrome G89.4Left subclavian artery occlusion I70.8HSV (herpes simplex virus) dendritic keratitis B00.52Dictated By:Anand Kat MDSigned By:Anand Kat MDSigned Date/Time:09/27/24 1843DD/ [address] [address]Hmevmyous SummarySignedPatient: Katerina Orozco MMR#: [id number]: 1950Acct#:[id number]/Sex: 73 / FADM Date: 09/13/24Loc: [facility] Room/Bed: [address] [place] [address] Date: 09/27/24Attending Dr: Anand Kat MDReport Number: [id number] ProvidersDate of Admission:09/13/24 05:20Date of Discharge:September 274Attending Provider at Admission:Zeynep Maguire MDAttending Provider at Discharge:ERIC Goldonsults:Surgery: Dr. Yasmany Mcnulty Care Provider:Edvin Casiano MDDiagnkasi at DischargeDischarge Diagnosis(1) Drug reaction with eosinophilia and systemic symptoms:Status: Acute(2) TEN (toxic epidermal necrolysis):Status: Acute(3) Acute on chronic renal insufficiency:Status: Acute(4) Transaminitis:Status: Acute(5) Thrombocytopenia:Status: Acute(6) Neutropenia:Status: Acute(7) Candidiasis:Status: Acute(8) Abdominal wall cellulitis:Status: Acute(9) Chronic steroid use:Status: Acute(10) Hyperglycemia:Status: Acute(11) Diabetes mellitus:Status: Inactive(12) Acute maculopapular rash:Status: Acute(13) Chronic pain syndrome:Status: Chronic(14) Left subclavian artery occlusion:Status: Acute(15) HSV (herpes simplex virus) dendritic keratitis:Status: AcuteReason for VisitReason for Visit: Rash\Under Breast and Folds of Skin\Mouth Thrush Brief History:History as per HPI:Katerina Orozco is a 73 year old female with past medical history of CVA, peripheral vascular disease, bilateral carotid artery stenosis, type 2 diabetes melitis, hypertension, CKD with baseline creatinine of 1.1-1.7.She is presenting to the hospital with chief complaints of worsening candidiasis over bilateral groin folds, under the breasts, and buttocks. Additionally has oropharyngeal candidiasis. States that she has had progressive odynophagia to the point where she is not able to eat or drink anything currently.Patient was recently diagnosed with a presumptive diagnosis of PMR and has been on steroid taper since August 16, 2024. Initially started off with prednisone 50 mg p.o. daily which is being tapered down currently to 20 mg p.o. daily and followed by patient's primary care physician. It appears she did require a recently increased dose of 50 mg p.o. daily due to a flare of arthritis in her right hand for a few days.She developed candidiasis recently for which she presented into the emergency room on 09/11/2024 and was started on fluconazole.Her symptoms have continued to worsen, to the point where she has multiple bleeding ulcers over bilateral groin folds and under her breast. These are extremely painful. There is signs of cellulitis over the lower abdomen additionally.As per the history provided by patient and patient's son at bedside and review of chart, patient had been on Celebrex for a long time for joint pains which were discontinued very recently in June because of heme positive stool. She has undergone an upper and lower endoscopy since then. It appears she was detected to have colonic polyps which were removed. 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 She is scheduled to see vascular surgery as an outpatient. Of note she has widely varying blood pressures as a result of this occlusion. Her right arm is a reliable site to take blood pressure.She denies any fever or chills currently.Today she is noted to have signs of LIZY on CKD, transaminitis on labs.Hospital CourseHospital CoursePatient was admitted to the hospital with concerns for severe candidal infection with maculopapular rash with concerns for poor oral intake secondary to severe mucositis along with concerns for thrush. At first she was started on IV fluconazole, her home dose of steroids were lowered. On admission she was also found to have uncontrolled hyperglycemia which was managed with insulin and IV fluids. Patient continued to have significant pain at the rash with each dressing change. During hospitalization she developed worsening of transaminitis, LIZY on CKD, thrombocytopenia with worsening of rash and developing or new satellite lesions away from skin folds with concerns for central necrosis. 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 On further review with patient and patient's family it seems she was recently started on IV methotrexate and hydrochlorothiazide around 2 weeks prior to her developing the rash. She was started on high-dose steroids with concerns for TEN/SJS/dress syndrome. Fluconazole was changed over to micafungin. Gradually while being on high-dose steroids her rash started improving with resolution of her thrombocytopenia, transaminitis and LIZY. She did develop neutropenia which gradually improved as well. It is believed her thrombocytosis with neutropenia is most likely in setting of marrow reactivation while being on high-dose steroids. Her neutropenia has resolved.Patient has been working well with physical therapist. During hospitalization her antihypertensives were adjusted and currently she has been discharged on hydralazine 25 3 times daily, carvedilol 6.25 twice daily, amlodipine 10 mg oral daily. Her oral intake has been improving. She has finished 10-day course of micafungin. 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 She is to continue taking her current dose of steroids till seen by dermatology team. Her care discussed in detail with patient and patient's son at bedside and all the questions were answered.Physical ExamNarrative:General: No acute distress, AO s5SJHDE: PERRLA, oropharyngeal candidiasis presentChest: Normal vesicular breath sounds, no added sounds, equal good air entry bilaterally.CVS: S1-S2 regular, no murmurs, no tachycardia, no gallops, no rubsAbdomen: Soft, nontender, no organomegaly, bowel sounds present.Bilateral diffuse groin folds with excoriation. Multiple shallow Healing ulcers noted bilaterally, worse over left side of the abdomen. Cellulitis improving. No active bleeding.Various satellite lesions maculopapular in nature without central necrosis seen now.Neuro: No focal deficits, no facial deformity, AO x3, power 5/5 in all limbsExtremities. Bleeding shallow ulceration over bilateral breast folds, right worse than left. Erythema involving skin fold between bilateral buttocks. Secretions noted over this area.Skin: OTHER:09/16document embedded imageRight thighdocument embedded imageDischarge DataStudies Completed and PendingCompleted Studies During HospitalizationCategory [place] [id number] Routine Cat Scan 09/16/24 15:36 CompletedXR chest 1V portable [id number] Routine Exams 09/14/24 13:32 CompletedPathology: Surgical [PTH] Stat Pth 09/15/24 09:03 CompletedUS liver [id number] Routine Ultrasound 09/15/24 10:34 CompletedPending at dischargeCategory Date Time StatusFungal Culture Hair/Skin/Nail Routine Lab 09/14/24 19:26 ResultsFungal Culture Hair/Skin/Nail Routine Lab 09/16/24 12:05 ResultsFungal Culture Hair/Skin/Nail Routine Lab 09/16/24 12:05 ResultsMiscellaneous Test Routine Lab 09/19/24 11:45 ReceivedViral Culture Body Flds,Tissue Routine Lab 09/19/24 11:45 ReceivedRadiology ImpressionsChest X-Ray 09/14/24 13:32IMPRESSION:No acute findings.Liver Ultrasound 09/15/24 10:34IMPRESSION:1. Gallbladder is surgically absent.2. Slightly nodular contour to the liver which has a coarsened echotexture.Findings suspicious for cirrhosis.3. Somewhat small right kidney which appears to be echogenic suspicious formedical renal disease.Chest/Abdomen/Pelvi s CT 09/16/24 15:36IMPRESSION:1. Scattered right upper and middle lobe ground-glass opacities arenonspecific and can be seen with pneumonia and/or pulmonary edema.2. Pulmonary emphysema.3. Multivessel atherosclerotic disease which involves the coronaryarteries.4. Moderate-sized hiatal hernia.5. There is complex fluid in the esophagus consistent with reflux.IMPRESSION:No acute findings.Non acute findings as described above.Laboratory ResultsWBC 10.72 10^3/uL (3.29-11.43)09/27/24 07:11Corrected WBC 1.0 10^3/cmm (4.8-10.8) 09/21/24 05:17RBC 2.93 10^6/uL (3.85-5.65) 09/27/24 07:11Hgb 8.30 g/dL (11.27-16.99) 09/27/24 07:11Hct 26.6 % (36-47) 09/27/24 07:11MCV 90.8 fl (85-98)09/27/24 07:11MCH 28.3 pg (27-33)09/27/24 07:11MCHC 31.2 g/dL (30-55)09/27/24 07:11RDW 15.2 % (12.1-15.1) 09/27/24 07:11Plt Count 736 10^3/cmm (157-399) 09/27/24 07:11MPV 9.3 fL (7.4-10.4)09/27/24 07:11Neut % (Auto) 20.2 %09/26/24 05:15Lymph % (Auto) Not Eobkepcgkz29/10/24 07:11Mono % (Auto) Not Cqanpcdxut60/10/24 07:11Eos % (Auto) 0.2 %09/26/24 05:15Baso % (Auto) 0.1 %09/26/24 05:15Reticulocyte % (Auto) 3.1 % (0.5-2.0) 09/19/24 04:51Neut # (Auto) 2.00 10^3/uL (1.8-7.7)09/26/24 05:15Lymph # (Auto) Not Fhcoktzyjo28/10/24 07:11Mono # (Auto) Not Zosfgmawtb84/10/24 07:11Eos # (Auto) 0.0 10^3/uL (0.0-0.8)09/26/24 05:15Baso # (Auto) 0.0 10^3/uL (0.0-0.1)09/26/24 05:15Nucleated RBC % (auto) 0.7 %09/26/24 05:15Total Counted 100 (0-100)09/27/24 07:11Atypical Lymphs % 2.0 % (0-5)09/27/24 07:11Absolute Neutrophils 6.9 10^3/cmm (1.4-6.5) 09/27/24 07:11Segmented Neutrophils 53 %09/27/24 07:11Band Neutrophils 11.0 %09/27/24 07:11Absolute Lymphocytes 1.5 10^3/cmm (1.2-3.4)09/27/24 07:11Lymphocytes (Manual) 12 %09/27/24 07:11Monocytes (Manual) 3.0 %09/27/24 07:11Absolute Monocytes 0.3 10^3/cmm (0.1-0.6)09/27/24 07:11Eosinophils (Manual) 0 %09/27/24 07:11Absolute Eosinophils 0.0 10^3/cmm (0.0-0.7)09/27/24 07:11Basophils (Manual) 0.0 %09/27/24 07:11Absolute Basophils 0.0 10^3/cmm (0.0-0.2)09/27/24 07:11Metamyelocytes 4.0 %09/27/24 07:11Myelocytes 13.0 %09/27/24 07:11Promyelocytes 2.0 %09/27/24 07:11Nucleated RBCs 1.0 /100WBC (0-1)09/25/24 05:24Nucleated RBCs # 0.1 /666DPQ61/09/24 05:15Pathologist Review No09/14/24 04:41Platelet Estimate Increased (Normal) 09/27/24 07:11Giant Platelets 1+ 09/25/24 05:24Anisocytosis Trace09/25/24 05:24Microcytosis 1+ 09/27/24 07:11Macrocytosis 1+ 09/27/24 07:11Peripher Smr Path Cons Sent for malwtr80/04/24 05:17ESR 41 mm/hr (0-15) H111/13/23 04:40Retic Production Index 1. 04:51Haptoglobin 172.0 mg/L (30-200)09/20/24 04:58Heparin Require Pat 0.2999209/16/24 12:30PT 13.50 SECONDS (12.1-14.9)09/19/24 09:37INR 1.00 (0.8-1.2)09/19/24 09:37APTT 22.5 SECONDS (23.9-36.7) L111/20/23 09:37Fibrinogen 513 mg/dL (174-498) 09/19/24 09:37Fibrin Degrad Products <5 mcg/mL (LESS THAN 5)09/19/24 09:43D-Dimer 1.48 ug/mLFEU (0-0.59) 09/19/24 09:37Sodium 139 mmol/L (136-145)09/27/24 07:11Potassium 2.9 mmol/L (3.5-5.1) L111/28/23 07:11Chloride 97 mmol/L (98-107) L111/28/23 07:11Carbon Dioxide 30 mmol/L (22-29) 09/27/24 07:11Anion Gap 14.9 (5-19)09/27/24 07:11BUN 31 mg/dL (8-23) 09/27/24 07:11Creatinine 1.3 mg/dL (0.5-0.9) 09/27/24 07:11GFR Calculation Not Cokeltuiuh96/10/24 07:11Glucose 164 mg/dL (65-115) 09/27/24 07:11POC Glucose 171 mg/dL (70-110) 09/27/24 08:14Estimat Average Glucose 4011009/13/24 04:40Hemoglobin A1c 9.9 % (4.0-6.0) 09/13/24 04:40Calculated Osmolality 298 mOsm/kg (285-295) 09/27/24 07:11Calcium 8.6 mg/dL (8.5-10.5)09/27/24 07:11Magnesium 1.9 mg/dL (1.7-2.3)09/27/24 07:11Iron 33 ug/dL (37-145) 09/13/24 13:15TIBC 209 mcg/dl09/13/24 13:15% Saturation 15.7 % (20-50) 09/13/24 13:15Unsat Iron Binding 176 ug/dL (112-347)09/13/24 13:15Total Bilirubin 0.4 mg/dL (0.15-1.2)09/27/24 07:11AST 23 U/L (0-32)09/27/24 07:11ALT 22 U/L (0-33)09/27/24 07:11Alkaline Phosphatase 107 U/L (35-105) 09/27/24 07:11Lactate Dehydrogenase 257 U/L (135-214) 09/19/24 04:51Creatine Kinase 77 U/L (26-192)09/13/24 13:15C-Reactive Protein 88.1 mg/L (0.0-4.9) 09/13/24 04:40Total Protein 5.6 g/dL (6.6-8.7) 09/27/24 07:11Albumin 3.4 g/dL (3.5-5.2) 09/27/24 07:11Globulin 2.2 g/dL (1.3-4.6)09/27/24 07:11Triglycerides 122 mg/dL (0-150)09/14/24 04:41Cholesterol 147 mg/dL (0-200)09/14/24 04:41LDL Cholesterol, Calc 35 mg/dL (50-129) L111/14/23 04:41Total VLDL Cholesterol 24 mg/dL (0-30)09/14/24 04:41HDL Cholesterol 88 mg/dL (60-100)09/14/24 04:41Cholesterol/HDL Ratio 1.67 mg/dL (0.0-4.40)09/14/24 04:41Vitamin B12 956 pg/mL (232-1245)09/13/24 13:15Folate > 20.0 ng/mL (4.8-37.3)09/14/24 04:41Procalcitonin 0.19 ng/mL (0-0.5)09/13/24 13:15TSH 1.53 uIU/mL (0.27-4.20)09/13/24 04:40Urine Color Yellow (Yellow)09/17/24 23:42Urine Appearance Clear (CLEAR)09/17/24 23:42Urine pH 5.0 (5-7)09/17/24 23:42Ur Specific [place] 1.020 (1.005-1.030)09/17/24 23:42Urine Protein 3+ (Negative) 09/17/24 23:42Urine Glucose (UA) Trace (Normal) H111/17/23 23:42Urine Ketones Negative (Negative)09/17/24 23:42Urine Blood 1+ (Negative) 09/17/24 23:42Urine Nitrate Negative (Negative)09/17/24 23:42Urine Bilirubin Negative (Negative)09/17/24 23:42Urine Urobilinogen 0.2 mg/dL (Negative)09/17/24 23:42Ur Leukocyte Esterase 1+ (Negative) 09/17/24 23:42Urine RBC 0-2 /hpf (0-2)09/17/24 23:42Urine WBC 6-10 /hpf (0-5)09/17/24 23:42Ur Eosinophil Smear 0 (0-0)09/17/24 23:42Ur Squamous Epith Cells 0-5 /hpf (0-5)09/17/24 23:42Amorphous Sediment Not Npcubsuxgo09/30/24 23:42Urine Bacteria None seen /hpf (NONE)09/17/24 23:42Hyaline Casts 13.22 /lpf111/17/23 23:42Urine Eosinophils No eosinophils seen09/17/24 23:42Ur Random Sodium 22 mmol/L111/17/23 23:42Ur Random Potassium 52 mmol/L111/17/23 23:42Ur Random Chloride 23 mmol/L111/17/23 23:42Urine Creatinine 124 mg/dL (28-217)09/17/24 23:42Nasal MRSA (PCR) Not detected (Not Detecte)09/13/24 07:55JO-1 Antibody <1.0 neg AI (<1.0 NEG)09/13/24 13:15SS-A/Ro IgG Antibody <1.0 neg AI (<1.0 NEG)09/13/24 13:15SS-B/La IgG Antibody <1.0 neg AI (<1.0 NEG)09/13/24 13:15Anti-nRNP/Sm IgG Ab <1.0 neg09/13/24 13:15Scl-70 Scleroderma Ab <1.0 neg AI (<1.0 NEG)09/13/24 13:15Anti-ds DNA IgG Ab <1 IU/mL09/13/24 13:15Heparin-induced Ab Negative (NEGATIVE)09/16/24 12:30UF Heparin Low Dose 1 0 % wmwvdew51/29/24 12:30UF Heparin Low Dose 2 1 % /29/24 12:30UF Heparin High Dose 0 % biuucfx13/29/24 12:30SRA Unfract Heparin Negative (NEGATIVE)09/16/24 12:30Hepatitis A IgM Ab Non-reactive (Nonreactive)09/13/24 13:15Hep Bs Antigen Non-reactive (Nonreactive)09/13/24 13:15Hep Bs Antibody < 3.5 (11.5-1000) L111/13/23 13:15Hep B Core Total Ab Non-reactive (Nonreactive)09/13/24 13:15Hepatitis C Antibody Non-reactive (Nonreactive)09/13/24 13:15Herpes Simplex Source Groin rash09/16/24 12:05HSV I DNA PCR Not saurvagc86/29/24 12:05HSV II DNA PCR Not ikahgzft26/29/24 12:05HIV 1&2 Ab & HIV 1 Ag Non-reactive (Non-Reactiv)09/13/24 13:15HIV 1&2 Antibody Non-reactive (Non-Reactiv)09/13/24 13:15HSV 1 DNA Not detected (Not Detected)09/16/24 12:05HSV 2 DNA Detected (Not Detected) A111/16/23 12:05VitalsLast Vital SignsTemp 97.7 F 09/27/24 07:50Pulse 78 09/27/24 08:28Resp 17 09/27/24 08:20BP 177/69 09/27/24 07:50Pulse Ox 92 09/27/24 08:20O2 Del Method Room Air 09/27/24 08:20O2 Flow Rate 2 09/17/24 02:25Discharge PlanDischargePatient Disposition: Home Health ServiceCondition: StablePrescriptions:Newnyst atin 100,000 unit/mL Ydmfirtznm344,000 unit PO QID 7 Days Qty: 112 0RFvalacyclovir 1 gram Xsvwmt100 mg PO BID 10 Days Qty: 10 0RFcarvedilol 6.25 mg Tablet6.25 mg PO BID Qty: 60 0RFhydralazine 25 mg Tyfvmc45 mg PO TID 30 Days Qty: 90 0RFSore Throat (phenol) 1.4 % Aerosol,Spray3 spray mucous membrane Q2H PRN (Reason: Sore Throat) Qty: 177 0RFsucralfate 100 mg/mL Suspension1 g PO AC&BEDTIME 30 Days Qty: 200 0RFprednisone 10 mg tkedvv43 mg PO TID Qty: 30 0RF(DME) lancets MiscSee Rx Instructions .ROUTE .MEDSUPPLY Qty: 100 0RFRx Instructions:As directed(DME) blood-glucose meter [Blood Glucose Monitoring] KitSee Rx Instructions .ROUTE .MEDSUPPLY Qty: 1 0RFRx Instructions:As directed(DME) pen needle, diabetic [BD Ultra-Fine Micro Pen Needle] 32 gauge x 1/4 needleSee Rx Instructions .ROUTE .MEDSUPPLY Qty: 50 0RFRx Instructions:As directedinsulin lispro [Humalog KwikPen Insulin] 100 unit/mL insulin pen5 unit SUBCUT TID Qty: 15 0RFinsulin glargine [Basaglar KwikPen U-100 Insulin] 100 unit/mL (3 mL) insulin pen7 unit SUBCUT BID Qty: 15 0RFContinuedalbuterol sulfate [Ventolin HFA] 90 mcg/actuation HFA aerosol inhaler2 puff INHALATION Q6H PRN (Reason: Shortness Of Breath Or Wheezing)omeprazole 40 mg capsule,delayed release(DR/EC)40 mg PO BIDBreztri Aerosphere 160-9-4.8 mcg/actuation HFA aerosol inhaler2 inh inhalation BIDlorazepam 1 mg tablet0.5 mg PO BID PRN (Reason: anxiety) Qty: 14 0RFamlodipine 10 mg deoros62 mg PO DAILYfolic acid 1 mg tablet1 mg PO DAILYnystatin [Nystop] 100,000 unit/gram powder1 applic TOPICAL BIDSilvaSorb Gel,Extended Release1 applic TOPICAL Q12H PRN (Reason: wound dressing)nystatin 100,000 unit/gram powder1 applic topical BID Qty: 60 0RFipratropium-albuterol 0.5 mg-3 mg(2.5 mg base)/3 mL solution for nebulization3 ml INHALATION QIDondansetron HCl 8 mg tablet8 mg PO TID PRN (Reason: Nausea And Vomiting)clopidogrel 75 mg oldwul68 mg PO DAILYoxycodone 5 mg capsule5 mg PO Q8H PRN (Reason: Pain)ferrous gluconate 324 mg (38 mg iron) mg PO D00Yxsgnhpcipeq 500 mcg mcg PO DAILYChangedquetiapine 50 mg jwrlol02 mg PO BEDTIME Qty: 10 0RFDiscontinuedirbesartan 300 mg uiyejf942 mg PO DAILYrosuvastatin 40 mg mjnxyw20 mg PO QPMpotassium chloride 20 mEq tablet extended vxoezqc18 meq PO BID Qty: 20 0RFmetoprolol succinate 50 mg tablet extended release 24 hr50 mg PO DAILYmethotrexate sodium 2.5 mg tablet2.5 mg PO X2Jftqcvpjrvcwdsaxfghc 25 mg mg PO DAILYprednisone 10 mg tabletSee Taper PO BIDTaper: predniSONE 60-1060 mg Daily for 4 Days and 0 Hour50 mg Daily for 4 Days and 0 Hour40 mg Daily for 4 Days and 0 Hour30 mg Daily for 4 Days and 0 Hour20 mg Daily for 4 Days and 0 Hour10 mg Daily for 4 Days and 0 Hourfluconazole 150 mg qmowpr220 mg PO Q3D Qty: 2 0RFmetformin 1,000 mg tablet1,000 mg PO DAILY Qty: 10 0RFDischarge Orders:Discharge Order (Routine); Ordered 09/27/24Ordered By: Anand Cobianerrals:[facility] [Outside]Yoko Kaminski DO [Physician] - 10/03/24 3:30 pmEdvin Casiano MD [Primary Care Provider] - 10/05/24 11:15 am()Discharge Diet: Cardiac, Diabetic and Soft MechanicalDischarge Activity: Resume usual activity and Increase activity as toleratedPatient Instructions: Prednisone (By mouth) (Prednisone Intensol, Prednicot, Deltasone, Ashanti), Insulin Glargine (By injection) (Lantus, Lantus SoloStar, Toujeo, Semglee), Insulin Lispro (By injection) (Humalog, Humalog Pen, Lispro-PFC,..., How to Give an Insulin Injection (DC), Oral Herpes Infection (ED), Toxic Epidermal Necrolysis (DC), Skin Yeast Infection (ED), How to Check your Blood Sugar (DC), Opioid SafetyActivity Restrictions/Additional Instructions:Your goal blood pressure is less than 140/90 mmHg. Please check your blood pressure daily at home maintain a blood pressure diary. Follow-up with a primary care provider within next 1 week for adjustment of antihypertensive.Continue taking your steroids I have directed until you see your patient financial services manager on set appointment.For now please avoid hydrochlorothiazide, fluconazole and methotrexate.Check your blood sugars daily at home and maintain a blood sugar diary 3 times before meals. Follow-up with a primary care provider on set appointment with a blood sugar and a blood pressure diary for further adjustment of medications as needed.Discharge AttestationsTime Spent in Discharge Care*: greater than 30 minSpecific Discharge Activities: educating patient, discussing with pcp/other providers, discussing with manager rn case/social workers/dc planners, documenting/other paperwork and evaluating patient/reviewing dataStatus at Discharge: Cognitive status at discharge: cognitively intact, Behavioral status at discharge: cooperative, Functional status at discharge: independent ambulation, Overall status at discharge: patient is progressing back to baselineQuality MetricsClinical Quality Measures[ No reported AMI, CVA or VTE this stay]CodingLevel of Care [id number] time (in minutes) for Discharge: 70DiagnosesDrug reaction with eosinophilia and systemic symptoms D72.10; T50.905ATEN (toxic epidermal necrolysis) L51.2Acute on chronic renal insufficiency N28.9; N18.9Transaminitis R74.01Thrombocytopenia D69.6Neutropenia D70.9Candidiasis B37.9Abdominal wall cellulitis L03.311Chronic steroid useHyperglycemia R73.9Diabetes mellitus E11.9Acute maculopapular rash H28Nslqxpk pain syndrome G89.4Left subclavian artery occlusion I70.8HSV (herpes simplex virus) dendritic keratitis B00.52Dictated By:Anand Kat MDSigned By:Anand Kat MDSigned Date/Time:09/27/24 1843DD/ 1029 Edvin Casiano MD [address] [place] [address], [phone], [facility] 04/18/2025 12:40:29 5 text/html one week f/u after pausing Spironolactone and increasing insulin and gabapentin sugars seem better after dinner since the increase in after dinner insulin increase in gabapentin seems to cause very little drowsiness during the day. her brandon is controlled. will continue current dose at least another weak. Edvin Casiano MD [address] [place] [address], [phone], [facility] 04/27/2025 13:38:36 OBGyn Episode Ob Episode Information Episode Created Date Number of Fetuses Patient Bloodtype Patient rh Status Prepregnancy Weight lbs Domestic Partner Domestic Partner Phone Father Name Featheredger And Reducer Machine Status 11/21/19 25 1 CLOSED Fetus Data First Name Last Name Admitted to NICU Weight (g) Sex Living Outcome Pediatric Complications Fetus ID Race Codes Race Delivery Type 7125 Nikolas Calculation Initial Nikolas Date Initial Exam Date Initial Exam Provider Initial Ultrasound Date Last Menstrual Period Date Ultra Sound Weeks Gestation 11/21/2024 0 Eighteen To Twenty Week Nikolas Update Ultra Sound Date Fundal Height At Umbil Quickening Date Ultra Sound Latest Weeks Gestation Final Nikolas Confirmed By Final Nikolas Confirmed Date Final Nikolas Date Ultra Sound Latest Days Gestation 0 0 Pre- Flowsheet Flowsheet Date 11/22/2024 Curtis Score Blood Edema Fundus Height Fundus Units Glucose Ketones Leukocytes Nitrite Labor Signs Protein Cervic Dilation Cervic Effacement Cervic Station Type Weight in lbs Pre/Post Dialysis Refused Weight [id number] BP Diastolic BP Location Tested BP Systolic BP Type 72 156 Fetus Heart Rate Present Fetus Movement Comments Menstrual History Last Menstrual Date Menses Monthly On Bcp Conception Prior Menses Frequency Hcg Plus Date Menarche Onset Age Delivery Information Delivery Date Delivery Type Labor Anesthesia Weeks Gestation Incision Type Labor Labor Length Hrs Delivered By Post Complications Tubal Sterilization Discharge Date Comments Discharge Information Feeding Method Contraceptive Method Maternal HG B and HCT Levels
--- OUTSIDE RECORDS SUMMARY | 2025-05-04 08:12 | XMS_ITS | Encounter Summary ---
Author Organization [facility] Address 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
--- OUTSIDE RECORDS SUMMARY | 2025-05-04 08:13 | XMS_ITS | Encounter Summary ---
Author Organization [employer] [facility] Address [address] [place] [address] Care Team Providers Care Wash Tank Tender Name Role Phone Unavailable Primary Care Provider Unavailabl e Encounter Details Date Type Department Care Team (Latest Contact Info) Description 07/05/2002 Outpatient Historical [facility] Rafael Jeong MD [address] [place] [address] CHEST SWELLING/MASS/LUMP (Primary Dx); TOBACCO USE DISORDER Social History Tobacco Use Types Packs/Day Years Used Date Smoking Tobacco: Never Assessed Comments Unknown Sex and Gender Information Value Date Recorded Sex Assigned at Not on file 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
--- OUTSIDE RECORDS SUMMARY | 2025-05-04 08:13 | XMS_ITS | Encounter Summary ---
Author Organization [facility] Address [address] 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
--- OUTSIDE RECORDS SUMMARY | 2025-05-04 08:13 | XMS_ITS | Encounter Summary ---
Author Organization [facility] Address [address] [place] [address] Care Team Providers Care Vamp Seamer Name Role Phone Unavailable Primary Care Provider Unavailabl e Encounter Details Date Type Department Care Team (Latest Contact Info) Description 08/03/[address] 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
--- OUTSIDE RECORDS SUMMARY | 2025-05-04 08:13 | XMS_ITS | Encounter Summary ---
Author Organization [employer] [facility] Address [address] [place] [address] Care Team Providers Care Credit Union Examiner Name Role Phone Unavailable Primary Care Provider Unavailabl e Encounter Details Date Type Department Care Team (Latest Contact Info) Description 04/26/1999 Outpatient Historical [facility] Rafael Jeong MD [address] [place] [address] Unspecified essential hypertension (Primary Dx); Coronary atherosclerosis of unspecified type of vessel, [place] or graft Social History Tobacco Use Types Packs/Day Years Used Date Smoking Tobacco: Never Assessed Comments Unknown Sex and Gender Information Value Date Recorded Sex Assigned at Not on file Legal Sex 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
--- OUTSIDE RECORDS SUMMARY | 2025-05-04 08:13 | XMS_ITS | Encounter Summary ---
Author Organization [employer] [facility] Address [address] [place] [address] Care Team Providers Care Assembler Molded Frames Name Role Phone Unavailable Primary Care Provider Unavailabl e Encounter Details Date Type Department Care Team (Latest Contact Info) Description 09/08/2002 Outpatient Historical [facility] Rafael Jeong MD [address] [place] [address] FRACTURE NOS-CLOSED (Primary Dx); HYPERTENSION NOS; INSOMNIA NEC; General symptoms NEC; VACCINE FOR INFLUENZA Social History Tobacco Use Types Packs/Day Years Used Date Smoking Tobacco: Never Assessed Comments Unknown Sex and Gender Information Value Date Recorded Sex Assigned at Not on file 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
--- OUTSIDE RECORDS SUMMARY | 2025-05-04 08:13 | XMS_ITS | Encounter Summary ---
Author Organization [facility] Address [address] [place] [address] Care Team Providers Care Medical Coding Instructor Name Role Phone Unavailable Primary Care Provider Unavailabl e Encounter Details Date Type Department Care Team (Latest Contact Info) Description 10/13/2002 Outpatient Historical HIS [facility] Rafael Jeong MD [address] [place] [address] HYPERTENSION NOS (Primary Dx); INSOMNIA NEC; General symptoms NEC; OSTEOPOROSIS NOS Social History Tobacco Use Types Packs/Day Years Used Date Smoking Tobacco: Never Assessed Comments Unknown Sex and Gender Information Value Date Recorded Sex Assigned at Not on file 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
--- OUTSIDE RECORDS SUMMARY | 2025-05-04 08:13 | XMS_ITS | Encounter Summary ---
Author Organization [employer] [facility] Address [address] [place] [address] Care Team Providers Care Healthcare Prof Name Role Phone Unavailable Primary Care Provider Unavailabl e Encounter Details Date Type Department Care Team (Latest Contact Info) Description 12/24/1999 Outpatient Historical HIS [facility] Rafael Jeong MD [address] [place] [address] Abnormal involuntary movements(781.0) (Primary Dx); General symptoms NEC; Unspecified essential hypertension Social History Tobacco Use Types Packs/Day Years Used Date Smoking Tobacco: Never Assessed Comments Unknown Sex and Gender Information Value Date Recorded Sex Assigned at Not on file 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
--- OUTSIDE RECORDS SUMMARY | 2025-05-04 08:13 | XMS_ITS | Encounter Summary ---
Author Organization [facility] Address [address] [place] [address] Care Team Providers Care Tractor Operator Battery Name Role Phone Unavailable Primary Care Provider Unavailabl e Encounter Details Date Type Department Care Team (Latest Contact Info) Description 07/27/2002 Outpatient Historical [facility] Oral and Maxillo Surgery- [place] [address] [place] [address] Ezekiel Mars, PhD NO ADDRESS ON FILE UNSPEC DENTAL CARIES (Primary Dx) Social History Tobacco Use Types Packs/Day Years Used Date Smoking Tobacco: Never Assessed Comments Unknown Sex and Gender Information Value Date Recorded Sex Assigned at Not on file 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
--- OUTSIDE RECORDS SUMMARY | 2025-05-04 08:13 | XMS_ITS | Encounter Summary ---
Author Organization [facility] Address [address] 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
--- OUTSIDE RECORDS SUMMARY | 2025-05-04 08:13 | XMS_ITS | Encounter Summary ---
Author Organization [employer] [facility] Address [address] [place] [address] Care Team Providers Care Slab Depiler Operator Name Role Phone Unavailable Primary Care Provider Unavailabl e Encounter Details Date Type Department Care Team (Latest Contact Info) Description 12/28/2000 Outpatient Historical HIS [facility] Rafael Jeong MD [address] [place] [address] Unspecified essential hypertension (Primary Dx); Coronary atherosclerosis of unspecified type of vessel, [place] or graft; Closed fracture of dorsal (thoracic) vertebra without mention of spinal cord injury (CMS/HCC); Lumbago Social History Tobacco Use Types Packs/Day Years Used Date Smoking Tobacco: Never Assessed Comments Unknown Sex and Gender Information Value Date Recorded Sex Assigned at Not on file 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
--- OUTSIDE RECORDS SUMMARY | 2025-05-04 08:13 | XMS_ITS | Encounter Summary ---
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
--- OUTSIDE RECORDS SUMMARY | 2025-05-04 08:13 | XMS_ITS | Encounter Summary ---
Author Organization [employer] [facility] Address [address] [place] [address] Care Team Providers Care Cake Puller Name Role Phone Unavailable Primary Care Provider Unavailabl e Encounter Details Date Type Department Care Team (Latest Contact Info) Description 09/22/2002 Outpatient Historical HIS [facility] Rafael Jeong MD [address] [place] [address] INSECT BITE NEC (Primary Dx); Nonvenom arthropod bite Social History Tobacco Use Types Packs/Day Years Used Date Smoking Tobacco: Never Assessed Comments Unknown Sex and Gender Information Value Date Recorded Sex Assigned at Not on file 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
--- OUTSIDE RECORDS SUMMARY | 2025-05-04 08:13 | XMS_ITS | Encounter Summary ---
Author Organization [employer] [facility] Address [address] [place] [address] Care Team Providers Care Lead Tinner Name Role Phone Unavailable Primary Care Provider Unavailabl e Encounter Details Date Type Department Care Team (Latest Contact Info) Description 08/09/2002 Outpatient Historical HIS [facility] Rafael Jeong MD [address] [place] [address] FRACTURE NOS-CLOSED (Primary Dx); General symptoms NEC; DEPRESSIVE DISORDER NEC; GENERALIZED ANXIETY DIS Social History Tobacco Use Types Packs/Day Years Used Date Smoking Tobacco: Never Assessed Comments Unknown Sex and Gender Information Value Date Recorded Sex Assigned at Not on file 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
--- OUTSIDE RECORDS SUMMARY | 2025-05-04 08:13 | XMS_ITS | Encounter Summary ---
Author Organization [employer] [facility] Address [address] [place] [address] Care Team Providers Care Furnace Firer Name Role Phone Unavailable Primary Care Provider Unavailabl e Encounter Details Date Type Department Care Team (Latest Contact Info) Description 01/18/2001 Outpatient Historical HIS [facility] Rafael Jeong MD [address] [place] [address] Benign koby skin trunk (Primary Dx) Social History Tobacco Use Types Packs/Day Years Used Date Smoking Tobacco: Never Assessed Comments Unknown Sex and Gender Information Value Date Recorded Sex Assigned at Not on file 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
[2025-05-04 08:14] LABS: Hematocrit 34.5 % (36-47); Hemoglobin 10.40 g/dL (11.27-16.99); Mean Corpuscular HGB Conc 30.1 g/dL (30-55); Mean Corpuscular Hemoglobin 29.8 pg (27-33); Mean Corpuscular Volume 98.9 fl (85-98); Nucleated Red Blood Cells % 0.3 %; Platelet Count 245 10^3/cmm (157-399); Red Blood Count 3.49 10^6/uL (3.85-5.65); White Blood Count 9.90 10^3/uL (3.29-11.43)
[2025-05-04 08:18] LABS: ABG PCO2 53.1 mmHg (35-45); ABG PH Result 7.36 (7.35-7.45); Alveolar-Arterial Oxygen Gradi 1.0 mmHg (5-10); Arterial Blood Gas Hematocrit 32.7 % (37-47); Blood Gas Allen Test Pos; Blood Gas LPM 3.0 %; Blood Gas Operator Identificat WALCI; Blood Gas Sample Site Radial, left; Blood Gas Sample Type Arterial; Carboxyhemoglobin 2.2 %THgb (0.4-20.1); Glucose Level-ABG 114.0 mg/dL (70-115); HCO3 ABG 29.8 mmol/L (22-26); Ionized Calcium Level - ABG 1.2 mmol/L (1.1-1.4); Methemoglobin 1.3 % (0.4-1.5); Oxygen Saturation ABG 95.2; PO2 ABG 77.1 mmHg (80.0-100.0); Potassium Level - ABG 4.1 mmol/L (3.5-5.0); Sodium Level - ABG 146.0 mmol/L (131-143)
[2025-05-04 08:34] LABS: Alanine Aminotransferase 27 U/L (0-33); Albumin Level 3.4 g/dL (3.5-5.2); Alkaline Phosphatase 95 U/L (35-105); Blood Urea Nitrogen 28 mg/dL (8-23); Calcium 8.7 mg/dL (8.5-10.5); Carbon Dioxide 28 mmol/L (22-29); Chloride 106 mmol/L (98-107); Creatinine Clr Calc Pharmacy 24.0787; Globulin 2.6 g/dL (1.3-4.6); Glucose 108 mg/dL (65-115); Osmolality Calculated 304 mOsm/kg (285-295); Sodium 144 mmol/L (136-145); Total Protein 6.0 g/dL (6.6-8.7)
[2025-05-04 08:35] LABS: Anion Gap 14.6 (5-19); Potassium 4.6 mmol/L (3.5-5.1)
[2025-05-04 08:36] LABS: Aspartate Amino Transferase 18 U/L (0-32)
[2025-05-04 08:43] LABS: NT Pro B Type Natriuretic Pept 801 pg/mL (0-450)
[2025-05-04 09:01] LABS: Respiratory Syncytial Virus Ce NEGATIVE (Negative); SARS-CoV-2 PCR NEGATIVE (Negative)
[2025-05-04 09:26] LABS: ABG PCO2 54.4 mmHg (35-45); ABG PH Result 7.33 (7.35-7.45); Alveolar-Arterial Oxygen Gradi 9.1 mmHg (5-10); Arterial Blood Gas Hematocrit 32.7 % (37-47); Blood Gas Allen Test Pos; Blood Gas Sample Site Radial, left; Blood Gas Sample Type Arterial; Carboxyhemoglobin 2.1 %THgb (0.4-20.1); Glucose Level-ABG 129.0 mg/dL (70-115); HCO3 ABG 28.9 mmol/L (22-26); Ionized Calcium Level - ABG 1.2 mmol/L (1.1-1.4); Methemoglobin 1.4 % (0.4-1.5); Oxygen Saturation ABG 94.9; PO2 ABG 77.5 mmHg (80.0-100.0); PO2 FiO2 Ratio Arterial Blood 258; Potassium Level - ABG 4.2 mmol/L (3.5-5.0); Sodium Level - ABG 145.0 mmol/L (131-143)
--- NOTE | 2025-05-04 09:55 | PM.HP ---
Providers/Chief Complaint Primary Care Provider: Edvin Casiano MD Chief Complaint: resp distress History of Present Illness Katerina Orozco is a 74 year old female patient with a history of COPD, chronic kidney disease (baseline creatinine 1.3?1.6), carotid stenosis, subclavian artery occlusion, type 2 diabetes, and hypertension presenting to the emergency department with acute respiratory distress and hypoxia. Home oxygen is not usually required, yet oxygen saturation was noted in the high-70s to mid-80s on room air, with tachypnea (respiratory rate 21?30 /min). The patient was placed on 4 L O?, which improved saturation. Symptoms include shortness of breath and a dry (non-productive) cough; no hemoptysis was reported. There is no fever, nausea, vomiting, or recent rash, though diarrhea was noted after starting magnesium pills. A prior full-body rash occurred in August due to methotrexate. Chest X-ray showed possible prominence/right lower-lobe opacity; radiology felt this might be positional, but possible pneumonia was considered. Laboratory data: pH 7.36/CO? 53 mm Hg/Maxwell? 77 mm Hg, Hb 10.4 g/dL, creatinine 2.0 mg/dL, CRP 5.2 mg/dL, BNP 801 pg/mL, albumin 3.4 g/dL, negative influenza/RSV/COVID tests. The patient occasionally chokes while drinking, raising concern for aspiration. Nebulized bronchodilator treatments (DuoNeb) provide limited relief. Smoking cessation has been attempted but the patient resumed smoking after six months. Review of Systems Const: Denies: fever(s), chills, body aches or malaise ENMT: Denies: throat pain Card: Denies: chest pain, edema, pre-syncope or dyspnea on exertion Resp: Reports: dyspnea, non-productive cough and wheezing; Denies: productive cough, change in phlegm color or hemoptysis GI: Reports: diarrhea; Denies: abdominal pain, nausea, vomiting, constipation, hematochezia or melena : Denies: flank pain, urinary frequency or hematuria Musc: Denies: back pain, joint swelling or joint redness Skin/Breast: Denies: rash or new lesions Neuro: Denies: headache(s) or confusion Medications/Allergies Home Medications ?Medication ?Instructions ?Recorded ?Confirmed ?Last Taken ?Type omeprazole 40 mg capsule,delayed 40 mg PO BID 11/07/19 05/04/25 05/03/25 History release clopidogrel 75 mg tablet 75 mg PO DAILY 08/16/24 05/04/25 05/03/25 History ipratropium 0.5 mg-albuterol 3 mg 3 ml inhalation QID PRN copd 08/16/24 05/04/25 09/11/24 History (2.5 mg base)/3 mL nebulization soln blood-glucose meter (Blood Glucose #1 ea 09/26/24 05/04/25 Unknown Rx Monitoring kit) lancets #100 ea 09/26/24 05/04/25 Unknown Rx pen needle, diabetic 32 gauge x #50 ea 09/26/24 05/04/25 Unknown Rx 1/4 (BD Ultra-Fine Micro Pen Needle) prednisone 10 mg tablet 10 mg PO TID #30 tabs 09/26/24 05/04/25 05/03/25 Rx quetiapine 50 mg tablet 50 mg PO BEDTIME #10 tabs 09/26/24 05/04/25 05/03/25 Rx insulin glargine 100 unit/mL (3 See Rx Instructions .Route .COMPLEX 09/28/24 05/04/25 05/03/25 History mL) subcutaneous pen (Lantus Solostar U-100 Insulin) albuterol sulfate 90 mcg/actuation 1 - 2 puff inhalation .Q4-6H PRN 05/04/25 05/04/25 Unknown History aerosol inhaler Shortness Of Breath Or Wheezing amlodipine 5 mg tablet 5 mg PO DAILY 05/04/25 05/04/25 05/04/25 History cholecalciferol (vitamin D3) 125 125 mcg PO DAILY 05/04/25 05/04/25 05/04/25 History mcg (5,000 unit) tablet (Vitamin D3) ferrous gluconate 324 mg (38 mg 324 mg PO .QOD 05/04/25 05/04/25 05/04/25 History iron) tablet gabapentin 100 mg capsule See Rx Instructions .Route .COMPLEX 05/04/25 05/04/25 05/04/25 History hydralazine 25 mg tablet 25 mg PO TID 05/04/25 05/04/25 05/04/25 History insulin lispro 100 unit/mL See Rx Instructions .Route .COMPLEX 05/04/25 05/04/25 05/03/25 History subcutaneous pen (Humalog KwikPen (U-100) Insulin) irbesartan 300 mg tablet 300 mg PO DAILY 05/04/25 05/04/25 05/03/25 History ketorolac 0.5 % eye drops 1 drp ophthalmic (eye) TID 05/04/25 05/04/25 05/03/25 History magnesium oxide 400 mg PO DAILY 05/04/25 05/04/25 05/03/25 History metformin 500 mg tablet,extended 500 mg PO BID 05/04/25 05/04/25 05/04/25 History release 24 hr metoprolol succinate 50 mg 50 mg PO DAILY 05/04/25 05/04/25 05/03/25 History tablet,extended release 24 hr rosuvastatin 40 mg tablet 40 mg PO BEDTIME 05/04/25 05/04/25 05/03/25 History spironolactone 25 1 tab PO DAILY 05/04/25 05/04/25 Unknown History mg-hydrochlorothiazide 25 mg tablet Allergies Allergy/AdvReac Type Severity Reaction Status Date / Time codeine Allergy itching Verified 11/13/24 16:43 lamotrigine (From Lamictal) Allergy itching Verified 11/13/24 16:43 methotrexate Allergy ALGY-Anaphy Verified 11/13/24 16:43 laxis NSAIDS (Non-Steroidal Allergy ADR-Gastrointestinal Verified 11/13/24 16:43 Anti-Inflamma Upset PFSH Acute PFSH: Medical History Left subclavian artery occlusion Positive occult stool blood test Resolved. CKD (chronic kidney disease) Acute kidney injury superimposed on CKD Hypertension COPD (chronic obstructive pulmonary disease) Carotid stenosis, bilateral Carpal tunnel syndrome left carpal tunnel release DOS: 09/19/[address] Fernando Type 2 diabetes mellitus Cubital tunnel syndrome cubital tunnel release DOS: 09/19/20 Surgical History History of cholecystectomy H/O cataract removal with insertion of prosthetic lens H/O left wrist surgery Family History Sister Cancer Brother Cancer Hypertension Father Hypertension Denies family history of Diabetes CAD (coronary artery disease) Stroke Social History Smoking and tobacco/nicotine status: current every day tobacco/nicotine user Quit status (tobacco/nicotine): has quit using Year quit tobacco: 3 weeks ago Former quit date comment: smoked 1 pack per day x 50 years Alcohol intake: former Year of sobriety/quit date alcohol: 2000 Substance/Drug Use: never Lives independently: Yes Household members: none Housing: House Marital status: Number of children: 3 Pets and animals: Yes Pets & animals: dog(s) Vitals/I&O/Wt Last Vital Signs Temp 98.7 F 05/04/25 08:10 Pulse 82 05/04/25 09:39 Resp 16 05/04/25 08:25 BP 159/70 05/04/25 09:39 Pulse Ox 95 05/04/25 09:39 O2 Del Method BiPAP 05/04/25 09:39 O2 Flow Rate 3 05/04/25 08:25 FiO2 28 05/04/25 09:32 Weight last 48 hrs Weight 74.843 kg Physical Exam Narrative: Accompanied by her son Const: COMMON NORMALS: patient oriented x3 and alert GENERAL APPEARANCE: cooperative ORIENTATION/CONSCIOUSNESS: Yes awake HENMT: COMMON NORMALS: oropharynx normal Neck/C-Spine: COMMON NORMALS: no JVD Resp: AUSCULTATION: wheezes and other (Coarse breath sounds) Cardio: COMMON NORMALS: no JVD, regular rhythm, S1 normal heart sound present, S2 normal heart sound present and No murmurs present (Cardio) RHYTHM: regular rhythm HEART SOUNDS: S1 normal heart sound present and S2 normal heart sound present GI: COMMON NORMALS: Normal to inspection, nondistended, normoactive bowel sounds present, Soft to palpation and non-tender PALPATION: Yes Soft to palpation Extremity: COMMON NORMALS: no joint enlargement GENERAL: Yes edema (2+) Neuro: COMMON NORMALS: patient oriented x3 and moves all extremities SENSORIUM/ORIENTATION: Yes alert Skin: COMMON NORMALS: no rashes or lesions noted GENERAL SKIN EXAM: no rashes or lesions noted Data 05/04/25 07:50 05/04/25 07:50 A&P Assessment and plan 1. Respiratory failure with hypoxia: Severe COPD exacerbation with hypoxemia : Acute worsening of baseline COPD with significant hypoxia (SpO? 78?85% on room air) and elevated CO? (53 mm Hg). Tachypnea, 21-30. Trigger unclear; differential includes infectious process, aspiration, or environmental factors. Baseline oxygen-independent. Reviewed vitals, CBC, imaging, CMP, NT proBNP, flu, RSV, COVID swab, chest x-ray, ED provider note, discussed with ED provider. - Continue supplemental O? to maintain adequate saturation - Administer systemic steroids (e.g., Solu-Medrol) to decrease airway inflammation, monitor for risk of hyperglycemia, hypertension, gastritis, encephalopathy - Continue nebulized bronchodilator therapy (DuoNeb) -Ceftriaxone - Sputum culture if able to provide -Check urine bacterial antigens, MRSA PCR - Consider need for home oxygen pending inpatient response Plan: Acute metabolic encephalopathy: Somewhat lethargic in the ED but does wake up to voice, answers questions. Decreased O2 to 30%, continue to wean off, avoid hyperoxia, target 88-92%. With LIZY on CKD, hold gabapentin, Seroquel for now. Reassess mental status. Possible aspiration pneumonia : Chest X-ray shows right-sided prominence; combined with choking episodes raises concern for early aspiration pneumonia. - Begin empiric antibiotics: ceftriaxone plus azithromycin - Obtain sputum culture if patient produces sputum - Send urinary bacterial antigens and MRSA PCR nasal swab Lower extremity edema: Bilateral 2+ pitting edema. Reassess renal function. Monitor intake and output. Obtain TTE. NT proBNP is elevated but difficult to interpret in the setting of acute on chronic lung disease as well as LIZY on CKD. Elevate lower extremities. Suspected oropharyngeal dysphagia : Patient reports occasional choking on liquids, increasing risk for aspiration. - aspiration precautions - Consult speech therapy for bedside swallow evaluation - Arrange modified barium swallow study once respiratory status stabilizes Nicotine dependence : Patient resumed smoking after a six-month cessation; smoking contributes to COPD exacerbations. - Reinforce smoking-cessation counseling; encourage quit attempt - Discuss pharmacologic aids (e.g., nicotine replacement) when patient is ready LIZY on CKD: Creatinine is up to 2. She does not take any NSAIDs. Does take a irbesartan at home. Hold irbesartan. Obtain urine urea and creatinine. Check CK. Hold diuretic for now. US kidneys. DM2: Continue insulin Lantus, monitor POC glucose. Sliding-scale insulin. Consistent carb diet. Hold metformin. HTN: Continue amlodipine, hydralazine, hold irbesartan for now, hold diuretics for the time being. Monitor blood pressures. PDMP PDMP Reviewed: Not Reviewed Attestations Medical Necessity Statement*: Admission over 2 midnights anticipated for assessment of management of acute respiratory failure with hypoxia with severe exacerbation of COPD, possible suppression, possible recent pneumonia, LIZY on CKD related with underlying diabetes. Diagnoses Respiratory failure with hypoxia J96.91
[2025-05-04] MEDS: methylPREDNISolone sod succ 125 mg/2 mL INJ 60 MG IVP ×3 (10:38→22:15)
[2025-05-04] MEDS: cefTRIAXone 1,000 mg SDV 1000 MG IVP (11:31)
[2025-05-04] MEDS: AZITHROMYCIN ADD-Vantage 500 MG in 0.9% NaCl ADD-Vantage 250 ML 250 MG IV (11:31)
--- NOTE | 2025-05-04 12:54 | US_ITS ---
WS: [id number] RENAL ULTRASOUND HISTORY: LIZY COMPARISON: 09/15/2024, CT 09/28/2024 TECHNIQUE: 2-D and color Doppler imaging of the kidney submitted. Right kidney: 8.2 cm x 4.0 cm x 4.0 cm. Cortex: 1.0 cm Kidney is measuring low normal size. Size has decreased since 09/28/2024. On the CT examination the RIGHT kidney measured 9.5 cm in length. There is significant increased vascularity and loss of the corticomedullary differentiation. Diffuse cortical thinning RIGHT kidney. There are a few small acquired cysts. The largest in the lower pole measures 3.0 x 2.3 x 2.9 cm. Left kidney: 8.7 cm x 3.9 cm x 4.0 cm. Cortex: 1.0 cm LEFT kidney is poorly visualized. Measurements are probably not accurate. Kidney was normal size on the CT of 09/28/2024. There is marked increased echogenicity with loss of the normal corticomedullary junction. Cyst in the mid kidney measures 1.4 x 1.3 x 1.7 cm. There is no obstruction. Aorta: Not visualized. Urinary Bladder: Moderately well distended. No intraluminal filling defect. US/US renal BI* [id number] IMPRESSION: 1. Limited evaluation of the kidneys due to chronic medical renal disease and body habitus. 2. Kidneys are measuring low normal in size and there is increased echogenicit y from chronic medical renal disease. Kidneys have decreased in size since the CT of 09/28/2024. 3. No renal obstruction. 4. Bilateral acquired renal cysts.
--- NOTE | 2025-05-04 12:54 | USCV_ITS ---
Katerina Orozco Age: 74 Gender: F : 1950 Exam Date: 05/04/2025 16:35 Ordering Phys: Jered Selby MD Technologist: EMANI Exam Location: [facility] [place] Indication: Respiratory Distress BP: 119 / 65 HR: 82 Rhythm: Sinus Technical Quality: Adequate MEASUREMENTS (Male / Female) Normal Values 2D ECHO LV Diastolic Diameter PLAX 3.0 cm 4.2 - 5.9 / 3.9 - 5.3 cm IVS Diastolic Thickness 2.1 cm 0.6 - 1.0 / 0.6 - 0.9 cm IVS Systolic Thickness 2.0 cm LVPW Diastolic Thickness 1.9 cm 0.6 - 1.0 / 0.6 - 0.9 cm LVPW Systolic Thickness 1.3 cm LVOT Diameter 2.1 cm LV Ejection Fraction 2D Teich 53.1 % LV Ejection Fraction MOD 4C 57.7 % LV Ejection Fraction MOD 2C 44.0 % LV Ejection Fraction 2C AL 46.7 % LA Diameter 2.9 cm RA Systolic Volume 4C AL 40.9 ml RA Systolic Volume 4C MOD 39.2 ml LA Sys Volume AL 47.9 cm cubed LA Sys Volume Index AL 25.8 cm cubed/m squared Aorta at Sinotubular Diameter 2.0 cm M-MODE LA Ao Ratio MM 1.5 AV Cusp Separation MM 2.0 cm DOPPLER AV Peak Velocity 195.0 cm/s LVOT Peak Velocity 107.0 cm/s AV Area Cont Eq vti 2.4 cm squared AV Area Cont Eq pk 1.8 cm squared MV Peak Velocity 145.0 cm/s MV Area PHT 5.3 cm squared Mitral E to A Ratio 0.6 TR Peak Velocity 101.0 cm/s TR Peak Gradient 4.1 mmHg TV Peak E Velocity 72.0 cm/s PV Peak Velocity 107.0 cm/s FINDINGS Left Ventricle Normal left ventricular size, systolic function and wall thickness, with no regional wall motion abnormalities. Left ventricular ejection fraction is estimated at 60 %. Grade I/IV diastolic dysfunction (abnormal relaxation filling pattern), normal to mildly elevated filling pressures. Grade I/IV diastolic dysfunction (abnormal relaxation filling pattern), normal to mildly elevated filling pressures. Right Ventricle The right ventricle is normal in size and function. Right Atrium The right atrium is normal in size. Left Atrium The left atrium is normal in size. Mitral Valve Moderately thickened mitral valve. Moderate mitral annular calcification. No mitral valve stenosis. No mitral valve regurgitation. Aortic Valve Moderate aortic valve calcification. No aortic valve stenosis. Trace aortic valve regurgitation. Tricuspid Valve Structurally normal tricuspid valve without significant stenosis or regurgitation. Pulmonary artery systolic pressure is normal. Pulmonic Valve Structurally normal pulmonic valve without significant stenosis. There is no pulmonic regurgitation. Pericardium Normal pericardium without effusion. Aorta Normal ascending aorta dimension. IVC The inferior vena cava appears normal. CONCLUSIONS Normal left ventricular size, systolic function and wall thickness, with no regional wall motion abnormalities. Left ventricular ejection fraction is estimated at 60 %. Grade I/IV diastolic dysfunction (abnormal relaxation filling pattern), normal to mildly elevated filling pressures. Grade I/IV diastolic dysfunction (abnormal relaxation filling pattern), normal to mildly elevated filling pressures. Moderately thickened mitral valve. Moderate mitral annular calcification. No mitral valve stenosis. No mitral valve regurgitation. Moderate aortic valve calcification. No aortic valve stenosis. Trace aortic valve regurgitation. There is no pericardial effusion. Right atrial pressure is around 5 mm of mercury. Sarbjit Yousif MD (Electronically Signed) Final Date: 04 May 2025 19:48 S
[2025-05-04] MEDS: metoprolol succinate ER (24 HR) 50 mg Tablet PO (14:07)
--- OUTSIDE RECORDS SUMMARY | 2025-05-04 14:49 | XMS_ITS | Encounter Summary ---
Author Organization [facility] Address [address] John: [place] [address] Care Team Providers Care Pier Hand Helper Name Role Phone Unavailable Primary Care Provider Unavailabl e Encounter Details Date Type Department Care Team (Late st Contact Info) Description 03/01/2001 Outpatient Historical Rafael Jeong MD [address] [place] [address] Social History Tobacco Use Types Packs/Day Years Used Date Smoking Tobacco: Never Assessed Comments Unknown Sex and Gender Information Value Date Recorded Sex Assigned at Not on file Legal Sex Female 3:42 AM MEDICAL CHEMIST Gender Identity Not on file Sexual Orientation Not on file documented as of this encounter Plan of Treatment Not on file documented as of this encounter Visit Diagnoses Not on filedocumented in this encounter
--- OUTSIDE RECORDS SUMMARY | 2025-05-04 14:49 | XMS_ITS | Encounter Summary ---
Author Organization [employer] [facility] Address [address] [place] [address] Care Team Providers Care Cosmetology Teacher Name Role Phone Unavailable Primary Care Provider Unavailabl e Encounter Details Date Type Department Care Team (Latest Contact Info) Description 01/31/2002 Outpatient Historical HIS [facility] Rafael Jeong MD [address] [place] [address] UNSPEC DENTAL CARIES (Primary Dx); CORONARY ATHEROSCLER UNSPEC VESSEL Social History Tobacco Use Types Packs/Day Years Used Date Smoking Tobacco: Never Assessed Comments Unknown Sex and Gender Information Value Date Recorded Sex Assigned at Not on file Legal Sex Female 3:42 AM INTERNET MARKETING MANAGER Gender Identity Not on file Sexual Orientation Not on file documented as of this encounter Plan of Treatment Not on file documented as of this encounter Visit Diagnoses Diagnosis Unspecified dental caries- Primary Coronary atherosclerosis of unspecified type of vessel, otoe-missouria or graft documented in this encounter
--- OUTSIDE RECORDS SUMMARY | 2025-05-04 14:49 | XMS_ITS | Encounter Summary ---
Author Organization [employer] [facility] Address [address] [place] [address] Care Team Providers Care Information Technology Teacher Name Role Phone Unavailable Primary Care Provider Unavailabl e Encounter Details Date Type Department Care Team (Latest Contact Info) Description 02/10/2002 Outpatient Historical [facility] Rafael Jeong MD [address] [place] [address] LUMBAGO (Primary Dx); General symptoms NEC; FX DORSAL VERTEBRA-CLOSE (CMS/HCC) Social History Tobacco Use Types Packs/Day Years Used Date Smoking Tobacco: Never Assessed Comments Unknown Sex and Gender Information Value Date Recorded Sex Assigned at Not on file Legal Sex Female 3:42 AM DAIRY EQUIPMENT SPECIALIST Gender Identity Not on file Sexual [...]
--- OUTSIDE RECORDS SUMMARY | 2025-05-04 14:49 | XMS_ITS | Encounter Summary ---
Author Organization [employer] [facility] Address [address] [place] [address] Care Team Providers Care Director Digital Marketing Name Role Phone Unavailable Primary Care Provider Unavailabl e Encounter Details Date Type Department Care Team (Latest Contact Info) Description 01/10/2002 Outpatient Historical HIS [facility] Rafael Jeong MD [address] [place] [address] LUMBAGO (Primary Dx); NEURALGIA/NEURITIS NOS Social History Tobacco Use Types Packs/Day Years Used Date Smoking Tobacco: Never Assessed Comments Unknown Sex and Gender Information Value Date Recorded Sex Assigned at Not on file Legal Sex Female 3:42 AM CONCRETE TECHNICIAN Gender Identity Not on file Sexual Orientation Not on file documented as of this encounter Plan of Treatment Not on file documented as of this encounter Visit Diagnoses Diagnosis Lumbago- Primary Neuralgia, neuritis, and radiculitis, unspecified documented in this encounter
--- OUTSIDE RECORDS SUMMARY | 2025-05-04 14:49 | XMS_ITS | Encounter Summary ---
Author Organization [employer] [facility] Address [address] [place] [address] Care Team Providers Care Dog Races Manager Name Role Phone Unavailable Primary Care Provider Unavailabl e Encounter Details Date Type Department Care Team (Latest Contact Info) Description 06/25/2001 Outpatient Historical HIS [facility] Rafael Jeong MD [address] [place] [address] General symptoms NEC (Primary Dx); Osteoarthrosis, unspecified whether generalized or localized, unspecified site Social History Tobacco Use Types Packs/Day Years Used Date Smoking Tobacco: Never Assessed Comments Unknown Sex and Gender Information Value Date Recorded Sex Assigned at Not on file Legal Sex Female 3:42 AM ANIMAL FEEDER Gender Identity Not on file Sexual Orientation Not on file documented as of this encounter Plan of Treatment Not on file documented as of this encounter Visit Diagnoses Diagnosis General symptoms NEC- Primary Other general symptoms Osteoarthrosis, unspecified whether generalized or localized, unspecified site documented in this encounter
--- OUTSIDE RECORDS SUMMARY | 2025-05-04 14:49 | XMS_ITS | Encounter Summary ---
Author Organization [employer] [facility] Address [address] [place] [address] Care Team Providers Care Office Clerk Assistant Name Role Phone Unavailable Primary Care Provider Unavailabl e Encounter Details Date Type Department Care Team (Latest Contact Info) Description 03/01/2001 Outpatient Historical HIS [facility] Rafael Jeong MD [address] [place] [address] Lumbago (Primary Dx); Neuralgia, neuritis, and radiculitis, unspecified; General symptoms NEC Social History Tobacco Use Types Packs/Day Years Used Date Smoking Tobacco: Never Assessed Comments Unknown Sex and Gender Information Value Date Recorded Sex Assigned at Not on file Legal Sex Female 3:42 AM NEEDLE SETTER Gender Identity Not on file Sexual Orientation Not on file documented as of this encounter Plan of Treatment Not on file documented as of this encounter Visit Diagnoses Diagnosis Lumbago- Primary Neuralgia, neuritis, and radiculitis, unspecified General symptoms NEC Other general symptoms documented in this encounter
--- OUTSIDE RECORDS SUMMARY | 2025-05-04 14:49 | XMS_ITS | Encounter Summary ---
Author Organization [employer] [facility] Address [address] [place] [address] Care Team Providers Care Community Mental Health Social Worker Name Role Phone Unavailable Primary Care Provider Unavailabl e Encounter Details Date Type Department Care Team (Latest Contact Info) Description 04/18/2002 Outpatient Historical HIS [facility] Rafael Jeong MD [address] [place] [address] General symptoms NEC (Primary Dx); DENTAL DISORDER NOS; FRACTURE NOS-CLOSED Social History Tobacco Use Types Packs/Day Years Used Date Smoking Tobacco: Never Assessed Comments Unknown Sex and Gender Information Value Date Recorded Sex Assigned at Not on file Legal Sex Female 3:42 AM THIRD HELPER Gender Identity Not on file Sexual Orientation Not on file documented as of this encounter Plan of Treatment Not on file documented as of this encounter Visit Diagnoses Diagnosis General symptoms NEC- Primary Other general symptoms Unspecified disorder of the teeth and supporting structures Closed fracture of unspecified bone documented in this encounter
--- OUTSIDE RECORDS SUMMARY | 2025-05-04 14:49 | XMS_ITS | Encounter Summary ---
Author Organization [employer] [facility] Address [address] [place] [address] Care Team Providers Care Gift Shop Clerk Name Role Phone Unavailable Primary Care Provider Unavailabl e Encounter Details Date Type Department Care Team (Latest Contact Info) Description 07/26/2001 Outpatient Historical HIS [facility] Sacha Hendrickson MD [address] [place], [place] [id number] General symptoms NEC (Primary Dx); Unspecified essential hypertension Social History Tobacco Use Types Packs/Day Years Used Date Smoking Tobacco: Never Assessed Comments Unknown Sex and Gender Information Value Date Recorded Sex Assigned at Not on file Legal Sex Female 3:42 AM RETORT UNLOADER Gender Identity Not on file Sexual Orientation Not on file documented as of this encounter Plan of Treatment Not on file documented as of this encounter Visit Diagnoses Diagnosis General symptoms NEC- Primary Other general symptoms Unspecified essential hypertension documented in this encounter
--- OUTSIDE RECORDS SUMMARY | 2025-05-04 14:49 | XMS_ITS | Encounter Summary ---
Author Organization [employer] [facility] Address [address] [place] [address] Care Team Providers Care Ice Delivery Driver Name Role Phone Unavailable Primary Care Provider Unavailabl e Encounter Details Date Type Department Care Team (Latest Contact Info) Description 11/01/2001 Outpatient Historical HIS [facility] Rafael Jeong MD [address] [place] [address] LUMBAGO (Primary Dx); NEURALGIA/NEURITIS NOS; General symptoms NEC; GENERALIZED ANXIETY DIS Social History Tobacco Use Types Packs/Day Years Used Date Smoking Tobacco: Never Assessed Comments Unknown Sex and Gender Information Value Date Recorded Sex Assigned at Not on file Legal Sex Female 3:42 AM REGIONAL COORDINATOR Gender Identity Not on file Sexual Orientation Not on file documented as of this encounter Plan of Treatment Not on file documented as of this encounter Visit Diagnoses Diagnosis Lumbago- Primary Neuralgia, neuritis, and radiculitis, unspecified General symptoms NEC Other general symptoms Generalized anxiety disorder documented in this encounter
--- OUTSIDE RECORDS SUMMARY | 2025-05-04 14:49 | XMS_ITS | Encounter Summary ---
Author Organization [employer] [facility] Address [address] [place] [address] Care Team Providers Care Weigher And Grader Name Role Phone Unavailable Primary Care Provider Unavailabl e Encounter Details Date Type Department Care Team (Latest Contact Info) Description 12/02/2001 Outpatient Historical HIS [facility] Rafael Jeong MD [address] [place] [address] General symptoms NEC (Primary Dx); FX DORSAL VERTEBRA-CLOSE (CMS/HCC); PREOP EXAM OTHER UNSPECIFIED Social History Tobacco Use Types Packs/Day Years Used Date Smoking Tobacco: Never Assessed Comments Unknown Sex and Gender Information Value Date Recorded Sex Assigned at Not on file Legal Sex Female 3:42 AM STRATEGIC ALLIANCES MANAGER Gender Identity Not on file Sexual [...]
--- OUTSIDE RECORDS SUMMARY | 2025-05-04 14:49 | XMS_ITS | Encounter Summary ---
Author Organization [employer] [facility] Address [address] [place] [address] Care Team Providers Care Staff Pharmacist Name Role Phone Unavailable Primary Care Provider Unavailabl e Encounter Details Date Type Department Care Team (Latest Contact Info) Description 08/03/2001 Outpatient Historical HIS [facility] Rafael Jeong MD [address] [place] [address] Lumbago (Primary Dx); General symptoms NEC; Dyspepsia and other specified disorders of function of stomach; Closed fracture of unspecified bone Social History Tobacco Use Types Packs/Day Years Used Date Smoking Tobacco: Never Assessed Comments Unknown Sex and Gender Information Value Date Recorded Sex Assigned at Not on file Legal Sex Female 3:42 AM DAIRY NUTRITION CONSULTANT Gender Identity Not on file Sexual Orientation Not on file documented as of this encounter Plan of Treatment Not on file documented as of this encounter Visit Diagnoses Diagnosis Lumbago- Primary General symptoms NEC Other general symptoms Dyspepsia and other specified disorders of function of stomach Closed fracture of unspecified bone documented in this encounter
--- OUTSIDE RECORDS SUMMARY | 2025-05-04 14:49 | XMS_ITS | Encounter Summary ---
Author Organization [facility] Address [address] [place] [address] Care Team Providers Care Composite Worker Name Role Phone Unavailable Primary Care Provider Unavailabl e Encounter Details Date Type Department Care Team (Latest Contact Info) Description 11/15/2001 Outpatient Historical [facility] Oral [facility] [place]- [place] [address] [place] [address] Ezekiel Mars, PhD NO ADDRESS ON FILE CHRONIC PERIODONTITIS (Primary Dx) Social History Tobacco Use Types Packs/Day Years Used Date Smoking Tobacco: Never Assessed Comments Unknown Sex and Gender Information Value Date Recorded Sex Assigned at Not on file Legal Sex Female 3:42 AM WHIZZER HAND Gender Identity Not on file Sexual Orientation Not on file documented as of this encounter Plan of Treatment Not on file documented as of this encounter Visit Diagnoses Diagnosis Chronic periodontitis- Primary documented in this encounter
--- OUTSIDE RECORDS SUMMARY | 2025-05-04 14:49 | XMS_ITS | Encounter Summary ---
Author Organization [facility] Address [address] [place] [address] Care Team Providers Care Co Founder And President Name Role Phone Unavailable Primary Care Provider Unavailabl e Encounter Details Date Type Department Care Team (Latest Contact Info) Description 04/02/2001 Outpatient Historical HIS [facility] Rafael Jeong MD [address] [place] [address] Osteoarthrosis, unspecified whether generalized or localized, unspecified site (Primary Dx); Panic disorder without agoraphobia; General symptoms NEC; Depressive disorder, not elsewhere classified Social History Tobacco Use Types Packs/Day Years Used Date Smoking Tobacco: Never Assessed Comments Unknown Sex and Gender Information Value Date Recorded Sex Assigned at Not on file Legal Sex Female 3:42 AM EXTRUSION ENGINEER Gender Identity Not on file Sexual Orientation [...]
--- OUTSIDE RECORDS SUMMARY | 2025-05-04 14:49 | XMS_ITS | Encounter Summary ---
Author Organization [employer] [facility] Address [address] [place] [address] Care Team Providers Care Glaze Wiper Name Role Phone Unavailable Primary Care Provider Unavailabl e Encounter Details Date Type Department Care Team (Latest Contact Info) Description 09/28/2001 Outpatient Historical HIS [facility] Rafael Jeong MD [address] [place] [address] LUMBOSACRAL NEURITIS NOS (Primary Dx); PATHOLOGIC FX VERTEBRAE; General symptoms NEC; HYPERTENSION NOS Social History Tobacco Use Types Packs/Day Years Used Date Smoking Tobacco: Never Assessed Comments Unknown Sex and Gender Information Value Date Recorded Sex Assigned at Not on file Legal Sex Female 3:42 AM FLIGHT CREW ORDNANCEMAN Gender Identity Not on file Sexual Orientation Not on file documented as of this encounter Plan of Treatment Not on file documented as of this encounter Visit Diagnoses Diagnosis Thoracic or lumbosacral neuritis or radiculitis, unspecified- Primary Pathologic fracture of vertebrae General symptoms NEC Other general symptoms Unspecified essential hypertension documented in this encounter
--- OUTSIDE RECORDS SUMMARY | 2025-05-04 14:49 | XMS_ITS | Encounter Summary ---
Author Organization [employer] [facility] Address [address] [place] [address] Care Team Providers Care Auction Block Clerk Name Role Phone Unavailable Primary Care Provider Unavailabl e Encounter Details Date Type Department Care Team (Latest Contact Info) Description 03/17/2002 Outpatient Historical HIS [facility] Rafael Jeong MD [address] [place] [address] General symptoms NEC (Primary Dx); NEURALGIA/NEURITIS NOS; LUMBAGO Social History Tobacco Use Types Packs/Day Years Used Date Smoking Tobacco: Never Assessed Comments Unknown Sex and Gender Information Value Date Recorded Sex Assigned at Not on file Legal Sex Female 3:42 AM AUTOMOTIVE MACHINIST Gender Identity Not on file Sexual Orientation Not on file documented as of this encounter Plan of Treatment Not on file documented as of this encounter Visit Diagnoses Diagnosis General symptoms NEC- Primary Other general symptoms Neuralgia, neuritis, and radiculitis, unspecified Lumbago documented in this encounter
--- OUTSIDE RECORDS SUMMARY | 2025-05-04 14:49 | XMS_ITS | Encounter Summary ---
Author Organization [facility] Address [address] John: Epic Prelude ADT [place] [address] Care Team Providers Care Scroll Machine Operator Name Role Phone Unavailable Primary [...] on file Legal Sex Female 3:42 AM AUDIO VIDEO MECHANIC Gender Identity Not on file Sexual Orientation Not on file documented as of this encounter Plan of Treatment Not on file documented as of this encounter Visit Diagnoses Not on filedocumented in this encounter
--- OUTSIDE RECORDS SUMMARY | 2025-05-04 14:49 | XMS_ITS | Encounter Summary ---
Author Organization [employer] [facility] Address [address] [place] [address] Care Team Providers Care Slurry Control Operator Helper Name Role Phone Unavailable Primary Care Provider Unavailabl e Encounter Details Date Type Department Care Team (Latest Contact Info) Description 09/02/2001 Outpatient Historical HIS [facility] Rafael Jeong MD [address] [place] [address] LUMBAGO (Primary Dx); General symptoms NEC; HYPERTENSION NOS; FX LUMBAR VERTEBRA-CLOSE (CMS/HCC) Social History Tobacco Use Types Packs/Day Years Used Date Smoking Tobacco: Never Assessed Comments Unknown Sex and Gender Information Value Date Recorded Sex Assigned at Not on file Legal Sex Female 3:42 AM TIRE BUFFER Gender Identity Not on file Sexual Orientation [...]
--- OUTSIDE RECORDS SUMMARY | 2025-05-04 14:49 | XMS_ITS | Encounter Summary ---
Author Organization [employer] [facility] Address [address] [place] [address] Care Team Providers Care Dewer Name Role Phone Unavailable Primary Care Provider Unavailabl e Encounter Details Date Type Department Care Team (Latest Contact Info) Description 04/29/2001 Outpatient Historical HIS [facility] Rafael Jeong MD [address] [place] [address] Osteoarthrosis, unspecified whether generalized or localized, unspecified site (Primary Dx); General symptoms NEC; Panic disorder without agoraphobia; Depressive disorder, not elsewhere classified Social History Tobacco Use Types Packs/Day Years Used Date Smoking Tobacco: Never Assessed Comments Unknown Sex and Gender Information Value Date Recorded Sex Assigned at Not on file Legal Sex Female 3:42 AM SENIOR APPLICATION SOFTWARE ENGINEER Gender Identity Not on file Sexual [...]
--- OUTSIDE RECORDS SUMMARY | 2025-05-04 14:49 | XMS_ITS | Encounter Summary ---
Author Organization [employer] Address [address] [place] [address] Care Team Providers Care Multiple Resaw Operator Name Role Phone Unavailable Primary Care Provider Unavailabl e Encounter Details Date Type Department Care Team (Latest Contact Info) Description 05/28/2001 Outpatient Historical HIS [facility] Rafael Jeong MD [address] [place] [address] Nonallopathic lesion of abdomen and other sites, not elsewhere classified (Primary Dx); General symptoms NEC; Closed fracture of dorsal (thoracic) vertebra without mention of spinal cord injury (CMS/HCC) Social History Tobacco Use Types Packs/Day Years Used Date Smoking Tobacco: Never Assessed Comments Unknown Sex and Gender Information Value Date Recorded Sex Assigned at Not on file Legal Sex Female 3:42 AM TEST WORKER Gender Identity Not on file Sexual Orientation [...]
--- OUTSIDE RECORDS SUMMARY | 2025-05-04 14:49 | XMS_ITS | Encounter Summary ---
Author Organization [employer] [facility] Address [address] [place] [address] Care Team Providers Care Legal Billing Analyst Name Role Phone Unavailable Primary Care Provider Unavailabl e Encounter Details Date Type Department Care Team (Latest Contact Info) Description 04/23/2001 Outpatient Historical HIS [facility] Rafael Jeong MD [address] [place] [address] Edema (Primary Dx); Sprain rotator cuff Social History Tobacco Use Types Packs/Day Years Used Date Smoking Tobacco: Never Assessed Comments Unknown Sex and Gender Information Value Date Recorded Sex Assigned at Not on file Legal Sex Female 3:42 AM MAMMOGRAPHY TECH Gender Identity Not on file Sexual Orientation Not on file documented as of this encounter Plan of Treatment Not on file documented as of this encounter Visit Diagnoses Diagnosis Edema- Primary Sprain rotator cuff Rotator cuff (capsule) sprain documented in this encounter
--- OUTSIDE RECORDS SUMMARY | 2025-05-04 14:50 | XMS_ITS | Encounter Summary ---
Author Organization [employer] [facility] Address [address] [place] [address] Care Team Providers Care Waterworks Pump Station Operator Name Role Phone Unavailable Primary Care Provider Unavailabl e Encounter Details Date Type Department Care Team (Latest Contact Info) Description 10/13/2002 Outpatient Historical HIS [facility] Rafael Jeong MD [address] [place] [address] HYPERTENSION NOS (Primary Dx); INSOMNIA NEC; General symptoms NEC; OSTEOPOROSIS NOS Social History Tobacco Use Types Packs/Day Years Used Date Smoking Tobacco: Never Assessed Comments Unknown Sex and Gender Information Value Date Recorded Sex Assigned at Not on file Legal Sex Female 3:42 AM WARDROBE COORDINATOR Gender Identity Not on file Sexual Orientation Not on file documented as of this encounter Plan of Treatment Not on file documented as of this encounter Visit Diagnoses Diagnosis Unspecified essential hypertension- Primary Insomnia, unspecified General symptoms NEC Other general symptoms Osteoporosis, unspecified documented in this encounter
--- OUTSIDE RECORDS SUMMARY | 2025-05-04 14:50 | XMS_ITS | Encounter Summary ---
Author Organization [facility] Address [address] 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
--- OUTSIDE RECORDS SUMMARY | 2025-05-04 14:50 | XMS_ITS | Encounter Summary ---
Author Organization [employer] [facility] Address [address] [place] [address] Care Team Providers Care Petrophysical Engineer Name Role Phone Unavailable Primary Care Provider Unavailabl e Encounter Details Date Type Department Care Team (Latest Contact Info) Description 04/26/1999 Outpatient Historical HIS [facility] Rafael Jeong MD [address] [place] [address] Unspecified essential hypertension (Primary Dx); Coronary atherosclerosis of unspecified type of vessel, ekwok or graft Social History Tobacco Use Types Packs/Day Years Used Date Smoking Tobacco: Never Assessed Comments Unknown Sex and Gender Information Value Date Recorded Sex Assigned at Not on file 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
--- OUTSIDE RECORDS SUMMARY | 2025-05-04 14:50 | XMS_ITS | Encounter Summary ---
Author Organization [employer] [facility] Address [address] [place] [address] Care Team Providers Care Earrings Fabricator Name Role Phone Unavailable Primary Care Provider Unavailabl e Encounter Details Date Type Department Care Team (Latest Contact Info) Description 05/26/2002 Outpatient Historical HIS [facility] Rafael Jeong MD [address] [place] [address] General symptoms NEC (Primary Dx) Social History Tobacco Use Types Packs/Day Years Used Date Smoking Tobacco: Never Assessed Comments Unknown Sex and Gender Information Value Date Recorded Sex Assigned at Not on file 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
--- OUTSIDE RECORDS SUMMARY | 2025-05-04 14:50 | XMS_ITS | Encounter Summary ---
Author Organization [facility] Address [address] 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
--- OUTSIDE RECORDS SUMMARY | 2025-05-04 14:50 | XMS_ITS | Clinical Summary ---
Author Organization [facility] Arthur gifford [place] Address [address] [place] [address] Phone Care Team Providers Care Mold Car Pusher Name Role Phone Unavailable Primary Care Provider [...] 12:50 PM CDT 03/24/20 25 025 Discontin ued([facility]) Hospital, Clinic, or Other Facility Administered Medication Ordered Dose Route Frequency Start Date End Date Status triamcinolone acetonide (KENALOG-40) injectable suspension 40 mgIndications:Chronic obstructive pulmonary disease, unspecified COPD type ([facility]) 40 mg IM ONE TIME ONLY 05/02/2025 05/02/2025 En ded Active Problems Problem Noted Date Diagnosed Date Tobacco use 05/02/2025 Encounters Date Type Department Care Team Description 05/02/2025 2:00 PM CDT Ancillary Procedure [facility] Imaging Services[facility] [address] [place] [address] Kaylin Jean Baptiste MD Chronic obstructive pulmonary disease, unspecified COPD type ([facility]) 05/02/2025 1:20 PM CDT Office Visit [facility] [address] [place] [address] Kaylin Jean Baptiste MD PMR (polymyalgia rheumatica) (Primary Dx); Chronic obstructive pulmonary disease, unspecified COPD type ([facility]); On prednisone therapy; Tobacco use 05/02/2025 External Device Data STL ABSTRACTION Provider, Abstract 04/13/[address] [facility] [address] [place] [address] Kaylin Jean Baptiste MD 04/07/2025 Telephone [facility] Rheumatology- [facility] [address] [place] [address] Kaylin Jean Baptiste MD Results 04/04/2025 External Device Data STL ABSTRACTION Provider, Abstract 03/31/2025 Abstract [facility] [address] [place] [address] Kaylin Jean Baptiste MD 03/31/2025 Orders Only [facility] [place] [address] [place] [address] Provider, Abstract 03/24/2025 12:00 PM CDT Office Visit [facility] [address] [place] [address] Kaylin Jean Baptiste MD Myalgia (Primary Dx); [...] on file Legal Sex Female 1:27 AM 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 Gender Identity Not on file Sexual Orientation [...] Description 06/12/2025 1:40 PM CDT Video Visit [facility] Rheumatology- Arthur Hopson [address] [place] [address] Kaylin Jean Baptiste MD [address] [place] [address] Health Maintenance Due Date Last Done Comments DIABETES ANNUAL FOOT EXAM 1967 DIABETES ANNUAL RETINAL EXAM 1967 DIABETES MICROALBUMIN ANNUAL SCREEN 1967 FIT-DNA Q 3 years 1994 FIT/FOBT Q 1 year 1994 Flex Sig/CT Colonography Q 5 years 1994 OSTEOPOROSIS SCREENING 2014 COVID-19 Vaccine (2023- 5 season) 2024 08/16/2021, 12/14/2020, 11/16/2020 RSV VACCINE (60+ or ) (1 - [...] B12 AND FOLATE (03/24/2025 12:28 PM CDT) VITAMIN B12 486 200 - 1100 pg/mL [facility] FOLATE, SERUM 13.0 ng/mL [facility] Comment: Reference Range Low: <3.4 Borderline: 3.4-5.4 Normal: >5.4 Test Performed at: [facility] [place] [address] Negrita Ford MD Blood 03/24/2025 12:2 8 PM CDT 03/24/2025 12:29 PM CDT Kaylin Jean Baptiste MD CHEMISTRY ORDERABLES Final R esult Performing Organization Address [facility]/ZIP Co de Phone Number [facility] [phone] [facility] [address] [place] [address] * CYCLIC CITRULLINATED PEPTIDE AB IGG (03/24/2025 12:28 PM CDT) Pathologist [facility] CYCLIC CITRULLINATED PEPTIDE AB IGG <16 UNITS [facility] Comment: Reference Range Negative: <20 Weak Positive: 20-39 Moderate Positive: 40-59 Strong Positive: >59 Test Performed at: [facility] [place] [address] Negrita Ford MD Blood 03/24/2025 12:2 8 PM CDT 03/24/2025 12:29 PM CDT Kaylin Jean Baptiste MD CHEMISTRY ORDERABLES Final R esult [email or web address] [phone] [facility] [address] [place], [place] [address]ner FR[place] [address] * (ABNORMAL) CBC WITH DIFFERENTIAL (03/24/2025 12:28 [...] [facility] [facility] EOSINOPHILS 0.6 % [facility] BASOPHILS 0.4 % [facility] COMMENT HEMATOLOGY [facility] Comment: Red cell morphology appears unremarkable Review of peripheral smear confirms automated results. Slide review performed at: [facility] [place] [address] [place] [address] Teacher Theater Arts: Negrita Ford M.D CLIA [id number] Test Performed at: [facility] [address] [place] [address] Luis Oliveira Blood 03/24/2025 12:2 8 PM CDT 03/24/2025 12:29 PM CDT Kaylin Jean Baptiste MD HEMATOLOGY ORDERABLES Final Result Performing Organization Address City/[facility]/ZIP Co de Phone Number [facility] [phone] [facility] [address] [place] [address] * SEDIMENTATION RATE (03/24/2025 12:28 PM CDT) ESR (SEDIMENTATION RATE) 18 < OR = 30 mm/h [facility] Comment: Test Performed at: [facility] [address] [place] [address] Luis Duque Blood 03/24/2025 12:2 8 PM CDT 03/24/2025 12:29 PM CDT us Kaylin Jean Baptiste MD HEMATOLOGY ORDERABLES Final Result Performing Organization Address City/[facility]/ZIP Co de Phone Number [facility] [phone] [facility] [address] [place] [address] * RHEUMATOID FACTOR (03/24/2025 12:28 PM CDT) RHEUMATOID FACTOR <10 <14 IU/mL [facility] Comment: Test Performed at: [facility] [address] [place] [address] Negrita Ford MD Blood 03/24/2025 12:2 8 PM CDT 03/24/2025 12:29 PM CDT Kaylin Jean Baptiste MD CHEMISTRY ORDERABLES Final R esult Performing Organization Address City/[facility]/ZIP Co de Phone Number [facility] [phone] [facility] [address] [place] [address] * C-REACTIVE PROTEIN (03/24/2025 12:28 PM CDT) CRP <3.0 <8.0 mg/L [facility] Comment: Test Performed at: [facility] [address] Negrita Ford MD Blood 03/24/2025 12:2 8 PM CDT 03/24/2025 12:29 PM CDT Kaylin Jean Baptiste MD CHEMISTRY ORDERABLES Final R esult Performing Organization Address [facility] Co de Phone Number [facility] [phone] [address] * CORI SCREEN W/REFLEX (03/24/2025 12:28 PM CDT) CORI SCREEN NEGATIVE NEGATIVE [facility] [place] Comment: CORI IFA is a first line [...] AC-0: Negative International Consensus on CORI Patterns (https://doi.org/10.1515/liyf-8371-6295) For additional information, please refer to http://education.Ubooly.InSupply/faq/SLP367 (This link is being provided for informational/ educational purposes only.) Test Performed at: [facility] [address] [place] [address] Negrita Ford MD Blood 03/24/2025 12:2 8 PM CDT 03/24/2025 12:29 PM CDT Kaylin Jean Baptiste MD CHEMISTRY ORDERABLES Final R esult Performing Organization Address City/[facility]/ZIP Co de Phone Number [facility] [phone] [address] * TSH (03/24/2025 12:28 PM CDT) TSH 3.20 0.40 - 4.50 mIU/L [facility] Comment: Test Performed at: [facility] [place] [address] Negrita Ford MD Blood 03/24/2025 12:2 8 PM CDT 03/24/2025 12:29 PM CDT Kaylin Jean Baptiste MD CHEMISTRY ORDERABLES Final R esult Performing Organization Address City/[facility]/ZIP Co de Phone Number [facility] [phone] [address] * (ABNORMAL) LACTATE DEHYDROGENASE (03/24/2025 12:28 PM CDT) LD (LACTATE DEHYDROGENASE) 308(H) 120 - 250 U/L [facility] Comment: Test Performed at: [facility] [place] [address] Negrita Ford MD Blood 03/24/2025 12:2 8 PM CDT 03/24/2025 12:29 PM CDT Kaylin Jean Baptiste MD CHEMISTRY ORDERABLES Final R esult Performing Organization Address City/[facility]/ZIP Co de Phone Number [facility] [phone] [address] * CK (03/24/2025 12:28 PM CDT) [facility] CK 136 18 - 225 U/L [facility] Comment: Test Performed at: [facility] [address] Negrita Ford MD Blood 03/24/2025 12:2 8 PM CDT 03/24/2025 12:29 PM CDT Kaylin Jean Baptiste MD CHEMISTRY ORDERABLES Final R esult Performing Organization Address [facility]/ZIP Co de Phone Number [facility] [phone] [facility] [address] * (ABNORMAL) COMPREHENSIVE METABOLIC PANEL (03/24/2025 12:28 PM CDT) [facility] GLUCOSE 94 65 - 99 mg/dL [facility] Comment: Fasting reference interval BUN 40(H) 7 - 25 mg/dL [facility] RRL CREATININE 1.91(H) 0.60 - 1.00 mg/dL [facility] RR GFR 27(L) > OR = 60 mL/min/1.7 3m2 [facility] RRL BUN/CREAT RATIO 21 6 - 22 (calc) [facility] RRL SODIUM 144 135 - 146 mmol/L [facility] RRL POTASSIUM 4.2 3.5 - 5.3 mmol/L [facility] RRL CHLORIDE 108 98 - 110 mmol/L [facility] RRL CO2 28 20 - 32 mmol/L [facility] RRL CALCIUM 8.0(L) 8.6 - 10.4 mg/dL [facility] RRL TOTAL PROTEIN 5.7(L) 6.1 - 8.1 g/dL [facility] RRL ALBUMIN 3.6 3.6 - 5.1 g/dL [facility] RRL GLOBULIN 2.1 1.9 - 3.7 g/dL (calc) [facility] RRL ALBUMIN/GLOBULIN RATIO 1.7 1.0 - 2.5 (calc) [facility] BILIRUBIN TOTAL 0.4 0.2 - 1.2 mg/dL [facility] ALKALINE PHOSPHATASE 61 37 - 153 U/L [facility] RRL AST 17 10 - 35 U/L [facility] RRL ALT 18 6 - 29 U/L [facility] RRL Comment: Test Performed at: [facility] [address] [place] [address] Luis Oliveira Blood 03/24/2025 12:2 8 PM CDT 03/24/2025 12:29 PM CDT us Kaylin Jean Baptiste MD CHEMISTRY ORDERABLES Final R esult [facility] [phone] [facility] [address] [place] [address] * LIPID PANEL (09/14/2024) Pathologist [facility] ABSTRACTED CHOLESTEROL 147 ABSTRACTED TRIGLYCERIDE 122 ABSTRACTED HDL 88 ABSTRACTED LDL CALCULATED 35 Blood 09/14/2024 us Abstract Provider CHEMISTRY ORDERABLES Final Res ult * HEMOGLOBIN A1C (09/13/2024) Pathologist [facility] ABSTRACTED HGB A1C 9.9 % Blood 09/13/2024 us Abstract Provider CHEMISTRY ORDERABLES Final Res ult from Last 3 Months or Most Recently Relevant to Health Maintenance Insurance RX [facility] Medicare Part D RX [employer] Medicaid [facility] DUAL ADVANTAGE [facility] MEDICAID [place] Advance Directives For more information, please contact: [phone] Documents on File Type Date Recorded Patient Tattoo And Body Artist Expl anation Advance Directive POA 03/24/2025 11:29 AM A dvance Directive POA
--- OUTSIDE RECORDS SUMMARY | 2025-05-04 14:50 | XMS_ITS | Encounter Summary ---
Author Organization [employer] [facility] Address [address] [place] [address] Care Team Providers Care Stations Superintendent Name Role Phone Unavailable Primary Care Provider Unavailabl e Encounter Details Date Type Department Care Team (Latest Contact Info) Description 08/09/2002 Outpatient Historical HIS [facility] Rafael Jeong MD [address] [place] [address] FRACTURE NOS-CLOSED (Primary Dx); General symptoms NEC; DEPRESSIVE DISORDER NEC; GENERALIZED ANXIETY DIS Social History Tobacco Use Types Packs/Day Years Used Date Smoking Tobacco: Never Assessed Comments Unknown Sex and Gender Information Value Date Recorded Sex Assigned at Not on file Legal Sex Female 3:42 AM PUMPMAN Gender Identity Not on file Sexual Orientation Not on file documented as of this encounter Plan of Treatment Not on file documented as of this encounter Visit Diagnoses Diagnosis Closed fracture of unspecified bone- Primary General symptoms NEC Other general symptoms Depressive disorder, not elsewhere classified Generalized anxiety disorder documented in this encounter
--- OUTSIDE RECORDS SUMMARY | 2025-05-04 14:50 | XMS_ITS | Encounter Summary ---
Author Organization [employer] [facility] Address [address] [place] [address] Care Team Providers Care Executive Legal Secretary Name Role Phone Unavailable Primary Care Provider Unavailabl e Encounter Details Date Type Department Care Team (Latest Contact Info) Description 12/15/2002 Outpatient Historical HIS [facility] Rafael Jeong MD [address] [place] [address] LUMBAGO (Primary Dx) Social History Tobacco Use Types Packs/Day Years Used Date Smoking Tobacco: Never Assessed Comments Unknown Sex and Gender Information Value Date Recorded Sex Assigned at Not on file Legal 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
--- OUTSIDE RECORDS SUMMARY | 2025-05-04 14:50 | XMS_ITS | Encounter Summary ---
Author Organization [facility] Address [address] [place] [address] Care Team Providers Care Medical Logistics Specialist Name Role Phone Unavailable Primary Care Provider [...] on file Legal Sex Female 1:27 AM SERVICE DESK AGENT Gender Identity Not on file Sexual Orientation Not on file documented as of this encounter Plan of Treatment Upcoming Encounters Date Type Department Care Team (Late st Contact Info) Description 06/12/2025 1:40 PM CDT Video Visit [facility] Rheumatology- Arthur Hopson [address] [place] [address] Kaylin Jean Baptiste MD [address] [place] [address] documented as of this encounter Visit Diagnoses Not on filedocumented in this encounter
--- OUTSIDE RECORDS SUMMARY | 2025-05-04 14:50 | XMS_ITS | Encounter Summary ---
Author Organization [employer] [facility] Address [address] [place] [address] Care Team Providers Care Ceramic Mold Designer Name Role Phone Unavailable Primary Care Provider Unavailabl e Encounter Details Date Type Department Care Team (Latest Contact Info) Description 11/14/2002 Outpatient Historical HIS [facility] Rafael Jeong MD [address] [place] [address] FRACTURE NOS-CLOSED (Primary Dx); POSTMENOPAUSAL HORMONAL REPLACMT Social History Tobacco Use Types Packs/Day Years Used Date Smoking Tobacco: Never Assessed Comments Unknown Sex and Gender Information Value Date Recorded Sex Assigned at Not on file Legal Sex Female 3: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
--- OUTSIDE RECORDS SUMMARY | 2025-05-04 14:50 | XMS_ITS | Encounter Summary ---
Author Organization [employer] [facility] Address [address] [place] [address] Care Team Providers Care Senior Benefits Manager Name Role Phone Unavailable Primary Care Provider Unavailabl e Encounter Details Date Type Department Care Team (Latest Contact Info) Description 09/22/2002 Outpatient Historical HIS [facility] Rafael Jeong MD [address] [place] [address] INSECT BITE NEC (Primary Dx); Nonvenom arthropod bite Social History Tobacco Use Types Packs/Day Years Used Date Smoking Tobacco: Never Assessed Comments Unknown Sex and Gender Information Value Date Recorded Sex Assigned at Not on file Legal Sex Female 3: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
--- OUTSIDE RECORDS SUMMARY | 2025-05-04 14:50 | XMS_ITS | Encounter Summary ---
Author Organization [email or web address] [facility] Address [address] [place] [address] Care Team Providers Care Clinical Documentation Specialist Name Role Phone Unavailable Primary Care Provider Unavailabl e Encounter Details Date Type Department Care Team (Latest Contact Info) Description 12/28/2000 Outpatient Historical HIS [facility] Rafael Jeong MD [address] [place] [address] Unspecified essential hypertension (Primary Dx); Coronary atherosclerosis of unspecified type of vessel, [place] or graft; Closed fracture of dorsal (thoracic) vertebra without mention of spinal cord injury (CMS/HCC); Lumbago Social History Tobacco Use Types Packs/Day Years Used Date Smoking Tobacco: Never Assessed Comments Unknown Sex and Gender Information Value Date Recorded Sex Assigned at Not on file Legal Sex Female 3:42 AM 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
--- OUTSIDE RECORDS SUMMARY | 2025-05-04 14:50 | XMS_ITS | Encounter Summary ---
Author Organization [employer] [facility] Address [address] [place] [address] Care Team Providers Care Fire Regulator Name Role Phone Unavailable Primary Care Provider Unavailabl e Encounter Details Date Type Department Care Team (Latest Contact Info) Description 09/08/2002 Outpatient Historical HIS [facility] Rafael Jeong MD [address] [place] [address] FRACTURE NOS-CLOSED (Primary Dx); HYPERTENSION NOS; INSOMNIA NEC; General symptoms NEC; VACCINE FOR INFLUENZA Social History Tobacco Use Types Packs/Day Years Used Date Smoking Tobacco: Never Assessed Comments Unknown Sex and Gender Information Value Date Recorded Sex Assigned at Not on file Legal Sex Female 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
--- OUTSIDE RECORDS SUMMARY | 2025-05-04 14:50 | XMS_ITS | Encounter Summary ---
Author Organization [facility] Address [address] [place] [address] Care Team Providers Care Chemist Internship Name Role Phone Unavailable Primary Care Provider Unavailabl e Encounter Details Date Type Department Care Team (Latest Contact Info) Description 08/03/2002 Outpatient Historical [facility] [place] [address] [place] [address] Ezekiel Mars, PhD NO ADDRESS ON FILE SURGERY FOLLOWUP, UNSPEC (Primary Dx) Social History Tobacco Use Types Packs/Day Years Used Date Smoking Tobacco: Never Assessed Comments Unknown Sex and Gender Information Value Date Recorded Sex Assigned at Not on file Legal Sex Female 3:42 AM GAME PRODUCER Gender Identity Not on file Sexual Orientation Not on file documented as of this encounter Plan of Treatment Not on file documented as of this encounter Visit Diagnoses Diagnosis Follow-up examination, following unspecified surgery- Primary documented in this encounter
--- OUTSIDE RECORDS SUMMARY | 2025-05-04 14:50 | XMS_ITS | Encounter Summary ---
Author Organization [facility] Address [address] [facility] [address] [facility] [address] 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
--- OUTSIDE RECORDS SUMMARY | 2025-05-04 14:50 | XMS_ITS | Encounter Summary ---
Author Organization [employer] [facility] Address [address] [place] [address] Care Team Providers Care Process Camera Operator Name Role Phone Unavailable Primary Care Provider Unavailabl e Encounter Details Date Type Department Care Team (Latest Contact Info) Description 01/28/2001 Outpatient Historical HIS [facility] Rafael Jeong MD [address] [place] [address] Urinary tract infection, site not specified (Primary Dx); Other specified menopausal and postmenopausal disorder; Lumbago Social History Tobacco Use Types Packs/Day Years Used Date Smoking Tobacco: Never Assessed Comments Unknown Sex and Gender Information Value Date Recorded Sex Assigned at Not on file Legal Sex Female 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
--- OUTSIDE RECORDS SUMMARY | 2025-05-04 14:50 | XMS_ITS | Encounter Summary ---
Author Organization [facility] Address [address] [place] [address] Care Team Providers Care Circular Saw Filer Name Role Phone Unavailable Primary Care Provider Unavailabl e Encounter Details Date Type Department Care Team (Latest Contact Info) Description 07/27/2002 Outpatient Historical [facility] [place] [address] [place] [address] Ezekiel Mars, PhD NO ADDRESS ON FILE UNSPEC DENTAL CARIES (Primary Dx) Social History Tobacco Use Types Packs/Day Years Used Date Smoking Tobacco: Never Assessed Comments Unknown Sex and Gender Information Value Date Recorded Sex Assigned at Not on file Legal Sex Female 3:42 AM BEAD WRAPPER Gender Identity Not on file Sexual Orientation Not on file documented as of this encounter Plan of Treatment Not on file documented as of this encounter Visit Diagnoses Diagnosis Unspecified dental caries- Primary documented in this encounter
--- OUTSIDE RECORDS SUMMARY | 2025-05-04 14:50 | XMS_ITS | Encounter Summary ---
Author Organization [employer] [facility] Address [address] [place] [address] Care Team Providers Care Payroll Assistant Name Role Phone Unavailable Primary Care Provider Unavailabl e Encounter Details Date Type Department Care Team (Latest Contact Info) Description 07/05/2002 Outpatient Historical [facility] Rafael Jeong MD [address] [place] [address] CHEST SWELLING/MASS/LUMP (Primary Dx); TOBACCO USE DISORDER Social History Tobacco Use Types Packs/Day Years Used Date Smoking Tobacco: Never Assessed Comments Unknown Sex and Gender Information Value Date Recorded Sex Assigned at Not on file 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
--- OUTSIDE RECORDS SUMMARY | 2025-05-04 14:50 | XMS_ITS | Clinical Summary ---
Author Organization [facility] Address [address] 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
--- OUTSIDE RECORDS SUMMARY | 2025-05-04 14:50 | XMS_ITS | Encounter Summary ---
Author Organization [facility] Address [address] 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
--- OUTSIDE RECORDS SUMMARY | 2025-05-04 14:50 | XMS_ITS | Encounter Summary ---
Author Organization [employer] [facility] Address [address] [place] [address] Care Team Providers Care Fitness Instructor Name Role Phone Unavailable Primary Care Provider Unavailabl e Encounter Details Date Type Department Care Team (Latest Contact Info) Description 12/24/1999 Outpatient Historical [facility] Rafael Jeong MD [address] [place] [address] Abnormal involuntary movements(781.0) (Primary Dx); General symptoms NEC; Unspecified essential hypertension Social History Tobacco Use Types Packs/Day Years Used Date Smoking Tobacco: Never Assessed Comments Unknown Sex and Gender Information Value Date Recorded Sex Assigned at Not on file 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
--- OUTSIDE RECORDS SUMMARY | 2025-05-04 14:50 | XMS_ITS | Encounter Summary ---
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
[2025-05-04] MEDS: ketorolac 0.5% Op 5 mL Btl 1 DROP EYE-BOTH ×2 (16:42→21:25)
[2025-05-04] MEDS: insulin glargine 100 units/1 mL 7 UNIT SUBCUT (18:07)
[2025-05-04 23:44] LABS: Glucose Urine UA Trace (Normal); Nitrate Urine Negative (Negative); Specific Gravity, Urine 1.027 (1.005-1.030)
[2025-05-04 23:48] LABS: Add Urine Microscopic? YES
[2025-05-05] VITALS (13 sets, daily range): BP systolic 110–184; BP diastolic 54–79; PULSE 67–92; RESP 16–20; TEMP 36.5–36.7; O2SAT 90–97
[2025-05-05 00:05] LABS: UA Slide Review UA Slide Review Perf
[2025-05-05] MEDS: methylPREDNISolone sod succ 125 mg/2 mL INJ 60 MG IVP ×4 (04:02→21:13)
[2025-05-05 05:18] LABS: Hematocrit 32.0 % (36-47); Hemoglobin 9.60 g/dL (11.27-16.99); Mean Corpuscular HGB Conc 30.0 g/dL (30-55); Mean Corpuscular Hemoglobin 30.0 pg (27-33); Mean Corpuscular Volume 100.0 fl (85-98); Nucleated Red Blood Cells % 0 %; Platelet Count 236 10^3/cmm (157-399); Red Blood Count 3.20 10^6/uL (3.85-5.65); White Blood Count 9.85 10^3/uL (3.29-11.43)
[2025-05-05 06:32] LABS: Anion Gap 17.9 (5-19); Blood Urea Nitrogen 38 mg/dL (8-23); Calcium 8.1 mg/dL (8.5-10.5); Carbon Dioxide 23 mmol/L (22-29); Chloride 103 mmol/L (98-107); Creatinine Clr Calc Pharmacy 20.4717; Glucose 287 mg/dL (65-115); Osmolality Calculated 308 mOsm/kg (285-295); Potassium 4.9 mmol/L (3.5-5.1); Sodium 139 mmol/L (136-145)
[2025-05-05 06:59] LABS: MRSA PCR OZH (swab) NOT DETECTED (Not Detecte)
[2025-05-05] MEDS: insulin glargine 100 units/1 mL 7 UNIT SUBCUT ×2 (08:35→17:24)
[2025-05-05] MEDS: metoprolol succinate ER (24 HR) 50 mg Tablet PO (08:35)
[2025-05-05] MEDS: cefTRIAXone 1,000 mg SDV 1000 MG IVP (10:14)
--- NOTE | 2025-05-05 10:47 | PC.SOCIAL ---
IMM Updated Updated pt on IMM. No questions voiced. Provided pt a copy. Initialed, dated, & timed a copy & placed in chart.
--- NOTE | 2025-05-05 12:41 | P.PN_ITS ---
Subjective 2 Subjective: 74-year-old female admitted wi th COPD exacerbation and clear x-ray but story consistent with aspiration pneumonia. She was seen by Josef from speech therapy and she was found to be aspirating coughing with thin consistencies, nectar and pudding. Modified barium swallow was recommended but just he does not perform those. The needed speech therapist could not come until 4 PM and radiology is not available at that time. The patient has been made n.p.o. and additional treatment for her COPD exacerbation with repeat effort at bedside swallow testing tomorrow with Josef Patient states that she baseline smokes 1-1/2 packs/day but does not think she has sleep apnea. She has been smoking less just prior to admission her last cigarette was yesterday. She is not on oxygen at home typically Vitals/I&O/Wt Last Vital Signs Temp 97.9 F 05/05/25 11:50 Pulse 90 05/05/25 11:50 Resp 18 05/05/25 11:50 BP 139/79 05/05/25 11:50 Pulse Ox 96 05/05/25 11:50 O2 Del Method Nasal Cannula 05/05/25 11:50 O2 Flow Rate 3 05/05/25 11:50 FiO2 28 05/04/25 16:24 05/04/25 05/05/25 05/05/25 22:59 06:59 14:59 Intake Total 756 / 1006 421.667 / 9531.039 3734 / 1370 Output Total 300 / 300 400 / 700 Balance 456 / 706 21.667 / 768.278 1676 / 1370 Weight last 48 hrs Weight 78.018 kg Weight 74.843 kg Physical Exam 2 Narrative: General well-developed well-nourished female mildly tachypneic CV regular rate and rhythm Lungs trace bibasilar crackles there is prolonged x-ray phase with diffuse expiratory wheezes Abdomen positive bowel tones soft nontender Calves no tenderness cords pretrip edema Oropharynx Mallampati 1 Data 05/05/25 05:06 05/05/25 05:06 Micro: Microbiology 05/04/25 18:22 Bacterial Antigens - Final Urine,Clean Catch 05/04/25 18:22 Legionella Urinary Antigen - Final Urine,Clean Catch A&P Assessment and plan 1. Respiratory failure with hypoxia: Severe COPD exacerbation with hypoxemia : Acute worsening of baseline COPD with significant hypoxia (SpO? 78?85% on room air) and elevated CO? (53 mm Hg). Tachypnea, 21-30. Patient improved overnight but noted to be aspirating this morning. She will be n.p.o. for additional time to recover from her COPD exacerbation. She states that if she is found to be aspirating she will simply do the best she can and eating carefully but would not want a feeding tube 2. Aspiration pneumonia: Change antibiotics to Augmentin 875 mg twice daily stop Rocephin and azithromycin 3. Tobacco abuse: Continue nicotine patch patient was counseled regarding need to stop smoking. Her respiratory distress makes it hard to eat safely 4. Carotid stenosis, bilateral: She has had bilateral carotid stenosis endarterectomy 2023 5. Chronic steroid use: Resume steroids PDMP PDMP Reviewed: Not Reviewed Attestations 2 Medical Necessity Statement*: Patient will require additional 2 midnights in hospital for stabilization of COPD speech therapy and treatment for aspiration pneumonia Coding Level of Care Code 99060 Diagnoses Respiratory failure with hypoxia J96.01 Chronicity: acute Aspiration pneumonia J69.0 Tobacco abuse Z72.0 Carotid stenosis, bilateral I65.23 Chronic steroid use Time Spent (min) 35
--- NOTE | 2025-05-05 15:22 | PC.NURSE ---
Pt was educated on aspiration precautions as speech recommends NPO until barium swallow is done, however, pt refuses and expresses understanding of risk for aspiration.
[2025-05-05] MEDS: HYDROcodone-acetaminophen 5-325 mg Tablet 1 TAB PO (18:13)
[2025-05-06] VITALS (15 sets, daily range): BP systolic 140–187; BP diastolic 64–79; PULSE 67–93; RESP 16–20; TEMP 36.5–36.6; O2SAT 93–98
[2025-05-06] MEDS: HYDROcodone-acetaminophen 5-325 mg Tablet 1 TAB PO ×3 (02:47→17:38)
[2025-05-06] MEDS: methylPREDNISolone sod succ 125 mg/2 mL INJ 60 MG IVP ×4 (03:02→20:59)
[2025-05-06 04:51] LABS: Hematocrit 34.2 % (36-47); Hemoglobin 10.20 g/dL (11.27-16.99); Mean Corpuscular HGB Conc 29.8 g/dL (30-55); Mean Corpuscular Hemoglobin 30.1 pg (27-33); Mean Corpuscular Volume 100.9 fl (85-98); Nucleated Red Blood Cells % 0 %; Platelet Count 249 10^3/cmm (157-399); Red Blood Count 3.39 10^6/uL (3.85-5.65); White Blood Count 17.11 10^3/uL (3.29-11.43)
[2025-05-06 05:15] LABS: Anion Gap 15.9 (5-19); Blood Urea Nitrogen 39 mg/dL (8-23); Calcium 8.7 mg/dL (8.5-10.5); Carbon Dioxide 24 mmol/L (22-29); Chloride 106 mmol/L (98-107); Creatinine Clr Calc Pharmacy 25.8589; Glucose 155 mg/dL (65-115); Osmolality Calculated 305 mOsm/kg (285-295); Potassium 4.9 mmol/L (3.5-5.1); Sodium 141 mmol/L (136-145)
[2025-05-06] MEDS: metoprolol succinate ER (24 HR) 50 mg Tablet PO (08:13)
[2025-05-06] MEDS: insulin glargine 100 units/1 mL 7 UNIT SUBCUT ×2 (08:13→17:37)
--- NOTE | 2025-05-06 15:46 | P.PN_ITS ---
Subjective 2 Subjective: 74-year-old female admitted wi th COPD exacerbation had repeat speech therapy evaluation for aspiration pneumonia and noted to have immediate coughing with thin and mildly thick. She swallowed moderately thick liquids using a chin tuck and extra swallows without choking. She did well on pudding thick trials but had delayed throat clearing. She was cued to clear and swallow again. Therapist recommended pur?ed diet with moderately thick liquids. Patient states she swallowed that okay without choking. She states she was very hungry Patient has a friend at bedside patient currently is sleeping. She awakens and is in no distress. Vitals/I&O/Wt Last Vital Signs Temp 97.8 F 05/06/25 11:35 Pulse 77 05/06/25 13:17 Resp 16 05/06/25 13:10 BP 174/70 05/06/25 11:35 Pulse Ox 95 05/06/25 13:10 O2 Del Method Nasal Cannula 05/06/25 13:10 O2 Flow Rate 2 05/06/25 13:10 FiO2 28 05/05/25 23:53 05/06/25 05/06/25 05/06/25 06:59 14:59 22:59 Intake Total 1100 / 3301.667 Output Total 800 / 1200 Balance 300 / 2101.667 Weight last 48 hrs Weight 78.018 kg Weight 78.018 kg Physical Exam 2 Narrative: General well-developed well-nourished female mildly tachypneic CV regular rate and rhythm Lungs no crackles positive prolonged expiratory phase with diffuse expiratory wheezes Abdomen positive bowel tones soft nontender Calves no tenderness cords or pretibial edema Data 05/06/25 04:43 05/06/25 04:43 Micro: Microbiology 05/05/25 14:50 Gram Stain - Final Sputum - Expectorated Sputum Sputum Culture - Preliminary Gram Negative Rods A&P Assessment and plan 1. Respiratory failure with hypoxia: COPD exacerbation with hypoxemia but respiratory rate is down to 16 and patient states she is breathing better. We have modified her diet for aspiration pneumonia precautions. White count is elevated but I think this may be due to steroids 2. Aspiration pneumonia: Continue antibiotics to Augmentin 875 mg twice daily 3. Tobacco abuse: Continue nicotine patch patient was counseled regarding need to stop smoking. Her respiratory distress makes it hard to eat safely Patient states the nicotine patch she has currently is covering her desire to smoke adequately and she feels fine 4. Carotid stenosis, bilateral: She has had bilateral carotid stenosis endarterectomy 2023 5. Chronic steroid use: Resume steroids PDMP PDMP Reviewed: Not Reviewed Attestations 2 Medical Necessity Statement*: Patient remains in the hospital for treatment of aspiration pneumonia with steroids antibiotics nebulizers and will need modified barium swallow on Thursday Coding Level of Care Code 34075 Diagnoses Respiratory failure with hypoxia J96.01 Chronicity: acute Aspiration pneumonia J69.0 Tobacco abuse Z72.0 Carotid stenosis, bilateral I65.23 Chronic steroid use Time Spent (min) 33
[2025-05-07] VITALS (17 sets, daily range): BP systolic 146–171; BP diastolic 70–90; PULSE 65–86; RESP 16–21; TEMP 36.1–36.6; O2SAT 90–99
[2025-05-07] MEDS: methylPREDNISolone sod succ 125 mg/2 mL INJ 60 MG IVP ×4 (03:54→21:46)
[2025-05-07 05:37] LABS: Hematocrit 35.5 % (36-47); Hemoglobin 10.40 g/dL (11.27-16.99); Mean Corpuscular HGB Conc 29.3 g/dL (30-55); Mean Corpuscular Hemoglobin 30.2 pg (27-33); Mean Corpuscular Volume 103.2 fl (85-98); Nucleated Red Blood Cells % 0 %; Platelet Count 227 10^3/cmm (157-399); Red Blood Count 3.44 10^6/uL (3.85-5.65); White Blood Count 11.95 10^3/uL (3.29-11.43)
[2025-05-07 05:58] LABS: Anion Gap 11.8 (5-19); Blood Urea Nitrogen 45 mg/dL (8-23); Calcium 8.7 mg/dL (8.5-10.5); Carbon Dioxide 25 mmol/L (22-29); Chloride 109 mmol/L (98-107); Creatinine Clr Calc Pharmacy 26.3499; Glucose 201 mg/dL (65-115); Osmolality Calculated 309 mOsm/kg (285-295); Potassium 4.8 mmol/L (3.5-5.1); Sodium 141 mmol/L (136-145)
[2025-05-07] MEDS: insulin glargine 100 units/1 mL 7 UNIT SUBCUT ×2 (08:14→16:56)
[2025-05-07] MEDS: metoprolol succinate ER (24 HR) 50 mg Tablet PO (08:14)
[2025-05-07 13:26] LABS: Estmated Average Glucose 171; Hemoglobin A1C 7.6 % (4.0-6.0)
--- NOTE | 2025-05-07 15:16 | P.PN_ITS ---
Subjective 2 Subjective: 74-year-old female admitted wi th COPD exacerbation had repeat speech therapy evaluation for aspiration pneumonia and noted to have immediate coughing with thin and mildly thick. She swallowed moderately thick liquids using a chin tuck and extra swallows without choking. She did well on pudding thick trials but had delayed throat clearing. She was cued to clear and swallow again. Therapist recommended pur?ed diet with moderately thick liquids. And so I put her on a diet consisting of that Accompanied by her daughter Shani. Patient states she was never on oxygen before and that her oxygen level was not particularly low ever when she went to the clinic. She is willing to quit smoking. She would like to advance her diet but admits that her breathing is not back to normal Vitals/I&O/Wt Last Vital Signs Temp 97.0 F L 05/07/25 11:53 Pulse 85 05/07/25 13:39 Resp 18 05/07/25 13:33 BP 154/75 05/07/25 11:53 Pulse Ox 93 05/07/25 13:33 O2 Del Method Nasal Cannula 05/07/25 13:33 O2 Flow Rate 2 05/07/25 13:33 FiO2 28 05/06/25 22:49 05/07/25 05/07/25 05/07/25 06:59 14:59 22:59 Intake Total 1000 / 2306.667 1600 / 1600 Output Total 950 / 950 400 / 400 Balance 50 / 4562.731 4989 / 1200 Weight last 48 hrs Weight 81.057 kg Weight 78.018 kg Physical Exam 2 Narrative: General well-developed well-nourished female mildly tachypneic CV regular rate and rhythm Lungs no crackles positive prolonged expiratory phase with diffuse expiratory wheezes. Lung still fairly tight Abdomen positive bowel tones soft nontender Calves no tenderness cords or trace to 1+ pretibial edema Data 05/07/25 05:32 05/07/25 05:32 Micro: Microbiology 05/05/25 14:50 Gram Stain - Final Sputum - Expectorated Sputum Sputum Culture - Final Pseudomonas aeruginosa A&P Assessment and plan 1. Respiratory failure with hypoxia: COPD exacerbation with hypoxemia but respiratory rate is down to 16 and patient states she is breathing better. We have modified her diet for aspiration pneumonia precautions. White count is elevated but improved with Augmentin and may be in part due to steroid I discussed with the patient that she is not improved as quickly as would be expected and this may be in part due to continued aspiration. We will know more with the modified barium swallow planned for tomorrow 2. Aspiration pneumonia: Continue antibiotics to Augmentin 875 mg twice daily 3. Tobacco abuse: Continue nicotine patch patient was counseled regarding need to stop smoking. Her respiratory distress makes it hard to eat safely Patient states the nicotine patch she has currently is covering her desire to smoke adequately and she feels fine 4. Carotid stenosis, bilateral: She has had bilateral carotid stenosis endarterectomy 2023 5. Chronic steroid use: Resume steroids PDMP PDMP Reviewed: Not Reviewed Attestations 2 Medical Necessity Statement*: Patient kevin in the hospital for continued steroid treatment, antibiotics and nebulizers with modified barium swallow in the morning Coding Level of Care Code 67136 Diagnoses Respiratory failure with hypoxia J96.01 Chronicity: acute Aspiration pneumonia J69.0 Tobacco abuse Z72.0 Carotid stenosis, bilateral I65.23 Chronic steroid use Time Spent (min) 35
[2025-05-08] VITALS (11 sets, daily range): BP systolic 131–169; BP diastolic 69–91; PULSE 68–85; RESP 16–19; TEMP 36.5–36.7; O2SAT 93–98
--- NOTE | 2025-05-08 08:10 | PC.SOCIAL ---
IMM Update Pg. 2 of IMM updated and reviewed with patient, who verbalized understanding. Copy provided.
[2025-05-08] MEDS: insulin glargine 100 units/1 mL 7 UNIT SUBCUT ×2 (08:36→17:04)
[2025-05-08] MEDS: methylPREDNISolone sod succ 125 mg/2 mL INJ 60 MG IVP ×2 (08:37→16:07)
[2025-05-08] MEDS: metoprolol succinate ER (24 HR) 50 mg Tablet PO (08:37)
[2025-05-08 09:18] LABS: Hematocrit 36.3 % (36-47); Hemoglobin 10.70 g/dL (11.27-16.99); Mean Corpuscular HGB Conc 29.5 g/dL (30-55); Mean Corpuscular Hemoglobin 29.3 pg (27-33); Mean Corpuscular Volume 99.5 fl (85-98); Nucleated Red Blood Cells % 0 %; Platelet Count 235 10^3/cmm (157-399); Red Blood Count 3.65 10^6/uL (3.85-5.65); White Blood Count 12.20 10^3/uL (3.29-11.43)
[2025-05-08 09:26] LABS: Alanine Aminotransferase 35 U/L (0-33); Albumin Level 3.1 g/dL (3.5-5.2); Alkaline Phosphatase 92 U/L (35-105); Anion Gap 13.6 (5-19); Aspartate Amino Transferase 14 U/L (0-32); Blood Urea Nitrogen 45 mg/dL (8-23); Calcium 8.8 mg/dL (8.5-10.5); Carbon Dioxide 26 mmol/L (22-29); Chloride 106 mmol/L (98-107); Creatinine Clr Calc Pharmacy 33.5157; Globulin 2.4 g/dL (1.3-4.6); Glucose 212 mg/dL (65-115); Osmolality Calculated 310 mOsm/kg (285-295); Potassium 4.6 mmol/L (3.5-5.1); Sodium 141 mmol/L (136-145); Total Protein 5.5 g/dL (6.6-8.7)
--- NOTE | 2025-05-08 10:15 | FL_ITS ---
WS: [id number] MODIFIED BARIUM SWALLOW TECHNIQUE: Modified barium swallow with speech therapy using multiple consistencies. FLUOROSCOPY TIME: 3min [id number] # of spot films: 0 CLINICAL INFORMATION: Oropharyngeal dysphagia FINDINGS: Multiple consistencies utilized. No difficulties with the barium tablet. Penetration with thin liquids. No cherrie aspiration. Moderate esophageal dysmotility with reflux visualized. Small esophageal hiatal hernia. FL/FL barium swallow modifd 18132 IMPRESSION: 1. Moderate esophageal dysmotility with reflux. 2. Small esophageal hiatal hernia. 3. Penetration with thin liquids. 4. No cherrie aspiration. Please see speech therapy consultation for further detail
--- NOTE | 2025-05-08 12:55 | P.PN_ITS ---
Subjective 2 Subjective: Hospital course, labs appreciated. Patient seen laying comfortably in bed on 2 L of oxygen supplementation. States she is feeling better. Denies any nausea, vomiting, headache. States at home she does not need oxygen and is usually able to walk around by herself and take care of her needs. Vitals/I&O/Wt Last Vital Signs Temp 97.7 F 05/08/25 11:42 Pulse 81 05/08/25 11:42 Resp 18 05/08/25 11:42 BP 169/69 05/08/25 11:42 Pulse Ox 93 05/08/25 11:42 O2 Del Method Nasal Cannula 05/08/25 11:42 O2 Flow Rate 2 05/08/25 08:00 FiO2 28 05/06/25 22:49 05/07/25 05/08/25 05/08/25 22:59 06:59 14:59 Intake Total 360 / 1960 Output Total 1800 / 2200 650 / 650 Balance 360 / 1560 -1800 / -240 -650 / -650 Weight last 48 hrs Weight 81.737 kg Weight 81.057 kg Physical Exam 2 Narrative: General well-developed well-nourished female CV regular rate and rhythm Lungs no crackles positive prolonged expiratory phase with diffuse expiratory wheezes. Lung still fairly tight Abdomen positive bowel tones soft nontender Calves no tenderness cords or trace to 1+ pretibial edema Data 05/08/25 08:59 05/08/25 08:59 Micro: Microbiology 05/05/25 14:50 Gram Stain - Final Sputum - Expectorated Sputum Sputum Culture - Final Pseudomonas aeruginosa A&P Assessment and plan 1. Respiratory failure with hypoxia: Combination of COPD exacerbation along with aspiration pneumonia given concerns for aspiration on admission. Oxygen supplementation keeping saturation over 88%. Sputum culture growing Pseudomonas. Plan for modified barium swallow today and advancing diet accordingly. Add Pulmicort twice daily. Continue with DuoNeb every 6 hour. Wean Solu-Medrol to 60 mg every 8 hourly. Continue with oral Augmentin. Depending on sensitivities we will switch over to Levaquin 750 mg every 48 hours and as per creatinine clearance of 42. Given chronic steroid use for now we will check LDH and beta D glucan. 2. Aspiration pneumonia: As above. 3. Tobacco abuse: Nicotine patch. Patient was counseled regarding need to stop smoking. Her respiratory distress makes it hard to eat safely Patient states the nicotine patch she has currently is covering her desire to smoke adequately and she feels fine 4. Carotid stenosis, bilateral: She has had bilateral carotid stenosis endarterectomy 2023 5. Chronic steroid use: Continue with IV Solu-Medrol for now. Will switch over to oral prednisone at home dose after taper of steroids. Plan: Full code Advance diet as per modified barium. Protonix for PUD prophylaxis Lovenox for DVT prophylaxis PDMP PDMP Reviewed: Not Reviewed Attestations 2 Medical Necessity Statement*: Requires further hospitalization for management of acute hypoxic respiratory failure in setting of COPD exacerbation, aspiration pneumonia Diagnoses Respiratory failure with hypoxia J96.01 Chronicity: acute Aspiration pneumonia J69.0 Tobacco abuse Z72.0 Carotid stenosis, bilateral I65.23 Chronic steroid use
--- NOTE | 2025-05-08 16:33 | PC.NURSE ---
Pt ambulated 150ft with walker on 2.5 liters oxygen. Pt tolerated ambulation well with standby assistance. Did complain of shortness of breath towards end of walk. Pt tolerated well on oxygen. States at home she only walks a short distance to the BR and back to her chair. Feels like she could go home and do this without difficulty as long as she had oxygen available at home.
[2025-05-09] VITALS (12 sets, daily range): BP systolic 150–180; BP diastolic 61–82; PULSE 73–89; RESP 16–18; TEMP 36.4–36.8; O2SAT 88–98
[2025-05-09] MEDS: methylPREDNISolone sod succ 125 mg/2 mL INJ 60 MG IVP ×2 (01:41→08:27)
[2025-05-09] MEDS: metoprolol succinate ER (24 HR) 50 mg Tablet PO (08:26)
[2025-05-09] MEDS: insulin glargine 100 units/1 mL 7 UNIT SUBCUT (08:28)
--- NOTE | 2025-05-09 09:02 | P.DS_ITS ---
Discharge Providers Date of Admission: 05/04/25 11:47 Date of Discharge: May 09, 2025 Attending Provider at Admission: Jered Selby Attending Provider at Discharge: Anand Kat MD Primary Care Provider: Edvin Casiano MD Diagnoses at Discharge Discharge Diagnosis 1. Respiratory failure with hypoxia: 2. Aspiration pneumonia: 3. Tobacco abuse: 4. Carotid stenosis, bilateral: 5. Chronic steroid use: Reason for Visit Reason for Visit: resp distress Brief History: As per HPI: Katerina Orozco is a 74 year old female patient with a history of COPD, chronic kidney disease (baseline creatinine 1.3?1.6), carotid stenosis, subclavian artery occlusion, type 2 diabetes, and hypertension presenting to the emergency department with acute respiratory distress and hypoxia. Home oxygen is not usually required, yet oxygen saturation was noted in the high-70s to mid-80s on room air, with tachypnea (respiratory rate 21?30 /min). The patient was placed on 4 L O?, which improved saturation. Symptoms include shortness of breath and a dry (non-productive) cough; no hemoptysis was reported. There is no fever, nausea, vomiting, or recent rash, though diarrhea was noted after starting magnesium pills. A prior full-body rash occurred in August due to methotrexate. Chest X-ray showed possible prominence/right lower-lobe opacity; radiology felt this might be positional, but possible pneumonia was considered. Laboratory data: pH 7.36/CO? 53 mm Hg/Maxwell? 77 mm Hg, Hb 10.4 g/dL, creatinine 2.0 mg/dL, CRP 5.2 mg/dL, BNP 801 pg/mL, albumin 3.4 g/dL, negative influenza/RSV/COVID tests. The patient occasionally chokes while drinking, raising concern for aspiration. Nebulized bronchodilator treatments (DuoNeb) provide limited relief. Smoking cessation has been attempted but the patient resumed smoking after six months. Hospital Course Hospital Course Patient was admitted to the hospital further evaluation and management of acute hypoxic respiratory failure in setting of aspiration pneumonia, COPD exace rbation. Diet was advanced as per speech evaluation who advised patient to have modified barium swallow. Sputum culture during her hospitalization showed Pseudomonas. Patient has been on chronic steroids with a dose as high as 30 mg for a prolonged. For which there is a concern for atypical pneumonia and further workup with beta D glucan and LDH was sent. During hospitalization she was found to have uncontrolled hyperglycemia for which her home dose of Lantus has been increased to 10 mg twice daily along with continuation of sliding scale. She has been discharged hemodynamically stable condition on oral Augmentin for 3 more days, Levaquin every other day as per creatinine clearance to finish a 7- day course. Home O2 evaluation was done prior to discharge. She was advised in detail to increase dose of Lantus keeping fasting blood sugar less than 140 weekly. She has been discharged on prednisone 10 mg daily for next 1 week followed by 5 mg daily Physical Exam Narrative: General well-developed well-nourished female CV regular rate and rhythm Lungs no crackles positive prolonged expiratory phase with diffuse expiratory wheezes. Lung still fairly tight Abdomen positive bowel tones soft nontender Calves no tenderness cords or trace to 1+ pretibial edema Discharge Data Studies Completed and Pending Completed Studies During Hospitalization Category Date Time Status FL barium swallow modifd [id number] Routine Exams 05/08/25 10:15 Completed XR chest 1V portable [id number] Stat Exams 05/04/25 08:05 Completed CV. echo complete* [id number] Routine Ultrasound 05/04/25 12:54 Completed US kidney bilateral [US renal BI* [id number]] Routine Ultrasound 05/04/25 12:54 Completed Pending at discharge Category Date Time Status 1-3 Beta D Glucan [Fungitell Glucan Assay (Blood)] Lab 05/08/25 08:59 Received Routine Radiology Impressions Chest X-Ray 05/04/25 08:05 IMPRESSION: Stable chest without acute abnormality. Renal Ultrasound 05/04/25 12:54 IMPRESSION: 1. Limited evaluation of the kidneys due to chronic medical renal disease and body habitus. 2. Kidneys are measuring low normal in size and there is increased echogenicity from chronic medical renal disease. Kidneys have decreased in size since the CT of 09/28/2024. 3. No renal obstruction. 4. Bilateral acquired renal cysts. Microbiology 05/05/25 14:50 Sputum - Expectorated Sputum Gram Stain - Final 05/05/25 14:50 Sputum - Expectorated Sputum Sputum Culture - Final Pseudomonas aeruginosa 05/04/25 18:22 Urine,Clean Catch Bacterial Antigens - Final 05/04/25 18:22 Urine,Clean Catch Legionella Urinary Antigen - Final Modified Barium Swallow 05/08/25 10:15 IMPRESSION: 1. Moderate esophageal dysmotility with reflux. 2. Small esophageal hiatal hernia. 3. Penetration with thin liquids. 4. No cherrie aspiration. Please see speech therapy consultation for further detail Laboratory Results WBC 12.20 10^3/uL (3.29-11.43) H 05/08/25 08:59 RBC 3.65 10^6/uL (3.85-5.65) L 05/08/25 08:59 Hgb 10.70 g/dL (11.27-16.99) L 05/08/25 08:59 Hct 36.3 % (36-47) 05/08/25 08:59 MCV 99.5 fl (85-98) H 05/08/25 08:59 MCH 29.3 pg (27-33) 05/08/25 08:59 MCHC 29.5 g/dL (30-55) L 05/08/25 08:59 RDW 14.3 % (12.1-15.1) 05/08/25 08:59 Plt Count 235 10^3/cmm (157-399) 05/08/25 08:59 MPV 9.9 fL (7.4-10.4) 05/08/25 08:59 Neut % (Auto) 86.7 % 05/08/25 08:59 Lymph % (Auto) 3.9 % 05/08/25 08:59 [place] % (Auto) 6.0 % 05/08/25 08:59 Eos % (Auto) 0.0 % 05/08/25 08:59 Baso % (Auto) 0.2 % 05/08/25 08:59 Neut # (Auto) 10.58 10^3/uL (1.8-7.7) H 05/08/25 08:59 Lymph # (Auto) 0.5 10^3/uL (0.8-4.8) L 05/08/25 08:59 [place] # (Auto) 0.7 10^3/uL (0.2-0.9) 05/08/25 08:59 Eos # (Auto) 0.0 10^3/uL (0.0-0.8) 05/08/25 08:59 Baso # (Auto) 0.0 10^3/uL (0.0-0.1) 05/08/25 08:59 Nucleated RBC % (auto) 0 % 05/08/25 08:59 Nucleated RBCs # 0.0 /100WBC 05/08/25 08:59 Specimen Type Arterial 05/04/25 09:15 Sample Site Radial, left 05/04/25 09:15 ABG pH 7.33 (7.35-7.45) L 05/04/25 09:15 ABG pCO2 54.4 mmHg (35-45) H 05/04/25 09:15 ABG pO2 77.5 mmHg (80.0-100.0) L 05/04/25 09:15 ABG PO2/FiO2 Ratio 258 05/04/25 09:15 ABG HCO3 28.9 mmol/L (22-26) H 05/04/25 09:15 ABG O2 Saturation 94.9 05/04/25 09:15 ABG Base Excess 2.2 mmol/L (-2.0-2.0) H 05/04/25 09:15 Nick Test Pos 05/04/25 09:15 A-a O2 Gradient 9.1 mmHg (5-10) 05/04/25 09:15 Hematocrit 32.7 % (37-47) L 05/04/25 09:15 Hgb O2 Saturation 91.5 % (95-100) L 05/04/25 09:15 Carboxyhemoglobin 2.1 %THgb (0.4-20.1) 05/04/25 09:15 Methemoglobin 1.4 % (0.4-1.5) 05/04/25 09:15 Total Hemoglobin 10.7 g/dL (12-16) L 05/04/25 09:15 Sodium 145.0 mmol/L (131-143) H 05/04/25 09:15 Potassium 4.2 mmol/L (3.5-5.0) 05/04/25 09:15 Glucose 129.0 mg/dL (70-115) H 05/04/25 09:15 Ionized Calcium 1.2 mmol/L (1.1-1.4) 05/04/25 09:15 O2 Delivery Device Bipap 05/04/25 09:15 O2 Liters/Min 3.0 % 05/04/25 08:07 FiO2 30.0 % 05/04/25 09:15 Director Biostatistics ID [email or web address] 05/04/25 09:15 Sodium 141 mmol/L (136-145) 05/08/25 08:59 Potassium 4.6 mmol/L (3.5-5.1) 05/08/25 08:59 Chloride 106 mmol/L (98-107) 05/08/25 08:59 Carbon Dioxide 26 mmol/L (22-29) 05/08/25 08:59 Anion Gap 13.6 (5-19) 05/08/25 08:59 BUN 45 mg/dL (8-23) H 05/08/25 08:59 Creatinine 1.5 mg/dL (0.5-0.9) H 05/08/25 08:59 GFR Calculation Not Reportable 05/08/25 08:59 Glucose 212 mg/dL (65-115) H 05/08/25 08:59 POC Glucose 430 mg/dL (70-110) H 05/09/25 06:21 Estimat Average Glucose 171 05/07/25 05:37 Hemoglobin A1c 7.6 % (4.0-6.0) H 05/07/25 05:37 Calculated Osmolality 310 mOsm/kg (285-295) H 05/08/25 08:59 Calcium 8.8 mg/dL (8.5-10.5) 05/08/25 08:59 Total Bilirubin 0.2 mg/dL (0.15-1.2) 05/08/25 08:59 AST 14 U/L (0-32) 05/08/25 08:59 ALT 35 U/L (0-33) H 05/08/25 08:59 Alkaline Phosphatase 92 U/L (35-105) 05/08/25 08:59 Lactate Dehydrogenase 312 U/L (135-214) H 05/08/25 08:59 C-Reactive Protein 5.2 mg/L (0.0-4.9) H 05/04/25 07:50 NT-Pro-B Natriuret Pep 801 pg/mL (0-450) H 05/04/25 07:50 Total Protein 5.5 g/dL (6.6-8.7) L 05/08/25 08:59 Albumin 3.1 g/dL (3.5-5.2) L 05/08/25 08:59 Globulin 2.4 g/dL (1.3-4.6) 05/08/25 08:59 Urine Color Yellow (Yellow) 05/04/25 18:22 Urine Appearance Clear (CLEAR) 05/04/25 18:22 Urine pH 5.5 (5-7) 05/04/25 18:22 Ur Specific [place] 1.027 (1.005-1.030) 05/04/25 18:22 Urine Protein 4+ (Negative) A 05/04/25 18:22 Urine Glucose (UA) Trace (Normal) H 05/04/25 18:22 Urine Ketones Trace (Negative) 05/04/25 18:22 Urine Blood Negative (Negative) 05/04/25 18:22 Urine Nitrate Negative (Negative) 05/04/25 18: Urine Bilirubin Negative (Negative) 05/04/25 18:22 Urine Urobilinogen 0.2 mg/dL (Negative) 05/04/25 18:22 Ur Leukocyte Esterase Negative (Negative) 05/04/25 18:22 Urine RBC 0-2 /hpf (0-2) 05/04/25 18:22 Urine WBC 0-5 /hpf (0-5) 05/04/25 18:22 Ur Squamous Epith Cells 0-5 /hpf (0-5) 05/04/25 18:22 Amorphous Sediment Not Reportable 05/04/25 18:22 Urine Bacteria None seen /hpf (NONE) 05/04/25 18:22 Hyaline Casts 10.32 /lpf 05/04/25 18:22 Ur Random Urea Nitrogn 628 mg/dL 05/04/25 18:22 Urine Creatinine 145 mg/dL (28-217) 05/04/25 18:22 Nasal MRSA (PCR) Not detected (Not Detecte) 05/05/25 05:43 Influenza A (PCR) Negative (Negative) 05/04/25 08:13 Influenza Type B (PCR) Negative (Negative) 05/04/25 08:13 RSV (PCR) Negative (Negative) 05/04/25 08:13 SARS-CoV-2 (PCR) Negative (Negative) 05/04/25 08:13 Vitals Last Vital Signs Temp 97.7 F 05/09/25 07:13 Pulse 88 05/09/25 08:56 Resp 18 05/09/25 08:40 BP 150/61 05/09/25 08:26 Pulse Ox 96 05/09/25 08:40 O2 Del Method Nasal Cannula 05/09/25 08:40 O2 Flow Rate 2 05/09/25 08:40 FiO2 28 05/06/25 22:49 Discharge Plan Discharge Patient Disposition: Home Condition: Stable Prescriptions: New amoxicillin-pot clavulanate 875-125 mg Tablet 1 tab PO 0500,1700 Qty: 6 0RF levofloxacin 750 mg Tablet 750 mg PO Q48H 7 Days Qty: 4 0RF prednisone 5 mg tablet 5 mg PO DIRECTED Qty: 21 0RF Rx Instructions: Take 10 mg daily for 1 week followed by 5 mg daily for 1 week and then stop Continued omeprazole 40 mg capsule,delayed release(DR/EC) 40 mg PO BID insulin lispro [Humalog KwikPen Insulin] 100 unit/mL insulin pen See Rx Instructions .ROUTE .COMPLEX Rx Instructions: Inject 8 units in the morning, 6 units at noon, and 13 units at dinner. metoprolol succinate 50 mg tablet extended release 24 hr 50 mg PO DAILY ketorolac 0.5 % drops 1 drp ophthalmic (eye) TID gabapentin 100 mg capsule See Rx Instructions .ROUTE .COMPLEX Rx Instructions: Take 2 capsules by mouth in the morning, 2 capsules at noon, and 3 capsules in the evening. albuterol sulfate 90 mcg/actuation HFA aerosol inhaler 1 - 2 puff INHALATION .Q4-6H PRN (Reason: Shortness Of Breath Or Wheezing) irbesartan 300 mg tablet 300 mg PO DAILY rosuvastatin 40 mg tablet 40 mg PO BEDTIME ferrous gluconate 324 mg (38 mg iron) tablet 324 mg PO .QOD cholecalciferol (vitamin D3) [Vitamin D3] 125 mcg (5,000 unit) Tablet 125 mcg PO DAILY magnesium oxide 400 mg magnesium Tablet 400 mg PO DAILY ipratropium-albuterol 0.5 mg-3 mg(2.5 mg base)/3 mL solution for nebulization 3 ml INHALATION QID PRN (Reason: copd) clopidogrel 75 mg tablet 75 mg PO DAILY (DME) lancets Misc See Rx Instructions .ROUTE .MEDSUPPLY Qty: 100 0RF Rx Instructions: As directed (DME) blood-glucose meter [Blood Glucose Monitoring] Kit See Rx Instructions .ROUTE .MEDSUPPLY Qty: 1 0RF Rx Instructions: As directed (DME) pen needle, diabetic [BD Ultra-Fine Micro Pen Needle] 32 gauge x 1/4 needle See Rx Instructions .ROUTE .MEDSUPPLY Qty: 50 0RF Rx Instructions: As directed quetiapine 50 mg tablet 50 mg PO BEDTIME Qty: 10 0RF Changed hydralazine 25 mg tablet 50 mg PO TID 30 Days Qty: 180 0RF amlodipine 5 mg tablet 10 mg PO DAILY Qty: 30 0RF insulin glargine [Lantus Solostar U-100 Insulin] 100 unit/mL (3 mL) insulin pen See Rx Instructions .ROUTE .COMPLEX Qty: 15 0RF Rx Instructions: Inject 10 units in the morning and 10 units in the evening. Discontinued spironolacton-hydrochlorothiaz 25-25 mg tablet 1 tab PO DAILY metformin 500 mg tablet extended release 24 hr 500 mg PO BID prednisone 10 mg tablet 10 mg PO TID Qty: 30 0RF Discharge Order = DC NOW: Discharge Order (Routine); Ordered 05/09/25 Ordered By: Anand Kat Other Ambulatory Orders: DME: Oxygen (Order) Location: None Selected Ordered By: Anand Kat [place] [facility] [place] Edvin Casiano MD [Primary Care Provider, [facility]] - 05/16/25 10:45 am Discharge Diet: Cardiac and Diabetic Discharge Activity: Resume usual activity and Increase activity as tolerated Patient Instructions: Prednisone (By mouth), Amoxicillin/Clavulanate Potassium (By mouth), Levofloxacin (By mouth) (Levaquin, Levaquin Leva-long), Using Oxygen at Home (GEN), COPD (Chronic Obstructive Pulmonary Disease) (GEN), Opioid Safety, Patient Portal & Audrey Instructions Activity Restrictions/Additional Instructions: Dysphagia level 7 diet with moderately thickened fluids Please check your blood sugars daily at home and maintain a blood sugar diary. Follow-up with a primary care provider with a blood sugar diary within 2 weeks for adjustment of insulin dose. Check your blood pressure daily at home. Goal blood pressure is less than 140/90 mmHg. Augmentin is the antibiotic which is supposed to take for next 3 days and Levaquin is the antibiotic which is supposed to take once daily for next 7 days. Take Levaquin every other day. Check your blood pressures daily at home. Dose of hydralazine has been increased to 50 mg 3 times a day, amlodipine has been increased to 10 mg daily. Dose of Lantus has been increased to 10 units morning and evening from 7 units morning and evening. Check your blood sugars daily at home. Fasting blood sugar goal for now is less than 140. If blood sugars are more than 140 fasting then you can increase 2 units of Lantus every week till it comes below 140. Take prednisone taper as prescribed. Take prednisone 10 mg daily for next 1 week followed by 5 mg daily. Discharge Attestations Time Spent in Discharge Care*: greater than 30 min Specific Discharge Activities: educating patient, educating and/or supporting family/caregiver, discussing with pcp/other providers, discussing with caseworker intake/social workers/dc planners, documenting/other paperwork and evaluating patient/reviewing data Status at Discharge: Cognitive status at discharge: cognitively intact , Behavioral status at discharge: cooperative , Functional status at discharge: uses cane/walker , Overall status at discharge: patient is back to baseline Quality Metrics Clinical Quality Measures [ No reported AMI, CVA or VTE this stay] Coding Level of Care Code 45120 Total time (in minutes) for Discharge: 70 Diagnoses Respiratory failure with hypoxia J96.01 Chronicity: acute Aspiration pneumonia J69.0 Tobacco abuse Z72.0 Carotid stenosis, bilateral I65.23 Chronic steroid use
--- NOTE | 2025-05-09 09:19 | PC.NURSE ---
Dr. Kat contacted this nurse and gave verbal order for an additional 10 units of Humalog for elevated blood sugar.
[2025-05-09 15:15] LABS: Alanine Aminotransferase 37 U/L (0-33); Albumin Level 3.0 g/dL (3.5-5.2); Alkaline Phosphatase 117 U/L (35-105); Anion Gap 14.4 (5-19); Aspartate Amino Transferase 17 U/L (0-32); Blood Urea Nitrogen 44 mg/dL (8-23); Calcium 8.4 mg/dL (8.5-10.5); Carbon Dioxide 25 mmol/L (22-29); Chloride 103 mmol/L (98-107); Creatinine Clr Calc Pharmacy 30.2724; Globulin 2.1 g/dL (1.3-4.6); Glucose 388 mg/dL (65-115); Osmolality Calculated 313 mOsm/kg (285-295); Potassium 4.4 mmol/L (3.5-5.1); Sodium 138 mmol/L (136-145); Total Protein 5.1 g/dL (6.6-8.7)
[2025-05-11 19:39] LABS: Fungitell 1-3-B Glucan Assay <31 pg/mL (<60); Interpretation Negative (Negative)
== END 2025-05-09 15:52 | disposition home or self-care (01) | DRG 177 ==
LOC: ER 09:58 → ER IP 14:08 → MEDSURG 14:08
PROVIDERS: Internal Medicine; Admitting Provider Internal Medicine; Emergency Provider Family Medicine; PCP Family Medicine; Visit Provider Student in an Organized Health Care Education/Training Program
DX: J69.0 Pneumonitis due to inhalation of food and vomit (principal); J96.01 Acute respiratory failure with hypoxia; J96.02 Acute respiratory failure with hypercapnia; J44.1 Chronic obstructive pulmonary disease with (acute) exacerbation; N17.9 Acute kidney failure, unspecified; I12.9 Hypertensive chronic kidney disease with stage 1 through stage 4 chronic kidney disease, or unspecified chronic kidney disease; E11.22 Type 2 diabetes mellitus with diabetic chronic kidney disease; N18.9 Chronic kidney disease, unspecified; F17.210 Nicotine dependence, cigarettes, uncomplicated; E11.65 Type 2 diabetes mellitus with hyperglycemia; Z79.4 Long term (current) use of insulin; Z79.52 Long term (current) use of systemic steroids; Z79.899 Other long term (current) drug therapy; Z11.52 Encounter for screening for COVID-19; Z79.02 Long term (current) use of antithrombotics/antiplatelets; Z90.49 Acquired absence of other specified parts of digestive tract; Z71.6 Tobacco abuse counseling; Z99.81 Dependence on supplemental oxygen; Z79.84 Long term (current) use of oral hypoglycemic drugs; Z88.5 Allergy status to narcotic agent; Z88.8 Allergy status to other drugs, medicaments and biological substances; Z88.6 Allergy status to analgesic agent
CPT/HCPCS: 36415; 36416; 36600; 71045; 74230; 76770; 80048; 80051; 80053; 81001; 82330; 82570; 82805; 82962; 83036; 83615; 83880; 84540; 85025; 86140; 86403; 87070; 87077; 87186; 87205; 87449; 87637; 92523; 92526; 92610; 92611; 93005; 93306; 94640; 94660; 94664; 94760; 94762; 96372; 99285; J0456; J0696; J1650; J1815; J2919; J7030; J7050; J7626; J9999